=== PATIENT | female | born 1945 | race Caucasian/White ===

== ENCOUNTER 2017-08-28 18:27 | Emergency (ER) | payer MEDICAID, SELFPAY ==
[2017-08-28 18:28] VITALS: BP 153/77; PULSE 74; RESP 16; TEMP 36.9; O2SAT 96; BMI 23.0
--- NOTE | 2017-08-28 18:56 | RAD_ITS ---
STUDY: X-RAY - RIGHT HAND REASON FOR EXAM: Female, 72 years old. MCP pain and swelling TECHNIQUE: 3 view(s) of the hand. COMPARISON: None. FINDINGS: Normal radiocarpal articulation. Normal distal radioulnar joint. Normal visualized carpal bones. Normal carpal articulations Normal carpometacarpal articulation of the thumb. Normal second through fifth carpometacarpal joints. Normal metacarpi. Normal metacarpophalangeal joint of the thumb. Normal interphalangeal joint of the thumb. Normal proximal and distal phalanges of the thumb. Normal metacarpophalangeal joints of the second through fifth fingers. Normal proximal interphalangeal joints of the second through fifth fingers. There are mild degenerative changes of the DIP joints Normal phalanges of the second through fifth fingers. The soft tissue structures are unremarkable. RAD/Hand Min 3 Views IMPRESSION: Mild arthritic changes. No evidence for acute fracture. Electronically Signed: Otto Carrillo MD at 20:16 EDT , Service support ,
--- NOTE | 2017-08-28 20:06 | ED.DCSUM_ITS ---
- ER Visit Summary Date of Service: 08/28/17 Chief Complaint: [] Right knuckle swelling History of Present Illness: The patient is a 72 F [] complaining of right knuckle swelling beginning today after she awoke. Denies any increased use of the extremity or injury to the affected knuckle. She reports her right long finger MCP joint has slight discomfort. No other complaints at this time. Physical Examination: [] Afebrile, vital signs stable. There is slight swelling to the dorsal aspect of the right MCP joint. There is no warmth or erythema. There is good range of motion. Patient is neurovascularly intact distally to the affected digit. Test Results: [] X-rays appear unremarkable per my interpretation of the right hand. Emergency Department Course and Treatment: [] Patient was evaluated with x-rays and no obvious findings evident. Patient was encouraged to ice and take Tylenol for the discomfort. She was instructed to follow-up with her primary care physician. Treatment Plan: [] Follow-up with PCP. Disposition: [] Discharge, stable. Impression: [] Right MCP joint swelling This note was generated with [employer] dictation software. It may contain incorrect words, spelling, and punctuation that were not noted in review of the chart prior to signing ED Disposition - Plan for ED Patient: Chief Complaint: Upper Extremity Injury Referrals: Shawn Almeida MD [Primary Care Provider] -
--- NOTE | 2017-08-28 20:06 | ED.DEP ---
ED Disposition - Plan for ED Patient: Disposition: Home or Assisted Living Chief Complaint: Upper Extremity Injury Instructions: Living with Osteoarthritis, What Is Osteoarthritis? Referrals: Shawn Almeida MD [Primary Care Provider] -
[2017-08-28 20:11] VITALS: BP 148/78; PULSE 75; RESP 14; O2SAT 98
== END 2017-08-28 20:12 | disposition home or self-care (01) ==
PROVIDERS: Emergency Provider Emergency Medicine; Family Provider Family Medicine; PCP Family Medicine
DX: M19.041 Primary osteoarthritis, right hand (principal); E11.9 Type 2 diabetes mellitus without complications; Z79.4 Long term (current) use of insulin; Z79.899 Other long term (current) drug therapy
CPT/HCPCS: 73130; 99282

== ENCOUNTER 2017-10-07 23:13 | Emergency (ER) | payer MEDICAID, SELFPAY ==
[2017-10-07 23:14] VITALS: BP 156/63; PULSE 75; RESP 18; TEMP 36.4; O2SAT 98; BMI 40.9
[2017-10-07] MEDS: HYDROcodone Bitartrate/Apap 5/325 Tablet PO (23:56)
--- NOTE | 2017-10-07 23:59 | RAD_ITS ---
STUDY: X-RAY - RIGHT KNEE REASON FOR EXAM: Female, 72 years old. TECHNIQUE: view(s) of the knee. COMPARISON: None. FINDINGS: There is a moderate degree of osteoarthritis of the knee demonstrated by small spurs from the tibial and femoral condyles and from the margins of the patella. There are no fractures or dislocations and no knee joint effusion. The quadriceps and patellar tendons are normal. The lateral patellofemoral articulation is markedly narrowed and very irregular looking. RAD/Knee 4 or More Views IMPRESSION: No fracture. Moderate osteoarthritis of the right knee Electronically Signed: Richardson Camacho, at 0:24 EDT Tel , Service support ,
--- NOTE | 2017-10-08 00:38 | ED.VISSUMM ---
- ER Visit Summary Date of Service: 10/08/17 Chief Complaint: Right knee pain History of Present Illness: The patient is a [address] Almeida. She reports she has right knee pain that began yesterday. She denies any trauma. No fall, MVA, or change in activity. She describes an aching pain is 10-10 severity. Is worsened by walking. Son relieved with arthritis pain cream or Tylenol. She denies any paresthesias or weakness. Review of systems: General: No fever, chills, cold sweats. Cardiovascular: No chest pain, palpitations. Respiratory: No cough, shortness of breath, dyspnea on exertion. Gastrointestinal: No abdominal pain, nausea, vomiting, diarrhea, melena, or hematochezia. Genitourinary: No dysuria, frequency, hematuria. Skin: No rash. Neuro: No headache, numbness, weakness. Physical Examination: Vitals: Stable. Afebrile. General: Well-nourished and well-developed. Head: Normocephalic atraumatic. Neck: Supple, no lymphadenopathy. No JVD. Nontender. Cardiovascular: Regular rate and rhythm. No murmurs. Respiratory: No respiratory distress. Clear to auscultation bilaterally. Abdominal: Soft, nontender, nondistended, normal bowel sounds. No guarding, rebound, or peritoneal signs. Back: Nontender. Extremities: Mild diffuse tenderness palpation over entire knee. This is moderate over her patella. There is no joint effusion. She has no erythema or warmth to suggest a septic joint. She has good range of motion. She has pain, but no ligamentous instability with anterior posterior drawer or medial/lateral stress. She is neurovascular intact distal this. She is a 2+ dorsalis pedis pulse.. Skin: Normal color, no rash. Neurologic: Alert and oriented ?3. Cranial nerves II through XII are intact. Normal strength and sensation. Psych: Normal affect. Test Results: Right knee x-ray shows degenerative changes and no acute disease. Emergency Department Course and Treatment: Patient was treated with [place] and is resting comfortably. Treatment Plan: Patient will be discharged with [place] and Colace. Instructed to follow-up her primary care physician in 1 week if not improving. Return to the emergency department for any worsening symptoms. Disposition: To home in improved and stable condition. Impression: 1. Right knee pain, acute. This note was generated with [employer] dictation software. It may contain incorrect words, spelling, and punctuation that were not noted in review of the chart prior to signing ED Disposition - Plan for ED Patient: Disposition: Home or Assisted Living Chief Complaint: Lower Extremity Injury Instructions: ED Knee Pain [facility] Prescriptions: Hydrocodone Bitart/Apap 5-325 [[place] 5MG-325MG] 1 tablet PO Q4H PRN PRN 2 Days #10 tablet PRN Reason: Pain Docusate Sodium [Colace] 100 mg PO DAILY #20 cap Referrals: Shawn Almeida MD [Primary Care Provider] - 3-5 Days if not improving
[2017-10-08 01:05] VITALS: BP 137/89; PULSE 84; RESP 22; O2SAT 97
--- NOTE | 2017-10-08 01:05 | ED.RN ---
THIS NURSE REVIEWED D/C INSTRUCTIONS WITH PT. PT VERBALIZED UNDERSTANDING OF INSTRUCTIONS. PT DENIES FURTHER NEEDS OR QUESTIONS AT THIS TIME.
== END 2017-10-08 01:06 | disposition home or self-care (01) ==
LOC: ED 23:54
PROVIDERS: Emergency Provider Emergency Medicine; Family Provider Family Medicine; PCP Family Medicine
DX: M25.561 Pain in right knee (principal); I10 Essential (primary) hypertension; E78.00 Pure hypercholesterolemia, unspecified; E11.9 Type 2 diabetes mellitus without complications; Z79.4 Long term (current) use of insulin; Z79.899 Other long term (current) drug therapy
CPT/HCPCS: 73564; 99282

== ENCOUNTER 2018-04-10 16:20 | Emergency (ER) | payer MEDICAID, SELFPAY ==
[2018-04-10 16:21] VITALS: BP 151/64; PULSE 66; RESP 17; TEMP 36.3; O2SAT 96; BMI 28.0
--- NOTE | 2018-04-10 17:38 | DCINST.ED_ITS ---
ED Disposition - Plan for ED Patient: Chief Complaint: Dental Instructions: ED Tooth Pain Prescriptions: Hydrocodone Bitart/Apap 5-325 [[place] 5MG-325MG] 1 tablet PO Q4H PRN PRN 2 Days #10 tablet PRN Reason: Pain Penicillin V Potassium 500 mg PO 4X/DAY #40 tablet Referrals: Shawn Almeida MD [Primary Care Provider] -
--- NOTE | 2018-04-10 17:42 | ED.DCSUM_ITS ---
- ER Visit Summary Date of Service: 04/10/18 Chief Complaint: Dental pain History of Present Illness: The patient is a 72 F presenting with right lower tooth pain. This has been ongoing for the past week. She has tried aspirin and Tylenol at home. She denies fever or swelling. She does not currently have a dentist. Denies other complaints. Physical Examination: Vitals are stable. Patient is afebrile. Alert no acute distress. HEENT exam: Widespread dental decay, right lower molar tenderness and looseness. No surrounding fluctuance. No sublingual edema. Lungs are clear and equal bilaterally. Heart is regular rate and rhythm. Extremities are unremarkable. Skin is warm and dry. Remainder of exam is unremarkable. Emergency Department Course and Treatment: Patient is given a short course of [place] and penicillin. Advised follow-up with dentist. Advised return to ED if worsening complaints. Disposition: Discharge home Impression: Odontalgia This note was generated with [employer] dictation software. It may contain incorrect words, spelling, and punctuation that were not noted in review of the chart prior to signing ED Disposition - Plan for ED Patient: Chief Complaint: Dental Instructions: ED Tooth Pain Prescriptions: Hydrocodone Bitart/Apap 5-325 [[place] 5MG-325MG] 1 tablet PO Q4H PRN PRN 2 Days #10 tablet PRN Reason: Pain Penicillin V Potassium 500 mg PO 4X/DAY #40 tablet Referrals: Shawn Almeida MD [Primary Care Provider] -
[2018-04-10] MEDS: HYDROcodone Bitartrate/Apap 5/325 Tablet PO (17:52)
[2018-04-10 17:56] VITALS: BP 122/67; PULSE 71; RESP 15; O2SAT 98
== END 2018-04-10 17:59 | disposition home or self-care (01) ==
LOC: ED 17:45
PROVIDERS: Emergency Provider Emergency Medicine; Family Provider Family Medicine; PCP Family Medicine
DX: K02.9 Dental caries, unspecified (principal); I10 Essential (primary) hypertension; E11.9 Type 2 diabetes mellitus without complications; Z79.4 Long term (current) use of insulin; Z79.899 Other long term (current) drug therapy
CPT/HCPCS: 99282

== ENCOUNTER 2018-06-05 14:56 | Emergency (ER) | payer MEDICAID, SELFPAY ==
[2018-06-05 14:57] VITALS: BP 121/52; PULSE 75; RESP 17; TEMP 36.8; O2SAT 95; BMI 26.4
--- NOTE | 2018-06-05 16:31 | CT_ITS ---
STUDY: CT ABDOMEN AND PELVIS WITHOUT CONTRAST REASON FOR EXAM: Female, 73 years old. Left lower quadrant pain RADIATION DOSAGE (If Supplied By Facility): CTDIvol = ( 8.68 ) mGy, DLP = ( 409.64 ) mGycm TECHNIQUE: Transaxial images were obtained from the dome of the diaphragm to the symphysis pubis without oral contrast, and without intravenous contrast. Sagittal and coronal images were reconstructed. Individualized dose optimization techniques were used for this CT. COMPARISON: CT 03/05/2017. FINDINGS: The visualized lung bases are unremarkable. There is likely mild left ventricular enlargement. There is a small left hiatal hernia. There is wall thickening of the lower esophagus. There are mild groundglass opacities within the lung bases. There is wall thickening of the stomach and the stomach is decompressed. There is prior cholecystectomy with surgical clips in the gallbladder fossa. There are no focal liver lesions. Exam is limited due to lack of IV contrast.. Normal spleen. Normal pancreas. There is a small anterior periumbilical fatty hernia. There is mild adjacent skin thickening. There is additional anterior abdominal wall hernia within the upper pelvis. Normal bilateral adrenal glands. Normal right kidney. There are stable 7 mm calculus lower pole of kidney. Mild cortical irregularity left kidney unchanged. There is no hydronephrosis of either kidney. There are stable vascular calcifications in the pelvis. There are no ureteral calculi. Normal visualized stomach. Normal small intestine. There is a moderate colonic fecal load. The appendix is visualized and appears normal. Normal abdominal aorta. Normal inferior vena cava. Normal retroperitoneum. Normal urinary bladder. Evaluation of bony structures is limited due to significant respiratory motion. There are significant multilevel degenerative changes involving the lower lumbar spine with disc osteophyte complexes. There is new significant disc space narrowing at L5-S1 with new mild endplate irregularities with compared to prior MRI lumbar spine. There is worsening loss of height of the L4-L5 disc space as well. There is new vacuum disc phenomena within the L5-S1 disc space. There is likely prior hysterectomy. CT/Abdomen/Pelvis without Cont IMPRESSION: Stable 7 mm left renal calculus, stable mild cortical irregularity left kidney which is either congenital variant versus old renal scarring, no ureteral calculi and no hydronephrosis Moderate colonic fecal load likely partial fecal impaction Significant spondylosis lower lumbar spine with worsening of changes at L4-L5 and L5-S1; the changes at L5-S1 are likely due to degenerative changes secondary to disc space collapse and mild cortical deformities. The possibility of discitis osteomyelitis cannot be excluded. MRI lumbar spine follow-up is recommended Likely mild left ventricular enlargement which could be further evaluated with cardiac echo Small hiatal hernia with wall thickening of the lower esophagus which could be secondary to reflux esophagitis, pathologic wall thickening cannot be excluded; this should be further evaluated with endoscopy or barium swallow Small fatty anterior abdominal wall hernias Wall thickening of the stomach which most likely is due to decompression which could also be further evaluated with upper GI or endoscopy Prior cholecystectomy Likely prior hysterectomy Electronically Signed: Bronson Garza, at 17:45 EST Tel , Service support ,
[2018-06-05] MEDS: 0.9% Normal Saline 1,000 ML 250 ML IV (16:49)
[2018-06-05] MEDS: Ondansetron 4 MG/2 ML Vial IV (16:49)
[2018-06-05] MEDS: Morphine 4 MG/ML Syringe IV (16:49)
[2018-06-05 17:11] LABS: Anion Gap 6 (5-15); BUN 57 mg/dL (7-18); BUN/Creat Ratio 28.8 RATIO (10-20); Calcium,Total 8.5 mg/dL (8.5-10.1); Chloride 107 mmol/L (98-107); Creatinine, Serum 1.98 mg/dL (0.55-1.02); EST Glomerular Filtration Rate 26 mL/min (>60); Est Glom Filt Rate - Afr Amer 32 mL/min (>60); Estimated Creatinine Clearance 19.67 ml/min; Glucose 141 mg/dL (74-106); Potassium 4.2 mmol/L (3.5-5.1); Sodium Level 138 mmol/L (136-145)
[2018-06-05 17:17] LABS: Absolute Neutrophil Count 9.3 X10^3/uL (2.0-7.7); Basophil# 0.01 X10^3/uL; Basophil% 0.1 % (0-1); Eosinophil# 0.24 X10^3/uL; Eosinophils% 1.7 % (0-5); Hematocrit 37.9 % (37-47); Hemoglobin 11.9 g/dl (12.0-15.0); Lymphocyte % 24.6 % (19-41); Mean Corp Hgb Conc 31.4 g/gl (32-36); Mean Corpuscular Hgb 27.1 pg (27.0-32.0); Mean Corpuscular Volume 86.3 fL (81-99); Mean Platelet Vol. 9.2 fl (6.2-12.0); Monocyte% 5.8 % (0-10); Neutrophil # 9.33 X10^3/uL (2.7-7.7); Neutrophil % 67.4 % (47-70); Platelet Count 367 K/mm3 (150-450); RBC Distribution Width CV 15.1 % (11.6-14.6); RBC Distribution Width SD 48.3 fl (35.1-43.9); Red Blood Count 4.39 M/mm3 (4.2-5.4); White Blood Count 13.8 K/mm3 (4.4-11.0)
[2018-06-05 17:24] LABS: POSITIVE COUNT NO; POSITIVE DIFFERENTIAL NO; POSITIVE MORPHOLOGY NO
[2018-06-05 19:15] LABS: Mucous, Urine 0 SEEN /hpf (<or=2+); Red Blood Cells-Urine 0 SEEN /hpf (0-5)
[2018-06-05 19:21] LABS: Color, Urine Yellow (Yellow); Glucose, Dipstick Normal (Normal); Ketone-Dipstick Negative (Negative); Leukocyte Esterase-Dipstick 500 /ul (Negative); Nitrite-Dipstick Negative (Negative); Occult Blood-Urine 10 /ul (Negative); Protein-Dipstick 30 mg/dl (Negative); Urine Bilirubin Dipstick Negative (Negative); Urine Clarity Cloudy (Clear); Urine Urobilinogen Normal (Normal)
[2018-06-05 19:30] LABS: Bacteria 2+ /hpf (None Seen); Squamous Epithelial Cells - UA 10-25 SEEN /hpf (5-10); White Blood Cells 0-5 SEEN /hpf (0-5)
--- NOTE | 2018-06-05 19:42 | ED.DCSUM_ITS ---
- ER Visit Summary Date of Service: 06/05/18 Chief Complaint: Left flank pain History of Present Illness: The patient is a [address] Almeida. She reports she has left flank pain that began 2 days ago. It is an aching pain stems in severity. Is worsened by walking or sitting. She taken Tylenol and use a heating pad without relief. She had nausea without vomiting. No diarrhea. Last bowel was today. She had no melena or hematochezia. She reports to frequent urination, but no dysuria or hematuria. She was seen in urgent care on May 30 and was placed on Macrobid for a UTI. On review of systems patient reports that she has a little bit of cough. No fever or chills. No chest pain or shortness of breath. She denies any other complaints. Physical Examination: Vitals: Stable. Afebrile. General: Well-nourished and well-developed. Head: Normocephalic atraumatic. Neck: Supple, no lymphadenopathy. No JVD. Nontender. Cardiovascular: Regular rate and rhythm. No murmurs. Respiratory: No respiratory distress. Clear to auscultation bilaterally. Abdominal: Soft, moderate left lower quadrant tenderness to palpation, nondistended, normal bowel sounds. No guarding, rebound, or peritoneal signs. Back: Mild tenderness palpation in the paraspinous muscular just to the left of her lumbar spine. Negative straight leg raise bilaterally. 5 out of 5 dorsiflexion, plantarflexion, extensor hallucis longus bilaterally. Normal sensation light touch throughout.. Extremities: Nontender, no edema. Skin: Normal color, no rash. Neurologic: Alert and oriented ?3. Cranial nerves II through XII are intact. Normal strength and sensation. Psych: Normal affect. Test Results: CBC is more for white count 13.8 with hemoglobin 11.9. Chem-7 is more for glucose 131, BUN of 57, creatinine 1.98. UA has 10-25 epithelial cells and no evidence of infection. Clinical Impression(s) from Imaging Studies Abdomen/Pelvis CT 06/05/18 16:31 IMPRESSION: Stable 7 mm left renal calculus, stable mild cortical irregularity left kidney which is either congenital variant versus old renal scarring, no ureteral calculi and no hydronephrosis Moderate colonic fecal load likely partial fecal impaction Significant spondylosis lower lumbar spine with worsening of changes at L4-L5 and L5-S1; the changes at L5-S1 are likely due to degenerative changes secondary to disc space collapse and mild cortical deformities. The possibility of discitis osteomyelitis cannot be excluded. MRI lumbar spine follow-up is recommended Likely mild left ventricular enlargement which could be further evaluated with cardiac echo Small hiatal hernia with wall thickening of the lower esophagus which could be secondary to reflux esophagitis, pathologic wall thickening cannot be excluded; this should be further evaluated with endoscopy or barium swallow Small fatty anterior abdominal wall hernias Wall thickening of the stomach which most likely is due to decompression which could also be further evaluated with upper GI or endoscopy Prior cholecystectomy Likely prior hysterectomy Electronically Signed: Bronson Garza, at 17:45 EST Tel , Service support , Emergency Department Course and Treatment: Patient was treated the dose of morphine and Zofran IV. She is resting comfortably. Treatment Plan: I did review the findings on the CT with the patient. In my opinion none of these explain the pain that she is having. The read is essentially worthless. On this they have suggested that she needs an of her lumbar spine, a cardiac echo, endoscopy or barium swallow, upper GI. Patient has back pain that is reproducible in left lower quadrant pain. The CT does show constipation. Patient will be discharged with magnesium citrate. She is given a prescription for [place] and Colace for her back pain. Instructed to follow-up her primary care physician in 1-2 days if not improving. Return to the emergency department for any worsening symptoms. Disposition: To home in improved and stable condition. Impression: 1. Abdominal pain, uncertain cause. 2. Low back pain. This note was generated with [employer] software. It may contain incorrect words, spelling, and punctuation that were not noted in review of the chart prio r to signing ED Disposition - Plan for ED Patient: Disposition: Home or Assisted Living Instructions: ED Abdominal Pain Unkn Cause Prescriptions: Hydrocodone Bitart/Apap 5-325 [[place] 5MG-325MG] 1 tablet PO Q6H PRN PRN 3 Days #10 tablet PRN Reason: Pain Ondansetron [Zofran Odt] 4 mg PO Q8H PRN PRN #10 tablet PRN Reason: Nausea Docusate Sodium [Colace] 100 mg PO DAILY #20 capsule Referrals: Shawn Almeida MD [Primary Care Provider] - 3-5 Days
[2018-06-05 20:27] VITALS: BP 109/64; PULSE 72; RESP 16
[2018-06-05] MEDS: Magnesium Citrate 300 ML PO (20:27)
== END 2018-06-05 20:28 | disposition home or self-care (01) ==
LOC: ED 16:49
PROVIDERS: Emergency Provider Emergency Medicine; Family Provider Family Medicine; PCP Family Medicine
DX: R10.32 Left lower quadrant pain (principal); M54.5 Low back pain; I10 Essential (primary) hypertension; E11.9 Type 2 diabetes mellitus without complications; Z79.4 Long term (current) use of insulin; Z79.899 Other long term (current) drug therapy
CPT/HCPCS: 74176; 80048; 81001; 85025; 96374; 96375; 99284; J7030; J2405

== ENCOUNTER 2019-08-04 12:49 | Inpatient (IN) | payer MEDICAID, SELFPAY ==
[2019-08-04] VITALS (17 sets, daily range): BP systolic 116–167; BP diastolic 44–84; PULSE 61–82; RESP 14–19; TEMP 36–36.8; O2SAT 93–98; BMI 25.9; BMI 26.2
--- NOTE | 2019-08-04 13:22 | RAD_ITS ---
STUDY: X-RAY CHEST REASON FOR EXAM: Female, 74 years old. WEAKNESS -- NUMBNESS, TINGLING TO HANDS AND FEET TECHNIQUE: 2 frontal images of the chest were obtained. COMPARISON: March 27, 2017 FINDINGS: There is no new focal consolidation. Normal size heart. Normal mediastinum and roya. Normal visualized pulmonary arteries. Normal visualized aortic arch and descending thoracic aorta. There are diffuse degenerative changes of the visualized thoracic spine. There is superior migration of the humeral heads may be secondary to underlying rotator cuff injuries. There is no demonstrated abnormality of the visualized soft tissue structures of the upper abdomen. RAD/Chest 1 View (Portable) IMPRESSION: No acute cardiopulmonary process. Electronically Signed: Shaina Franco MD at 14:34 EDT Tel , Service support ,
--- NOTE | 2019-08-04 13:22 | CT_ITS ---
STUDY: CT BRAIN WITHOUT CONTRAST REASON FOR EXAM: Female, 74 years old. FALLING, UNABLE TO WALK TODAY. Hypertension. RADIATION DOSAGE (If Supplied By Facility): CTDIvol = ( 44.99 ) mGy, DLP = ( 694.87 ) mGycm TECHNIQUE: Transaxial CT imaging of the brain was performed without administration of intravenous contrast material. Individualized dose optimization techniques were used for this CT. COMPARISON: No relevant priors. FINDINGS: Normal soft tissue structures. Normal calvarium. There is mild cerebral atrophy with widening of the extra-axial spaces and ventricular dilatation. Normal white matter tracts of the cerebral hemispheres. Normal basal ganglia and thalami. Normal brainstem. Normal cerebellum. There is no intracranial hemorrhage. There are no findings of an acute ischemic infarction. Normal visualized paranasal sinuses. CT/Brain/Head without Contrast IMPRESSION: Chronic involutional changes of the brain. Electronically Signed: Shaina Franco MD at 14:21 EDT Tel , Service support ,
--- NOTE | 2019-08-04 13:23 | EKG12_ITS ---
Test Reason : NUMBNESS Blood Pressure : / mmHG Vent. Rate : 059 BPM Atrial Rate : 059 BPM P-R Int : 186 ms QRS Dur : 148 ms QT Int : 442 ms P-R-T Axes : 097 -63 037 degrees QTc Int : 437 ms Sinus bradycardia Right bundle branch block Left anterior fascicular block Bifascicular block Abnormal ECG Confirmed by GILBERT ROWELL, BOB ([id number]), online content editor SEPIDEH CESAR ([id number]) on 08/06/2019 10:01:50 AM Referred By: ZULEMA Confirmed By:BOB HUNT MD
--- NOTE | 2019-08-04 13:28 | ED.VISSUMM ---
- ER Visit Summary Date of Service: 08/04/19 Chief Complaint: Generalized weakness with reported bilateral numbness in her hands and feet. History of Present Illness: The patient is a 74 F no acute distress. Vital signs are stable and afebrile. A large patient has a past medical history of chronic back pain but no prior back surgeries. Prior TIA, insulin-dependent diabetes and kidney stones. She states for a week she has had numbness and tingling in both hands and both feet. Said when she walks she feels weak. Denies any bowel or bladder incontinence. No dysuria. No fever. She has had intermittent headaches. No falls or head trauma. She is on no blood thinners. She denies any nausea, vomiting or diarrhea. No melena. Physical Examination: Older female no acute distress. Vital signs stable afebrile. Pulse ox 93% on room air no hypoxia. H EENT exam unremarkable. Pupils are unreactive light extra motions are intact. No facial droop. Tongue midline. Normal speech. Neck nontender. Lungs clear to auscultation bilaterally. Heart regular rhythm no murmur. Abdomen soft nontender. Normal bowel sounds no peritoneal signs. Patient is moving all 4 extremities. Neurovascular intact. She has 5-5 architectural administrative assistant strength bilaterally. She has normal dorsi plantarflexion. No cauda equina. No saddle anesthesia. Normal medial thigh sensation. Back exam she has mild lumbar tenderness. No signs of trauma or fall. No redness or warmth. Neurologically she is awake and alert with no focal motor or sensory deficits. She complains of subjective decreased sensation in her hands and feet but objectively she does have sensation. She has normal movement. Her NIH score is 0. Test Results: Chest x-ray portable 1 view shows no acute abnormality read by myself and the radiologist. CAT scan of the brain read by the radiologist shows chronic changes no acute process reviewed by me. EKG shows a sinus bradycardia rate of 59 with a right bundle branch and left anterior fascicular block. A second EKG was done due to protocols for the treatment of hyperkalemia and it was a sinus rhythm rate of 61 and was unchanged. CBC showed a white count 8. Hemoglobin 10.5. Chemistry showed a potassium of 7.1. Gap of 5. Glucose of 410. BUN of 44 creatinine of 2.6 of this was acute on chronic renal insufficiency. UA negative. Troponin normal. Emergency Department Course and Treatment: Diabetic female with generalized weakness and numbness to all 4 extremities. The patient severe hyperkalemia. She was treated with IV calcium chloride. Albuterol aerosol x1. Kayexalate p.o. Insulin IV. On repeat exam she well at 1513 p.m. Treatment Plan: I have the hospitalist on page admit the patient for severe hyperkalemia. Disposition: Admission Impression: Generalized weakness due to severe hyperkalemia. Subjective numbness to both upper and lower extremities due to severe hyperkalemia Acute on chronic renal insufficiency EKG showing a right bundle branch block and a left anterior fascicular block History of insulin-dependent diabetes This note was generated with [employer] dictation software. It may contain incorrect words, spelling, and punctuation that were not noted in review of the chart prior to signing ED Disposition - Plan for ED Patient: Referrals: Shawn Almeida MD [Primary Care Provider] -
[2019-08-04 13:44] LABS: Absolute Lymphocyte Count 2.52 X10^3/uL (0.83-4.51); Absolute Neutrophil Count 4.7 X10^3/uL (2.0-7.7); Basophil# 0.04 X10^3/uL; Basophil% 0.5 % (0-1); Eosinophil# 0.33 X10^3/uL; Eosinophils% 4.1 % (0-5); Hematocrit 33.7 % (37-47); Hemoglobin 10.5 g/dL (12.0-15.0); Lymphocyte # 2.52 X10^3/ul (4.0); Lymphocyte % 31.1 % (19-41); Mean Corp Hgb Conc 31.2 g/dL (32-36); Mean Corpuscular Hgb 28.2 pg (27.0-32.0); Mean Corpuscular Volume 90.3 fL (81-99); Mean Platelet Vol. 10.3 fl (6.2-12.0); Monocyte# 0.48 X10^3/uL; Monocyte% 5.9 % (0-10); NRBC Flagged by Analyzer 0 % (0-5); Neutrophil # 4.67 X10^3/uL (2.7-7.7); Neutrophil % 57.8 % (47-70); Platelet Count 295 K/mm3 (150-450); RBC Distribution Width CV 13.5 % (11.6-14.6); RBC Distribution Width SD 44.6 fl (35.1-43.9); Red Blood Count 3.73 M/mm3 (4.2-5.4); White Blood Count 8.1 K/mm3 (4.4-11.0)
[2019-08-04 14:05] LABS: Mucous, Urine 0 SEEN /hpf (<or=2+); Red Blood Cells-Urine 0 SEEN /hpf (0-5); White Blood Cells 0 SEEN /hpf (0-5)
[2019-08-04 14:07] LABS: Anion Gap 5 (5-15); BUN 44 mg/dL (7-18); BUN/Creat Ratio 17.9 RATIO (10-20); Calcium,Total 9.1 mg/dL (8.5-10.1); Chloride 107 mmol/L (98-107); Creatinine, Serum 2.46 mg/dL (0.55-1.02); EST Glomerular Filtration Rate 21 mL/min (>60); Est Glom Filt Rate - Afr Amer 25 mL/min (>60); Estimated Creatinine Clearance 16.35 ml/min; Glucose 410 mg/dL (74-106); Potassium 7.1 mmol/L (3.5-5.1); Sodium Level 136 mmol/L (136-145)
--- NOTE | 2019-08-04 14:11 | EKG12_ITS ---
Test Reason : Blood Pressure : / mmHG Vent. Rate : 061 BPM Atrial Rate : 061 BPM P-R Int : 204 ms QRS Dur : 138 ms QT Int : 438 ms P-R-T Axes : 097 -60 031 degrees QTc Int : 440 ms Normal sinus rhythm Right bundle branch block Left anterior fascicular block Bifascicular block Abnormal ECG Confirmed by GILBERT ROWELL, BOB ([id number]), acquisitions editor SEPIDEH CESAR ([id number] on 08/06/2019 10:00:59 AM Referred By: ZULEMA Confirmed By:BOB HUNT MD
[2019-08-04 14:12] LABS: Color, Urine Yellow (Yellow); Glucose, Dipstick 1000 mg/dl (Normal); Ketone-Dipstick Negative (Negative); Leukocyte Esterase-Dipstick Negative /ul (Negative); Nitrite-Dipstick Negative (Negative); Occult Blood-Urine Negative /ul (Negative); Protein-Dipstick 30 mg/dl (Negative); Specific Gravity, Urine 1.015 (1.002-1.030); Urine Bilirubin Dipstick Negative (Negative); Urine Urobilinogen Normal (Normal)
[2019-08-04 14:14] LABS: Urine Clarity Clear (Clear)
[2019-08-04 14:24] LABS: Bacteria RARE /hpf (None Seen); Squamous Epithelial Cells - UA 0-5 SEEN /hpf (5-10)
[2019-08-04] MEDS: Insulin Lispro 5 UNIT in Syringe 0 ML 3 UNIT IV (14:36)
[2019-08-04] MEDS: Dextrose 50%-Water 25 GM/50 ML DISP.SYRIN IV (14:39)
[2019-08-04] MEDS: Sodium Bicarbonate 8.4% 50 ML Syringe 50 MEQ IV (14:40)
[2019-08-04] MEDS: Sodium Polystyrene Sulfonate 15 GM/60 ML UDC 30 GM PO (14:42)
[2019-08-04] MEDS: Albuterol 2.5 MG/3 ML VIAL.NEB. INHALATION (14:52)
[2019-08-04] MEDS: Calcium Gluconate 1 GM/10 ML Vial IV (14:55)
--- NOTE | 2019-08-04 15:43 | PCM.HP.STD ---
History of Present Illness Date of Admission: 08/04/19 Chief Complaint: Numbness and weakness The patient is a 74 year old F with a PMH as below who presents with weakness for the last several months that is been getting slowly worse, as well as worsening numbness in her bilateral hands and feet. She says that the numbness started about a week ago and has slowly been getting worse. She denies ascending numbness and weakness. She also admits to not eating and drinking very well for the last several weeks. Otherwise she denies any fevers or chills. In the ER she was found to have a potassium of 7.1 and blood sugar of 410. She was given insulin in the ER as well as albuterol aerosols, Kayexalate, and calcium gluconate for her potassium. Also her creatinine has increased and she is on lisinopril which may explain her elevation in potassium. Also the elevation potassium could explain her weakness and uncontrolled diabetes could explain her numbness. CT of her brain was unremarkable and her chest x-ray was clear. Past Medical History Past Medical History (Chronic Problems): Chronic Problems HTN (hypertension) (Chronic) HLD (hyperlipidemia) (Chronic) GERD (gastroesophageal reflux disease) (Chronic) Depression (Chronic) History of tobacco use (Chronic) Allergies blue dye Allergy (Verified 08/04/19 12:52) PASS OUT Home Medications: Ambulatory Orders Medication Instructions Recorded Citalopram [Celexa] 20 mg PO DAILY 07/10/14 Lisinopril 30 mg PO DAILY 07/10/14 Omeprazole 20 mg PO BID 07/10/14 Insulin Aspart [Novolog Flexpen] 15 units SC TIDAC #1 pen 03/08/17 Insulin Degludec [Tresiba 25 unit SQ BID #1 insuln.pen 03/08/17 Flextouch U-100] Amlodipine [Norvasc] 5 mg PO DAILY 06/05/18 Atorvastatin Calcium [Lipitor] 40 mg PO QHS 06/05/18 Docusate Sodium [Colace] 100 mg PO DAILY #20 capsule 06/05/18 Meloxicam 15 mg PO DAILY 06/05/18 Ondansetron [Zofran Odt] 4 mg PO Q8H PRN PRN #10 tablet 06/05/18 Oxybutynin [Ditropan] 5 mg PO DAILY 06/05/18 Pregabalin 50 mg PO TID 08/04/19 Surgical History: cholecystectomy, hysterectomy Psychiatric History: Depression 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 Denies: Chills, Fever, Weight Change HEENT: Denies: Head Aches, Sinus Congestion, Sinus Drainage Cardiovascular: Denies: Chest Pain, Palpitations Respiratory: Denies: Cough, Shortness of breath at rest, Sputum production Gastrointestinal: Denies: Abdominal Pain, Nausea, Vomiting Genitourinary: Denies: Dysuria Musculoskeletal: Denies: Joint Pain, Joint Tenderness Skin: Denies: Rash, Wounds Neurological: Reports: Numbness - Stocking?glove. Denies: Focal weakness, Tingling Psychiatric: Denies: Anxiety, Depression Hematologic/ Lymphatic: Denies: Easy Bruising, Easy Bleeding VTE Information - Inpt Only VTE Present on Admission: No - Physical Exam Vitals/I&O's: Vital Signs Temp Pulse Resp BP Pulse Ox 97 F L 73 18 131/44 H 96 08/04/19 12:52 08/04/19 15:02 08/04/19 15:02 08/04/19 15:02 08/04/19 15:02 Oxygen Delivery Method Room Air Weight: 142 lb Body Mass Index (BMI) 25.9 Finger Stick Blood Glucose 488 Intake and Output for Last 24 Hours 08/02/19 08/03/19 08/04/19 23:59 23:59 23:59 Intake Total 0.05 / 0.05 Balance 0.05 / 0.05 General: Alert, Oriented x3, Cooperative, No apparent distress HEENT: Atraumatic, PERRLA, EOMI, Normocephalic Oral: Dry Mucosa Neck: Supple, No JVD Lungs: Clear to auscultation, Normal air movement, No rhonchi, No wheeze, No rales Cardiovascular: Regular rate, Regular Rhythm, Normal S1, Normal S2, No murmurs Abdomen: Soft, Non Tender, Non-Distended, No Hepato-splenomegaly Extremities: No edema, Capillary Refill Less than 3 Seconds Skin: No rashes, No breakdown Musculoskeletal: No Muscle Wasting Neurological: - - Strength is 4-5 in bilateral upper and bilateral lower extremities, sensation is diminished in bilateral hands and bilateral feet in a stocking glove pattern Psych/Mental Status: Normal Affect, Appropriate Laboratory Results 08/04/19 13:35: WBC 8.1, RBC 3.73 L, Hgb 10.5 L, Hct 33.7 L, MCV 90.3, MCH 28.2, MCHC 31.2 L, RDW Std Deviation 44.6 H, RDW Coeff of Wade 13.5, Plt Count 295, MPV 10.3, Immature Gran % (Auto) 0.600, Neut % (Auto) 57.8, Lymph % (Auto) 31.1, [place] % (Auto) 5.9, Eos % (Auto) 4.1, Baso % (Auto) 0.5, Absolute Neuts (auto) 4.7, Absolute Lymphs (auto) 2.52, Nucleated RBC % 0 08/04/19 13:35: Sodium 136, Potassium 7.1 H*, Chloride 107, Carbon Dioxide 24.0, Anion Gap 5, BUN 44 H, Creatinine 2.46 H, Estim Creat Clear Calc 16.35, Est GFR (MDRD) Af Amer 25 L, Est GFR (MDRD) Non-Af 21 L, BUN/Creatinine Ratio 17.9, Glucose 410 H, Calcium 9.1, Troponin I < 0.015 08/04/19 14:00: Urine Color Yellow, Urine Clarity Clear, Urine pH 5.0, Ur Specific [place] 1.015, Urine Protein 30 H, Urine Glucose (UA) 1000 H, Urine Ketones Negative, Urine Occult Blood Negative, Urine Nitrite Negative, Urine Bilirubin Negative, Urine Urobilinogen Normal, Ur Leukocyte Esterase Negative, Urine RBC 0 SEEN, Urine WBC 0 SEEN, Ur Squamous Epith Cells 0-5 SEEN, Urine Bacteria RARE, Urine Mucus 0 SEEN Assessment/Plan All Active Problems Pyelonephritis (Acute) Uncontrolled type 2 diabetes mellitus (Acute) EMANUEL (acute kidney injury) (Acute) 1. Stocking?glove peripheral neuropathy/weakness likely secondary to neuropathy and hyperkalemia/hyperkalemia secondary to EMANUEL on CKD 3 and lisinopril use -We will start her on some IV fluids and hold her lisinopril -We will also hold her meloxicam -Creatinine is elevated to 2.4, baseline appears to be 1.7 -Peripheral neuropathy is in just her hands and feet, she is a diabetic therefore it is most likely due to her diabetes however we will check a vitamin B12 as well -If there is no resolution of her peripheral neuropathy she will likely need an EMG as an outpatient, will also consider potentially a cervical MRI -PT/OT -Potassium was 7.1, EKG was not significant for any peaked T waves though she does have a new right bundle branch block and left fascicular block which was not there in 2017, she received insulin, calcium gluconate, albuterol, Kayexalate, will recheck potassium this evening 2. HTN/HLD -Blood pressure is stable, will hold her lisinopril but continue with her Norvasc -Continue with her Lipitor 3. DM 2 with peripheral neuropathy -She is on Lyrica as an outpatient, we will hold this given her renal function -We will place her on twice daily long-acting insulin as well as NovoLog 10 units 3 times a day as well as a sliding scale insulin -Accu-Cheks AC at bedtime 4. GERD -Stable -Continue with PPI 5. Anxiety/depression -Stable -Continue with Celexa DVT: Heparin Inpatient E&M: 85939 Init Hosp L3
[2019-08-04] MEDS: 0.9% Normal Saline 1,000 ML 100 ML IV (17:32)
[2019-08-04] MEDS: 0.9% Saline Lock 10 ML Syringe IV (17:32)
[2019-08-04] MEDS: Insulin Lispro 100 UNIT/ML INSULN.PEN SC ×2 (18:11→21:30)
[2019-08-04] MEDS: Insulin Lispro 100 UNIT/ML INSULN.PEN 10 UNIT SC (18:12)
[2019-08-04 18:20] LABS: Bedside Glucose 272 mg/dL (70-110)
[2019-08-04 19:31] LABS: Anion Gap 8 (5-15); BUN 43 mg/dL (7-18); BUN/Creat Ratio 18.5 RATIO (10-20); Calcium,Total 9.4 mg/dL (8.5-10.1); Chloride 109 mmol/L (98-107); Creatinine, Serum 2.33 mg/dL (0.55-1.02); EST Glomerular Filtration Rate 22 mL/min (>60); Est Glom Filt Rate - Afr Amer 26 mL/min (>60); Estimated Creatinine Clearance 16.47 ml/min; Glucose 283 mg/dL (74-106); Sodium Level 143 mmol/L (136-145)
--- NOTE | 2019-08-04 21:15 | NURSING ---
Dr. Ramos called for updates. Reports pt has recently been diagnosed with normal pressure hydrocephalus and has an appointment to see Dr. Bae in the next couple of weeks to have fluid removed.
[2019-08-04] MEDS: Heparin Injection (Vial) 5,000 UNIT/ML VIAL 5000 UNIT SC (21:30)
[2019-08-04] MEDS: Pantoprazole Sodium 20 MG Tablet PO (21:31)
[2019-08-04] MEDS: Atorvastatin Calcium 40 MG Tablet PO (21:31)
[2019-08-04 21:46] LABS: Bedside Glucose 191 mg/dL (70-110)
[2019-08-05] VITALS (15 sets, daily range): BP systolic 101–184; BP diastolic 43–91; PULSE 65–95; RESP 14–19; TEMP 36.3–37.1; O2SAT 93–97
[2019-08-05] MEDS: 0.9% Normal Saline 1,000 ML 100 ML IV (02:16)
[2019-08-05 03:50] LABS: Absolute Lymphocyte Count 2.79 X10^3/uL (0.83-4.51); Absolute Neutrophil Count 4.6 X10^3/uL (2.0-7.7); Basophil# 0.02 X10^3/uL; Basophil% 0.2 % (0-1); Eosinophil# 0.49 X10^3/uL; Eosinophils% 5.8 % (0-5); Hematocrit 32.4 % (37-47); Hemoglobin 10.1 g/dL (12.0-15.0); Lymphocyte # 2.79 X10^3/ul (4.0); Lymphocyte % 33.3 % (19-41); Mean Corp Hgb Conc 31.2 g/dL (32-36); Mean Corpuscular Hgb 28.3 pg (27.0-32.0); Mean Corpuscular Volume 90.8 fL (81-99); Mean Platelet Vol. 10.4 fl (6.2-12.0); Monocyte# 0.44 X10^3/uL; Monocyte% 5.2 % (0-10); NRBC Flagged by Analyzer 0 % (0-5); Neutrophil # 4.63 X10^3/uL (2.7-7.7); Neutrophil % 55.3 % (47-70); Platelet Count 260 K/mm3 (150-450); RBC Distribution Width CV 13.5 % (11.6-14.6); RBC Distribution Width SD 45.1 fl (35.1-43.9); Red Blood Count 3.57 M/mm3 (4.2-5.4); White Blood Count 8.4 K/mm3 (4.4-11.0)
[2019-08-05 04:28] LABS: Anion Gap 5 (5-15); BUN 40 mg/dL (7-18); BUN/Creat Ratio 18.7 RATIO (10-20); Calcium,Total 8.6 mg/dL (8.5-10.1); Chloride 110 mmol/L (98-107); Creatinine, Serum 2.14 mg/dL (0.55-1.02); EST Glomerular Filtration Rate 24 mL/min (>60); Est Glom Filt Rate - Afr Amer 29 mL/min (>60); Estimated Creatinine Clearance 17.93 ml/min; Glucose 139 mg/dL (74-106); Potassium 4.9 mmol/L (3.5-5.1); Sodium Level 142 mmol/L (136-145)
[2019-08-05] MEDS: Heparin Injection (Vial) 5,000 UNIT/ML VIAL 5000 UNIT SC (05:53)
[2019-08-05 08:11] LABS: Bedside Glucose 178 mg/dL (70-110)
[2019-08-05] MEDS: Insulin Lispro 100 UNIT/ML INSULN.PEN SC ×2 (08:49→12:23)
[2019-08-05] MEDS: Insulin Lispro 100 UNIT/ML INSULN.PEN 10 UNIT SC ×2 (08:49→12:22)
[2019-08-05] MEDS: amLODIPine 5 MG Tablet PO (08:50)
[2019-08-05] MEDS: Pantoprazole Sodium 20 MG Tablet PO (08:50)
[2019-08-05] MEDS: Docusate Sodium 100 MG Capsule PO (08:50)
[2019-08-05] MEDS: Citalopram 20 MG Tablet PO (08:50)
[2019-08-05] MEDS: Tolterodine Tartrate 2 MG CAP.SA PO (08:55)
--- NOTE | 2019-08-05 13:05 | DCINST_ITS ---
You will use the following diet at home:: Cardiac Your food should be the consistency of: Regular Your liquids should be the consistency of: Regular/Thin Discharge Activity: Return to Normal Activity Call your doctor if you observe: Fever of 101 or Higher, Shortness of breath, Dizziness, Fainting spells, Swelling in the ankles, Chest pain, Increased palpitations (irregular heartbeat) Additional Instructions: Have a BMP repeated as an outpatient to evaluate kidney function and potassium level. Allergies/Adverse Reactions: Allergies blue dye Allergy (Verified 08/04/19 12:52) PASS OUT Medications to take at Discharge Citalopram [Celexa] 20 mg PO DAILY 07/10/14 Omeprazole 20 mg PO BID 07/10/14 Amlodipine [Norvasc] 10 mg PO DAILY 06/05/18 Atorvastatin Calcium [Lipitor] 40 mg PO DAILY 06/05/18 Docusate Sodium [Colace] 100 mg PO DAILY #20 capsule 06/05/18 Insulin Aspart [Novolog Flexpen] 20 units SUBCUT TIDAC 08/04/19 Insulin Degludec [Tresiba Flextouch U-100] 72 unit SQ DAILY 08/04/19 Multivitamin [Once Daily] 1 ea PO DAILY 08/04/19 Oxybutynin Chloride [Oxybutynin Chloride ER] 5 mg PO DAILY 08/04/19 Pregabalin 50 mg PO TID 08/04/19 Primary Care Physician: Shawn Almeida MD [Primary Care Provider] - Please follow up with your Primary Care Physician in: 1-2 weeks Test Results: Test results from this visit will be discussed in further detail at your follow- up appointment, if applicable.
--- NOTE | 2019-08-05 13:08 | DS.PCM_ITS ---
Discharge Date and Diagnosis Date of Admission: 08/04/19 Date of Discharge: 08/05/19 - Secondary Discharge Diagnosis Chronic Problems HTN (hypertension) (Chronic) HLD (hyperlipidemia) (Chronic) GERD (gastroesophageal reflux disease) (Chronic) Depression (Chronic) History of tobacco use (Chronic) Hospital Course and Treatment Imaging Results: CT Brain: IMPRESSION: Chronic involutional changes of the brain. CXR: IMPRESSION: No acute cardiopulmonary process. Consults: None Operations: None Procedures: None Summary of Care Provided: Per HPI: The patient is a 74 year old F with a PMH as below who presents with weakness for the last several months that is been getting slowly worse, as well as worsening numbness in her bilateral hands and feet. She says that the numbness started about a week ago and has slowly been getting worse. She denies ascending numbness and weakness. She also admits to not eating and drinking very well for the last several weeks. Otherwise she denies any fevers or chills. In the ER she was found to have a potassium of 7.1 and blood sugar of 410. She was given insulin in the ER as well as albuterol aerosols, Kayexalate, and calcium gluconate for her potassium. Also her creatinine has increased and she is on lisinopril which may explain her elevation in potassium. Also the elevation potassium could explain her weakness and uncontrolled diabetes could explain her numbness. CT of her brain was unremarkable and her chest x-ray was clear. Hospital Course: 1. Stocking?glove peripheral neuropathy/weakness likely secondary to neuropathy and hyperkalemia/hyperkalemia secondary to EMANUEL on CKD 4 and lisinopril use- 74-year-old female who presented from home with weakness for last several months and worsening peripheral numbness in both her hands and feet for about the last week, she was found to have an elevated potassium of 7.1 without any EKG changes on admission in the ER. Also her blood sugar was severely elevated to 410. Because of her potassium level she was admitted to the ICU and started on IV fluids. She was given Kayexalate as well as calcium gluconate, albuterol, and insulin. On the day of discharge her potassium was 4.9, and her creatinine was 2.14 down from 2.46. She is asking to go home. She says that her numbness has completely resolved and her peripheral extremities. Of vitamin B12 was added onto the labs for completeness and this is still pending. She does have chronic kidney disease which does appear to be around stage IV at this time therefore her lisinopril was discontinued on discharge and I recommend follow-up with her primary care doctor in a week or 2 for another repeat BMP as well blood pressure monitoring. She would be a better candidate for Coreg as an outpatient given her heart rates in the 80s and 90s while she has been here. Also recommend discontinuing her meloxicam given her kidney disease. I did continue with her Ivett on discharge to provide her some relief for her peripheral neuropathy from diabetes. I also had her evaluated by physical therapy who did recommend skilled therapy, I discussed this option with Mrs. Ramirez, however she did not want to go to a residential facility and she is asking to go home. I did discuss with her the risks and benefits of discharge and she expressed understanding. 2. Her other medical diagnoses were evaluated and her home medications were continued where appropriate - Physical Exam Vitals/I&O's: Vital Signs Temp Pulse Resp BP Pulse Ox 98.0 F 93 19 H 158/57 H 96 08/05/19 12:00 08/05/19 12:00 08/05/19 12:00 08/05/19 12:00 08/05/19 12:00 Oxygen Delivery Method Room Air Weight: 139 lb 12.369 oz Body Mass Index (BMI) 26.2 Finger Stick Blood Glucose 488 Intake and Output for Last 24 Hours 08/03/19 08/04/19 08/05/19 23:59 23:59 23:59 Intake Total 586.72 / 586.72 1300.00 / 1300.00 Output Total 500 / 500 1400 / 1400 Balance 86.72 / 86.72 -100.00 / -100.00 General: Alert, Oriented x3, Cooperative, No apparent distress HEENT: Atraumatic, PERRLA, EOMI, Normocephalic Oral: Dry Mucosa Neck: Supple, No JVD Lungs: Clear to auscultation, Normal air movement, No rhonchi, No wheeze, No rales Cardiovascular: Regular rate, Regular Rhythm, Normal S1, Normal S2, No murmurs Abdomen: Soft, Non Tender, Non-Distended, No Hepato-splenomegaly Extremities: No edema, Capillary Refill Less than 3 Seconds Skin: No rashes, No breakdown Musculoskeletal: No Muscle Wasting Neurological: - - Strength is 4-5 in bilateral upper and bilateral lower extremities, sensation is intact bilaterally Psych/Mental Status: Normal Affect, Appropriate Laboratory Results 08/04/19 13:35: WBC 8.1, RBC 3.73 L, Hgb 10.5 L, Hct 33.7 L, MCV 90.3, MCH 28.2, MCHC 31.2 L, RDW Std Deviation 44.6 H, RDW Coeff of Wade 13.5, Plt Count 295, MPV 10.3, Immature Gran % (Auto) 0.600, Neut % (Auto) 57.8, Lymph % (Auto) 31.1, [place] % (Auto) 5.9, Eos % (Auto) 4.1, Baso % (Auto) 0.5, Absolute Neuts (auto) 4.7, Absolute Lymphs (auto) 2.52, Nucleated RBC % 0 08/04/19 13:35: Sodium 136, Potassium 7.1 H*, Chloride 107, Carbon Dioxide 24.0, Anion Gap 5, BUN 44 H, Creatinine 2.46 H, Estim Creat Clear Calc 16.35, Est GFR (MDRD) Af Amer 25 L, Est GFR (MDRD) Non-Af 21 L, BUN/Creatinine Ratio 17.9, Glucose 410 H, Calcium 9.1, Troponin I < 0.015 08/04/19 14:00: Urine Color Yellow, Urine Clarity Clear, Urine pH 5.0, Ur Specific [place] 1.015, Urine Protein 30 H, Urine Glucose (UA) 1000 H, Urine Ketones Negative, Urine Occult Blood Negative, Urine Nitrite Negative, Urine Bilirubin Negative, Urine Urobilinogen Normal, Ur Leukocyte Esterase Negative, Urine RBC 0 SEEN, Urine WBC 0 SEEN, Ur Squamous Epith Cells 0-5 SEEN, Urine Bacteria RARE, Urine Mucus 0 SEEN 08/04/19 18:11: POC Glucose 272 H 08/04/19 18:55: Vitamin B12 Pending 08/04/19 18:55: Sodium 143, Potassium 5.0, Chloride 109 H, Carbon Dioxide 26.0, Anion Gap 8, BUN 43 H, Creatinine 2.33 H, Estim Creat Clear Calc 16.47, Est GFR (MDRD) Af Amer 26 L, Est GFR (MDRD) Non-Af 22 L, BUN/Creatinine Ratio 18.5, Glucose 283 H, Calcium 9.4 08/04/19 21:27: POC Glucose 191 H 08/05/19 03:30: WBC 8.4, RBC 3.57 L, Hgb 10.1 L, Hct 32.4 L, MCV 90.8, MCH 28.3, MCHC 31.2 L, RDW Std Deviation 45.1 H, RDW Coeff of Wade 13.5, Plt Count 260, MPV 10.4, Immature Gran % (Auto) 0.200, Neut % (Auto) 55.3, Lymph % (Auto) 33.3, [place] % (Auto) 5.2, Eos % (Auto) 5.8 H, Baso % (Auto) 0.2, Absolute Neuts (auto) 4.6, Absolute Lymphs (auto) 2.79, Nucleated RBC % 0 08/05/19 03:30: Sodium 142, Potassium 4.9, Chloride 110 H, Carbon Dioxide 27.0, Anion Gap 5, BUN 40 H, Creatinine 2.14 H, Estim Creat Clear Calc 17.93, Est GFR (MDRD) Af Amer 29 L, Est GFR (MDRD) Non-Af 24 L, BUN/Creatinine Ratio 18.7, Glucose 139 H, Calcium 8.6 08/05/19 08:05: POC Glucose 178 H Current Medications Acetaminophen (Tylenol) 650 mg PO Q6H PRN PRN PRN Reason: Pain Score 1-10/Temp > 100.7 F Amlodipine Besylate (Norvasc) 5 mg PO DAILY [facility] Last Admin: 08/05/19 08:50 Dose: 5 mg Documented by: Atorvastatin Calcium (Lipitor) 40 mg PO QHS [facility] Last Admin: 08/04/19 21:31 Dose: 40 mg Documented by: Citalopram Hydrobromide (Celexa) 20 mg PO DAILY [facility] Last Admin: 08/05/19 08:50 Dose: 20 mg Documented by: Dextrose (D50w Syringe) 0 gm IV X1 PRN; Protocol PRN Reason: Hypoglycemia Docusate Sodium (Colace) 100 mg PO DAILY [facility] Last Admin: 08/05/19 08:50 Dose: 100 mg Documented by: Glucagon () 1 mg IM .X1 PRN PRN Reason: Hypoglycemia Heparin Sodium (Porcine) (Heparin Na) 5,000 unit SC Q8 [facility] Last Admin: 08/05/19 05:53 Dose: 5,000 unit Documented by: Sodium Chloride () 250 mls @ 15 mls/hr IV .[id number] PRN PRN Reason: Saline Flush Sodium Chloride () 250 mls @ 15 mls/hr IV .[id number] PRN PRN Reason: Additional IVPB Infusion Insulin Glargine (Lantus (Bkc)) 25 units SC BID [facility] Last Admin: 08/05/19 08:50 Dose: 25 units Documented by: Insulin Human Lispro (Humalog Kwikpen ([facility])) 10 unit SC TIDAC [facility] Last Admin: 08/05/19 12:22 Dose: 10 u Documented by: Insulin Human Lispro (Humalog Kwikpen (Bk)) 0 unit SC ACHS [facility]; Protocol Last Admin: 08/05/19 12:23 Dose: 6 u Documented by: Pantoprazole Sodium (Protonix) 20 mg PO BID [facility] Last Admin: 08/05/19 08:50 Dose: 20 mg Documented by: Sodium Chloride () 10 - 40 ml IV UD PRN PRN Reason: SALINE FLUSH Last Admin: 08/04/19 17:32 Dose: 10 ml Documented by: Tolterodine Tartrate (Detrol La) 2 mg PO DAILY [facility] Last Admin: 08/05/19 08:55 Dose: 2 mg Documented by: Discharge Activity: Return to Normal Activity Call your doctor if you observe: Fever of 101 or Higher, Shortness of breath, Dizziness, Fainting spells, Swelling in the ankles, Chest pain, Increased palpitations (irregular heartbeat) Home Medications: Medications to take at Discharge Citalopram [Celexa] 20 mg PO DAILY 07/10/14 Omeprazole 20 mg PO BID 07/10/14 Amlodipine [Norvasc] 10 mg PO DAILY 06/05/18 Atorvastatin Calcium [Lipitor] 40 mg PO DAILY 06/05/18 Docusate Sodium [Colace] 100 mg PO DAILY #20 capsule 06/05/18 Insulin Aspart [Novolog Flexpen] 20 units SUBCUT TIDAC 08/04/19 Insulin Degludec [Tresiba Flextouch U-100] 72 unit SQ DAILY 08/04/19 Multivitamin [Once Daily] 1 ea PO DAILY 08/04/19 Oxybutynin Chloride [Oxybutynin Chloride ER] 5 mg PO DAILY 08/04/19 Pregabalin 50 mg PO TID 08/04/19 Primary Care Physician: Shawn Almeida MD [Primary Care Provider] - Please follow up with your Primary Care Physician in: 1-2 weeks Disposition: Home Minutes spent on discharge:: 35 Patient Condition:: Stable Medical Necessity - Tobacco Use Smoking Status: Never smoker Meaningful Use Info Meaningful Use Diagnoses (Choose all that apply): None applicable Inpatient E&M: 55244 Disch Hosp
[2019-08-05 15:35] LABS: Bedside Glucose 295 mg/dL (70-110)
[2019-08-06 08:49] LABS: Vitamin B12 550 pg/mL (211-911)
== END 2019-08-05 14:16 | disposition home or self-care (01) | DRG 425 ==
LOC: ED 14:04 → ICU 16:10
PROVIDERS: Admitting Provider Family Medicine; Emergency Provider Emergency Medicine; PCP Family Medicine; Visit Provider Family Medicine
DX: E87.5 Hyperkalemia (principal); E11.42 Type 2 diabetes mellitus with diabetic polyneuropathy; N18.4 Chronic kidney disease, stage 4 (severe); E11.22 Type 2 diabetes mellitus with diabetic chronic kidney disease; I12.9 Hypertensive chronic kidney disease with stage 1 through stage 4 chronic kidney disease, or unspecified chronic kidney disease; I45.2 Bifascicular block; K21.9 Gastro-esophageal reflux disease without esophagitis; E78.5 Hyperlipidemia, unspecified; F32.9 Major depressive disorder, single episode, unspecified; Z87.891 Personal history of nicotine dependence; N17.9 Acute kidney failure, unspecified; F41.9 Anxiety disorder, unspecified
CPT/HCPCS: 70450; 71045; 80048; 81001; 82607; 82962; 84484; 85025; 93005; 94640; 97162; 97165; 99285; J7030; A4216; J0610

== ENCOUNTER 2019-09-12 15:06 | Emergency (ER) | payer MEDICAID, SELFPAY ==
[2019-08-04 17:11] VITALS: BMI 26.2
[2019-09-12 15:07] VITALS: BP 168/65; PULSE 91; RESP 16; TEMP 37.5; O2SAT 99; BMI 27.2
--- NOTE | 2019-09-12 16:32 | ED.DCSUM_ITS ---
History of Present Illness Chief Complaint: Lower Extremity Injury Informant: Patient Onset: Yesterday Context: Gradual Onset Timing: Continuous Quality of Pain: Aching Location: left knee Current Severity: Moderate Maximum Severity: Severe Worsened by: any movement Relieved by: remaining still Associated Symptoms: Loss of Funtion. Negative for: Parasthesia, Weakness Narrative: Patient denies injury, has maintained his onset of swelling and associated pain in her left knee that started yesterday and worsened today. She lives alone. She cannot stand, bear weight, or bend her left knee since the onset. She denies any known chronic arthritis in her knees. She denies a history of gout that she knows of. She denies any fevers or trouble breathing recently. Past Medical History - Allergies and Home Meds Allergies/Adverse Reactions: Allergies blue dye Allergy (Verified 09/12/19 15:09) PASS OUT Primary Care Physician: Shawn Almeida MD [Primary Care Provider] - Surgical History: cholecystectomy, hysterectomy Smoking Status: Never smoker - Family History Maternal Family History: Reports: Unknown Paternal Family History: Reports: Diabetes Physical Exam Vital Signs/Narrative: Vital Signs Temp Pulse Resp BP Pulse Ox 09/12/19 15:07 99.5 F H 91 16 168/65 H 99 Diagnostic/Tx/Re-eval Impressions Knee X-Ray 09/12/19 17:10 IMPRESSION: Severe degenerative disease. Soft tissue swelling and suprapatellar effusion. Correlate clinically to exclude a septic joint. Electronically Signed: Patricio Shin, at 18:27 EDT Tel , Service support , 09/12/19 17:10 Knee 4 or More Views [RAD] Stat 09/12/19 17:45 Fluid - Synovial (joint) Gram Stain - Preliminary Laboratory Results 09/12/19 09/12/19 09/12/19 17:00 17:00 17:45 WBC 13.3 H RBC 3.71 L Hgb 10.5 L Hct 33.2 L MCV 89.5 MCH 28.3 MCHC 31.6 L RDW Std Deviation 42.0 RDW Coeff of Wade 12.8 Plt Count 329 MPV 9.9 Immature Gran % (Auto) 0.500 Neut % (Auto) 76.7 H Lymph % (Auto) 14.8 L [place] % (Auto) 6.7 Eos % (Auto) 1.1 Baso % (Auto) 0.2 Absolute Neuts (auto) 10.2 H Absolute Lymphs (auto) 1.96 Nucleated RBC % 0 Sodium 142 Potassium 4.7 Chloride 111 H Carbon Dioxide 24.0 Anion Gap 7 BUN 39 H Creatinine 1.92 H Estim Creat Clear Calc 19.99 Est GFR (MDRD) Af Amer 33 L Est GFR (MDRD) Non-Af 27 L BUN/Creatinine Ratio 20.3 H Glucose 110 H Uric Acid 5.7 Calcium 9.3 Fluid Source OTHER Fluid Color YELLOW Fluid Appearance CLOUDY Fluid WBC 19.140 Fluid RBC 0.005 Fluid Tot Cell Count 19.172 H Fld Polynuclear WBCs # 17.947 Fld Polynuclear WBCs % 95.0 Fluid Mononuclear WBCs 0.944 Fld Mononuclear WBCs % 5.0 Fluid Neutrophils 93 Fluid Lymphocytes 6 Fluid Monocytes 1 Fluid Crystals SEE PATH REV Fluid Crystal Source SYNOVIAL Fl Crystal Path Review Will follow Fl Pathologist Comment May follow Fluid Comment 2 Not Reportable - Medical Decision Making Clinically, patient has significantly large effusion but there is no excessive warmth or erythema to suggest this is clearly a septic knee. My concern is that she really does not want to move it at all. Differential includes crystal induced arthritis, osteoarthritis and inflammatory effusion, as well as infectious etiologies. Less likely to be gonorrhea with this patient. X-ray shows severe arthritis. Blood work shows a mild leukocytosis, her uric acid is within normal limits which does not rule out the possibility of a gouty arthritic flare, and the patient provided written informed consent to arthrocentesis which was performed without difficulty, the patient felt much better just getting 30 cc of fluid out. It was cloudy, but otherwise looked fairly unremarkable, viscous, straw-colored, nonbloody. Results above. Significant amount of neutrophils, the read was very ambiguous with regards to crystals. I had nursing call the lab. They said they did not see any, however it was pending final pathology interpretation which will not happen today or tonight. This makes it more likely to be either inflammatory or septic, after discussing with Dr. Gallardo with orthopedics, everything here is consistent with this being an inflammatory effusion due to arthritis as the x-ray indicates. He states it would be reasonable for the patient to follow-up as an outpatient without antibiotics. I did send a culture. I will place the patient on daily Mobic and she is comfortable going home, she has a walker to use at home and she is bending her knee much better with an Simba wrap after the arthrocentesis was performed. Discussed reasons to return and she is comfortable with that plan calling for a ride. Procedures Procedure(s): Left knee arthrocentesis --after 1 cc of plain 1% lidocaine being placed after isopropanol prep, isopropanol was used again, at the medial aspect of the joint line, an 18-gauge needle was placed after obtaining written and verbal consent. Immediately able to aspirate transparent viscous straw-colored fluid without blood, a total of 30 cc was able to be aspirated. Patient tolerated well without complications. ED Disposition - Plan for ED Patient: Disposition: Home or Assisted Living Diagnosis: Osteoarthritis of left knee, Effusion, left knee Instructions: ED Osteoarthritis, ED Effusion Knee Prescriptions: Meloxicam [Mobic] 7.5 mg PO DAILY #30 tab Prescription Printed Referrals: Shawn Almeida MD [Primary Care Provider] - Ramírez Kolb DO [STAFF PHYSICIAN] - 3-5 Days if not improving
[2019-09-12 17:09] LABS: Absolute Lymphocyte Count 1.96 X10^3/uL (0.83-4.51); Absolute Neutrophil Count 10.2 X10^3/uL (2.0-7.7); Basophil# 0.03 X10^3/uL; Basophil% 0.2 % (0-1); Eosinophil# 0.14 X10^3/uL; Eosinophils% 1.1 % (0-5); Hematocrit 33.2 % (37-47); Hemoglobin 10.5 g/dL (12.0-15.0); Lymphocyte # 1.96 X10^3/ul (4.0); Lymphocyte % 14.8 % (19-41); Mean Corp Hgb Conc 31.6 g/dL (32-36); Mean Corpuscular Hgb 28.3 pg (27.0-32.0); Mean Corpuscular Volume 89.5 fL (81-99); Mean Platelet Vol. 9.9 fl (6.2-12.0); Monocyte# 0.89 X10^3/uL; Monocyte% 6.7 % (0-10); NRBC Flagged by Analyzer 0 % (0-5); Neutrophil # 10.19 X10^3/uL (2.7-7.7); Neutrophil % 76.7 % (47-70); Platelet Count 329 K/mm3 (150-450); RBC Distribution Width CV 12.8 % (11.6-14.6); Red Blood Count 3.71 M/mm3 (4.2-5.4); White Blood Count 13.3 K/mm3 (4.4-11.0)
--- NOTE | 2019-09-12 17:10 | RAD_ITS ---
STUDY: X-RAY - LEFT KNEE REASON FOR EXAM: Female, 74 years old. Left knee pain and swelling, no injury TECHNIQUE: 3 view(s) of the knee. 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 Note definite acute displaced fracture is identified. Extensive vascular calcifications are noted. RAD/Knee 4 or More Views IMPRESSION: Severe degenerative disease. Soft tissue swelling and suprapatellar effusion. Correlate clinically to exclude a septic joint. Electronically Signed: Patricio Shin, at 18:27 EDT Tel , Service support ,
[2019-09-12 17:27] LABS: Anion Gap 7 (5-15); BUN 39 mg/dL (7-18); BUN/Creat Ratio 20.3 RATIO (10-20); Calcium,Total 9.3 mg/dL (8.5-10.1); Chloride 111 mmol/L (98-107); Creatinine, Serum 1.92 mg/dL (0.55-1.02); EST Glomerular Filtration Rate 27 mL/min (>60); Est Glom Filt Rate - Afr Amer 33 mL/min (>60); Estimated Creatinine Clearance 19.99 ml/min; Glucose 110 mg/dL (74-106); Potassium 4.7 mmol/L (3.5-5.1); Sodium Level 142 mmol/L (136-145); Uric Acid 5.7 mg/dL (2.6-6.0)
[2019-09-12 18:01] LABS: Pathologist Comment/Body Fluid May follow
[2019-09-12 19:20] LABS: Body Fluid Mononuclear WBC # 0.944 10^3/uL; Red Cell Count/Body Fluid 0.005 10^6/ul
[2019-09-12 19:56] VITALS: BP 155/82; PULSE 93; RESP 17; O2SAT 98
[2019-09-12 21:02] LABS: Appearance/Body Fluid CLOUDY; Auto B Fluid Analyzer BKGD Ct COUNTS W/IN LIMITS (W/IN LIMITS); Color/Body Fluid YELLOW; Source- Body Fluid OTHER
[2019-09-12 21:03] LABS: Lymphocytes 6 %; Monocytes 1 %; Neutrophil (Segs) 93 %; Source- Body Fluid SYNOVIAL
[2019-09-12 21:04] LABS: Body Fluid QC Type(s) BF2Q
[2019-09-12 21:31] VITALS: BP 144/71; PULSE 71; RESP 18; O2SAT 98
[2019-09-13 12:18] LABS: Pathologist Review Reviewed
== END 2019-09-12 21:38 | disposition home or self-care (01) ==
PROVIDERS: Emergency Provider Emergency Medicine; PCP Family Medicine
DX: M17.12 Unilateral primary osteoarthritis, left knee (principal)
CPT/HCPCS: 73564; 80048; 84550; 85025; 87070; 87075; 87205; 89050; 89060; 99285; A4216

== ENCOUNTER 2019-11-30 13:20 | Emergency (ER) | payer MEDICAID, SELFPAY ==
[2019-11-30 13:21] VITALS: BP 146/79; PULSE 79; RESP 15; TEMP 36.6; O2SAT 94; BMI 24.3
--- NOTE | 2019-11-30 13:43 | ED.VIS.GEN ---
History of Present Illness Chief Complaint: Nausea/Vomiting Informant: Patient Narrative: Patient presents the emergency department for the evaluation of nausea vomiting. Patient states that she has had vomiting 5 times a day for 5 days. Around 1 AM today she had a bologna sandwich and some coffee. This stayed down. She states that she last vomited however around 11 AM today. No diarrhea. No history of small bowel obstructions. She denies prior abdominal surgeries. Past Medical History - Allergies and Home Meds Allergies/Adverse Reactions: Allergies blue dye Allergy (Verified 11/30/19 13:21) PASS OUT Primary Care Physician: Shawn Almeida MD [Primary Care Provider] - Surgical History: cholecystectomy, hysterectomy Smoking Status: Never smoker - Family History Maternal Family History: Reports: Unknown Paternal Family History: Reports: Diabetes Review of Systems General: Denies: Chills, Fever, Sweats Eyes: Denies: Visual changes - bilaterally, Diplopia ENT: Denies: Rhinorrhea, Sore throat Cardiovascular: Denies: Chest pain, Palpitations Respiratory: Denies: Dyspnea, Cough, Dyspnea on exertion Gastrointestinal: Reports: Nausea, Vomiting. Denies: Abdominal pain, Diarrhea, Melena, Hematochezia Genitourinary: Denies: Dysuria, Hematuria, Frequency Musculoskeletal: Denies: Back pain, Extremity Pain Skin: Denies: Rash, Wounds Neurological: Denies: Headache, Weakness, Numbness Physical Exam Vital Signs/Narrative: Vital Signs Temp Pulse Resp BP Pulse Ox 11/30/19 13:21 97.8 F 79 15 146/79 H 94 Inital Vital Signs reviewed: Yes General: Well nourished, Well developed, No Acute Distress Head: Normocephalic, Atraumatic Eyes: Perrl, EOMI ENT: Moist mucous membranes, No rhinorrhea Neck: Supple, Nontender Cardiovascular: Regular rate, Regular rhythm, No murmurs Respiratory: No distress, CTA bilaterally, Chest nontender Abdomen: Soft, Nontender, Nondistended, Normal bowel sounds Back: Nontender, Normal Inspection Extremities: Nontender, No edema Skin: Normal color, No rash Neurological: Alert, Oriented x3, Cranial nerves II-XII grossly intact, Normal Strength, Normal Sensation Psychological: Normal affect, Normal Mood Diagnostic/Tx/Re-eval Laboratory Last Values WBC 10.7 K/mm3 (4.4-11.0) 11/30/19 14:00 RBC 4.00 M/mm3 (4.2-5.4) L 11/30/19 14:00 Hgb 11.0 g/dL (12.0-15.0) L 11/30/19 14:00 Hct 34.5 % (37-47) L 11/30/19 14:00 MCV 86.3 fL (81-99) 11/30/19 14:00 MCH 27.5 pg (27.0-32.0) 11/30/19 14:00 MCHC 31.9 g/dL (32-36) L 11/30/19 14:00 RDW Std Deviation 41.4 fl (35.1-43.9) 11/30/19 14:00 RDW Coeff of Wade 13.3 % (11.6-14.6) 11/30/19 14:00 Plt Count 321 K/mm3 (150-450) 11/30/19 14:00 MPV 10.2 fl (6.2-12.0) 11/30/19 14:00 Immature Gran % (Auto) 0.300 % (0.0-0.9) 11/30/19 14:00 Neut % (Auto) 65.6 % (47-70) 11/30/19 14:00 Lymph % (Auto) 25.8 % (19-41) 11/30/19 14:00 [place] % (Auto) 6.4 % (0-10) 11/30/19 14:00 Eos % (Auto) 1.5 % (0-5) 11/30/19 14:00 Baso % (Auto) 0.4 % (0-1) 11/30/19 14:00 Absolute Neuts (auto) 7.0 X10^3/uL (2.0-7.7) 11/30/19 14:00 Absolute Lymphs (auto) 2.77 X10^3/uL (0.83-4.51) 11/30/19 14:00 Nucleated RBC % 0 % (0-5) 11/30/19 14:00 Sodium 135 mmol/L (136-145) L 11/30/19 14:00 Potassium 4.3 mmol/L (3.5-5.1) 11/30/19 14:00 Chloride 100 mmol/L (98-107) 11/30/19 14:00 Carbon Dioxide 31.0 mmol/L (21.0-32.0) 11/30/19 14:00 Anion Gap 4 (5-15) L 11/30/19 14:00 BUN 37 mg/dL (7-18) H 11/30/19 14:00 Creatinine 2.32 mg/dL (0.55-1.02) H 11/30/19 14:00 Estim Creat Clear Calc 16.54 ml/min 11/30/19 14:00 Est GFR (MDRD) Af Amer 27 mL/min (>60) L 11/30/19 14:00 Est GFR (MDRD) Non-Af 22 mL/min (>60) L 11/30/19 14:00 BUN/Creatinine Ratio 15.9 RATIO (10-20) 11/30/19 14:00 Glucose 312 mg/dL (74-106) H 11/30/19 14:00 Calcium 9.3 mg/dL (8.5-10.1) 11/30/19 14:00 Total Bilirubin 0.40 mg/dL (0.20-1.00) 11/30/19 14:00 AST 31 U/L (15-37) 11/30/19 14:00 ALT 26 U/L (13-56) 11/30/19 14:00 Alkaline Phosphatase 137 U/L (45-117) H 11/30/19 14:00 Total Protein 8.1 g/dL (6.4-8.2) 11/30/19 14:00 Albumin 3.5 g/dL (3.2-5.0) 11/30/19 14:00 Globulin 4.6 g/dL (2.2-4.2) H 11/30/19 14:00 Albumin/Globulin Ratio 0.8 RATIO (0.9-2.4) L 11/30/19 14:00 Lipase 37 U/L (73-393) L 11/30/19 14:00 Clinical Impression(s) from Imaging Studies Abdomen/Pelvis CT 11/30/19 14:53 IMPRESSION: 4 mm nonobstructing left renal stone. Electronically Signed: Reji Nowak MD at 15:38 EDT Tel , Service support , - Medical Decision Making IV established and the patient received Zofran IV fluids. Basic labs are obtained are essentially negative. She has a history of chronic kidney disease creatinine appears in her baseline range. CT of the pelvis was obtained which was negative for acute. At this point patient will be discharged home I can write for some Zofran. She is not had any vomiting since she has been here. I suspect more of a viral illness. Follow-up primary care return if worsening ED Disposition - Plan for ED Patient: Disposition: Home or Assisted Living Diagnosis: Vomiting Instructions: ED Nausea Vomiting Adult Prescriptions: Ondansetron [Zofran Odt] 4 mg PO Q8H PRN PRN #10 tab PRN Reason: Nausea Transmission Status: Pending to [facility] Referrals: Shawn Almeida MD [Primary Care Provider] - 3-5 Days
[2019-11-30] MEDS: Ondansetron 4 MG/2 ML Vial IV (14:04)
[2019-11-30 14:20] LABS: Absolute Lymphocyte Count 2.77 X10^3/uL (0.83-4.51); Basophil# 0.04 X10^3/uL; Basophil% 0.4 % (0-1); Eosinophil# 0.16 X10^3/uL; Eosinophils% 1.5 % (0-5); Hematocrit 34.5 % (37-47); Lymphocyte # 2.77 X10^3/ul (4.0); Lymphocyte % 25.8 % (19-41); Mean Corp Hgb Conc 31.9 g/dL (32-36); Mean Corpuscular Hgb 27.5 pg (27.0-32.0); Mean Corpuscular Volume 86.3 fL (81-99); Mean Platelet Vol. 10.2 fl (6.2-12.0); Monocyte# 0.69 X10^3/uL; Monocyte% 6.4 % (0-10); NRBC Flagged by Analyzer 0 % (0-5); Neutrophil # 7.03 X10^3/uL (2.7-7.7); Neutrophil % 65.6 % (47-70); Platelet Count 321 K/mm3 (150-450); RBC Distribution Width CV 13.3 % (11.6-14.6); RBC Distribution Width SD 41.4 fl (35.1-43.9); White Blood Count 10.7 K/mm3 (4.4-11.0)
[2019-11-30 14:44] LABS: ALB/GLOB Ratio 0.8 RATIO (0.9-2.4); AST(SGOT) 31 U/L (15-37); Alanine Aminotransfer ALT/SGPT 26 U/L (13-56); Albumin, Serum 3.5 g/dL (3.2-5.0); Alkaline Phosphatase 137 U/L (45-117); Anion Gap 4 (5-15); BUN 37 mg/dL (7-18); BUN/Creat Ratio 15.9 RATIO (10-20); Calcium,Total 9.3 mg/dL (8.5-10.1); Chloride 100 mmol/L (98-107); Creatinine, Serum 2.32 mg/dL (0.55-1.02); EST Glomerular Filtration Rate 22 mL/min (>60); Est Glom Filt Rate - Afr Amer 27 mL/min (>60); Estimated Creatinine Clearance 16.54 ml/min; Globulin 4.6 g/dL (2.2-4.2); Glucose 312 mg/dL (74-106); Lipase 37 U/L (73-393); Potassium 4.3 mmol/L (3.5-5.1); Protein, Total 8.1 g/dL (6.4-8.2); Sodium Level 135 mmol/L (136-145)
--- NOTE | 2019-11-30 14:53 | CT_ITS ---
STUDY: CT ABDOMEN AND PELVIS WITHOUT CONTRAST REASON FOR EXAM: Female, 74 years old. N/V X 6 DAYS. Hx of HTN, HLD, diabetes, GERD and pyelonephritis. Prior jamison and hysterectomy RADIATION DOSAGE (If Supplied By Facility): CTDIvol = ( 7.28 ) mGy, DLP = ( 361.81 ) mGycm TECHNIQUE: Transaxial images were obtained from the dome of the diaphragm to the symphysis pubis without oral contrast, and without intravenous contrast. Sagittal and coronal images were reconstructed. Individualized dose optimization techniques were used for this CT. COMPARISON: 06/05/2018 FINDINGS: The visualized lung bases are unremarkable. The visualized portions of the heart are within normal limits. Normal liver. There are surgical clips in the gallbladder fossa consistent with a prior cholecystectomy. Normal spleen. Normal pancreas. Normal bilateral adrenal glands. Normal right kidney. 4 mm nonobstructing stone lower pole the left kidney. No hydronephrosis, ureteral stone, or ureteral dilatation. There is a small hiatal hernia. Normal small intestine. Normal colon. The appendix is visualized and appears normal. Normal abdominal aorta. Normal inferior vena cava. Normal retroperitoneum. Normal urinary bladder. There is a small umbilical hernia containing fat. There are diffuse degenerative changes of the visualized lumbar spine. CT/Abdomen/Pelvis without Cont IMPRESSION: 4 mm nonobstructing left renal stone. Electronically Signed: Reji Nowak MD at 15:38 EDT Tel , Service support ,
[2019-11-30 16:00] VITALS: PULSE 79; O2SAT 96
--- NOTE | 2019-11-30 16:00 | ED.RN ---
pt was unable to void when she attempted. aware of not getting sample. ok to dc.
== END 2019-11-30 16:01 | disposition home or self-care (01) ==
PROVIDERS: Emergency Provider Emergency Medicine; PCP Family Medicine
DX: R11.2 Nausea with vomiting, unspecified (principal)
CPT/HCPCS: 74176; 80053; 83690; 85025; 96374; 99283; A4216; J2405

== ENCOUNTER 2020-10-23 13:33 | Emergency (ER) | payer MEDICAID, SELFPAY ==
[2020-10-23 13:33] VITALS: BP 131/99; PULSE 62; RESP 18; TEMP 35.8; O2SAT 96; BMI 24.0
--- NOTE | 2020-10-23 13:35 | RAD_ITS ---
STUDY: X-RAY - RIGHT FOOT CLINICAL: Unable to move right foot, unable to stand, no specific injury. TECHNIQUE: 3 view(s) of the foot. COMPARISON: None. FINDINGS: There are posterior and plantar calcaneal enthesophytes. Normal talus, calcaneus, and tarsal bones. Normal visualized subtalar, talonavicular, calcaneocuboid, tarsal and tarsometatarsal articulations. Normal metatarsi. There is mild joint space narrowing of the metatarsophalangeal joint of the great toe. Normal tibial and fibular sesamoid bones. Normal interphalangeal joint of the great toe. Normal phalanges of the great toe. Normal second through fifth metatarsophalangeal joints. Normal interphalangeal joints and phalanges of the lesser toes. The soft tissue structures are unremarkable. RAD/Foot min 3 Views IMPRESSION: Mild arthrosis of the first metatarsophalangeal joint. Calcaneal enthesopathy. Electronically Signed: Kervin Arias MD at 14:37 EDT Tel , Service support ,
--- NOTE | 2020-10-23 16:41 | ED.VIS.LOWEX ---
HPI History of Present Illness HPI Narrative: Patient presents with some right foot pain that began today. Patient states she woke up today and was unable to move my right foot. Patient states it is localized to the right foot and ankle area. Patient denies any paresthesias. Patient denies any trauma or injury. Patient states her pain is dull. Patient states nothing makes it better nothing makes it worse. Chief Complaint: Lower Extremity Injury Informant: patient Onset/Context/Timing Onset: Today Context: Sudden Onset Timing: Continuous Location: Right foot Worsened by: Nothing Relieved by: Nothing Associated Symptoms Associated Symptoms: Positive for Weakness PFSH PFS Medical History Diabetes Hypertension Home Medications citalopram 20 mg PO DAILY 07/10/14 [History Last Taken 08/04/19] amlodipine 10 mg PO DAILY 06/05/18 [History Last Taken 08/04/19] atorvastatin 40 mg PO DAILY 06/05/18 [History Last Taken 08/04/19] docusate sodium [DOK] 100 mg PO DAILY #20 capsule 06/05/18 [Rx Last Taken 08/04/19] insulin aspart U-100 20 units SUBCUT TIDAC 08/04/19 [History Last Taken 08/04/19] insulin degludec 72 unit SQ DAILY 08/04/19 [History Last Taken 08/04/19] multivitamin 1 ea PO DAILY 08/04/19 [History Last Taken 08/04/19] oxybutynin chloride 5 mg PO DAILY 08/04/19 [History Last Taken 08/04/19] pregabalin 50 mg PO TID 08/04/19 [History Last Taken 08/04/19] omeprazole magnesium 20 mg PO BID 11/30/19 [History Last Taken Unknown] ondansetron 4 mg PO Q8H PRN PRN 11/30/19 [History Last Taken Unknown] ondansetron 4 mg PO Q8H PRN PRN #10 tab 11/30/19 [Rx Last Taken Unknown] Allergy/AdvReac Type Severity Reaction Status Date / Time blue dye Allergy PASS OUT Verified 10/23/20 13:33 no surgical history Social History Smoking Status: Never smoker ROS ROS ED Constitutional Constitutional ED: Denies chills or fever(s) Eyes Eyes: Denies blurry vision or change in vision ENT ENT ED: Denies rhinorrhea or sore throat Cardiovascular Cardiovascular: Denies chest pain or palpitations Respiratory/Chest Respiratory/Chest: Denies cough or dyspnea Gastrointestinal Gastrointestinal: Denies nausea or vomiting Genitourinary Genitourinary ED: Denies dysuria or hematuria Musculoskeletal Musculoskeletal: Denies back pain or neck pain Integumentary Denies abscess or rash Neurologic Neurologic: Denies headache(s) or weakness Allergic/Immunologic Allergic/Immunologic ED: Denies mouth swelling or urticaria EXAM Physical Exam Const Vital Signs: 10/23/20 13:33 Temperature 96.4 F L Temperature Source Temporal Pulse Rate 62 Respiratory Rate 18 Blood Pressure 131/99 H Blood Pressure Mean 109 Pulse Ox 96 Oxygen Delivery Method Room Air Positive well nourished and well developed General Appearance ED: well developed HEENT Reports moist mucous membranes Extremity Extremity Narrative: There is some mild tenderness over the right foot. There is some mild edema. There is no deformity. Range of motion was limited in all motions of the right foot and ankle secondary to pain. Patient was able to dorsiflex and plantarflex her toes and ankle even though her range of motion was limited. There is no tenderness over the proximal fibula. Neuro oriented x3, CN's II-XII intact bilaterally, moves all extremities and no sensory deficits noted Sensorium / Orientation: alert Psych mental status grossly normal MDM MDM MDM Narrative Medical decision making narrative: X-rays of the right foot were obtained. There are [3] views. On my interpretation, there is no acute fracture. There is no dislocation. There is no soft tissue swelling. Radiologist also interpreted the x-rays and agrees. Patient was instructed to ice and elevate the right foot. Patient was given a walking boot. Patient was ambulated prior to discharge. Patient was able to ambulate with a walker. Patient was feeling like she needed help at home. workers compensation paralegal was contacted. She was able to set the patient up with home health. Patient was instructed to take Tylenol or ibuprofen as needed for pain. Patient was instructed to follow-up with her primary care physician in 3 to 5 days. Patient understood and was agreeable with the plan. All questions were answered. Radiography Diagnostic Testing: Radiology Impression Foot X-Ray 10/23/20 13:35 IMPRESSION: Mild arthrosis of the first metatarsophalangeal joint. Calcaneal enthesopathy. Electronically Signed: Kervin Arias MD at 14:37 EDT Tel , Service support , Discharge Plan Triage Chief Complaint: Lower Extremity Injury ED Provider: Clay Em Dx/Rx/DC Orders Clinical Impression: Right foot sprain Instructions: ED Foot Sprain Prescriptions: No Action citalopram 20 MG tablet 20 mg PO DAILY RF: 0 atorvastatin 40 MG tablet 40 mg PO DAILY RF: 0 amlodipine 10 MG tablet 10 mg PO DAILY RF: 0 docusate sodium [DOK] 100 MG capsule 100 mg PO DAILY Qty: 20 RF: 0 pregabalin 50 MG capsule 50 mg PO TID RF: 0 oxybutynin chloride 5 MG tablet extended release 24hr 5 mg PO DAILY RF: 0 multivitamin 1 EACH tablet 1 ea PO DAILY RF: 0 insulin aspart U-100 100 UNITS/ML insulin pen 20 units subcut TIDAC RF: 0 insulin degludec 100 UNIT/ML insulin pen 72 unit SQ DAILY RF: 0 ondansetron 4 MG tablet 4 mg PO Q8H PRN PRN (Reason: Nausea) RF: 0 omeprazole magnesium 20 MG tablet,delayed release (DR/EC) 20 mg PO BID RF: 0 ondansetron 4 MG tablet 4 mg PO Q8H PRN PRN (Reason: Nausea) Qty: 10 RF: 0 Primary Care Provider: Shawn Almeida Referrals: Shawn Almeida MD [Primary Care Provider] - 3-5 Days Disposition Disposition: Home, Self Care
--- NOTE | 2020-10-23 17:02 | ED.RN ---
notified of pt's difficulty ambulation with and without boot. Recommends SW referral, will discuss with ED SW.
--- NOTE | 2020-10-23 17:50 | CM.ED ---
SOCIAL WORK Referral Source: Dr. Em Reason for Consult: Resources-Home Health Met with patient to discuss discharge planning. Patient states lives home in a 1 story apartment. Patient states uses a walker for assistance with ambulation. Patient states also has a wheelchair and hospital bed in the home. Patient feels safe returning home and is open to referral for home health. Patient has Medicaid and would not select a provider. Patient requesting one that my insurance will cover. This worker to follow up with home health care referral in the morning. Patient reports PCP is Dr. Almeida. Dr. Em recommending home health retirement and physical therapy. Plan: Home with referral to home health Vikas Levine MSW, MOHS SURGEON
[2020-10-23 18:30] VITALS: BP 128/82; PULSE 76; RESP 16
--- NOTE | 2020-10-24 14:54 | CM.ED ---
Addendum entered by Amanda Levine 10/24/20 15:25: Received call back from Brandi with [facility] that states able to take referral and is in network with patient's insurance. Referral faxed at this time. Original Note: SOCIAL WORK Attempting to find home health for patient. Multiple agencies do not take patient's insurance. Messages left with [facility] and [facility]. Vikas Levine, CONSUMER INSIGHT MANAGER, STRIPE MARKER
== END 2020-10-23 18:31 | disposition home or self-care (01) ==
PROVIDERS: Emergency Provider Emergency Medicine; PCP Family Medicine
DX: S93.601A Unspecified sprain of right foot, initial encounter (principal); X58.XXXA Exposure to other specified factors, initial encounter
CPT/HCPCS: 73630; 99282

== ENCOUNTER 2020-10-31 11:02 | Emergency (ER) | payer MEDICAID, SELFPAY ==
[2020-10-31] VITALS (12 sets, daily range): BP systolic 125–176; BP diastolic 38–82; PULSE 70–87; RESP 18; TEMP 36.7–38.1; O2SAT 90–98; BMI 27.5
--- NOTE | 2020-10-31 11:19 | CT_ITS ---
STUDY: CT ABDOMEN AND PELVIS WITHOUT CONTRAST REASON FOR EXAM: Female, 75 years old. Kidney Stone R flank pain RADIATION DOSAGE (If Supplied By Facility): CTDIvol = ( 12.53 ) mGy, DLP = ( 604.57 ) mGycm TECHNIQUE: Transaxial images were obtained from the dome of the diaphragm to the symphysis pubis without oral contrast, and without intravenous contrast. Sagittal and coronal images were reconstructed. Individualized dose optimization techniques were used for this CT. COMPARISON: Comparison is made with prior study dated 11/30/2019. FINDINGS: Focal infiltrate in the posterior medial segment of the right lower lobe. Coronary artery calcification. Normal liver. There are surgical clips in the gallbladder fossa consistent with a prior cholecystectomy. Normal spleen. Normal pancreas. Normal bilateral adrenal glands. Mild right hydronephrosis. Mildly dilated right ureter due to a 2 mm calculus at the right ureterovesical junction. There is engorgement of the right kidney with perinephric stranding. 4 mm nonobstructive calculus in the lower pole calyx of the left kidney. There is a small hiatal hernia. Normal small intestine. Normal colon. The appendix is visualized and appears normal. There is diffuse atherosclerotic calcification of the abdominal aorta and its major visceral branches, without a demonstrated aneurysm. Normal inferior vena cava. Normal retroperitoneum. Normal urinary bladder. There is absence of the uterus consistent with a prior hysterectomy. There is a small umbilical hernia containing fat. There are diffuse degenerative changes of the visualized lumbar spine. CT/Abdomen/Pelvis without Cont IMPRESSION: There is a 2 mm pancreas at the right ureterovesical junction causing a mild degree of right hydronephrosis and hydroureter. Right perinephric stranding. Small calculus in the lower pole calyx of the left kidney. Focal infiltrate in the posterior medial segment of the right lower lobe. Electronically Signed: Jose David Dao MD at 12:06 EDT , Service support ,
--- NOTE | 2020-10-31 11:22 | ED.VIS.GI ---
HPI HPI - GI History of Present Illness Chief Complaint: Abd Pain Informant: patient and EMS Abdominal Pain/Flank Pain Onset: Today (Around 3-4 hours prior to arrival) Context: Sudden Onset Timing: Continuous and Waxes and wanes Quality: Aching Location: Right Flank Current Severity: Moderate Maximum Severity: Severe Worsened by: Nothing Relieved by: Nothing Nausea/Vomiting/Emesis GI Symptom: Positive for Nausea and Vomiting Onset: Hours (3) Quality: Positive for Nonbilious; Negative for Blood streaks Episodes: 20 Diarrhea/Melena/Hematochezia GI Symptom: Negative for Diarrhea, Melena and Hematochezia Associated Symptoms Associated Symptoms: Negative for Dysuria, Frequency and Hematuria Narrative Narrative: Patient states she had sudden severe right mid lateral abdominal pain started this morning along with lots of nonbilious vomiting. No problems urinating. She felt fine prior to this with no recent illnesses. She arrives here with a low-grade fever. She does not remember ever having kidney stones in the past. She states she had gallstones but had my gallbladder taken out along with my uterus. That apparently was remote. She is a relatively poor historian. [facility] Medical History (Updated 10/31/20 @ 14:[address] Darryl Swanson MD) Depression Diabetes High cholesterol Hypertension Uncontrolled type 2 diabetes mellitus Home Medications citalopram 20 mg PO DAILY 07/10/14 [History Last Taken 08/04/19] amlodipine 10 mg PO DAILY 06/05/18 [History Last Taken 08/04/19] atorvastatin 40 mg PO DAILY 06/05/18 [History Last Taken 08/04/19] docusate sodium [DOK] 100 mg PO DAILY #20 capsule 06/05/18 [Rx Last Taken 08/04/19] insulin aspart U-100 20 units SUBCUT TIDAC 08/04/19 [History Last Taken 08/04/19] insulin degludec 72 unit SQ DAILY 08/04/19 [History Last Taken 08/04/19] multivitamin 1 ea PO DAILY 08/04/19 [History Last Taken 08/04/19] oxybutynin chloride 5 mg PO DAILY 08/04/19 [History Last Taken 08/04/19] pregabalin 50 mg PO TID 08/04/19 [History Last Taken 08/04/19] omeprazole magnesium 20 mg PO BID 11/30/19 [History Last Taken Unknown] ondansetron 4 mg PO Q8H PRN PRN 11/30/19 [History Last Taken Unknown] ondansetron 4 mg PO Q8H PRN PRN #10 tab 11/30/19 [Rx Last Taken Unknown] cephalexin 500 mg PO Q6 #40 capsule 10/31/20 [Rx Last Taken Unknown] oxycodone-acetaminophen 1 tab PO Q6H PRN PRN 3 Days #12 tablet 10/31/20 [Rx Last Taken Unknown] promethazine 25 mg PO Q6H PRN PRN #10 tablet 10/31/20 [Rx Last Taken Unknown] Allergy/AdvReac Type Severity Reaction Status Date / Time blue dye Allergy PASS OUT Verified 10/31/20 11:03 Surgical History (Updated 10/31/20 @ 11:[address] Darryl Swanson MD) H/O: hysterectomy History of cholecystectomy Social History Smoking Status: Never smoker ROS ROS ED Constitutional Constitutional ED: Reports malaise; Denies chills or fever(s) Eyes Eyes: Denies change in vision or diplopia ENT ENT ED: Denies rhinorrhea or sore throat Cardiovascular Cardiovascular: Denies chest pain or palpitations Respiratory/Chest Respiratory/Chest: Denies cough or dyspnea Gastrointestinal Gastrointestinal: Reports abdominal pain, nausea and vomiting; Denies diarrhea or melena Genitourinary Genitourinary ED: Denies dysuria or hematuria Musculoskeletal Musculoskeletal: Denies back pain or neck pain Integumentary Denies abscess or rash Neurologic Neurologic: Denies headache(s), paresthesias or weakness Psychiatric Psychiatric: Denies anxiety or suicidal thoughts EXAM Physical Exam Const Vital Signs: 10/31/20 11:03 10/31/20 11:06 10/31/20 11:40 Temperature 100.6 F H 100.6 F H 100.6 F H Temperature Source Oral Oral Oral Pulse Rate 87 87 Respiratory Rate 18 18 Blood Pressure 176/50 H 176/50 H Blood Pressure Mean 92 92 Pulse Ox 95 95 Oxygen Delivery Method Room Air Room Air Oxygen Flow Rate (L/min) 10/31/20 12:13 10/31/20 12:14 10/31/20 12:20 Temperature 100.2 F H 99.2 F H Temperature Source Oral Oral Pulse Rate 76 Respiratory Rate 18 Blood Pressure 164/38 H Blood Pressure Mean 80 Pulse Ox 90 96 Oxygen Delivery Method Room Air Nasal Cannula Oxygen Flow Rate (L/min) 2 10/31/20 13:00 10/31/20 13:20 10/31/20 14:00 Temperature 98.6 F 98.6 F 98.7 F Temperature Source Oral Oral Oral Pulse Rate 72 70 Respiratory Rate 18 18 Blood Pressure 166/48 H 127/70 H Blood Pressure Mean 87 89 Pulse Ox 95 94 Oxygen Delivery Method Nasal Cannula Nasal Cannula Oxygen Flow Rate (L/min) 2 2 10/31/20 14:03 Temperature Temperature Source Pulse Rate 70 Respiratory Rate 18 Blood Pressure 127/70 H Blood Pressure Mean 89 Pulse Ox 94 Oxygen Delivery Method Nasal Cannula Oxygen Flow Rate (L/min) 2 Positive well nourished and well developed General Appearance ED: well developed and NAD HEENT Reports moist mucous membranes HEENT Narrative: Edentulous normocephalic and atraumatic Eyes PERRL and EOMs intact bilaterally Neck full ROM and supple Resp normal respiratory effort and clear to auscultation bilaterally Cardio regular rate, regular rhythm and no murmurs GI non-distended GI Narrative: Very tender throughout the right side of the abdomen. No rebound tenderness. Nontender throughout the left and epigastrium. No palpable masses. Auscultation: normoactive bowel sounds Palpation: soft; Negative for rebound tenderness present Back/Spine no CVA tenderness General Back: other FROM Extremity normal to inspection General Extremety ED: Negative for edema, pulses abnormal or tenderness General Extremity: Negative for edema or pulses abnormal Neuro oriented x3, CN's II-XII intact bilaterally and no sensory deficits noted Sensorium / Orientation: awake and alert Motor Exam: strength 5/5 throughout Skin no rashes or lesions noted and no wounds MDM MDM MDM Narrative Medical decision making narrative: CT confirms a 2 mm UVJ stone, there is also a nonobstructing 4 mm stone in the left kidney, but there is some hydronephrosis on the right with stranding. This likely is the source of her symptoms, she is feeling a little better after Zofran and morphine. Her labs look good, lactate is normal, awaiting urinalysis to rule in or out infection. UA returned suspicious for infection, urine culture was sent in addition to the blood cultures and she was given a gram of Rocephin. After another dose of morphine, she is improved more but still has some discomfort. I offered admission. Patient refuses states she has a dog at home and even if she is really bad she will not want to be admitted. We discussed risks and benefits, certainly understand this and I do not want her to get worse. Prescribed her some analgesics and antibiotics, as well as promethazine and discussed reasons to return, all of this conversation was done with her son at the bedside and he is in agreement with the plan as is she. Luckily the stone is only 2 mm, expectant management should result in resolution of her symptoms, hopefully sooner than later. Lab Data Attestation: I reviewed the patient's lab results. Labs: Laboratory Results - last 24 hr 10/31/20 10/31/20 10/31/20 11:20 11:20 11:20 WBC 7.3 RBC 3.64 L Hgb 9.7 L Hct 31.3 L MCV 86.0 MCH 26.6 L MCHC 31.0 L RDW Std Deviation 47.5 H RDW Coeff of Wade 15.1 H Plt Count 308 MPV 10.0 Immature Gran % (Auto) 0.700 Neut % (Auto) 93.8 H Lymph % (Auto) 3.7 L [place] % (Auto) 0.8 Eos % (Auto) 0.7 Baso % (Auto) 0.3 Absolute Neuts (auto) 6.9 Absolute Lymphs (auto) 0.27 L Nucleated RBC % 0 Differential Comment COMMENT Sodium 144 Potassium 3.9 Chloride 113 H Carbon Dioxide 18.0 L Anion Gap 13 BUN 56 H Creatinine 3.33 H Estim Creat Clear Calc 12.45 Est GFR (MDRD) Af Amer 17 L Est GFR (MDRD) Non-Af 14 L BUN/Creatinine Ratio 16.8 Glucose 96 Lactic Acid 1.6 Calcium 8.5 Total Bilirubin 0.30 AST 15 ALT 19 Alkaline Phosphatase 101 Total Protein 8.1 Albumin 3.4 Globulin 4.7 H Albumin/Globulin Ratio 0.7 L Urine Color Urine Clarity Urine pH Ur Specific [place] Urine Protein Urine Glucose (UA) Urine Ketones Urine Occult Blood Urine Nitrite Urine Bilirubin Urine Urobilinogen Ur Leukocyte Esterase Urine RBC Urine WBC Ur Squamous Epith Cells Urine Bacteria Urine Mucus 10/31/20 13:36 WBC RBC Hgb Hct MCV MCH MCHC RDW Std Deviation RDW Coeff of Wade Plt Count MPV Immature Gran % (Auto) Neut % (Auto) Lymph % (Auto) [place] % (Auto) Eos % (Auto) Baso % (Auto) Absolute Neuts (auto) Absolute Lymphs (auto) Nucleated RBC % Differential Comment Sodium Potassium Chloride Carbon Dioxide Anion Gap BUN Creatinine Estim Creat Clear Calc Est GFR (MDRD) Af Amer Est GFR (MDRD) Non-Af BUN/Creatinine Ratio Glucose Lactic Acid Calcium Total Bilirubin AST ALT Alkaline Phosphatase Total Protein Albumin Globulin Albumin/Globulin Ratio Urine Color Yellow Urine Clarity Clear Urine pH 6.0 Ur Specific [place] 1.010 Urine Protein 100 H Urine Glucose (UA) Normal Urine Ketones Negative Urine Occult Blood 10 H Urine Nitrite Negative Urine Bilirubin Negative Urine Urobilinogen Normal Ur Leukocyte Esterase 500 H Urine RBC 0-5 SEEN Urine WBC 25-50 SEEN Ur Squamous Epith Cells 0-5 SEEN Urine Bacteria 2+ Urine Mucus 0 SEEN Radiography Diagnostic Testing: Radiology Impression Abdomen/Pelvis CT 10/31/20 11:19 IMPRESSION: There is a 2 mm pancreas at the right ureterovesical junction causing a mild degree of right hydronephrosis and hydroureter. Right perinephric stranding. Small calculus in the lower pole calyx of the left kidney. Focal infiltrate in the posterior medial segment of the right lower lobe. Electronically Signed: Jose David aDo MD at 12:06 EDT , Service support , Discharge Plan Triage Chief Complaint: Abd Pain ED Provider: Darryl Swanson Dx/Rx/DC Orders Clinical Impression: Ureterolithiasis, Renal colic on right side, Urinary tract infection with fever Instructions: Understanding Urinary Tract ..., ED Kidney Stone w/ Colic Prescriptions: New oxycodone-acetaminophen [oxycodone-acetaminophen] 1 TABLET tablet 1 tab PO Q6H PRN PRN (Reason: Pain) 3 Days Qty: 12 RF: 0 cephalexin [cephalexin] 500 MG capsule 500 mg PO Q6 Qty: 40 RF: 0 promethazine [promethazine] 25 MG tablet 25 mg PO Q6H PRN PRN (Reason: Nausea) Qty: 10 RF: 0 No Action citalopram 20 MG tablet 20 mg PO DAILY RF: 0 atorvastatin 40 MG tablet 40 mg PO DAILY RF: 0 amlodipine 10 MG tablet 10 mg PO DAILY RF: 0 docusate sodium [DOK] 100 MG capsule 100 mg PO DAILY Qty: 20 RF: 0 pregabalin 50 MG capsule 50 mg PO TID RF: 0 oxybutynin chloride 5 MG tablet extended release 24hr 5 mg PO DAILY RF: 0 multivitamin 1 EACH tablet 1 ea PO DAILY RF: 0 insulin aspart U-100 100 UNITS/ML insulin pen 20 units subcut TIDAC RF: 0 insulin degludec 100 UNIT/ML insulin pen 72 unit SQ DAILY RF: 0 ondansetron 4 MG tablet 4 mg PO Q8H PRN PRN (Reason: Nausea) RF: 0 omeprazole magnesium 20 MG tablet,delayed release (DR/EC) 20 mg PO BID RF: 0 ondansetron 4 MG tablet 4 mg PO Q8H PRN PRN (Reason: Nausea) Qty: 10 RF: 0 Primary Care Provider: Shawn Almeida Referrals: Shawn Almeida MD [Primary Care Provider] - 3-5 Days if not improving Disposition Disposition: Home, Self Care
[2020-10-31] MEDS: Ondansetron 4 MG/2 ML Vial IV (11:30)
[2020-10-31] MEDS: 0.9% Normal Saline 1,000 ML 100 ML IV (11:30)
[2020-10-31] MEDS: Morphine 4 MG/ML Syringe IV ×2 (11:31→12:54)
[2020-10-31 11:40] LABS: Absolute Lymphocyte Count 0.27 X10^3/uL (0.83-4.51); Absolute Neutrophil Count 6.9 X10^3/uL (2.0-7.7); Basophil# 0.02 X10^3/uL; Basophil% 0.3 % (0-1); Eosinophil# 0.05 X10^3/uL; Eosinophils% 0.7 % (0-5); Hematocrit 31.3 % (37-47); Hemoglobin 9.7 g/dL (12.0-15.0); Lymphocyte # 0.27 X10^3/ul (0.83-4.51); Lymphocyte % 3.7 % (19-41); Mean Corpuscular Hgb 26.6 pg (27.0-32.0); Monocyte# 0.06 X10^3/uL; Monocyte% 0.8 % (0-10); NRBC Flagged by Analyzer 0 % (0-5); Neutrophil # 6.86 X10^3/uL (2.7-7.7); Neutrophil % 93.8 % (47-70); POSITIVE DIFFERENTIAL YES; Platelet Count 308 K/mm3 (150-450); RBC Distribution Width CV 15.1 % (11.6-14.6); RBC Distribution Width SD 47.5 fl (35.1-43.9); Red Blood Count 3.64 M/mm3 (4.2-5.4); White Blood Count 7.3 K/mm3 (4.4-11.0)
[2020-10-31 11:41] LABS: Differential Indicated SCAN CRITERIA MET
[2020-10-31 11:54] LABS: ALB/GLOB Ratio 0.7 RATIO (0.9-2.4); AST(SGOT) 15 U/L (15-37); Alanine Aminotransfer ALT/SGPT 19 U/L (13-56); Albumin, Serum 3.4 g/dL (3.2-5.0); Alkaline Phosphatase 101 U/L (45-117); Anion Gap 13 (5-15); BUN 56 mg/dL (7-18); BUN/Creat Ratio 16.8 RATIO (10-20); Calcium,Total 8.5 mg/dL (8.5-10.1); Chloride 113 mmol/L (98-107); Creatinine, Serum 3.33 mg/dL (0.55-1.02); EST Glomerular Filtration Rate 14 mL/min (>60); Est Glom Filt Rate - Afr Amer 17 mL/min (>60); Estimated Creatinine Clearance 12.45 ml/min; Globulin 4.7 g/dL (2.2-4.2); Glucose 96 mg/dL (74-106); Potassium 3.9 mmol/L (3.5-5.1); Protein, Total 8.1 g/dL (6.4-8.2); Sodium Level 144 mmol/L (136-145)
[2020-10-31 11:58] LABS: Lactic Acid 1.6 mmol/L (0.4-1.9)
[2020-10-31] MEDS: Acetaminophen 500 MG Tablet 1000 MG PO (11:58)
[2020-10-31 13:44] LABS: Mucous, Urine 0 SEEN /hpf (<or=2+)
[2020-10-31 13:47] LABS: Color, Urine Yellow (Yellow); Glucose, Dipstick Normal (Normal); Ketone-Dipstick Negative (Negative); Leukocyte Esterase-Dipstick 500 /ul (Negative); Nitrite-Dipstick Negative (Negative); Occult Blood-Urine 10 /ul (Negative); Protein-Dipstick 100 mg/dl (Negative); Urine Bilirubin Dipstick Negative (Negative); Urine Clarity Clear (Clear); Urine Urobilinogen Normal (Normal)
[2020-10-31 13:55] LABS: Bacteria 2+ /hpf (None Seen); Red Blood Cells-Urine 0-5 SEEN /hpf (0-5); Squamous Epithelial Cells - UA 0-5 SEEN /hpf (5-10); White Blood Cells 25-50 SEEN /hpf (0-5)
[2020-10-31] MEDS: Ceftriaxone 1 GM/50 ML BAG IV (15:20)
== END 2020-10-31 16:27 | disposition home or self-care (01) ==
PROVIDERS: Emergency Provider Emergency Medicine; PCP Family Medicine
DX: N20.1 Calculus of ureter (principal); N23 Unspecified renal colic; N39.0 Urinary tract infection, site not specified; R50.9 Fever, unspecified
CPT/HCPCS: 36415; 74176; 80053; 81001; 83605; 85025; 87040; 87086; 87088; 87186; 96365; 96375; 96376; 99284; J7030; J7050; A4216; J2405

== ENCOUNTER 2020-11-03 13:38 | Inpatient (IN) | payer MEDICAID, SELFPAY ==
[2020-10-31 11:03] VITALS: BMI 27.5
[2020-11-03] VITALS (11 sets, daily range): BP systolic 138–195; BP diastolic 43–74; PULSE 83–104; RESP 16–20; TEMP 36.3–36.8; O2SAT 90–98; BMI 37.1; BMI 28.2
--- NOTE | 2020-11-03 14:11 | ED.RN ---
EMS spoke to Dr Parikh regarding concerns about pt's ability to care for self and pt's care providers being able to care for her.
--- NOTE | 2020-11-03 14:12 | EKG12_ITS ---
Test Reason : FLANK PAIN Blood Pressure : / mmHG Vent. Rate : 084 BPM Atrial Rate : 084 BPM P-R Int : 170 ms QRS Dur : 132 ms QT Int : 412 ms P-R-T Axes : 083 -45 043 degrees QTc Int : 486 ms Normal sinus rhythm Right bundle branch block Left anterior fascicular block Bifascicular block Abnormal ECG Confirmed by GILBERT ROWELL, BOB ([id number]), news videotape editor GULSHAN TRAYLOR ([id number]) on 11/06/2020 10:06:27 AM Referred By: Confirmed By:BOB HUNT MD
--- NOTE | 2020-11-03 14:12 | CT_ITS ---
STUDY: CT BRAIN WITHOUT CONTRAST REASON FOR EXAM: Female, 75 years old. altered loc RADIATION DOSAGE (If Supplied By Facility): CTDIvol = ( 44.99 ) mGy, DLP = ( 711.75 ) mGycm TECHNIQUE: Transaxial CT imaging of the brain was performed without administration of intravenous contrast material. Individualized dose optimization techniques were used for this CT. COMPARISON: 08/04/2019 FINDINGS: Normal soft tissue structures. Normal calvarium. Normal size ventricles and extra-axial spaces for the patient''s age. Normal white matter tracts of the cerebral hemispheres. Normal basal ganglia and thalami. Normal brainstem. Normal cerebellum. There is no intracranial hemorrhage. There are no findings of an acute ischemic infarction. Normal visualized paranasal sinuses. CT/Brain/Head without Contrast IMPRESSION: Normal unenhanced CT scan of the brain. Electronically Signed: Reji Nowak MD at 15:29 EDT Tel , Service support ,
--- NOTE | 2020-11-03 14:13 | CT_ITS ---
STUDY: CT ABDOMEN AND PELVIS WITHOUT CONTRAST REASON FOR EXAM: Female, 75 years old. kidney stone RADIATION DOSAGE (If Supplied By Facility): CTDIvol = ( 8.75 ) mGy, DLP = ( 587.86 ) mGycm TECHNIQUE: Transaxial images were obtained from the dome of the diaphragm to the symphysis pubis without oral contrast, and without intravenous contrast. Sagittal and coronal images were reconstructed. Individualized dose optimization techniques were used for this CT. COMPARISON: 10/31/2020 FINDINGS: The visualized lung bases are unremarkable. The visualized portions of the heart are within normal limits. Normal liver. There are surgical clips in the gallbladder fossa consistent with a prior cholecystectomy. Normal spleen. Normal pancreas. Normal bilateral adrenal glands. Moderate right hydronephrosis and ureteral dilatation but no obstructing stone. Findings may be secondary to a ureteral stricture. 5 mm nonobstructing stone lower pole the left kidney. No left hydronephrosis, ureteral stone, ureteral dilatation. There is a small hiatal hernia. Normal small intestine. Normal colon. The appendix is visualized and appears normal. There is diffuse atherosclerotic calcification of the abdominal aorta, without a demonstrated aneurysm. Normal inferior vena cava. Normal retroperitoneum. Normal urinary bladder. There is a small umbilical hernia containing fat. There are diffuse degenerative changes of the visualized lumbar spine. CT/Abdomen/Pelvis without Cont IMPRESSION: 1. 5 mm nonobstructing stone lower pole the left kidney which is unchanged. 2. Moderate right hydronephrosis and ureteral dilatation but no obstructing stones suggestive of ureteral stricture. Retrograde Polygram may be useful. Electronically Signed: Reji Nowak MD at 16:14 EDT Tel , Service support ,
--- NOTE | 2020-11-03 14:14 | EX.ED.DYSGE1 ---
HPI History of Present Illness Chief Complaint: Flank Pain Informant: patient and EMS Narrative Narrative: EMS brings 75-year-old female in for altered mental status and hypoglycemia. Patient was seen several days ago was diagnosed with a distal ureteral stone. She reportedly has a friend that comes to her house a couple times a day and changes her adult diaper and gives her her medications. Today a bystander was going by her house and heard her calling for help. They called EMS. EMS noted that she had a blood sugar of 58 and she was confused. Patient can only tell me that she has a kidney infection. She was started on Keflex for UTI at the time of the kidney stone. She cannot tell me the last time she ate or showered. She does not know the day month or year. She states that she mostly uses a wheelchair or walker at home but does not recall the last time she was walking. Any other questions she simply tells me that the only thing she knows is that she has a kidney infection. Urine culture grew out E. coli and was sensitive to Keflex. Both blood cultures appear to be growing gram-negative's. [facility] Medical History Depression Diabetes High cholesterol Hypertension Uncontrolled type 2 diabetes mellitus Home Medications citalopram 20 mg PO DAILY 07/10/14 [History Last Taken 08/04/19] amlodipine 10 mg PO DAILY 06/05/18 [History Last Taken 08/04/19] atorvastatin 40 mg PO DAILY 06/05/18 [History Last Taken 08/04/19] docusate sodium [DOK] 100 mg PO DAILY #20 capsule 06/05/18 [Rx Last Taken 08/04/19] insulin aspart U-100 10 units SUBCUT TIDAC 08/04/19 [History Last Taken 08/04/19] insulin degludec 62 unit SQ DAILY 08/04/19 [History Last Taken 08/04/19] oxybutynin chloride 5 mg PO DAILY 08/04/19 [History Last Taken 08/04/19] pregabalin 50 mg PO TID 08/04/19 [History Last Taken 08/04/19] hydrochlorothiazide 25 mg PO DAILY 11/03/20 [History Last Taken Unknown] lansoprazole 30 mg PO DAILY 11/03/20 [History Last Taken Unknown] Allergy/AdvReac Type Severity Reaction Status Date / Time blue dye Allergy PASS OUT Verified 11/03/20 14:12 Surgical History H/O: hysterectomy History of cholecystectomy Social History (Updated 11/03/20 @ 14:[address] Filiberto Parikh DO) Smoking Status: Never smoker substance use type: does not use ROS ROS ED Review of Systems ROS Unobtainable: due to mental status EXAM Physical Exam Const Vital Signs: 11/03/20 13:39 11/03/20 14:13 11/03/20 16:02 Temperature 97.3 F L Temperature Source Temporal Pulse Rate 104 H 90 Respiratory Rate 16 18 Respiratory Effort Normal Non-Labored Respiratory Pattern Normal Blood Pressure 172/68 H 174/67 H Blood Pressure Mean 102 102 Pulse Ox 90 95 Oxygen Delivery Method Room Air Nasal Cannula Oxygen Flow Rate (L/min) 2 Positive well nourished and well developed General Appearance ED: well developed HEENT Reports normocephalic, head/scalp atraumatic and moist mucous membranes Eyes PERRL and EOMs intact bilaterally Neck no lymphadenopathy, supple and no JVD Resp normal respiratory effort and clear to auscultation bilaterally Cardio regular rate and no murmurs Rate: tachycardic GI normal to inspection, nondistended, normoactive bowel sounds and non-tender Palpation: soft Back/Spine no CVA tenderness and normal ROM Extremity normal to inspection General Extremety ED: Negative for edema General Extremity: Negative for edema Neuro CN's II-XII intact bilaterally Sensorium / Orientation: alert Motor Exam: strength 5/5 throughout Psych Mood & Affect: Negative for depressed or tearful Skin no rashes or lesions noted and no wounds MDM MDM MDM Narrative Medical decision making narrative: My interpretation of the chest x-ray is no acute process. CT brain negative. CT abdomen pelvis demonstrates right-sided hydronephroureter. No obvious stone seen at this time. White count is elevated at 14. Hemoglobin is 8.4. She has chronic anemia. Creatinine substantially off baseline now at 4.48. Her urinalysis demonstrates 10-25 white cells 1+ bacteria 5-10 red cells. Lactic acid is normal. Patient received IV fluids as well as Rocephin. I am concerned about urinary retention so Alexandre catheter was placed. Patient was straight cathed but seems to be having some overflow incontinence in the bed. Her encephalopathy appears to be multifactorial. She is on opiates as well as acute renal issues and bacteremia. Lab Data Attestation: I reviewed the patient's lab results. Labs: Laboratory Results - last 24 hr 11/03/20 11/03/20 11/03/20 14:30 14:30 14:30 WBC 14.0 H RBC 3.19 L Hgb 8.4 L Hct 28.7 L MCV 90.0 MCH 26.3 L MCHC 29.3 L D RDW Std Deviation 56.9 H RDW Coeff of Wade 17.1 H Plt Count 229 MPV 10.4 Immature Gran % (Auto) 1.000 H Neut % (Auto) 84.4 H Lymph % (Auto) 9.4 L [place] % (Auto) 3.1 Eos % (Auto) 1.8 Baso % (Auto) 0.3 Absolute Neuts (auto) 11.8 H Absolute Lymphs (auto) 1.31 Nucleated RBC % 0 PT 15.0 H INR 1.2 APTT 29.9 Sodium 145 Potassium 4.6 Chloride 116 H Carbon Dioxide 19.0 L Anion Gap 10 BUN 75 H Creatinine 4.48 H Estim Creat Clear Calc 10.47 Est GFR (MDRD) Af Amer 12 L Est GFR (MDRD) Non-Af 10 L BUN/Creatinine Ratio 16.7 Glucose 97 Lactic Acid Calcium 8.6 Total Bilirubin 0.30 AST 21 ALT 26 Alkaline Phosphatase 126 H Troponin I High Sens 24.8 Total Protein 8.0 Albumin 2.8 L Globulin 5.2 H Albumin/Globulin Ratio 0.5 L Urine Color Urine Clarity Urine pH Ur Specific [place] Urine Protein Urine Glucose (UA) Urine Ketones Urine Occult Blood Urine Nitrite Urine Bilirubin Urine Urobilinogen Ur Leukocyte Esterase Urine RBC Urine WBC Ur Squamous Epith Cells Urine Bacteria Hyaline Casts Urine Mucus Urine Opiates Screen Urine Methadone Screen Ur Barbiturates Screen Ur Phencyclidine Scrn Ur Amphetamines Screen U Methamphetamin-MDMA U Benzodiazepines Scrn Urine Cocaine Screen U Cannabinoids Screen Ur Drug Screen Comment Ethyl Alcohol 11/03/20 11/03/20 11/03/20 14:30 14:30 15:00 WBC RBC Hgb Hct MCV MCH MCHC RDW Std Deviation RDW Coeff of Wade Plt Count MPV Immature Gran % (Auto) Neut % (Auto) Lymph % (Auto) [place] % (Auto) Eos % (Auto) Baso % (Auto) Absolute Neuts (auto) Absolute Lymphs (auto) Nucleated RBC % PT INR APTT Sodium Potassium Chloride Carbon Dioxide Anion Gap BUN Creatinine Estim Creat Clear Calc Est GFR (MDRD) Af Amer Est GFR (MDRD) Non-Af BUN/Creatinine Ratio Glucose Lactic Acid 0.7 Calcium Total Bilirubin AST ALT Alkaline Phosphatase Troponin I High Sens Total Protein Albumin Globulin Albumin/Globulin Ratio Urine Color Yellow Urine Clarity Clear Urine pH 7.0 Ur Specific [place] 1.010 Urine Protein 100 H Urine Glucose (UA) Normal Urine Ketones Negative Urine Occult Blood 150 H Urine Nitrite Negative Urine Bilirubin Negative Urine Urobilinogen Normal Ur Leukocyte Esterase 500 H Urine RBC 5-10 SEEN Urine WBC 10-25 SEEN Ur Squamous Epith Cells 0-5 SEEN Urine Bacteria 1+ Hyaline Casts 0-5 SEEN Urine Mucus 0 SEEN Urine Opiates Screen Urine Methadone Screen Ur Barbiturates Screen Ur Phencyclidine Scrn Ur Amphetamines Screen U Methamphetamin-MDMA U Benzodiazepines Scrn Urine Cocaine Screen U Cannabinoids Screen Ur Drug Screen Comment Ethyl Alcohol < 3.0 11/03/20 15:00 WBC RBC Hgb Hct MCV MCH MCHC RDW Std Deviation RDW Coeff of Wade Plt Count MPV Immature Gran % (Auto) Neut % (Auto) Lymph % (Auto) [place] % (Auto) Eos % (Auto) Baso % (Auto) Absolute Neuts (auto) Absolute Lymphs (auto) Nucleated RBC % PT INR APTT Sodium Potassium Chloride Carbon Dioxide Anion Gap BUN Creatinine Estim Creat Clear Calc Est GFR (MDRD) Af Amer Est GFR (MDRD) Non-Af BUN/Creatinine Ratio Glucose Lactic Acid Calcium Total Bilirubin AST ALT Alkaline Phosphatase Troponin I High Sens Total Protein Albumin Globulin Albumin/Globulin Ratio Urine Color Urine Clarity Urine pH Ur Specific [place] Urine Protein Urine Glucose (UA) Urine Ketones Urine Occult Blood Urine Nitrite Urine Bilirubin Urine Urobilinogen Ur Leukocyte Esterase Urine RBC Urine WBC Ur Squamous Epith Cells Urine Bacteria Hyaline Casts Urine Mucus Urine Opiates Screen POSITIVE H Urine Methadone Screen NEGATIVE Ur Barbiturates Screen NEGATIVE Ur Phencyclidine Scrn NEGATIVE Ur Amphetamines Screen NEGATIVE U Methamphetamin-MDMA NEGATIVE U Benzodiazepines Scrn NEGATIVE Urine Cocaine Screen NEGATIVE U Cannabinoids Screen NEGATIVE Ur Drug Screen Comment Ethyl Alcohol Radiography Diagnostic Testing: Radiology Impression Brain CT 11/03/20 14:12 IMPRESSION: Normal unenhanced CT scan of the brain. Electronically Signed: Reji Nowak MD at 15:29 EDT Tel , Service support , Abdomen/Pelvis CT 11/03/20 14:13 IMPRESSION: 1. 5 mm nonobstructing stone lower pole the left kidney which is unchanged. 2. Moderate right hydronephrosis and ureteral dilatation but no obstructing stones suggestive of ureteral stricture. Retrograde Polygram may be useful. Electronically Signed: Reji Nowak MD at 16:14 EDT Tel , Service support , Chest X-Ray 11/03/20 15:20 IMPRESSION: Poor inspiration with some bibasilar atelectasis. Electronically Signed: Reji Nowak MD at 15:49 EDT Tel , Service support , EKG Initial EKG: Attestation: I personally reviewed and interpreted this EKG as follows: Comments: EKG demonstrates a normal sinus rhythm with bifascicular block. Ventricular rate of 84 bpm. Discharge Plan Dx/Rx/DC Orders Clinical Impression: Acute renal failure, Bacteremia, Encephalopathy acute, Hypoglycemia, Acute UTI Disposition Disposition: Acute Care [facility]
--- NOTE | 2020-11-03 14:25 | CM.ED ---
SOCIAL WORK Referral Source: EMS Reason for Consult: Discharge Planning Upon arrival, EMS requested to speak with this worker. Reported concerns due to patient's confusion and inability to care for self. EMS stating unsafe for patient to return home as she is unable to walk and care for self. Discussed with Dr. Parikh who anticipates admission. SW to follow up regarding safe discharge planning. Vikas Levine, DROP BOARD WORKER, [employer] TECHNICIAN
[2020-11-03 14:39] LABS: Absolute Lymphocyte Count 1.31 X10^3/uL (0.83-4.51); Absolute Neutrophil Count 11.8 X10^3/uL (2.0-7.7); Basophil# 0.04 X10^3/uL; Basophil% 0.3 % (0-1); Eosinophil# 0.25 X10^3/uL; Eosinophils% 1.8 % (0-5); Hematocrit 28.7 % (37-47); Hemoglobin 8.4 g/dL (12.0-15.0); Lymphocyte # 1.31 X10^3/ul (0.83-4.51); Lymphocyte % 9.4 % (19-41); Mean Corp Hgb Conc 29.3 g/dL (32-36); Mean Corpuscular Hgb 26.3 pg (27.0-32.0); Mean Platelet Vol. 10.4 fl (6.2-12.0); Monocyte# 0.43 X10^3/uL; Monocyte% 3.1 % (0-10); NRBC Flagged by Analyzer 0 % (0-5); Neutrophil # 11.84 X10^3/uL (2.7-7.7); Neutrophil % 84.4 % (47-70); Platelet Count 229 K/mm3 (150-450); RBC Distribution Width CV 17.1 % (11.6-14.6); RBC Distribution Width SD 56.9 fl (35.1-43.9); Red Blood Count 3.19 M/mm3 (4.2-5.4)
[2020-11-03] MEDS: Dextrose 50%-Water 25 GM/50 ML DISP.SYRIN IV (14:40)
[2020-11-03] MEDS: 0.9% Normal Saline 1,000 ML 1000 ML IV (14:40)
[2020-11-03 14:47] LABS: International Normalized Ratio 1.2
[2020-11-03 14:48] LABS: Partial Thromboplast Time 29.9 Seconds (24.1-36.2)
[2020-11-03 14:57] LABS: ALB/GLOB Ratio 0.5 RATIO (0.9-2.4); AST(SGOT) 21 U/L (15-37); Alanine Aminotransfer ALT/SGPT 26 U/L (13-56); Albumin, Serum 2.8 g/dL (3.2-5.0); Alcohol, Blood (Medical)-Serum < 3.0 mg/dL; Alkaline Phosphatase 126 U/L (45-117); Anion Gap 10 (5-15); BUN 75 mg/dL (7-18); BUN/Creat Ratio 16.7 RATIO (10-20); Calcium,Total 8.6 mg/dL (8.5-10.1); Chloride 116 mmol/L (98-107); Creatinine, Serum 4.48 mg/dL (0.55-1.02); EST Glomerular Filtration Rate 10 mL/min (>60); Est Glom Filt Rate - Afr Amer 12 mL/min (>60); Estimated Creatinine Clearance 10.47 ml/min; Globulin 5.2 g/dL (2.2-4.2); Glucose 97 mg/dL (74-106); Potassium 4.6 mmol/L (3.5-5.1); Sodium Level 145 mmol/L (136-145); Troponin-I HS 24.8 pg/mL (3.0-53.7)
[2020-11-03 15:02] LABS: Lactic Acid 0.7 mmol/L (0.4-1.9)
[2020-11-03 15:04] LABS: Mucous, Urine 0 SEEN /hpf (<or=2+)
[2020-11-03 15:07] LABS: Color, Urine Yellow (Yellow); Glucose, Dipstick Normal (Normal); Ketone-Dipstick Negative (Negative); Leukocyte Esterase-Dipstick 500 /ul (Negative); Nitrite-Dipstick Negative (Negative); Occult Blood-Urine 150 /ul (Negative); Protein-Dipstick 100 mg/dl (Negative); Urine Bilirubin Dipstick Negative (Negative); Urine Clarity Clear (Clear); Urine Urobilinogen Normal (Normal)
[2020-11-03 15:13] LABS: Bacteria 1+ /hpf (None Seen); Red Blood Cells-Urine 5-10 SEEN /hpf (0-5); Squamous Epithelial Cells - UA 0-5 SEEN /hpf (5-10); White Blood Cells 10-25 SEEN /hpf (0-5)
[2020-11-03 15:14] LABS: Hyaline Cast 0-5 SEEN /lpf (0-5)
--- NOTE | 2020-11-03 15:20 | RAD_ITS ---
STUDY: X-RAY CHEST REASON FOR EXAM: Female, 75 years old. altered loc TECHNIQUE: Single AP portable view of the chest. COMPARISON: 08/04/2019 FINDINGS: Poor inspiration with some bibasilar atelectasis. There is no demonstrated pleural abnormality. There is moderate cardiac enlargement. Normal mediastinum and roya. Normal visualized pulmonary arteries. Normal visualized aortic arch and descending thoracic aorta. Normal visualized thoracic spine. Normal visualized ribs, clavicles, and shoulders. There is no demonstrated abnormality of the visualized soft tissue structures of the upper abdomen. RAD/Chest 1 View (Portable) IMPRESSION: Poor inspiration with some bibasilar atelectasis. Electronically Signed: Reji Nowak MD at 15:49 EDT Tel , Service support ,
[2020-11-03 15:24] LABS: Amphetamine Urine VISTA NEGATIVE (<1000 ng/mL); Barbiturate Urine VISTA NEGATIVE (< 200 ng/mL); Benzodiazepine Urine VISTA NEGATIVE (< 200 ng/mL); Cocaine Urine VISTA NEGATIVE (< 300 ng/mL); Ecstacy Urine VISTA NEGATIVE (< 500 ng/mL); Methadone Urine VISTA NEGATIVE (< 300 ng/mL); PCP Urine VISTA NEGATIVE (< 25 ng/mL); THC Urine VISTA NEGATIVE (< 50 ng/mL); Vista UDS pH Range 7
--- NOTE | 2020-11-03 16:34 | NURSING ---
NO OLD EKGS
[2020-11-03] MEDS: Ceftriaxone 1 GM/50 ML BAG IV (16:40)
--- NOTE | 2020-11-03 16:50 | NURSING ---
PCU KOTSONIS ENCEPHALOPATHY, ACUTE RENAL FAILURE, UTI, BACTEREMIA
[2020-11-03] MEDS: 0.9% Normal Saline 1,000 ML 150 ML IV (16:53)
--- NOTE | 2020-11-03 16:57 | PCM.HP.STD ---
Documented by User: MARK Lange 11/03/20 17:26 HPI - General General Date of Admission: 11/03/20 Date of Service: 11/03/20 Chief Complaint: Altered mental status HPI Narrative DOMINICK NEELY, is a 75 F who presents with confusion. Patient was at home when a bystander heard her yelling for help and called EMS. Upon arrival EMS noted the patient had a blood sugar of 58 and was markedly confused. Patient continues to be confused upon evaluation. Able to tell me that she has diabetes and has a kidney infection but is unable to answer any other questions about her medical or surgical history. Patient continues to repeat that she is tired and she has a kidney infection. [facility] Medical History (Updated 11/03/20 @ 22:[address] Ashlyn Kaminski MD) Chronic kidney disease, stage 3b Depression Diabetes High cholesterol Hydronephrosis Hypertension Uncontrolled type 2 diabetes mellitus Home Medications citalopram 20 mg PO DAILY 07/10/14 [History Last Taken 08/04/19] amlodipine 10 mg PO DAILY 06/05/18 [History Last Taken 08/04/19] atorvastatin 40 mg PO DAILY 06/05/18 [History Last Taken 08/04/19] docusate sodium [DOK] 100 mg PO DAILY #20 capsule 06/05/18 [Rx Last Taken 08/04/19] insulin aspart U-100 10 units SUBCUT TIDAC 08/04/19 [History Last Taken 08/04/19] insulin degludec 62 unit SQ DAILY 08/04/19 [History Last Taken 08/04/19] oxybutynin chloride 5 mg PO DAILY 08/04/19 [History Last Taken 08/04/19] pregabalin 50 mg PO TID 08/04/19 [History Last Taken 08/04/19] hydrochlorothiazide 25 mg PO DAILY 11/03/20 [History Last Taken Unknown] lansoprazole 30 mg PO DAILY 11/03/20 [History Last Taken Unknown] Allergy/AdvReac Type Severity Reaction Status Date / Time blue dye Allergy PASS OUT Verified 11/03/20 14:12 unable to obtain (Due to encephalopathy patient is unable to answer questions at this time) Surgical History H/O: hysterectomy History of cholecystectomy Social History Smoking Status: Never smoker substance use type: does not use ROS Review of Systems ROS Unobtainable: due to encephalopathy Vital Signs Vital Signs Vital Signs: 11/03/20 13:39 11/03/20 14:13 11/03/20 16:02 Temperature 97.3 F L Temperature Source Temporal Pulse Rate 104 H 90 Respiratory Rate 16 18 Respiratory Effort Normal Non-Labored Respiratory Pattern Normal Blood Pressure 172/68 H 174/67 H Blood Pressure Mean 102 102 Pulse Ox 90 95 Oxygen Delivery Method Room Air Nasal Cannula Oxygen Flow Rate (L/min) 2 Weight Weight: 230 lb Body Mass Index (BMI) 37.1 Physical Exam Const General Appearance: cooperative and disheveled Orientation / Consciousness: oriented to person and oriented to place Exam Limitations: altered mental status HEENT normocephalic and head/scalp atraumatic Eyes conjunctivae normal and no scleral icterus Neck supple and no JVD General: trachea midline Resp normal respiratory effort, normal air movement and clear to auscultation bilaterally Cardio regular rate, regular rhythm, S1 normal heart sound and S2 normal heart sound GI normal to inspection, nondistended, normoactive bowel sounds, soft to palpation and non-tender Extremity normal capillary refill and no clubbing, cyanosis or edema General Extremity: no tenderness to palpation of joints or extremities Skin General Skin Exam: no breakdown and turgor normal Lesions: no lesions Rashes: no rashes Neuro no focal motor deficits and no sensory deficits noted Speech: speech normal Motor Exam: general weakness Psych Attitude: calm Speech: normal speech Thought Process: confused Results Lab / Micro Data Result Diagrams: 11/04/20 05:00 11/04/20 05:00 Labs: Laboratory Results - last 24 hr 11/03/20 14:30: WBC 14.0 H, RBC 3.19 L, Hgb 8.4 L, Hct 28.7 L, MCV 90.0, MCH 26.3 L, MCHC 29.3 L D, RDW Std Deviation 56.9 H, RDW Coeff of Wade 17.1 H, Plt Count 229, MPV 10.4, Immature Gran % (Auto) 1.000 H, Neut % (Auto) 84.4 H, Lymph % (Auto) 9.4 L, [place]ack[place] % (Auto) 3.1, Eos % (Auto) 1.8, Baso % (Auto) 0.3, Absolute Neuts (auto) 11.8 H, Absolute Lymphs (auto) 1.31, Nucleated RBC % 0 11/03/20 14:30: PT 15.0 H, INR 1.2, APTT 29.9 11/03/20 14:30: Sodium 145, Potassium 4.6, Chloride 116 H, Carbon Dioxide 19.0 L, Anion Gap 10, BUN 75 H, Creatinine 4.48 H, Estim Creat Clear Calc 10.47, Est GFR (MDRD) Af Amer 12 L, Est GFR (MDRD) Non-Af 10 L, BUN/Creatinine Ratio 16.7, Glucose 97, Calcium 8.6, Total Bilirubin 0.30, AST 21, ALT 26, Alkaline Phosphatase 126 H, Troponin I High Sens 24.8, Total Protein 8.0, Albumin 2.8 L, Globulin 5.2 H, Albumin/Globulin Ratio 0.5 L 11/03/20 14:30: Ethyl Alcohol < 3.0 11/03/20 14:30: Lactic Acid 0.7 11/03/20 15:00: Urine Color Yellow, Urine Clarity Clear, Urine pH 7.0, Ur Specific [place] 1.010, Urine Protein 100 H, Urine Glucose (UA) Normal, Urine Ketones Negative, Urine Occult Blood 150 H, Urine Nitrite Negative, Urine Bilirubin Negative, Urine Urobilinogen Normal, Ur Leukocyte Esterase 500 H, Urine RBC 5-10 SEEN, Urine WBC 10-25 SEEN, Ur Squamous Epith Cells 0-5 SEEN, Urine Bacteria 1+, Hyaline Casts 0-5 SEEN, Urine Mucus 0 SEEN 11/03/20 15:00: Urine Opiates Screen POSITIVE H, Urine Methadone Screen NEGATIVE, Ur Barbiturates Screen NEGATIVE, Ur Phencyclidine Scrn NEGATIVE, Ur Amphetamines Screen NEGATIVE, U Methamphetamin-MDMA NEGATIVE, U Benzodiazepines Scrn NEGATIVE, Urine Cocaine Screen NEGATIVE, U Cannabinoids Screen NEGATIVE, Ur Drug Screen Comment Radiology Impression Brain CT 11/03/20 14:12 IMPRESSION: Normal unenhanced CT scan of the brain. Electronically Signed: Reji Nowak MD at 15:29 EDT Tel , Service support , Abdomen/Pelvis CT 11/03/20 14:13 IMPRESSION: 1. 5 mm nonobstructing stone lower pole the left kidney which is unchanged. 2. Moderate right hydronephrosis and ureteral dilatation but no obstructing stones suggestive of ureteral stricture. Retrograde Polygram may be useful. Electronically Signed: Reji Nowak MD at 16:14 EDT Tel , Service support , Chest X-Ray 11/03/20 15:20 IMPRESSION: Poor inspiration with some bibasilar atelectasis. Electronically Signed: Reji Nowak MD at 15:49 EDT Tel , Service support , Assessment & Plan Assessment/Plan (1) Acute UTI: (2) Renal colic on right side: (3) Acute renal failure: QUALIFIERS: Acute renal failure type: unspecified Qualified Code(s): N17.9 - Acute kidney failure, unspecified (4) Encephalopathy acute: PLAN: 1. Acute UTI with elevated white blood cell count -Admit to PCU for cardiac monitoring -Patient received first dose Rocephin in ER, will continue. patient has been on Keflex p.o. for past 3 days with no improvement in symptoms -Strict intake and output -CBC and BMP daily -Continue urinary catheter, originally placed in the ER -Normal saline 150 ml/hr -Urine culture and blood culture from 10/31/2020 + for E. coli -PT and OT to eval and treat 2. Acute on chronic renal failure -Daily BMP, trend BUN, creatinine and GFR -We will hold hydrochlorothiazide, oxybutynin at this time 3. Acute encephalopathy -Possibly due to infectious process, could be metabolic as well due to patient on chronic Lyrica 4. Diabetes mellitus type 2 -Due to hypoglycemia on presentation we will hold home doses of insulin. -AC at bedtime blood sugars ordered 5. Hypertension -Patient currently hypertensive however patient is unaware of when she last took her medications. We will continue Norvasc, HCTZ will be held due to kidney function -Vital signs per protocol trend BP and heart rate 6. Chronic anemia -Patient has chronic anemia, however hemoglobin is lower than baseline at 8.4. -Trend daily with CBC DVT prophylaxis-subcu heparin This patient was seen by MARK Lange under the supervision of Dr. Navarrete. Documented by User: Dr. Gilberto Navarrete MD 11/04/20 12:30 HPI - General General Date of Admission: 11/03/20 [facility] Medical History (Updated 11/03/20 @ 22:[address] Ashlyn Kaminski MD) Chronic kidney disease, stage 3b Depression Diabetes High cholesterol Hydronephrosis Hypertension Uncontrolled type 2 diabetes mellitus Home Medications citalopram 20 mg PO DAILY 07/10/14 [History Last Taken 08/04/19] amlodipine 10 mg PO DAILY 06/05/18 [History Last Taken 08/04/19] atorvastatin 40 mg PO DAILY 06/05/18 [History Last Taken 08/04/19] docusate sodium [DOK] 100 mg PO DAILY #20 capsule 06/05/18 [Rx Last Taken 08/04/19] insulin aspart U-100 10 units SUBCUT TIDAC 08/04/19 [History Last Taken 08/04/19] insulin degludec 62 unit SQ DAILY 08/04/19 [History Last Taken 08/04/19] oxybutynin chloride 5 mg PO DAILY 08/04/19 [History Last Taken 08/04/19] pregabalin 50 mg PO TID 08/04/19 [History Last Taken 08/04/19] hydrochlorothiazide 25 mg PO DAILY 11/03/20 [History Last Taken Unknown] lansoprazole 30 mg PO DAILY 11/03/20 [History Last Taken Unknown] Allergy/AdvReac Type Severity Reaction Status Date / Time blue dye Allergy PASS OUT Verified 11/03/20 14:12 Surgical History H/O: hysterectomy History of cholecystectomy Social History Smoking Status: Never smoker substance use type: does not use Results Lab / Micro Data Result Diagrams: 11/04/20 05:00 11/04/20 05:00 Charges/Coding Addendum Addendum: Dr. Navarrete: I personally reviewed the chart and examined the patient, and agree with the above findings. 75-year-old female brought from home with confusion and bystander heard her screaming for help at her house and brought her in. In the ER she is confused but was found to have positive blood cultures for gram-negative jacqueline as well as right-sided hydronephrosis, likely from a passed stone and scarring. Will consult urology to assist with stent placement for the right hydronephrosis, continue with IV Rocephin for gram-negative jacqueline bacteremia, new cultures are pending. Hopefully with the continued treatment with antibiotics per metabolic encephalopathy should resolve. Visit Charges Inpatient E&M: 14148 Init Hosp L3
[2020-11-03] MEDS: 0.9% Normal Saline 1,000 ML 100 ML IV (18:18)
[2020-11-03] MEDS: Ondansetron 4 MG/2 ML Vial IV (19:47)
[2020-11-03] MEDS: Atorvastatin Calcium 40 MG Tablet PO ×2 (21:45)
[2020-11-03] MEDS: Heparin Injection (Vial) 5,000 UNIT/ML VIAL 5000 UNIT SC (21:45)
[2020-11-03] MEDS: hydrALAZINE 20 MG/ML Vial 10 MG IV (21:51)
--- NOTE | 2020-11-03 22:23 | CON.PCM_ITS ---
Assessment & Plan Assessment/Plan (1) Acute renal failure: QUALIFIERS: Acute renal failure type: unspecified Qualified Code(s): N17.9 - Acute kidney failure, unspecified PLAN: NPO after midneight continue antibiotics and supportive care continue odom catheter plan for cystoscopy and right ureteral stent insertion tomorrow. will find out who to get consent from. (2) Pyelonephritis: (3) Bacteremia: (4) Hydronephrosis: HPI Consult Data Date of Consult: 11/03/20 HPI Narrative HPI Narrative: DOMINICK NEELY, is a 75 F who presents for management of acute pyelonephritis, acute renal failure and hydronephrosis. Found by neighbor calling for help when she couldn't get out of bed. She apparently left the ER AMA 3 days ago to take care of her dog, and her pyelonephritis worsened. She now complains just of being cold and having a kidney infection. She denies pain and cannot recall any other history at the present time. [facility] Medical History (Updated 11/03/20 @ 22:[address] Ashlyn Kaminski MD) Chronic kidney disease, stage 3b Depression Diabetes High cholesterol Hydronephrosis Hypertension Uncontrolled type 2 diabetes mellitus Home Medications citalopram 20 mg PO DAILY 07/10/14 [History Last Taken 08/04/19] amlodipine 10 mg PO DAILY 06/05/18 [History Last Taken 08/04/19] atorvastatin 40 mg PO DAILY 06/05/18 [History Last Taken 08/04/19] docusate sodium [DOK] 100 mg PO DAILY #20 capsule 06/05/18 [Rx Last Taken 08/04/19] insulin aspart U-100 10 units SUBCUT TIDAC 08/04/19 [History Last Taken 08/04/19] insulin degludec 62 unit SQ DAILY 08/04/19 [History Last Taken 08/04/19] oxybutynin chloride 5 mg PO DAILY 08/04/19 [History Last Taken 08/04/19] pregabalin 50 mg PO TID 08/04/19 [History Last Taken 08/04/19] hydrochlorothiazide 25 mg PO DAILY 11/03/20 [History Last Taken Unknown] lansoprazole 30 mg PO DAILY 11/03/20 [History Last Taken Unknown] Allergy/AdvReac Type Severity Reaction Status Date / Time blue dye Allergy PASS OUT Verified 11/03/20 14:12 Surgical History H/O: hysterectomy History of cholecystectomy Social History Smoking Status: Never smoker substance use type: does not use ROS ROS Narrative see above. denies abdominal and flank pain, no nausea, vomiting, chest pain, difficulty breathing, and then became frustrated with the conversation. Physical Exam Const alert and no apparent distress HEENT normocephalic, head/scalp atraumatic, hearing grossly normal bilaterally, external ears normal and external nose normal Neck supple General: trachea midline Lymph Lymphatic: no lymphedema noted Chest inspection of chest normal Chest: symmetrical chest wall rise Resp normal respiratory effort, normal air movement, no retractions and no use of accessory muscles Cardio regular rate GI soft to palpation, non-tender and non-distended Back/Spine no CVA tenderness Skin no rashes or lesions noted and no wounds Neuro moves all extremities Lab / Micro Data Result Diagrams: 11/03/20 14:30 11/03/20 14:30 Labs: Laboratory Results - last 24 hr 11/03/20 14:30: WBC 14.0 H, RBC 3.19 L, Hgb 8.4 L, Hct 28.7 L, MCV 90.0, MCH 26.3 L, MCHC 29.3 L D, RDW Std Deviation 56.9 H, RDW Coeff of Wade 17.1 H, Plt Count 229, MPV 10.4, Immature Gran % (Auto) 1.000 H, Neut % (Auto) 84.4 H, Lymph % (Auto) 9.4 L, [place] % (Auto) 3.1, Eos % (Auto) 1.8, Baso % (Auto) 0.3, Absolute Neuts (auto) 11.8 H, Absolute Lymphs (auto) 1.31, Nucleated RBC % 0 11/03/20 14:30: PT 15.0 H, INR 1.2, APTT 29.9 11/03/20 14:30: Sodium 145, Potassium 4.6, Chloride 116 H, Carbon Dioxide 19.0 L , Anion Gap 10, BUN 75 H, Creatinine 4.48 H, Estim Creat Clear Calc 10.47, Est GFR (MDRD) Af Amer 12 L, Est GFR (MDRD) Non-Af 10 L, BUN/Creatinine Ratio 16.7, Glucose 97, Calcium 8.6, Total Bilirubin 0.30, AST 21, ALT 26, Alkaline Phosphatase 126 H, Troponin I High Sens 24.8, Total Protein 8.0, Albumin 2.8 L, Globulin 5.2 H, Albumin/Globulin Ratio 0.5 L 11/03/20 14:30: Ethyl Alcohol < 3.0 11/03/20 14:30: Lactic Acid 0.7 11/03/20 15:00: Urine Color Yellow, Urine Clarity Clear, Urine pH 7.0, Ur Specific [place] 1.010, Urine Protein 100 H, Urine Glucose (UA) Normal, Urine Ketones Negative, Urine Occult Blood 150 H, Urine Nitrite Negative, Urine Bilirubin Negative, Urine Urobilinogen Normal, Ur Leukocyte Esterase 500 H, Urine RBC 5-10 SEEN, Urine WBC 10-25 SEEN, Ur Squamous Epith Cells 0-5 SEEN, Urine Bacteria 1+, Hyaline Casts 0-5 SEEN, Urine Mucus 0 SEEN 11/03/20 15:00: Urine Opiates Screen POSITIVE H, Urine Methadone Screen NEGATIVE, Ur Barbiturates Screen NEGATIVE, Ur Phencyclidine Scrn NEGATIVE, Ur Amphetamines Screen NEGATIVE, U Methamphetamin-MDMA NEGATIVE, U Benzodiazepines Scrn NEGATIVE, Urine Cocaine Screen NEGATIVE, U Cannabinoids Screen NEGATIVE, Ur Drug Screen Comment Radiology Impression Brain CT 11/03/20 14:12 IMPRESSION: Normal unenhanced CT scan of the brain. Electronically Signed: Reji Nowak MD at 15:29 EDT Tel , Service support , Abdomen/Pelvis CT 11/03/20 14:13 IMPRESSION: 1. 5 mm nonobstructing stone lower pole the left kidney which is unchanged. 2. Moderate right hydronephrosis and ureteral dilatation but no obstructing stones suggestive of ureteral stricture. Retrograde Polygram may be useful. Electronically Signed: Reji Nowak MD at 16:14 EDT Tel , Service support , Chest X-Ray 11/03/20 15:20 IMPRESSION: Poor inspiration with some bibasilar atelectasis. Electronically Signed: Reji Nowak MD at 15:49 EDT Tel , Service support ,
[2020-11-03] MEDS: MELATONIN 3 MG TABLET PO (22:38)
[2020-11-03 23:45] LABS: Bedside Glucose 85 mg/dL (70-110)
[2020-11-04] VITALS (19 sets, daily range): BP systolic 123–168; BP diastolic 43–99; PULSE 69–85; RESP 16–18; TEMP 36.1–36.9; O2SAT 92–100; BMI 28.1
[2020-11-04] MEDS: LORazepam 2 MG/ML Syringe 0.5 MG IV (00:26)
[2020-11-04] MEDS: 0.9% Normal Saline 1,000 ML 100 ML IV ×3 (00:26→16:31)
[2020-11-04 05:17] LABS: Absolute Lymphocyte Count 1.71 X10^3/uL (0.83-4.51); Absolute Neutrophil Count 7.5 X10^3/uL (2.0-7.7); Basophil# 0.03 X10^3/uL; Basophil% 0.3 % (0-1); Eosinophil# 0.26 X10^3/uL; Eosinophils% 2.6 % (0-5); Hematocrit 25.5 % (37-47); Hemoglobin 7.7 g/dL (12.0-15.0); Lymphocyte # 1.71 X10^3/ul (0.83-4.51); Lymphocyte % 16.9 % (19-41); Mean Corp Hgb Conc 30.2 g/dL (32-36); Mean Corpuscular Hgb 26.6 pg (27.0-32.0); Mean Corpuscular Volume 88.2 fL (81-99); Mean Platelet Vol. 10.3 fl (6.2-12.0); Monocyte# 0.52 X10^3/uL; Monocyte% 5.2 % (0-10); NRBC Flagged by Analyzer 0 % (0-5); Neutrophil # 7.51 X10^3/uL (2.7-7.7); Neutrophil % 74.4 % (47-70); Platelet Count 204 K/mm3 (150-450); RBC Distribution Width CV 16.8 % (11.6-14.6); RBC Distribution Width SD 54.7 fl (35.1-43.9); Red Blood Count 2.89 M/mm3 (4.2-5.4); White Blood Count 10.1 K/mm3 (4.4-11.0)
[2020-11-04 05:35] LABS: Anion Gap 7 (5-15); BUN 61 mg/dL (7-18); Calcium,Total 7.9 mg/dL (8.5-10.1); Chloride 120 mmol/L (98-107); Creatinine, Serum 3.58 mg/dL (0.55-1.02); EST Glomerular Filtration Rate 13 mL/min (>60); Est Glom Filt Rate - Afr Amer 16 mL/min (>60); Estimated Creatinine Clearance 10.56 ml/min; Glucose 116 mg/dL (74-106); Potassium 4.4 mmol/L (3.5-5.1); Sodium Level 146 mmol/L (136-145)
[2020-11-04 05:36] LABS: Partial Thromboplast Time 34.1 Seconds (24.1-36.2)
--- NOTE | 2020-11-04 05:55 | EKG12_ITS ---
Test Reason : PRE-OP Blood Pressure : / mmHG Vent. Rate : 080 BPM Atrial Rate : 080 BPM P-R Int : 182 ms QRS Dur : 138 ms QT Int : 430 ms P-R-T Axes : 081 -32 042 degrees QTc Int : 495 ms Normal sinus rhythm Left axis deviation Right bundle branch block Abnormal ECG Confirmed by GILBERT ROWELL, BOB ([id number]), graphics editor GULSHAN TRAYLOR ([id number]) on 11/05/2020 1:20:53 PM Referred By: QUE Confirmed By:BOB HUNT MD
[2020-11-04 08:30] LABS: Hemoglobin A1c 9.3 % (3.8-5.6)
[2020-11-04] MEDS: Ceftriaxone 1 GM/50 ML BAG IV (09:09)
--- NOTE | 2020-11-04 09:29 | CASEMGMT ---
SARAH called [employer] and spoke with Paco Dunne on their coverage line. Patient is active with [employer] and her case liner is Isela Desai. She has a medical alert button, she gets 5 frozen meals a week from [employer], and has [employer] for 3 hours M,W, and F. 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
--- NOTE | 2020-11-04 12:30 | PCM.PN.HOSP ---
Subjective Subjective Still confused, no new issues overnight. White blood cell count has improved Objective Data Objective Data Vital Signs: Vital Signs Temp Pulse Resp BP Pulse Ox 98.0 F 75 16 143/43 H 95 11/04/20 09:05 11/04/20 11:00 11/04/20 09:05 11/04/20 09:05 11/04/20 09:05 Oxygen Flow Rate (L/min) 2 Oxygen Delivery Method Nasal Cannula Weight: 149 lb 4.047 oz Body Mass Index (BMI) 28.2 Intake & Output: Intake and Output for Last 24 Hours 11/03/20 11/04/20 11/05/20 03:59 03:59 03:59 Intake Total 2273.33 / 2273.33 931.67 / 931.67 Output Total 1250 / 1250 1450 / 1450 Balance 1023.33 / 1023.33 -518.33 / -518.33 Medical Nutrition Assessment Dietitian: Nutrition Therapy Diagnosis Start: 11/04/20 11:54 Freq: Status: Active Protocol: Document 11/04/20 12:03 (Rec: 11/04/20 12:03 [id number]) Nutrition Malnutrition Evidence of Malnutrition Exists No Intake Problem Inadequate Oral Intake Etiology r/t mental status, planned procedure Signs/Symptoms as evidenced by no oral intake x 12 hours 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 Dietitian Recommendations/Changes cardiac, 1600 calorie controlled diet when medically indicated. Recommend speech therapy consult to assess appropriate textures/ consistencies given reported poor dentition. Lab / Micro Data Result Diagrams: 11/04/20 05:00 11/04/20 05:00 Labs: Laboratory Results - last 24 hr 11/03/20 14:02: POC Glucose 85 11/03/20 14:30: WBC 14.0 H, RBC 3.19 L, Hgb 8.4 L, Hct 28.7 L, MCV 90.0, MCH 26.3 L, MCHC 29.3 L D, RDW Std Deviation 56.9 H, RDW Coeff of Wade 17.1 H, Plt Count 229, MPV 10.4, Immature Gran % (Auto) 1.000 H, Neut % (Auto) 84.4 H, Lymph % (Auto) 9.4 L, [place] % (Auto) 3.1, Eos % (Auto) 1.8, Baso % (Auto) 0.3, Absolute Neuts (auto) 11.8 H, Absolute Lymphs (auto) 1.31, Nucleated RBC % 0 11/03/20 14:30: PT 15.0 H, INR 1.2, APTT 29.9 11/03/20 14:30: Sodium 145, Potassium 4.6, Chloride 116 H, Carbon Dioxide 19.0 L, Anion Gap 10, BUN 75 H, Creatinine 4.48 H, Estim Creat Clear Calc 10.47, Est GFR (MDRD) Af Amer 12 L, Est GFR (MDRD) Non-Af 10 L, BUN/Creatinine Ratio 16.7, Glucose 97, Calcium 8.6, Total Bilirubin 0.30, AST 21, ALT 26, Alkaline Phosphatase 126 H, Troponin I High Sens 24.8, Total Protein 8.0, Albumin 2.8 L, Globulin 5.2 H, Albumin/Globulin Ratio 0.5 L 11/03/20 14:30: Ethyl Alcohol < 3.0 11/03/20 14:30: Lactic Acid 0.7 11/03/20 15:00: Urine Color Yellow, Urine Clarity Clear, Urine pH 7.0, Ur Specific [place] 1.010, Urine Protein 100 H, Urine Glucose (UA) Normal, Urine Ketones Negative, Urine Occult Blood 150 H, Urine Nitrite Negative, Urine Bilirubin Negative, Urine Urobilinogen Normal, Ur Leukocyte Esterase 500 H, Urine RBC 5-10 SEEN, Urine WBC 10-25 SEEN, Ur Squamous Epith Cells 0-5 SEEN, Urine Bacteria 1+, Hyaline Casts 0-5 SEEN, Urine Mucus 0 SEEN 11/03/20 15:00: Urine Opiates Screen POSITIVE H, Urine Methadone Screen NEGATIVE, Ur Barbiturates Screen NEGATIVE, Ur Phencyclidine Scrn NEGATIVE, Ur Amphetamines Screen NEGATIVE, U Methamphetamin-MDMA NEGATIVE, U Benzodiazepines Scrn NEGATIVE, Urine Cocaine Screen NEGATIVE, U Cannabinoids Screen NEGATIVE, Ur Drug Screen Comment 11/04/20 05:00: WBC 10.1, RBC 2.89 L, Hgb 7.7 L, Hct 25.5 L, MCV 88.2, MCH 26.6 L, MCHC 30.2 L, RDW Std Deviation 54.7 H, RDW Coeff of Wade 16.8 H, Plt Count 204, MPV 10.3, Immature Gran % (Auto) 0.600, Neut % (Auto) 74.4 H, Lymph % (Auto) 16.9 L, [place] % (Auto) 5.2, Eos % (Auto) 2.6, Baso % (Auto) 0.3, Absolute Neuts (auto) 7.5, Absolute Lymphs (auto) 1.71, Nucleated RBC % 0 11/04/20 05:00: Sodium 146 H, Potassium 4.4, Chloride 120 H, Carbon Dioxide 19.0 L, Anion Gap 7, BUN 61 H, Creatinine 3.58 H, Estim Creat Clear Calc 10.56, Est GFR (MDRD) Af Amer 16 L, Est GFR (MDRD) Non-Af 13 L, BUN/Creatinine Ratio 17.0, Glucose 116 H, Calcium 7.9 L 11/04/20 05:00: APTT 34.1 11/04/20 05:00: Hemoglobin A1c 9.3 H Micro: Microbiology 11/04/20 08:51 Mucosa - Nose SARS-CoV-2 Antigen (Rapid) - Final Radiography Diagnostic Testing: Radiology Impression Brain CT 11/03/20 14:12 IMPRESSION: Normal unenhanced CT scan of the brain. Electronically Signed: Reji Nowak MD at 15:29 EDT Tel , Service support , Abdomen/Pelvis CT 11/03/20 14:13 IMPRESSION: 1. 5 mm nonobstructing stone lower pole the left kidney which is unchanged. 2. Moderate right hydronephrosis and ureteral dilatation but no obstructing stones suggestive of ureteral stricture. Retrograde Polygram may be useful. Electronically Signed: Reji Nowak MD at 16:14 EDT Tel , Service support , Chest X-Ray 11/03/20 15:20 IMPRESSION: Poor inspiration with some bibasilar atelectasis. Electronically Signed: Reji Nowak MD at 15:49 EDT Tel , Service support , Physical Exam Const no apparent distress Orientation / Consciousness: confused and disoriented HEENT moist oral mucous membranes Head and Scalp: normocephalic Eyes PERRL, EOMs intact bilaterally and conjunctivae normal Neck supple and no JVD Resp normal respiratory effort, no retractions, no use of accessory muscles and clear to auscultation bilaterally Auscultation: Negative for crackles, rales, rhonchi or wheezes Cardio regular rate, regular rhythm, S1 normal heart sound, S2 normal heart sound and no murmurs GI soft to palpation, non-tender and non-distended; Negative for hepatosplenomegaly Extremity no clubbing, cyanosis or edema Skin no rashes or lesions noted Neuro no focal motor deficits and no sensory deficits noted Psych affect normal Appearance: grossly normal Assessment & Plan Assessment/Plan (1) Acute UTI: (2) Renal colic on right side: (3) Acute renal failure: QUALIFIERS: Acute renal failure type: unspecified Qualified Code(s): N17.9 - Acute kidney failure, unspecified (4) Encephalopathy acute: PLAN: 1. Acute UTI due to E. coli with bacteremia due to E. coli/metabolic encephalopathy/EMANUEL on CKD 4/right-sided hydronephrosis -Admit to PCU for cardiac monitoring -Continue with Rocephin -Continue urinary catheter, originally placed in the ER, will consult urology for stent placement in the right ureter secondary to hydronephrosis -Continue with IV fluids -PT and OT to eval and treat 2. Diabetes mellitus type 2 -We'll hold her home insulin secondary to hypoglycemia but will place her on sliding scale insulin with Accu-Cheks AC at bedtime -We'll adjustments as necessary 3. HTN/HLD -Blood pressure stable, continue with her home blood pressure medications -Continue with statin 4. Chronic anemia -Patient has chronic anemia, however hemoglobin is lower than baseline at 8.4. -We'll monitor and transfuse for hemoglobins below seven DVT: Heparin Charges/Coding Visit Charges Inpatient E&M: 66582 Subs Hosp L2
--- NOTE | 2020-11-04 14:31 | CASEMGMT ---
RN NOEMY called daughter for initial transition planning/care coordination assessment as patient is confused. JOVANA SALGUERO introduced self and role at [facility]. Daughter willing to participate in assessment and is able to answer all questions appropriately. Care providers, pharmacy, and demographics verified. Daughter is unsure of disposition at discharge. Daughter states she has no further needs or concerns at this time. CM to follow for discharge planning needs that may arise. PCP: Juan Pablo Specialists: unsure Preferred Pharmacy: [facility] Insurance: HARVEY Prescription Benefit: yes Living Will/HPOA: none LNOK: daughter Living Arrangements: Kenia lives alone in a first floor apartment. Patient is independent for toileting. Patient requires assistance for bathing and dressing. Transportation: daughter DME/HHC: patient has hospital bed, grab bars, walker, wheelchair, and medical alert at home. Patient is active with [facility] [facility] and has aides through [facility] 3hrs per day. Patient was recently seen in ED and was setup with [facility]. Daughter states that she would like to discuss discharge planning with patient Disposition Plan: Patient to discharge home with family support and follow-up plans in place. Barbara BOX, RN, CM
--- NOTE | 2020-11-04 14:50 | OP.PCM_ITS ---
Problems Associated Problem List Diagnoses (1) Hydronephrosis: (2) Acute renal failure: (3) Urinary tract infection with fever: Report of Operation Date of Procedure: 11/04/20 Pre-Operative Diagnosis: Hydronephrosis, acute renal failure, urinary tract infection with fever Post-Operative Diagnosis: Same Surgery/Procedure Performed:: Cystoscopy insertion of right ureteral stent Surgeon: Ashlyn Kaminski Type of Anesthesia: MAC Description of Procedure: The patient is a 75-year-old female with right-sided hydronephrosis, acute renal failure, urinary tract infection with fever. Informed consent was obtained by her daughter Brandi for insertion of a right ureteral stent. The patient was taken to the operating room and placed on the operating room table. Anesthesia monitored the head, neck, airway, IV access and vital signs throughout the case. Once anesthesia was appropriate ministered the patient was placed into dorsal lithotomy position was prepped and draped in usual sterile fashion. Upon evaluation of the perineum, a grade 3 rectocele was obvious. At this time the cystoscope was inserted through the urethra under d irect visualization into the urinary bladder. No masses, areas of ulceration or foreign body were identified. A 0.035 Glidewire was then used to intubate the right ureteral orifice and was curled within the renal pelvis seen on fluoroscopic evaluation. A 6 [place] 22 cm double-J stent was inserted over the wire with curling in the renal pelvis as well as the urinary bladder. At this time a Alexandre catheter was inserted to straight drain 10 cc in the balloon. The patient was awakened and taken to the recovery room in stable condition. There were no complications during this procedure. Grafts/Implants Used: 6 x 22 JJ stent Complications None Admit VTE Documentation VTE Present on Admission: Yes VTE Mechan Device Prophylaxis: SCD's VTE Pharm Prophylaxis ordered?: Yes
[2020-11-04 15:46] LABS: Bedside Glucose 127 mg/dL (70-110)
[2020-11-04] MEDS: Docusate Sodium 100 MG Capsule PO (16:24)
[2020-11-04] MEDS: amLODIPine 10 MG Tablet PO (16:24)
[2020-11-04] MEDS: Pantoprazole Sodium 40 MG Tablet PO (16:24)
[2020-11-04] MEDS: Citalopram 20 MG Tablet PO (16:24)
[2020-11-04 16:40] LABS: Bedside Glucose 111 mg/dL (70-110)
[2020-11-04] MEDS: Acetaminophen 325 MG Tablet 650 MG PO (20:42)
[2020-11-04] MEDS: Insulin Lispro 100 UNIT/ML INSULN.PEN SC (22:22)
[2020-11-04] MEDS: Heparin Injection (Vial) 5,000 UNIT/ML VIAL 5000 UNIT SC (22:22)
[2020-11-04 22:30] LABS: Bedside Glucose 161 mg/dL (70-110)
[2020-11-05] VITALS (16 sets, daily range): BP systolic 158–176; BP diastolic 48–68; PULSE 80–105; RESP 16–18; TEMP 36.4–36.8; O2SAT 91–95
[2020-11-05] MEDS: 0.9% Normal Saline 1,000 ML 100 ML IV ×2 (02:29→12:43)
[2020-11-05] MEDS: hydrALAZINE 20 MG/ML Vial 10 MG IV ×2 (02:46→12:59)
[2020-11-05 06:47] LABS: Absolute Lymphocyte Count 1.57 X10^3/uL (0.83-4.51); Absolute Neutrophil Count 3.8 X10^3/uL (2.0-7.7); Basophil# 0.01 X10^3/uL; Basophil% 0.2 % (0-1); Eosinophil# 0.27 X10^3/uL; Eosinophils% 4.5 % (0-5); Hematocrit 26.4 % (37-47); Lymphocyte # 1.57 X10^3/ul (0.83-4.51); Mean Corp Hgb Conc 30.3 g/dL (32-36); Mean Corpuscular Hgb 26.4 pg (27.0-32.0); Mean Corpuscular Volume 87.1 fL (81-99); Mean Platelet Vol. 10.5 fl (6.2-12.0); Monocyte# 0.38 X10^3/uL; Monocyte% 6.3 % (0-10); NRBC Flagged by Analyzer 0 % (0-5); Neutrophil # 3.75 X10^3/uL (2.7-7.7); Neutrophil % 61.8 % (47-70); Platelet Count 216 K/mm3 (150-450); RBC Distribution Width CV 16.1 % (11.6-14.6); RBC Distribution Width SD 51.4 fl (35.1-43.9); Red Blood Count 3.03 M/mm3 (4.2-5.4); White Blood Count 6.1 K/mm3 (4.4-11.0)
[2020-11-05] MEDS: Heparin Injection (Vial) 5,000 UNIT/ML VIAL 5000 UNIT SC ×3 (06:47→21:42)
[2020-11-05 06:55] LABS: Bedside Glucose 121 mg/dL (70-110)
[2020-11-05 07:11] LABS: Anion Gap 8 (5-15); BUN 42 mg/dL (7-18); BUN/Creat Ratio 15.8 RATIO (10-20); Calcium,Total 7.8 mg/dL (8.5-10.1); Chloride 120 mmol/L (98-107); Creatinine, Serum 2.65 mg/dL (0.55-1.02); EST Glomerular Filtration Rate 19 mL/min (>60); Est Glom Filt Rate - Afr Amer 23 mL/min (>60); Estimated Creatinine Clearance 14.27 ml/min; Glucose 112 mg/dL (74-106); Potassium 3.6 mmol/L (3.5-5.1); Sodium Level 146 mmol/L (136-145)
[2020-11-05] MEDS: Pantoprazole Sodium 40 MG Tablet PO (08:49)
[2020-11-05] MEDS: amLODIPine 10 MG Tablet PO (08:50)
[2020-11-05] MEDS: Citalopram 20 MG Tablet PO (08:50)
[2020-11-05] MEDS: Docusate Sodium 100 MG Capsule PO (08:50)
[2020-11-05] MEDS: Ceftriaxone 1 GM/50 ML BAG IV (10:18)
[2020-11-05] MEDS: Insulin Lispro 100 UNIT/ML INSULN.PEN SC ×3 (11:21→21:42)
[2020-11-05 11:30] LABS: Bedside Glucose 232 mg/dL (70-110)
--- NOTE | 2020-11-05 14:51 | CASEMGMT ---
Therapy told SW that patient's daughter is here, but she has to leave to get to work. SW briefly met with her in the hallway and she said she talked with her mom about going to a alf. She said she is more with it now so SW should talk with her about what alf she would like to go to. She said SW can call her tomorrow during the day if needed. Therapy saw patient and stated she needs to go to a alf. SW met with patient, introduced self and role at [facility]. SW gave patient a list of SNF providers including quality and resource use data and consistent with the patient?s preferred geographic region, medical needs, and insurance network. SW told her SW just needs her to let SW know 2-3 choices and SW will check with the facilities to see if they can accept her. SW told her SW will check back with her. Yaneli BANEGAS
--- NOTE | 2020-11-05 16:29 | PN.HOSP_ITS ---
Subjective Subjective No fever or chills. Blood pressure elevated 172/65. Patient does not remember about the urology procedure she had yesterday did not remember why [place]. She is confused and disoriented. Physical exam General: Alert, Oriented x3, Cooperative HEENT: Atraumatic, PERRLA, EOMI, Normocephalic Oral: No Gingival or Mucosal Lesions/ Ulcerations Neck: Supple, No JVD, Negative Carotid Bruits Lungs: Air entry diminished in bilateral lung bases. No crepitation/rhonchi Cardiovascular: Regular rate, Regular Rhythm, Normal S1, Normal S2, No murmurs Abdomen: Bowel Sounds Present, Soft, Non Tender, Non-Distended : Alexandre catheter clear urine. Tenderness over both renal angle. No suprapubic tenderness. No palpable mass Extremities: No edema, Capillary Refill Less than 3 Seconds Skin: No rashes, No breakdown Musculoskeletal: No Tenderness to Palpation of Joints or Extremities Neurological: Cranial nerves II-XII grossly intact, Deep Tendon Reflexes 2+/4 and Symmetrical, Neuro grossly intact Psych/Mental Status: Normal Affect, Appropriate. Objective Data Objective Data Vital Signs: Vital Signs Temp Pulse Resp BP Pulse Ox 98.2 F 85 16 172/65 H 92 11/05/20 12:53 11/05/20 15:17 11/05/20 12:53 11/05/20 12:53 11/05/20 12:53 Oxygen Flow Rate (L/min) 2 Oxygen Delivery Method Room Air Weight: 149 lb 4.047 oz Body Mass Index (BMI) 28.1 Intake & Output: Intake and Output for Last 24 Hours 11/03/20 11/04/20 11/05/20 23:59 23:59 23:59 Intake Total 1460 / 1460 2543.33 / 2543.33 2443.34 / 2443.34 Output Total 700 / 700 3025 / 3025 2900 / 2900 Balance 760 / 760 -481.67 / -481.67 -456.66 / -456.66 Medical Nutrition Assessment Dietitian: Nutrition Therapy Diagnosis Start: 11/04/20 11:54 Freq: Status: Active Protocol: Document 11/04/20 12:03 (Rec: 11/04/20 12:03 [id number]) Nutrition Malnutrition Evidence of Malnutrition Exists No Intake Problem Inadequate Oral Intake Etiology r/t mental status, planned procedure Signs/Symptoms as evidenced by no oral intake x 12 hours 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 Dietitian Recommendations/Changes cardiac, 1600 calorie controlled diet when medically indicated. Recommend speech therapy consult to assess appropriate textures/ consistencies given reported poor dentition. Lab / Micro Data Result Diagrams: 11/05/20 05:40 11/05/20 05:40 Labs: Laboratory Results - last 24 hr 11/04/20 16:36: POC Glucose 111 H 11/04/20 22:18: POC Glucose 161 H 11/05/20 05:40: WBC 6.1, RBC 3.03 L, Hgb 8.0 L, Hct 26.4 L, MCV 87.1, MCH 26.4 L , MCHC 30.3 L, RDW Std Deviation 51.4 H, RDW Coeff of Wade 16.1 H, Plt Count 216, MPV 10.5, Immature Gran % (Auto) 1.200 H, Neut % (Auto) 61.8, Lymph % (Auto) 26.0, [place] % (Auto) 6.3, Eos % (Auto) 4.5, Baso % (Auto) 0.2, Absolute Neuts (auto) 3.8, Absolute Lymphs (auto) 1.57, Nucleated RBC % 0 11/05/20 05:40: Sodium 146 H, Potassium 3.6, Chloride 120 H, Carbon Dioxide 18.0 L, Anion Gap 8, BUN 42 H, Creatinine 2.65 H, Estim Creat Clear Calc 14.27, Est GFR (MDRD) Af Amer 23 L, Est GFR (MDRD) Non-Af 19 L, BUN/Creatinine Ratio 15.8, Glucose 112 H, Calcium 7.8 L 11/05/20 06:45: POC Glucose 121 H 11/05/20 11:20: POC Glucose 232 H Micro: Microbiology 11/03/20 16:00 Blood Culture (Wb) - Left Forearm Blood Culture - Preliminary No growth in 48 hours. 11/03/20 15:40 Blood Culture (Wb) - Right Forearm Blood Culture - Preliminary No growth in 48 hours. 11/04/20 08:51 Mucosa - Nose SARS-CoV-2 Antigen (Rapid) - Final Assessment & Plan Assessment/Plan (1) Acute UTI: (2) Renal colic on right side: (3) Acute renal failure: QUALIFIERS: Acute renal failure type: unspecified Qualified Code(s): N17.9 - Acute kidney failure, unspecified (4) Encephalopathy acute: PLAN: 1. Acute complicated upper E. coli UTI with bacteremia with right-sided hydronephrosis: Patient is being admitted in PCU. On IV Rocephin. Alexandre catheter is clear. DC Alexandre catheter. No fever. Patient had cystoscopy with right ureteral stent by Dr. Barton yesterday. CT abdomen pelvis shows moderate right hydronephrosis and ureteral dilatation but no obstructing stone cystoscopy ureteral stricture. 5 mm nonobstructing stone in lower pole of left kidney; unchanged. 2. EMANUEL on CKD stage IV: Patient baseline creatinine is around 1.9-2.3. Adm itted with 4.48, currently 2.65. 3. Metabolic encephalopathy from UTI: Confused and disoriented. Orientation cues. Avoid benzodiazepines. 4. Diabetes mellitus type 2: Patient hypoglycemic therefore home insulin was held. Accu-Cheks before meals and coverage Humalog sliding scale. 5.: Hypertension and dyslipidemia blood pressure is elevated. Home medications continued with hydralazine as needed for systolic blood pressure more than 180. On a statin 6 anemia of chronic kidney disease: Hemoglobin is on baseline: Hemoglobin 8.0 platelet count 216,000. DVT: Heparin Charges/Coding Visit Charges Inpatient E&M: 30948 Subs Hosp L2
[2020-11-05] MEDS: Ondansetron 4 MG/2 ML Vial IV (16:50)
[2020-11-05] MEDS: 0.9% Saline Lock 10 ML Syringe IV (16:50)
[2020-11-05 17:00] LABS: Bedside Glucose 195 mg/dL (70-110)
[2020-11-05] MEDS: hydrALAZINE 50 MG Tablet PO ×2 (17:01→21:42)
[2020-11-05] MEDS: LORazepam 2 MG/ML Syringe 0.5 MG IV (19:00)
[2020-11-05] MEDS: Atorvastatin Calcium 40 MG Tablet PO (21:42)
[2020-11-05 21:51] LABS: Bedside Glucose 156 mg/dL (70-110)
[2020-11-06] VITALS (14 sets, daily range): BP systolic 149–192; BP diastolic 44–70; PULSE 81–97; RESP 18–20; TEMP 36.4–36.9; O2SAT 92–95
[2020-11-06] MEDS: hydrALAZINE 20 MG/ML Vial 10 MG IV (03:42)
[2020-11-06] MEDS: 0.9% Saline Lock 10 ML Syringe IV ×2 (03:43→09:35)
[2020-11-06] MEDS: Heparin Injection (Vial) 5,000 UNIT/ML VIAL 5000 UNIT SC ×3 (05:36→21:45)
[2020-11-06 06:13] LABS: Absolute Neutrophil Count 3.7 X10^3/uL (2.0-7.7); Basophil# 0.03 X10^3/uL; Basophil% 0.5 % (0-1); Eosinophil# 0.19 X10^3/uL; Eosinophils% 3.1 % (0-5); Hematocrit 28.8 % (37-47); Hemoglobin 8.6 g/dL (12.0-15.0); Lymphocyte % 24.7 % (19-41); Mean Corp Hgb Conc 29.9 g/dL (32-36); Mean Platelet Vol. 10.2 fl (6.2-12.0); Monocyte# 0.54 X10^3/uL; Monocyte% 8.9 % (0-10); NRBC Flagged by Analyzer 0 % (0-5); Neutrophil # 3.66 X10^3/uL (2.7-7.7); Neutrophil % 60.2 % (47-70); Platelet Count 225 K/mm3 (150-450); RBC Distribution Width CV 16.1 % (11.6-14.6); RBC Distribution Width SD 51.6 fl (35.1-43.9); Red Blood Count 3.31 M/mm3 (4.2-5.4); White Blood Count 6.1 K/mm3 (4.4-11.0)
[2020-11-06 06:44] LABS: Anion Gap 10 (5-15); BUN 32 mg/dL (7-18); Calcium,Total 7.8 mg/dL (8.5-10.1); Chloride 118 mmol/L (98-107); Creatinine, Serum 2.46 mg/dL (0.55-1.02); EST Glomerular Filtration Rate 20 mL/min (>60); Est Glom Filt Rate - Afr Amer 25 mL/min (>60); Estimated Creatinine Clearance 15.37 ml/min; Glucose 164 mg/dL (74-106); Potassium 3.6 mmol/L (3.5-5.1); Sodium Level 146 mmol/L (136-145)
[2020-11-06] MEDS: Insulin Lispro 100 UNIT/ML INSULN.PEN SC ×4 (06:44→21:45)
[2020-11-06 06:50] LABS: Bedside Glucose 166 mg/dL (70-110)
--- NOTE | 2020-11-06 08:50 | CASEMGMT ---
SW spoke with patient this am. SW asked if she has picked any facilities. She said she has not. SW asked if she wants to stay in [place] or if she is open to going to [place] etc. She said her son mentioned going to [place], but she doesn't know what her daughter thinks. SW will call patient's daughter to hopefully get a place to send a referral to. Yaneli BANEGAS
[2020-11-06] MEDS: hydrALAZINE 50 MG Tablet PO (09:34)
[2020-11-06] MEDS: Ceftriaxone 1 GM/50 ML BAG IV (09:34)
[2020-11-06] MEDS: Docusate Sodium 100 MG Capsule PO (09:34)
[2020-11-06] MEDS: Pantoprazole Sodium 40 MG Tablet PO (09:34)
[2020-11-06] MEDS: amLODIPine 10 MG Tablet PO (09:34)
[2020-11-06] MEDS: Citalopram 20 MG Tablet PO (09:34)
[2020-11-06 11:05] LABS: Bedside Glucose 189 mg/dL (70-110)
--- NOTE | 2020-11-06 12:06 | CASEMGMT ---
SW called patient's daughter. SW let her know patient is not sure which facility she wants to go to. She suggested [facility] because she lives right [place] [facility]. She said it is up to her mom though. SW told her SW will check with her to see how she feels about [facility]. 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
--- NOTE | 2020-11-06 12:38 | PN.HOSP_ITS ---
Subjective Subjective Seen and examined. Patient is sleepy. Intermittent confusion and disorientation. 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 Evaluated by PT. Patient just shoulder pain walked few steps and then could not walk further Objective Data Objective Data Vital Signs: Vital Signs Temp Pulse Resp BP Pulse Ox 97.6 F L 88 18 192/70 H 93 11/06/20 09:25 11/06/20 09:34 11/06/20 09:25 11/06/20 09:25 11/06/20 09:25 Oxygen Flow Rate (L/min) 2 Oxygen Delivery Method Room Air Weight: 149 lb 4.047 oz Body Mass Index (BMI) 28.1 Intake & Output: Intake and Output for Last 24 Hours 11/04/20 11/05/20 11/06/20 23:59 23:59 23:59 Intake Total 2543.33 / 2543.33 3203.09 / 3323.09 370 / 370 Output Total 3025 / 3025 2900 / 3050 150 / 150 Balance -481.67 / -481.67 303.09 / 273.09 220 / 220 Medical Nutrition Assessment Dietitian: Nutrition Therapy Diagnosis Start: 11/04/20 11:54 Freq: Status: Active Protocol: Document 11/04/20 12:03 (Rec: 11/04/20 12:03 [id number]) Nutrition Malnutrition Evidence of Malnutrition Exists No Intake Problem Inadequate Oral Intake Etiology r/t mental status, planned procedure Signs/Symptoms as evidenced by no oral intake x 12 hours 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 Dietitian Recommendations/Changes cardiac, 1600 calorie controlled diet when medically indicated. Recommend speech therapy consult to assess appropriate textures/ consistencies given reported poor dentition. Lab / Micro Data Result Diagrams: 11/06/20 05:34 11/06/20 05:34 Labs: Laboratory Results - last 24 hr 11/05/20 16:48: POC Glucose 195 H 11/05/20 21:37: POC Glucose 156 H 11/06/20 05:34: WBC 6.1, RBC 3.31 L, Hgb 8.6 L, Hct 28.8 L, MCV 87.0, MCH 26.0 L , MCHC 29.9 L, RDW Std Deviation 51.6 H, RDW Coeff of Wade 16.1 H, Plt Count 225, MPV 10.2, Immature Gran % (Auto) 2.600 H, Neut % (Auto) 60.2, Lymph % (Auto) 24.7, [place] % (Auto) 8.9, Eos % (Auto) 3.1, Baso % (Auto) 0.5, Absolute Neuts (auto) 3.7, Absolute Lymphs (auto) 1.50, Nucleated RBC % 0 11/06/20 05:34: Sodium 146 H, Potassium 3.6, Chloride 118 H, Carbon Dioxide 18.0 L, Anion Gap 10, BUN 32 H, Creatinine 2.46 H, Estim Creat Clear Calc 15.37, Est GFR (MDRD) Af Amer 25 L, Est GFR (MDRD) Non-Af 20 L, BUN/Creatinine Ratio 13.0, Glucose 164 H, Calcium 7.8 L 11/06/20 06:43: POC Glucose 166 H 11/06/20 10:57: POC Glucose 189 H Micro: Microbiology 11/03/20 16:00 Blood Culture (Wb) - Left Forearm Blood Culture - Preliminary No growth in 48 hours. 11/03/20 15:40 Blood Culture (Wb) - Right Forearm Blood Culture - Preliminary No growth in 48 hours. 11/04/20 08:51 Mucosa - Nose SARS-CoV-2 Antigen (Rapid) - Final Physical Exam Narrative Physical exam General: Sleepy. But she readily wakes up. Oriented x3. HEENT: Atraumatic, PERRLA, EOMI, Normocephalic Oral: No Gingival or Mucosal Lesions/ Ulcerations Neck: Supple, No JVD, Negative Carotid Bruits Lungs: Air entry diminished in bilateral lung bases. No crepitation/rhonchi Cardiovascular: Regular rate, Regular Rhythm, Normal S1, Normal S2, No murmurs Abdomen: Bowel Sounds Present, Soft, Non Tender, Non-Distended : Alexandre removed. Spontaneously voided urine. Mild tenderness over both renal angle. No suprapubic tenderness. Extremities: No edema, Capillary Refill Less than 3 Seconds Skin: No rashes, No breakdown Musculoskeletal: No Tenderness to Palpation of Joints or Extremities Neurological: Cranial nerves II-XII grossly intact, Deep Tendon Reflexes 2+/4 and Symmetrical, Neuro grossly intact Psych/Mental Status: Mild cognitive deficit. Assessment & Plan Assessment/Plan (1) Acute UTI: (2) Renal colic on right side: (3) Acute renal failure: QUALIFIERS: Acute renal failure type: unspecified Qualified Code(s): N17.9 - Acute kidney failure, unspecified (4) Encephalopathy acute: PLAN: 1. Acute complicated upper E. coli UTI with bacteremia with right-sided hydronephrosis: Patient is being admitted in PCU. On IV Rocephin. Alexandre catheter is clear. DC Alexandre catheter. No fever. Patient had cystoscopy with right ureteral stent by Dr. Barton yesterday. CT abdomen pelvis shows modera te right hydronephrosis and ureteral dilatation but no obstructing stone cystoscopy ureteral stricture. 5 mm nonobstructing stone in lower pole of left kidney; unchanged. 11/06: Urine culture was sent yesterday and is pending. Blood culture was positive for E. coli on 10/31. Repeat blood cultures on 11/03 are negative 2. EMANUEL on CKD stage IV: Patient baseline creatinine is around 1.9-2.3. Admitt ed with 4.48, currently 2.65. 11/06: Gradual improvement in creatinine. 3. Metabolic encephalopathy from UTI: Intermittent confused and disoriented. Orientation cues. Avoid benzodiazepines. 4. Diabetes mellitus type 2: Patient hypoglycemic therefore home insulin was held. Accu-Cheks before meals and coverage Humalog sliding scale. 11/06: Blood sugars are elevated between 150?200. 5.: Hypertension and dyslipidemia blood pressure is elevated. Home medications continued with hydralazine as needed for systolic blood pressure more than 180. On a statin 11/06: Blood pressure is still elevated. Hydralazine increased to 100 mg twice daily 6 anemia of chronic kidney disease: Hemoglobin is on baseline: Hemoglobin 8.0 platelet count 216,000. DVT: Heparin Charges/Coding Visit Charges Inpatient E&M: 61076 Subs Hosp L2
--- NOTE | 2020-11-06 13:51 | CASEMGMT ---
Pt qualifies for palliative c/s per [facility] palliative screening tool and Dr. Vargas is agreeable to referral. Order placed and referral faxed to palliative. Giovanni WHALEY CM
--- NOTE | 2020-11-06 15:36 | CASEMGMT ---
SW called [facility] and left a voice mail inquiring if they have made a decision on patient. 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
[2020-11-06 16:46] LABS: Bedside Glucose 175 mg/dL (70-110)
[2020-11-06] MEDS: Insulin Lispro 100 UNIT/ML INSULN.PEN 8 UNIT SC (17:29)
[2020-11-06] MEDS: Atorvastatin Calcium 40 MG Tablet PO (21:45)
[2020-11-06] MEDS: hydrALAZINE 50 MG Tablet 100 MG PO (21:45)
[2020-11-06 22:10] LABS: Bedside Glucose 177 mg/dL (70-110)
[2020-11-07] VITALS (8 sets, daily range): BP systolic 136–158; BP diastolic 43–54; PULSE 85–97; RESP 18; TEMP 36.2–36.9; O2SAT 92–94
[2020-11-07] MEDS: Ondansetron 4 MG/2 ML Vial IV (02:27)
[2020-11-07] MEDS: 0.9% Saline Lock 10 ML Syringe IV ×2 (02:27→04:40)
[2020-11-07] MEDS: LORazepam 2 MG/ML Syringe 0.5 MG IV (04:41)
[2020-11-07] MEDS: Heparin Injection (Vial) 5,000 UNIT/ML VIAL 5000 UNIT SC ×2 (05:07→14:04)
[2020-11-07 05:30] LABS: Absolute Lymphocyte Count 1.43 X10^3/uL (0.83-4.51); Absolute Neutrophil Count 6.3 X10^3/uL (2.0-7.7); Basophil# 0.02 X10^3/uL; Basophil% 0.2 % (0-1); Eosinophil# 0.13 X10^3/uL; Eosinophils% 1.5 % (0-5); Hematocrit 27.3 % (37-47); Hemoglobin 8.3 g/dL (12.0-15.0); Lymphocyte # 1.43 X10^3/ul (0.83-4.51); Lymphocyte % 16.4 % (19-41); Mean Corp Hgb Conc 30.4 g/dL (32-36); Mean Corpuscular Hgb 26.3 pg (27.0-32.0); Mean Corpuscular Volume 86.7 fL (81-99); Mean Platelet Vol. 10.6 fl (6.2-12.0); Monocyte# 0.68 X10^3/uL; Monocyte% 7.8 % (0-10); NRBC Flagged by Analyzer 0 % (0-5); Neutrophil # 6.26 X10^3/uL (2.7-7.7); Neutrophil % 71.6 % (47-70); Platelet Count 235 K/mm3 (150-450); RBC Distribution Width CV 16.3 % (11.6-14.6); RBC Distribution Width SD 51.4 fl (35.1-43.9); Red Blood Count 3.15 M/mm3 (4.2-5.4); White Blood Count 8.7 K/mm3 (4.4-11.0)
[2020-11-07 05:48] LABS: Anion Gap 9 (5-15); BUN 28 mg/dL (7-18); BUN/Creat Ratio 11.9 RATIO (10-20); Calcium,Total 7.8 mg/dL (8.5-10.1); Chloride 115 mmol/L (98-107); Creatinine, Serum 2.35 mg/dL (0.55-1.02); EST Glomerular Filtration Rate 22 mL/min (>60); Est Glom Filt Rate - Afr Amer 26 mL/min (>60); Estimated Creatinine Clearance 16.09 ml/min; Glucose 175 mg/dL (74-106); Potassium 3.4 mmol/L (3.5-5.1); Sodium Level 144 mmol/L (136-145)
--- NOTE | 2020-11-07 07:38 | PCM.PN.GU ---
Subjective Subjective Patient awake and comfortable lying in bed. Alexandre catheter has been removed and she voided this morning. Wearing diaper for incontinence. Reports that her back somewhat hurts, but not bad. No nausea or vomiting. Objective Data Objective Data Vital Signs: Vital Signs Temp Pulse Resp BP Pulse Ox 98.4 F 97 18 153/53 H 92 11/07/20 03:14 11/07/20 03:14 11/07/20 03:14 11/07/20 03:14 11/07/20 03:14 Oxygen Flow Rate (L/min) 2 Oxygen Delivery Method Room Air Weight: 67.7 kg Body Mass Index (BMI) 28.1 Intake & Output: Intake and Output for Last 24 Hours 11/05/20 11/06/20 11/07/20 23:59 23:59 23:59 Intake Total 3203.09 / 3323.09 1170 / 1570 400 / 400 Output Total 2900 / 3050 150 / 150 Balance 303.09 / 273.09 1020 / 1420 400 / 400 Medical Nutrition Assessment Dietitian: Nutrition Therapy Diagnosis Start: 11/04/20 11:54 Freq: Status: Active Protocol: Document 11/06/20 15:20 AG (Rec: 11/06/20 15:20 AG [id number]) Nutrition Malnutrition Evidence of Malnutrition Exists No Intake Problem Inadequate Oral Intake Etiology r/t mental status, refusal of meals Signs/Symptoms as evidenced by refusal of lunch, estimated PO intake meeting <75% of pts nutritional needs 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 Dietitian Recommendations/Changes cardiac, 1600 calorie controlled. Consider Glucerna oral nutrition supplement if pt agreeable - currently refusing. Lab / Micro Data Result Diagrams: 11/07/20 04:44 11/07/20 04:44 Labs: Laboratory Results - last 24 hr 11/06/20 10:57: POC Glucose 189 H 11/06/20 16:39: POC Glucose 175 H 11/06/20 21:43: POC Glucose 177 H 11/07/20 04:44: WBC 8.7, RBC 3.15 L, Hgb 8.3 L, Hct 27.3 L, MCV 86.7, MCH 26.3 L, MCHC 30.4 L, RDW Std Deviation 51.4 H, RDW Coeff of Wade 16.3 H, Plt Count 235, MPV 10.6, Immature Gran % (Auto) 2.500 H, Neut % (Auto) 71.6 H, Lymph % (Auto) 16.4 L, Armstrong % (Auto) 7.8, Eos % (Auto) 1.5, Baso % (Auto) 0.2, Absolute Neuts (auto) 6.3, Absolute Lymphs (auto) 1.43, Nucleated RBC % 0 11/07/20 04:44: Sodium 144, Potassium 3.4 L, Chloride 115 H, Carbon Dioxide 20.0 L, Anion Gap 9, BUN 28 H, Creatinine 2.35 H, Estim Creat Clear Calc 16.09, Est GFR (MDRD) Af Amer 26 L, Est GFR (MDRD) Non-Af 22 L, BUN/Creatinine Ratio 11.9, Glucose 175 H, Calcium 7.8 L Micro: Microbiology 11/05/20 12:50 Urine Catheter - Alexandre Urine Culture - Preliminary Culture exhibits no growth. 11/03/20 16:00 Blood Culture (Wb) - Left Forearm Blood Culture - Preliminary No growth in 48 hours. 11/03/20 15:40 Blood Culture (Wb) - Right Forearm Blood Culture - Preliminary No growth in 48 hours. 11/04/20 08:51 Mucosa - Nose SARS-CoV-2 Antigen (Rapid) - Final Physical Exam Const alert and no apparent distress HEENT normocephalic and head/scalp atraumatic Eyes General Eye: normal appearance of both eyes Neck supple General: trachea midline Lymph Lymphatic: no lymphedema noted Chest inspection of chest normal Chest: symmetrical chest wall rise Resp normal respiratory effort, normal air movement and no retractions Cardio regular rate GI soft to palpation, non-tender and non-distended Narrative: Alexandre catheter removed. No CVA tenderness. Back/Spine no CVA tenderness Extremity normal to inspection Skin no rashes or lesions noted, no wounds and no mottling Neuro CN's II-XII intact bilaterally Psych cooperative Assessment & Plan Assessment/Plan (1) Hydronephrosis: (2) Urinary tract infection with fever: (3) Acute renal failure: QUALIFIERS: Acute renal failure type: unspecified Qualified Code(s): N17.9 - Acute kidney failure, unspecified PLAN: We will check postvoid residual today to make sure that she is not retaining at the bladder outlet. Will eventually need to have cystoscopy with ureteroscopy and further evaluation of her right ureter once creatinine has nadired No further intervention planned during this admission Follow creatinine to araceli Complete antibiotic course for positive cultures
[2020-11-07] MEDS: Ceftriaxone 1 GM/50 ML BAG IV (08:06)
[2020-11-07] MEDS: Insulin Lispro 100 UNIT/ML INSULN.PEN 8 UNIT SC (08:07)
[2020-11-07] MEDS: Insulin Lispro 100 UNIT/ML INSULN.PEN SC (08:07)
[2020-11-07] MEDS: Pantoprazole Sodium 40 MG Tablet PO (08:09)
[2020-11-07] MEDS: amLODIPine 10 MG Tablet PO (08:09)
[2020-11-07] MEDS: hydrALAZINE 50 MG Tablet 100 MG PO (08:09)
[2020-11-07] MEDS: Docusate Sodium 100 MG Capsule PO (08:09)
[2020-11-07] MEDS: Citalopram 20 MG Tablet PO (08:09)
--- NOTE | 2020-11-07 09:20 | PCM.TXEXTCAR ---
Diet 11/04/20 16:16 Diet: Cardiac: Calorie-Controlled Is pt able to select menu?: No Diet Comments: edentolous diet no teeth How many daily calories?: 1600 calorie Routine Orders/Code Status Suppository Type: Dulcolax 10mg Suppository Frequency: Daily PRN Routine Lab Work: CBC, BMP and - (weekly) Wound(s) Rt elbow: Wound Type: Abrasion Therapies Weight Bearing: Weight bearing as tolerated Extremity Affected:: Bilateral Lower Physical Therapy: Eval and Treat Occupational Therapy: Eval and Treat Speech Therapy: Eval and Treat Problem/Diagnosis (1) Hydronephrosis: Status: Acute (2) Urinary tract infection with fever: Status: Acute (3) Acute renal failure: Status: Acute Allergies/Procedures Done in Hospital Allergies blue dye Allergy (Verified 11/03/20 14:12) PASS OUT Type of Care/Length of Stay Estimated LOS: Convalescent Care Less Than 30 days Type of Care Needed: Skilled Rehab Potential: Good Prognosis: Good Additional Orders/Day of Discharge Day of Discharge: 11/07/20 Dietary and Speech Recommendations Dietitian Recommendations/Changes: cardiac, 1600 calorie controlled. Consider Glucerna oral nutrition supplement if pt agreeable - currently refusing. Follow Up Care Please follow up with your Primary Care Physician in: In 1 week Please Follow Up With: Ashlyn Kaminski MD When: In 2 weeks Discharge Plan Admission Admit Date/Time: 11/03/20 16:49 Primary Reason for Your Visit: E. coli bacteremia secondary to complicated E. coli pyelonephritis Attending Provider: Sean Vargas Primary Care Provider: Shawn Almeida Consulting Providers: Ashlyn Kaminski Discharge Orders/Prescriptions Prescriptions: New hydralazine 50 mg Tablet 100 mg PO TID Qty: 90 RF: 0 ciprofloxacin HCl [Cipro] 250 mg tablet 250 mg PO BID Qty: 10 RF: 0 Continued citalopram 20 MG tablet 20 mg PO DAILY RF: 0 atorvastatin 40 MG tablet 40 mg PO DAILY RF: 0 amlodipine 10 MG tablet 10 mg PO DAILY RF: 0 insulin aspart U-100 100 UNITS/ML insulin pen 10 units subcut TIDAC RF: 0 lansoprazole 30 mg Capsule,Delayed Release(Dr/Ec) 30 mg PO DAILY RF: 0 docusate sodium [DOK] 100 MG capsule 100 mg PO DAILY Qty: 20 RF: 0 pregabalin 50 MG capsule 50 mg PO TID Qty: 0 RF: 0 Changed insulin degludec 100 UNIT/ML insulin pen 15 unit SQ DAILY Qty: 0 RF: 0 Discontinued oxybutynin chloride 5 MG tablet extended release 24hr 5 mg PO DAILY RF: 0 hydrochlorothiazide 25 mg Tablet 25 mg PO DAILY RF: 0 Referrals / Follow Up: Shawn Almeida MD [Primary Care Provider] - Disposition Disposition (needs filled in before D/C Order can be placed): [facility]
--- NOTE | 2020-11-07 09:22 | PCM.DC.SUM ---
Providers Date of Admission: 11/03/20 Primary Care Physician: Dr. Shawn Almeida MD Consultations 11/03/20 17:57 Consult: Urology Routine Consulting Provider: Ashlyn Kaminski Reason for Consult: UTI, Hydronephrosis EMERGENT Consult: No MD Notified: Yes Date Notified: 11/03/20 Time Notified: 17:47 Method of Notification: Provider Initiated Comments:: Case discussed with Dr. Kaminski per ER physician Reason For Visit: BACTEREMIA WITH RENAL FAILURE Diagnosis Discharge Diagnosis (1) Hydronephrosis: Status: Acute Code(s): N13.30 - Unspecified hydronephrosis (2) Urinary tract infection with fever: Status: Acute Code(s): N39.0 - Urinary tract infection, site not specified (3) Acute renal failure: Status: Acute Code(s): N17.9 - Acute kidney failure, unspecified Qualifiers: Acute renal failure type: unspecified Qualified Code(s): N17.9 - Acute kidney failure, unspecified Medications at Discharge Home Medications citalopram 20 mg PO DAILY 07/10/14 amlodipine 10 mg PO DAILY 06/05/18 atorvastatin 40 mg PO DAILY 06/05/18 insulin aspart U-100 10 units SUBCUT TIDAC 08/04/19 lansoprazole 30 mg PO DAILY 11/03/20 ciprofloxacin HCl [Cipro] 250 mg PO BID #10 tab 11/07/20 docusate sodium [DOK] 100 mg PO DAILY #20 capsule 11/07/20 hydralazine 100 mg PO TID #90 tab 11/07/20 insulin degludec 15 unit SQ DAILY #0 ml 11/07/20 pregabalin 50 mg PO TID #0 cap 11/07/20 Hospital Course Summary of Care Provided Hospital Course: This is 75-year-old female was admitted through ER for altered mental status and hypoglycemia. Patient also has distal right, glucose 58 ureteral stone and found to have right hydronephrosis, ureteral dilatation secondary to obstructing stone with ureteric stricture on CT abdomen consistent with complicated upper UTI 1. Acute complicated upper E. coli UTI with bacteremia with right-sided hydronephrosis and right ureteric stricture with proximal dilatation: Patient is being admitted in PCU. On IV Rocephin. Alexandre catheter is clear. DC Alexandre catheter. No fever. Patient had cystoscopy with right ureteral stent by Dr. Kaminski . Blood culture and urine culture on 10/31 was positive for E. coli. Repeat blood culture on 11/03 and urine culture shows no growth. During hospital course patient on ceftriaxone and discharged on Cipro to complete a total of 10 days 2. EMANUEL on CKD stage IV: Patient baseline creatinine is around 1.9-2.3. Admitted with 4.48, currently 2.35. 3. Metabolic encephalopathy from UTI: The patient had intermittent confused and disoriented. Orientation cues. Avoid benzodiazepines. Acute encephalopathy resolved. 4. Diabetes mellitus type 2: Patient hypoglycemic therefore home insulin was held. Accu-Cheks before meals and coverage Humalog sliding scale. Patient blood sugar is controlled. Hypoglycemia resolved. 5.: Hypertension and dyslipidemia blood pressure is elevated. Home medications continued with hydralazine as needed for systolic blood pressure more than 180. On a statin 11/06: Blood pressure is still elevated. Hydralazine was increased to 100 mg twice daily and is controlled 6 anemia of chronic kidney disease: Hemoglobin is on baseline: Hemoglobin 8.0 platelet count 216,000. DVT: Heparin Discharge medication reconciliation done. Discharge follow-up instructions completed. Discharge process discussed with the patient and all questions were answered to patient's satisfaction. Discharged to SNF Total time spent, exact 35 minutes on discharge meds reconciliation, examination, coordination of care with nurses and ancillary staff, review of imaging and blood test and discussion with the patient on follow-up instructions Physical Exam Narrative Physical exam General: Awake and alert. Oriented x3. HEENT: Atraumatic, PERRLA, EOMI, Normocephalic Oral: No Gingival or Mucosal Lesions/ Ulcerations Neck: Supple, No JVD, Negative Carotid Bruits Lungs: Air entry diminished in bilateral lung bases. No crepitation/rhonchi Cardiovascular: Regular rate, Regular Rhythm, Normal S1, Normal S2, No murmurs Abdomen: Bowel Sounds Present, Soft, Non Tender, Non-Distended : Alexandre removed. Spontaneously voided urine. No tenderness or bilateral renal angle. No suprapubic tenderness. Extremities: No edema, Capillary Refill Less than 3 Seconds Skin: No rashes, No breakdown Musculoskeletal: No Tenderness to Palpation of Joints or Extremities Neurological: Cranial nerves II-XII grossly intact, Deep Tendon Reflexes 2+/4 and Symmetrical, Neuro grossly intact Psych/Mental Status: Mild cognitive deficit. Medical Records Data Medical Nutrition Assessment Dietitian: Nutrition Therapy Diagnosis Start: 11/04/20 11:54 Freq: Status: Active Protocol: Document 11/06/20 15:20 AG (Rec: 11/06/20 15:20 AG [id number]) Nutrition Malnutrition Evidence of Malnutrition Exists No Intake Problem Inadequate Oral Intake Etiology r/t mental status, refusal of meals Signs/Symptoms as evidenced by refusal of lunch, estimated PO intake meeting <75% of pts nutritional needs 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 Dietitian Recommendations/Changes cardiac, 1600 calorie controlled. Consider Glucerna oral nutrition supplement if pt agreeable - currently refusing. Weight / BMI Weight Weight: 149 lb 4.047 oz Body Mass Index (BMI) 28.1 ABG / Lab / Microbiology Data Result Diagrams: 11/07/20 04:44 11/07/20 04:44 Laboratory: Laboratory Results - last 24 hr 11/06/20 10:57: POC Glucose 189 H 11/06/20 16:39: POC Glucose 175 H 11/06/20 21:43: POC Glucose 177 H 11/07/20 04:44: WBC 8.7, RBC 3.15 L, Hgb 8.3 L, Hct 27.3 L, MCV 86.7, MCH 26.3 L, MCHC 30.4 L, RDW Std Deviation 51.4 H, RDW Coeff of Wade 16.3 H, Plt Count 235, MPV 10.6, Immature Gran % (Auto) 2.500 H, Neut % (Auto) 71.6 H, Lymph % (Auto) 16.4 L, Jennings % (Auto) 7.8, Eos % (Auto) 1.5, Baso % (Auto) 0.2, Absolute Neuts (auto) 6.3, Absolute Lymphs (auto) 1.43, Nucleated RBC % 0 11/07/20 04:44: Sodium 144, Potassium 3.4 L, Chloride 115 H, Carbon Dioxide 20.0 L, Anion Gap 9, BUN 28 H, Creatinine 2.35 H, Estim Creat Clear Calc 16.09, Est GFR (MDRD) Af Amer 26 L, Est GFR (MDRD) Non-Af 22 L, BUN/Creatinine Ratio 11.9, Glucose 175 H, Calcium 7.8 L Microbiology: Microbiology 11/05/20 12:50 Urine Catheter - Alexandre Urine Culture - Preliminary Culture exhibits no growth. 11/03/20 16:00 Blood Culture (Wb) - Left Forearm Blood Culture - Preliminary No growth in 48 hours. 11/03/20 15:40 Blood Culture (Wb) - Right Forearm Blood Culture - Preliminary No growth in 48 hours. 11/04/20 08:51 Mucosa - Nose SARS-CoV-2 Antigen (Rapid) - Final Meaningful Use Info Meaningful Use Diagnoses (Choose all that apply): None applicable Discharge Plan Admission Admit Date/Time: 11/03/20 16:49 Primary Reason for Your Visit: E. coli bacteremia secondary to complicated E. coli pyelonephritis Attending Provider: Sean Vargas Primary Care Provider: Shawn Almeida Consulting Providers: Ashlyn Kaminski Discharge Orders/Prescriptions Prescriptions: New hydralazine 50 mg Tablet 100 mg PO TID Qty: 90 RF: 0 ciprofloxacin HCl [Cipro] 250 mg tablet 250 mg PO BID Qty: 10 RF: 0 Continued citalopram 20 MG tablet 20 mg PO DAILY RF: 0 atorvastatin 40 MG tablet 40 mg PO DAILY RF: 0 amlodipine 10 MG tablet 10 mg PO DAILY RF: 0 insulin aspart U-100 100 UNITS/ML insulin pen 10 units subcut TIDAC RF: 0 lansoprazole 30 mg Capsule,Delayed Release(Dr/Ec) 30 mg PO DAILY RF: 0 docusate sodium [DOK] 100 MG capsule 100 mg PO DAILY Qty: 20 RF: 0 pregabalin 50 MG capsule 50 mg PO TID Qty: 0 RF: 0 Changed insulin degludec 100 UNIT/ML insulin pen 15 unit SQ DAILY Qty: 0 RF: 0 Discontinued oxybutynin chloride 5 MG tablet extended release 24hr 5 mg PO DAILY RF: 0 hydrochlorothiazide 25 mg Tablet 25 mg PO DAILY RF: 0 Referrals / Follow Up: Shawn Almeida MD [Primary Care Provider] - Disposition Disposition (needs filled in before D/C Order can be placed): [facility] Charges/Coding Visit Charges Inpatient E&M: 90079 Disch Hosp
--- NOTE | 2020-11-07 10:51 | CASEMGMT ---
SARAH spoke with Stephanie at [facility] and they can take patient. SARAH faxed all necessary information to [facility] to obtain a level of care since patient has straight Medicaid. Await level of care. SARAH will let patient and her daughter know that [facility] can take her and she will likely go today. Plan: d/c to [facility] under intermediate level of care pending level of care from [facility]. Yaneli Ward RN MDS BASSAM
--- NOTE | 2020-11-07 11:03 | CASEMGMT ---
SARAH let patient know that [facility] can take her and she will go today. SARAH attempted to call her daughter, but she did not answer and her voice mail is full. Yaneli Ward UTILITY SPRAY OPERATOR BASSAM
[2020-11-07 11:20] LABS: Bedside Glucose 158 mg/dL (70-110)
--- NOTE | 2020-11-07 11:21 | CASEMGMT ---
Addendum entered by Yaneli Ward 11/07/20 11:56: SARAH called Isela Desai with [facility] and left her a message letting her know patient will be going to [facility] today. SW will fax d/c instructions. Yaneli BANEGAS Original Note: SW received a call from patient's daughter. SW let her know that [facility] can take patient and she will go today. SW let her know SW is waiting on paperwork from [facility]. SW did let her know over last conversation that wherever patient goes she will have to quarantine for 10-14 days since she is not vaccinated. SW let her know she will have to schedule visits. Yaneli BANEGAS
[2020-11-07 11:41] LABS: Bedside Glucose 100 mg/dL (70-110)
--- NOTE | 2020-11-07 14:10 | CASEMGMT ---
SARAH faxed orders and negative COVID to [facility]. SARAH arranged for patient to get picked up at [facility] via [facility] van. SARAH notified RN, school secretary, patient and left a message for Stephanie at [facility]. Plan: d/c to [facility] under intermediate level of care. [facility] will transport via [facility] van. Yaneli Ward DIETARY ASSISTANT BASSAM
== END 2020-11-07 15:51 | disposition skilled nursing facility (03) | DRG 463 ==
LOC: ED 15:18 → PCU 18:04
PROVIDERS: Anesthesiology; Urology; Admitting Provider Family Medicine; Emergency Provider Emergency Medicine; PCP Family Medicine; Visit Provider Internal Medicine
PROC: 0T768DZ Dilation of Right Ureter with Intraluminal Device, Via Natural or Artificial Opening Endoscopic (ICD-10-PCS; CPT 52332; principal; 2020-11-04 14:10)
DX: N13.6 Pyonephrosis (principal); N17.9 Acute kidney failure, unspecified; G93.41 Metabolic encephalopathy; I12.9 Hypertensive chronic kidney disease with stage 1 through stage 4 chronic kidney disease, or unspecified chronic kidney disease; E11.22 Type 2 diabetes mellitus with diabetic chronic kidney disease; N18.4 Chronic kidney disease, stage 4 (severe); E11.649 Type 2 diabetes mellitus with hypoglycemia without coma; B96.20 Unspecified Escherichia coli [E. coli] as the cause of diseases classified elsewhere; F32.9 Major depressive disorder, single episode, unspecified; Z79.899 Other long term (current) drug therapy; Z79.4 Long term (current) use of insulin; N81.6 Rectocele; E78.5 Hyperlipidemia, unspecified; D63.1 Anemia in chronic kidney disease
CPT/HCPCS: 36415; 51702; 70450; 71045; 74176; 76000; 80048; 80053; 80307; 81001; 82077; 82962; 83036; 83605; 84484; 85025; 85610; 85730; 87040; 87086; 87088; 87186; 87426; 93005; 96365; 96375; 96376; 97110; 97116; 97162; 97166; 97530; 97535; 97802; 97803; 99284; 99285; J7030; J7050; P9612; A4216; C2625; J2405

== ENCOUNTER 2020-12-02 01:51 | Emergency (ER) | payer MEDICAID, SELFPAY ==
[2020-12-02 01:53] VITALS: BP 153/64; PULSE 58; RESP 16; TEMP 36.6; O2SAT 98; BMI 26.0
[2020-12-02 02:06] VITALS: TEMP 36.6; BMI 26.0
--- NOTE | 2020-12-02 02:24 | EX.ED.DYSGE1 ---
HPI History of Present Illness Chief Complaint: Hypoglycemia [facility] Medical History Chronic kidney disease, stage 3b Depression Diabetes High cholesterol Hydronephrosis Hypertension Pyelonephritis Uncontrolled type 2 diabetes mellitus Home Medications citalopram 20 mg PO DAILY 07/10/14 [History Last Taken 08/04/19] amlodipine 10 mg PO DAILY 06/05/18 [History Last Taken 08/04/19] atorvastatin 40 mg PO DAILY 06/05/18 [History Last Taken 08/04/19] insulin aspart U-100 10 units SUBCUT TIDAC 08/04/19 [History Last Taken 08/04/19] lansoprazole 30 mg PO DAILY 11/03/20 [History Last Taken Unknown] ciprofloxacin HCl [Cipro] 250 mg PO BID #10 tab 11/07/20 [Rx Last Taken Unknown] docusate sodium [DOK] 100 mg PO DAILY #20 capsule 11/07/20 [Rx Last Taken 08/04/19] hydralazine 100 mg PO TID #90 tab 11/07/20 [Rx Last Taken Unknown] insulin degludec 15 unit SQ DAILY #0 ml 11/07/20 [Rx Last Taken 08/04/19] pregabalin 50 mg PO TID #0 cap 11/07/20 [Rx Last Taken 08/04/19] Allergy/AdvReac Type Severity Reaction Status Date / Time blue dye Allergy PASS OUT Verified 12/02/20 01:56 Surgical History H/O: hysterectomy History of cholecystectomy Social History Smoking Status: Never smoker substance use type: does not use EXAM Physical Exam Const Vital Signs: 12/02/20 01:53 12/02/20 02:06 Temperature 98 F 98 F Temperature Source Temporal Pulse Rate 58 L Respiratory Rate 16 Blood Pressure 153/64 H Blood Pressure Mean 93 Pulse Ox 98 Oxygen Delivery Method Room Air Discharge Plan Triage Chief Complaint: Hypoglycemia Other Complaint: Alt LOC ED Provider: Israel Shin Dx/Rx/DC Orders Prescriptions: No Action citalopram 20 MG tablet 20 mg PO DAILY RF: 0 atorvastatin 40 MG tablet 40 mg PO DAILY RF: 0 amlodipine 10 MG tablet 10 mg PO DAILY RF: 0 insulin aspart U-100 100 UNITS/ML insulin pen 10 units subcut TIDAC RF: 0 lansoprazole 30 mg Capsule,Delayed Release(Dr/Ec) 30 mg PO DAILY RF: 0 hydralazine 50 mg Tablet 100 mg PO TID Qty: 90 RF: 0 ciprofloxacin HCl [Cipro] 250 mg tablet 250 mg PO BID Qty: 10 RF: 0 docusate sodium [DOK] 100 MG capsule 100 mg PO DAILY Qty: 20 RF: 0 pregabalin 50 MG capsule 50 mg PO TID Qty: 0 RF: 0 insulin degludec 100 UNIT/ML insulin pen 15 unit SQ DAILY Qty: 0 RF: 0 Primary Care Provider: Shawn Almeida
[2020-12-02 02:25] LABS: Bedside Glucose 160 mg/dL (70-110)
--- NOTE | 2020-12-02 02:26 | EDS_ITS ---
HPI History of Present Illness Chief Complaint: Hypoglycemia Informant: patient Narrative Narrative: Patient presents after hypoglycemic episode. She states her sugar dropped. She has not been eating and drinking as much because she gets nausea and occasional vomiting ever since she had kidney stone removal 2 weeks ago. She states the pain is completely gone. She denies dysuria or frequency. She states she just gets nauseated some days and so she some days she does not eat as much. She only had a cup of broth or chicken soup today. She denies pain in her abdomen. She denies fevers or chills. Patient does not want an evaluation here. She is awake she is alert she is appropriate. She states she has been in the hospital a lot recently. She wants to go home. She has a friend that is watching her. I did offer some food and Zofran here. She did reluctantly agree to this. My concern is that she has had nausea and vomiting with decreased p.o. intake after having surgery. I would like to make sure that the electrolytes and urine are good and she can tolerate p.o. However, she does not want an evaluation. She has the capacity to make her own decisions. [facility] Medical History Chronic kidney disease, stage 3b Depression Diabetes High cholesterol Hydronephrosis Hypertension Pyelonephritis Uncontrolled type 2 diabetes mellitus Home Medications citalopram 20 mg PO DAILY 07/10/14 [History Last Taken 08/04/19] amlodipine 10 mg PO DAILY 06/05/18 [History Last Taken 08/04/19] atorvastatin 40 mg PO DAILY 06/05/18 [History Last Taken 08/04/19] insulin aspart U-100 10 units SUBCUT TIDAC 08/04/19 [History Last Taken 08/04/19] lansoprazole 30 mg PO DAILY 11/03/20 [History Last Taken Unknown] ciprofloxacin HCl [Cipro] 250 mg PO BID #10 tab 11/07/20 [Rx Last Taken Unknown] docusate sodium [DOK] 100 mg PO DAILY #20 capsule 11/07/20 [Rx Last Taken ] hydralazine 100 mg PO TID #90 tab 11/07/20 [Rx Last Taken Unknown] insulin degludec 15 unit SQ DAILY #0 ml 11/07/20 [Rx Last Taken 08/04/19] pregabalin 50 mg PO TID #0 cap 11/07/20 [Rx Last Taken 08/04/19] ondansetron 4 mg PO TID PRN 3 Days #10 tab 12/02/20 [Rx Last Taken Unknown] Allergy/AdvReac Type Severity Reaction Status Date / Time blue dye Allergy PASS OUT Verified 12/02/20 01:56 Surgical History H/O: hysterectomy History of cholecystectomy Social History Smoking Status: Never smoker substance use type: does not use ROS ROS ED Constitutional Constitutional ED: Denies chills or fever(s) Eyes Eyes: Denies blurry vision ENT ENT ED: Denies sore throat Cardiovascular Cardiovascular: Denies chest pain or palpitations Respiratory/Chest Respiratory/Chest: Denies cough or dyspnea Gastrointestinal Gastrointestinal: Reports nausea, vomiting and other Details: Intermittent nausea and vomiting. ; Denies abdominal pain, constipation, diarrhea or melena Genitourinary Genitourinary ED: Denies dysuria or hematuria Musculoskeletal Musculoskeletal: Denies back pain Integumentary Denies rash Neurologic Neurologic: Denies headache(s) Endocrine Endocrinology: Denies polydipsia or polyuria EXAM Physical Exam Const Vital Signs: 12/02/20 06:33 12/02/20 11:12 Pulse Rate 81 81 Respiratory Rate 16 16 Blood Pressure 134/79 H 138/79 H Blood Pressure Mean 97 Pulse Ox 99 97 Positive well nourished and well developed General Appearance ED: well developed and NAD; Negative for cyanotic or diaphoretic HEENT Reports moist mucous membranes; Denies dry mucous membranes Negative for trauma or tenderness Mouth ED: No dry mucous membranes Mouth: No dry mucous membranes Eyes PERRL Chest Wall inspection of chest normal Resp normal respiratory effort and clear to auscultation bilaterally Cardio regular rate and regular rhythm GI normal to inspection, nondistended, normoactive bowel sounds, non-tender and non-distended Palpation: soft Back/Spine no CVA tenderness Extremity normal to inspection General Extremety ED: Negative for tenderness Neuro oriented x3 Sensorium / Orientation: alert Psych mental status grossly normal Skin no rashes or lesions noted MDM MDM MDM Narrative Medical decision making narrative: Patient's recheck. She states her nausea is gone. She has eaten some food. She is wide awake and alert. She still states she does not want to be worked up. She feels fine. She is comfortable going home. I did offer to give her some meds for nausea in case she has issues with that. I explained to her that I was concerned because she was recently in the hospital with an infection and had the stent placed. If she was rather ill. I do not want her to get that way again. However, patient does not want work-up because she feels fine. She has capacity to make her own decisions. Lab Data Labs: Laboratory Results - last 24 hr 12/02/20 12/02/20 01:55 04:10 POC Glucose 160 H 145 H Discharge Plan Triage Chief Complaint: Hypoglycemia Other Complaint: Alt LOC ED Provider: Israel Shin Dx/Rx/DC Orders Clinical Impression: Hypoglycemia, Nausea Instructions: Hypoglycemia (Low Blood Sugar), Nausea Vomit Control Prescriptions: New ondansetron 4 mg tablet,disintegrating 4 mg PO TID PRN (Reason: nausea and vomiting) 3 Days Qty: 10 RF: 0 No Action citalopram 20 MG tablet 20 mg PO DAILY RF: 0 atorvastatin 40 MG tablet 40 mg PO DAILY RF: 0 amlodipine 10 MG tablet 10 mg PO DAILY RF: 0 insulin aspart U-100 100 UNITS/ML insulin pen 10 units subcut TIDAC RF: 0 lansoprazole 30 mg Capsule,Delayed Release(Dr/Ec) 30 mg PO DAILY RF: 0 hydralazine 50 mg Tablet 100 mg PO TID Qty: 90 RF: 0 ciprofloxacin HCl [Cipro] 250 mg tablet 250 mg PO BID Qty: 10 RF: 0 docusate sodium [DOK] 100 MG capsule 100 mg PO DAILY Qty: 20 RF: 0 pregabalin 50 MG capsule 50 mg PO TID Qty: 0 RF: 0 insulin degludec 100 UNIT/ML insulin pen 15 unit SQ DAILY Qty: 0 RF: 0 Primary Care Provider: Shawn Almeida Referrals: Shawn Almeida MD [Primary Care Provider] - Disposition Disposition: Home, Self Care Discharge Date/Time: 12/02/20 11:14
[2020-12-02] MEDS: Ondansetron 4 MG/2 ML Vial IV (02:37)
--- NOTE | 2020-12-02 03:32 | ED.RN ---
PT GIVEN ORANGE JUICE AND ROSSANA CRACKERS
[2020-12-02 04:17] LABS: Bedside Glucose 145 mg/dL (70-110)
--- NOTE | 2020-12-02 05:47 | ED.RN ---
ATTEMPTED TO CONTACT DAUGHTER AND SON
--- NOTE | 2020-12-02 06:32 | ED.RN ---
ATTEMPTED TO CONTACT PT DAUGHTER
[2020-12-02 06:33] VITALS: BP 134/79; PULSE 81; RESP 16; O2SAT 99
--- NOTE | 2020-12-02 06:40 | ED.RN ---
ATTEMPTED TO CONTACT PT SON.
--- NOTE | 2020-12-02 08:18 | ED.RN ---
Left message for son Tres.
--- NOTE | 2020-12-02 09:12 | ED.RN ---
Son to come pick pt up. Approx 10:30
[2020-12-02 11:12] VITALS: BP 138/79; PULSE 81; RESP 16; O2SAT 97
== END 2020-12-02 11:14 | disposition home or self-care (01) ==
LOC: ED 02:57
PROVIDERS: Emergency Provider Emergency Medicine; PCP Family Medicine
DX: E11.649 Type 2 diabetes mellitus with hypoglycemia without coma (principal); E11.22 Type 2 diabetes mellitus with diabetic chronic kidney disease; N18.32 Chronic kidney disease, stage 3b; I12.9 Hypertensive chronic kidney disease with stage 1 through stage 4 chronic kidney disease, or unspecified chronic kidney disease; F32.9 Major depressive disorder, single episode, unspecified; E78.00 Pure hypercholesterolemia, unspecified; Z79.4 Long term (current) use of insulin; Z79.899 Other long term (current) drug therapy
CPT/HCPCS: 82962; 96374; 99285; A4216; J2405

== ENCOUNTER 2020-12-22 08:32 | Day surgery (SDC) | payer MEDICAID, SELFPAY ==
--- NOTE | 2020-12-17 12:50 | NURSING ---
During phone call to pt for PAT interview, pt did not know medications and seemed unable to follow through with answering questions; disconnected thoughts. Pt was able to give her dgtr's telephone number to this RN. PAT interview with pt's dgtr Brandi Cook. Brandi brown of all of pt's meds. PAT interview completed.
[2020-12-22] VITALS (9 sets, daily range): BP systolic 101–147; BP diastolic 48–87; PULSE 62–78; RESP 16–18; TEMP 36.4–36.7; O2SAT 92–99; BMI 24.4
[2020-12-22] MEDS: Lactated Ringers 1,000 ML 100 ML IV (09:06)
--- NOTE | 2020-12-22 09:12 | PCM.DC ---
Discharge Instructions Diet Discharge Diet: No restrictions Activity Discharge Activity: Return to Normal Activity Dressing / Incision Call your doctor if you observe: Fever of 101 or Higher, Inability to urinate, Inability to have a bowel movement and Uncontrolled pain Follow Up Care Please Follow Up With: Ashlyn Kaminski MD When: call office for appt Test Results: Test results from this visit will be discussed in further detail at your follow-up appointment, if applicable. Discharge Plan Admission Attending Provider: Ashlyn Kaminski Primary Care Provider: Shawn Almeida Discharge Orders/Prescriptions Prescriptions: Continued atorvastatin 40 MG tablet 40 mg PO DAILY RF: 0 amlodipine 10 MG tablet 10 mg PO DAILY RF: 0 insulin aspart U-100 100 UNITS/ML insulin pen 10 units subcut TIDAC RF: 0 lansoprazole 30 mg Capsule,Delayed Release(Dr/Ec) 30 mg PO DAILY RF: 0 pregabalin 50 MG capsule 50 mg PO TID Qty: 0 RF: 0 insulin degludec 100 UNIT/ML insulin pen 15 unit SQ DAILY Qty: 0 RF: 0 hydralazine 50 mg tablet 100 mg PO TID RF: 0 docusate sodium [DOK] 100 MG capsule 100 mg PO DAILY RF: 0 ondansetron 4 mg tablet,disintegrating 4 mg PO TID PRN (Reason: nausea and vomiting) 3 Days Qty: 10 RF: 0 Referrals / Follow Up: Shawn Almeida MD [Primary Care Provider] - Disposition Disposition (needs filled in before D/C Order can be placed): Home, Self Care
--- NOTE | 2020-12-22 09:14 | PCM.OPRPT ---
Problems Associated Problem List Diagnoses (1) Hydronephrosis: Report of Operation Date of Procedure: 12/22/20 Pre-Operative Diagnosis: Right hydronephrosis Post-Operative Diagnosis: Same Surgery/Procedure Performed:: Cystoscopy, right ureteroscopy, Basket extraction of debris, right ureteral stent Change Surgeon: Ashlyn Kaminski Type of Anesthesia: General Description of Procedure: The patient is a 75-year-old female who previously developed a complex urinary tract infection and right sided hydronephrosis for which she underwent a right ureteral stent insertion. She now presents for further evaluation of her hydronephrosis. Informed consent was obtained. The patient was taken to the operating room and placed on the operating room table. Anesthesia monitored the head, neck, airway, IV access and vital signs throughout the case. Once anesthesia was appropriately administered, the patient was placed into dorsal lithotomy position was prepped and draped in usual sterile fashion. The cystoscope was inserted through the urethra under direct visualization into the urinary bladder. There were no masses lesions or abnormalities identified. The ureteral stent was observed. A 0.038 Glidewire was passed alongside the stent and curled into the renal pelvis is seen on fluoroscopy. The stent was grasped with graspers and brought to the urethral meatus where a 0.035 Glidewire was inserted through the stent with positioning into the renal pelvis as well. The flexible ureteroscope was then passed over the 0.038 Glidewire and easily achieved access into the renal pelvis. There was a significant piece of mucus debris noted in the renal pelvis which was basket retrieved. The remainder of the ureteroscopy revealed no evidence of stone, tumor, erythema or abnormality. At this time the safety wire was used to replace the 6 [place] 22 cm JJ stent. The patient's bladder was then emptied and the case was terminated. The patient was taken to the recovery room in good condition. There were no complications during this procedure. Grafts/Implants Used: 6 x 22 JJ stent Complications None Admit VTE Documentation VTE Present on Admission: Yes VTE Mechan Device Prophylaxis: SCD's VTE Pharm Prophylaxis ordered?: No Reason prophylaxis not ordered:: Treatment Not Indicated
[2020-12-22] MEDS: Cefazolin 2 GM in 0.9% Normal Saline 100 ML IV (09:41)
[2020-12-22 10:40] LABS: Bedside Glucose 332 mg/dL (70-110)
[2020-12-22 11:35] LABS: Bedside Glucose 317 mg/dL (70-110)
--- NOTE | 2020-12-22 13:28 | SUR.PHASEII ---
pt. unable to void, pt. bladder scanned for [address] barron notified and said can discharge.
[2020-12-22 16:05] LABS: Bedside Glucose 387 mg/dL (70-110)
== END 2020-12-22 13:52 | disposition home or self-care (01) ==
LOC: SDC 08:33 → AC 08:33
PROVIDERS: PCP Family Medicine; Referring Provider Urology; Visit Provider Urology
PROC: 0TJ98ZZ Inspection of Ureter, Via Natural or Artificial Opening Endoscopic (ICD-10-PCS; CPT 52352; principal; 2020-12-22 09:55)
DX: N13.39 Other hydronephrosis (principal); Z87.440 Personal history of urinary (tract) infections; E78.00 Pure hypercholesterolemia, unspecified; F32.9 Major depressive disorder, single episode, unspecified; N18.30 Chronic kidney disease, stage 3 unspecified; I12.9 Hypertensive chronic kidney disease with stage 1 through stage 4 chronic kidney disease, or unspecified chronic kidney disease; E11.22 Type 2 diabetes mellitus with diabetic chronic kidney disease; Z79.899 Other long term (current) drug therapy; Z79.4 Long term (current) use of insulin; K21.9 Gastro-esophageal reflux disease without esophagitis
CPT/HCPCS: 00910; 52332; 52351; 76000; 82962; 87426; C9803; J7120; C1769; C2625; J2405

== ENCOUNTER 2021-01-13 17:09 | Inpatient (IN) | payer MEDICAID, SELFPAY ==
[2021-01-13 17:10] VITALS: BP 170/62; PULSE 99; RESP 16; TEMP 36.3; O2SAT 95; BMI 28.9
--- NOTE | 2021-01-13 17:31 | CT_ITS ---
INDICATION: Pain-left flank EXAMINATION: CT Abdomen And Pelvis W/O Contrast Injection TECHNIQUE: Helically acquired images were obtained of the abdomen and pelvis without the use of IV contrast. A radiation dose optimization technique was used for this scan. Oral contrast: None. COMPARISON: 05/06/2020 FINDINGS: Evaluation of the solid organs and vascular structures is limited without intravenous contrast. Visualized lung bases: Unremarkable Liver: Unremarkable Gallbladder: Surgically absent. Spleen: Unremarkable Pancreas: Unremarkable Adrenal Glands: Unremarkable Kidneys: Obstructing 2 mm stone in the left distal ureter with associated minimal left hydroureteronephrosis. Additional 7 mm nonobstructing stone in the superior pole left kidney. There is a nephroureteral stent on the right. Vasculature: Moderate aortoiliac atherosclerotic disease. GI Tract: Unremarkable Lymphadenopathy: None Peritoneum: No ascites. Bladder: Unremarkable Reproductive organs: Status post hysterectomy. Bones/Soft tissues: There are diffuse degenerative changes of the spine. Grade 1 [address]hesis L4 on L5. CT/Abdomen/Pelvis without Cont IMPRESSION: Obstructing 2 mm stone in the left distal ureter with associated minimal left hydroureteronephrosis. Additional 7 mm nonobstructing stone in the superior pole left kidney. Grade 1 anterolisthesis L4 on L5. Electronically Signed: Bobo Suarez MD at 18:36 EDT Tel , Service support ,
--- NOTE | 2021-01-13 17:32 | EDS_ITS ---
HPI HPI - GI History of Present Illness Chief Complaint: Flank Pain Abdominal Pain/Flank Pain Onset: Today Context: Sudden Onset Timing: Continuous Quality: Stabbing Location: LLQ and Left Flank Worsened by: Nothing Relieved by: Nothing Nausea/Vomiting/Emesis GI Symptom: Positive for Nausea and Vomiting Quality: Negative for Coffee ground and Hematemesis Diarrhea/Melena/Hematochezia GI Symptom: Negative for Diarrhea, Melena and Hematochezia Narrative Narrative: Patient presents with left flank pain and left lower quadrant abdominal pain that began today. Patient states it is gradually getting worse. Patient describes her pain as stabbing. Patient states the pain is constant. Patient states nothing makes it better and nothing makes it worse. Patient admits to some nausea and vomiting. Patient denies any hematemesis or coffee- ground emesis. Patient denies any diarrhea, melena, or hematochezia. Patient admits to some mild dysuria but denies any frequency or hematuria. Patient admits to subjective fevers and chills. Patient states her pain feels similar t o the pain she had with prior kidney stones. PFSH [facility] Medical History Chronic kidney disease, stage 3b Cognitive decline Depression Diabetes Gastric reflux High cholesterol Hydronephrosis Hypertension Injury of back Non-smoker Pyelonephritis Shortness of breath on exertion Uncontrolled type 2 diabetes mellitus Uses wheelchair Home Medications amlodipine 10 mg PO DAILY 06/05/18 [History Last Taken 08/04/19] atorvastatin 40 mg PO DAILY 06/05/18 [History Last Taken 08/04/19] insulin aspart U-100 10 units SUBCUT TIDAC 08/04/19 [History Last Taken 08/04/19] lansoprazole 30 mg PO DAILY 11/03/20 [History Last Taken Unknown] insulin degludec 15 unit SQ DAILY #0 ml 11/07/20 [Rx Last Taken 08/04/19] pregabalin 50 mg PO TID #0 cap 11/07/20 [Rx Last Taken 08/04/19] ondansetron 4 mg PO TID PRN 3 Days #10 tab 12/02/20 [Rx Last Taken Unknown] docusate sodium [DOK] 100 mg PO DAILY 12/17/20 [History Last Taken Unknown] hydralazine 100 mg PO TID 12/17/20 [History Last Taken Unknown] amoxicillin-pot clavulanate 875 mg PO Q12H #20 tablet 01/13/21 [Rx Last Taken Unknown] Allergy/AdvReac Type Severity Reaction Status Date / Time blue dye Allergy PASS OUT Verified 01/13/21 17:30 Surgical History H/O: hysterectomy History of cholecystectomy History of cystoscopy Social History Smoking Status: Never smoker substance use type: does not use ROS ROS ED Constitutional Constitutional ED: Reports chills, fever(s) and subjective Eyes Eyes: Denies blurry vision or change in vision ENT ENT ED: Denies rhinorrhea or sore throat Cardiovascular Cardiovascular: Denies chest pain or palpitations Respiratory/Chest Respiratory/Chest: Denies cough or dyspnea Gastrointestinal Gastrointestinal: Reports abdominal pain, nausea and vomiting; Denies diarrhea Genitourinary Genitourinary ED: Reports dysuria; Denies hematuria Musculoskeletal Musculoskeletal: Denies back pain or neck pain Integumentary Denies abscess or rash Neurologic Neurologic: Denies headache(s) or weakness Allergic/Immunologic Allergic/Immunologic ED: Denies mouth swelling or urticaria EXAM Physical Exam Const Vital Signs: 01/13/21 17:10 01/13/21 19:45 01/13/21 21:15 Temperature 97.4 F L Temperature Source Temporal Pulse Rate 99 Respiratory Rate 16 Blood Pressure 170/62 H 145/60 H 160/67 H Blood Pressure Mean 98 88 98 Pulse Ox 95 93 93 Oxygen Delivery Method Room Air Room Air Oxygen Flow Rate (L/min) 01/13/21 22:05 01/13/21 23:06 Temperature 101.4 F H Temperature Source Oral Pulse Rate 104 H Respiratory Rate 20 H Blood Pressure 180/58 H 162/62 H Blood Pressure Mean 98 95 Pulse Ox 96 Oxygen Delivery Method Nasal Cannula Oxygen Flow Rate (L/min) 3 Positive well nourished and well developed General Appearance ED: well developed HEENT Reports moist mucous membranes Neck supple and no JVD Resp normal respiratory effort and clear to auscultation bilaterally Cardio regular rate, regular rhythm and no murmurs GI normal to inspection, nondistended, normoactive bowel sounds Palpation: soft and tender LLQ; Negative for guarding or rebound tenderness present Back/Spine General Back: CVA tenderness left Extremity normal to inspection General Extremety ED: Negative for edema or tenderness General Extremity: Negative for edema Neuro oriented x3, CN's II-XII intact bilaterally and no sensory deficits noted Sensorium / Orientation: alert Motor Exam: strength 5/5 throughout Psych mental status grossly normal Skin no rashes or lesions noted MDM MDM MDM Narrative Medical decision making narrative: Patient was given IV fluids and morphine. Patient was given a dose of Zofran. CBC shows a leukocytosis of 15.7. C omprehensive metabolic profile shows a BUN of 56 and a creatinine of 3.32. These were increased from previous results. Urinalysis was obtained and shows leukocyte esterase of 500 with greater than 100 white blood cells and 3+ bacteria. CT scan of the abdomen and pelvis was obtained. There is a 2 mm left distal ureteral calculus with some hydronephrosis and hydroureter. There is also a 7 mm calculus in the superior pole of the left kidney. This was interpreted by the radiologist and reviewed by myself. Patient was given a dose of Rocephin here. I discussed the findings with the patient and recommended admission to the hospital. Patient adamantly refuses to stay in the hospital. Patient states she has to take care of her dog at home. Patient was advised that she has an infected kidney stone that may develop into sepsis. Patient understands and still does not want to be admitted to the hospital. Patient was given a dose of Rocephin here. Patient was given a prescription for Augmentin. Patient was instructed to follow-up with her urologist and primary care physician in 2 to 3 days. Patient was instructed return if worse in any way. Patient understands and is agreeable with the plan. Patient will sign out AGAINST MEDICAL ADVICE. Patient's daughter contacted to come pear picker the patient. She does not want to pear picker the patient because she agrees with us that the patient needs to be admitted to the hospital. She told the patient that she will take care of her dog. Patient is now willing to stay. Case was discussed with the hospitalist. She will admit the patient to her service. Patient is agreeable with the plan. All questions were answered. Lab Data Attestation: I reviewed the patient's lab results. Labs: Laboratory Results - last 24 hr 01/13/21 01/13/2121 17:27 17:27 19:30 WBC 15.7 H RBC 3.67 L Hgb 10.0 L Hct 31.4 L MCV 85.6 MCH 27.2 MCHC 31.8 L RDW Std Deviation 46.4 H RDW Coeff of Wade 14.7 H Plt Count 347 MPV 10.0 Immature Gran % (Auto) 1.000 H Neut % (Auto) 89.6 H Lymph % (Auto) 3.4 L [place] % (Auto) 5.8 Eos % (Auto) 0.0 Baso % (Auto) 0.2 Absolute Neuts (auto) 14.1 H Absolute Lymphs (auto) 0.53 L Nucleated RBC % 0 Differential Comment SCANNED Platelet Estimate ADEQUATE Sodium 143 Potassium 3.8 Chloride 109 H Carbon Dioxide 20.0 L Anion Gap 14 BUN 56 H Creatinine 3.32 H Estim Creat Clear Calc 11.39 Est GFR (MDRD) Af Amer 18 L Est GFR (MDRD) Non-Af 14 L BUN/Creatinine Ratio 16.9 Glucose 193 H Calcium 9.0 Total Bilirubin 0.40 AST 13 L ALT 15 Alkaline Phosphatase 97 Total Protein 8.1 Albumin 3.2 Globulin 4.9 H Albumin/Globulin Ratio 0.7 L Urine Color Yellow Urine Clarity Clear Urine pH 7.0 Ur Specific [place] 1.010 Urine Protein 100 H Urine Glucose (UA) Normal Urine Ketones Negative Urine Occult Blood 25 H Urine Nitrite Negative Urine Bilirubin Negative Urine Urobilinogen Normal Ur Leukocyte Esterase 500 H Urine RBC 0 SEEN Urine WBC >100 SEEN Ur Squamous Epith Cells 0-5 SEEN Urine Bacteria 3+ Urine Mucus 0 SEEN Radiography Diagnostic Testing: Radiology Impression Abdomen/Pelvis CT 01/13/21 17:31 IMPRESSION: Obstructing 2 mm stone in the left distal ureter with associated minimal left hydroureteronephrosis. Additional 7 mm nonobstructing stone in the superior pole left kidney. Grade 1 anterolisthesis L4 on L5. Electronically Signed: Bobo Suarez MD at 18:36 EDT Tel , Service support , Discharge Plan Triage Chief Complaint: Flank Pain ED Provider: Clay Em Dx/Rx/DC Orders Clinical Impression: Ureterolithiasis, Urinary tract infection, Leukocytosis, Acute kidney injury superimposed on chronic kidney disease Instructions: ED CYSTITIS Female Adult, ED Kidney Stone w/ Colic Prescriptions: New amoxicillin-pot clavulanate [amoxicillin-pot clavulanate] 875 MG tablet 875 mg PO Q12H Qty: 20 RF: 0 No Action atorvastatin 40 MG tablet 40 mg PO DAILY RF: 0 amlodipine 10 MG tablet 10 mg PO DAILY RF: 0 insulin aspart U-100 100 UNITS/ML insulin pen 10 units subcut TIDAC RF: 0 lansoprazole 30 mg Capsule,Delayed Release(Dr/Ec) 30 mg PO DAILY RF: 0 pregabalin 50 MG capsule 50 mg PO TID Qty: 0 RF: 0 insulin degludec 100 UNIT/ML insulin pen 15 unit SQ DAILY Qty: 0 RF: 0 hydralazine 50 mg tablet 100 mg PO TID RF: 0 docusate sodium [DOK] 100 MG capsule 100 mg PO DAILY RF: 0 ondansetron 4 mg tablet,disintegrating 4 mg PO TID PRN (Reason: nausea and vomiting) 3 Days Qty: 10 RF: 0 Primary Care Provider: Shawn Almeida Referrals: Ashlyn Kaminski MD [STAFF PHYSICIAN] - 3-5 Days Shawn Almeida MD [Primary Care Provider] - 3-5 Days Disposition Disposition: Against Medical Advice
[2021-01-13] MEDS: 0.9% Normal Saline 1,000 ML 1000 ML IV (17:38)
[2021-01-13] MEDS: Ondansetron 4 MG/2 ML Vial IV (17:38)
[2021-01-13] MEDS: Morphine 4 MG/ML Syringe IV (17:38)
[2021-01-13 17:46] LABS: Absolute Lymphocyte Count 0.53 X10^3/uL (0.83-4.51); Absolute Neutrophil Count 14.1 X10^3/uL (2.0-7.7); Basophil# 0.03 X10^3/uL; Basophil% 0.2 % (0-1); Hematocrit 31.4 % (37-47); Lymphocyte # 0.53 X10^3/ul (0.83-4.51); Lymphocyte % 3.4 % (19-41); Mean Corp Hgb Conc 31.8 g/dL (32-36); Mean Corpuscular Hgb 27.2 pg (27.0-32.0); Mean Corpuscular Volume 85.6 fL (81-99); Monocyte# 0.91 X10^3/uL; Monocyte% 5.8 % (0-10); NRBC Flagged by Analyzer 0 % (0-5); Neutrophil # 14.07 X10^3/uL (2.7-7.7); Neutrophil % 89.6 % (47-70); POSITIVE DIFFERENTIAL YES; Platelet Count 347 K/mm3 (150-450); RBC Distribution Width CV 14.7 % (11.6-14.6); RBC Distribution Width SD 46.4 fl (35.1-43.9); Red Blood Count 3.67 M/mm3 (4.2-5.4); White Blood Count 15.7 K/mm3 (4.4-11.0)
[2021-01-13 17:47] LABS: Differential Indicated SCAN CRITERIA MET
[2021-01-13 18:03] LABS: ALB/GLOB Ratio 0.7 RATIO (0.9-2.4); AST(SGOT) 13 U/L (15-37); Alanine Aminotransfer ALT/SGPT 15 U/L (13-56); Albumin, Serum 3.2 g/dL (3.2-5.0); Alkaline Phosphatase 97 U/L (45-117); Anion Gap 14 (5-15); BUN 56 mg/dL (7-18); BUN/Creat Ratio 16.9 RATIO (10-20); Chloride 109 mmol/L (98-107); Creatinine, Serum 3.32 mg/dL (0.55-1.02); EST Glomerular Filtration Rate 14 mL/min (>60); Est Glom Filt Rate - Afr Amer 18 mL/min (>60); Estimated Creatinine Clearance 11.39 ml/min; Globulin 4.9 g/dL (2.2-4.2); Glucose 193 mg/dL (74-106); Potassium 3.8 mmol/L (3.5-5.1); Protein, Total 8.1 g/dL (6.4-8.2); Sodium Level 143 mmol/L (136-145)
[2021-01-13 18:07] LABS: Differential Comment SCANNED; Platelet Estimate ADEQUATE (ADEQ)
[2021-01-13 19:44] LABS: Mucous, Urine 0 SEEN /hpf (<or=2+); Red Blood Cells-Urine 0 SEEN /hpf (0-5)
[2021-01-13 19:45] VITALS: BP 145/60; O2SAT 93
[2021-01-13 19:52] LABS: Color, Urine Yellow (Yellow); Glucose, Dipstick Normal (Normal); Ketone-Dipstick Negative (Negative); Leukocyte Esterase-Dipstick 500 /ul (Negative); Nitrite-Dipstick Negative (Negative); Occult Blood-Urine 25 /ul (Negative); Protein-Dipstick 100 mg/dl (Negative); Urine Bilirubin Dipstick Negative (Negative); Urine Clarity Clear (Clear); Urine Urobilinogen Normal (Normal)
[2021-01-13 20:04] LABS: White Blood Cells >100 SEEN /hpf (0-5)
[2021-01-13 20:05] LABS: Bacteria 3+ /hpf (None Seen); Squamous Epithelial Cells - UA 0-5 SEEN /hpf (5-10)
[2021-01-13 21:15] VITALS: BP 160/67; O2SAT 93
[2021-01-13 22:05] VITALS: BP 180/58; PULSE 104; RESP 20; TEMP 38.6; O2SAT 96
[2021-01-13] MEDS: Ceftriaxone 1 GM/50 ML BAG IV (22:07)
[2021-01-13] MEDS: Acetaminophen 500 MG Tablet 1000 MG PO (22:20)
[2021-01-13 23:00] VITALS: BP 159/59; PULSE 89; RESP 18; TEMP 38.4; O2SAT 95
[2021-01-13 23:06] VITALS: BP 162/62
--- NOTE | 2021-01-13 23:46 | ED.RN ---
PT RELUCTANT TO BE ADMITTED TO [facility], STATES SHE WANTS TO SIGN OUT AMA AND HAVE DAUGHTER TO COME TAKE HER HOME. PER PHONE CALL TO DAUGHTER ARCHANA, SHE STATES MOTHER NEEDS TO BE COMPLIANT WITH CARE, AND WILL NOT TRANSPORT MOTHER HOME. THIS RN RELAYED MESSAGE TO PT, ADVISED FRIEND IS TAKING CARE OF HER DOG. PT AGREES TO BE ADMITTED, MD AWARE.
[2021-01-14] VITALS (16 sets, daily range): BP systolic 104–156; BP diastolic 41–68; PULSE 72–92; RESP 16–18; TEMP 36.8–38.3; O2SAT 93–98; BMI 26.4; BMI 26.5
--- NOTE | 2021-01-14 00:12 | HP.PCM.HOS_ITS ---
HPI - General HPI Narrative DOMINICK NEELY, is a 75 F who presented to the emergency department [facility] on 01/13/2021 with a chief complaint of back pain. The patient states that yesterday she began having dysuria, nausea, vomiting and general malaise. She denies any known documented fever at home but has had some intermittent chills. Her p.o. intake has been very poor she reports since yesterday. She has had recent issues with kidney stones that was diagnosed in October of this past year that required stent placement on the right and it appears that the stent was recently exchanged on 12/22/2020. With her presentation of flank pain, a UA was performed and is consistent with infection. A CT of her abdomen pelvis was also performed given her history of nephrolithiasis and her flank pain and this showed an obstructing 2 mm stone in the distal left ureter with associated minimal left hydro and a 7 mm nonobstructing stone in the superior pole of the left kidney. She has been febrile with some mild tachy cardia in the emergency department. Her T-max is 100.4. Her blood pressures have been stable her respiratory rate has been normal and her oxygen saturations were 93 to 95% on room air. At this time she is on 3 L nasal cannula but no documented hypoxia was noted. Her CBC shows an elevated white count at 15.7 with a marked left shift. She is a chronic stable anemia. Her BMP shows worsening renal function with a creatinine of 3.32 and a BUN of 56. Her LFTs are within normal limits. She was treated with IV fluids and IV Rocephin in the emergency department. [facility] Medical History (Updated 01/14/21 @ 00:[address] Shawnee Menon, ) Chronic kidney disease, stage 3b Cognitive decline Depression Diabetes Gastric reflux High cholesterol Hydronephrosis Hypertension Injury of back Nephrolithiasis Non-smoker Pyelonephritis Shortness of breath on exertion Uncontrolled type 2 diabetes mellitus Uses wheelchair Home Medications amlodipine 10 mg PO DAILY 06/05/18 [History Last Taken 08/04/19] atorvastatin 40 mg PO DAILY 06/05/18 [History Last Taken 08/04/19] insulin aspart U-100 10 units SUBCUT TIDAC 08/04/19 [History Last Taken 08/04/19] lansoprazole 30 mg PO DAILY 11/03/20 [History Last Taken Unknown] insulin degludec 15 unit SQ DAILY #0 ml 11/07/20 [Rx Last Taken 08/04/19] pregabalin 50 mg PO TID #0 cap 11/07/20 [Rx Last Taken 08/04/19] ondansetron 4 mg PO TID PRN 3 Days #10 tab 12/02/20 [Rx Last Taken Unknown] docusate sodium [DOK] 100 mg PO DAILY 12/17/20 [History Last Taken Unknown] hydralazine 100 mg PO TID 12/17/20 [History Last Taken Unknown] amoxicillin-pot clavulanate 875 mg PO Q12H #20 tablet 01/13/21 [Rx Last Taken Unknown] Allergy/AdvReac Type Severity Reaction Status Date / Time blue dye Allergy PASS OUT Verified 01/13/21 17:30 Surgical History H/O: hysterectomy History of cholecystectomy History of cystoscopy Social History (Updated 01/14/21 @ 00:[address] Shawnee Menon DO) Smoking Status: Former smoker alcohol intake: never substance use type: does not use ROS Constitutional Constitutional: Reports chills, fatigue, malaise and weakness Eyes Eyes: Denies blurry vision, change in eye color, change in vision, discharge from eye(s), double vision, erythema, eye pain, loss of vision or other ENT HEENT: Denies abnormal hearing, dysphagia, ear pain, epistaxis, headache(s), hearing loss, nasal congestion, nasal discharge, post nasal drip, sinus pressure, sore throat or other Cardiovascular Cardiovascular: Denies chest pain, claudication, dyspnea on exertion, edema, lightheadedness, orthopnea, palpitations, paroxysmal nocturnal dyspnea, rapid heart rate, syncope or other Respiratory/Chest Respiratory/Chest: Denies cough, dyspnea, excessive phlegm production, hemoptysis, productive cough, shortness of breath at rest, shortness of breath with exertion, wheezing or other Gastrointestinal Gastrointestinal: Reports abdominal pain, constipation, nausea and vomiting Genitourinary Genitourinary: Reports burning urination, dysuria, urinary frequency, urinary incontinence and urinary urgency; Denies difficulty urinating, hematuria, nocturia, urinary hesitancy or other Musculoskeletal Musculoskeletal: Denies arthralgias, back pain, joint pain, joint stiffness, joint swelling, myalgias, neck pain or other Neurologic Neurologic: Denies abnormal gait, abnormal speech, confusion, disequilibrium, dizziness, focal weakness, headache(s), numbness, paresthesias, seizure-like activity, seizures, syncope, tingling, tremor(s) or other Psychiatric Psychiatric: Denies anxiety, depression, homicidal ideation, suicidal ideation or other Endocrine Endocrinology: Denies change in body appearance, cold intolerance, excessive sweating, heat intolerance, polydipsia, polyuria or other Hematologic/Lymphatic Hematologic/Lymphatic: Denies anemia, easy bleeding, easy bruising, lymphadenopathy or other Allergic/Immunologic Allergic/Immunologic: Denies rhinitis, hives, eczemia, asthma or other Vital Signs Vital Signs Vital Signs: 01/13/21 17:10 01/13/21 19:45 01/13/21 21:15 Temperature 97.4 F L Temperature Source Temporal Pulse Rate 99 Respiratory Rate 16 Blood Pressure 170/62 H 145/60 H 160/67 H Blood Pressure Mean 98 88 98 Pulse Ox 95 93 93 Oxygen Delivery Method Room Air Room Air Oxygen Flow Rate (L/min) 01/13/21 22:05 01/13/21 23:00 01/13/21 23:06 Temperature 101.4 F H 101.1 F H Temperature Source Oral Oral Pulse Rate 104 H 89 Respiratory Rate 20 H 18 Blood Pressure 180/58 H 159/59 H 162/62 H Blood Pressure Mean 98 92 95 Pulse Ox 96 95 Oxygen Delivery Method Nasal Cannula Nasal Cannula Oxygen Flow Rate (L/min) 3 3 Weight Weight: 69.4 kg Body Mass Index (BMI) 28.9 Physical Exam Const alert, oriented x3 and no apparent distress Constitutional Narrative: Overweight white female lying in bed, appears tired but nontoxic General Appearance: cooperative HEENT normocephalic, head/scalp atraumatic and hearing grossly normal bilaterally HEENT Narrative: Markedly dry mucous membranes, Mallampati 2, edentulous, no thrush Neck no lymphadenopathy, supple and no JVD Resp normal respiratory effort, no retractions, no use of accessory muscles and clear to auscultation bilaterally Auscultation: Negative for crackles, rales, rhonchi or wheezes Cardio regular rate, regular rhythm, S1 normal heart sound, S2 normal heart sound, no murmurs, no rub, no gallops, no clicks and no JVD GI normal to inspection, nondistended, normoactive bowel sounds, soft to palpation, non-tender and non-distended GI Narrative: Mild left-sided flank pain Extremity no clubbing, cyanosis or edema Peripheral Pulses: Yes pulses 2+ throughout Skin no rashes or lesions noted, no wounds, skin turgor normal, no jaundice, no petechiae and no mottling Neuro oriented x3, CN's II-XII intact bilaterally, moves all extremities and no focal motor deficits Sensorium / Orientation: awake, alert, oriented to person, oriented to place and oriented to time Speech: speech normal Psych affect normal Results Lab / Micro Data Attestation: I reviewed the patient's lab results. Result Diagrams: 01/13/21 17:27 01/13/21 17:27 Labs: Laboratory Results - last 24 hr 01/13/21 17:27: WBC 15.7 H, RBC 3.67 L, Hgb 10.0 L, Hct 31.4 L, MCV 85.6, MCH 27 .2, MCHC 31.8 L, RDW Std Deviation 46.4 H, RDW Coeff of Wade 14.7 H, Plt Count 347, MPV 10.0, Immature Gran % (Auto) 1.000 H, Neut % (Auto) 89.6 H, Lymph % (Auto) 3.4 L, [place] % (Auto) 5.8, Eos % (Auto) 0.0, Baso % (Auto) 0.2, Absolute Neuts (auto) 14.1 H, Absolute Lymphs (auto) 0.53 L, Nucleated RBC % 0, Differential Comment SCANNED, Platelet Estimate ADEQUATE 01/13/21 17:27: Sodium 143, Potassium 3.8, Chloride 109 H, Carbon Dioxide 20.0 L , Anion Gap 14, BUN 56 H, Creatinine 3.32 H, Estim Creat Clear Calc 11.39, Est GFR (MDRD) Af Amer 18 L, Est GFR (MDRD) Non-Af 14 L, BUN/Creatinine Ratio 16.9, Glucose 193 H, Calcium 9.0, Total Bilirubin 0.40, AST 13 L, ALT 15, Alkaline Phosphatase 97, Total Protein 8.1, Albumin 3.2, Globulin 4.9 H, Albumin/Globulin Ratio 0.7 L 01/13/21 19:30: Urine Color Yellow, Urine Clarity Clear, Urine pH 7.0, Ur Specific [place] 1.010, Urine Protein 100 H, Urine Glucose (UA) Normal, Urine Ketones Negative, Urine Occult Blood 25 H, Urine Nitrite Negative, Urine Bilirubin Negative, Urine Urobilinogen Normal, Ur Leukocyte Esterase 500 H, Urine RBC 0 SEEN, Urine WBC >100 SEEN, Ur Squamous Epith Cells 0-5 SEEN, Urine Bacteria 3+, Urine Mucus 0 SEEN Radiology Impression Abdomen/Pelvis CT 01/13/21 17:31 IMPRESSION: Obstructing 2 mm stone in the left distal ureter with associated minimal left hydroureteronephrosis. Additional 7 mm nonobstructing stone in the superior pole left kidney. Grade 1 anterolisthesis L4 on L5. Electronically Signed: Bobo Suarez MD at 18:36 EDT Tel , Service support , Assessment & Plan Assessment/Plan (1) Urinary tract infection: (2) Leukocytosis: (3) Acute kidney injury superimposed on chronic kidney disease: (4) Hydronephrosis: PLAN: Acute cystitis with left-sided hydronephrosis -Patient with a small obstructing stone--> may not need any surgical intervention -Consult Dr. Kaminski to evaluate that she has been established with her -Urine and blood cultures are pending -UA is positive -Start Rocephin -N.p.o. after midnight -Based on previous cultures which were E. coli--> were sensitive to Rocephin Leukocytosis -Secondary to above -Watch trend with treatment EMANUEL on CKD stage IIIb -Patient appears acutely dehydrated -IV fluids -Avoid nephrotoxins -Repeat BMP in a.m. DM-2 -Continue home insulin doses -Start SSI -Accu-Cheks -N.p.o. after midnight in case patient is to go for procedure Diabetic neuropathy -Continue Lyrica GERD -Continue PPI Hypertension -Continue hydralazine and amlodipine Hypothyroidism -Continue atorvastatin DVT prophylaxis -Heparin subcu 3 times daily CODE STATUS -Full code Charges/Coding Visit Charges Inpatient E&M: 18916 Init Hosp L3
[2021-01-14 01:00] LABS: Lactic Acid 2.2 mmol/L (0.4-1.9)
[2021-01-14] MEDS: 0.9% Normal Saline 1,000 ML 125 ML IV ×4 (02:26→23:26)
--- NOTE | 2021-01-14 03:16 | PCS.PANDOC ---
PANDEMIC DOCUMENTATION INITIATED: Date: 11/24/2020 Time: 1900 Emergency documentation [email or web address]/6/21 @0130
[2021-01-14 04:24] LABS: Reflex Lactate? Y
[2021-01-14 04:52] LABS: Absolute Lymphocyte Count 0.68 X10^3/uL (0.83-4.51); Absolute Neutrophil Count 11.2 X10^3/uL (2.0-7.7); Basophil# 0.02 X10^3/uL; Basophil% 0.2 % (0-1); Hematocrit 28.3 % (37-47); Hemoglobin 8.6 g/dL (12.0-15.0); Lymphocyte # 0.68 X10^3/ul (0.83-4.51); Lymphocyte % 5.4 % (19-41); Mean Corp Hgb Conc 30.4 g/dL (32-36); Mean Corpuscular Hgb 27.2 pg (27.0-32.0); Mean Corpuscular Volume 89.6 fL (81-99); Mean Platelet Vol. 9.7 fl (6.2-12.0); Monocyte# 0.69 X10^3/uL; Monocyte% 5.4 % (0-10); NRBC Flagged by Analyzer 0 % (0-5); Neutrophil # 11.17 X10^3/uL (2.7-7.7); Neutrophil % 87.8 % (47-70); POSITIVE MORPHOLOGY YES; Platelet Count 225 K/mm3 (150-450); RBC Distribution Width CV 15.1 % (11.6-14.6); RBC Distribution Width SD 50.2 fl (35.1-43.9); Red Blood Count 3.16 M/mm3 (4.2-5.4); White Blood Count 12.7 K/mm3 (4.4-11.0)
[2021-01-14 05:00] LABS: Differential Indicated SCAN CRITERIA MET
[2021-01-14 05:12] LABS: ALB/GLOB Ratio 0.6 RATIO (0.9-2.4); AST(SGOT) 44 U/L (15-37); Alanine Aminotransfer ALT/SGPT 25 U/L (13-56); Albumin, Serum 2.4 g/dL (3.2-5.0); Alkaline Phosphatase 116 U/L (45-117); Anion Gap 9 (5-15); BUN 60 mg/dL (7-18); BUN/Creat Ratio 18.1 RATIO (10-20); Calcium,Total 8.1 mg/dL (8.5-10.1); Chloride 113 mmol/L (98-107); Creatinine, Serum 3.32 mg/dL (0.55-1.02); EST Glomerular Filtration Rate 14 mL/min (>60); Est Glom Filt Rate - Afr Amer 18 mL/min (>60); Estimated Creatinine Clearance 11.39 ml/min; Globulin 4.3 g/dL (2.2-4.2); Glucose 109 mg/dL (74-106); Phosphorus 1.9 mg/dL (2.5-4.9); Potassium 3.3 mmol/L (3.5-5.1); Protein, Total 6.7 g/dL (6.4-8.2); Sodium Level 144 mmol/L (136-145)
[2021-01-14] MEDS: Potassium Chloride Oral Tablet 20 MEQ 40 MEQ PO (06:34)
[2021-01-14] MEDS: Magnesium Sulfate 4gm/100mL 4 GM/100 ML IV.SOLN. IV (06:50)
--- NOTE | 2021-01-14 08:12 | CON.PCM_ITS ---
Assessment & Plan Assessment/Plan (1) Urinary tract infection: (2) Ureterolithiasis: (3) Hydronephrosis: PLAN: continue NPO diet will make arrangements for cystoscopy with left ureteral stent insertion continue antibiotics and supportive care await culture results HPI Consult Data Date of Consult: 01/14/21 HPI Narrative HPI Narrative: DOMINICK NEELY, is a 75 F with diabetes and a right ureteral stent that presented to the ER with left flank pain, fever, nausea and vomiting. Found to have left distal ureteral stone with hydronephrosis. Main complaint is left lower abdominal pain. COUNT INCLUDES [facility] Medical History Chronic kidney disease, stage 3b Cognitive decline Depression Diabetes Gastric reflux High cholesterol Hydronephrosis Hypertension Injury of back Nephrolithiasis Non-smoker Pyelonephritis Shortness of breath on exertion Uncontrolled type 2 diabetes mellitus Uses wheelchair Home Medications amlodipine 10 mg PO DAILY 06/05/18 [History Last Taken 08/04/19] atorvastatin 40 mg PO DAILY 06/05/18 [History Last Taken 08/04/19] insulin aspart U-100 10 units SUBCUT TIDAC 08/04/19 [History Last Taken 07/11 08/28] lansoprazole 30 mg PO DAILY 11/03/20 [History Last Taken Unknown] insulin degludec 15 unit SQ DAILY #0 ml 11/07/20 [Rx Last Taken 08/04/19] pregabalin 50 mg PO TID #0 cap 11/07/20 [Rx Last Taken 08/04/19] ondansetron 4 mg PO TID PRN 3 Days #10 tab 12/02/20 [Rx Last Taken Unknown] docusate sodium [DOK] 100 mg PO DAILY 12/17/20 [History Last Taken Unknown] hydralazine 100 mg PO TID 12/17/20 [History Last Taken Unknown] amoxicillin-pot clavulanate 875 mg PO Q12H #20 tablet 01/13/21 [Rx Last Taken Unknown] Allergy/AdvReac Type Severity Reaction Status Date / Time blue dye Allergy PASS OUT Verified 01/13/21 17:30 Surgical History H/O: hysterectomy History of cholecystectomy History of cystoscopy Social History Smoking Status: Former smoker alcohol intake: never substance use type: does not use ROS ROS Narrative Complaining of nausea and left lower quadrant abdominal pain. Some pain in her left flank as well. Was vomiting prior to admission. No significant dysuria or hematuria. Has been having fevers. Physical Exam Const General Appearance: cooperative and in distress Positive for mild (Due to abdominal pain) HEENT normocephalic and head/scalp atraumatic Eyes General Eye: normal appearance of both eyes Neck supple General: trachea midline Chest inspection of chest normal Chest: symmetrical chest wall rise Resp no retractions and no use of accessory muscles Effort and Inspection: able to speak in complete sentences and symmetric chest movement Cardio regular rate and regular rhythm GI soft to palpation and non-distended external exam normal Back/Spine General Back: CVA tenderness left Extremity normal to inspection Skin no rashes or lesions noted Lab / Micro Data Result Diagrams: 01/14/21 04:44 01/14/21 04:44 Labs: Laboratory Results - last 24 hr 01/13/21 17:27: WBC 15.7 H, RBC 3.67 L, Hgb 10.0 L, Hct 31.4 L, MCV 85.6, MCH 27.2, MCHC 31.8 L, RDW Std Deviation 46.4 H, RDW Coeff of Wade 14.7 H, Plt Count 347, MPV 10.0, Immature Gran % (Auto) 1.000 H, Neut % (Auto) 89.6 H, Lymph % (A uto) 3.4 L, [place] % (Auto) 5.8, Eos % (Auto) 0.0, Baso % (Auto) 0.2, Absolute Neuts (auto) 14.1 H, Absolute Lymphs (auto) 0.53 L, Nucleated RBC % 0, Differential Comment SCANNED, Platelet Estimate ADEQUATE 01/13/21 17:27: Sodium 143, Potassium 3.8, Chloride 109 H, Carbon Dioxide 20.0 L , Anion Gap 14, BUN 56 H, Creatinine 3.32 H, Estim Creat Clear Calc 11.39, Est GFR (MDRD) Af Amer 18 L, Est GFR (MDRD) Non-Af 14 L, BUN/Creatinine Ratio 16.9, Glucose 193 H, Calcium 9.0, Total Bilirubin 0.40, AST 13 L, ALT 15, Alkaline Phosphatase 97, Total Protein 8.1, Albumin 3.2, Globulin 4.9 H, Albumin/Globulin Ratio 0.7 L 01/13/21 19:30: Urine Color Yellow, Urine Clarity Clear, Urine pH 7.0, Ur Specific [place] 1.010, Urine Protein 100 H, Urine Glucose (UA) Normal, Urine Ketones Negative, Urine Occult Blood 25 H, Urine Nitrite Negative, Urine Bilirubin Negative, Urine Urobilinogen Normal, Ur Leukocyte Esterase 500 H, Urine RBC 0 SEEN, Urine WBC >100 SEEN, Ur Squamous Epith Cells 0-5 SEEN, Urine Bacteria 3+, Urine Mucus 0 SEEN 01/14/21 00:20: Lactic Acid 2.2 H* 01/14/21 04:44: WBC 12.7 H, RBC 3.16 L, Hgb 8.6 L, Hct 28.3 L, MCV 89.6, MCH 27.2, MCHC 30.4 L, RDW Std Deviation 50.2 H, RDW Coeff of Wade 15.1 H, Plt Count 225, MPV 9.7, Immature Gran % (Auto) 1.200 H, Neut % (Auto) 87.8 H, Lymph % (Auto) 5.4 L, [place] % (Auto) 5.4, Eos % (Auto) 0.0, Baso % (Auto) 0.2, Absolute Neuts (auto) 11.2 H, Absolute Lymphs (auto) 0.68 L, Nucleated RBC % 0 01/14/21 04:44: Sodium 144, Potassium 3.3 L, Chloride 113 H, Carbon Dioxide 22.0, Anion Gap 9, BUN 60 H, Creatinine 3.32 H, Estim Creat Clear Calc 11.39, Est GFR (MDRD) Af Amer 18 L, Est GFR (MDRD) Non-Af 14 L, BUN/Creatinine Ratio 18.1, Glucose 109 H, Calcium 8.1 L, Phosphorus 1.9 L, Magnesium 1.0 L, Total Bilirubin 0.40, AST 44 H, ALT 25, Alkaline Phosphatase 116, Total Protein 6.7, Albumin 2.4 L, Globulin 4.3 H, Albumin/Globulin Ratio 0.6 L 01/14/21 04:44: Lactic Acid 2.0 Radiology Impression Abdomen/Pelvis CT 01/13/21 17:31 IMPRESSION: Obstructing 2 mm stone in the left distal ureter with associated minimal left hydroureteronephrosis. Additional 7 mm nonobstructing stone in the superior pole left kidney. Grade 1 anterolisthesis L4 on L5. Electronically Signed: Bobo Suarez MD at 18:36 EDT Tel , Service support ,
[2021-01-14] MEDS: Morphine 4 MG/ML Syringe IV (08:58)
[2021-01-14 09:05] LABS: Bedside Glucose 106 mg/dL (70-110)
--- NOTE | 2021-01-14 09:24 | PN.HOSP_ITS ---
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 Patient has plan for cystoscopy with left retrograde stent. Seen by urologist. On IV antibiotic ceftriaxone.
--- NOTE | 2021-01-14 10:15 | CASEMGMT ---
Social Work Pt has services through [employer] and [employer] Set Up Operator is Isela Desai. SARAH updated Isela of pt admission. Pt once had home health aides but currently does not. She does have a medical alert but has cancelled home delivered meals. Per Isela, pt does have someone living with her that assist with cooking and cleaning. SARAH will update [facility] at time of discharge. JAY Bernardo
--- NOTE | 2021-01-14 11:36 | CASEMGMT ---
RN CM Assessment Introduced role of RN CM to patient. Patient is alert, oriented and able to participate in RN CM Assessment. Care providers, pharmacy, and demographics verified. Admit Dx: Hydronephrosis, UTI Re-Admit: No Barriers/Issues: Patient Friend Ed Andrew (whom has h/o brain injury since 19yo- but able to assist patient with care needs) stays with patient on weekends and throughout the week (is there most of the time). Dtr Brandi lives [address] from patient. Dtr, jatinder shah and friend Ed all help shop for patient. Ed takes patient to [facility]. Dtr Transports patient. Patient has Passport with field nurse case manager Isela Treviño PCP: Shawn Almeida Specialists: None Preferred Pharmacy: [facility] Insurance: [facility] Rx Benefit: Yes LNOK: [facility] and [facility] LW/HPOA: None. Patient provided information for AD with social work nurse rack card. Aware can return as an outpatient to complete with social work dept. Living Arrangements: Lives alone but friend ED id there most of the time to assist patient. Lives on ground fl apartment, no steps to enter. ADL?s: Ambulates with 3 prong cane, Rollator, or WC. Friend Ed assists with bathing, dressing, cooking and cleaning. Patient is independent with dressing. Transportation: [facility] DME: Rollator, 3 prong cane, Hospital Bed, Grab Bars, WC, MAD, Incontinence supplies HHC: Past with [place]. States her passport worker Isela is working on trying to get her a 24/7 nurse. SNF: Past Goal: Home with previous set up/care as above. Does not think will have any additional needs when it is time to DC. Aware RNCM will continue to follow should any needs arise. DC PLAN: Home with no anticipated needs identified at this time. SHEKHAR Leon
[2021-01-14 12:26] LABS: Bedside Glucose 113 mg/dL (70-110)
--- NOTE | 2021-01-14 12:57 | EKG12_ITS ---
Test Reason : PRE OP Blood Pressure : / mmHG Vent. Rate : 072 BPM Atrial Rate : 072 BPM P-R Int : 196 ms QRS Dur : 130 ms QT Int : 464 ms P-R-T Axes : 083 -15 017 degrees QTc Int : 508 ms Normal sinus rhythm Right bundle branch block Abnormal ECG When compared with ECG of 04-NOV-2020 05:09, No significant change was found Confirmed by FLEX ROWELL, FREEMAN ([id number]), supervising editor trailer GULSHAN TRAYLOR ([id number]) on 01/21/2021 9:25:21 AM Referred By: VEENA Confirmed By:FREEMAN MCCORD MD
--- NOTE | 2021-01-14 14:30 | NURSING ---
messaged left with patients contacts, Brandi and Meri (son and daughter) regarding POC. no return call received at this time.
--- NOTE | 2021-01-14 16:35 | PCM.OPRPT ---
Problems Associated Problem List Diagnoses (1) Urinary tract infection: (2) Ureterolithiasis: (3) Hydronephrosis: Report of Operation Date of Procedure: 01/14/21 Pre-Operative Diagnosis: Urinary tract infection with left ureteral calculus and obstruction, hydronephrosis Post-Operative Diagnosis: Same Surgery/Procedure Performed:: Cystoscopy insertion of left ureteral stent Type of Anesthesia: MAC Specimen's removed: None Description of Procedure: The patient is a 75-year-old female admitted from the emergency room yesterday after finding left ureteral obstruction with infection. She now presents for left ureteral stent insertion. Secondary to her oxygen status, a very minimal amount of anesthesia was decided upon. The patient was taken the operating room placed on the operating room table. Anesthesia monitored the head, neck, airway, IV access and vital signs throughout the case. Once anesthesia was appropriately ministered, the patient was placed into dorsal lithotomy position was prepped and draped in usual sterile fashion. The cystoscope was inserted through the urethra under direct visualization into the urinary bladder. The urine had a very foul odor. 3.035 Glidewire was used to intubate the left ureteral orifice and was then passed into the renal pelvis as seen under fluoroscopic visualization. A 6 Portuguese 22 cm stent was then inserted over the wire with positioning in the renal pelvis as well as the urinary bladder. At this time a an 18 Portuguese Alexandre catheter was inserted with 10 cc in the balloon. A urine culture was sent from the Alexandre catheter. The patient was awakened and taken to the recovery room in okay condition. Grafts/Implants Used: 6 x 22 JJ stent Complications None Admit VTE Documentation VTE Present on Admission: Yes VTE Mechan Device Prophylaxis: SCD's VTE Pharm Prophylaxis ordered?: Yes
[2021-01-14] MEDS: Pantoprazole Sodium 40 MG Tablet PO (18:23)
[2021-01-14] MEDS: Pregabalin 50 MG Capsule PO (18:23)
[2021-01-14] MEDS: amLODIPine 10 MG Tablet PO (18:24)
[2021-01-14] MEDS: Tamsulosin HCl 0.4 MG Capsule PO (18:25)
[2021-01-14 18:40] LABS: D-Dimer Quantitative (DVT/PE) 4.07 FEU/ug/m (0.27-0.49)
[2021-01-14 18:41] LABS: Bedside Glucose 76 mg/dL (70-110)
--- NOTE | 2021-01-14 18:57 | VDLE_ITS ---
Reason For Study: Elevated D-dimer RIGHT LEFT GSV is normal. GSV is normal. CFV is compressible, spontaneous, phasic, CFV is compressible, spontaneous, phasic, competent and demonstrates normal competent, and demonstrates normal augmentation. augmentation. FV is compressible, spontaneous, phasic, FV is compressible, spontaneous, phasic, competent and demonstrates normal competent and demonstrates normal augmentation. augmentation. POP V is compressible, spontaneous, phasic, POP V is compressible, spontaneous, phasic, competent and demonstrates normal competent and demonstrates normal augmentation. augmentation. T/P Trunk is compressible. T/P Trunk is compressible. PTV is compressible. PTV is compressible. RT PerV is compressible. LT PerV is compressible. Procedure Acute deep vein thrombosis is noted in the This is a venous duplex using B-mode, color left soleus vein. flow and spectral Doppler. Exam performed portable in patient room. A preliminary report was called and/or faxed to cutting department supervisor. VL/Venous Duplex US - Pj Extrem Interpretation Summary Acute deep venous thrombosis left soleus vein. Otherwise patent and compressible bilateral lower extremity deep veins Patent and compressible bilateral great saphenous veins Ordering Physician: Sean Vargas Referring Physician: MD Juan Pablo Shawn Performed By: Barbara Yang RVT
[2021-01-14] MEDS: Enoxaparin 60 MG/0.6 ML Syringe SC (20:39)
[2021-01-14] MEDS: Ceftriaxone 1 GM/50 ML BAG IV (20:42)
[2021-01-14] MEDS: Atorvastatin Calcium 40 MG Tablet PO (20:42)
[2021-01-14 22:25] LABS: Bedside Glucose 224 mg/dL (70-110)
[2021-01-15] VITALS (12 sets, daily range): BP systolic 128–150; BP diastolic 40–65; PULSE 86–98; RESP 15–20; TEMP 36.4–37.5; O2SAT 2–94
[2021-01-15 00:43] LABS: Hematocrit 26.8 % (37-47); Hemoglobin 8.2 g/dL (12.0-15.0)
[2021-01-15 05:37] LABS: Absolute Lymphocyte Count 1.83 X10^3/uL (0.83-4.51); Absolute Neutrophil Count 14.8 X10^3/uL (2.0-7.7); Basophil# 0.02 X10^3/uL; Basophil% 0.1 % (0-1); Eosinophil# 0.03 X10^3/uL; Eosinophils% 0.2 % (0-5); Hematocrit 23.1 % (37-47); Hemoglobin 7.1 g/dL (12.0-15.0); Lymphocyte # 1.83 X10^3/ul (0.83-4.51); Lymphocyte % 10.3 % (19-41); Mean Corp Hgb Conc 30.7 g/dL (32-36); Mean Corpuscular Hgb 27.6 pg (27.0-32.0); Mean Corpuscular Volume 89.9 fL (81-99); Mean Platelet Vol. 10.2 fl (6.2-12.0); Monocyte# 0.67 X10^3/uL; Monocyte% 3.8 % (0-10); NRBC Flagged by Analyzer 0 % (0-5); Neutrophil # 14.75 X10^3/uL (2.7-7.7); Neutrophil % 83.4 % (47-70); POSITIVE MORPHOLOGY YES; Platelet Count 164 K/mm3 (150-450); RBC Distribution Width CV 15.8 % (11.6-14.6); RBC Distribution Width SD 52.2 fl (35.1-43.9); Red Blood Count 2.57 M/mm3 (4.2-5.4); White Blood Count 17.7 K/mm3 (4.4-11.0)
[2021-01-15 05:48] LABS: Differential Indicated SCAN CRITERIA MET
[2021-01-15] MEDS: Pregabalin 50 MG Capsule PO ×3 (06:07→20:30)
[2021-01-15 06:23] LABS: Anion Gap 9 (5-15); BUN 61 mg/dL (7-18); BUN/Creat Ratio 17.2 RATIO (10-20); Chloride 117 mmol/L (98-107); Creatinine, Serum 3.54 mg/dL (0.55-1.02); EST Glomerular Filtration Rate 13 mL/min (>60); Est Glom Filt Rate - Afr Amer 16 mL/min (>60); Estimated Creatinine Clearance 10.68 ml/min; Glucose 212 mg/dL (74-106); Potassium 4.1 mmol/L (3.5-5.1); Sodium Level 144 mmol/L (136-145)
[2021-01-15 07:16] LABS: Anisocytosis 1+; Burr Cells 2+; Tear Drop Cell RARE
[2021-01-15] MEDS: 0.9% Normal Saline 1,000 ML 125 ML IV (07:20)
[2021-01-15 08:06] LABS: Ferritin 57 ng/mL (8-252); Iron 11 ug/dL (50-170); Iron Binding Capacity,Total 197 ug/dL (250-450); LDH 179 U/L (84-246); PERCENT IRON SATURATION 5.6 % (15.0-55.0)
[2021-01-15 08:20] LABS: Bedside Glucose 189 mg/dL (70-110)
[2021-01-15 08:23] LABS: Vitamin B12 415 pg/mL (211-911)
[2021-01-15 08:27] LABS: Platelet Count 180 K/mm3 (150-450); Reticulocyte Count 1.24 % (0.5-1.5)
--- NOTE | 2021-01-15 09:00 | NM_ITS ---
CLINICAL: 75-year-old female with reported history of elevation of the d-dimer. VENTILATION-PERFUSION LUNG SCINTIGRAPHY COMPARISON: None available FINDINGS: The patient was administered 86.0 mCi 99m Tc DTPA aerosol. The aerosol ventilation study demonstrates heterogeneous ventilation identified throughout the bilateral lung gutiérrez. Central clumping of the aerosol is noted in the bilateral hemithorax. Following the intravenous administration of 5.4 mCi of 99m Tc MAA the pulmonary perfusion study reveals uniform perfusion throughout both lung gutiérrez. There are no segmental or subsegmental perfusion defects identified. There are no ventilation-perfusion mismatches observed. NM/Lung Scan Vent/Perf IMPRESSION: 1. NORMAL 99m Tc MAA pulmonary perfusion imaging examination, according to PIOPED II interpretive criteria. (Sotsman et al, Radiology 246: 941, 2008 Sotsman et al, J Nucl Med 49: 1741, 2008). 2. Central clumping of the aerosol may be secondary to obstructive airway mechanics and or clinical tachypnea. Electronically Signed: Reji Ramires DO at 10:09 EDT Tel , Service support ,
--- NOTE | 2021-01-15 09:50 | PN.HOSP_ITS ---
Subjective Subjective D-dimer was elevated therefore Was given 1 dose of Lovenox therapeutic dose with creatinine clearance around 15 mL/min.Duplex scan shows small soleal vein DVT.Hemoglobin dropped to 7.1.Iron studies suggestive of inflammatory anemia/anemia of chronic disease.Serum iron low therefore 1 dose of 200 mg of IV iron sucrose Ordered. Patient had VQ scan which came negative. Objective Data Objective Data Vital Signs: Vital Signs Temp Pulse Resp BP Pulse Ox 99.5 F H 86 16 128/44 H 94 01/15/21 03:12 01/15/21 06:10 01/15/21 03:12 01/15/21 06:10 01/15/21 03:12 Oxygen Flow Rate (L/min) 2 Oxygen Delivery Method Nasal Cannula Weight: 139 lb 15.896 oz Body Mass Index (BMI) 26.4 Intake & Output: Intake and Output for Last 24 Hours 01/13/21 01/14/21 01/15/21 23:59 23:59 23:59 Intake Total 1000 / 1000 3301.67 / 3601.67 1527.5 / 1527.5 Output Total 450 / 700 550 / 550 Balance 1000 / 1000 2851.67 / 2901.67 977.5 / 977.5 Lab / Micro Data Result Diagrams: 01/15/21 05:29 01/15/21 05:29 Labs: Laboratory Results - last 24 hr 01/13/21 17:27: Vitamin B12 415 01/14/21 12:14: POC Glucose 113 H 01/14/21 17:56: POC Glucose 76 01/14/21 17:57: D-Dimer Quant (PE/DVT) 4.07 H* 01/14/21 22:21: POC Glucose 224 H 01/15/21 00:30: Hgb 8.2 L, Hct 26.8 L 01/15/21 05:29: Sodium 144, Potassium 4.1, Chloride 117 H, Carbon Dioxide 18.0 L , Anion Gap 9, BUN 61 H, Creatinine 3.54 H, Estim Creat Clear Calc 10.68, Est GFR (MDRD) Af Amer 16 L, Est GFR (MDRD) Non-Af 13 L, BUN/Creatinine Ratio 17.2, Glucose 212 H, Calcium 7.0 L 01/15/21 05:29: WBC 17.7 H, RBC 2.57 L, Hgb 7.1 L, Hct 23.1 L, MCV 89.9, MCH 27.6, MCHC 30.7 L, RDW Std Deviation 52.2 H, RDW Coeff of Wade 15.8 H, Plt Count 164, MPV 10.2, Immature Gran % (Auto) 2.200 H, Neut % (Auto) 83.4 H, Lymph % (Auto) 10.3 L, [place] % (Auto) 3.8, Eos % (Auto) 0.2, Baso % (Auto) 0.1, Absolute Neuts (auto) 14.8 H, Absolute Lymphs (auto) 1.83, Nucleated RBC % 0, Aniso cytosis 1+, Tear Drop Cells RARE, [place] Cells 2+ 01/15/21 05:29: Retic Count 1.24, Immature Retic Fraction 6.50, Retic Hgb Equivalent 26.0 L 01/15/21 05:29: Iron 11 L, TIBC 197 L, Iron Saturation 5.6 L, Ferritin 57, Lactate Dehydrogenase 179, Folate 6.20 01/15/21 08:13: POC Glucose 189 H Micro: Microbiology 01/14/21 09:05 Nasal Secretion SARS-CoV-2 Antigen (Rapid) - Final Physical Exam Narrative Patient denies any chronic lung disease including COPD, asthma, smoking or exposure. She is not on home oxygen. On 2 L of oxygen General: Alert, Oriented x3, Cooperative HEENT: Atraumatic, PERRLA, EOMI, Normocephalic Oral: No Gingival or Mucosal Lesions/ Ulcerations Neck: Supple, No JVD, Negative Carotid Bruits Lungs: Air entry diminished in bilateral lung bases. No crepitation/rhonchi Cardiovascular: Regular rate, Regular Rhythm, Normal S1, Normal S2, No murmurs Abdomen: Bowel Sounds Present, Soft, Non Tender, Non-Distended : No renal angle tenderness. No suprapubic tenderness. Extremities: No edema, Capillary Refill Less than 3 Seconds Skin: No rashes, No breakdown Musculoskeletal: No Tenderness to Palpation of Joints or Extremities Neurological: Cranial nerves II-XII grossly intact, DTR 2+/4 and Symmetrical, Neuro grossly intact Psych/Mental Status: Normal Affect, Appropriate. Assessment & Plan Assessment/Plan (1) Urinary tract infection: (2) Leukocytosis: (3) Acute kidney injury superimposed on chronic kidney disease: (4) Hydronephrosis: PLAN: 1. Acute cystitis with left-sided hydronephrosis: Patient was admitted on [facility] floor. Had cystoscopy with left ureteric stent for a small obstructive stone in ureter. Patient abdominal pain is relieved. Seen by urologist. Urine culture shows gram-negative rods less than 1000 but will continue antibiotic while inpatient as she just had procedure. Urologist Dr. Kaminski consult reviewed and appreciated. Leukocytosis 17, 700 with left shift EMANUEL on CKD stage IIIb: Mild decrease in creatinine. On IV fluid. Acute on chronic severe anemia probably inflammatory anemia/anemia of chronic di sease probably due to Heparin and Lovenox subcu for DVT prophylaxis: Hemoglobin dropped to 7.1 from 8.2. Was admitted with hemoglobin 10.0. Stool for occult blood ordered. Iron work-up shows anemia of chronic disease. Serum iron was low 11. Iron sucrose ordered. Unit of PRBC ordered. DM-2 with diabetic neuropathy: Glucose is elevated at 215. Insulin dose adjusted. On Lyrica Elevated D-dimer probably due to previous heparin subcu or inflammation: VQ scan is negative and venous Doppler shows acute DVT of left soleus vein. 1 dose of therapeutic dose of Lovenox was given last evening for suspicion of PE but ruled out. Patient is high risk for any antithrombotic with hemoglobin 7.1 and EMANUEL on CKD stage IIIb. Other chronic conditions include hypertension, GERD, hypothyroidism: CODE STATUS -Full code Charges/Coding Visit Charges Inpatient E&M: 52317 Subs Hosp L2
[2021-01-15] MEDS: Docusate Sodium 100 MG Capsule PO (10:23)
[2021-01-15] MEDS: Sodium Ferric Gluconat 250 MG in 0.9% Normal Saline 250 ML 135 MG IV (10:23)
[2021-01-15] MEDS: Pantoprazole Sodium 40 MG Tablet PO (10:23)
[2021-01-15 12:41] LABS: Bedside Glucose 215 mg/dL (70-110)
[2021-01-15] MEDS: Insulin Lispro 100 UNIT/ML INSULN.PEN 10 UNIT SC ×3 (12:44→21:20)
[2021-01-15] MEDS: Insulin Lispro 100 UNIT/ML INSULN.PEN SC ×2 (12:44→17:21)
[2021-01-15] MEDS: 0.9% Saline Lock 10 ML Syringe IV ×3 (12:45→20:29)
[2021-01-15] MEDS: MethylPREDNISolone 125 MG/2 ML Vial 60 MG IV (12:45)
[2021-01-15] MEDS: hydrALAZINE 50 MG Tablet 100 MG PO ×2 (14:13→20:30)
--- NOTE | 2021-01-15 14:57 | CHAPLAIN ---
Type of Pastoral Visit _x__ Initial Visit ___ Follow-up Visit ___ On-call Visit ___ General Patient Visit ___ Spiritual Assessment ___ Family Conference ___ Bereavement ___ Rapid Response ___ Code Blue ___ Other (describe below) Pastoral Care Referral From _x__ Patient ___ Family ___ Nurse ___ Physician ___ Real Estate Broker ___ Aviation Boatswain'S Mate ___ Other (describe below) Sacrament/Intervention _x__ Active listening ___ Anointing ___ Advent ___ Bereavement ___ Communion ___ Capri exploration ___ _x__ Life review x Prayer ___ Reconciliation ___ Sacrament of Sick _x__ Supportive presence ___ Wedding ___ Other (describe below) Pastoral Comments
[2021-01-15 16:26] LABS: Bedside Glucose 189 mg/dL (70-110)
[2021-01-15] MEDS: Tamsulosin HCl 0.4 MG Capsule PO (17:22)
--- NOTE | 2021-01-15 18:39 | CON.PCM.RE_ITS ---
Assessment & Plan Assessment/Plan (1) EMANUEL (acute kidney injury): PLAN: baseline creatinine is around 1.[address] abd showed left sided hydronephrosis. s/p stone removal. UA has cells, expected from obstru ction. urine output is ok. cr is slightly higher. should improve in 1-2 days. continue fluids. needs follow up after dc for CKD Anemia. with low TSATs. getting IV iron today will follow (2) Hydronephrosis: HPI Consult Data Date of Consult: 01/15/21 HPI Narrative HPI Narrative: DOMINICK NEELY, is a 75 F who presents to the hospital with left sided abdomen pain. renal consulted for EMANUEL. was found to have left sided hydronephrosis. s/p intervention by urology. nephrology consulted for EMANUEL. denies any complaints. reviewed prior charts. seems like she has CKD stage 3B at baseline. creatinine has ranged between 1.8 to 2.0 in the past. PCP is Dr Almeida. Currently denies any complaints. ROS is negative except above PFSH Medical History Chronic kidney disease, stage 3b Cognitive decline Depression Diabetes Gastric reflux High cholesterol Hydronephrosis Hypertension Injury of back Nephrolithiasis Non-smoker Pyelonephritis Shortness of breath on exertion Uncontrolled type 2 diabetes mellitus Uses wheelchair Home Medications amlodipine 10 mg PO DAILY 06/05/18 [History Last Taken 08/04/19] atorvastatin 40 mg PO DAILY 06/05/18 [History Last Taken 08/04/19] insulin aspart U-100 10 units SUBCUT TIDAC 08/04/19 [History Last Taken 08/04/19] lansoprazole 30 mg PO DAILY 11/03/20 [History Last Taken Unknown] insulin degludec 15 unit SQ DAILY #0 ml 11/07/20 [Rx Last Taken 08/04/19] pregabalin 50 mg PO TID #0 cap 11/07/20 [Rx Last Taken 08/04/19] ondansetron 4 mg PO TID PRN 3 Days #10 tab 12/02/20 [Rx Last Taken Unknown] docusate sodium [DOK] 100 mg PO DAILY 12/17/20 [History Last Taken Unknown] hydralazine 100 mg PO TID 12/17/20 [History Last Taken Unknown] amoxicillin-pot clavulanate 875 mg PO Q12H #20 tablet 01/13/21 [Rx Last Taken Unknown] Allergy/AdvReac Type Severity Reaction Status Date / Time blue dye Allergy PASS OUT Verified 01/13/21 17:30 Surgical History H/O: hysterectomy History of cholecystectomy History of cystoscopy Social History Smoking Status: Former smoker alcohol intake: never substance use type: does not use Physical Exam Narrative Alert awake oriented x 3 no obvious distress no pallor no icterus no JVD s1s2 no murmurs lungs clear abdomen soft no organomegaly no edema no cyanosis odom + Lab / Micro Data Result Diagrams: 01/15/21 05:29 01/15/21 05:29 Labs: Laboratory Results - last 24 hr 01/13/21 17:27: Vitamin B12 415 01/14/21 17:56: POC Glucose 76 01/14/21 17:57: D-Dimer Quant (PE/DVT) 4.07 H* 01/14/21 22:21: POC Glucose 224 H 01/15/21 00:30: Hgb 8.2 L, Hct 26.8 L 01/15/21 05:29: Sodium 144, Potassium 4.1, Chloride 117 H, Carbon Dioxide 18.0 L , Anion Gap 9, BUN 61 H, Creatinine 3.54 H, Estim Creat Clear Calc 10.68, Est GFR (MDRD) Af Amer 16 L, Est GFR (MDRD) Non-Af 13 L, BUN/Creatinine Ratio 17.2, Glucose 212 H, Calcium 7.0 L 01/15/21 05:29: WBC 17.7 H, RBC 2.57 L, Hgb 7.1 L, Hct 23.1 L, MCV 89.9, MCH 27.6, MCHC 30.7 L, RDW Std Deviation 52.2 H, RDW Coeff of Wade 15.8 H, Plt Count 164, MPV 10.2, Immature Gran % (Auto) 2.200 H, Neut % (Auto) 83.4 H, Lymph % (Auto) 10.3 L, [place] % (Auto) 3.8, Eos % (Auto) 0.2, Baso % (Auto) 0.1, Absolute Neuts (auto) 14.8 H, Absolute Lymphs (auto) 1.83, Nucleated RBC % 0, Anisocytosis 1+, Tear Drop Cells RARE, [place] Cells 2+ 01/15/21 05:29: Retic Count 1.24, Immature Retic Fraction 6.50, Retic Hgb Equivalent 26.0 L 01/15/21 05:29: Iron 11 L, TIBC 197 L, Iron Saturation 5.6 L, Ferritin 57, Lactate Dehydrogenase 179, Folate 6.20 01/15/21 08:13: POC Glucose 189 H 01/15/21 12:21: POC Glucose 215 H 01/15/21 15:00: Blood Type A POSITIVE, Antibody Screen NEGATIVE, Crossmatch See Detail 01/15/21 16:16: POC Glucose 189 H Micro: Microbiology 01/14/21 16:22 Urine Catheter - Odom Urine Culture - Preliminary Gram negative jacqueline Radiology Impression Venous Doppler Study 01/14/21 18:57 Interpretation Summary Acute deep venous thrombosis left soleus vein. Otherwise patent and compressible bilateral lower extremity deep veins Patent and compressible bilateral great saphenous veins Ordering Physician: Sean Vargas Referring Physician: MD Juan Pablo Shawn Performed By: Barbara Yang RVT Lung Scan-VQ NM 01/15/21 09:00 IMPRESSION: 1. NORMAL 99m Tc MAA pulmonary perfusion imaging examination, according to PIOPED II interpretive criteria. (Socharli et al, Radiology 246: 941, 2008 Socharli et al, J Nucl Med 49: 1741, 2008). 2. Central clumping of the aerosol may be secondary to obstructive airway mechanics and or clinical tachypnea. Electronically Signed: Reji Ramires DO at 10:09 EDT Tel , Service support ,
[2021-01-15] MEDS: Ipratropium/Albuterol Sulfate 3 ML AMPUL.NEB INHALATION (18:52)
[2021-01-15] MEDS: Furosemide 40 MG/4 ML Vial IV (19:22)
--- NOTE | 2021-01-15 20:14 | NURSING ---
Vitals documented under 1830 are for 2013. Unable to remove from TAR, documented at 2013 as well.
[2021-01-15] MEDS: Atorvastatin Calcium 40 MG Tablet PO (20:30)
[2021-01-15] MEDS: Ceftriaxone 1 GM/50 ML BAG IV (20:45)
[2021-01-15 20:51] LABS: Bedside Glucose 398 mg/dL (70-110)
--- NOTE | 2021-01-15 21:03 | PCM.HOSP.N ---
Hospitalist Note Called because nighttime blood sugar was greater than 300. I reviewed her medications and she was given 60 mg of IV Solu-Medrol today. I suspect this was in conjunction with her IV iron. We will give an extra 10 units Humalog x1 and repeat blood sugars as ordered.
[2021-01-15 21:19] LABS: Hematocrit 30.1 % (37-47); Hemoglobin 9.2 g/dL (12.0-15.0)
[2021-01-16] VITALS (7 sets, daily range): BP systolic 138–148; BP diastolic 52–66; PULSE 89–96; RESP 15–24; TEMP 36.5–36.9; O2SAT 90–96
[2021-01-16 06:51] LABS: Absolute Lymphocyte Count 0.81 X10^3/uL (0.83-4.51); Absolute Neutrophil Count 13.5 X10^3/uL (2.0-7.7); Basophil# 0.02 X10^3/uL; Basophil% 0.1 % (0-1); Hematocrit 29.8 % (37-47); Hemoglobin 9.3 g/dL (12.0-15.0); Lymphocyte # 0.81 X10^3/ul (0.83-4.51); Lymphocyte % 5.5 % (19-41); Mean Corp Hgb Conc 31.2 g/dL (32-36); Mean Corpuscular Hgb 27.3 pg (27.0-32.0); Mean Corpuscular Volume 87.4 fL (81-99); Mean Platelet Vol. 11.7 fl (6.2-12.0); Monocyte# 0.37 X10^3/uL; Monocyte% 2.5 % (0-10); NRBC Flagged by Analyzer 0.2 % (0-5); Neutrophil # 13.52 X10^3/uL (2.7-7.7); Neutrophil % 91.1 % (47-70); Platelet Count 184 K/mm3 (150-450); RBC Distribution Width CV 16.1 % (11.6-14.6); RBC Distribution Width SD 51.7 fl (35.1-43.9); Red Blood Count 3.41 M/mm3 (4.2-5.4); White Blood Count 14.8 K/mm3 (4.4-11.0)
[2021-01-16] MEDS: Ipratropium/Albuterol Sulfate 3 ML AMPUL.NEB INHALATION ×2 (06:55→12:22)
[2021-01-16] MEDS: Insulin Lispro 100 UNIT/ML INSULN.PEN 10 UNIT SC ×2 (07:06→11:30)
[2021-01-16] MEDS: Insulin Lispro 100 UNIT/ML INSULN.PEN SC ×2 (07:07→11:30)
[2021-01-16] MEDS: Pregabalin 50 MG Capsule PO ×2 (07:14→14:40)
[2021-01-16] MEDS: hydrALAZINE 50 MG Tablet 100 MG PO ×2 (07:14→14:33)
[2021-01-16 07:20] LABS: Anion Gap 12 (5-15); BUN 64 mg/dL (7-18); BUN/Creat Ratio 17.2 RATIO (10-20); Calcium,Total 7.4 mg/dL (8.5-10.1); Chloride 110 mmol/L (98-107); Creatinine, Serum 3.73 mg/dL (0.55-1.02); EST Glomerular Filtration Rate 13 mL/min (>60); Est Glom Filt Rate - Afr Amer 15 mL/min (>60); Estimated Creatinine Clearance 10.14 ml/min; Glucose 378 mg/dL (74-106); Potassium 4.6 mmol/L (3.5-5.1); Sodium Level 138 mmol/L (136-145)
[2021-01-16 07:25] LABS: Bedside Glucose 366 mg/dL (70-110)
[2021-01-16] MEDS: Docusate Sodium 100 MG Capsule PO (09:31)
[2021-01-16] MEDS: Pantoprazole Sodium 40 MG Tablet PO (09:32)
[2021-01-16] MEDS: amLODIPine 10 MG Tablet PO (09:32)
[2021-01-16 11:25] LABS: Bedside Glucose 381 mg/dL (70-110)
--- NOTE | 2021-01-16 11:51 | CASEMGMT ---
Addendum entered by Do Perez 01/16/21 14:51: Per Yanet @ [facility], pt was set up w/[facility] w/them in the past but then declined their services. She states if pt declines them a 2nd time, they will not be able to accept her again. Pt made aware and states she will allow them to work w/her this time. Addendum entered by Do Perez 01/16/21 14:46: D/C instructions and summary faxed to [facility] at this time. TC to Yanet @ [facility] and she was made aware pt being discharged home today. Pt's daughter unable to take pt home. [facility] Van transportation available to take pt @ 3:20 PM. Call placed to pt's friend, Ed, w/pt's permission. He states he will arrive @ pt's home around 3:15 and will assist pt into her home from the van when she arrives and will assist w/her care @ home. Addendum entered by Do Perez 01/16/21 12:22: Per Dr Ceballos, pt medically ready to be discharged today. Pt did allow SLAVA Hernandez, to work w/her and get her up to chair. Per Mary, pt weak and only able to go from bed to chair in room and SNF recommended. JOVANA SALGUERO in to room to speak w/pt again and she was made aware. JOVANA SALGUERO voiced concern w/pt for her safety and discussed SNF w/her again. She states adamantly, No, I will not go anywhere but home. Pt did give JOVANA SALGUERO permission to discuss concerns w/her daughter, but states, even if her daughter feels she should go to a SNF, that she still will not go to one, stating again, The only place I'm going is home. She states again that Ed will take care of her and states he will even stay overnight with her if needed. She states she has a W/C and he will take her from room to room, and help transfer her from chair to chair. Call placed to pt's daughterBrandi to discuss concerns w/pt discharging home. She was made aware of above--that pt is weak and only able to ambulate about 5 ft from bed to chair and SNF recommended by therapy, but that pt is adamant she does not want to go to a SNF and only wants to go home. Brandi voices understanding and states, If she wants to go home then that's her choice. She's stubborn. Brandi states she can take pt home today, but she needs to be at work by 2:45, but her brother may be able to take her home, if pt is not discharged by then. JOVANA SALGUERO informed her she would be contacted when pt is ready to be picked up. Brandi was also notified [facility] set up and SOC will be Mon or . Original Note: JOVANA SALGUERO NOTE: PT/OT notes reviewed. Pt only ambulated 12ft yesterday. JOVANA SALGUERO spoke w/Isi OT, who worked w/pt today. Per Isi, pt only walked from bed to bathroom and was weak/shaky and she voiced concerns w/pt going home. Additional therapy recommended. Per Mary PEDERSEN, who was working w/pt this AM, pt told her she did not want to get OOB to work w/her today. JOVANA SALGUERO encouraged pt, for her safety, to get up w/PT today so they could work w/her more and assess her strength today and she was agreeable to getting working w/PT. PT made aware and will be back to work w/pt. JOVANA SALGUERO to room to discuss discharge planning w/pt. Asked pt if she would be willing to go to a SNF, as she is weak. Pt states, No. I'm going home. I miss my dog. I'm going home. Pt confirms that Ed, her friend, is with her most of the time and helps assist as needed and her daughter will come pick her up to take her home. Pt states, I live in an apartment all on one floor and I'll do fine w/being home. I'm going home. Discussed option of [facility] and she is agreeable. She states she would also like an aide, if available, but if not, her friend, Ed, can assist w/bathing/dressing. Pt was provided with list of [facility] providers including quality and resource use data and consistent with the patient's preferred geographic region, medical needs, and insurance network. The pt's states she has no preference. Call placed to [facility] and spoke w/Yanet. Referral made for SN, PT/OT. She states they do not have aides available. She was made aware anticipate d/c today or tomorrow. She states they are able to accept pt and SOC would be Mon or Tues. Pt ,made aware. She denies having any other discharge planning needs/concerns at this time. Tona SMITH, aware pt would like her Passport Isela SALGUERO notified that she would like an aide. Nolan BOX RN, CM .
--- NOTE | 2021-01-16 12:11 | CASEMGMT ---
SW called Isela Desai, message left letting her know pt may be going home today, and that pt would like to have aide services again through [employer]. TIMUR Alan
--- NOTE | 2021-01-16 13:11 | PN.RENAL_ITS ---
Subjective Subjective Following for acute kidney injury on chronic kidney disease. The patient denies current chest pain, shortness of breath, nausea, or vomiting. Appetite has been fair. Objective Data Objective Data Vital Signs: Vital Signs Temp Pulse Resp BP Pulse Ox 98.5 F 89 15 138/62 H 96 01/16/21 08:10 01/16/21 12:24 01/16/21 12:24 01/16/21 08:10 01/16/21 08:10 Oxygen Flow Rate (L/min) 2 Oxygen Delivery Method Room Air Weight: 63.5 kg Body Mass Index (BMI) 26.4 Intake & Output: Intake and Output for Last 24 Hours 01/14/21 01/15/21 01/16/21 23:59 23:59 23:59 Intake Total 3301.67 / 3601.67 3567.50 / 3817.50 250 / 250 Output Total 450 / 700 800 / 1300 1450 / 1450 Balance 2851.67 / 2901.67 2767.50 / 2517.50 -1200 / -1200 Lab / Micro Data Result Diagrams: 01/16/21 05:34 01/16/21 05:34 Labs: Laboratory Results - last 24 hr 01/15/21 15:00: Blood Type A POSITIVE, Antibody Screen NEGATIVE, Crossmatch See Detail 01/15/21 16:16: POC Glucose 189 H 01/15/21 20:28: POC Glucose 398 H 01/15/21 20:55: Hgb 9.2 L, Hct 30.1 L 01/16/21 05:34: Sodium 138, Potassium 4.6, Chloride 110 H, Carbon Dioxide 16.0 L , Anion Gap 12, BUN 64 H, Creatinine 3.73 H, Estim Creat Clear Calc 10.14, Est GFR (MDRD) Af Amer 15 L, Est GFR (MDRD) Non-Af 13 L, BUN/Creatinine Ratio 17.2, Glucose 378 H, Calcium 7.4 L 01/16/21 05:34: WBC 14.8 H, RBC 3.41 L, Hgb 9.3 L, Hct 29.8 L, MCV 87.4, MCH 27.3, MCHC 31.2 L, RDW Std Deviation 51.7 H, RDW Coeff of Wade 16.1 H, Plt Count 184, MPV 11.7, Immature Gran % (Auto) 0.800, Neut % (Auto) 91.1 H, Lymph % (Auto) 5.5 L, [place] % (Auto) 2.5, Eos % (Auto) 0.0, Baso % (Auto) 0.1, Absolute Neuts (auto) 13.5 H, Absolute Lymphs (auto) 0.81 L, Nucleated RBC % 0.2 01/16/21 07:06: POC Glucose 366 H 01/16/21 11:23: POC Glucose 381 H Micro: Microbiology 01/14/21 00:15 Blood Culture (Wb) - Anticubital Right Blood Culture - Preliminary No growth in 48 hours. 01/14/21 00:20 Blood Culture (Wb) - Anticubital Left Blood Culture - Preliminary No growth in 48 hours. 01/14/21 16:22 Urine Catheter - Alexandre Urine Culture - Preliminary Gram negative jacqueline Gram negative jacqueline#2 01/14/21 09:05 Nasal Secretion SARS-CoV-2 Antigen (Rapid) - Final Radiography Diagnostic Testing: Radiology Impression Venous Doppler Study 01/14/21 18:57 Interpretation Summary Acute deep venous thrombosis left soleus vein. Otherwise patent and compressible bilateral lower extremity deep veins Patent and compressible bilateral great saphenous veins Ordering Physician: Sean Vargas Referring Physician: MD Juan Pablo Shawn Performed By: Barbara Yang RVT Physical Exam Narrative Alert awake oriented x 3 no obvious distress no pallor no icterus no JVD s1s2 no murmurs lungs clear abdomen soft no organomegaly no edema no cyanosis Assessment & Plan Assessment/Plan (1) EMANUEL (acute kidney injury): (2) Hydronephrosis: (3) Metabolic acidosis: (4) Chronic kidney disease, stage 3b: PLAN: -The patient has EMANUEL on CKD. Baseline creatinine is around 1.8 to 2.0 in the past. -EMANUEL is likely due to ATN related to UTI/sepsis. -I doubt that EMANUEL is from obstruction since hydronephrosis was unilateral. Moreover, left ureter was stented by urology on 01/14/2021. The patient is nonoliguric. -Although serum creatinine has increased in the last 24 hours, the drop in GFR is not that large. -There is no overt uremic signs or symptoms. She is not hyperkalemic. There is no volume overload on exam. Although there is metabolic acidosis, serum bicarbonate level is not severely low. Therefore, there is no urgent need for kidney replacement therapy. -Encourage oral fluid and solute intake to avoid volume depletion -If patient is not discharged, we will arrange for outpatient office follow-up. However, if she is not discharged, we will recheck serum creatinine again yaniv rrow.
--- NOTE | 2021-01-16 13:29 | PCM.DC ---
Discharge Instructions Diet Discharge Diet: 2000 Calorie Control Diet Activity Discharge Activity: Return to Normal Activity Dressing / Incision Call your doctor if you observe: Fever of 101 or Higher and Inability to urinate Follow Up Care Test Results: Test results from this visit will be discussed in further detail at your follow-up appointment, if applicable. Discharge Plan Admission Admit Date/Time: 01/13/21 23:55 Primary Reason for Your Visit: ureteral stone Attending Provider: Clay Ceballos Primary Care Provider: Shawn Almeida Consulting Providers: Ashlyn Kaminski ; Delmi Siegel Instructions Patient Instructions: ED CYSTITIS Female Adult, ED Kidney Stone w/ Colic Additional Instructions / Restrictions: You will need a repeat ultrasound (duplex) of your left leg next week and the following week to monitor the blood clot in your leg. You will need to follow up with your primary care physician to coordinate this. Discharge Orders/Prescriptions Prescriptions: New tamsulosin 0.4 mg Capsule 0.4 mg PO DAILY@1730 Qty: 14 RF: 0 ciprofloxacin HCl [Cipro] 250 mg tablet 250 mg PO QODAY Qty: 3 RF: 0 Continued atorvastatin 40 MG tablet 40 mg PO DAILY RF: 0 amlodipine 10 MG tablet 10 mg PO DAILY RF: 0 insulin aspart U-100 100 UNITS/ML insulin pen 10 units subcut TIDAC RF: 0 lansoprazole 30 mg Capsule,Delayed Release(Dr/Ec) 30 mg PO DAILY RF: 0 pregabalin 50 MG capsule 50 mg PO TID Qty: 0 RF: 0 insulin degludec 100 UNIT/ML insulin pen 15 unit SQ DAILY Qty: 0 RF: 0 hydralazine 50 mg tablet 100 mg PO TID RF: 0 docusate sodium [DOK] 100 MG capsule 100 mg PO DAILY RF: 0 ondansetron 4 mg tablet,disintegrating 4 mg PO TID PRN (Reason: nausea and vomiting) 3 Days Qty: 10 RF: 0 Referrals / Follow Up: Ashlyn Kaminski MD [STAFF PHYSICIAN] - 3-5 Days Shawn Almeida MD [Primary Care Provider] - 3-5 Days Disposition Disposition (needs filled in before D/C Order can be placed): Home Health Service
--- NOTE | 2021-01-16 13:51 | PCM.DC.SUM ---
Providers Date of Admission: 01/13/21 Primary Care Physician: Dr. Shawn Almeida MD Consultations 01/14/21 01:30 Consult: Urology Routine Consulting Provider: Ashlyn Kaminski Reason for Consult: L hydro and UTI--> PKTY EMERGENT Consult: No Notified: Yes Date Notified: 01/14/21 Time Notified: 07:05 Method of Notification: Verbal 01/15/21 14:29 Consult: Nephrology Routine Consulting Provider: Delmi Siegel Reason for Consult: EMANUEL ON CKD stage 3b, Cr 3.54. left ureteric stent EMERGENT Consult: No Notified: Yes Date Notified: 01/15/21 Time Notified: 14:29 Method of Notification: Answering Service Reason For Visit: HYDRONEPHROSIS/UTI Diagnosis Discharge Diagnosis (1) EMANUEL (acute kidney injury): Status: Acute Code(s): N17.9 - Acute kidney failure, unspecified (2) Hydronephrosis: Status: Acute Code(s): N13.30 - Unspecified hydronephrosis (3) Metabolic acidosis: Status: Acute Code(s): E87.2 - Acidosis (4) Chronic kidney disease, stage 3b: Status: Acute Code(s): N18.32 - Chronic kidney disease, stage 3b Medications at Discharge Home Medications amlodipine 10 mg PO DAILY 06/05/18 atorvastatin 40 mg PO DAILY 06/05/18 insulin aspart U-100 10 units SUBCUT TIDAC 08/04/19 lansoprazole 30 mg PO DAILY 11/03/20 insulin degludec 15 unit SQ DAILY #0 ml 11/07/20 pregabalin 50 mg PO TID #0 cap 11/07/20 ondansetron 4 mg PO TID PRN 3 Days #10 tab 12/02/20 docusate sodium [DOK] 100 mg PO DAILY 12/17/20 hydralazine 100 mg PO TID 12/17/20 ciprofloxacin HCl [Cipro] 250 mg PO QODAY #3 tab 01/16/21 tamsulosin 0.4 mg PO DAILY@1730 #14 cap 01/16/21 Hospital Course Operations None Procedures - (cystoscopy with left ureteral stent.) Summary of Care Provided Minutes Spent on Discharge: 32 Hospital Course: 75-year-old female presents with back pain. Patient was found to have left hydronephrosis and submillimeter nonobstructing stone. Patient was seen by urology and underwent a cystoscopy with a left ureteral stent. Patient tolerated procedure well. She was seen by nephrology as well. Patient had a positive urinalysis but urine culture showed gram-negative rods less than 1000. Patient will continue with ciprofloxacin and renally dosed for the next 3 doses. Patient will follow up with urology as outpatient. Patient has anemia with of chronic disease. Patient was found to have a soleal DVT on the left. Patient will need to have serial ultrasounds the patient does endorse that she does have falls. Despite disc and poor performance status overall, patient wants to go home. I feel the patient is too much of a fall risk to warrant being put on anticoagulation as well patient will need to have serial ultrasounds performed of her left lower extremity to see if there is any propagation. If no evidence of propagation no additional work-up would be necessary but if does have evidence then she would require an IVC filter. Physical Exam Const alert Resp normal respiratory effort, no retractions, no use of accessory muscles and clear to auscultation bilaterally Cardio regular rate, regular rhythm, S1 normal heart sound and S2 normal heart sound GI normal to inspection, nondistended, normoactive bowel sounds, soft to palpation, non-tender and non-distended Extremity normal to inspection Weight / BMI Weight Weight: 63.5 kg Body Mass Index (BMI) 26.4 ABG / Lab / Microbiology Data Result Diagrams: 01/16/21 05:34 01/16/21 05:34 Laboratory: Laboratory Results - last 24 hr 01/15/21 15:00: Blood Type A POSITIVE, Antibody Screen NEGATIVE, Crossmatch See Detail 01/15/21 16:16: POC Glucose 189 H 01/15/21 20:28: POC Glucose 398 H 01/15/21 20:55: Hgb 9.2 L, Hct 30.1 L 01/16/21 05:34: Sodium 138, Potassium 4.6, Chloride 110 H, Carbon Dioxide 16.0 L, Anion Gap 12, BUN 64 H, Creatinine 3.73 H, Estim Creat Clear Calc 10.14, Est GFR (MDRD) Af Amer 15 L, Est GFR (MDRD) Non-Af 13 L, BUN/Creatinine Ratio 17.2, Glucose 378 H, Calcium 7.4 L 01/16/21 05:34: WBC 14.8 H, RBC 3.41 L, Hgb 9.3 L, Hct 29.8 L, MCV 87.4, MCH 27.3, MCHC 31.2 L, RDW Std Deviation 51.7 H, RDW Coeff of Wade 16.1 H, Plt Count 184, MPV 11.7, Immature Gran % (Auto) 0.800, Neut % (Auto) 91.1 H, Lymph % (Auto) 5.5 L, [place] % (Auto) 2.5, Eos % (Auto) 0.0, Baso % (Auto) 0.1, Absolute Neuts (auto) 13.5 H, Absolute Lymphs (auto) 0.81 L, Nucleated RBC % 0.2 01/16/21 07:06: POC Glucose 366 H 01/16/21 11:23: POC Glucose 381 H Microbiology: Microbiology 01/14/21 00:15 Blood Culture (Wb) - Anticubital Right Blood Culture - Preliminary No growth in 48 hours. 01/14/21 00:20 Blood Culture (Wb) - Anticubital Left Blood Culture - Preliminary No growth in 48 hours. 01/14/21 16:22 Urine Catheter - Alexandre Urine Culture - Preliminary Gram negative jacqueline Gram negative jacqueline#2 01/14/21 09:05 Nasal Secretion SARS-CoV-2 Antigen (Rapid) - Final Radiography Diagnostic Testing: Radiology Impression Venous Doppler Study 01/14/21 18:57 Interpretation Summary Acute deep venous thrombosis left soleus vein. Otherwise patent and compressible bilateral lower extremity deep veins Patent and compressible bilateral great saphenous veins Ordering Physician: Sean Vargas Referring Physician: MD Juan Pablo Shawn Performed By: Barbara Yang RVT D/C Instructions Discharge Diet: 2000 Calorie Control Diet Call your doctor if you observe: Fever of 101 or Higher and Inability to urinate Meaningful Use Info Meaningful Use Diagnoses (Choose all that apply): None applicable Discharge Plan Admission Admit Date/Time: 01/13/21 23:55 Primary Reason for Your Visit: ureteral stone Attending Provider: Clay Ceballos Primary Care Provider: Shawn Almeida Consulting Providers: Ashlyn Kaminski ; Delmi Siegel Instructions Patient Instructions: ED CYSTITIS Female Adult, ED Kidney Stone w/ Colic Additional Instructions / Restrictions: You will need a repeat ultrasound (duplex) of your left leg next week and the following week to monitor the blood clot in your leg. You will need to follow up with your primary care physician to coordinate this. Discharge Orders/Prescriptions Prescriptions: New tamsulosin 0.4 mg Capsule 0.4 mg PO DAILY@1730 Qty: 14 RF: 0 ciprofloxacin HCl [Cipro] 250 mg tablet 250 mg PO QODAY Qty: 3 RF: 0 Continued atorvastatin 40 MG tablet 40 mg PO DAILY RF: 0 amlodipine 10 MG tablet 10 mg PO DAILY RF: 0 insulin aspart U-100 100 UNITS/ML insulin pen 10 units subcut TIDAC RF: 0 lansoprazole 30 mg Capsule,Delayed Release(Dr/Ec) 30 mg PO DAILY RF: 0 pregabalin 50 MG capsule 50 mg PO TID Qty: 0 RF: 0 insulin degludec 100 UNIT/ML insulin pen 15 unit SQ DAILY Qty: 0 RF: 0 hydralazine 50 mg tablet 100 mg PO TID RF: 0 docusate sodium [DOK] 100 MG capsule 100 mg PO DAILY RF: 0 ondansetron 4 mg tablet,disintegrating 4 mg PO TID PRN (Reason: nausea and vomiting) 3 Days Qty: 10 RF: 0 Referrals / Follow Up: Ashlyn Kaminski MD [STAFF PHYSICIAN] - 3-5 Days Shawn Almeida MD [Primary Care Provider] - 3-5 Days Disposition Disposition (needs filled in before D/C Order can be placed): Home Health Service Charges/Coding Visit Charges Inpatient E&M: 87407 Disch Hosp
== END 2021-01-16 15:20 | disposition home health service (06) | DRG 463 ==
LOC: ED 21:27 → MS2 01-14 00:15
PROVIDERS: Internal Medicine; Urology; Admitting Provider Internal Medicine; Emergency Provider Emergency Medicine; PCP Family Medicine
PROC: 0T778DZ Dilation of Left Ureter with Intraluminal Device, Via Natural or Artificial Opening Endoscopic (ICD-10-PCS; principal; 2021-01-14 15:50)
DX: N13.6 Pyonephrosis (principal); N17.9 Acute kidney failure, unspecified; N18.32 Chronic kidney disease, stage 3b; E11.22 Type 2 diabetes mellitus with diabetic chronic kidney disease; I12.9 Hypertensive chronic kidney disease with stage 1 through stage 4 chronic kidney disease, or unspecified chronic kidney disease; I82.462 Acute embolism and thrombosis of left calf muscular vein; K21.9 Gastro-esophageal reflux disease without esophagitis; D63.8 Anemia in other chronic diseases classified elsewhere; E86.0 Dehydration; E03.9 Hypothyroidism, unspecified; E78.00 Pure hypercholesterolemia, unspecified; Z79.899 Other long term (current) drug therapy; Z79.4 Long term (current) use of insulin; Z87.891 Personal history of nicotine dependence
CPT/HCPCS: 36415; 74176; 76000; 78582; 80048; 80053; 81001; 82607; 82728; 82746; 82962; 83540; 83550; 83605; 83615; 83735; 84100; 85014; 85018; 85025; 85045; 85379; 86850; 86900; 86901; 86920; 86922; 87040; 87077; 87086; 87088; 87186; 87426; 93005; 93970; 94640; 97110; 97162; 97166; 97530; 99251; 99285; A9540; A9567; J7030; J7050; P9016; A4216; C1769; C2625; G0463; J1940; J2405; J2916

== ENCOUNTER 2021-01-18 12:07 | Inpatient (IN) | payer MEDICAID, SELFPAY ==
[2021-01-18] VITALS (13 sets, daily range): BP systolic 135–187; BP diastolic 57–78; PULSE 80–100; RESP 13–28; TEMP 36.3–37.1; O2SAT 87–96; BMI 28.8; BMI 27.4
--- NOTE | 2021-01-18 12:38 | EKG12_ITS ---
Test Reason : Blood Pressure : / mmHG Vent. Rate : 095 BPM Atrial Rate : 095 BPM P-R Int : 164 ms QRS Dur : 128 ms QT Int : 422 ms P-R-T Axes : 062 -18 072 degrees QTc Int : 530 ms Normal sinus rhythm Right bundle branch block Abnormal ECG Confirmed by FLEX ROWELL, FREEMAN ([id number]), publication editor GULSHAN TRAYLOR ([id number]) on 01/19/2021 12:58:00 PM Referred By: HUMAIRA Confirmed By:FREEMAN MCCORD MD
--- NOTE | 2021-01-18 12:51 | EDS_ITS ---
HPI History of Present Illness Chief Complaint: Shortness of Breath Narrative Narrative: 75-year-old female presenting with shortness of breath which she states has been going on for about a week. She states she has not had a known fever. She does not have chills or body aches. Patient states that she recently had a visitor who was smoking in the house this made her breathing worse. She denies history of COPD or asthma. She is a non-smoker. Patient denies chest pain. She denies leg swelling. Patient states that she has had some intermittent nausea and vomiting as well as abdominal cramping. She does state that she was recently in the hospital for breathing problems. [facility] Medical History Chronic kidney disease, stage 3b Cognitive decline Depression Diabetes Gastric reflux High cholesterol Hydronephrosis Hypertension Injury of back Nephrolithiasis Non-smoker Pyelonephritis Shortness of breath on exertion Uncontrolled type 2 diabetes mellitus Uses wheelchair Home Medications amlodipine 10 mg PO DAILY 06/05/18 [History Last Taken 08/04/19] atorvastatin 40 mg PO DAILY 06/05/18 [History Last Taken 08/04/19] insulin aspart U-100 10 units SUBCUT TIDAC 08/04/19 [History Last Taken 08/04/19] lansoprazole 30 mg PO DAILY 11/03/20 [History Last Taken Unknown] insulin degludec 15 unit SQ DAILY #0 ml 11/07/20 [Rx Last Taken 08/04/19] pregabalin 50 mg PO TID #0 cap 11/07/20 [Rx Last Taken 08/04/19] ondansetron 4 mg PO TID PRN 3 Days #10 tab 12/02/20 [Rx Last Taken Unknown] docusate sodium [DOK] 100 mg PO DAILY 12/17/20 [History Last Taken Unknown] hydralazine 100 mg PO TID 12/17/20 [History Last Taken Unknown] ciprofloxacin HCl [Cipro] 250 mg PO QODAY #3 tab 01/16/21 [Rx Last Taken Unknown] tamsulosin 0.4 mg PO DAILY@1730 #14 cap 01/16/21 [Rx Last Taken Unknown] Allergy/AdvReac Type Severity Reaction Status Date / Time blue dye Allergy PASS OUT Verified 01/18/21 12:11 Surgical History H/O: hysterectomy History of cholecystectomy History of cystoscopy Social History Smoking Status: Former smoker alcohol intake: never substance use type: does not use ROS ROS ED Constitutional Constitutional ED: Denies chills or fever(s) Eyes Eyes: Denies blurry vision or diplopia ENT ENT ED: Denies rhinorrhea or sore throat Cardiovascular Cardiovascular: Denies chest pain or palpitations Respiratory/Chest Respiratory/Chest: Reports cough, dyspnea and dyspnea on exertion Gastrointestinal Gastrointestinal: Denies abdominal pain, nausea or vomiting Genitourinary Genitourinary ED: Denies dysuria or hematuria Musculoskeletal Musculoskeletal: Denies arthralgias, back pain, myalgias or neck pain Integumentary Denies rash Neurologic Neurologic: Denies headache(s) or paresthesias EXAM Physical Exam Const Vital Signs: 01/18/21 12:11 01/18/21 12:53 01/18/21 13:42 Temperature 97.3 F L 98 F Temperature Source Temporal Temporal Pulse Rate 100 94 Respiratory Rate 28 H 22 H 22 H Respiratory Effort Short of Breath Labored Accessory Muscle Use Respiratory Depth Normal Respiratory Pattern Normal Blood Pressure 187/78 H 155/73 H Blood Pressure Mean 114 100 Pulse Ox 94 96 95 Oxygen Delivery Method Room Air Nasal Cannula Nasal Cannula Oxygen Flow Rate (L/min) 2 2 01/18/21 13:44 01/18/21 14:28 01/18/21 15:35 Temperature Temperature Source Pulse Rate 95 Respiratory Rate 24 H 27 H Respiratory Effort Respiratory Depth Respiratory Pattern Tachypnea Tachypnea Blood Pressure Blood Pressure Mean Pulse Ox 87 Oxygen Delivery Method Room Air Oxygen Flow Rate (L/min) 01/18/21 15:55 01/18/21 16:51 Temperature 98.8 F Temperature Source Temporal Pulse Rate 96 Respiratory Rate 26 H 24 H Respiratory Effort Respiratory Depth Respiratory Pattern Blood Pressure 135/67 H Blood Pressure Mean 89 Pulse Ox 92 92 Oxygen Delivery Method Nasal Cannula Nasal Cannula Oxygen Flow Rate (L/min) 3 3 Positive obese General Appearance ED: NAD; Negative for pallor Nutritional Appearance: obese HEENT Reports dry mucous membranes Negative for atraumatic Mouth ED: Yes dry mucous membranes Mouth: dry mucous membranes Eyes PERRL and EOMs intact bilaterally Neck no lymphadenopathy and supple Resp Resp Narrative: Tachypneic without accessory muscle use. Auscultation: Negative for wheezes Cardio regular rhythm Rate: tachycardic Neuro CN's II-XII intact bilaterally Sensorium / Orientation: alert Skin General Skin Exam: Negative for jaundice or pallor MDM MDM MDM Narrative Medical decision making narrative: Patient presenting with shortness of breath. He states he is not having chest pain. EKG performed on arrival shows a sinus rhythm of 95 bpm without signs of ischemic change on my interpretation. Chest x-ray on my interpretation shows what looks to be pneumonia in the lingula. Radiologist agree. CBC shows white blood cell count 11.0, hemoglobin 10.1, macular 2.1, platelets 251. Creatinine is 3.24 and has not significantly improved since her previous admission. Lactic acid negative at 0.7. Troponin is 80 and therefore within normal limits currently. During her stay she did get some breathing treatments for some wheezing that she had. Her COVID-19 PCR is pending and given that her symptoms have been ongoing for about a week I do not believe the rapid antigen would be the test of choice. Patient has not made a urine sample yet. Patient was ambulated without oxygen and dropped to 86%. Given this I will admit her to the hospitalist. Patient is stable on 3 L of oxygen via nasal cannula currently. Hospitalist requested a procalcitonin. We will hold antibiotics unless this is elevated. Impression: 1. Dyspnea 2. Lingular pneumonia 3. Hypoxia Lab Data Attestation: I reviewed the patient's lab results. Labs: Laboratory Results - last 24 hr 01/18/21 01/18/21 01/18/21 12:47 12:47 12:47 WBC 11.0 RBC 3.68 L Hgb 10.1 L Hct 32.1 L MCV 87.2 MCH 27.4 MCHC 31.5 L RDW Std Deviation 51.9 H RDW Coeff of Wade 16.1 H Plt Count 251 MPV 10.8 Immature Gran % (Auto) 3.300 H Neut % (Auto) 77.4 H Lymph % (Auto) 11.4 L [place] % (Auto) 7.2 Eos % (Auto) 0.4 Baso % (Auto) 0.3 Absolute Neuts (auto) 8.6 H Absolute Lymphs (auto) 1.26 Nucleated RBC % 0.2 PT INR APTT Sodium 147 H Potassium 3.5 Chloride 116 H Carbon Dioxide 20.0 L Anion Gap 11 BUN 65 H Creatinine 3.24 H Estim Creat Clear Calc 11.67 Est GFR (MDRD) Af Amer 18 L Est GFR (MDRD) Non-Af 15 L BUN/Creatinine Ratio 20.1 H Glucose 111 H Lactic Acid 0.7 Calcium 8.3 L Total Bilirubin 0.40 AST 14 L ALT 18 Alkaline Phosphatase 143 H Troponin I High Sens 80 H Total Protein 7.2 Albumin 2.6 L Globulin 4.6 H Albumin/Globulin Ratio 0.6 L 01/18/21 01/18/21 13:00 13:30 WBC RBC Hgb Hct MCV MCH MCHC RDW Std Deviation RDW Coeff of Wade Plt Count MPV Immature Gran % (Auto) Neut % (Auto) Lymph % (Auto) [place] % (Auto) Eos % (Auto) Baso % (Auto) Absolute Neuts (auto) Absolute Lymphs (auto) Nucleated RBC % PT Cancelled 15.2 H INR Cancelled 1.3 APTT Cancelled 32.4 Sodium Potassium Chloride Carbon Dioxide Anion Gap BUN Creatinine Estim Creat Clear Calc Est GFR (MDRD) Af Amer Est GFR (MDRD) Non-Af BUN/Creatinine Ratio Glucose Lactic Acid Calcium Total Bilirubin AST ALT Alkaline Phosphatase Troponin I High Sens Total Protein Albumin Globulin Albumin/Globulin Ratio Radiography Diagnostic Testing: Clinical Impression(s) from Imaging Studies Chest X-Ray 01/18/21 13:15 IMPRESSION: Lingular pneumonia. Electronically Signed: Reji Nowak MD at 14:17 EDT Tel , Service support , Discharge Plan Triage Chief Complaint: Shortness of Breath ED Provider: Tremayne Hobbs Dx/Rx/DC Orders Prescriptions: No Action atorvastatin 40 MG tablet 40 mg PO DAILY RF: 0 amlodipine 10 MG tablet 10 mg PO DAILY RF: 0 insulin aspart U-100 100 UNITS/ML insulin pen 10 units subcut TIDAC RF: 0 lansoprazole 30 mg Capsule,Delayed Release(Dr/Ec) 30 mg PO DAILY RF: 0 pregabalin 50 MG capsule 50 mg PO TID Qty: 0 RF: 0 insulin degludec 100 UNIT/ML insulin pen 15 unit SQ DAILY Qty: 0 RF: 0 hydralazine 50 mg tablet 100 mg PO TID RF: 0 docusate sodium [DOK] 100 MG capsule 100 mg PO DAILY RF: 0 ondansetron 4 mg tablet,disintegrating 4 mg PO TID PRN (Reason: nausea and vomiting) 3 Days Qty: 10 RF: 0 tamsulosin 0.4 mg Capsule 0.4 mg PO DAILY@1730 Qty: 14 RF: 0 ciprofloxacin HCl [Cipro] 250 mg tablet 250 mg PO QODAY Qty: 3 RF: 0 Primary Care Provider: Shawn Almeida
[2021-01-18 13:01] LABS: Absolute Lymphocyte Count 1.26 X10^3/uL (0.83-4.51); Absolute Neutrophil Count 8.6 X10^3/uL (2.0-7.7); Basophil# 0.03 X10^3/uL; Basophil% 0.3 % (0-1); Eosinophil# 0.04 X10^3/uL; Eosinophils% 0.4 % (0-5); Hematocrit 32.1 % (37-47); Hemoglobin 10.1 g/dL (12.0-15.0); Lymphocyte # 1.26 X10^3/ul (0.83-4.51); Lymphocyte % 11.4 % (19-41); Mean Corp Hgb Conc 31.5 g/dL (32-36); Mean Corpuscular Hgb 27.4 pg (27.0-32.0); Mean Corpuscular Volume 87.2 fL (81-99); Mean Platelet Vol. 10.8 fl (6.2-12.0); Monocyte% 7.2 % (0-10); NRBC Flagged by Analyzer 0.2 % (0-5); Neutrophil # 8.55 X10^3/uL (2.7-7.7); Neutrophil % 77.4 % (47-70); Platelet Count 251 K/mm3 (150-450); RBC Distribution Width CV 16.1 % (11.6-14.6); RBC Distribution Width SD 51.9 fl (35.1-43.9); Red Blood Count 3.68 M/mm3 (4.2-5.4)
--- NOTE | 2021-01-18 13:10 | NURSING ---
BLUE TOP HEMOLIZED. THEY WILL REPRINT LABELS
--- NOTE | 2021-01-18 13:15 | RAD_ITS ---
STUDY: X-RAY CHEST REASON FOR EXAM: Female, 75 years old. dyspnea TECHNIQUE: Single AP portable view of the chest. COMPARISON: 11/03/2020 FINDINGS: Alveolar opacity in the lower left lung which silhouettes left heart border consistent with lingular pneumonia. There is no demonstrated pleural abnormality. Normal size heart. Normal mediastinum and roya. Normal visualized pulmonary arteries. Normal visualized aortic arch and descending thoracic aorta. Normal visualized thoracic spine. Normal visualized ribs, clavicles, and shoulders. There is no demonstrated abnormality of the visualized soft tissue structures of the upper abdomen. RAD/Chest 1 View (Portable) IMPRESSION: Lingular pneumonia. Electronically Signed: Reji Nowak MD at 14:17 EDT Tel , Service support ,
[2021-01-18 13:19] LABS: ALB/GLOB Ratio 0.6 RATIO (0.9-2.4); AST(SGOT) 14 U/L (15-37); Alanine Aminotransfer ALT/SGPT 18 U/L (13-56); Albumin, Serum 2.6 g/dL (3.2-5.0); Alkaline Phosphatase 143 U/L (45-117); Anion Gap 11 (5-15); BUN 65 mg/dL (7-18); BUN/Creat Ratio 20.1 RATIO (10-20); Calcium,Total 8.3 mg/dL (8.5-10.1); Chloride 116 mmol/L (98-107); Creatinine, Serum 3.24 mg/dL (0.55-1.02); EST Glomerular Filtration Rate 15 mL/min (>60); Est Glom Filt Rate - Afr Amer 18 mL/min (>60); Estimated Creatinine Clearance 11.67 ml/min; Globulin 4.6 g/dL (2.2-4.2); Glucose 111 mg/dL (74-106); Potassium 3.5 mmol/L (3.5-5.1); Protein, Total 7.2 g/dL (6.4-8.2); Sodium Level 147 mmol/L (136-145); Troponin-I HS 80 pg/mL (3.0-54.0)
[2021-01-18 13:36] LABS: Lactic Acid 0.7 mmol/L (0.4-1.9)
[2021-01-18 13:50] LABS: International Normalized Ratio 1.3; Partial Thromboplast Time 32.4 Seconds (24.1-36.2); Prothrombin Time (Protime)PT. 15.2 SECONDS (11.7-14.9)
[2021-01-18] MEDS: Albuterol 2.5 MG/3 ML VIAL.NEB. INHALATION (14:28)
[2021-01-18] MEDS: Ipratropium/Albuterol Sulfate 3 ML AMPUL.NEB INHALATION (14:28)
[2021-01-18] MEDS: Ondansetron 4 MG/2 ML Vial IV (14:43)
--- NOTE | 2021-01-18 16:53 | NURSING ---
MED SURG PNEUMONIA, HYPOXIA WHITE
--- NOTE | 2021-01-18 17:07 | PCM.HP.STD ---
HPI - General General Date of Admission: 01/18/21 Date of Service: 01/18/21 Chief Complaint: New onset cough, dyspnea, N/V, poor intake, abdominal discomfort, fatigue and malaise since discharge. HPI Narrative The patient is a 75 y/o F w/ PMHx: Former Tobacco use, Chronic anemia, Anxiety and Depression, Mild cognitive decline, HTN, HLD, Hypothyroidism, Diabetes mellitus type II with neuropathy, CKD stage IIIb, recently admitted 01/14/21-01/16/21 with initial concern for acute cystitis however UCx w/ only 1,000 CFU GNR with left-sided hydronephrosis and acute kidney injury on CKD stage IIIb with urology and nephrology consultations with placement of L ureteral stent placement discharged on cipro renally dosed x 3 doses as well as flomax with also noted acute L soleal DVT with recommended continued serial US to assure not progressing with significant high fall risk therefore anticoagulation was deferred but noted if progressed would require IVCF placement who now re-presents to the [facility] ED on 01/18/21 with history of new onset over the last couple days fatigue, malaise, cough which is nonproductive with dyspnea, worse with any exertional attempts with nausea and emesis, poor oral intake and no appetite prompting evaluation. Work-up in the ED included T 97.3, heart rate 100, BP 187/78, respiratory rate 28, 94% on room air; however, re-evaluation per RN with noted 87% on RA-->with improvement to 96% on 2 L nasal cannula, CBC with WC 11, hemoglobin 10.1, platelet 251 with left shift, coags with PT 15.2, INR 1.3, PTT 32.4, CMP with sodium 147, chloride 116,, DEXA 20, BUN/creatinine 65/3.24, glucose 111, lactic acid 0.7, AST/ALT 14/18, alk phos 143, high-sensitivity troponin 80, chest x-ray with lingular pneumonia, EKG sinus rhythm with no acute evidence of ischemia, UA pending upon requested evaluation of patient, blood culture x 2 pending per ED, urine culture pending per ED, unilateral duplex ultrasound requested per ED physician and pending upon evaluation although patient had 01/15/2021 duplex ultrasound with left soleus DVT. In the ED patient administered Zofran, albuterol and DuoNeb therapies. COVID PCR pending upon evaluation. FORMERLY [facility] Medical History Chronic kidney disease, stage 3b Cognitive decline Depression Diabetes Gastric reflux High cholesterol Hydronephrosis Hypertension Injury of back Nephrolithiasis Non-smoker Pyelonephritis Shortness of breath on exertion Uncontrolled type 2 diabetes mellitus Uses wheelchair Home Medications amlodipine 10 mg PO DAILY 06/05/18 [History Last Taken 08/04/19] atorvastatin 40 mg PO DAILY 06/05/18 [History Last Taken 08/04/19] insulin aspart U-100 10 units SUBCUT TIDAC 08/04/19 [History Last Taken 08/04/19] lansoprazole 30 mg PO DAILY 11/03/20 [History Last Taken Unknown] insulin degludec 15 unit SQ DAILY #0 ml 11/07/20 [Rx Last Taken 08/04/19] pregabalin 50 mg PO TID #0 cap 11/07/20 [Rx Last Taken 08/04/19] ondansetron 4 mg PO TID PRN 3 Days #10 tab 12/02/20 [Rx Last Taken Unknown] docusate sodium [DOK] 100 mg PO DAILY 12/17/20 [History Last Taken Unknown] hydralazine 100 mg PO TID 12/17/20 [History Last Taken Unknown] ciprofloxacin HCl [Cipro] 250 mg PO QODAY #3 tab 01/16/21 [Rx Last Taken Unknown] tamsulosin 0.4 mg PO DAILY@1730 #14 cap 01/16/21 [Rx Last Taken Unknown] Allergy/AdvReac Type Severity Reaction Status Date / Time blue dye Allergy PASS OUT Verified 01/18/21 12:11 Family History (Updated 01/18/21 @ 17:[address] Candi Cook MD) Father Diabetes Mother Hypertension Surgical History H/O: hysterectomy History of cholecystectomy History of cystoscopy Social History (Updated 01/18/21 @ 17:[address] Candi Cook MD) household members: none Smoking Status: Former smoker alcohol intake: never substance use type: does not use ROS ROS Narrative Admission Review of Systems: CONSTITUTIONAL: No weight loss, fever, + chills, weakness or fatigue. HEENT: Eyes: No visual loss, blurred vision, double vision or yellow sclerae. Ears, Nose, Throat: No hearing loss, sneezing, congestion, runny nose or sore throat. SKIN: No rash or itching, lesions, wounds. CARDIOVASCULAR: No chest pain, chest pressure or chest discomfort, palpitations, edema, orthopnea, syncopal events. RESPIRATORY: + shortness of breath, cough without sputum, No wheezing, hemoptysis. GASTROINTESTINAL: + anorexia, nausea, vomiting, abdominal discomfort, No diarrhea, melena, BRBPR. GENITOURINARY: No dysuria, frequency, urgency or retention. NEUROLOGICAL: + headache, No dizziness, syncope, paralysis, ataxia, numbness or tingling in the extremities, focal weakness, change in bowel or bladder control, seizure. MUSCULOSKELETAL: + muscle, back pain, joint pain or stiffness. HEMATOLOGIC: + anemia, bleeding or bruising. LYMPHATICS: No enlarged nodes. No history of splenectomy. PSYCHIATRIC: No history of depression or anxiety. ENDOCRINOLOGIC: No reports of sweating, cold or heat intolerance. No polyuria or polydipsia. ALLERGIES: No history of asthma, hives, eczema or rhinitis. Vital Signs Vital Signs Vital Signs: 01/18/21 12:11 01/18/21 12:53 01/18/21 13:42 Temperature 97.3 F L 98 F Temperature Source Temporal Temporal Pulse Rate 100 94 Respiratory Rate 28 H 22 H 22 H Respiratory Effort Short of Breath Labored Accessory Muscle Use Respiratory Depth Normal Respiratory Pattern Normal Blood Pressure 187/78 H 155/73 H Blood Pressure Mean 114 100 Pulse Ox 94 96 95 Oxygen Delivery Method Room Air Nasal Cannula Nasal Cannula Oxygen Flow Rate (L/min) 2 2 01/18/21 13:44 01/18/21 14:28 01/18/21 15:35 Temperature Temperature Source Pulse Rate 95 Respiratory Rate 24 H 27 H Respiratory Effort Respiratory Depth Respiratory Pattern Tachypnea Tachypnea Blood Pressure Blood Pressure Mean Pulse Ox 87 Oxygen Delivery Method Room Air Oxygen Flow Rate (L/min) 01/18/21 15:55 01/18/21 16:51 Temperature 98.8 F Temperature Source Temporal Pulse Rate 96 Respiratory Rate 26 H 24 H Respiratory Effort Respiratory Depth Respiratory Pattern Blood Pressure 135/67 H Blood Pressure Mean 89 Pulse Ox 92 92 Oxygen Delivery Method Nasal Cannula Nasal Cannula Oxygen Flow Rate (L/min) 3 3 Weight Weight: 152 lb 5.431 oz Body Mass Index (BMI) 28.8 Physical Exam Narrative Physical Examination: General: Awake, alert, oriented x 3 including to self, place, president, remains cooperative, seated upright in the ED bed, fatigued and ill appearing. Skin: Normal color, normal turgor, no icterus, no cyanosis. HEENT: AT/NC, EOMI, PERRLA, dry MM, no carotid bruits or JVD noted. Lungs: Diminished, > bases, mildly increased RR, no rales, ronchi or wheezing. Heart: Mildly tachycardic with regular rhythm; no gallop, rub audible. Abdomen: Soft, mild generalized discomfort with palpation, mildly distended, hyperactive BS, no HSM. Extremities: No cyanosis, clubbing, or edema. Neurological: Patient awake, alert, oriented as noted, cognitive function appears intact; pupils equally reactive to light and accommodation, cranial nerves II-XII grossly normal, moving all 4 extremities, no focal deficits, strength severely globally decreased secondary to acute presentation. Psychiatric: Affect appears fatigued, ill appearing, no acute evidence of depressive or anxiety feelings. Results Lab / Micro Data Result Diagrams: 01/18/21 12:47 01/18/21 12:47 Labs: Laboratory Results - last 24 hr 01/18/21 12:47: WBC 11.0, RBC 3.68 L, Hgb 10.1 L, Hct 32.1 L, MCV 87.2, MCH 27.4, MCHC 31.5 L, RDW Std Deviation 51.9 H, RDW Coeff of Wade 16.1 H, Plt Count 251, MPV 10.8, Immature Gran % (Auto) 3.300 H, Neut % (Auto) 77.4 H, Lymph % (Auto) 11.4 L, [place] % (Auto) 7.2, Eos % (Auto) 0.4, Baso % (Auto) 0.3, Absolute Neuts (auto) 8.6 H, Absolute Lymphs (auto) 1.26, Nucleated RBC % 0.2 01/18/21 12:47: Sodium 147 H, Potassium 3.5, Chloride 116 H, Carbon Dioxide 20.0 L, Anion Gap 11, BUN 65 H, Creatinine 3.24 H, Estim Creat Clear Calc 11.67, Est GFR (MDRD) Af Amer 18 L, Est GFR (MDRD) Non-Af 15 L, BUN/Creatinine Ratio 20.1 H, Glucose 111 H, Calcium 8.3 L, Total Bilirubin 0.40, AST 14 L, ALT 18, Alkaline Phosphatase 143 H, Troponin I High Sens 80 H, Total Protein 7.2, Albumin 2.6 L, Globulin 4.6 H, Albumin/Globulin Ratio 0.6 L 01/18/21 12:47: Lactic Acid 0.7 01/18/21 13:00: PT Cancelled, INR Cancelled, APTT Cancelled 01/18/21 13:30: PT 15.2 H, INR 1.3, APTT 32.4 Radiology Impression Chest X-Ray 01/18/21 13:15 IMPRESSION: Lingular pneumonia. Electronically Signed: Reji Nowak MD at 14:17 EDT Tel , Service support , Assessment & Plan Assessment/Plan (1) Pneumonia: QUALIFIERS: Laterality: unspecified laterality Lung location: unspecified part of lung Pneumonia type: due to unspecified organism Qualified Code(s): J18.9 - Pneumonia, unspecified organism (2) Hypoxia: (3) Suspected COVID-19 virus infection: PLAN: The patient is a 75 y/o F w/ PMHx: Former Tobacco use, Chronic anemia, Anxiety and Depression, Mild cognitive decline, HTN, HLD, Hypothyroidism, Diabetes mellitus type II with neuropathy, CKD stage IIIb, recently admitted 01/14/21-01/16/21 who now re-presents to the [facility] ED on 01/18/21 with history of new onset over the last couple days fatigue, malaise, cough which is nonproductive with dyspnea, worse with any exertional attempts with nausea and emesis, poor oral intake and no appetite prompting evaluation. 1. Acute Hypoxia with Lingular PNA secondary to Suspected Acute Viral Syndrome, COVID-19: Will admit to [place] telemetry, awaiting COVID PCR thus will continue precautions pending results, high suspicion given symptoms, will maintain on oxygen with wean as tolerated to room air, PRN albuterol, HOB, IS parameters w/ pending sputum cultures, respiratory viral panel and urine antigens, will obtain D-dimer, procalcitonin, CRP, CPK, Ferritin, LDH, trop and BNP, continue supportive care including q 2 hour turning including prone given no prone bed availability and judicious hydration, closely monitor for worsening status for ARDS and multiorgan failure, if COVID PCR positive will initiate and continue IV decadron x 10 doses, given renal function, patient is not candidate for IV remdesivir. If Covid PCR is negative will temporarily placed on Zosyn and vancomycin with MRSA screen given recent hospitalization. 2. Elevated cardiac troponin, suspected likely secondary to demand given hypoxia: EKG with sinus rhythm with no acute evidence of ischemia, troponin 80, will maintain on telemetry on MedSurg as noted above, cycle cardiac enzymes, maintain on aspirin therapy, magnesium level requested, repeat EKG in AM, if rises further and concern may transition to heparin drip and request ECHO if negative COVID otherwise may need to defer. 3. Recent left-sided hydronephrosis with left ureteral stent placement complicated by EMANUEL on chronic kidney disease stage IIIb: Patient discharged on 01/16/2021 with 3 additional doses of renally dosed ciprofloxacin, will continue to completion, will also continue patient recently initiated Flomax, continue plan for outpatient follow-up with urology per prior admission. UA, UCX pending upon requested evaluation of patient. 4. Recent EMANUEL on CKD stage IIIb: Recent admission 01/13/2021 with creatinine at that time 3.32 with rise up to 3.73 on day of discharge with nephrology and urology consultation with eventual placement as noted of left ureteral stent, admission BUN/creatinine 65/3.24, decreasing, will continue to hold any nephrotoxic regimen and trend CMP. 5. Recent left lower extremity superficial DVT of the left soleus: Pending repeat unilateral left lower extremity duplex ultrasound per ED physician, will await results, patient is poor candidate for chronic anticoagulant but if clot is present and positive Covid status then will be high risk and likely would not be able to have IVC filter placement for some time therefore would opt to initiate anticoagulant therapy. 6. Chronic anemia, normocytic: Admission hemoglobin 10.1, prior baseline appears primarily 8-10, stable, trend 7. Diabetes mellitus type II with neuropathy: Will continue home insulin regimen, ADA diet, accu checks w/ ISS, continue patient home pregabalin regimen. 8. Hypertension: Continue home regimen including amlodipine, hydralazine with hold parameters as needed, PRN hydralazine. 9. Hyperlipidemia: Continue home statin regimen. 10. Anxiety and Depression: Not on regimen, encourage continued outpatient follow-up. 11. GERD: We will continue patient home PPI. 12. Former Tobacco use: Encourage continued tobacco cessation. 13. DVT prophylaxis: SCDs, heparin. 14. CODE status: Patient LATA is her daughter she notes and living will is not currently in place. Discussed CODE status at length including difference between FULL code, DNR-CCA and DNR-CC status. Following discussions about the differences in these status, requested DNR-CCA, no intubation status. Advanced Care Planning Face to Face Time: 16 minutes. Charges/Coding Visit Charges Inpatient E&M: 95250 Init Hosp L3 Procedures Hospitalists Procedures: 34065 Advncd Care Plan 30 Min
[2021-01-18 17:25] LABS: Procalcitonin 2.53 ng/mL (0.00-0.09)
[2021-01-18 17:28] LABS: Probe Check PASS; Specimen Processing Control PASS
[2021-01-18 18:04] LABS: BNP,B-Type NATRIURETIC PEPTIDE 930.4 pg/mL (0-100)
[2021-01-18 18:10] LABS: Ferritin 527 ng/mL (8-252); LDH 232 U/L (84-246)
[2021-01-18 18:25] LABS: D-Dimer Quantitative (DVT/PE) 8.94 FEU/ug/m (0.27-0.49)
[2021-01-18 18:42] LABS: Mucous, Urine 0 SEEN /hpf (<or=2+)
[2021-01-18] MEDS: 0.9% Normal Saline 1,000 ML 100 ML IV (18:45)
[2021-01-18 18:50] LABS: Color, Urine Yellow (Yellow); Glucose, Dipstick Normal (Normal); Ketone-Dipstick Negative (Negative); Leukocyte Esterase-Dipstick 500 /ul (Negative); Nitrite-Dipstick Negative (Negative); Occult Blood-Urine 250 /ul (Negative); Protein-Dipstick 100 mg/dl (Negative); Specific Gravity, Urine 1.015 (1.002-1.030); Urine Bilirubin Dipstick Negative (Negative); Urine Clarity Clear (Clear); Urine Urobilinogen Normal (Normal)
[2021-01-18 19:02] LABS: Bacteria 2+ /hpf (None Seen); Red Blood Cells-Urine > 100 SEEN /hpf (0-5); Squamous Epithelial Cells - UA 0-5 SEEN /hpf (5-10); White Blood Cells 50-100 SEEN /hpf (0-5)
--- NOTE | 2021-01-18 19:05 | PCM.RX.CS ---
Consult Type of Consult: New start Suspected Infection: Pneumonia Labs: Sodium 147 mmol/L (136-145) H 01/18/21 12:47 Potassium 3.5 mmol/L (3.5-5.1) 01/18/21 12:47 Chloride 116 mmol/L (98-107) H 01/18/21 12:47 Carbon Dioxide 20.0 mmol/L (21.0-32.0) L 01/18/21 12:47 Anion Gap 11 (5-15) 01/18/21 12:47 BUN 65 mg/dL (7-18) H 01/18/21 12:47 Creatinine 3.24 mg/dL (0.55-1.02) H 01/18/21 12:47 Est GFR (MDRD) Af Amer 18 mL/min (>60) L 01/18/21 12:47 Est GFR (MDRD) Non-Af 15 mL/min (>60) L 01/18/21 12:47 BUN/Creatinine Ratio 20.1 RATIO (10-20) H 01/18/21 12:47 Glucose 111 mg/dL (74-106) H 01/18/21 12:47 Estimated Creatinine Clearance: 12mls/min Goal Trough: 15-20 mcg/mL Pharmacy Plan for Drug Dosing: NEW START IV VANCOMYCIN Consulting Physician: Joyce Indication: Pneumonia Goal Trough: 15-20 SrCr: 3.24 CrCl: 12 mls/min Comments: ordered goal trough is 15-20 Vancomcyin Dose: based on pts weight and renal function, recommend a x1 dose 1750mg and will draw an random level 01/20/21 at 0600. do not expect pt to clear dose before 01/21/12 Pending Level: 01/20/21 at 0600 Pharmacy Service will continue to monitor and adjust dosing as required. Follow-Up Labs: Trough Vancomycin - 01/20/21 at 0600 (random level)
[2021-01-18] MEDS: Tamsulosin HCl 0.4 MG Capsule PO (19:36)
[2021-01-18] MEDS: Aspirin 81 MG TAB.CHEW PO (19:36)
[2021-01-18] MEDS: Heparin Injection (Vial) 5,000 UNIT/ML VIAL 4500 UNIT IV (19:37)
[2021-01-18 19:51] LABS: Troponin-I HS 67 pg/mL (3.0-54.0)
[2021-01-18 20:51] LABS: M R Staph aureus DNA By PCR Negative (Negative); Probe Check PASS; Specimen Processing Control PASS
[2021-01-18] MEDS: HEPARIN/D5w 25,000 UNITS 25,000 UNITS/250 ML IV.SOLN. 10 UNITS IV (20:58)
[2021-01-18] MEDS: hydrALAZINE 50 MG Tablet 100 MG PO (21:07)
[2021-01-18] MEDS: Pregabalin 50 MG Capsule PO (21:11)
[2021-01-18 21:25] LABS: Bedside Glucose 141 mg/dL (70-110)
[2021-01-18 21:33] LABS: Troponin-I HS 69 pg/mL (3.0-54.0)
[2021-01-19] VITALS (18 sets, daily range): BP systolic 148–170; BP diastolic 56–73; PULSE 84–103; RESP 16–30; TEMP 36.8–37.2; O2SAT 91–97
[2021-01-19 01:02] LABS: Troponin-I HS 71 pg/mL (3.0-54.0)
[2021-01-19] MEDS: proCHLORPERazine 10 MG/2 ML Vial 5 MG IV (02:14)
[2021-01-19] MEDS: BENZOCAINE/MENTHOL 1 LOZENGE MUCOUS MEM (02:15)
[2021-01-19 03:05] LABS: Absolute Lymphocyte Count 1.68 X10^3/uL (0.83-4.51); Absolute Neutrophil Count 6.1 X10^3/uL (2.0-7.7); Basophil# 0.02 X10^3/uL; Basophil% 0.2 % (0-1); Eosinophil# 0.07 X10^3/uL; Eosinophils% 0.8 % (0-5); Hematocrit 30.8 % (37-47); Hemoglobin 9.6 g/dL (12.0-15.0); Lymphocyte # 1.68 X10^3/ul (0.83-4.51); Lymphocyte % 18.3 % (19-41); Mean Corp Hgb Conc 31.2 g/dL (32-36); Mean Corpuscular Hgb 27.4 pg (27.0-32.0); Mean Corpuscular Volume 87.7 fL (81-99); Mean Platelet Vol. 10.6 fl (6.2-12.0); Monocyte# 0.98 X10^3/uL; Monocyte% 10.7 % (0-10); NRBC Flagged by Analyzer 0 % (0-5); Neutrophil # 6.12 X10^3/uL (2.7-7.7); Neutrophil % 66.8 % (47-70); Platelet Count 242 K/mm3 (150-450); RBC Distribution Width CV 16.2 % (11.6-14.6); RBC Distribution Width SD 51.9 fl (35.1-43.9); Red Blood Count 3.51 M/mm3 (4.2-5.4); White Blood Count 9.2 K/mm3 (4.4-11.0)
[2021-01-19 03:16] LABS: Partial Thromboplast Time 73.5 Seconds (24.1-36.2)
[2021-01-19 04:22] LABS: ALB/GLOB Ratio 0.6 RATIO (0.9-2.4); AST(SGOT) 11 U/L (15-37); Alanine Aminotransfer ALT/SGPT 15 U/L (13-56); Albumin, Serum 2.4 g/dL (3.2-5.0); Alkaline Phosphatase 124 U/L (45-117); Anion Gap 10 (5-15); BUN 59 mg/dL (7-18); BUN/Creat Ratio 20.2 RATIO (10-20); Chloride 116 mmol/L (98-107); Creatinine, Serum 2.92 mg/dL (0.55-1.02); EST Glomerular Filtration Rate 17 mL/min (>60); Est Glom Filt Rate - Afr Amer 20 mL/min (>60); Estimated Creatinine Clearance 12.95 ml/min; Globulin 4.2 g/dL (2.2-4.2); Glucose 128 mg/dL (74-106); Potassium 3.5 mmol/L (3.5-5.1); Protein, Total 6.6 g/dL (6.4-8.2); Sodium Level 145 mmol/L (136-145)
--- NOTE | 2021-01-19 05:55 | EKG12_ITS ---
Test Reason : PRE-OP Blood Pressure : / mmHG Vent. Rate : 095 BPM Atrial Rate : 095 BPM P-R Int : 172 ms QRS Dur : 126 ms QT Int : 424 ms P-R-T Axes : 060 -16 084 degrees QTc Int : 532 ms Normal sinus rhythm Right bundle branch block Abnormal ECG When compared with ECG of 18-JAN-2021 12:56, MANUAL COMPARISON REQUIRED, DATA IS UNCONFIRMED Confirmed by FLEX ROWELL, FREEMAN ([id number]), health editor GULSHAN TRAYLOR ([id number]) on 01/20/2021 10:04:25 AM Referred By: IWONA Confirmed By:FREEMAN MCCORD MD
[2021-01-19] MEDS: Pregabalin 50 MG Capsule PO ×3 (05:56→21:09)
[2021-01-19] MEDS: hydrALAZINE 50 MG Tablet 100 MG PO ×3 (05:56→21:10)
[2021-01-19 08:21] LABS: Bedside Glucose 111 mg/dL (70-110)
[2021-01-19] MEDS: Albuterol 2.5 MG/3 ML VIAL.NEB. INHALATION ×3 (08:38→22:16)
[2021-01-19 09:09] LABS: Partial Thromboplast Time 81.1 Seconds (24.1-36.2)
[2021-01-19] MEDS: Insulin Lispro 100 UNIT/ML INSULN.PEN 10 UNIT SC ×3 (09:19→17:27)
--- NOTE | 2021-01-19 09:46 | VDLE_ITS ---
Reason For Study: elevated D-dimer RIGHT LEFT GSV is normal. GSV is normal. CFV is compressible, spontaneous, phasic, CFV is compressible, spontaneous, phasic, competent and demonstrates normal competent, and demonstrates normal augmentation. augmentation. FV is compressible, spontaneous, phasic, FV is compressible, spontaneous, phasic, competent and demonstrates normal competent and demonstrates normal augmentation. augmentation. POP V is compressible, spontaneous, phasic, POP V is compressible, spontaneous, phasic, competent and demonstrates normal competent and demonstrates normal augmentation. augmentation. T/P Trunk is compressible. T/P Trunk is compressible. PTV is compressible. PTV is compressible. RT PerV is compressible. LT PerV is compressible. Procedure Soleus V is dilated and noncompressible. This is a venous duplex using B-mode, color flow and spectral Doppler. Exam performed portable in patient room. The exam was diagnostic. A preliminary report was called and/or faxed to the pt's RN. VL/Venous Duplex US - Pj Extrem Interpretation Summary Acute deep venous thrombosis left soleus vein No evidence for acute deep venous thrombosis right lower extremity Patent and compressible bilateral great saphenous veins Findings correlate similarly with the previous examination of January 15, 2021 Ordering Physician: Candi Cook Performed By: London Warner RVRadha
--- NOTE | 2021-01-19 10:46 | PN.HOSP_ITS ---
Subjective Subjective Follow-up on acute respiratory failure secondary to pneumonia/debility/elevated troponin: Patient was seen and examined. She complains of feeling very tired. She is slightly dyspneic. SPO2 is 93% on room air. Patient admits to living alone with her dog. She stated that she was unable to perform her activities of daily living over the last few days. Denied any fever or chills Objective Data Objective Data Vital Signs: Vital Signs Temp Pulse Resp BP Pulse Ox 98.9 F 97 30 H 148/63 H 91 01/19/21 08:05 01/19/21 08:40 01/19/21 08:40 01/19/21 08:05 01/19/21 08:40 Oxygen Flow Rate (L/min) 3 Oxygen Delivery Method Room Air Weight: 67.4 kg Body Mass Index (BMI) 27.4 Intake & Output: Intake and Output for Last 24 Hours 01/17/21 01/18/21 01/19/21 23:59 23:59 23:59 Intake Total 686.67 / 686.67 1031.83 / 1031.83 Output Total 650 / 650 Balance 686.67 / 686.67 381.83 / 381.83 Lab / Micro Data Result Diagrams: 01/19/21 02:50 01/19/21 02:50 Labs: Laboratory Results - last 24 hr 01/18/21 12:47: WBC 11.0, RBC 3.68 L, Hgb 10.1 L, Hct 32.1 L, MCV 87.2, MCH 27.4, MCHC 31.5 L, RDW Std Deviation 51.9 H, RDW Coeff of Wade 16.1 H, Plt Count 251, MPV 10.8, Immature Gran % (Auto) 3.300 H, Neut % (Auto) 77.4 H, Lymph % (Auto) 11.4 L, [place] % (Auto) 7.2, Eos % (Auto) 0.4, Baso % (Auto) 0.3, Absolute Neuts (auto) 8.6 H, Absolute Lymphs (auto) 1.26, Nucleated RBC % 0.2 01/18/21 12:47: Sodium 147 H, Potassium 3.5, Chloride 116 H, Carbon Dioxide 20.0 L, Anion Gap 11, BUN 65 H, Creatinine 3.24 H, Estim Creat Clear Calc 11.67, Est GFR (MDRD) Af Amer 18 L, Est GFR (MDRD) Non-Af 15 L, BUN/Creatinine Ratio 20.1 H , Glucose 111 H, Calcium 8.3 L, Total Bilirubin 0.40, AST 14 L, ALT 18, Alkaline Phosphatase 143 H, Troponin I High Sens 80 H, Total Protein 7.2, Albumin 2.6 L, Globulin 4.6 H, Albumin/Globulin Ratio 0.6 L 01/18/21 12:47: Lactic Acid 0.7 01/18/21 13:00: PT Cancelled, INR Cancelled, APTT Cancelled 01/18/21 13:00: Procalcitonin 2.53 H 01/18/21 13:30: PT 15.2 H, INR 1.3, APTT 32.4 01/18/21 13:30: D-Dimer Quant (PE/DVT) 8.94 H* 01/18/21 13:30: Ferritin 527 H, Lactate Dehydrogenase 232, C-React Prot Ext Range 85.90 H 01/18/21 13:30: B-Natriuretic Peptide 930.4 H 01/18/21 16:15: COVID-19 (GORDON) Negative 01/18/21 18:30: Urine Color Yellow, Urine Clarity Clear, Urine pH 6.0, Ur Specific Delta 1.015, Urine Protein 100 H, Urine Glucose (UA) Normal, Urine Ketones Negative, Urine Occult Blood 250 H, Urine Nitrite Negative, Urine Bilirubin Negative, Urine Urobilinogen Normal, Ur Leukocyte Esterase 500 H, Urine RBC > 100 SEEN, Urine WBC 50-100 SEEN, Ur Squamous Epith Cells 0-5 SEEN, Urine Bacteria 2+, Urine Mucus 0 SEEN 01/18/21 19:00: MRSA (PCR) Negative 01/18/21 19:22: Troponin I High Sens 67 H 01/18/21 21:00: Troponin I High Sens 69 H 01/18/21 21:12: POC Glucose 141 H 01/19/21 00:20: Troponin I High Sens 71 H 01/19/21 02:50: WBC 9.2, RBC 3.51 L, Hgb 9.6 L, Hct 30.8 L, MCV 87.7, MCH 27.4, MCHC 31.2 L, RDW Std Deviation 51.9 H, RDW Coeff of Wade 16.2 H, Plt Count 242, MPV 10.6, Immature Gran % (Auto) 3.200 H, Neut % (Auto) 66.8, Lymph % (Auto) 18.3 L, [place] % (Auto) 10.7 H, Eos % (Auto) 0.8, Baso % (Auto) 0.2, Absolute Neuts (auto) 6.1, Absolute Lymphs (auto) 1.68, Nucleated RBC % 0 01/19/21 02:50: Sodium 145, Potassium 3.5, Chloride 116 H, Carbon Dioxide 19.0 L , Anion Gap 10, BUN 59 H, Creatinine 2.92 H, Estim Creat Clear Calc 12.95, Est GFR (MDRD) Af Amer 20 L, Est GFR (MDRD) Non-Af 17 L, BUN/Creatinine Ratio 20.2 H , Glucose 128 H, Calcium 8.0 L, Total Bilirubin 0.40, AST 11 L, ALT 15, Alkaline Phosphatase 124 H, Total Protein 6.6, Albumin 2.4 L, Globulin 4.2, Albumin/Globu leyda Ratio 0.6 L 01/19/21 02:50: APTT 73.5 H 01/19/21 08:17: POC Glucose 111 H 01/19/21 08:50: APTT 81.1 H Micro: Microbiology 01/18/21 18:30 Urine, Clean Catch Urine Culture - Preliminary Culture exhibits no growth. 01/18/21 18:50 Mucosa - Nasopharyngeal Respiratory Panel (PCR) - Final 01/18/21 18:30 Urine Catheter - Catheter Legionella Antigen - Final 01/18/21 18:30 Urine Catheter - Catheter Streptococcus pneumoniae Antigen (M - Final Radiography Diagnostic Testing: Radiology Impression Chest X-Ray 01/18/21 13:15 IMPRESSION: Lingular pneumonia. Electronically Signed: Reji Nowak MD at 14:17 EDT Tel , Service support , Physical Exam Narrative Physical exam: General: Alert, Oriented x3, Cooperative, appears fatigued, not on oxygen HEENT: Atraumatic Oral: Moist Mucosa Neck: Supple Lungs: Diminished to auscultation Cardiovascular: HS I+II, regular, no murmurs Abdomen: Bowel Sounds Present, Soft, Non Tender Extremities: No edema Assessment & Plan Assessment/Plan (1) Pneumonia: QUALIFIERS: Pneumonia type: due to unspecified organism Laterality: unspecified laterality Lung location: unspecified part of lung Qualified Code(s): J18.9 - Pneumonia, unspecified organism (2) Hypoxia: PLAN: 1. Acute hypoxic respiratory insufficiency secondary to acute left lingular pneumonia Currently off oxygen Patient recently admitted and discharged after work-up for acute kidney injury, hydronephrosis, metabolic acidosis. Patient rapid Covid 19 antigen as well as PCR was negative. Respiratory panel is negative She is on IV vancomycin and Zosyn, blood cultures are pending 2. Indeterminant troponin likely secondary to #1 3. Elevated BNPep, no clear history of heart failure, likely related to recent acute kidney injury versus fluid overload state Admitting [facility] reports 930.4 We will give Lasix 40 mg IV x1 Reassess later; if shortness of breath persist, would check a 2D echo 4. Elevated D-dimer, acute DVT of the right leg suspected Currently on heparin drip, Doppler ultrasound of the legs are pending 5. Rest of her recent medical conditions in her last admission remained stable; recent left-sided hydronephrosis with left ureteral stent, recent EMANUEL on CKD stage IIIb, recent left lower extremity DVT of the left soleus Doppler ultrasound pending Renal function appears to be improving 6. 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 Debility secondary to all of the above, PT and OT to evaluate and treat Patient will likely need residential facility at discharge Charges/Coding Visit Charges Inpatient E&M: 37991 Subs Hosp L2
[2021-01-19 11:11] LABS: Bedside Glucose 175 mg/dL (70-110)
[2021-01-19] MEDS: Furosemide 40 MG/4 ML Vial IV (11:15)
[2021-01-19] MEDS: 0.9% Saline Lock 10 ML Syringe IV (11:15)
[2021-01-19] MEDS: amLODIPine 10 MG Tablet PO (11:17)
[2021-01-19] MEDS: Aspirin 81 MG TAB.CHEW PO (11:17)
[2021-01-19] MEDS: Pantoprazole Sodium 40 MG Tablet PO (11:17)
[2021-01-19] MEDS: Atorvastatin Calcium 40 MG Tablet PO (11:17)
[2021-01-19] MEDS: Docusate Sodium 100 MG Capsule PO (11:18)
[2021-01-19] MEDS: Insulin Lispro 100 UNIT/ML INSULN.PEN SC (11:24)
--- NOTE | 2021-01-19 11:35 | CASEMGMT ---
JOVANA SALGUERO Readmission Note Previous Admission: 01/13/21-01/16/21 Diagnosis: hydronephrosis, UTI DC Disposition: Home with HHC and aide services through passport Current Admission Diagnosis: PNA, suspected COVID, hypoxia Pt presented to ER from home with shortness of breath. Pt dc'd two days ago, therapy had recommended SNF placement but pt declined. JOVANA SALGUERO in to pt room, pt reports that her HHC has not started yet. She also reports she has not made any follow up appts. Pt friend Ed who she states is an alcoholic has been helping her at home. She states she has been taking her medications as ordered. Pt feels lousy and weak. Discussed with patient that a SNF was recommended at last hospital stay and given that she is very weak it may be recommended again. Pt states she is not going to a SNF. She states they do not want to let her go home when she goes. Provided pt with a list of SNF providers including quality and resource use data and consistent with the patient?s preferred geographic region, medical needs, and insurance network should pt change her mind on SNF. Pt states she will work with therapy and see how she does. She states her apt is paid for this month and she does not want to go anywhere else but home. She is aware that JOVANA SALGUERO will check in with her again to confirm her choice. DC Plan: Home with HHC services vs SNF. TC to [place], spoke with Yanet who is aware that pt is readmitted to the hospital.
--- NOTE | 2021-01-19 12:08 | CASEMGMT ---
Social Work Note SARAH reviewed chart. Pt with [facility] CM Isela Desai. SARAH placed a call to Isela Ivett Desai and updated her on pt's admission to [facility]. SARAH updated Isela that at this time, pt is wanting to discharge home. Isela asked for discharge paperwork to be faxed to her from pt's recent visit (pt just discharged home 01/16/2021). SARAH faxed discharge paperwork to Isela Desai at [facility]. Barbara Friedman PIGGERY WORKER, LIFE INSURANCE SPECIALIST
--- NOTE | 2021-01-19 12:10 | CASEMGMT ---
Pt screened with [facility] Palliative Care screening tool due to readmission, pt did not meet criteria.
--- NOTE | 2021-01-19 15:20 | CHAPLAIN ---
Type of Pastoral Visit _x__ Initial Visit ___ Follow-up Visit ___ On-call Visit ___ General Patient Visit ___ Spiritual Assessment ___ Family Conference ___ Bereavement ___ Rapid Response ___ Code Blue ___ Other (describe below) Pastoral Care Referral From _x__ Patient ___ Family ___ Nurse ___ Physician ___ Singing Teacher ___ [place] ___ Other (describe below) Sacrament/Intervention _x__ Active listening ___ Anointing ___ Mandaeism ___ Bereavement ___ Communion ___ Capri exploration ___ _x__ Life review _x__ Prayer ___ Reconciliation ___ Sacrament of Sick _x__ Supportive presence ___ Wedding ___ Other (describe below) Pastoral Comments patient is wanting to talk and to have prayer for her needs and for her family; pt also requested a Bible which was brought back to her room
[2021-01-19 17:05] LABS: Bedside Glucose 124 mg/dL (70-110)
[2021-01-19 17:05] LABS: Partial Thromboplast Time 67.6 Seconds (24.1-36.2)
--- NOTE | 2021-01-19 17:13 | NURSING ---
PTT at 1635 was within goal range (67.6). Heparin drip continues at 9ml/hr.
[2021-01-19] MEDS: Tamsulosin HCl 0.4 MG Capsule PO (17:26)
[2021-01-19] MEDS: Acetaminophen 325 MG Tablet 650 MG PO ×2 (17:37→21:44)
[2021-01-19] MEDS: hydrALAZINE 20 MG/ML Vial 10 MG IV (21:09)
[2021-01-19] MEDS: MELATONIN 3 MG TABLET PO (21:09)
[2021-01-19] MEDS: Ondansetron 4 MG/2 ML Vial IV (21:44)
[2021-01-19] MEDS: HEPARIN/D5w 25,000 UNITS 25,000 UNITS/250 ML IV.SOLN. 9 UNITS IV (22:41)
[2021-01-19 23:09] LABS: Partial Thromboplast Time 64.9 Seconds (24.1-36.2)
[2021-01-20] VITALS (19 sets, daily range): BP systolic 144–168; BP diastolic 58–84; PULSE 89–105; RESP 16–28; TEMP 36.9–37.2; O2SAT 92–95
[2021-01-20] MEDS: Acetaminophen 325 MG Tablet 650 MG PO ×5 (01:59→23:22)
[2021-01-20 03:16] LABS: Bedside Glucose 104 mg/dL (70-110)
[2021-01-20] MEDS: hydrALAZINE 50 MG Tablet 100 MG PO ×3 (05:34→22:11)
[2021-01-20] MEDS: Pregabalin 50 MG Capsule PO ×3 (05:39→22:13)
[2021-01-20 06:08] LABS: Absolute Lymphocyte Count 1.48 X10^3/uL (0.83-4.51); Absolute Neutrophil Count 7.6 X10^3/uL (2.0-7.7); Basophil# 0.02 X10^3/uL; Basophil% 0.2 % (0-1); Eosinophil# 0.07 X10^3/uL; Eosinophils% 0.6 % (0-5); Hematocrit 30.1 % (37-47); Lymphocyte # 1.48 X10^3/ul (0.83-4.51); Lymphocyte % 13.4 % (19-41); Mean Corp Hgb Conc 29.9 g/dL (32-36); Mean Corpuscular Hgb 27.6 pg (27.0-32.0); Mean Corpuscular Volume 92.3 fL (81-99); Mean Platelet Vol. 10.5 fl (6.2-12.0); Monocyte# 1.46 X10^3/uL; Monocyte% 13.2 % (0-10); NRBC Flagged by Analyzer 0 % (0-5); Neutrophil # 7.61 X10^3/uL (2.7-7.7); Neutrophil % 69.1 % (47-70); Platelet Count 240 K/mm3 (150-450); RBC Distribution Width CV 16.2 % (11.6-14.6); Red Blood Count 3.26 M/mm3 (4.2-5.4)
[2021-01-20 06:24] LABS: Partial Thromboplast Time 75.6 Seconds (24.1-36.2)
[2021-01-20 06:47] LABS: ALB/GLOB Ratio 0.5 RATIO (0.9-2.4); AST(SGOT) 6 U/L (15-37); Alanine Aminotransfer ALT/SGPT 12 U/L (13-56); Albumin, Serum 2.2 g/dL (3.2-5.0); Alkaline Phosphatase 99 U/L (45-117); Anion Gap 13 (5-15); BUN 57 mg/dL (7-18); BUN/Creat Ratio 18.6 RATIO (10-20); Calcium,Total 7.7 mg/dL (8.5-10.1); Chloride 113 mmol/L (98-107); Creatinine, Serum 3.06 mg/dL (0.55-1.02); EST Glomerular Filtration Rate 16 mL/min (>60); Est Glom Filt Rate - Afr Amer 19 mL/min (>60); Estimated Creatinine Clearance 12.36 ml/min; Globulin 4.1 g/dL (2.2-4.2); Glucose 184 mg/dL (74-106); Potassium 3.4 mmol/L (3.5-5.1); Protein, Total 6.3 g/dL (6.4-8.2); Sodium Level 144 mmol/L (136-145)
[2021-01-20 07:01] LABS: Vancomycin, Random Level 21.2 ug/mL (0.0-15.0)
--- NOTE | 2021-01-20 07:37 | PCM.RX.CS ---
Consult Pharmacy has been consulted to manage selected antiobiotic: Vancomycin Type of Consult: Follow-up Suspected Infection: Pneumonia Labs: Sodium 144 mmol/L (136-145) 01/20/21 05:56 Potassium 3.4 mmol/L (3.5-5.1) L 01/20/21 05:56 Chloride 113 mmol/L (98-107) H 01/20/21 05:56 Carbon Dioxide 18.0 mmol/L (21.0-32.0) L 01/20/21 05:56 Anion Gap 13 (5-15) 01/20/21 05:56 BUN 57 mg/dL (7-18) H 01/20/21 05:56 Creatinine 3.06 mg/dL (0.55-1.02) H 01/20/21 05:56 Est GFR (MDRD) Af Amer 19 mL/min (>60) L 01/20/21 05:56 Est GFR (MDRD) Non-Af 16 mL/min (>60) L 01/20/21 05:56 BUN/Creatinine Ratio 18.6 RATIO (10-20) 01/20/21 05:56 Glucose 184 mg/dL (74-106) H 01/20/21 05:56 Random Vancomycin 21.2 ug/mL (0.0-15.0) H 01/20/21 05:56 Microbiology: Microbiology 01/18/21 18:30 Urine, Clean Catch Urine Culture - Preliminary Culture exhibits no growth. 01/18/21 18:50 Mucosa - Nasopharyngeal Respiratory Panel (PCR) - Final 01/18/21 18:30 Urine Catheter - Catheter Legionella Antigen - Final 01/18/21 18:30 Urine Catheter - Catheter Streptococcus pneumoniae Antigen (M - Final Estimated Creatinine Clearance: 12 mls/min Goal Trough: 15-20 mcg/mL Pharmacy Plan for Drug Dosing: pts random level resulted at >20. no further doses indicated for 01/20/21. will check a random level on 01/21/21 at 0600 Pharmacy Service will continue to monitor and adjust dosing as required. Follow-Up Labs: Trough Vancomycin - 01/21/21 at 0600 (random level)
[2021-01-20] MEDS: Docusate Sodium 100 MG Capsule PO (09:05)
[2021-01-20] MEDS: amLODIPine 10 MG Tablet PO (09:05)
[2021-01-20] MEDS: Aspirin 81 MG TAB.CHEW PO (09:05)
[2021-01-20] MEDS: Pantoprazole Sodium 40 MG Tablet PO (09:05)
[2021-01-20] MEDS: Atorvastatin Calcium 40 MG Tablet PO (09:29)
[2021-01-20] MEDS: Insulin Lispro 100 UNIT/ML INSULN.PEN SC ×3 (09:33→22:23)
[2021-01-20 09:46] LABS: Bedside Glucose 169 mg/dL (70-110)
[2021-01-20] MEDS: Insulin Lispro 100 UNIT/ML INSULN.PEN 10 UNIT SC (11:33)
[2021-01-20 11:36] LABS: Bedside Glucose 187 mg/dL (70-110)
--- NOTE | 2021-01-20 12:17 | PCM.TXEXTCAR ---
Diet 01/18/21 18:15 Diet: Clear Liquid Food consistency:: N/A - Liquid only Liquid Consistency:: Regular/Thin Advance to: ADA 1800 Problem/Diagnosis (1) Pneumonia: Status: Acute (2) Hypoxia: Status: Acute Allergies/Procedures Done in Hospital Allergies blue dye Allergy (Verified 01/18/21 12:11) PASS OUT Dietary and Speech Recommendations Dietitian Recommendations/Changes: When ready for solids, recommend advanced diet as tolerated to 1800 calorie/consistent carbohydrate/cardiac. ONS as needed once intake established with solid foods. Discharge Plan Admission Admit Date/Time: 01/18/21 17:10 Attending Provider: Hodan Moody Primary Care Provider: Shawn Almeida Discharge Orders/Prescriptions Prescriptions: No Action atorvastatin 40 MG tablet 40 mg PO DAILY RF: 0 amlodipine 10 MG tablet 10 mg PO DAILY RF: 0 insulin aspart U-100 100 UNITS/ML insulin pen 10 units subcut TIDAC RF: 0 lansoprazole 30 mg Capsule,Delayed Release(Dr/Ec) 30 mg PO DAILY RF: 0 pregabalin 50 MG capsule 50 mg PO TID Qty: 0 RF: 0 insulin degludec 100 UNIT/ML insulin pen 15 unit SQ DAILY Qty: 0 RF: 0 hydralazine 50 mg tablet 100 mg PO TID RF: 0 docusate sodium [DOK] 100 MG capsule 100 mg PO DAILY RF: 0 ondansetron 4 mg tablet,disintegrating 4 mg PO TID PRN (Reason: nausea and vomiting) 3 Days Qty: 10 RF: 0 tamsulosin 0.4 mg Capsule 0.4 mg PO DAILY@1730 Qty: 14 RF: 0 ciprofloxacin HCl [Cipro] 250 mg tablet 250 mg PO QODAY Qty: 3 RF: 0
--- NOTE | 2021-01-20 15:27 | PCM.PN.HOSP ---
Subjective Subjective Follow-up on acute respiratory failure secondary to pneumonia/debility/elevated troponin: Patient seen and examined. She appeared tachypneic but pulse ox was stable at 93%. She stated that her breathing is better. Objective Data Objective Data Vital Signs: Vital Signs Temp Pulse Resp BP Pulse Ox 98.9 F 102 H 28 H 168/58 H 95 01/20/21 13:25 01/20/21 13:29 01/20/21 13:25 01/20/21 13:25 01/20/21 13:25 Oxygen Flow Rate (L/min) 3 Oxygen Delivery Method Room Air Weight: 68 kg Body Mass Index (BMI) 27.4 Intake & Output: Intake and Output for Last 24 Hours 01/18/21 01/19/21 01/20/21 23:59 23:59 23:59 Intake Total 686.67 / 686.67 1993.13 / 2193.13 450 / 450 Output Total 1050 / 1250 720 / 720 Balance 686.67 / 686.67 943.13 / 943.13 -270 / -270 Lab / Micro Data Result Diagrams: 01/20/21 05:56 01/20/21 05:56 Labs: Laboratory Results - last 24 hr 01/19/21 16:35: APTT 67.6 H 01/19/21 16:46: POC Glucose 124 H 01/19/21 21:21: POC Glucose 104 01/19/21 22:35: APTT 64.9 H 01/20/21 05:56: Random Vancomycin 21.2 H 01/20/21 05:56: WBC 11.0, RBC 3.26 L, Hgb 9.0 L, Hct 30.1 L, MCV 92.3 D, MCH 27.6, MCHC 29.9 L, RDW Std Deviation 55.0 H, RDW Coeff of Wade 16.2 H, Plt Count 240, MPV 10.5, Immature Gran % (Auto) 3.500 H, Neut % (Auto) 69.1, Lymph % (Auto) 13.4 L, Haywood % (Auto) 13.2 H, Eos % (Auto) 0.6, Baso % (Auto) 0.2, Absolute Neuts (auto) 7.6, Absolute Lymphs (auto) 1.48, Nucleated RBC % 0 01/20/21 05:56: Sodium 144, Potassium 3.4 L, Chloride 113 H, Carbon Dioxide 18.0 L, Anion Gap 13, BUN 57 H, Creatinine 3.06 H, Estim Creat Clear Calc 12.36, Est GFR (MDRD) Af Amer 19 L, Est GFR (MDRD) Non-Af 16 L, BUN/Creatinine Ratio 18.6, Glucose 184 H, Calcium 7.7 L, Total Bilirubin 0.30, AST 6 L, ALT 12 L, Alkaline Phosphatase 99, Total Protein 6.3 L, Albumin 2.2 L, Globulin 4.1, Albumin/Globulin Ratio 0.5 L 01/20/21 05:56: APTT 75.6 H 01/20/21 08:45: POC Glucose 169 H 01/20/21 11:25: POC Glucose 187 H Micro: Microbiology 01/18/21 18:30 Urine, Clean Catch Urine Culture - Final Culture exhibits no growth. 01/18/21 18:50 Mucosa - Nasopharyngeal Respiratory Panel (PCR) - Final 01/18/21 18:30 Urine Catheter - Catheter Legionella Antigen - Final 01/18/21 18:30 Urine Catheter - Catheter Streptococcus pneumoniae Antigen (M - Final Radiography Diagnostic Testing: Radiology Impression Venous Doppler Study 01/19/21 09:46 Interpretation Summary Acute deep venous thrombosis left soleus vein No evidence for acute deep venous thrombosis right lower extremity Patent and compressible bilateral great saphenous veins Findings correlate similarly with the previous examination of January 15, 2021 Ordering Physician: Candi Cook Performed By: London Warner, RVT Physical Exam Narrative Physical exam: General: Alert, Oriented x3, Cooperative, appears fatigued, not on oxygen HEENT: Atraumatic Oral: Moist Mucosa Neck: Supple Lungs: Diminished to auscultation Cardiovascular: HS I+II, regular, no murmurs Abdomen: Bowel Sounds Present, Soft, Non Tender Extremities: No edema Assessment & Plan Assessment/Plan (1) Pneumonia: QUALIFIERS: Pneumonia type: due to unspecified organism Laterality: unspecified laterality Lung location: unspecified part of lung Qualified Code(s): J18.9 - Pneumonia, unspecified organism (2) Hypoxia: PLAN: 1. Acute hypoxic respiratory insufficiency secondary to acute left lingular pneumonia, probable acute PE, present on admission Not on oxygen Patient recently admitted and discharged after work-up for acute kidney injury, hydronephrosis, metabolic acidosis. Patient rapid Covid 19 antigen as well as PCR was negative. Respiratory panel is negative We will continue on IV Zosyn; IV vancomycin was discontinued on account of worsening renal function Blood cultures are pending 2. Indeterminant troponin likely secondary to #1 3. Elevated BNPep, no clear history of heart failure, likely related to recent acute kidney injury versus fluid overload state Admitting [facility] reports 930.4 Will check 2D echo, repeat BNP in a.m. 4. 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 Rest of her recent medical conditions in her last admission remained stable; recent left-sided hydronephrosis with left ureteral stent, recent EMANUEL on CKD stage IIIb 6. 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 Debility secondary to all of the above, PT and OT to evaluate and treat Patient will likely need jail facility at discharge Charges/Coding Visit Charges Inpatient E&M: 07360 Subs Hosp L2
--- NOTE | 2021-01-20 15:39 | ECHOD_ITS ---
Reason For Study: Dyspnea/SOB Procedure This was a 2D Doppler, Color Flow transthoracic echocardiogram. Exam performed portable in patient room. Left Ventricle Normal LV size. Left ventricular systolic function is normal. The estimated ejection fraction is 60 %. No regional wall motion abnormalities noted. Right Ventricle Normal RV size. Normal systolic function. Atria Normal left atrium. Normal right atrium. Mitral Valve Normal mitral valve. Tricuspid Valve Normal tricuspid valve. Aortic Valve Normal aortic valve. Trisinus/trileaflet aortic valve. Pulmonic Valve Normal pulmonic valve. Great Vessels Normal aortic root. The pulmonary artery is normal size. Normal inferior vena cava. Pericardium/Pleural No pericardial effusion. MMode/2D Measurements & Calculations LVIDd: 3.2 cm IVSd: 1.6 cm Ao root diam: 2.6 cm LVIDs: 2.0 cm LVPWd: 1.6 cm RVDd: 2.8 cm FS: 37.9 % LAV(MOD-bp): 40.8 ml LVAd ap4: 19.2 cm2 SV(MOD-sp4): 27.5 ml LAV(MOD-bp) Indexed: 24.3 ml/m2 LVLd ap4: 6.7 cm LAV(MOD-sp2): 35.5 ml EDV(MOD-sp4): 45.5 ml LAV(MOD-sp4): 43.3 ml EDV(sp4-el): 46.8 ml LVAs ap4: 10.6 cm2 LVLs ap4: 5.4 cm ESV(MOD-sp4): 18.0 ml ESV(sp4-el): 17.7 ml EF(MOD-sp4): 60.4 % EF(sp4-el): 62.1 % SV(sp4-el): 29.1 ml LA A4 area: 16.5 cm2 LA dimension(2D): 4.2 cm RA A4 area: 9.5 cm2 Doppler Measurements & Calculations MV E max [place]: 140.0 cm/sec Lat Peak E' [place]: 5.5 cm/sec Med Peak E' [place]: 5.3 cm/sec MV A max [place]: 131.0 cm/sec E/E' lat: 25.5 E/E' med: 26.5 MV E/A: 1.1 Ao V2 max: 210.6 cm/sec LV V1 max: 133.2 cm/sec PA V2 max: 126.8 cm/sec Ao max P.7 mmHg LV V1 max P.1 mmHg Ao V2 mean: 145.4 cm/sec Ao mean P.4 mmHg Ao V2 VTI: 40.4 cm ECHO/Echo Complete Interpretation Summary Normal LV size. Left ventricular systolic function is normal. The estimated ejection fraction is 60 %. Structurally normal valves. Ordering Physician: Hodan Moody Referring Physician: Shawn Almeida Performed By: Neeta Toscano RDCS, RVT
[2021-01-20] MEDS: 0.9% Saline Lock 10 ML Syringe IV (15:57)
[2021-01-20 16:01] LABS: Bedside Glucose 79 mg/dL (70-110)
--- NOTE | 2021-01-20 16:19 | CASEMGMT ---
JOVANA CM in to pt room. Pt has declined PT this date d/t knee pain. Pt states that she is now aware that she cannot go home and is agreeable to SNF. Patient was provided a list of SNF providers including quality and resource use data and consistent with the patient?s preferred geographic region, medical needs, and insurance network. Pt does not have her glasses, she asked this RN CM to read her the options. Read all options, start ratings, location and she then stated she would be fine with any in [place]. Notified Daryl COLLINS
[2021-01-20] MEDS: Tamsulosin HCl 0.4 MG Capsule PO (16:20)
[2021-01-20 16:25] LABS: Bedside Glucose 128 mg/dL (70-110)
--- NOTE | 2021-01-20 17:05 | CASEMGMT ---
Social Work Note SW updated that pt is agreeable to SNF, states any SNF in [place], [place]. SARAH reviewed SNF list. SARAH went down the list alphabetically. SARAH placed a call to Dahiana at [facility]/ [facility] and left message regarding referral. SARAH received message from Dahiana stating to fax the referral over and Howard will review as [facility] has no beds available at this time. SARAH faxed referral to Dahiana at [facility]. Plan: SNF pending acceptance and LOC Barbara Friedman MANAGER CRITICAL CARE UNIT, SANDER SETTER
[2021-01-20] MEDS: APIXABAN 5 MG TABLET 10 MG PO (22:13)
[2021-01-20] MEDS: Carvedilol 3.125 MG TABLET PO (22:14)
[2021-01-20 22:31] LABS: Bedside Glucose 254 mg/dL (70-110)
[2021-01-21] VITALS (9 sets, daily range): BP systolic 135–152; BP diastolic 63–73; PULSE 80–90; RESP 16–20; TEMP 36.6–37.1; O2SAT 94–97
[2021-01-21] MEDS: Acetaminophen 325 MG Tablet 650 MG PO ×2 (04:31→11:20)
[2021-01-21] MEDS: Pregabalin 50 MG Capsule PO ×2 (04:31→13:23)
[2021-01-21] MEDS: hydrALAZINE 50 MG Tablet 100 MG PO ×2 (04:34→13:22)
[2021-01-21 06:04] LABS: Absolute Lymphocyte Count 1.44 X10^3/uL (0.83-4.51); Basophil# 0.02 X10^3/uL; Basophil% 0.2 % (0-1); Eosinophil# 0.33 X10^3/uL; Eosinophils% 2.5 % (0-5); Hematocrit 31.7 % (37-47); Hemoglobin 9.5 g/dL (12.0-15.0); Lymphocyte # 1.44 X10^3/ul (0.83-4.51); Lymphocyte % 10.8 % (19-41); Mean Corpuscular Volume 90.1 fL (81-99); Mean Platelet Vol. 10.4 fl (6.2-12.0); Monocyte# 1.11 X10^3/uL; Monocyte% 8.3 % (0-10); NRBC Flagged by Analyzer 0 % (0-5); Neutrophil # 9.95 X10^3/uL (2.7-7.7); Neutrophil % 74.8 % (47-70); Platelet Count 272 K/mm3 (150-450); RBC Distribution Width CV 16.3 % (11.6-14.6); RBC Distribution Width SD 53.2 fl (35.1-43.9); Red Blood Count 3.52 M/mm3 (4.2-5.4); White Blood Count 13.3 K/mm3 (4.4-11.0)
[2021-01-21 06:18] LABS: Partial Thromboplast Time 45.4 Seconds (24.1-36.2)
[2021-01-21 06:32] LABS: Vancomycin, Random Level 16.9 ug/mL (0.0-15.0)
[2021-01-21 06:37] LABS: ALB/GLOB Ratio 0.5 RATIO (0.9-2.4); AST(SGOT) 10 U/L (15-37); Alanine Aminotransfer ALT/SGPT 9 U/L (13-56); Alkaline Phosphatase 102 U/L (45-117); Anion Gap 10 (5-15); BUN 50 mg/dL (7-18); BUN/Creat Ratio 17.5 RATIO (10-20); Calcium,Total 7.8 mg/dL (8.5-10.1); Chloride 114 mmol/L (98-107); Creatinine, Serum 2.86 mg/dL (0.55-1.02); EST Glomerular Filtration Rate 17 mL/min (>60); Est Glom Filt Rate - Afr Amer 21 mL/min (>60); Estimated Creatinine Clearance 13.22 ml/min; Globulin 4.4 g/dL (2.2-4.2); Glucose 81 mg/dL (74-106); Potassium 3.4 mmol/L (3.5-5.1); Protein, Total 6.4 g/dL (6.4-8.2); Sodium Level 143 mmol/L (136-145)
[2021-01-21 06:56] LABS: Bedside Glucose 83 mg/dL (70-110)
[2021-01-21 08:16] LABS: BNP,B-Type NATRIURETIC PEPTIDE 435.9 pg/mL (0-100)
--- NOTE | 2021-01-21 10:06 | CASEMGMT ---
Addendum entered by Barbara Friedman 01/21/21 12:54: SW faxed Level of Care to [facility]. Original Note: Social Work Note SW received call from Dahiana at [facility] stating they are able to accept pt. SW in to speak with pt. SW introduced self and role at [facility]. SW informed pt that [facility], SNF in [place], is able to accept pt. Pt states they are going to take all of my money. SW informed pt that she will be going to SNF under Medicaid, should cover costs of SNF. SW informed pt that this worker will work on getting approval from Medicaid for [facility]. Pt states understanding, agreeable to [facility]. SW to submit LOC. Plan: [facility] pending LOC Barbara Friedman BRAZER FURNACE, PIPE BUFFER
[2021-01-21] MEDS: APIXABAN 5 MG TABLET 10 MG PO (11:19)
[2021-01-21] MEDS: Potassium Chloride Oral Tablet 20 MEQ 40 MEQ PO (11:19)
[2021-01-21] MEDS: amLODIPine 10 MG Tablet PO (11:19)
[2021-01-21] MEDS: Atorvastatin Calcium 40 MG Tablet PO (11:20)
[2021-01-21] MEDS: Docusate Sodium 100 MG Capsule PO (11:20)
[2021-01-21] MEDS: Carvedilol 3.125 MG TABLET PO (11:20)
[2021-01-21] MEDS: Pantoprazole Sodium 40 MG Tablet PO (11:21)
[2021-01-21] MEDS: Aspirin 81 MG TAB.CHEW PO (11:21)
[2021-01-21 11:36] LABS: Bedside Glucose 102 mg/dL (70-110)
--- NOTE | 2021-01-21 12:35 | TREXTCAR_ITS ---
Diet 01/21/21 11:18 Carb [Diet: Carbohydrate Controlled] Is pt able to select menu?: Yes Routine Orders/Code Status Keep PO Greater than or Equal to (%): 94 Routine Lab Work: CBC (within 3 days) and BMP (within 3 days) Code Status: DNRCC-A Therapies Weight Bearing: Weight bearing as tolerated Problem/Diagnosis (1) Pneumonia: Status: Acute (2) Hypoxia: Status: Acute Allergies/Procedures Done in Hospital Allergies blue dye Allergy (Verified 01/18/21 12:11) PASS OUT Type of Care/Length of Stay Estimated LOS: Convalescent Care Less Than 30 days Type of Care Needed: Intermediate Rehab Potential: Good Prognosis: Good Additional Orders/Day of Discharge Day of Discharge: 01/21/21 Dietary and Speech Recommendations Dietitian Recommendations/Changes: When ready for solids, recommend advanced diet as tolerated to 1800 calorie/consistent carbohydrate/cardiac. ONS as needed once intake established with solid foods. Discharge Plan Admission Admit Date/Time: 01/18/21 17:10 Primary Reason for Your Visit: Pneumonia, Recent acute DVT Attending Provider: Hodan Moody Primary Care Provider: Shawn Almeida Discharge Orders/Prescriptions Prescriptions: New acetaminophen [Tylenol] 325 mg Tablet 650 mg PO Q4H PRN PRN (Reason: Fever, pain -01/18) Qty: 0 RF: 0 Eliquis 5 mg Tablet 10 mg PO BID Qty: 0 RF: 0 guaifenesin 100 mg/5 mL Liquid 20 ml PO Q4H PRN PRN (Reason: COUGH) Qty: 0 RF: 0 carvedilol 3.125 mg Tablet 3.125 mg PO BID Qty: 0 RF: 0 aspirin 81 mg Tablet,Chewable 81 mg PO DAILY Qty: 0 RF: 0 insulin lispro [Humalog KwikPen Insulin] 100 unit/mL Insulin Pen See Protocol unit subcut ACHS Qty: 0 RF: 0 Continued atorvastatin 40 MG tablet 40 mg PO DAILY RF: 0 amlodipine 10 MG tablet 10 mg PO DAILY RF: 0 lansoprazole 30 mg Capsule,Delayed Release(Dr/Ec) 30 mg PO DAILY RF: 0 pregabalin 50 MG capsule 50 mg PO TID Qty: 0 RF: 0 hydralazine 50 mg tablet 100 mg PO TID RF: 0 docusate sodium [DOK] 100 MG capsule 100 mg PO DAILY RF: 0 ondansetron 4 mg tablet,disintegrating 4 mg PO TID PRN (Reason: nausea and vomiting) 3 Days Qty: 10 RF: 0 tamsulosin 0.4 mg Capsule 0.4 mg PO DAILY@1730 Qty: 14 RF: 0 Discontinued insulin aspart U-100 100 UNITS/ML insulin pen 10 units subcut TIDAC RF: 0 insulin degludec 100 UNIT/ML insulin pen 15 unit SQ DAILY Qty: 0 RF: 0 ciprofloxacin HCl [Cipro] 250 mg tablet 250 mg PO QODAY Qty: 3 RF: 0 Referrals / Follow Up: Shawn Almeida MD [Primary Care Provider] - Within 2 Weeks Delmi Siegel MD [STAFF PHYSICIAN] - Within 1 Week Disposition Disposition (needs filled in before D/C Order can be placed): Senior Living Facility
--- NOTE | 2021-01-21 12:45 | PCM.DC.SUM ---
Providers Date of Admission: 01/18/21 Date of Discharge: 01/21/21 Primary Care Physician: Dr. Shawn Almeida MD Reason For Visit: PNA, SUSPECTED COVID, HYPOXIA Diagnosis Discharge Diagnosis (1) Pneumonia: Status: Acute Code(s): J18.9 - Pneumonia, unspecified organism Qualifiers: Laterality: unspecified laterality Lung location: unspecified part of lung Pneumonia type: due to unspecified organism Qualified Code(s): J18.9 - Pneumonia, unspecified organism (2) Hypoxia: Status: Acute Code(s): R09.02 - Hypoxemia Medications at Discharge Home Medications amlodipine 10 mg PO DAILY 06/05/18 atorvastatin 40 mg PO DAILY 06/05/18 lansoprazole 30 mg PO DAILY 11/03/20 pregabalin 50 mg PO TID #0 cap 11/07/20 ondansetron 4 mg PO TID PRN 3 Days #10 tab 12/02/20 docusate sodium [DOK] 100 mg PO DAILY 12/17/20 hydralazine 100 mg PO TID 12/17/20 tamsulosin 0.4 mg PO DAILY@1730 #14 cap 01/16/21 acetaminophen [Tylenol] 650 mg PO Q4H PRN PRN #0 tab 01/21/21 apixaban [Eliquis] 10 mg PO BID #0 tab 01/21/21 aspirin 81 mg PO DAILY #0 tab 01/21/21 carvedilol 3.125 mg PO BID #0 tab 01/21/21 guaifenesin 20 ml PO Q4H PRN PRN #0 ml 01/21/21 insulin lispro [Humalog KwikPen Insulin] See Protocol SUBCUT ACHS #0 ml 01/21/21 cefdinir 300 mg PO BID 5 Days #10 cap 01/22/21 Hospital Course Operations None Procedures None and - (doppler USG of legs) Summary of Care Provided Minutes Spent on Discharge: 45 Hospital Course: 75-year-old female with multiple comorbidities who was recently admitted and discharged on 01/16/21 with acute UTI, EMANUEL. Patient had a left ureteral stent placed in that admission. She was also found with a left soleal DVT. She however was not started on anticoagulation because of history of falls. Patient presented back with progressive fatigue, cough. Chest x-ray that showed a left lingular pneumonia. Patient COVID-19 rapid antigen PCR was negative. Her D-dimer was elevated. Repeat Doppler showed presence of the left soleal DVT. She was started on heparin drip and transition to Eliquis. Patient was continued IV vancomycin and Zosyn. She had a slight elevation in her creatinine necessitating vancomycin to be discontinued. Urine Legionella and streptococcal antigen was negative. Blood cultures were pending at time of discharge. Patient will be discharged on cefdinir 300 mg p.o. twice daily for 5 more days. She should follow-up with her urologist in the outpatient within 2 weeks. She also follow-up with her primary care doctor. [facility]. Physical Exam Narrative Physical exam: General: Alert, Oriented x3, Cooperative, appears fatigued, not on oxygen HEENT: Atraumatic Oral: Moist Mucosa Neck: Supple Lungs: Diminished to auscultation Cardiovascular: HS I+II, regular, no murmurs Abdomen: Bowel Sounds Present, Soft, Non Tender Extremities: No edema Weight / BMI Weight Weight: 68.5 kg Body Mass Index (BMI) 27.4 ABG / Lab / Microbiology Data Result Diagrams: 01/21/21 05:56 01/21/21 05:56 Laboratory: Laboratory Results - last 24 hr 01/20/21 15:47: POC Glucose 79 01/20/21 16:17: POC Glucose 128 H 01/20/21 22:22: POC Glucose 254 H 01/21/21 05:56: WBC 13.3 H, RBC 3.52 L, Hgb 9.5 L, Hct 31.7 L, MCV 90.1, MCH 27.0, MCHC 30.0 L, RDW Std Deviation 53.2 H, RDW Coeff of Wade 16.3 H, Plt Count 272, MPV 10.4, Immature Gran % (Auto) 3.400 H, Neut % (Auto) 74.8 H, Lymph % (Auto) 10.8 L, [place] % (Auto) 8.3, Eos % (Auto) 2.5, Baso % (Auto) 0.2, Absolute Neuts (auto) 10.0 H, Absolute Lymphs (auto) 1.44, Nucleated RBC % 0 01/21/21 05:56: Sodium 143, Potassium 3.4 L, Chloride 114 H, Carbon Dioxide 19.0 L, Anion Gap 10, BUN 50 H, Creatinine 2.86 H, Estim Creat Clear Calc 13.22, Est GFR (MDRD) Af Amer 21 L, Est GFR (MDRD) Non-Af 17 L, BUN/Creatinine Ratio 17.5, Glucose 81, Calcium 7.8 L, Total Bilirubin 0.40, AST 10 L, ALT 9 L, Alkaline Phosphatase 102, Total Protein 6.4, Albumin 2.0 L, Globulin 4.4 H, Albumin/Globulin Ratio 0.5 L 01/21/21 05:56: Random Vancomycin 16.9 H 01/21/21 05:56: APTT 45.4 H 01/21/21 05:56: B-Natriuretic Peptide 435.9 H 01/21/21 06:40: POC Glucose 83 01/21/21 11:09: POC Glucose 102 Microbiology: Microbiology 01/18/21 18:30 Urine, Clean Catch Urine Culture - Final Culture exhibits no growth. 01/18/21 18:50 Mucosa - Nasopharyngeal Respiratory Panel (PCR) - Final 01/18/21 18:30 Urine Catheter - Catheter Legionella Antigen - Final 01/18/21 18:30 Urine Catheter - Catheter Streptococcus pneumoniae Antigen (M - Final Radiography Diagnostic Testing: Radiology Impression Echocardiogram 01/20/21 15:39 Interpretation Summary Normal LV size. Left ventricular systolic function is normal. The estimated ejection fraction is 60 %. Structurally normal valves. Ordering Physician: Hodan Moody Referring Physician: Shawn Almeida Performed By: Neeta Toscano, SOFYA, RVT D/C Instructions Discharge Diet: 2000 Calorie Control Diet and 2000 mg Sodium Diet Discharge Activity: Return to Normal Activity Weight Bearing Status: Weight bearing as tolerated Meaningful Use Info Meaningful Use Diagnoses (Choose all that apply): None applicable Discharge Plan Admission Admit Date/Time: 01/18/21 17:10 Primary Reason for Your Visit: Pneumonia, Recent acute DVT Attending Provider: Hodan Moody Primary Care Provider: Shawn Almeida Discharge Orders/Prescriptions Prescriptions: New acetaminophen [Tylenol] 325 mg Tablet 650 mg PO Q4H PRN PRN (Reason: Fever, pain 1-01/18) Qty: 0 RF: 0 Eliquis 5 mg Tablet 10 mg PO BID Qty: 0 RF: 0 guaifenesin 100 mg/5 mL Liquid 20 ml PO Q4H PRN PRN (Reason: COUGH) Qty: 0 RF: 0 carvedilol 3.125 mg Tablet 3.125 mg PO BID Qty: 0 RF: 0 aspirin 81 mg Tablet,Chewable 81 mg PO DAILY Qty: 0 RF: 0 insulin lispro [Humalog KwikPen Insulin] 100 unit/mL Insulin Pen See Protocol unit subcut ACHS Qty: 0 RF: 0 cefdinir 300 mg capsule 300 mg PO BID 5 Days Qty: 10 RF: 0 Continued atorvastatin 40 MG tablet 40 mg PO DAILY RF: 0 amlodipine 10 MG tablet 10 mg PO DAILY RF: 0 lansoprazole 30 mg Capsule,Delayed Release(Dr/Ec) 30 mg PO DAILY RF: 0 pregabalin 50 MG capsule 50 mg PO TID Qty: 0 RF: 0 hydralazine 50 mg tablet 100 mg PO TID RF: 0 docusate sodium [DOK] 100 MG capsule 100 mg PO DAILY RF: 0 ondansetron 4 mg tablet,disintegrating 4 mg PO TID PRN (Reason: nausea and vomiting) 3 Days Qty: 10 RF: 0 tamsulosin 0.4 mg Capsule 0.4 mg PO DAILY@1730 Qty: 14 RF: 0 Discontinued insulin aspart U-100 100 UNITS/ML insulin pen 10 units subcut TIDAC RF: 0 insulin degludec 100 UNIT/ML insulin pen 15 unit SQ DAILY Qty: 0 RF: 0 ciprofloxacin HCl [Cipro] 250 mg tablet 250 mg PO QODAY Qty: 3 RF: 0 Referrals / Follow Up: Delmi Siegel MD [STAFF PHYSICIAN] - Within 1 Week Shawn Almeida MD [Primary Care Provider] - Within 2 Weeks Disposition Disposition (needs filled in before D/C Order can be placed): Residential Facility Charges/Coding Visit Charges Inpatient E&M: 32031 Disch Hosp
--- NOTE | 2021-01-21 13:16 | CASEMGMT ---
Addendum entered by Barbara Friedman 01/21/21 15:42: SW offered to call pt's son or daughter and pt states she has already called them. Addendum entered by Barbara Friedman 01/21/21 15:33: LOC results obtained. SARAH faxed LOC results to Dah[facility] at [facility]. SW placed original in SNF folder and copy on pt's chart. SW spoke with RN, pt to transport via cot. SW accessed trip assist and arranged transportation via cot for 5:00pm. Transportation form completed and placed on SNF folder and copy on pt's chart. SW in to speak with pt. SW updated pt that she will be discharged to [facility] today at 5:00pm. Pt states she doesn't feel ready. SW asked pt why she doesn't feel ready. Pt states no one came and told her about her heart. SW informed pt that the physician put the discharge in for today, there is no medical reason to keep pt. Pt states understanding. SW updated RN on transportation time, informed RN that pt had questions regarding her heart. RN states pt had Echo done today, that is what pt is asking about. SW placed a call to Dahiana at [facility] and left message regarding transportation time. Plan: [facility] under intermediate level of care with physician's transporting pt via cot at 5:00pm Addendum entered by Barbara Friedman 01/21/21 14:49: SW placed a call to [facility] and spoke with Catherine. Catherine confirms she received LOC request, will review and send results to this worker later today. Original Note: Social Work Note SARAH faxed completed discharge paperwork to [facility] including transfer to extended care facility, signed medication list, any scripts, COVID test/tool and convalescent 7000. Original in SNF folder and copy on pt's chart. SARAH completed convalescent 7000 in HENS. Original in SNF folder and copy on pt's chart. SARAH awaiting Level Of Care, will fax Level of Care once results are obtained. Plan: [facility] pending LOC Barbara Friedman LOG BRANDER, MARRIAGE AND FAMILY THERAPIST
--- NOTE | 2021-01-21 14:52 | PHA.DC.MR ---
Pharmacy Service has performed discharge medication reconciliation for this patient. The patient's discharge medication list was reviewed for discrepancies and discrepancies were resolved. Home Medications amlodipine 10 mg PO DAILY 06/05/18 atorvastatin 40 mg PO DAILY 06/05/18 lansoprazole 30 mg PO DAILY 11/03/20 pregabalin 50 mg PO TID #0 cap 11/07/20 ondansetron 4 mg PO TID PRN 3 Days #10 tab 12/02/20 docusate sodium [DOK] 100 mg PO DAILY 12/17/20 hydralazine 100 mg PO TID 12/17/20 tamsulosin 0.4 mg PO DAILY@1730 #14 cap 01/16/21 acetaminophen [Tylenol] 650 mg PO Q4H PRN PRN #0 tab 01/21/21 apixaban [Eliquis] 10 mg PO BID #0 tab 01/21/21 aspirin 81 mg PO DAILY #0 tab 01/21/21 carvedilol 3.125 mg PO BID #0 tab 01/21/21 guaifenesin 20 ml PO Q4H PRN PRN #0 ml 01/21/21 insulin lispro [Humalog KwikPen Insulin] See Protocol SUBCUT ACHS #0 ml 01/21/21
[2021-01-21] MEDS: Insulin Lispro 100 UNIT/ML INSULN.PEN SC (16:22)
[2021-01-21] MEDS: Tamsulosin HCl 0.4 MG Capsule PO (16:24)
[2021-01-21 16:31] LABS: Bedside Glucose 309 mg/dL (70-110)
--- NOTE | 2021-01-22 16:48 | CASEMGMT ---
Social Work Note SARAH received updated script from physician. SARAH faxed script to [facility], where pt was discharged to yesterday. SARAH then received call from Dahiana at [facility] stating she received script but pt left AMA today from [facility], states pt's sister came and got her. SARAH asked pt to disregard script then. SARAH placed a call to pt's CM Isela Desai and updated her that pt did discharge to [facility] yesterday. Isela states she is aware and also aware that pt left AMA from [facility] today. Isela requests discharge summary be faxed to her. SARAH faxed discharge summary to Isela Dseai. Barbara Friedman MESH CUTTER, ROLL OPERATOR
== END 2021-01-21 17:10 | DRG 139 ==
LOC: ED 13:08 → MS3 17:45
PROVIDERS: Hospitalist; Admitting Provider Family Medicine; Emergency Provider Student in an Organized Health Care Education/Training Program; PCP Family Medicine; Visit Provider Internal Medicine
DX: J18.9 Pneumonia, unspecified organism (principal); N18.32 Chronic kidney disease, stage 3b; E11.22 Type 2 diabetes mellitus with diabetic chronic kidney disease; I12.9 Hypertensive chronic kidney disease with stage 1 through stage 4 chronic kidney disease, or unspecified chronic kidney disease; E78.5 Hyperlipidemia, unspecified; K21.9 Gastro-esophageal reflux disease without esophagitis; R09.02 Hypoxemia; E11.42 Type 2 diabetes mellitus with diabetic polyneuropathy; R77.8 Other specified abnormalities of plasma proteins; I82.462 Acute embolism and thrombosis of left calf muscular vein; Z79.899 Other long term (current) drug therapy; Z79.4 Long term (current) use of insulin; Z87.891 Personal history of nicotine dependence; Z91.81 History of falling
CPT/HCPCS: 36415; 71045; 80053; 80202; 81001; 82728; 82962; 83605; 83615; 83880; 84145; 84484; 85025; 85379; 85610; 85730; 86140; 87040; 87086; 87449; 87633; 87635; 87641; 93005; 93306; 93970; 94640; 97110; 97162; 97166; 97535; 97802; 99251; 99285; J7030; J7040; U0005; A4216; G0463; J1940; J2405; U0003

== ENCOUNTER 2021-01-23 21:47 | Inpatient (IN) | payer MEDICAID, SELFPAY ==
[2021-01-23] VITALS (7 sets, daily range): BP systolic 163–185; BP diastolic 66–75; PULSE 88–90; RESP 24–28; TEMP 35.8–35.9; O2SAT 85–95; BMI 27.1
--- NOTE | 2021-01-23 00:01 | RAD_ITS ---
STUDY: X-RAY CHEST REASON FOR EXAM: Female, 75 years old. chest pain TECHNIQUE: Single AP portable view of the chest. COMPARISON: 01/18/2021 FINDINGS: Slightly increased interstitial prominence throughout suggesting worsening pneumonia and/or pulmonary edema. Increase in small left effusion. There is mild cardiac enlargement. Normal mediastinum and roya. Normal visualized pulmonary arteries. Normal visualized aortic arch and descending thoracic aorta. Normal visualized thoracic spine. Normal visualized ribs, clavicles, and shoulders. There is no demonstrated abnormality of the visualized soft tissue structures of the upper abdomen. RAD/Chest 1 View (Portable) IMPRESSION: Increased interstitial prominence throughout suggesting worsening pneumonia and/or pulmonary edema Electronically Signed: Ja Simmons DO at 0:20 EDT Tel , Service support ,
--- NOTE | 2021-01-23 22:38 | EKG12_ITS ---
Test Reason : DYSRHYTHMIA Blood Pressure : / mmHG Vent. Rate : 089 BPM Atrial Rate : 089 BPM P-R Int : 168 ms QRS Dur : 124 ms QT Int : 432 ms P-R-T Axes : 050 003 106 degrees QTc Int : 525 ms Normal sinus rhythm Right bundle branch block Abnormal ECG Confirmed by FLEX ROWELL, FREEMAN ([id number]), editor greeting card GULSHAN TRAYLOR ([id number]) on 01/27/2021 8:42:18 AM Referred By: EDDIE Confirmed By:FREEMAN MCCORD MD
[2021-01-23] MEDS: Aspirin 81 MG TAB.CHEW 324 MG PO (22:46)
--- NOTE | 2021-01-23 22:56 | ED.VIS.DYS ---
HPI History of Present Illness Chief Complaint: Shortness of Breath Narrative Narrative: 75-year-old female recently discharged from the hospital presenting with shortness of breath. She states she did not qualify for oxygen prior to her discharge but she notes that she has been short of breath at home. She believes she was wheezing earlier. She denies history of COPD. Patient does not have any chest pain. It is reported that EMS stated that her pulse ox was 85% at home. She denies any fever or chills. She does report she has a history of pneumonia recently. Patient has tested negative for Covid in the hospital on her previous admit. She is on Eliquis. [facility] Medical History Chronic kidney disease, stage 3b Cognitive decline Depression Diabetes Gastric reflux High cholesterol Hydronephrosis Hypertension Injury of back Nephrolithiasis Non-smoker Pyelonephritis Shortness of breath on exertion Uncontrolled type 2 diabetes mellitus Uses wheelchair Home Medications amlodipine 10 mg PO DAILY 06/05/18 [History Last Taken 08/04/19] atorvastatin 40 mg PO DAILY 06/05/18 [History Last Taken 08/04/19] lansoprazole 30 mg PO DAILY 11/03/20 [History Last Taken Unknown] pregabalin 50 mg PO TID #0 cap 11/07/20 [Rx Last Taken 08/04/19] ondansetron 4 mg PO TID PRN 3 Days #10 tab 12/02/20 [Rx Last Taken Unknown] docusate sodium [DOK] 100 mg PO DAILY 12/17/20 [History Last Taken Unknown] hydralazine 100 mg PO TID 12/17/20 [History Last Taken Unknown] tamsulosin 0.4 mg PO DAILY@1730 #14 cap 01/16/21 [Rx Last Taken Unknown] acetaminophen [Tylenol] 650 mg PO Q4H PRN PRN #0 tab 01/21/21 [Rx Last Taken Unknown] apixaban [Eliquis] 10 mg PO BID #0 tab 01/21/21 [Rx Last Taken Unknown] aspirin 81 mg PO DAILY #0 tab 01/21/21 [Rx Last Taken Unknown] carvedilol 3.125 mg PO BID #0 tab 01/21/21 [Rx Last Taken Unknown] guaifenesin 20 ml PO Q4H PRN PRN #0 ml 01/21/21 [Rx Last Taken Unknown] insulin lispro [Humalog KwikPen Insulin] See Protocol SUBCUT ACHS #0 ml 01/21/21 [Rx Last Taken Unknown] cefdinir 300 mg PO BID 5 Days #10 cap 01/22/21 [Rx Last Taken Unknown] Allergy/AdvReac Type Severity Reaction Status Date / Time blue dye Allergy PASS OUT Verified 01/18/21 12:11 Family History Father Diabetes Mother Hypertension Surgical History H/O: hysterectomy History of cholecystectomy History of cystoscopy Social History household members: none Smoking Status: Former smoker alcohol intake: never substance use type: does not use ROS ROS ED Constitutional Constitutional ED: Denies chills or fever(s) Eyes Eyes: Denies blurry vision or change in vision ENT ENT ED: Denies rhinorrhea or sore throat Cardiovascular Cardiovascular: Denies chest pain or palpitations Respiratory/Chest Respiratory/Chest: Reports cough, dyspnea and dyspnea on exertion Gastrointestinal Gastrointestinal: Denies abdominal pain, nausea or vomiting Genitourinary Genitourinary ED: Denies dysuria or hematuria Musculoskeletal Musculoskeletal: Denies arthralgias or myalgias Integumentary Denies rash Neurologic Neurologic: Denies headache(s) or paresthesias EXAM Physical Exam Const Vital Signs: 01/23/21 21:48 01/23/21 21:58 01/23/21 22:37 Temperature 96.4 F L 96.6 F L Temperature Source Temporal Temporal Pulse Rate 88 88 Respiratory Rate 28 H 28 H 24 H Respiratory Effort Short of Breath Labored Accessory Muscle Use Respiratory Depth Deep Respiratory Pattern Blood Pressure 185/66 H 185/66 H Blood Pressure Mean 105 105 Pulse Ox 94 93 95 Oxygen Delivery Method Nasal Cannula Room Air Nasal Cannula Oxygen Flow Rate (L/min) 2 2 2 01/23/21 22:42 01/23/21 22:58 01/23/21 23:00 Temperature Temperature Source Pulse Rate 89 89 Respiratory Rate 28 H 28 H Respiratory Effort Respiratory Depth Respiratory Pattern Blood Pressure 163/75 H 163/75 H Blood Pressure Mean 104 104 Pulse Ox 88 94 94 Oxygen Delivery Method Room Air Nasal Cannula Nasal Cannula Oxygen Flow Rate (L/min) 2 2 01/23/21 23:03 01/24/21 00:15 Temperature Temperature Source Pulse Rate 90 89 Respiratory Rate 28 H 28 H Respiratory Effort Short of Breath Labored Respiratory Depth Shallow Respiratory Pattern Tachypnea Blood Pressure 169/74 H Blood Pressure Mean 105 Pulse Ox 95 91 Oxygen Delivery Method Nasal Cannula Nasal Cannula Oxygen Flow Rate (L/min) 2 2 Positive unkempt General Appearance ED: unkempt and NAD HEENT Reports dry mucous membranes atraumatic Mouth ED: Yes dry mucous membranes Mouth: dry mucous membranes Eyes PERRL and EOMs intact bilaterally Resp Resp Narrative: Tachypneic Auscultation: wheezes expiratory wheezes Cardio regular rate and regular rhythm GI non-tender and non-distended Palpation: soft Neuro oriented x3 Sensorium / Orientation: alert Psych Appearance: unkempt Skin Lesions: no lesions Rashes: no rashes MDM MDM MDM Narrative Medical decision making narrative: Patient presenting with shortness of breath and is found to be hypoxic at 88 in the ED. Is supported she was 85 prior to arrival. She was wheezing and was given breathing treatments and Solu-Medrol. She is previously admitted for lingular pneumonia and hypoxia. She previously was treated for the wheezing as well. She is only been home for a couple of days and now she is presenting again with hypoxia. She was tested for COVID-19 inpatient and tested negative. Patient's blood work today shows that her white blood cell count is improved to 11.4. Her hemoglobin is near baseline. Platelets are normal. Creatinine is 2.71 and near baseline. BNP is elevated 813. Troponin is 40. Chest x-ray on my interpretation shows worsening chest x-ray from previous and could possibly be pneumonia or pulmonary edema. Patient did test positive for COVID-19 today for the first time. And this is likely the source of her respiratory symptoms. Given her recent hospitalization and her hypoxia of as well as new testing of COVID-19 I feel she would benefit from inpatient treatment as likely she will not do well at home. She has been stable on 2 L here in the ED. Patient discussed with hospitalist for admission. Impression: 1. COVID-19 pneumonitis 2. Hypoxic respiratory failure Lab Data Attestation: I reviewed the patient's lab results. Labs: Laboratory Results - last 24 hr 10/15/21 10/15/21 10/15/21 22:55 22:55 22:55 WBC 11.4 H RBC 3.26 L Hgb 9.1 L Hct 29.1 L MCV 89.3 MCH 27.9 MCHC 31.3 L RDW Std Deviation 54.1 H RDW Coeff of Wade 16.5 H Plt Count 321 MPV 10.9 Immature Gran % (Auto) 3.300 H Neut % (Auto) 88.4 H Lymph % (Auto) 3.8 L [place] % (Auto) 4.3 Eos % (Auto) 0.0 Baso % (Auto) 0.2 Absolute Neuts (auto) 10.1 H Absolute Lymphs (auto) 0.43 L Nucleated RBC % 0 Differential Comment SCANNED Sodium 147 H Potassium 4.4 Chloride 118 H Carbon Dioxide 22.0 Anion Gap 7 BUN 42 H Creatinine 2.71 H Estim Creat Clear Calc 13.95 Est GFR (MDRD) Af Amer 22 L Est GFR (MDRD) Non-Af 18 L BUN/Creatinine Ratio 15.5 Glucose 354 H Calcium 8.8 Troponin I High Sens 40 B-Natriuretic Peptide 813.3 H Radiography Diagnostic Testing: Clinical Impression(s) from Imaging Studies Chest X-Ray 01/23/21 00:01 IMPRESSION: Increased interstitial prominence throughout suggesting worsening pneumonia and/or pulmonary edema Electronically Signed: Ja Simmons DO at 0:20 EDT Tel , Service support , Discharge Plan Triage Chief Complaint: Shortness of Breath ED Provider: Tremayne Hobbs Dx/Rx/DC Orders Prescriptions: No Action atorvastatin 40 MG tablet 40 mg PO DAILY RF: 0 amlodipine 10 MG tablet 10 mg PO DAILY RF: 0 lansoprazole 30 mg Capsule,Delayed Release(Dr/Ec) 30 mg PO DAILY RF: 0 pregabalin 50 MG capsule 50 mg PO TID Qty: 0 RF: 0 hydralazine 50 mg tablet 100 mg PO TID RF: 0 docusate sodium [DOK] 100 MG capsule 100 mg PO DAILY RF: 0 ondansetron 4 mg tablet,disintegrating 4 mg PO TID PRN (Reason: nausea and vomiting) 3 Days Qty: 10 RF: 0 tamsulosin 0.4 mg Capsule 0.4 mg PO DAILY@1730 Qty: 14 RF: 0 acetaminophen [Tylenol] 325 mg Tablet 650 mg PO Q4H PRN PRN (Reason: Fever, pain -01/18) Qty: 0 RF: 0 Eliquis 5 mg Tablet 10 mg PO BID Qty: 0 RF: 0 guaifenesin 100 mg/5 mL Liquid 20 ml PO Q4H PRN PRN (Reason: COUGH) Qty: 0 RF: 0 carvedilol 3.125 mg Tablet 3.125 mg PO BID Qty: 0 RF: 0 aspirin 81 mg Tablet,Chewable 81 mg PO DAILY Qty: 0 RF: 0 insulin lispro [Humalog KwikPen Insulin] 100 unit/mL Insulin Pen See Protocol unit subcut ACHS Qty: 0 RF: 0 cefdinir 300 mg capsule 300 mg PO BID 5 Days Qty: 10 RF: 0 Primary Care Provider: Shawn Almeida
[2021-01-23] MEDS: Ipratropium/Albuterol Sulfate 3 ML AMPUL.NEB INHALATION (23:03)
[2021-01-23] MEDS: Albuterol 2.5 MG/3 ML VIAL.NEB. INHALATION (23:03)
[2021-01-23] MEDS: MethylPREDNISolone 125 MG/2 ML Vial IV (23:23)
--- NOTE | 2021-01-23 23:28 | CPS ---
x1 Albuterol given to pt. in ER as well
[2021-01-23 23:41] LABS: Absolute Lymphocyte Count 0.43 X10^3/uL (0.83-4.51); Absolute Neutrophil Count 10.1 X10^3/uL (2.0-7.7); Basophil# 0.02 X10^3/uL; Basophil% 0.2 % (0-1); Hematocrit 29.1 % (37-47); Hemoglobin 9.1 g/dL (12.0-15.0); Lymphocyte # 0.43 X10^3/ul (0.83-4.51); Lymphocyte % 3.8 % (19-41); Mean Corp Hgb Conc 31.3 g/dL (32-36); Mean Corpuscular Hgb 27.9 pg (27.0-32.0); Mean Corpuscular Volume 89.3 fL (81-99); Mean Platelet Vol. 10.9 fl (6.2-12.0); Monocyte# 0.49 X10^3/uL; Monocyte% 4.3 % (0-10); NRBC Flagged by Analyzer 0 % (0-5); Neutrophil # 10.08 X10^3/uL (2.7-7.7); Neutrophil % 88.4 % (47-70); POSITIVE DIFFERENTIAL YES; Platelet Count 321 K/mm3 (150-450); RBC Distribution Width CV 16.5 % (11.6-14.6); RBC Distribution Width SD 54.1 fl (35.1-43.9); Red Blood Count 3.26 M/mm3 (4.2-5.4); White Blood Count 11.4 K/mm3 (4.4-11.0)
[2021-01-23 23:46] LABS: Differential Indicated SCAN CRITERIA MET
[2021-01-23 23:47] LABS: Anion Gap 7 (5-15); BUN 42 mg/dL (7-18); BUN/Creat Ratio 15.5 RATIO (10-20); Calcium,Total 8.8 mg/dL (8.5-10.1); Chloride 118 mmol/L (98-107); Creatinine, Serum 2.71 mg/dL (0.55-1.02); EST Glomerular Filtration Rate 18 mL/min (>60); Est Glom Filt Rate - Afr Amer 22 mL/min (>60); Estimated Creatinine Clearance 13.95 ml/min; Glucose 354 mg/dL (74-106); Potassium 4.4 mmol/L (3.5-5.1); Sodium Level 147 mmol/L (136-145); Troponin-I HS 40 pg/mL (3.0-54.0)
[2021-01-24] VITALS (16 sets, daily range): BP systolic 158–181; BP diastolic 46–74; PULSE 81–94; RESP 18–28; TEMP 35.7–36.8; O2SAT 91–96; BMI 26.9
[2021-01-24 00:07] LABS: Differential Comment SCANNED
[2021-01-24 00:55] LABS: BNP,B-Type NATRIURETIC PEPTIDE 813.3 pg/mL (0-100)
--- NOTE | 2021-01-24 01:15 | HP.PCM.HOS_ITS ---
HPI - General General Date of Admission: 01/24/21 HPI Narrative DOMINICK NEELY, is a 75 F with a significant history of CKD stage IIIb who presents to the emergency department with a 2-week history of a persistent shortness of breath. Associated with her symptoms is a productive cough; anorexia; muscle aches; fatigue and insomnia. She denies a fever. She reports chills. Reportedly Per paramedics patient oxygen saturation was 85% on room air. Emergent department doctor reported that when patient oxygen was taken away at the emergency department her oxygen saturation dropped to 88%. Patient is unvaccinated against COVID-19 virus. Patient was at a hospital and was discharged on 01/21/2021. Multiple Covid test at that time was negative. [facility] Medical History Chronic kidney disease, stage 3b Cognitive decline Depression Diabetes Gastric reflux GERD (gastroesophageal reflux disease) High cholesterol History of tobacco use HLD (hyperlipidemia) HTN (hypertension) Hydronephrosis Hypertension Injury of back Nephrolithiasis Non-smoker Pyelonephritis Shortness of breath on exertion Uncontrolled type 2 diabetes mellitus Uses wheelchair Home Medications amlodipine 10 mg PO DAILY 06/05/18 [History Last Taken 08/04/19] atorvastatin 40 mg PO DAILY 06/05/18 [History Last Taken 08/04/19] lansoprazole 30 mg PO DAILY 11/03/20 [History Last Taken Unknown] pregabalin 50 mg PO TID #0 cap 11/07/20 [Rx Last Taken 08/04/19] ondansetron 4 mg PO TID PRN 3 Days #10 tab 12/02/20 [Rx Last Taken Unknown] docusate sodium [DOK] 100 mg PO DAILY 12/17/20 [History Last Taken Unknown] hydralazine 100 mg PO TID 12/17/20 [History Last Taken Unknown] tamsulosin 0.4 mg PO DAILY@1730 #14 cap 01/16/21 [Rx Last Taken Unknown] acetaminophen [Tylenol] 650 mg PO Q4H PRN PRN #0 tab 01/21/21 [Rx Last Taken Unknown] apixaban [Eliquis] 10 mg PO BID #0 tab 01/21/21 [Rx Last Taken Unknown] aspirin 81 mg PO DAILY #0 tab 01/21/21 [Rx Last Taken Unknown] carvedilol 3.125 mg PO BID #0 tab 01/21/21 [Rx Last Taken Unknown] guaifenesin 20 ml PO Q4H PRN PRN #0 ml 01/21/21 [Rx Last Taken Unknown] insulin lispro [Humalog KwikPen Insulin] See Protocol SUBCUT ACHS #0 ml 01/21/21 [Rx Last Taken Unknown] cefdinir 300 mg PO BID 5 Days #10 cap 01/22/21 [Rx Last Taken Unknown] Allergy/AdvReac Type Severity Reaction Status Date / Time blue dye Allergy PASS OUT Verified 01/18/21 12:11 Family History Father Diabetes Mother Hypertension Surgical History H/O: hysterectomy History of cholecystectomy History of cystoscopy Social History household members: none Smoking Status: Former smoker alcohol intake: never substance use type: does not use ROS ROS Narrative Constitutional: Reports chills, fatigue and anorexia. Denies fever. Eyes: Denies blurry vision, change in eye color, change in vision, discharge from eye(s), double vision, erythema, eye pain, loss of vision or other HEENT: Denies abnormal hearing, dysphagia, ear pain, epistaxis, headache(s), hearing loss, nasal congestion, nasal discharge, post nasal drip, sinus pressure, sore throat or other Cardiovascular: Denies chest pain or palpitations. Respiratory/Chest: Reports productive cough. Reports shortness of breath. Gastrointestinal: Denies abdominal pain, coffee ground emesis, constipation, diarrhea, dyspepsia, hematemesis, hematochezia, loose stools, melena, nausea, vomiting or other Genitourinary: Denies burning urination, difficulty urinating, dysuria, hematuria, nocturia, urinary frequency, urinary hesitancy, urinary incontinence, urinary urgency or other Musculoskeletal: Denies arthralgias, back pain, joint pain, joint stiffness, joint swelling, myalgias, neck pain or other Neurologic: Denies abnormal gait, abnormal speech, confusion, disequilibrium, dizziness, focal weakness, headache(s), numbness, paresthesias, seizure-like activity, seizures, syncope, tingling, tremor(s) or other Psychiatric: Denies anxiety, depression, homicidal ideation, suicidal ideation or other Endocrinology: Denies change in body appearance, cold intolerance, excessive sweating, heat intolerance, polydipsia, polyuria or other Hematologic/Lymphatic: Denies anemia, easy bleeding, easy bruising, lymphadenopathy or other Integumentary: Denies rashes Allergic/Immunologic: Denies rhinitis, hives, eczema, asthma or other Vital Signs Vital Signs Vital Signs: 01/23/21 21:48 01/23/21 21:58 01/23/21 22:37 Temperature 96.4 F L 96.6 F L Temperature Source Temporal Temporal Pulse Rate 88 88 Respiratory Rate 28 H 28 H 24 H Respiratory Effort Short of Breath Labored Accessory Muscle Use Respiratory Depth Deep Respiratory Pattern Blood Pressure 185/66 H 185/66 H Blood Pressure Mean 105 105 Pulse Ox 94 93 95 Oxygen Delivery Method Nasal Cannula Room Air Nasal Cannula Oxygen Flow Rate (L/min) 2 2 2 01/23/21 22:42 01/23/21 22:58 01/23/21 23:00 Temperature Temperature Source Pulse Rate 89 89 Respiratory Rate 28 H 28 H Respiratory Effort Respiratory Depth Respiratory Pattern Blood Pressure 163/75 H 163/75 H Blood Pressure Mean 104 104 Pulse Ox 88 94 94 Oxygen Delivery Method Room Air Nasal Cannula Nasal Cannula Oxygen Flow Rate (L/min) 2 2 01/23/21 23:03 01/24/21 00:15 Temperature Temperature Source Pulse Rate 90 89 Respiratory Rate 28 H 28 H Respiratory Effort Short of Breath Labored Respiratory Depth Shallow Respiratory Pattern Tachypnea Blood Pressure 169/74 H Blood Pressure Mean 105 Pulse Ox 95 91 Oxygen Delivery Method Nasal Cannula Nasal Cannula Oxygen Flow Rate (L/min) 2 2 Weight Weight: 65 kg Body Mass Index (BMI) 27.1 Physical Exam Narrative Physical exam: General: Well-nourished, well-developed. Head: Normocephalic, atraumatic, no tenderness Eyes: PERRLA, EOMI ENT, no trauma, moist mucous membranes, no rhinorrhea Neck: Nontender, full range of motion, no spinal tenderness, deformities, step- off CVS: Regular rate and rhythm. S1-S2 present. No murmur, gallop or rub. Respiratory : Tachypnea; Rales and rhonchi. Chest wall nontender, no wheezing Abdomen: Soft, nontender, nondistended, normal bowel sounds, no masses : Deferred Back: Nontender, no CVA tenderness, no midline spinal tenderness, deformities, step-offs Extremities: Bilateral legs and feet edema. Skin: Normal color, no trauma, abrasions Neuro: Alert, oriented, cranial nerves II through XII grossly intact. Psychiatry: Normal mood. Normal affect. Not depressed. Not anxious. Results Lab / Micro Data Result Diagrams: 01/23/21 22:55 01/23/21 22:55 Labs: Laboratory Results - last 24 hr 01/23/21 22:55: WBC 11.4 H, RBC 3.26 L, Hgb 9.1 L, Hct 29.1 L, MCV 89.3, MCH 27.9, MCHC 31.3 L, RDW Std Deviation 54.1 H, RDW Coeff of Wade 16.5 H, Plt Count 321, MPV 10.9, Immature Gran % (Auto) 3.300 H, Neut % (Auto) 88.4 H, Lymph % (Auto) 3.8 L, [place] % (Auto) 4.3, Eos % (Auto) 0.0, Baso % (Auto) 0.2, Absolute Neuts (auto) 10.1 H, Absolute Lymphs (auto) 0.43 L, Nucleated RBC % 0, Differential Comment SCANNED 01/23/21 22:55: Sodium 147 H, Potassium 4.4, Chloride 118 H, Carbon Dioxide 22.0, Anion Gap 7, BUN 42 H, Creatinine 2.71 H, Estim Creat Clear Calc 13.95, Est GFR (MDRD) Af Amer 22 L, Est GFR (MDRD) Non-Af 18 L, BUN/Creatinine Ratio 15.5, Glucose 354 H, Calcium 8.8, Troponin I High Sens 40 01/23/21 22:55: B-Natriuretic Peptide 813.3 H Micro: Microbiology 01/24/21 00:10 Nasal Secretion SARS-CoV-2 Antigen (Rapid) - Final SARS-CoV-2 (COVID 19) Radiology Impression Chest X-Ray 01/23/21 00:01 IMPRESSION: Increased interstitial prominence throughout suggesting worsening pneumonia and/or pulmonary edema Electronically Signed: Ja Simmons DO at 0:20 EDT Tel , Service support , Assessment & Plan Assessment/Plan (1) Acute hypoxemic respiratory failure: (2) COVID-19: (3) Hypernatremia: PLAN: Acute hypoxemic respiratory failure secondary to SARS- COV 2 Oxygen saturation of 85% by paramedics and 88% on room air at the ED. Tachypnea, and Rales. Required supplemental oxygen at emergency department and continued. Positive rapid Covid antigen at the emergency department. Chest x-ray was independently interpreted and agree with acute interpretation above. Previous chest x-ray was also reviewed. Presentation chest x-ray appears worsened than before. Initially given Solu-Medrol at the emergency department. Decadron ordered. Patient is not a candidate of remdesivir due to chronic kidney disease with estimated GFR of less than 30. Discharge on cefdinir on a previous admission. Acute lingular pneumonia was being treated at that time. Continue cefdinir at this time. Will check a procalcitonin for further antibiotics determination. He did patient has a kidney disease which may affect procalcitonin. Tylenol for fever Guaifenesin continued Hypernatremia and hyperchloremia Sodium of 144 on presentation. Patient bilateral leg edema and high blood pressure. BNP of 813.3. Possibly fluid overload. Echocardiogram on 01/20/2021 showed normal ejection fraction. Will give a one- time dose of Lasix IV and trend BMP. Hypertension Blood pressure is not within goal Hydralazine; amlodipine and carvedilol continued. As needed hydralazine ordered. Trend blood pressure and adjust blood pressure medications. Diabetes mellitus with nephropathy and neuropathy Patient with hyperglycemia on presentation Blood glucose on presentation was 354. Review of old records shows erratic blood glucose. Accu-Chek with correction scale insulin continued. CKD stage IV CKD like secondary to hypertensive nephrosclerosis and diabetic nephropathy. Stable Trend BMP. Superficial DVT of left soleus Home Eliquis continued DVT prophylaxis Home Eliquis continued. Charges/Coding Visit Charges Inpatient E&M: 68438 In Hosp L3
[2021-01-24] MEDS: Furosemide 40 MG/4 ML Vial IV ×3 (03:23→17:15)
[2021-01-24] MEDS: 0.9% Saline Lock 10 ML Syringe IV ×4 (03:23→23:39)
[2021-01-24] MEDS: hydrALAZINE 50 MG Tablet 100 MG PO ×3 (06:19→23:02)
--- NOTE | 2021-01-24 06:37 | PCM.PN.BLA ---
Progress Note Nurse reported patient has pink tinge urine. Get urinalysis. On eliquis. History of clots. Follow H&H and urinalysis.
[2021-01-24 07:49] LABS: Absolute Lymphocyte Count 0.21 X10^3/uL (0.83-4.51); Basophil# 0.01 X10^3/uL; Basophil% 0.1 % (0-1); Hemoglobin 8.7 g/dL (12.0-15.0); Lymphocyte # 0.21 X10^3/ul (0.83-4.51); Lymphocyte % 2.5 % (19-41); Mean Corpuscular Hgb 27.1 pg (27.0-32.0); Mean Corpuscular Volume 90.3 fL (81-99); Monocyte# 0.05 X10^3/uL; Monocyte% 0.6 % (0-10); NRBC Flagged by Analyzer 0 % (0-5); Neutrophil # 8.01 X10^3/uL (2.7-7.7); Neutrophil % 95.1 % (47-70); POSITIVE DIFFERENTIAL YES; Platelet Count 305 K/mm3 (150-450); RBC Distribution Width CV 16.8 % (11.6-14.6); RBC Distribution Width SD 54.8 fl (35.1-43.9); Red Blood Count 3.21 M/mm3 (4.2-5.4); White Blood Count 8.4 K/mm3 (4.4-11.0)
[2021-01-24 07:56] LABS: Bedside Glucose 339 mg/dL (70-110)
[2021-01-24 07:56] LABS: Differential Indicated SCAN CRITERIA MET
[2021-01-24 08:20] LABS: Hypochromasia 2+
[2021-01-24 08:30] LABS: Anion Gap 10 (5-15); BUN 40 mg/dL (7-18); Calcium,Total 8.5 mg/dL (8.5-10.1); Chloride 115 mmol/L (98-107); Creatinine, Serum 2.67 mg/dL (0.55-1.02); EST Glomerular Filtration Rate 19 mL/min (>60); Est Glom Filt Rate - Afr Amer 23 mL/min (>60); Estimated Creatinine Clearance 14.16 ml/min; Glucose 369 mg/dL (74-106); Potassium 4.2 mmol/L (3.5-5.1); Sodium Level 146 mmol/L (136-145)
[2021-01-24 08:40] LABS: Procalcitonin 0.18 ng/mL (0.00-0.09)
[2021-01-24] MEDS: Insulin Lispro 100 UNIT/ML INSULN.PEN SC ×4 (09:24→23:03)
[2021-01-24] MEDS: Docusate Sodium 100 MG Capsule PO (09:25)
[2021-01-24] MEDS: Pantoprazole Sodium 40 MG Tablet PO (09:25)
[2021-01-24] MEDS: Cefdinir 300 MG Capsule PO ×2 (09:25→23:03)
[2021-01-24] MEDS: Aspirin 81 MG TAB.CHEW PO (09:25)
[2021-01-24] MEDS: Pregabalin 50 MG Capsule PO ×3 (09:25→17:15)
[2021-01-24] MEDS: dexAMETHasone 2 MG TABLET 6 MG PO (09:26)
[2021-01-24] MEDS: amLODIPine 10 MG Tablet PO (09:27)
[2021-01-24] MEDS: Carvedilol 3.125 MG TABLET PO ×2 (09:27→23:03)
--- NOTE | 2021-01-24 09:37 | US_ITS ---
STUDY: RENAL ULTRASOUND - COMPLETE REASON FOR EXAM: Female, 75 years old. Acute kidney injury, positive for Covid 19. TECHNIQUE: Ultrasound evaluation of the kidneys was performed with real-time and static magaña-scale imaging. COMPARISON: None. FINDINGS: RIGHT KIDNEY: Normal location of the right kidney, which is normal in size. The right kidney measures 10.9 x 4.2 x 3.3 cm. There is a normal cortex of the right kidney. The renal cortex measures 1.5 cm. There is no right renal mass or cyst. There are no right renal calculi. There is mild hydronephrosis of the right kidney. DISTAL RIGHT URETER: There is non-visualization of the distal right ureter. There is no demonstrated right ureterovesical junction calculus. There is no demonstrated right ureteral jet. LEFT KIDNEY: Normal location of the left kidney, which is normal in size. The left kidney measures 10.1 x 3.3 x 3.5 cm. There is a normal cortex of the left kidney. The renal cortex measures 1.2 cm. There is no left renal mass or cyst. There are no left renal calculi. There is no left hydronephrosis. DISTAL LEFT URETER: There is non-visualization of the distal left ureter. There is no demonstrated left ureterovesical junction calculus. There is no demonstrated left ureteral jet. BLADDER: The distended urinary bladder has a volume of 256 ml. There is a normal wall thickness of the distended urinary bladder. There is no demonstrated mass within the urinary bladder. There are no demonstrated bladder calculi. US/Kidney and Bladder IMPRESSION: Mild right hydronephrosis. Electronically Signed: Rickey Grace MD at 12:24 EDT Tel , Service support ,
[2021-01-24] MEDS: APIXABAN 5 MG TABLET 10 MG PO ×2 (11:17→23:02)
[2021-01-24 11:48] LABS: Bacteria 0 SEEN /hpf (None Seen); Mucous, Urine 0 SEEN /hpf (<or=2+)
[2021-01-24 11:50] LABS: Color, Urine SEE COMMENT BELOW (Yellow); Glucose, Dipstick 250 mg/dl (Normal); Ketone-Dipstick Negative (Negative); Leukocyte Esterase-Dipstick 100 /ul (Negative); Nitrite-Dipstick Negative (Negative); Occult Blood-Urine 250 /ul (Negative); Protein-Dipstick 100 mg/dl (Negative); Urine Bilirubin Dipstick Negative (Negative); Urine Clarity Cloudy (Clear); Urine Urobilinogen Normal (Normal)
[2021-01-24 11:55] LABS: Red Blood Cells-Urine > 100 SEEN /hpf (0-5); White Blood Cells 0-5 SEEN /hpf (0-5)
[2021-01-24 11:56] LABS: Squamous Epithelial Cells - UA 0-5 SEEN /hpf (5-10)
[2021-01-24 12:40] LABS: Bedside Glucose 320 mg/dL (70-110)
--- NOTE | 2021-01-24 15:08 | PN.HOSP_ITS ---
Subjective Subjective Follow-up on acute respiratory failure/COVID-19 pneumonia/community-acquired pneumonia/recent PE Patient was seen and examined. She was discharged 3 days ago. She signed out AGAINST MEDICAL ADVICE within a few hours of [facility]. Patient stated that she needed to go home to take care of her dogs. She complains of progressively worsening shortness of breath. Her BNP remains elevated. Objective Data Objective Data Vital Signs: Vital Signs Temp Pulse Resp BP Pulse Ox 98.0 F 84 18 180/67 H 93 01/24/21 13:06 01/24/21 13:07 01/24/21 13:06 01/24/21 13:06 01/24/21 13:06 Oxygen Flow Rate (L/min) 2 Oxygen Delivery Method Nasal Cannula Weight: 64.5 kg Body Mass Index (BMI) 26.9 Intake & Output: Intake and Output for Last 24 Hours 01/22/21 01/23/21 01/24/21 23:59 23:59 23:59 Intake Total 650 / 650 Output Total 1500 / 1500 Balance -850 / -850 Lab / Micro Data Result Diagrams: 01/24/21 06:36 01/24/21 06:36 Labs: Laboratory Results - last 24 hr 01/23/21 22:55: WBC 11.4 H, RBC 3.26 L, Hgb 9.1 L, Hct 29.1 L, MCV 89.3, MCH 27.9, MCHC 31.3 L, RDW Std Deviation 54.1 H, RDW Coeff of Wade 16.5 H, Plt Count 321, MPV 10.9, Immature Gran % (Auto) 3.300 H, Neut % (Auto) 88.4 H, Lymph % (Auto) 3.8 L, [place] % (Auto) 4.3, Eos % (Auto) 0.0, Baso % (Auto) 0.2, Absolute Neuts (auto) 10.1 H, Absolute Lymphs (auto) 0.43 L, Nucleated RBC % 0, Differential Comment SCANNED 01/23/21 22:55: Sodium 147 H, Potassium 4.4, Chloride 118 H, Carbon Dioxide 22.0, Anion Gap 7, BUN 42 H, Creatinine 2.71 H, Estim Creat Clear Calc 13.95, Est GFR (MDRD) Af Amer 22 L, Est GFR (MDRD) Non-Af 18 L, BUN/Creatinine Ratio 15.5, Glucose 354 H, Calcium 8.8, Troponin I High Sens 40 01/23/21 22:55: B-Natriuretic Peptide 813.3 H 01/24/21 06:36: Procalcitonin 0.18 H 01/24/21 06:36: WBC 8.4, RBC 3.21 L, Hgb 8.7 L, Hct 29.0 L, MCV 90.3, MCH 27.1, MCHC 30.0 L, RDW Std Deviation 54.8 H, RDW Coeff of Wade 16.8 H, Plt Count 305, MPV 11.0, Immature Gran % (Auto) 1.700 H, Neut % (Auto) 95.1 H, Lymph % (Auto) 2.5 L, [place] % (Auto) 0.6, Eos % (Auto) 0.0, Baso % (Auto) 0.1, Absolute Neuts (auto) 8.0 H, Absolute Lymphs (auto) 0.21 L, Nucleated RBC % 0, Hypochromasia 2+ 01/24/21 06:36: Sodium 146 H, Potassium 4.2, Chloride 115 H, Carbon Dioxide 21.0, Anion Gap 10, BUN 40 H, Creatinine 2.67 H, Estim Creat Clear Calc 14.16, Est GFR (MDRD) Af Amer 23 L, Est GFR (MDRD) Non-Af 19 L, BUN/Creatinine Ratio 15.0, Glucose 369 H, Calcium 8.5 01/24/21 07:41: POC Glucose 339 H 01/24/21 11:14: POC Glucose 320 H 01/24/21 11:40: Urine Color SEE COMMENT BELOW, Urine Clarity Cloudy, Urine pH 6.0, Ur Specific [place] 1.010, Urine Protein 100 H, Urine Glucose (UA) 250 H, Urine Ketones Negative, Urine Occult Blood 250 H, Urine Nitrite Negative, Urine Bilirubin Negative, Urine Urobilinogen Normal, Ur Leukocyte Esterase 100 H, Urine RBC > 100 SEEN, Urine WBC 0-5 SEEN, Ur Squamous Epith Cells 0-5 SEEN, Urine Bacteria 0 SEEN, Urine Mucus 0 SEEN Micro: Microbiology 01/24/21 00:10 Nasal Secretion SARS-CoV-2 Antigen (Rapid) - Final SARS-CoV-2 (COVID 19) Radiography Diagnostic Testing: Radiology Impression Chest X-Ray 01/23/21 00:01 IMPRESSION: Increased interstitial prominence throughout suggesting worsening pneumonia and/or pulmonary edema Electronically Signed: Ja Simmons DO at 0:20 EDT Tel , Service support , Renal Ultrasound 01/24/21 09:37 IMPRESSION: Mild right hydronephrosis. Electronically Signed: Rickey Grace MD at 12:24 EDT Tel , Service support , Physical Exam Narrative Physical exam: General: Alert, Oriented x3, Cooperative, on 2 L of oxygen HEENT: Atraumatic Oral: Moist Mucosa Neck: Supple Lungs: Clear to auscultation Cardiovascular: HS I+II, regular, no murmurs Abdomen: Bowel Sounds Present, Soft, Non Tender Extremities: No edema Assessment & Plan Assessment/Plan (1) Acute hypoxemic respiratory failure: (2) COVID-19: (3) Hypernatremia: PLAN: 1. Acute hypoxemic respiratory failure secondary to acute exacerbation of heart failure with preserved CHF/community-acquired pneumonia/probable Covid Patient is currently on 2 L of oxygen Her admitting BNP of is elevated; 2D echo shows EF of 60% Patient Covid antigen and PCR was negative less than a week ago We will repeat PCR Continue on Lasix 40 mg IV twice daily Repeat chest x-ray in a.m. Strict I & Os, daily weight, fluid restriction, ANTHONY-wraps to legs 2. Hypertension, uncontrolled, continue amlodipine, carvedilol We will continue to monitor 3. Recent acute DVT of the left soleus vein, continue on Eliquis 4. Type II DM, complicated by nephropathy and neuropathy Patient was discharged only on insulin sliding scale as her blood sugars where erratic Will continue only on insulin sliding scale 5. CKD stage IV, underlining hypertensive nephrosclerosis and diabetic nephropathy complicated by postobstructive uropathy History of right and left ureteral stent placed on 12/22/20 Creatinine appears to be improved. Patient needs to follow-up with urology to have stents re-looked at and possibly removed Charges/Coding Visit Charges Inpatient E&M: 51186 Subs Hosp L3
--- NOTE | 2021-01-24 16:42 | CASEMGMT ---
JOVANA SALGUERO Readmission Note Previous Admission: 01/18/21-01/21/21 Diagnosis: pna, suspected covid, hypoxia DC Disposition: SNF Current Admission Diagnosis: acute hypoxemic resp failure Pt presented to ER from home. Patient was just dc'd to SNF and signed out AMA due to needing to take care of her dogs. Pt admitted with Acute hypoxemic respiratory failure secondary to acute exacerbation of heart failure with preserved CHF/community-acquired pneumonia. Pt is covid positive. Pt is currently on 2L O2. Therapy is ordered. JOVANA SALGUERO to follow for therapy needs and O2 needs. DC PLAN:TBD pending therapy.
[2021-01-24] MEDS: guaiFENesin 10 ML UDC (200MG/10ML) 20 ML PO ×2 (17:15→23:03)
[2021-01-24 17:41] LABS: Bedside Glucose 197 mg/dL (70-110)
[2021-01-24] MEDS: Atorvastatin Calcium 40 MG Tablet PO (23:03)
[2021-01-24] MEDS: Tamsulosin HCl 0.4 MG Capsule PO (23:03)
[2021-01-24] MEDS: hydrALAZINE 20 MG/ML Vial 5 MG IV (23:39)
[2021-01-25] VITALS (12 sets, daily range): BP systolic 147–154; BP diastolic 51–78; PULSE 70–87; RESP 18–20; TEMP 36.6–36.9; O2SAT 95–97
[2021-01-25 00:41] LABS: Bedside Glucose 229 mg/dL (70-110)
[2021-01-25] MEDS: guaiFENesin 10 ML UDC (200MG/10ML) 20 ML PO (03:27)
[2021-01-25] MEDS: hydrALAZINE 50 MG Tablet 100 MG PO ×3 (05:30→16:55)
--- NOTE | 2021-01-25 05:50 | RAD_ITS ---
HISTORY: sob, progressive EXAMINATION/TECHNIQUE: XR Chest 1 View AP view COMPARISON: AP chest x-ray from 01/23/21 FINDINGS: LINES/DEVICES: None. LUNGS: Slightly hyperexpanded lungs. Hazy bilateral perihilar opacities. Patchy left basilar opacities. No sizable pleural effusion. No pneumothorax detected. MEDIASTINUM AND CARDIOVASCULAR STRUCTURES: Heart size within normal limits for imaging technique. Atherosclerotic calcifications along the aorta. BONES AND SOFT TISSUES: Skeletal degenerative changes. RAD/Chest 1 View (Portable) IMPRESSION: Persistent hazy bilateral perihilar edema versus infiltrate, with superimposed left basilar atelectasis versus infiltrate. at 2026 Reported and signed by: Shawn Krause MD Electronically Signed: Shawn Krause MD at 20:26 EDT Tel , Service support ,
[2021-01-25 07:07] LABS: Absolute Neutrophil Count 9.8 X10^3/uL (2.0-7.7); Basophil# 0.01 X10^3/uL; Basophil% 0.1 % (0-1); Hemoglobin 9.1 g/dL (12.0-15.0); Lymphocyte % 6.2 % (19-41); Mean Corp Hgb Conc 30.3 g/dL (32-36); Monocyte# 0.59 X10^3/uL; Monocyte% 5.2 % (0-10); NRBC Flagged by Analyzer 0 % (0-5); Neutrophil # 9.79 X10^3/uL (2.7-7.7); Neutrophil % 86.8 % (47-70); Platelet Count 306 K/mm3 (150-450); RBC Distribution Width CV 16.6 % (11.6-14.6); RBC Distribution Width SD 53.5 fl (35.1-43.9); Red Blood Count 3.37 M/mm3 (4.2-5.4); White Blood Count 11.3 K/mm3 (4.4-11.0)
[2021-01-25 07:55] LABS: Albumin, Serum 2.4 g/dL (3.2-5.0); BUN 49 mg/dL (7-18); BUN/Creat Ratio 19.6 RATIO (10-20); Calcium,Total 7.9 mg/dL (8.5-10.1); Chloride 110 mmol/L (98-107); EST Glomerular Filtration Rate 20 mL/min (>60); Est Glom Filt Rate - Afr Amer 24 mL/min (>60); Estimated Creatinine Clearance 15.12 ml/min; Glucose 244 mg/dL (74-106); Phosphorus 4.2 mg/dL (2.5-4.9); Potassium 3.4 mmol/L (3.5-5.1); Sodium Level 145 mmol/L (136-145)
[2021-01-25 07:58] LABS: BNP,B-Type NATRIURETIC PEPTIDE 677.3 pg/mL (0-100)
[2021-01-25] MEDS: Insulin Lispro 100 UNIT/ML INSULN.PEN SC ×4 (10:08→20:19)
[2021-01-25] MEDS: Pregabalin 50 MG Capsule PO ×3 (10:10→16:55)
[2021-01-25] MEDS: Carvedilol 3.125 MG TABLET PO (10:12)
[2021-01-25] MEDS: amLODIPine 10 MG Tablet PO (10:12)
[2021-01-25] MEDS: Cefdinir 300 MG Capsule PO ×2 (10:12→20:18)
[2021-01-25] MEDS: Pantoprazole Sodium 40 MG Tablet PO (10:12)
[2021-01-25] MEDS: Docusate Sodium 100 MG Capsule PO (10:13)
[2021-01-25] MEDS: dexAMETHasone 4 MG/ML Vial 6 MG IV (10:13)
[2021-01-25] MEDS: Aspirin 81 MG TAB.CHEW PO (10:13)
[2021-01-25] MEDS: APIXABAN 5 MG TABLET 10 MG PO ×2 (10:14→20:18)
[2021-01-25] MEDS: Furosemide 40 MG/4 ML Vial IV ×2 (10:14→20:10)
[2021-01-25] MEDS: 0.9% Saline Lock 10 ML Syringe IV ×2 (10:16→20:12)
[2021-01-25] MEDS: Potassium Chloride Oral Tablet 20 MEQ 60 MEQ PO (10:28)
[2021-01-25 12:20] LABS: Bedside Glucose 221 mg/dL (70-110)
--- NOTE | 2021-01-25 15:05 | PN.HOSP_ITS ---
Subjective Subjective Patient was seen and examined. Denied any new complaints. She is on 2 L of oxygen. Denies any new events. Objective Data Objective Data Vital Signs: Vital Signs Temp Pulse Resp BP Pulse Ox 98.1 F 80 20 H 150/63 H 95 01/25/21 10:05 01/25/21 13:28 01/25/21 11:00 01/25/21 10:05 01/25/21 14:31 Oxygen Flow Rate (L/min) 2 Oxygen Delivery Method Nasal Cannula Weight: 64.5 kg Body Mass Index (BMI) 26.9 Intake & Output: Intake and Output for Last 24 Hours 01/23/21 01/24/21 01/25/21 23:59 23:59 23:59 Intake Total 950 / 1250 540 / 540 Output Total 1900 / 3050 1750 / 1750 Balance -950 / -1800 -1210 / -1210 Lab / Micro Data Result Diagrams: 01/25/21 06:40 01/25/21 06:40 Labs: Laboratory Results - last 24 hr 01/24/21 11:44: COVID-19 (GORDON) Detected 01/24/21 16:45: POC Glucose 197 H 01/24/21 22:58: POC Glucose 229 H 01/25/21 06:40: WBC 11.3 H, RBC 3.37 L, Hgb 9.1 L, Hct 30.0 L, MCV 89.0, MCH 27.0, MCHC 30.3 L, RDW Std Deviation 53.5 H, RDW Coeff of Wade 16.6 H, Plt Count 306, MPV 11.0, Immature Gran % (Auto) 1.700 H, Neut % (Auto) 86.8 H, Lymph % (Auto) 6.2 L, [place] % (Auto) 5.2, Eos % (Auto) 0.0, Baso % (Auto) 0.1, Absolute Neuts (auto) 9.8 H, Absolute Lymphs (auto) 0.70 L, Nucleated RBC % 0 01/25/21 06:40: Sodium 145, Potassium 3.4 L, Chloride 110 H, Carbon Dioxide 24.0, BUN 49 H, Creatinine 2.50 H, Estim Creat Clear Calc 15.12, Est GFR (MDRD) Af Amer 24 L, Est GFR (MDRD) Non-Af 20 L, BUN/Creatinine Ratio 19.6, Glucose 244 H, Calcium 7.9 L, Phosphorus 4.2, Albumin 2.4 L 01/25/21 06:40: B-Natriuretic Peptide 677.3 H 01/25/21 12:17: POC Glucose 221 H Micro: Microbiology 01/24/21 00:10 Nasal Secretion SARS-CoV-2 Antigen (Rapid) - Final SARS-CoV-2 (COVID 19) Physical Exam Narrative Physical exam: General: Alert, Oriented x3, Cooperative, on 2 L of oxygen HEENT: Atraumatic Oral: Moist Mucosa Neck: Supple Lungs: Clear to auscultation Cardiovascular: HS I+II, regular, no murmurs Abdomen: Bowel Sounds Present, Soft, Non Tender Extremities: No edema Assessment & Plan Assessment/Plan (1) Acute hypoxemic respiratory failure: (2) COVID-19: (3) Hypernatremia: PLAN: 1. Acute hypoxemic respiratory failure secondary to acute exacerbation of heart failure with preserved CHF/community-acquired pne umonia/Acute Covid-19 pneumonia. On 2 L of oxygen Patient's rapid antigen test as well as COVID-19 PCR were negative less than a week ago, in her recent admission [facility]. Patient signed out AMA a few hours after she got to the long term Her admitting BNP is elevated; 2D echo shows EF of 60% Continue on Lasix 40 mg IV twice daily Strict I & Os, daily weight, fluid restriction, ANTHONY-wraps to legs 2. Acute COVID-19 pneumonia with hypoxia Continue on Decadron, not a candidate for remdesivir given how unclear she has had symptoms and also her renal function 3. Hypertension, uncontrolled, continue amlodipine Increase carvedilol to 6.25 mg twice daily 3. Recent acute DVT of the left soleus vein, continue on Eliquis 4. Type II DM, complicated by nephropathy and neuropathy Patient was discharged only on insulin sliding scale as her blood sugars where erratic Will continue only on insulin sliding scale Will consider resumption on her previous Lantus and premeal insulin if sugars continue to increase 5. CKD stage IV, underlining hypertensive nephrosclerosis and diabetic nephropathy complicated by postobstructive uropathy History of right and left ureteral stent placed on 12/22/20 Creatinine appears to be improved. Patient needs to follow-up with urology to have stents re-looked at and possibly removed Charges/Coding Visit Charges Inpatient E&M: 35998 Subs Hosp L2
[2021-01-25 17:35] LABS: Bedside Glucose 284 mg/dL (70-110)
[2021-01-25] MEDS: Tamsulosin HCl 0.4 MG Capsule PO (20:18)
[2021-01-25] MEDS: Carvedilol 6.25 MG Tablet PO (20:18)
[2021-01-25] MEDS: Atorvastatin Calcium 40 MG Tablet PO (20:18)
[2021-01-25 21:20] LABS: Bedside Glucose 354 mg/dL (70-110)
[2021-01-26] VITALS (11 sets, daily range): BP systolic 118–152; BP diastolic 39–51; PULSE 70–79; RESP 18–20; TEMP 36.6–37; O2SAT 93–97
[2021-01-26] MEDS: hydrALAZINE 50 MG Tablet 100 MG PO ×2 (05:39→22:07)
[2021-01-26] MEDS: guaiFENesin 10 ML UDC (200MG/10ML) 20 ML PO (05:39)
[2021-01-26 06:07] LABS: Absolute Lymphocyte Count 0.83 X10^3/uL (0.83-4.51); Absolute Neutrophil Count 8.8 X10^3/uL (2.0-7.7); Hematocrit 31.9 % (37-47); Hemoglobin 9.8 g/dL (12.0-15.0); Lymphocyte # 0.83 X10^3/ul (0.83-4.51); Lymphocyte % 8.1 % (19-41); Mean Corp Hgb Conc 30.7 g/dL (32-36); Mean Corpuscular Hgb 27.3 pg (27.0-32.0); Mean Corpuscular Volume 88.9 fL (81-99); Monocyte# 0.51 X10^3/uL; NRBC Flagged by Analyzer 0 % (0-5); Neutrophil # 8.76 X10^3/uL (2.7-7.7); Neutrophil % 85.8 % (47-70); Platelet Count 325 K/mm3 (150-450); RBC Distribution Width CV 15.7 % (11.6-14.6); RBC Distribution Width SD 51.3 fl (35.1-43.9); Red Blood Count 3.59 M/mm3 (4.2-5.4); White Blood Count 10.2 K/mm3 (4.4-11.0)
[2021-01-26 06:47] LABS: Albumin, Serum 2.2 g/dL (3.2-5.0); BUN 63 mg/dL (7-18); BUN/Creat Ratio 22.9 RATIO (10-20); Calcium,Total 7.9 mg/dL (8.5-10.1); Chloride 102 mmol/L (98-107); Creatinine, Serum 2.75 mg/dL (0.55-1.02); EST Glomerular Filtration Rate 18 mL/min (>60); Est Glom Filt Rate - Afr Amer 22 mL/min (>60); Estimated Creatinine Clearance 13.75 ml/min; Glucose 363 mg/dL (74-106); Phosphorus 4.9 mg/dL (2.5-4.9); Potassium 3.5 mmol/L (3.5-5.1); Sodium Level 140 mmol/L (136-145)
[2021-01-26] MEDS: 0.9% Saline Lock 10 ML Syringe IV ×3 (08:23→22:03)
[2021-01-26] MEDS: Aspirin 81 MG TAB.CHEW PO (08:24)
[2021-01-26] MEDS: Pregabalin 50 MG Capsule PO ×3 (08:24→17:15)
[2021-01-26] MEDS: Insulin Lispro 100 UNIT/ML INSULN.PEN SC ×4 (08:24→23:11)
[2021-01-26] MEDS: amLODIPine 10 MG Tablet PO (08:24)
[2021-01-26] MEDS: Furosemide 40 MG/4 ML Vial IV ×2 (08:24→17:15)
[2021-01-26] MEDS: Pantoprazole Sodium 40 MG Tablet PO (08:24)
[2021-01-26] MEDS: Cefdinir 300 MG Capsule PO ×2 (08:24→22:07)
[2021-01-26] MEDS: Carvedilol 6.25 MG Tablet PO ×2 (08:25→22:07)
[2021-01-26] MEDS: APIXABAN 5 MG TABLET 10 MG PO ×2 (08:25→22:07)
[2021-01-26] MEDS: dexAMETHasone 4 MG/ML Vial 6 MG IV (08:25)
[2021-01-26 09:25] LABS: Bedside Glucose 291 mg/dL (70-110)
[2021-01-26 10:55] LABS: BNP,B-Type NATRIURETIC PEPTIDE 321.5 pg/mL (0-100)
[2021-01-26 11:46] LABS: Bedside Glucose 336 mg/dL (70-110)
--- NOTE | 2021-01-26 12:45 | CASEMGMT ---
Addendum entered by Makayla Velazquez 01/26/21 13:14: TC to [facility], they are not accepting COVID patients currently. TC to Brian, faxed referral to be reviewed. Original Note: JOVANA CM in to pt room. Therapy just left room and verbally stated it is recommended for pt to go to SNF. Discussed with pt this and she states she is not going back to the snf, that is where she got COVID. She states she is going to go home, clean her apartment then her case therapist is going to find a new apartment and she will move in with her dog. Made patient aware that this is not the best option for success. Pt states she will not return to SNF. Patient was provided a list of [facility] providers including quality and resource use data and consistent with the patient?s preferred geographic region, medical needs, and insurance network. The patient?s preferred provider is [facility] or [facility].
--- NOTE | 2021-01-26 13:37 | NURSING ---
According to [facility] therapy is recommending additional therapy prior to DC. This RN entered room and began asking patient how she felt about therapy recommending additional therapy. She immediately states she is not going to a halfway. She states she can take care of herself. She states she has a friend named Ed that comes in to help and fix her food when she needs it. This RN asked for permission to call Ed to see what he thinks about all of this and patient agreed. Ed's phone number is [phone]. This RN called Ed and reported the obove info to him and he states he is not going to be able to help her since she has COVID and also prior to patient having COVID she was not moving well and was not able to take more than one step on her own and he just can't do that anymore. This RN encouraged Ed to speak with patient about not being able to help her if/when she gets discharged. Phone call was transferred into patient's room so they could talk. JOVANA Benavides CM and SARAH Jimenez made aware of same.
--- NOTE | 2021-01-26 15:43 | PN.HOSP_ITS ---
Subjective Subjective Patient seen and examined. She has no active complaints and feels well. Review of systems otherwise negative. Patient says she wants to go home instead of going to a SNF. Review of systems is otherwise negative. Objective Data Objective Data Vital Signs: Vital Signs Temp Pulse Resp BP Pulse Ox 98 F 74 20 H 118/46 L 93 01/26/21 12:48 01/26/21 12:48 01/26/21 12:48 01/26/21 12:48 01/26/21 14:00 Oxygen Flow Rate (L/min) 1 Oxygen Delivery Method Room Air Weight: 142 lb 3.17 oz Body Mass Index (BMI) 26.9 Intake & Output: Intake and Output for Last 24 Hours 01/24/21 01/25/21 01/26/21 23:59 23:59 23:59 Intake Total 950 / 1250 1140 / 1190 750 / 750 Output Total 1900 / 3050 2800 / 3300 1300 / 1300 Balance -950 / -1800 -1660 / -2110 -550 / -550 Lab / Micro Data Result Diagrams: 01/26/21 05:16 01/26/21 05:16 Labs: Laboratory Results - last 24 hr 01/25/21 16:52: POC Glucose 284 H 01/25/21 20:04: POC Glucose 354 H 01/26/21 05:16: WBC 10.2, RBC 3.59 L, Hgb 9.8 L, Hct 31.9 L, MCV 88.9, MCH 27.3, MCHC 30.7 L, RDW Std Deviation 51.3 H, RDW Coeff of Wade 15.7 H, Plt Count 325, MPV 11.0, Immature Gran % (Auto) 1.100 H, Neut % (Auto) 85.8 H, Lymph % (Auto) 8.1 L, [place] % (Auto) 5.0, Eos % (Auto) 0.0, Baso % (Auto) 0.0, Absolute Neuts (auto) 8.8 H, Absolute Lymphs (auto) 0.83, Nucleated RBC % 0 01/26/21 05:16: Sodium 140, Potassium 3.5, Chloride 102, Carbon Dioxide 27.0, BUN 63 H, Creatinine 2.75 H, Estim Creat Clear Calc 13.75, Est GFR (MDRD) Af Amer 22 L, Est GFR (MDRD) Non-Af 18 L, BUN/Creatinine Ratio 22.9 H, Glucose 363 H, Calcium 7.9 L, Phosphorus 4.9, Albumin 2.2 L 01/26/21 05:16: B-Natriuretic Peptide 321.5 H 01/26/21 08:22: POC Glucose 291 H 01/26/21 11:21: POC Glucose 336 H Micro: Microbiology 01/24/21 00:10 Nasal Secretion SARS-CoV-2 Antigen (Rapid) - Final SARS-CoV-2 (COVID 19) Radiography Diagnostic Testing: Radiology Impression Chest X-Ray 01/25/21 05:50 IMPRESSION: Persistent hazy bilateral perihilar edema versus infiltrate, with superimposed left basilar atelectasis versus infiltrate. at 2026 Reported and signed by: Shawn Krause MD Electronically Signed: Shawn Krause MD at 20:26 EDT Tel , Service support , Physical Exam Const alert and oriented x3 Constitutional Narrative: frail Exam Limitations: no limitations HEENT head/scalp atraumatic Head and Scalp: normocephalic Mouth: dry mucous membranes Eyes PERRL and EOMs intact bilaterally Neck no lymphadenopathy Resp Resp Narrative: diminished breath sounds bibasally, no wheezes or crackles. On room air. Cardio regular rate, regular rhythm, S1 normal heart sound, S2 normal heart sound and no murmurs GI normal to inspection, nondistended, normoactive bowel sounds, soft to palpation, non-tender and non-distended Extremity normal to inspection, full ROM and no clubbing, cyanosis or edema Peripheral Pulses: Yes pulses 2+ throughout Skin no rashes or lesions noted Neuro oriented x3, CN's II-XII intact bilaterally and moves all extremities Sensorium / Orientation: awake and alert Psych affect normal Assessment & Plan Assessment/Plan (1) Acute hypoxemic respiratory failure: (2) COVID-19: PLAN: #Acute hypoxic respiratory failure * due to acute exacerbation of HFpEF adn acute covid 19 pneumonia * on 2L of oxygen * Has known EF of 60%. On IV Lasix 40 mg twice daily * Monitor intake and output. Fluid restriction 1500 cc daily. * On Decadron for COVID-19 pneumonia. * #COVID-19 pneumonia: As above. Not a candidate for remdesivir as duration of symptoms is not clear #Hypertensive * carvedilol increased to 6.25 mg twice daily on account of poorly controlled hypertension. * IV hydralazine as needed. #Recent DVT of the left soleus vein: On Eliquis #Type 2 diabetes mellitus with neuropathy and nephropathy * On insulin sliding scale. Patient appears to be a brittle diabetic as her blood sugars are erratic so she is not on a long-acting insulin. * Monitor blood sugars for now and if a trend upwards, will put her on long- acting insulin. * #CKD IV * Due to hypertensive nephrosclerosis and diabetic nephropathy as well as postobstructive uropathy * She does have a history of bilateral ureteral stents placed in December 2020. * Creatinine today is 2.75 and she has been between 2.5-3.7 recently. * Follow-up with nephrology and urology on outpatient basis. * DVT prophylaxis: not indicated as she is on eliquis. Disposition: patient is very frail, and I dont think she will be able to care for herself at home. Patient however insistent on going home and states she does not want to go back to the [facility]. Of note she signed out from her [facility] AGAINST MEDICAL ADVICE recently. Case management on board. Charges/Coding Visit Charges Inpatient E&M: 81616 Subs Hosp L2
--- NOTE | 2021-01-26 16:11 | NURSING ---
Spoke with patient regarding her conversation with Ed and she states that Ed says he will come and help her in her home. SW and CM made aware of same.
[2021-01-26] MEDS: Tamsulosin HCl 0.4 MG Capsule PO (22:07)
[2021-01-26] MEDS: Atorvastatin Calcium 40 MG Tablet PO (22:07)
[2021-01-26 22:45] LABS: Bedside Glucose 426 mg/dL (70-110)
[2021-01-26 22:45] LABS: Bedside Glucose 452 mg/dL (70-110)
[2021-01-26 22:56] LABS: Glucose 488 mg/dL (74-106)
[2021-01-27] VITALS (9 sets, daily range): BP systolic 127–149; BP diastolic 36–57; PULSE 65–75; RESP 16–18; TEMP 36.6–37; O2SAT 91–94
--- NOTE | 2021-01-27 01:14 | PCS.PANDOC ---
PANDEMIC DOCUMENTATION INITIATED: Date: 01/24/2021 Time: 190
[2021-01-27] MEDS: hydrALAZINE 50 MG Tablet 100 MG PO (05:12)
[2021-01-27 06:27] LABS: Absolute Lymphocyte Count 0.81 X10^3/uL (0.83-4.51); Absolute Neutrophil Count 7.1 X10^3/uL (2.0-7.7); Hematocrit 30.8 % (37-47); Hemoglobin 9.7 g/dL (12.0-15.0); Lymphocyte # 0.81 X10^3/ul (0.83-4.51); Lymphocyte % 9.4 % (19-41); Mean Corp Hgb Conc 31.5 g/dL (32-36); Mean Corpuscular Hgb 27.1 pg (27.0-32.0); Monocyte# 0.63 X10^3/uL; Monocyte% 7.3 % (0-10); NRBC Flagged by Analyzer 0 % (0-5); Neutrophil # 7.11 X10^3/uL (2.7-7.7); Neutrophil % 82.6 % (47-70); Platelet Count 295 K/mm3 (150-450); RBC Distribution Width CV 15.2 % (11.6-14.6); RBC Distribution Width SD 48.4 fl (35.1-43.9); Red Blood Count 3.58 M/mm3 (4.2-5.4); White Blood Count 8.6 K/mm3 (4.4-11.0)
[2021-01-27 06:58] LABS: Anion Gap 11 (5-15); BUN 83 mg/dL (7-18); BUN/Creat Ratio 29.4 RATIO (10-20); Calcium,Total 7.7 mg/dL (8.5-10.1); Chloride 101 mmol/L (98-107); Creatinine, Serum 2.82 mg/dL (0.55-1.02); EST Glomerular Filtration Rate 17 mL/min (>60); Est Glom Filt Rate - Afr Amer 21 mL/min (>60); Estimated Creatinine Clearance 13.41 ml/min; Glucose 307 mg/dL (74-106); Potassium 3.2 mmol/L (3.5-5.1); Sodium Level 138 mmol/L (136-145)
[2021-01-27] MEDS: Pregabalin 50 MG Capsule PO ×2 (08:07→12:54)
[2021-01-27] MEDS: 0.9% Saline Lock 10 ML Syringe IV (08:08)
[2021-01-27] MEDS: Furosemide 40 MG/4 ML Vial IV (08:08)
[2021-01-27] MEDS: dexAMETHasone 4 MG/ML Vial 6 MG IV (08:08)
[2021-01-27] MEDS: APIXABAN 5 MG TABLET 10 MG PO (08:08)
[2021-01-27] MEDS: Carvedilol 6.25 MG Tablet PO (08:09)
[2021-01-27] MEDS: Aspirin 81 MG TAB.CHEW PO (08:09)
[2021-01-27] MEDS: Cefdinir 300 MG Capsule PO (08:09)
[2021-01-27] MEDS: Insulin Lispro 100 UNIT/ML INSULN.PEN SC ×2 (08:09→12:54)
[2021-01-27] MEDS: amLODIPine 10 MG Tablet PO (08:09)
[2021-01-27] MEDS: Pantoprazole Sodium 40 MG Tablet PO (08:09)
[2021-01-27] MEDS: Potassium Chloride Oral Tablet 20 MEQ 40 MEQ PO (08:22)
[2021-01-27 09:45] LABS: Bedside Glucose 325 mg/dL (70-110)
--- NOTE | 2021-01-27 10:08 | CASEMGMT ---
TC to [facility], left message to verify if referral is accepted. 1109 TC to [facility], left message to verify if referral is accepted. 1119 Received tc back from Brenda, she states [facility] has further questions. [phone]. 1137 TC to Dinah. She states they are able to accept pt. Faxed dc instructions and order at this time.
--- NOTE | 2021-01-27 10:46 | PCM.DC.SUM ---
Providers Date of Admission: 01/24/21 Primary Care Physician: Dr. Shawn Almeida MD Reason For Visit: ACUTE HYPOXEMIC RESP FAILURE Diagnosis Discharge Diagnosis (1) Acute hypoxemic respiratory failure: Status: Acute Code(s): J96.01 - Acute respiratory failure with hypoxia (2) COVID-19: Status: Acute Code(s): U07.1 - COVID-19 Medications at Discharge Home Medications amlodipine 10 mg PO DAILY 06/05/18 atorvastatin 40 mg PO DAILY 06/05/18 lansoprazole 30 mg PO DAILY 11/03/20 pregabalin 50 mg PO TID #0 cap 11/07/20 ondansetron 4 mg PO TID PRN 3 Days #10 tab 12/02/20 docusate sodium [DOK] 100 mg PO DAILY 12/17/20 hydralazine 100 mg PO TID 12/17/20 tamsulosin 0.4 mg PO DAILY@1730 #14 cap 01/16/21 Eliquis 10 mg PO BID #0 tab 01/21/21 acetaminophen [Tylenol] 650 mg PO Q4H PRN PRN #0 tab 01/21/21 aspirin 81 mg PO DAILY #0 tab 01/21/21 carvedilol 3.125 mg PO BID #0 tab 01/21/21 guaifenesin 20 ml PO Q4H PRN PRN #0 ml 01/21/21 insulin lispro [Humalog KwikPen Insulin] See Protocol SUBCUT ACHS #0 ml 01/21/21 dexamethasone [Decadron] 6 mg PO DAILY #6 tab 01/27/21 insulin glargine [Lantus Solostar U-100 Insulin] 10 unit SUBCUT QPM #15 ml 01/27/21 Hospital Course Operations None Procedures None Summary of Care Provided Minutes Spent on Discharge: 40 Hospital Course: Patient is a 75-year-old female with an extensive past medical history as outlined was admitted through the ED on 01/24/2021 with a complaint of persistent shortness of breath and a productive cough as well as fatigue and insomnia and muscle aches. She denied any fever but admits to chills. Per paramedics, she was saturating at 85% on room air. Patient was unvaccinated against COVID-19 and had recently been in the hospital and discharged on 01/21/2021 during which time a Covid test was negative. She was subsequently discharged to a SNF where she signed out AGAINST MEDICAL ADVICE. Covid test done during this admission was positive. She was admitted and managed for acute hypoxic respiratory failure due to COVID-19 pneumonia p on account of her oxygen levels been down to 85% on room air. She was started on Solu-Medrol. She was not given remdesivir due to her chronic kidney disease. Patient notes of breath gradually improved and she was weaned off of her oxygen onto room air. BNP was also elevated at 813.3 and she was diuresed with Lasix. Patient was reviewed by [facility] therapy and skilled as needing SNF but she absolutely refused to go to SNF despite counseling by physician and case management as well as nurses. She felt she could take care of herself better at home and felt that she had gotten the Covid in a [facility] facility also did not want to go back there. Patient insisted on being discharged home. She was weaned off of oxygen on room air and did well. She was therefore discharged home on 01/27/2021 with a prescription for p.o. Decadron 6 mg daily to complete a 10-day course. She is to follow-up with her primary care doctor and is to remain in self isolation till February 12, 2021, to complete a 20 day course of self isolation since she was diagnosed. She is also to go with home health care. Of note, in light of her poorly controlled blood sugars, patient was started on 10 units of Lantus daily and is to continue with insulin sliding scale at home. Patient seen and examined prior to discharge. She had no active complaints. She was on room air. Review of systems was otherwise negative. Labs and vitals reviewed. Home meds reviewed and reconciled. Physical Exam Const alert, oriented x3 and no apparent distress Constitutional Narrative: frail, looks older than stated age General Appearance: cooperative Exam Limitations: no limitations HEENT normocephalic and head/scalp atraumatic Eyes PERRL and EOMs intact bilaterally Neck no lymphadenopathy Resp Resp Narrative: diminished breath sounds bibasally, no wheezes or crackles. On room air. Cardio regular rate, regular rhythm, S1 normal heart sound, S2 normal heart sound and no murmurs GI normal to inspection, nondistended, normoactive bowel sounds, soft to palpation, non-tender and non-distended Extremity normal to inspection, full ROM and no clubbing, cyanosis or edema Skin no rashes or lesions noted Neuro oriented x3, CN's II-XII intact bilaterally and moves all extremities Sensorium / Orientation: awake and alert Psych affect normal Weight / BMI Weight Weight: 142 lb 3.17 oz Body Mass Index (BMI) 26.9 ABG / Lab / Microbiology Data Result Diagrams: 01/27/21 06:10 01/27/21 06:10 Laboratory: Laboratory Results - last 24 hr 01/26/21 05:16: B-Natriuretic Peptide 321.5 H 01/26/21 11:21: POC Glucose 336 H 01/26/21 17:03: POC Glucose 426 H 01/26/21 22:00: POC Glucose 452 H* 01/26/21 22:25: Glucose 488 H* 01/27/21 06:10: WBC 8.6, RBC 3.58 L, Hgb 9.7 L, Hct 30.8 L, MCV 86.0, MCH 27.1, MCHC 31.5 L, RDW Std Deviation 48.4 H, RDW Coeff of Wade 15.2 H, Plt Count 295, MPV 11.0, Immature Gran % (Auto) 0.700, Neut % (Auto) 82.6 H, Lymph % (Auto) 9.4 L, Nelson % (Auto) 7.3, Eos % (Auto) 0.0, Baso % (Auto) 0.0, Absolute Neuts (auto) 7.1, Absolute Lymphs (auto) 0.81 L, Nucleated RBC % 0 01/27/21 06:10: Sodium 138, Potassium 3.2 L, Chloride 101, Carbon Dioxide 26.0, Anion Gap 11, BUN 83 H, Creatinine 2.82 H, Estim Creat Clear Calc 13.41, Est GFR (MDRD) Af Amer 21 L, Est GFR (MDRD) Non-Af 17 L, BUN/Creatinine Ratio 29.4 H, Glucose 307 H, Calcium 7.7 L 01/27/21 07:58: POC Glucose 325 H Microbiology: Microbiology 01/24/21 00:10 Nasal Secretion SARS-CoV-2 Antigen (Rapid) - Final SARS-CoV-2 (COVID 19) D/C Instructions Discharge Diet: Low fat / Low cholesterol Discharge Activity: Return to Normal Activity Weight Bearing Status: Weight bearing as tolerated Call your doctor if you observe: Fever of 101 or Higher, Shortness of breath, Dizziness, Swelling in the ankles, Chest pain, Increased palpitations (irregular heartbeat) and Calf discomfort Meaningful Use Info Meaningful Use Diagnoses (Choose all that apply): None applicable Discharge Plan Admission Admit Date/Time: 01/24/21 01:05 Primary Reason for Your Visit: acute hypoxic respiratory failure due to COVID 19 pneumonia Attending Provider: Zully Redmond Primary Care Provider: Shawn Almeida Instructions Patient Instructions: Coronavirus Disease 2019 (COVID-19): Caring for Yourself or Others, COVID-19: Lying in a Prone Position (Proning), Preventing the Spread of Infection Understanding Isolation Procedures, Disinfecting Your Home of COVID-19, How COVID-19 Spreads Additional Instructions / Restrictions: to remain in self isolation till February 12, 2021. Discharge Orders/Prescriptions Prescriptions: New dexamethasone [Decadron] 6 mg tablet 6 mg PO DAILY Qty: 6 RF: 0 Lantus Solostar U-100 Insulin 100 unit/mL (3 mL) insulin pen 10 unit subcut QPM Qty: 15 RF: 1 Continued atorvastatin 40 MG tablet 40 mg PO DAILY RF: 0 amlodipine 10 MG tablet 10 mg PO DAILY RF: 0 lansoprazole 30 mg Capsule,Delayed Release(Dr/Ec) 30 mg PO DAILY RF: 0 pregabalin 50 MG capsule 50 mg PO TID Qty: 0 RF: 0 hydralazine 50 mg tablet 100 mg PO TID RF: 0 docusate sodium [DOK] 100 MG capsule 100 mg PO DAILY RF: 0 ondansetron 4 mg tablet,disintegrating 4 mg PO TID PRN (Reason: nausea and vomiting) 3 Days Qty: 10 RF: 0 tamsulosin 0.4 mg Capsule 0.4 mg PO DAILY@1730 Qty: 14 RF: 0 acetaminophen [Tylenol] 325 mg Tablet 650 mg PO Q4H PRN PRN (Reason: Fever, pain 1-01/18) Qty: 0 RF: 0 Eliquis 5 mg Tablet 10 mg PO BID Qty: 0 RF: 0 guaifenesin 100 mg/5 mL Liquid 20 ml PO Q4H PRN PRN (Reason: COUGH) Qty: 0 RF: 0 carvedilol 3.125 mg Tablet 3.125 mg PO BID Qty: 0 RF: 0 aspirin 81 mg Tablet,Chewable 81 mg PO DAILY Qty: 0 RF: 0 insulin lispro [Humalog KwikPen Insulin] 100 unit/mL Insulin Pen See Protocol unit subcut ACHS Qty: 0 RF: 0 Referrals / Follow Up: Shawn Almeida MD [Primary Care Provider] - Within 2 Weeks Disposition Disposition (needs filled in before D/C Order can be placed): Home Health Service Charges/Coding Visit Charges Inpatient E&M: 28584 Disch Hosp
--- NOTE | 2021-01-27 11:10 | CASEMGMT ---
Addendum entered by Barbara Friedman 01/27/21 12:06: SARAH received call from Ranjit with [facility] stating [facility] has been involved in pt's case and has utilized all their resources. Ranjit states she has spoken to pt's daughter Brandi about Assisted Living and recommends [facility] assisting pt with getting pt to Assisted Living. Ranjit asked about pt getting evaluated for competency. SARAH informed Ranjit that pt would need to go through her PCP Dr. Almeida to get competency evaluate. SARAH placed a call to pt's CM Isela Desai. Her voicemail states she is out of the office this week. SW did leave message updating her on how to get competency evaluation for pt. SW then transferred to covering CM Paco Dunne. SW updated Paco on pt's discharge home today. Paco states pt only has Emergency response button. SW in to speak with pt. SW familiar with pt from last week. SW introduced self and role at [facility]. Pt states she is going home. SARAH spoke with pt about recommendation of SNF. Pt states she is not going to a halfway. SW asked pt what happened at [place] that she left there. Pt states she had wet herself and they didn't come to get her. SW asked pt how long it took for staff to come to her room and pt states she didn't know, she states she left before they came in to her room. SW asked pt if she would consider a different halfway and pt states no. SW asked pt if she had family or friends to assist her at home. Pt states that she has a daughter (Brandi) and son (Tres) and grandchildren that are able to assist. SW asked pt if they would assist since she is COVID+. Pt states well my son is coming to pick me up today. SW asked pt if this worker could call her daughter Brandi and pt gave this worker permissoin to call her daughter. SARAH placed a call to pt's daughter Brandi and introduced self and role at [facility]. SARAH spoke with Brandi about how recommendation is SNF again but pt is refusing. SARAH asked Brandi about Assisted Living for pt. rBandi states well that is where she is going to have to go since she is refusing SNF. SARAH informed Brandi that [facility] can assist with getting pt to assisted living. SARAH spoke with Brandi about taking pt to PCP office, Dr. Almeida, to get competency evaluation for pt if she and Tres feel pt is not making safe decisions. Brandi states understanding. SARAH faxed discharge paperwork to [facility]. Original Note: Social Work Note Recommendation is still SNF for pt, pt adamantly refusing SNF placement. Pt to discharge home today. RN NOEMY working on [facility]. SARAH placed a call to [place] with [facility] and provided [facility] reports due to recommendation of SNF, pt refusing SNF, pt still requiring assistance with ADLs and pt has limited support at home. Barbara Friedman LABELING ASSOCIATE, MECHANICAL FITTER
[2021-01-27 13:16] LABS: Bedside Glucose 385 mg/dL (70-110)
--- NOTE | 2021-01-27 13:59 | PHA.DC.MR ---
Pharmacy Service has performed discharge medication reconciliation for this patient. The patient's discharge medication list was reviewed for discrepancies and discrepancies were resolved. Home Medications amlodipine 10 mg PO DAILY 06/05/18 atorvastatin 40 mg PO DAILY 06/05/18 lansoprazole 30 mg PO DAILY 11/03/20 pregabalin 50 mg PO TID #0 cap 11/07/20 ondansetron 4 mg PO TID PRN 3 Days #10 tab 12/02/20 docusate sodium [DOK] 100 mg PO DAILY 12/17/20 hydralazine 100 mg PO TID 12/17/20 tamsulosin 0.4 mg PO DAILY@1730 #14 cap 01/16/21 Eliquis 10 mg PO BID #0 tab 01/21/21 acetaminophen [Tylenol] 650 mg PO Q4H PRN PRN #0 tab 01/21/21 aspirin 81 mg PO DAILY #0 tab 01/21/21 carvedilol 3.125 mg PO BID #0 tab 01/21/21 guaifenesin 20 ml PO Q4H PRN PRN #0 ml 01/21/21 insulin lispro [Humalog KwikPen Insulin] See Protocol SUBCUT ACHS #0 ml 01/21/21 dexamethasone [Decadron] 6 mg PO DAILY #6 tab 01/27/21 insulin glargine [Lantus Solostar U-100 Insulin] 10 unit SUBCUT QPM #15 ml 01/27/21
--- NOTE | 2021-01-28 15:56 | CASEMGMT ---
JOVANA SALGUERO Discharge Follow Up Phone Call: ANKIT: Alaina Strata:4 Call Date: 01/28/21 Discharge Date: 01/27/21 Time of Call:1553 Duration:3 min Admitting Dx: acute respiratory failure JOVANA SALGUERO completed follow up phone call after recent hospitalization. Pt states she is doing well at home. She states she is walking with her walker, she took her medications today. She states she was able to get her rx picked up by her son. Pt has not heard from the [facility] agency yet. She is aware of her isolation guidelines. Pt has a follow up appt on 02/12/21 with her PCP. Pt states she is sitting there drinking a regular pepsi. She declined answering how her blood sugars were running. Pt denies further questions or concerns at this time. TC to [facility], spoke with Brenda. She states pt will be admitted to their services tomorrow and they will reach out to her.
== END 2021-01-27 15:00 | disposition home health service (06) | DRG 137 ==
LOC: ED 22:59 → MS3 01-24 02:08
PROVIDERS: Family Medicine; Internal Medicine; Admitting Provider Hospitalist; Emergency Provider Student in an Organized Health Care Education/Training Program; PCP Family Medicine; Visit Provider Student in an Organized Health Care Education/Training Program
DX: U07.1 COVID-19 (principal); J12.82 Pneumonia due to coronavirus disease 2019; J96.01 Acute respiratory failure with hypoxia; E11.22 Type 2 diabetes mellitus with diabetic chronic kidney disease; E78.5 Hyperlipidemia, unspecified; E87.0 Hyperosmolality and hypernatremia; N18.4 Chronic kidney disease, stage 4 (severe); E11.40 Type 2 diabetes mellitus with diabetic neuropathy, unspecified; E11.65 Type 2 diabetes mellitus with hyperglycemia; K21.9 Gastro-esophageal reflux disease without esophagitis; I82.462 Acute embolism and thrombosis of left calf muscular vein; I50.31 Acute diastolic (congestive) heart failure; I13.0 Hypertensive heart and chronic kidney disease with heart failure and stage 1 through stage 4 chronic kidney disease, or unspecified chronic kidney disease; Z79.4 Long term (current) use of insulin; Z79.899 Other long term (current) drug therapy; Z79.01 Long term (current) use of anticoagulants; Z79.82 Long term (current) use of aspirin; Z87.891 Personal history of nicotine dependence; Z28.3 Underimmunization status
CPT/HCPCS: 36415; 71045; 76770; 80048; 80069; 81001; 82947; 82962; 83880; 84145; 84484; 85025; 87426; 87635; 93005; 94640; 94760; 97162; 97166; 97535; 99251; 99285; U0005; A4216; G0463; J1940; U0003

== ENCOUNTER 2021-01-29 12:41 | Inpatient (IN) | payer MEDICAID, SELFPAY ==
[2021-01-29] VITALS (8 sets, daily range): BP systolic 131–166; BP diastolic 50–74; PULSE 59–70; RESP 18–20; TEMP 37–37.1; O2SAT 92–95; BMI 25.4; BMI 24.5
--- NOTE | 2021-01-29 12:49 | RAD_ITS ---
STUDY: X-RAY CHEST REASON FOR EXAM: Female, 75 years old. Sob . Covid positive. TECHNIQUE: Single AP portable view of the chest. COMPARISON: Comparison is made with prior study 01/25/2021. FINDINGS: EKG electrodes are seen. Since prior study, there has been progressive infiltration in the right upper and right lower lobes. Mild left basilar pulmonary infiltrate. There is no demonstrated pleural abnormality. Normal size heart. Normal mediastinum and roya. Normal visualized pulmonary arteries. Normal visualized aortic arch and descending thoracic aorta. Normal visualized thoracic spine. There is degenerative osteoarthritis of the bilateral shoulders. There is no demonstrated abnormality of the visualized soft tissue structures of the upper abdomen. RAD/Chest 1 View (Portable) IMPRESSION: Progressive right hemithorax infiltrates. Residual left lower lobe infiltrate. Electronically Signed: Jose David Dao MD at 14:10 EDT , Service support ,
--- NOTE | 2021-01-29 12:52 | EX.ED.DYSGE1 ---
HPI History of Present Illness Chief Complaint: Hyperglycemia Narrative Narrative: Patient is Covid positive as of 5 days ago, she lives home alone, her blood sugar was in the 600s today apparently she has not been eating or drinking since she has no access to any of this. She tells me she has been taking her medications but cannot give me a good idea of what they are. Apparently home health does help with this sometimes. She is denying fever chills she is complaining of generalized weakness which is much worse than normal. She has no shortness of breath. [facility] Medical History (Updated 01/29/21 @ 15:[address] Chuckie Rubio MD) Anxiety Chronic kidney disease, stage 3b Cognitive decline COVID-19 Depression Diabetes Gastric reflux GERD (gastroesophageal reflux disease) High cholesterol History of tobacco use HLD (hyperlipidemia) HTN (hypertension) Hydronephrosis Hypertension Injury of back Nephrolithiasis Non-smoker Pyelonephritis Shortness of breath on exertion Uncontrolled type 2 diabetes mellitus Uses wheelchair Home Medications amlodipine 10 mg PO DAILY 06/05/18 [History Last Taken 08/04/19] atorvastatin 40 mg PO DAILY 06/05/18 [History Last Taken 08/04/19] lansoprazole 30 mg PO DAILY 11/03/20 [History Last Taken Unknown] pregabalin 50 mg PO TID #0 cap 11/07/20 [Rx Last Taken 08/04/19] ondansetron 4 mg PO TID PRN 3 Days #10 tab 12/02/20 [Rx Last Taken Unknown] docusate sodium [DOK] 100 mg PO DAILY 12/17/20 [History Last Taken Unknown] hydralazine 100 mg PO TID 12/17/20 [History Last Taken Unknown] tamsulosin 0.4 mg PO DAILY@1730 #14 cap 01/16/21 [Rx Last Taken Unknown] Eliquis 10 mg PO BID #0 tab 01/21/21 [Rx Last Taken Unknown] acetaminophen [Tylenol] 650 mg PO Q4H PRN PRN #0 tab 01/21/21 [Rx Last Taken Unknown] aspirin 81 mg PO DAILY #0 tab 01/21/21 [Rx Last Taken Unknown] carvedilol 3.125 mg PO BID #0 tab 01/21/21 [Rx Last Taken Unknown] guaifenesin 20 ml PO Q4H PRN PRN #0 ml 01/21/21 [Rx Last Taken Unknown] insulin lispro [Humalog KwikPen Insulin] See Protocol SUBCUT ACHS #0 ml 01/21/21 [Rx Last Taken Unknown] dexamethasone [Decadron] 6 mg PO DAILY #6 tab 01/27/21 [Rx Last Taken Unknown] insulin glargine [Lantus Solostar U-100 Insulin] 10 unit SUBCUT QPM #15 ml 01/27/21 [Rx Last Taken Unknown] Allergy/AdvReac Type Severity Reaction Status Date / Time blue dye Allergy PASS OUT Verified 01/18/21 12:11 Family History Father Diabetes Mother Hypertension Surgical History H/O: hysterectomy History of cholecystectomy History of cystoscopy Social History household members: none Smoking Status: Former smoker alcohol intake: never substance use type: does not use ROS ROS ED ROS Narrative Past medical history: Reviewed, history of diabetes, hypertension, chronic pain Medications: Reviewed Social history: Noncontributory Review of systems: All systems negative except as indicated General: No fever. Generalized weakness as in HPI Eyes: No visual changes ENT: No upper airway congestion, normal voice Neck: No neck pain Cardiovascular: No chest pain Respiratory: No shortness of breath or cough Gastrointestinal: No abdominal pain, nausea vomiting or diarrhea Genitourinary: No dysuria Musculoskeletal: Some myalgias and generalized weakness Skin: No rash Neurological: No memory loss, confusion or any focal weakness EXAM Physical Exam Narrative Exam Narrative: Physical exam General: Patient appears chronically ill. Head: Normocephalic, Atraumatic Eyes: Conjunctiva not pale ENT: Somewhat dry mucous membranes Neck: Supple, Nontender, No lymphadenopathy Cardiovascular: Regular rate, Regular rhythm Respiratory: Coarse bilateral breath sounds she does not appear respiratory distress Abdomen: Soft, Nontender, Nondistended Back: Nontender, Normal Inspection. Negative for: CVA tenderness Extremities: Nontender, No edema Skin: Normal color, No rash Neurological: Alert, Normal Strength, Normal Sensation Psychological: Normal affect Const Vital Signs: 01/29/21 12:45 01/29/21 12:51 01/29/21 13:17 Temperature 98.6 F 98.6 F Temperature Source Oral Oral Pulse Rate 64 64 Respiratory Rate 20 H 20 H Respiratory Effort Normal Non-Labored Respiratory Pattern Normal Blood Pressure 166/74 H 166/74 H Blood Pressure Mean 104 104 Pulse Ox 95 95 Oxygen Delivery Method Room Air Room Air 01/29/21 14:14 01/29/21 15:16 Temperature Temperature Source Pulse Rate 70 63 Respiratory Rate 20 H 18 Respiratory Effort Respiratory Pattern Blood Pressure 162/52 H 131/50 H Blood Pressure Mean 88 77 Pulse Ox 95 92 Oxygen Delivery Method Room Air Room Air MDM MDM MDM Narrative Medical decision making narrative: Patient has hyperglycemia which I treated she also has generalized weakness and she is Covid positive, I try to get her in an ECF but at this time she is refusing and I cannot get her into a rehab facility secondary to the Covid, I called the hospitalist for admission Lab Data Labs: Laboratory Results - last 24 hr 01/29/21 01/29/21 01/29/21 13:05 13:05 14:13 WBC 4.1 L RBC 4.00 L Hgb 10.7 L Hct 34.2 L MCV 85.5 MCH 26.8 L MCHC 31.3 L RDW Std Deviation 46.2 H RDW Coeff of Wade 14.9 H Plt Count 272 MPV 11.5 Immature Gran % (Auto) 0.700 Neut % (Auto) 72.5 H Lymph % (Auto) 14.5 L [place] % (Auto) 12.3 H Eos % (Auto) 0.0 Baso % (Auto) 0.0 Absolute Neuts (auto) 3.0 Absolute Lymphs (auto) 0.60 L Nucleated RBC % 0 Diff Path Review May foll Sodium 139 Potassium 5.2 H Chloride 106 Carbon Dioxide 18.0 L Anion Gap 15 BUN 93 H Creatinine 3.09 H Estim Creat Clear Calc 12.24 Est GFR (MDRD) Af Amer 19 L Est GFR (MDRD) Non-Af 16 L BUN/Creatinine Ratio 30.1 H Glucose > 500 H* Calcium 7.8 L Total Bilirubin 0.40 AST 26 ALT 22 Alkaline Phosphatase 103 Troponin I High Sens 52 Total Protein 8.0 Albumin 2.6 L Globulin 5.4 H Albumin/Globulin Ratio 0.5 L Urine Color Red Urine Clarity Sl. Cloudy Urine pH 7.0 Ur Specific [place] 1.010 Urine Protein 100 H Urine Glucose (UA) 1000 H Urine Ketones Negative Urine Occult Blood 250 H Urine Nitrite Negative Urine Bilirubin Negative Urine Urobilinogen Normal Ur Leukocyte Esterase 500 H Urine RBC 25-50 SEEN Urine WBC 25-50 SEEN Ur Squamous Epith Cells 0-5 SEEN Urine Bacteria 1+ Urine Mucus 0 SEEN Acetone Level 01/29/21 15:10 WBC RBC Hgb Hct MCV MCH MCHC RDW Std Deviation RDW Coeff of Wade Plt Count MPV Immature Gran % (Auto) Neut % (Auto) Lymph % (Auto) [place] % (Auto) Eos % (Auto) Baso % (Auto) Absolute Neuts (auto) Absolute Lymphs (auto) Nucleated RBC % Diff Path Review Sodium Potassium Chloride Carbon Dioxide Anion Gap BUN Creatinine Estim Creat Clear Calc Est GFR (MDRD) Af Amer Est GFR (MDRD) Non-Af BUN/Creatinine Ratio Glucose Calcium Total Bilirubin AST ALT Alkaline Phosphatase Troponin I High Sens Total Protein Albumin Globulin Albumin/Globulin Ratio Urine Color Urine Clarity Urine pH Ur Specific [place] Urine Protein Urine Glucose (UA) Urine Ketones Urine Occult Blood Urine Nitrite Urine Bilirubin Urine Urobilinogen Ur Leukocyte Esterase Urine RBC Urine WBC Ur Squamous Epith Cells Urine Bacteria Urine Mucus Acetone Level NEGATIVE Radiography Diagnostic Testing: Clinical Impression(s) from Imaging Studies Chest X-Ray 01/29/21 12:49 IMPRESSION: Progressive right hemithorax infiltrates. Residual left lower lobe infiltrate. Electronically Signed: Jose David Dao MD at 14:10 EDT , Service support , Discharge Plan Triage Chief Complaint: Hyperglycemia ED Provider: Chuckie Rubio Dx/Rx/DC Orders Clinical Impression: Hyperglycemia, COVID-19 Prescriptions: No Action atorvastatin 40 MG tablet 40 mg PO DAILY RF: 0 amlodipine 10 MG tablet 10 mg PO DAILY RF: 0 lansoprazole 30 mg Capsule,Delayed Release(Dr/Ec) 30 mg PO DAILY RF: 0 pregabalin 50 MG capsule 50 mg PO TID Qty: 0 RF: 0 hydralazine 50 mg tablet 100 mg PO TID RF: 0 docusate sodium [DOK] 100 MG capsule 100 mg PO DAILY RF: 0 ondansetron 4 mg tablet,disintegrating 4 mg PO TID PRN (Reason: nausea and vomiting) 3 Days Qty: 10 RF: 0 tamsulosin 0.4 mg Capsule 0.4 mg PO DAILY@1730 Qty: 14 RF: 0 acetaminophen [Tylenol] 325 mg Tablet 650 mg PO Q4H PRN PRN (Reason: Fever, pain 1-01/18) Qty: 0 RF: 0 Eliquis 5 mg Tablet 10 mg PO BID Qty: 0 RF: 0 guaifenesin 100 mg/5 mL Liquid 20 ml PO Q4H PRN PRN (Reason: COUGH) Qty: 0 RF: 0 carvedilol 3.125 mg Tablet 3.125 mg PO BID Qty: 0 RF: 0 aspirin 81 mg Tablet,Chewable 81 mg PO DAILY Qty: 0 RF: 0 insulin lispro [Humalog KwikPen Insulin] 100 unit/mL Insulin Pen See Protocol unit subcut ACHS Qty: 0 RF: 0 dexamethasone [Decadron] 6 mg tablet 6 mg PO DAILY Qty: 6 RF: 0 Lantus Solostar U-100 Insulin 100 unit/mL (3 mL) insulin pen 10 unit subcut QPM Qty: 15 RF: 1 Primary Care Provider: Shawn Almeida Referrals: Shawn Almeida MD [Primary Care Provider] - Disposition Disposition: Acute Care Hospital [facility]
[2021-01-29 13:33] LABS: Hematocrit 34.2 % (37-47); Hemoglobin 10.7 g/dL (12.0-15.0); Lymphocyte % 14.5 % (19-41); Mean Corp Hgb Conc 31.3 g/dL (32-36); Mean Corpuscular Hgb 26.8 pg (27.0-32.0); Mean Corpuscular Volume 85.5 fL (81-99); Mean Platelet Vol. 11.5 fl (6.2-12.0); Monocyte# 0.51 X10^3/uL; Monocyte% 12.3 % (0-10); NRBC Flagged by Analyzer 0 % (0-5); Neutrophil # 2.99 X10^3/uL (2.7-7.7); Neutrophil % 72.5 % (47-70); POSITIVE DIFFERENTIAL YES; Platelet Count 272 K/mm3 (150-450); RBC Distribution Width CV 14.9 % (11.6-14.6); RBC Distribution Width SD 46.2 fl (35.1-43.9); White Blood Count 4.1 K/mm3 (4.4-11.0)
[2021-01-29 13:35] LABS: Differential Indicated SCAN CRITERIA MET
--- NOTE | 2021-01-29 13:40 | ED.RN ---
Called lab and let them know multiple nurses have attempted to draw pt. for labs but have been unsuccessful to collect all blood specimens. Nurse asked lab to come up and draw blood on pt. Lab states, we will see what we can do.
[2021-01-29 14:19] LABS: Mucous, Urine 0 SEEN /hpf (<or=2+)
[2021-01-29 14:25] LABS: Color, Urine Red (Yellow); Glucose, Dipstick 1000 mg/dl (Normal); Ketone-Dipstick Negative (Negative); Leukocyte Esterase-Dipstick 500 /ul (Negative); Nitrite-Dipstick Negative (Negative); Occult Blood-Urine 250 /ul (Negative); Protein-Dipstick 100 mg/dl (Negative); Urine Bilirubin Dipstick Negative (Negative); Urine Clarity Sl. Cloudy (Clear); Urine Urobilinogen Normal (Normal)
[2021-01-29 14:32] LABS: Bacteria 1+ /hpf (None Seen); Red Blood Cells-Urine 25-50 SEEN /hpf (0-5); Squamous Epithelial Cells - UA 0-5 SEEN /hpf (5-10); White Blood Cells 25-50 SEEN /hpf (0-5)
--- NOTE | 2021-01-29 14:40 | CM.ED ---
Addendum entered by Ally Mejia 01/29/21 19:14: SARAH noted patient is being admitted. SW called Ranjit at [facility] and made report based on information on squad report. SW noted that patient has been admitted to ICU. SW updated PCU group social worker in daily handoff. Plan: Acute group social worker to follow. Original Note: SARAH Note: Referral Source: MD Referral Reason: Patient is covid positive. Family not assisting. Minimial food and supplies at home. Patient states family not coming aroudn dut to diagnosis. Squad had concerns. SW called SNF that accept covid positive patients. Jazmine Piedra no admission staff available and this life underwriter did not leave message. SW called [facility] and they have covid positive rooms. SW called [facility] and they have NO rooms for covid positive. SW spoke with patients. SW discussed that patient had gone home 2 days ago and patient had returned to the ED. SW discussed SNF. Patient said No.. I don't like intermediate. SW again spoke about patient returning to the ED after discharge and patient said NO, I am not going to the intermediate.. I hate nursing homes. Patient said that she did not like SNF as the last one she was at the TV was so loud... I couldn't sleep. Patient said that she is meeting with her casemanager on 01/30 at 1:00pm to get a new apartment. Patient voiced that she is being evicted but her casemanager (from unknown agency as patient did not know where her CM is from) and that her daughter is going to help her with the new apartment and everything will be ok. Patient said that her friend has her dogs. Patient repeatedly voices she is not going to SNF but asked if she is being admitted. SW to follow Ally Mejia [employer] Plan: To be determined
[2021-01-29 15:23] LABS: ALB/GLOB Ratio 0.5 RATIO (0.9-2.4); AST(SGOT) 26 U/L (15-37); Alanine Aminotransfer ALT/SGPT 22 U/L (13-56); Albumin, Serum 2.6 g/dL (3.2-5.0); Alkaline Phosphatase 103 U/L (45-117); Anion Gap 15 (5-15); BUN 93 mg/dL (7-18); BUN/Creat Ratio 30.1 RATIO (10-20); Calcium,Total 7.8 mg/dL (8.5-10.1); Chloride 106 mmol/L (98-107); Creatinine, Serum 3.09 mg/dL (0.55-1.02); EST Glomerular Filtration Rate 16 mL/min (>60); Est Glom Filt Rate - Afr Amer 19 mL/min (>60); Estimated Creatinine Clearance 12.24 ml/min; Globulin 5.4 g/dL (2.2-4.2); Glucose > 500 mg/dL (74-106); Potassium 5.2 mmol/L (3.5-5.1); Sodium Level 139 mmol/L (136-145); Troponin-I HS 52 pg/mL (3.0-54.0)
[2021-01-29] MEDS: Insulin Lispro 100 UNIT/ML INSULN.PEN 15 UNIT SC (15:50)
--- NOTE | 2021-01-29 15:50 | HP.PCM_ITS ---
HPI - General General Date of Admission: 01/29/21 HPI Narrative DOMINICK NEELY, is a 75 F with an extensive PMH as outlined who was admitted via the ED on 01/29/2021 with a complaint of elevated blood sugars. Patient was recently discharged a few days ago after being managed for covid 19 pneumonia. SNF was recommended at discharge, but she adamantly refused. SHe came in with weakness and lethargy and was found to have markedly elevated blood sugars. She has not been eating or drinking much, and not compliant with her meds. She was discharged home on Lantus 10 units daily recently but has not been compliant. She denied any fever or chills, nausea vomiting or diarrhea. He denied any palpitations or dizziness. Review of systems otherwise negative. Vitals in the ED showed blood pressure of 131/50 with pulse of 63, respiratory rate of 18 and oxygen saturation of 92% on room air. Chemistry showed potassium of 5.2 with bicarb of 18 and anion gap of 15. Creatinine was 3.09. CBC showed hemoglobin of around 10 but was otherwise unremarkable. Urinalysis showed 1+ bacteria. Chest x-ray showed progressive right hemithorax infiltrates and residual left lower lobe infiltrate. She has been admitted to be managed for debility due to hyperglycemia which is also due to noncompliance with medication. [facility] Medical History (Updated 01/29/21 @ 15:[address] Chuckie Rubio MD) Anxiety Chronic kidney disease, stage 3b Cognitive decline COVID-19 Depression Diabetes Gastric reflux GERD (gastroesophageal reflux disease) High cholesterol History of tobacco use HLD (hyperlipidemia) HTN (hypertension) Hydronephrosis Hypertension Injury of back Nephrolithiasis Non-smoker Pyelonephritis Shortness of breath on exertion Uncontrolled type 2 diabetes mellitus Uses wheelchair Home Medications amlodipine 10 mg PO DAILY 06/05/18 [History Last Taken 08/04/19] atorvastatin 40 mg PO DAILY 06/05/18 [History Last Taken 08/04/19] lansoprazole 30 mg PO DAILY 11/03/20 [History Last Taken Unknown] pregabalin 50 mg PO TID #0 cap 11/07/20 [Rx Last Taken 08/04/19] ondansetron 4 mg PO TID PRN 3 Days #10 tab 12/02/20 [Rx Last Taken Unknown] docusate sodium [DOK] 100 mg PO DAILY 12/17/20 [History Last Taken Unknown] hydralazine 100 mg PO TID 12/17/20 [History Last Taken Unknown] tamsulosin 0.4 mg PO DAILY@1730 #14 cap 01/16/21 [Rx Last Taken Unknown] Eliquis 10 mg PO BID #0 tab 01/21/21 [Rx Last Taken Unknown] acetaminophen [Tylenol] 650 mg PO Q4H PRN PRN #0 tab 01/21/21 [Rx Last Taken Unknown] aspirin 81 mg PO DAILY #0 tab 01/21/21 [Rx Last Taken Unknown] carvedilol 3.125 mg PO BID #0 tab 01/21/21 [Rx Last Taken Unknown] guaifenesin 20 ml PO Q4H PRN PRN #0 ml 01/21/21 [Rx Last Taken Unknown] insulin lispro [Humalog KwikPen Insulin] See Protocol SUBCUT ACHS #0 ml 01/21/21 [Rx Last Taken Unknown] dexamethasone [Decadron] 6 mg PO DAILY #6 tab 01/27/21 [Rx Last Taken Unknown] insulin glargine [Lantus Solostar U-100 Insulin] 10 unit SUBCUT QPM #15 ml 01/27/21 [Rx Last Taken Unknown] Allergy/AdvReac Type Severity Reaction Status Date / Time blue dye Allergy PASS OUT Verified 01/18/21 12:11 Family History Father Diabetes Mother Hypertension Surgical History H/O: hysterectomy History of cholecystectomy History of cystoscopy Social History household members: none Smoking Status: Former smoker alcohol intake: never substance use type: does not use ROS Constitutional Constitutional: Reports anorexia, chills, fatigue, malaise and weakness; Denies fever(s) or night sweats Eyes Eyes: Denies change in vision ENT HEENT: Denies dysphagia, headache(s), hearing loss, loss taste/smell, nasal congestion, sore throat or throat swelling Cardiovascular Cardiovascular: Denies chest pain, edema, orthopnea, palpitations or paroxysmal nocturnal dyspnea Respiratory/Chest Respiratory/Chest: Denies cough, shortness of breath at rest or shortness of breath with exertion Gastrointestinal Gastrointestinal: Denies abdominal pain, constipation, dyspepsia, nausea or vomiting Genitourinary Genitourinary: Denies dysuria, urinary incontinence or urinary urgency Musculoskeletal Musculoskeletal: Denies back pain, extremity pain or joint pain Integumentary Integumentary: Denies dry skin Neurologic Neurologic: Denies confusion, headache(s), lack of coordination or numbness Psychiatric Psychiatric: Denies anxiety Endocrine Endocrinology: Denies change in body appearance Hematologic/Lymphatic Hematologic/Lymphatic: Denies anemia Vital Signs Vital Signs Vital Signs: 01/29/21 12:45 01/29/21 12:51 01/29/21 13:17 Temperature 98.6 F 98.6 F Temperature Source Oral Oral Pulse Rate 64 64 Respiratory Rate 20 H 20 H Respiratory Effort Normal Non-Labored Respiratory Pattern Normal Blood Pressure 166/74 H 166/74 H Blood Pressure Mean 104 104 Pulse Ox 95 95 Oxygen Delivery Method Room Air Room Air 01/29/21 14:14 01/29/21 15:16 Temperature Temperature Source Pulse Rate 70 63 Respiratory Rate 20 H 18 Respiratory Effort Respiratory Pattern Blood Pressure 162/52 H 131/50 H Blood Pressure Mean 88 77 Pulse Ox 95 92 Oxygen Delivery Method Room Air Room Air Weight Weight: 134 lb 7.712 oz Body Mass Index (BMI) 25.4 Physical Exam Const alert and oriented x3 Constitutional Narrative: very frail HEENT head/scalp atraumatic Mouth: dry mucous membranes Eyes PERRL and EOMs intact bilaterally Neck no lymphadenopathy and supple Resp normal respiratory effort, normal air movement and clear to auscultation bilaterally Cardio regular rate, regular rhythm, S1 normal heart sound, S2 normal heart sound and no murmurs GI normal to inspection, nondistended, normoactive bowel sounds, soft to palpation, non-tender and non-distended Extremity normal capillary refill and no clubbing, cyanosis or edema General Extremity: no tenderness to palpation of joints or extremities Skin General Skin Exam: turgor normal Neuro CN's II-XII intact bilaterally Motor Exam: strength 5/5 throughout Psych affect normal Results Lab / Micro Data Result Diagrams: 01/29/21 13:05 01/29/21 13:05 Labs: Laboratory Results - last 24 hr 01/29/21 13:05: WBC 4.1 L, RBC 4.00 L, Hgb 10.7 L, Hct 34.2 L, MCV 85.5, MCH 26.8 L, MCHC 31.3 L, RDW Std Deviation 46.2 H, RDW Coeff of Wade 14.9 H, Plt Count 272, MPV 11.5, Immature Gran % (Auto) 0.700, Neut % (Auto) 72.5 H, Lymph % (Auto) 14.5 L, [place] % (Auto) 12.3 H, Eos % (Auto) 0.0, Baso % (Auto) 0.0, Absolute Neuts (auto) 3.0, Absolute Lymphs (auto) 0.60 L, Nucleated RBC % 0, Diff Path Review August01/29/21 13:05: Sodium 139, Potassium 5.2 H, Chloride 106, Carbon Dioxide 18.0 L , Anion Gap 15, BUN 93 H, Creatinine 3.09 H, Estim Creat Clear Calc 12.24, Est GFR (MDRD) Af Amer 19 L, Est GFR (MDRD) Non-Af 16 L, BUN/Creatinine Ratio 30.1 H , Glucose > 500 H*, Calcium 7.8 L, Total Bilirubin 0.40, AST 26, ALT 22, Alkaline Phosphatase 103, Troponin I High Sens 52, Total Protein 8.0, Albumin 2.6 L, Globulin 5.4 H, Albumin/Globulin Ratio 0.5 L 01/29/21 14:13: Urine Color Red, Urine Clarity Sl. Cloudy, Urine pH 7.0, Ur Specific [place] 1.010, Urine Protein 100 H, Urine Glucose (UA) 1000 H, Urine Ketones Negative, Urine Occult Blood 250 H, Urine Nitrite Negative, Urine Bilirubin Negative, Urine Urobilinogen Normal, Ur Leukocyte Esterase 500 H, Urine RBC 25-50 SEEN, Urine WBC 25-50 SEEN, Ur Squamous Epith Cells 0-5 SEEN, Urine Bacteria 1+, Urine Mucus 0 SEEN 01/29/21 15:10: Acetone Level NEGATIVE Radiology Impression Chest X-Ray 01/29/21 12:49 IMPRESSION: Progressive right hemithorax infiltrates. Residual left lower lobe infiltrate. Electronically Signed: Jose David Dao MD at 14:10 EDT , Service support , Assessment & Plan Assessment/Plan (1) Hyperglycemia: PLAN: #Hyperglycemia in a known diabetic due to noncompliance with her meds * was discharged home 2 days ago with lantus 10 units and ISS; she hasnt been ta william her insulin, and has barely been eating at home because her friends who are supposed to be bringing her food have not been doing so as they are scared of her covid diagnosis * blood sugar was in the 600s on admission * was given SC insulin 15 units x 1 in the ED. * hydrate with IVF NS ~ 150cc/hr * trend blood sugars q1hrly. give sc insulin lispro 0/.15 unts/kg, if blood sugars remain elevated, to consider starting drip * #COVID 19 pneumonia * was saturating at 88-89% on room air. oxygen 2L and titrate as needed to maintain sats >90% * wasnt a candidate for remdesivir as the duration of her symptms werent clear. 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 On gabapentin * #CKD IV * had bilateral ureteral stents placed in December 2020 * Cr today: * follow up with nephrology and urology on outpatient basis. * #Debility and failure to thrive * patient has not been able to care for herself at home; she is depending on friends and her home nurse to come in and look after her * patient was recently discharged 2 days ago after refusing to go to SNF. * PT/OT consulted. * fall precautions * DVT prophylaxis: on eliquis. Disposition: patient was counseled again about placement, but again is refusing to go. Case management consulted. Charges/Coding Visit Charges Inpatient E&M: 03416 Init Hosp L3
[2021-01-29] MEDS: Morphine 4 MG/ML Syringe IV (15:51)
[2021-01-29] MEDS: Ondansetron 4 MG/2 ML Vial IV (15:51)
[2021-01-29 15:56] LABS: Lactic Acid 1.2 mmol/L (0.4-1.9)
[2021-01-29 17:16] LABS: Bedside Glucose 422 mg/dL (70-110)
[2021-01-29 18:55] LABS: Bedside Glucose 314 mg/dL (70-110)
[2021-01-29] MEDS: 0.9% Normal Saline 1,000 ML 150 ML IV (20:11)
[2021-01-29] MEDS: Insulin Lispro 100 UNIT/ML INSULN.PEN SC (22:52)
[2021-01-29] MEDS: guaiFENesin 600 MG Tablet PO (22:53)
[2021-01-29] MEDS: NYSTATIN 500,000 UNIT/5 ML UDC 500000 UNIT PO (22:53)
[2021-01-29 23:06] LABS: Bedside Glucose 210 mg/dL (70-110)
[2021-01-30] VITALS (18 sets, daily range): BP systolic 112–168; BP diastolic 40–77; PULSE 65–76; RESP 16–18; TEMP 36.8–37.3; O2SAT 88–95
[2021-01-30] MEDS: 0.9% Normal Saline 1,000 ML 150 ML IV ×2 (00:59→08:03)
[2021-01-30] MEDS: hydrALAZINE 20 MG/ML Vial 10 MG IV (01:10)
--- NOTE | 2021-01-30 01:16 | PCS.PANDOC ---
PANDEMIC DOCUMENTATION INITIATED: Date: 11/24/2020 Time: 190
[2021-01-30] MEDS: guaiFENesin 10 ML UDC (200MG/10ML) PO (03:45)
[2021-01-30 07:00] LABS: Bedside Glucose 107 mg/dL (70-110)
[2021-01-30 08:10] LABS: Bedside Glucose 110 mg/dL (70-110)
[2021-01-30 08:27] LABS: Absolute Neutrophil Count 11.9 X10^3/uL (2.0-7.7); Basophil# 0.01 X10^3/uL; Basophil% 0.1 % (0-1); Eosinophil# 0.03 X10^3/uL; Eosinophils% 0.2 % (0-5); Hematocrit 31.4 % (37-47); Hemoglobin 9.9 g/dL (12.0-15.0); Lymphocyte % 9.2 % (19-41); Mean Corp Hgb Conc 31.5 g/dL (32-36); Mean Corpuscular Hgb 27.7 pg (27.0-32.0); Mean Platelet Vol. 11.2 fl (6.2-12.0); Monocyte# 0.93 X10^3/uL; Monocyte% 6.6 % (0-10); NRBC Flagged by Analyzer 0 % (0-5); Neutrophil # 11.85 X10^3/uL (2.7-7.7); Neutrophil % 83.5 % (47-70); Platelet Count 252 K/mm3 (150-450); RBC Distribution Width CV 15.3 % (11.6-14.6); RBC Distribution Width SD 49.5 fl (35.1-43.9); Red Blood Count 3.57 M/mm3 (4.2-5.4); White Blood Count 14.2 K/mm3 (4.4-11.0)
[2021-01-30 08:56] LABS: Anion Gap 8 (5-15); BUN 69 mg/dL (7-18); Calcium,Total 7.3 mg/dL (8.5-10.1); Chloride 117 mmol/L (98-107); EST Glomerular Filtration Rate 22 mL/min (>60); Est Glom Filt Rate - Afr Amer 27 mL/min (>60); Estimated Creatinine Clearance 16.44 ml/min; Glucose 114 mg/dL (74-106); Potassium 3.7 mmol/L (3.5-5.1); Sodium Level 147 mmol/L (136-145)
[2021-01-30] MEDS: APIXABAN 5 MG TABLET PO ×2 (10:27→21:41)
[2021-01-30] MEDS: dexAMETHasone 2 MG TABLET 6 MG PO (10:27)
[2021-01-30] MEDS: 0.9% Saline Lock 10 ML Syringe IV ×2 (10:27→15:22)
[2021-01-30] MEDS: Carvedilol 3.125 MG TABLET PO ×2 (10:30→21:39)
[2021-01-30] MEDS: Lansoprazole 15 MG Capsule.DR 30 MG PO (10:30)
[2021-01-30] MEDS: NYSTATIN 500,000 UNIT/5 ML UDC 500000 UNIT PO ×4 (10:31→21:41)
[2021-01-30] MEDS: Aspirin 81 MG TAB.CHEW PO (10:31)
[2021-01-30] MEDS: amLODIPine 10 MG Tablet PO (10:31)
[2021-01-30] MEDS: guaiFENesin 600 MG Tablet PO ×2 (10:31→21:39)
[2021-01-30] MEDS: Insulin Lispro 100 UNIT/ML INSULN.PEN SC ×2 (10:47→21:35)
[2021-01-30 11:01] LABS: Bedside Glucose 169 mg/dL (70-110)
--- NOTE | 2021-01-30 13:15 | PN.HOSP_ITS ---
Subjective Subjective Patient seen and examined. She feels much better today. She has no active complaints. HEr blood sugars have trended down. Review of systems is otherwise negative. Cr is down to 2.3 from 3.09. Objective Data Objective Data Vital Signs: Vital Signs Temp Pulse Resp BP Pulse Ox 99.1 F 72 16 165/62 H 93 01/30/21 10:14 01/30/21 10:14 01/30/21 10:14 01/30/21 10:14 01/30/21 10:14 Oxygen Flow Rate (L/min) 2 Oxygen Delivery Method Nasal Cannula Weight: 130 lb 1.164 oz Body Mass Index (BMI) 24.5 Intake & Output: Intake and Output for Last 24 Hours 01/28/21 01/29/21 01/30/21 23:59 23:59 23:59 Intake Total 500 / 980 2420 / 2420 Output Total 550 / 550 Balance 500 / 530 1870 / 1870 Medical Nutrition Assessment Dietitian: Malnutrition Criteria Met Start: 01/30/21 12:06 Freq: Status: Active Protocol: Document 01/30/21 12:06 RIRI (Rec: 01/30/21 12:06 [facility] [id number]) Nutrition Malnutrition Evidence of Malnutrition Exists Yes Malnutrition (severe): Acute Illness/Injury Evidenced By Suboptimal Energy Intake ( Severe),Weight Loss (Severe) Clinical Problem Acute Disease or Injury Related Malnutrition Etiology related to acute illness and inability to meet est nutritional needs Signs/Symptoms as evidenced by 12.5% wt loss x 11 days and <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 Dietitian Recommendations/Changes Will liberalize diet to Consistent Carbohydrate - No Added Salt d/t signs/symptoms of malnutrition Will provide 120 ml glucerna shake w/ meals for increased nutrition if consumed Lab / Micro Data Result Diagrams: 01/30/21 08:15 01/30/21 08:15 Labs: Laboratory Results - last 24 hr 01/29/21 13:05: WBC 4.1 L, RBC 4.00 L, Hgb 10.7 L, Hct 34.2 L, MCV 85.5, MCH 26.8 L, MCHC 31.3 L, RDW Std Deviation 46.2 H, RDW Coeff of Wade 14.9 H, Plt Count 272, MPV 11.5, Immature Gran % (Auto) 0.700, Neut % (Auto) 72.5 H, Lymph % (Auto) 14.5 L, [place] % (Auto) 12.3 H, Eos % (Auto) 0.0, Baso % (Auto) 0.0, Absolute Neuts (auto) 3.0, Absolute Lymphs (auto) 0.60 L, Nucleated RBC % 0, Diff Path Review August01/29/21 13:05: Sodium 139, Potassium 5.2 H, Chloride 106, Carbon Dioxide 18.0 L , Anion Gap 15, BUN 93 H, Creatinine 3.09 H, Estim Creat Clear Calc 12.24, Est GFR (MDRD) Af Amer 19 L, Est GFR (MDRD) Non-Af 16 L, BUN/Creatinine Ratio 30.1 H , Glucose > 500 H*, Calcium 7.8 L, Total Bilirubin 0.40, AST 26, ALT 22, Alkaline Phosphatase 103, Troponin I High Sens 52, Total Protein 8.0, Albumin 2.6 L, Globulin 5.4 H, Albumin/Globulin Ratio 0.5 L 01/29/21 14:13: Urine Color Red, Urine Clarity Sl. Cloudy, Urine pH 7.0, Ur Specific [place] 1.010, Urine Protein 100 H, Urine Glucose (UA) 1000 H, Urine Ketones Negative, Urine Occult Blood 250 H, Urine Nitrite Negative, Urine Bilirubin Negative, Urine Urobilinogen Normal, Ur Leukocyte Esterase 500 H, Urine RBC 25-50 SEEN, Urine WBC 25-50 SEEN, Ur Squamous Epith Cells 0-5 SEEN, Urine Bacteria 1+, Urine Mucus 0 SEEN 01/29/21 15:10: Acetone Level NEGATIVE 01/29/21 15:10: Lactic Acid 1.2 01/29/21 17:11: POC Glucose 422 H 01/29/21 18:34: POC Glucose 314 H 01/29/21 22:47: POC Glucose 210 H 01/30/21 06:48: POC Glucose 107 01/30/21 08:06: POC Glucose 110 01/30/21 08:15: WBC 14.2 H, RBC 3.57 L, Hgb 9.9 L, Hct 31.4 L, MCV 88.0, MCH 27.7, MCHC 31.5 L, RDW Std Deviation 49.5 H, RDW Coeff of Wade 15.3 H, Plt Count 252, MPV 11.2, Immature Gran % (Auto) 0.400, Neut % (Auto) 83.5 H, Lymph % (Auto) 9.2 L, [place] % (Auto) 6.6, Eos % (Auto) 0.2, Baso % (Auto) 0.1, Absolute Neuts (auto) 11.9 H, Absolute Lymphs (auto) 1.30, Nucleated RBC % 0 01/30/21 08:15: Sodium 147 H, Potassium 3.7, Chloride 117 H, Carbon Dioxide 22.0, Anion Gap 8, BUN 69 H, Creatinine 2.30 H, Estim Creat Clear Calc 16.44, Est GFR (MDRD) Af Amer 27 L, Est GFR (MDRD) Non-Af 22 L, BUN/Creatinine Ratio 30.0 H, Glucose 114 H, Calcium 7.3 L 01/30/21 10:45: POC Glucose 169 H Radiography Diagnostic Testing: Radiology Impression Chest X-Ray 01/29/21 12:49 IMPRESSION: Progressive right hemithorax infiltrates. Residual left lower lobe infiltrate. Electronically Signed: Jose David Dao MD at 14:10 EDT , Service support , Physical Exam Const alert and oriented x3 Constitutional Narrative: very frail Exam Limitations: no limitations HEENT head/scalp atraumatic and moist oral mucous membranes Head and Scalp: normocephalic Eyes PERRL and EOMs intact bilaterally Neck no lymphadenopathy and supple Resp normal respiratory effort, normal air movement and clear to auscultation bilaterally Cardio regular rate, regular rhythm, S1 normal heart sound, S2 normal heart sound and no murmurs GI normal to inspection, nondistended, normoactive bowel sounds, soft to palpation, non-tender and non-distended Extremity normal to inspection, full ROM, normal capillary refill and no clubbing, cyanosis or edema General Extremity: no tenderness to palpation of joints or extremities Peripheral Pulses: Yes pulses 2+ throughout Skin no rashes or lesions noted General Skin Exam: turgor normal Neuro oriented x3 and CN's II-XII intact bilaterally Sensorium / Orientation: awake and alert Motor Exam: strength 5/5 throughout Psych affect normal Assessment & Plan Assessment/Plan (1) Hyperglycemia: PLAN: #Hyperglycemia in a known diabetic due to noncompliance with her meds * resolved. Blood sugar trended down with fluids and SQ insulin * patient transitioned to Sq lantus 10 units bid * ISS. Accuchecks ACHS * #COVID 19 pneumonia * on 2L of oxygen. * titrate oxygen to maintain sats >90% * breathing treatment with bronchodilators. 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 On gabapentin * #EMANUEL on CKD IV * had bilateral ureteral stents placed in December 2020 * Cr today:trended down from 3.09 to 2.30 * follow up with nephrology and urology on outpatient basis. * hydrated with IVF * #Leucocytosis * wbc up to 14.2. * likely reactive, from hyperglycemia. * No clear evidence of infection. Will trend and hold off on antibiotics for now * #Debility and failure to thrive * PT/OT on board. * Fall precautions. * patient still refusing placement, though she is too weak and frail and unable to care for herself at home. * DVT prophylaxis: on eliquis. Charges/Coding Visit Charges Inpatient E&M: 34231 Subs Hosp L2
[2021-01-30] MEDS: Pregabalin 50 MG Capsule PO ×2 (13:54→21:39)
[2021-01-30] MEDS: hydrALAZINE 50 MG Tablet 100 MG PO ×2 (13:54→21:40)
[2021-01-30 14:26] LABS: Bedside Glucose 148 mg/dL (70-110)
[2021-01-30] MEDS: Ondansetron 4 MG/2 ML Vial IV (15:21)
[2021-01-30 15:44] LABS: Pathologist Review Reviewed
--- NOTE | 2021-01-30 16:24 | CASEMGMT ---
Readmission chart review: 01/13/21-01/16/21 UTI, Hydronephrosis 01/18/21-01/21/21 Pna, hypoxia-d/c to [facility] left AMA same day 01/24/21-01/27/21 COVID, Acute hypoxemic resp failure-dx'd with COVID 01/29/21-current Hyperglycemia Pt is on 4th admission in the last 15 days. Therapy has recommended SNF at discharge each visit and pt has declined all except once and that visit did go to [facility] but left AMA the same day. Per EMS and pt herself, she is unable to care for self at home. Pt has a friend that assists but she also says that he is an alcoholic and has not been helping her much. Pt has a CM thru [facility], Isela Desai and has a med alert. See previous CM assessments/chart reviews. Pt cancelled delivered meals and per EMS, there was not much food in home. Pt did test positive for COVID on 01/24. Therapy is again recommending SNF. SW to f/u with pt regarding same tomorrow and this RN CM advised pt to think about SNF, voices understanding. Pt aware that once she gets stronger at SNF, she can discharge back home with her dogs, voices understanding. Pt states previous concerns that once she is there, they will keep her there forever and pt voices understanding to this RN CM that that will not happen. Pt was set up with [facility] but unsure if they were ever able to do start of care d/t pt always returning back to [facility] ED. CM to follow for any further discharge planning/needs. SStaten RN CM .
[2021-01-30 16:40] LABS: Bedside Glucose 148 mg/dL (70-110)
[2021-01-30] MEDS: Tamsulosin HCl 0.4 MG Capsule PO (17:57)
[2021-01-30] MEDS: Atorvastatin Calcium 40 MG Tablet PO (21:40)
[2021-01-30 22:05] LABS: Bedside Glucose 366 mg/dL (70-110)
[2021-01-31] VITALS (13 sets, daily range): BP systolic 118–158; BP diastolic 52–59; PULSE 64–79; RESP 15–18; TEMP 36.9–37.2; O2SAT 87–93
[2021-01-31] MEDS: 0.9% Saline Lock 10 ML Syringe IV (02:53)
[2021-01-31] MEDS: Ondansetron 4 MG/2 ML Vial IV ×2 (02:53→22:28)
[2021-01-31] MEDS: guaiFENesin 10 ML UDC (200MG/10ML) 20 ML PO ×3 (02:58→16:51)
[2021-01-31 05:45] LABS: Absolute Neutrophil Count 5.9 X10^3/uL (2.0-7.7); Hematocrit 28.8 % (37-47); Hemoglobin 8.8 g/dL (12.0-15.0); Mean Corp Hgb Conc 30.6 g/dL (32-36); Mean Corpuscular Hgb 27.2 pg (27.0-32.0); Mean Corpuscular Volume 88.9 fL (81-99); Monocyte% 5.7 % (0-10); NRBC Flagged by Analyzer 0 % (0-5); Neutrophil # 5.85 X10^3/uL (2.7-7.7); Neutrophil % 83.9 % (47-70); Platelet Count 205 K/mm3 (150-450); RBC Distribution Width CV 15.3 % (11.6-14.6); RBC Distribution Width SD 49.5 fl (35.1-43.9); Red Blood Count 3.24 M/mm3 (4.2-5.4)
[2021-01-31 06:28] LABS: Anion Gap 9 (5-15); BUN 70 mg/dL (7-18); BUN/Creat Ratio 29.5 RATIO (10-20); Calcium,Total 7.3 mg/dL (8.5-10.1); Chloride 112 mmol/L (98-107); Creatinine, Serum 2.37 mg/dL (0.55-1.02); EST Glomerular Filtration Rate 21 mL/min (>60); Est Glom Filt Rate - Afr Amer 26 mL/min (>60); Estimated Creatinine Clearance 15.95 ml/min; Glucose 324 mg/dL (74-106); Potassium 4.3 mmol/L (3.5-5.1); Sodium Level 141 mmol/L (136-145)
[2021-01-31] MEDS: Insulin Lispro 100 UNIT/ML INSULN.PEN SC ×4 (06:50→22:17)
[2021-01-31] MEDS: Pregabalin 50 MG Capsule PO ×3 (06:53→22:23)
[2021-01-31] MEDS: hydrALAZINE 50 MG Tablet 100 MG PO ×3 (06:53→22:23)
[2021-01-31 07:05] LABS: Bedside Glucose 284 mg/dL (70-110)
[2021-01-31] MEDS: NYSTATIN 500,000 UNIT/5 ML UDC 500000 UNIT PO ×4 (10:01→22:26)
[2021-01-31] MEDS: Carvedilol 3.125 MG TABLET PO ×2 (10:02→22:23)
[2021-01-31] MEDS: amLODIPine 10 MG Tablet PO (10:02)
[2021-01-31] MEDS: Aspirin 81 MG TAB.CHEW PO (10:02)
[2021-01-31] MEDS: Lansoprazole 15 MG Capsule.DR 30 MG PO (10:02)
[2021-01-31] MEDS: guaiFENesin 600 MG Tablet PO ×2 (10:02→22:23)
[2021-01-31] MEDS: dexAMETHasone 2 MG TABLET 6 MG PO (10:02)
[2021-01-31] MEDS: Acetaminophen 325 MG Tablet 650 MG PO (10:03)
[2021-01-31 11:36] LABS: Bedside Glucose 343 mg/dL (70-110)
--- NOTE | 2021-01-31 14:04 | PN.HOSP_ITS ---
Subjective Subjective Patient seen and examined. She has no complaints today. I am informed by her nurse that she had some hematuria overnight. Her eliquis is on hold. Review of systems is otherwise negative. She is still adamantly refusing to go to SNF. Objective Data Objective Data Vital Signs: Vital Signs Temp Pulse Resp BP Pulse Ox 98.9 F 77 18 149/52 H 87 01/31/21 09:48 01/31/21 09:48 01/31/21 09:48 01/31/21 09:48 01/31/21 10:00 Oxygen Flow Rate (L/min) 2 Oxygen Delivery Method Nasal Cannula Weight: 130 lb 1.164 oz Body Mass Index (BMI) 24.5 Intake & Output: Intake and Output for Last 24 Hours 01/29/21 01/30/21 01/31/21 23:59 23:59 23:59 Intake Total 500 / 980 3712.5 / 3952.5 1140 / 1140 Output Total 1050 / 1170 820 / 820 Balance 500 / 530 2662.5 / 2782.5 320 / 320 Medical Nutrition Assessment Dietitian: Malnutrition Criteria Met Start: 01/30/21 12:06 Freq: Status: Active Protocol: Document 01/30/21 12:06 RIRI (Rec: 01/30/21 12:06 RIRI [id number]) Nutrition Malnutrition Evidence of Malnutrition Exists Yes Malnutrition (severe): Acute Illness/Injury Evidenced By Suboptimal Energy Intake ( Severe),Weight Loss (Severe) Clinical Problem Acute Disease or Injury Related Malnutrition Etiology related to acute illness and inability to meet est nutritional needs Signs/Symptoms as evidenced by 12.5% wt loss x 11 days and <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 Dietitian Recommendations/Changes Will liberalize diet to Consistent Carbohydrate - No Added Salt d/t signs/symptoms of malnutrition Will provide 120 ml glucerna shake w/ meals for increased nutrition if consumed Lab / Micro Data Result Diagrams: 01/31/21 05:13 01/31/21 05:13 Labs: Laboratory Results - last 24 hr 01/29/21 13:05: Diff Path Review Reviewed 01/30/21 14:20: POC Glucose 148 H 01/30/21 16:21: POC Glucose 148 H 01/30/21 21:30: POC Glucose 366 H 01/31/21 05:13: WBC 7.0, RBC 3.24 L, Hgb 8.8 L, Hct 28.8 L, MCV 88.9, MCH 27.2, MCHC 30.6 L, RDW Std Deviation 49.5 H, RDW Coeff of Wade 15.3 H, Plt Count 205, MPV 12.0, Immature Gran % (Auto) 0.400, Neut % (Auto) 83.9 H, Lymph % (Auto) 10.0 L, [place] % (Auto) 5.7, Eos % (Auto) 0.0, Baso % (Auto) 0.0, Absolute Neuts (auto) 5.9, Absolute Lymphs (auto) 0.70 L, Nucleated RBC % 0 01/31/21 05:13: Sodium 141, Potassium 4.3, Chloride 112 H, Carbon Dioxide 20.0 L , Anion Gap 9, BUN 70 H, Creatinine 2.37 H, Estim Creat Clear Calc 15.95, Est GFR (MDRD) Af Amer 26 L, Est GFR (MDRD) Non-Af 21 L, BUN/Creatinine Ratio 29.5 H , Glucose 324 H, Calcium 7.3 L 01/31/21 06:49: POC Glucose 284 H 01/31/21 11:29: POC Glucose 343 H Physical Exam Const alert and oriented x3 Constitutional Narrative: very frail Exam Limitations: no limitations HEENT head/scalp atraumatic and moist oral mucous membranes Head and Scalp: normocephalic Eyes PERRL and EOMs intact bilaterally Neck no lymphadenopathy and supple Resp normal respiratory effort, normal air movement, no use of accessory muscles and clear to auscultation bilaterally Resp Narrative: on 2L of oxygen by nasal canula, diminished breath sounds bibasally, no wheezes or crackles. Cardio regular rate, regular rhythm, S1 normal heart sound, S2 normal heart sound and no murmurs GI normal to inspection, nondistended, normoactive bowel sounds, soft to palpation, non-tender and non-distended Extremity normal to inspection, full ROM, normal capillary refill and no clubbing, cyanosis or edema General Extremity: no tenderness to palpation of joints or extremities Peripheral Pulses: Yes pulses 2+ throughout Skin no rashes or lesions noted General Skin Exam: turgor normal Neuro oriented x3 and CN's II-XII intact bilaterally Sensorium / Orientation: awake and alert Motor Exam: strength 5/5 throughout Psych affect normal Assessment & Plan Assessment/Plan (1) Hyperglycemia: PLAN: #Hyperglycemia in a known diabetic due to noncompliance with her meds * resolved. * Transitioned to sq lantus 10 units bid * ISS. Accuchecks ACHS * #COVID 19 pneumonia * on 2L of oxygen. * titrate oxygen to maintain sats >90% * breathing treatment with bronchodilators. 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 On gabapentin * #EMANUEL on CKD IV * had bilateral ureteral stents placed in December 2020 * Cr today is 2.4 * follow up with nephrology and urology on outpatient basis. * dc IVF * #Leucocytosis * resolved. Wbc is down to 7. * #Debility and failure to thrive * PT/OT on board. * Fall precautions. * patient still refusing placement, though she is too weak and frail and unable to care for herself at home. Case management on board and seeking to encourage patient to go to SNF as patient admits to not being able to take care of herself. * DVT prophylaxis: SCDs; eliquis on hold due to hematuria. Charges/Coding Visit Charges Inpatient E&M: 86116 Subs Hosp L2
--- NOTE | 2021-01-31 15:37 | CM.ED ---
SARAH Note SW called patient in her room. Initially patient said that she wanted to go to her apartment and this medical writer said that patient has had numerous admissions within the last 15 days (4 admits) and that patient is an assist of 2 and unable to go home without rehab. SARAH advised of placeds that are accepting of COVID + after 10 days. Patient said that her first choice is [facility] in [place] and then [facility] in [place] as her son resides in [place]. SARAH will provide this information to unit social welfare clerk via daily report. Plan : SNF at discharge [facility]
[2021-01-31] MEDS: Tamsulosin HCl 0.4 MG Capsule PO (16:51)
[2021-01-31] MEDS: Loperamide 2 MG Capsule PO (16:51)
[2021-01-31 19:47] LABS: Bedside Glucose 287 mg/dL (70-110)
[2021-01-31] MEDS: Atorvastatin Calcium 40 MG Tablet PO (22:23)
[2021-01-31 22:40] LABS: Bedside Glucose 431 mg/dL (70-110)
[2021-02-01] VITALS (14 sets, daily range): BP systolic 133–164; BP diastolic 53–67; PULSE 66–79; RESP 16–18; TEMP 36.6–37.3; O2SAT 92–95
[2021-02-01] MEDS: guaiFENesin 10 ML UDC (200MG/10ML) 20 ML PO ×4 (02:02→22:47)
[2021-02-01] MEDS: hydrALAZINE 50 MG Tablet 100 MG PO ×3 (05:17→22:52)
[2021-02-01] MEDS: Pregabalin 50 MG Capsule PO ×3 (05:18→22:48)
[2021-02-01] MEDS: Insulin Lispro 100 UNIT/ML INSULN.PEN SC ×4 (06:27→22:52)
[2021-02-01 06:35] LABS: Bedside Glucose 227 mg/dL (70-110)
[2021-02-01 07:25] LABS: Absolute Lymphocyte Count 0.79 X10^3/uL (0.83-4.51); Absolute Neutrophil Count 12.7 X10^3/uL (2.0-7.7); Basophil# 0.01 X10^3/uL; Basophil% 0.1 % (0-1); Hematocrit 29.9 % (37-47); Hemoglobin 9.1 g/dL (12.0-15.0); Lymphocyte # 0.79 X10^3/ul (0.83-4.51); Lymphocyte % 5.6 % (19-41); Mean Corp Hgb Conc 30.4 g/dL (32-36); Mean Corpuscular Hgb 27.1 pg (27.0-32.0); Mean Platelet Vol. 11.8 fl (6.2-12.0); Monocyte# 0.54 X10^3/uL; Monocyte% 3.8 % (0-10); NRBC Flagged by Analyzer 0 % (0-5); Neutrophil # 12.74 X10^3/uL (2.7-7.7); Neutrophil % 89.5 % (47-70); Platelet Count 203 K/mm3 (150-450); RBC Distribution Width CV 15.4 % (11.6-14.6); RBC Distribution Width SD 50.4 fl (35.1-43.9); Red Blood Count 3.36 M/mm3 (4.2-5.4); White Blood Count 14.2 K/mm3 (4.4-11.0)
[2021-02-01 07:44] LABS: Anion Gap 9 (5-15); BUN 74 mg/dL (7-18); Calcium,Total 7.5 mg/dL (8.5-10.1); Chloride 110 mmol/L (98-107); Creatinine, Serum 2.64 mg/dL (0.55-1.02); EST Glomerular Filtration Rate 19 mL/min (>60); Est Glom Filt Rate - Afr Amer 23 mL/min (>60); Estimated Creatinine Clearance 14.32 ml/min; Glucose 237 mg/dL (74-106); Potassium 4.4 mmol/L (3.5-5.1); Sodium Level 140 mmol/L (136-145)
[2021-02-01] MEDS: Lansoprazole 15 MG Capsule.DR 30 MG PO (10:13)
[2021-02-01] MEDS: NYSTATIN 500,000 UNIT/5 ML UDC 500000 UNIT PO ×4 (10:13→22:47)
[2021-02-01] MEDS: dexAMETHasone 2 MG TABLET 6 MG PO (10:14)
[2021-02-01] MEDS: amLODIPine 10 MG Tablet PO (10:14)
[2021-02-01] MEDS: Aspirin 81 MG TAB.CHEW PO (10:14)
[2021-02-01] MEDS: Carvedilol 3.125 MG TABLET PO ×2 (10:14→22:48)
[2021-02-01] MEDS: guaiFENesin 600 MG Tablet PO ×2 (10:14→22:48)
[2021-02-01] MEDS: Acetaminophen 325 MG Tablet 650 MG PO ×2 (10:14→22:57)
--- NOTE | 2021-02-01 12:53 | PN.HOSP_ITS ---
Subjective Subjective Patient seen and examined. She has no complaints this morning. She is now agreeable to going to SNF. Review of systems is otherwise negative. She is now requiring more oxygen and is on 6L of oxygen today. Objective Data Objective Data Vital Signs: Vital Signs Temp Pulse Resp BP Pulse Ox 98.6 F 79 18 164/62 H 92 02/01/21 10:09 02/01/21 10:09 02/01/21 10:09 02/01/21 10:09 02/01/21 10:09 Oxygen Flow Rate (L/min) 6 Oxygen Delivery Method Nasal Cannula Weight: 130 lb 1.164 oz Body Mass Index (BMI) 24.5 Intake & Output: Intake and Output for Last 24 Hours 01/30/21 01/31/21 02/01/21 23:59 23:59 23:59 Intake Total 3712.5 / 3952.5 1440 / 1800 1020 / 1020 Output Total 1050 / 1170 820 / 1220 1100 / 1100 Balance 2662.5 / 2782.5 620 / 580 -80 / -80 Medical Nutrition Assessment Dietitian: Malnutrition Criteria Met Start: 01/30/21 12:06 Freq: Status: Active Protocol: Document 01/30/21 12:06 RIRI (Rec: 01/30/21 12:06 RIRI [id number]) Nutrition Malnutrition Evidence of Malnutrition Exists Yes Malnutrition (severe): Acute Illness/Injury Evidenced By Suboptimal Energy Intake ( Severe),Weight Loss (Severe) Clinical Problem Acute Disease or Injury Related Malnutrition Etiology related to acute illness and inability to meet est nutritional needs Signs/Symptoms as evidenced by 12.5% wt loss x 11 days and <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 Dietitian Recommendations/Changes Will liberalize diet to Consistent Carbohydrate - No Added Salt d/t signs/symptoms of malnutrition Will provide 120 ml glucerna shake w/ meals for increased nutrition if consumed Lab / Micro Data Result Diagrams: 02/01/21 06:46 02/01/21 06:46 Labs: Laboratory Results - last 24 hr 01/31/21 16:50: POC Glucose 287 H 01/31/21 22:16: POC Glucose 431 H 02/01/21 06:25: POC Glucose 227 H 02/01/21 06:46: WBC 14.2 H, RBC 3.36 L, Hgb 9.1 L, Hct 29.9 L, MCV 89.0, MCH 27.1, MCHC 30.4 L, RDW Std Deviation 50.4 H, RDW Coeff of Wade 15.4 H, Plt Count 203, MPV 11.8, Immature Gran % (Auto) 1.000 H, Neut % (Auto) 89.5 H, Lymph % (Auto) 5.6 L, [place] % (Auto) 3.8, Eos % (Auto) 0.0, Baso % (Auto) 0.1, Absolute Neuts (auto) 12.7 H, Absolute Lymphs (auto) 0.79 L, Nucleated RBC % 0 02/01/21 06:46: Sodium 140, Potassium 4.4, Chloride 110 H, Carbon Dioxide 21.0, Anion Gap 9, BUN 74 H, Creatinine 2.64 H, Estim Creat Clear Calc 14.32, Est GFR (MDRD) Af Amer 23 L, Est GFR (MDRD) Non-Af 19 L, BUN/Creatinine Ratio 28.0 H, Glucose 237 H, Calcium 7.5 L Physical Exam Const alert and oriented x3 Constitutional Narrative: very frail Exam Limitations: no limitations HEENT head/scalp atraumatic and moist oral mucous membranes Head and Scalp: normocephalic Eyes PERRL and EOMs intact bilaterally Neck no lymphadenopathy and supple Resp normal respiratory effort, normal air movement, no use of accessory muscles and clear to auscultation bilaterally Resp Narrative: on 6L of oxygen by nasal canula, diminished breath sounds bibasally, no wheezes or crackles. Cardio regular rate, regular rhythm, S1 normal heart sound, S2 normal heart sound and no murmurs GI normal to inspection, nondistended, normoactive bowel sounds, soft to palpation, non-tender and non-distended Extremity normal to inspection, full ROM, normal capillary refill and no clubbing, cyanosis or edema General Extremity: no tenderness to palpation of joints or extremities Peripheral Pulses: Yes pulses 2+ throughout Skin no rashes or lesions noted General Skin Exam: turgor normal Neuro oriented x3 and CN's II-XII intact bilaterally Sensorium / Orientation: awake and alert Motor Exam: strength 5/5 throughout Psych affect normal Assessment & Plan Assessment/Plan (1) Hyperglycemia: PLAN: #Hyperglycemia in a known diabetic due to noncompliance with her meds * resolved. * Transitioned to sq lantus 10 units bid * ISS. Accuchecks ACHS * #Acute hypoxic respiratory failure due to OVID 19 pneumonia * now on 6L of oxygen, up from 2L yesterday * in cumulative positive balance by 3.7L * titrate oxygen to maintain sats >90% * IV lasix 40mg x 1 to help with diuresis. * breathing treatment with bronchodilators. 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 On gabapentin * #EMANUEL on CKD IV * had bilateral ureteral stents placed in December 2020 * Cr today is2.64 * follow up with nephrology and urology on outpatient basis. * dc IVF * #Leucocytosis * resolved. * #Debility and failure to thrive * PT/OT on board. * Fall precautions. * now agreeable to going to a SNF in [place]. Case management on board. * * DVT prophylaxis: SCDs; eliquis on hold due to hematuria. Charges/Coding Visit Charges Inpatient E&M: 14436 Subs Hosp L2
[2021-02-01 13:26] LABS: Bedside Glucose 248 mg/dL (70-110)
[2021-02-01] MEDS: Furosemide 40 MG/4 ML Vial IV (13:48)
[2021-02-01] MEDS: Tamsulosin HCl 0.4 MG Capsule PO (16:38)
[2021-02-01 16:51] LABS: Bedside Glucose 172 mg/dL (70-110)
--- NOTE | 2021-02-01 18:37 | NURSING ---
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
[2021-02-01] MEDS: Atorvastatin Calcium 40 MG Tablet PO (22:48)
[2021-02-01] MEDS: Ondansetron 4 MG/2 ML Vial IV (22:59)
[2021-02-01] MEDS: 0.9% Saline Lock 10 ML Syringe IV (23:00)
[2021-02-01 23:21] LABS: Bedside Glucose 410 mg/dL (70-110)
[2021-02-02] VITALS (14 sets, daily range): BP systolic 98–157; BP diastolic 56–87; PULSE 67–78; RESP 18–20; TEMP 36.8–37.1; O2SAT 92–96
[2021-02-02] MEDS: guaiFENesin 10 ML UDC (200MG/10ML) 20 ML PO ×5 (06:01→22:12)
[2021-02-02] MEDS: Pregabalin 50 MG Capsule PO ×3 (06:01→22:11)
[2021-02-02] MEDS: Insulin Lispro 100 UNIT/ML INSULN.PEN SC ×4 (06:03→22:10)
[2021-02-02] MEDS: Acetaminophen 325 MG Tablet 650 MG PO ×3 (06:05→22:18)
[2021-02-02] MEDS: hydrALAZINE 50 MG Tablet 100 MG PO ×3 (06:05→22:11)
[2021-02-02 06:36] LABS: Bedside Glucose 229 mg/dL (70-110)
[2021-02-02 07:36] LABS: Absolute Lymphocyte Count 0.75 X10^3/uL (0.83-4.51); Absolute Neutrophil Count 12.6 X10^3/uL (2.0-7.7); Basophil# 0.02 X10^3/uL; Basophil% 0.1 % (0-1); Hematocrit 28.8 % (37-47); Hemoglobin 8.9 g/dL (12.0-15.0); Lymphocyte # 0.75 X10^3/ul (0.83-4.51); Lymphocyte % 5.4 % (19-41); Mean Corp Hgb Conc 30.9 g/dL (32-36); Mean Corpuscular Hgb 27.1 pg (27.0-32.0); Mean Corpuscular Volume 87.8 fL (81-99); Monocyte# 0.35 X10^3/uL; Monocyte% 2.5 % (0-10); NRBC Flagged by Analyzer 0 % (0-5); Neutrophil # 12.62 X10^3/uL (2.7-7.7); Neutrophil % 90.3 % (47-70); Platelet Count 200 K/mm3 (150-450); RBC Distribution Width CV 15.8 % (11.6-14.6); RBC Distribution Width SD 50.4 fl (35.1-43.9); Red Blood Count 3.28 M/mm3 (4.2-5.4)
[2021-02-02 08:07] LABS: Anion Gap 10 (5-15); BUN 73 mg/dL (7-18); BUN/Creat Ratio 26.8 RATIO (10-20); Calcium,Total 7.7 mg/dL (8.5-10.1); Chloride 107 mmol/L (98-107); Creatinine, Serum 2.72 mg/dL (0.55-1.02); EST Glomerular Filtration Rate 18 mL/min (>60); Est Glom Filt Rate - Afr Amer 22 mL/min (>60); Glucose 240 mg/dL (74-106); Potassium 5.2 mmol/L (3.5-5.1); Sodium Level 138 mmol/L (136-145)
--- NOTE | 2021-02-02 09:25 | CASEMGMT ---
SARAH noted patient is agreeable to [facility] or [facility]. SARAH faxed referral to [facility]. SARAH also called and left a voice mail regarding referral. Yaneli BANEGAS
[2021-02-02] MEDS: NYSTATIN 500,000 UNIT/5 ML UDC 500000 UNIT PO ×4 (09:46→22:12)
[2021-02-02] MEDS: Loperamide 2 MG Capsule PO (09:47)
[2021-02-02] MEDS: Lansoprazole 15 MG Capsule.DR 30 MG PO (09:47)
[2021-02-02] MEDS: amLODIPine 10 MG Tablet PO (09:47)
[2021-02-02] MEDS: dexAMETHasone 2 MG TABLET 6 MG PO (09:47)
[2021-02-02] MEDS: Aspirin 81 MG TAB.CHEW PO (09:47)
[2021-02-02] MEDS: Carvedilol 3.125 MG TABLET PO ×2 (09:47→22:11)
[2021-02-02] MEDS: Ondansetron 4 MG/2 ML Vial IV (09:47)
[2021-02-02] MEDS: guaiFENesin 600 MG Tablet PO ×2 (09:54→22:11)
[2021-02-02 11:30] LABS: Bedside Glucose 150 mg/dL (70-110)
--- NOTE | 2021-02-02 13:12 | PN.HOSP_ITS ---
Subjective Subjective Pateint seen and examined. SHe complained of coughing. Her cough sounded very wet today, though she was not expectorating. She denied any fever or chills. She was initially on 6L of oxygen; I was informed by her nurse later that she subsequently required up to 15L of oxygen, and had just been weaned down to 9L of oxygen. Objective Data Objective Data Vital Signs: Vital Signs Temp Pulse Resp BP Pulse Ox 98.4 F 73 18 141/87 H 92 02/02/21 12:52 02/02/21 12:57 02/02/21 12:52 02/02/21 12:52 02/02/21 12:52 Oxygen Flow Rate (L/min) 13 Oxygen Delivery Method Nasal Cannula Weight: 130 lb 1.164 oz Body Mass Index (BMI) 24.5 Intake & Output: Intake and Output for Last 24 Hours 01/31/21 02/01/21 02/02/21 23:59 23:59 23:59 Intake Total 1440 / 1800 1640 / 1640 500 / 500 Output Total 820 / 1220 2100 / 2100 300 / 300 Balance 620 / 580 -460 / -460 200 / 200 Medical Nutrition Assessment Dietitian: Malnutrition Criteria Met Start: 01/30/21 12:06 Freq: Status: Active Protocol: Document 01/30/21 12:06 RIRI (Rec: 01/30/21 12:06 RIRI [id number]) Nutrition Malnutrition Evidence of Malnutrition Exists Yes Malnutrition (severe): Acute Illness/Injury Evidenced By Suboptimal Energy Intake ( Severe),Weight Loss (Severe) Clinical Problem Acute Disease or Injury Related Malnutrition Etiology related to acute illness and inability to meet est nutritional needs Signs/Symptoms as evidenced by 12.5% wt loss x 11 days and <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 Dietitian Recommendations/Changes Will liberalize diet to Consistent Carbohydrate - No Added Salt d/t signs/symptoms of malnutrition Will provide 120 ml glucerna shake w/ meals for increased nutrition if consumed Lab / Micro Data Result Diagrams: 02/02/21 06:31 02/02/21 06:31 Labs: Laboratory Results - last 24 hr 02/01/21 11:15: POC Glucose 248 H 02/01/21 16:37: POC Glucose 172 H 02/01/21 22:46: POC Glucose 410 H 02/02/21 05:53: POC Glucose 229 H 02/02/21 06:31: WBC 14.0 H, RBC 3.28 L, Hgb 8.9 L, Hct 28.8 L, MCV 87.8, MCH 27.1, MCHC 30.9 L, RDW Std Deviation 50.4 H, RDW Coeff of Wade 15.8 H, Plt Count 200, MPV 12.0, Immature Gran % (Auto) 1.700 H, Neut % (Auto) 90.3 H, Lymph % (Auto) 5.4 L, [place] % (Auto) 2.5, Eos % (Auto) 0.0, Baso % (Auto) 0.1, Absolute Neuts (auto) 12.6 H, Absolute Lymphs (auto) 0.75 L, Nucleated RBC % 0 02/02/21 06:31: Sodium 138, Potassium 5.2 H, Chloride 107, Carbon Dioxide 21.0, Anion Gap 10, BUN 73 H, Creatinine 2.72 H, Estim Creat Clear Calc 13.90, Est GFR (MDRD) Af Amer 22 L, Est GFR (MDRD) Non-Af 18 L, BUN/Creatinine Ratio 26.8 H, Glucose 240 H, Calcium 7.7 L 02/02/21 11:13: POC Glucose 150 H Physical Exam Const alert and oriented x3 Constitutional Narrative: very frail and lethargic. Exam Limitations: no limitations HEENT head/scalp atraumatic and moist oral mucous membranes Head and Scalp: normocephalic Eyes PERRL and EOMs intact bilaterally Neck no lymphadenopathy and supple Resp normal air movement, no use of accessory muscles and clear to auscultation bilaterally Resp Narrative: tachypneic, coarse crackles bilaterally. mild wheezing. On 9L of oxygen Cardio regular rate, regular rhythm, S1 normal heart sound, S2 normal heart sound and no murmurs GI normal to inspection, nondistended, normoactive bowel sounds, soft to palpation, non-tender and non-distended Extremity normal to inspection, full ROM, normal capillary refill and no clubbing, cyanosis or edema General Extremity: no tenderness to palpation of joints or extremities Peripheral Pulses: Yes pulses 2+ throughout Skin no rashes or lesions noted General Skin Exam: turgor normal Neuro oriented x3 and CN's II-XII intact bilaterally Sensorium / Orientation: awake and alert Motor Exam: strength 5/5 throughout Psych affect normal Assessment & Plan Assessment/Plan (1) Hyperglycemia: PLAN: * #Acute hypoxic respiratory failure due to COVID 19 pneumonia * now on 9L of oxygen, was as high as 15L. * on decadron. Impaired kidney function precluded her receiving remdesivir and it was also not clear when her symptoms started exactly * will order CT without contrast. * in cumulative positive balance by ~ 3L * give a dose of iv lasix * consult pulmonology due to worsening respiratory status * tested positive for covid on 01/24/2021, will consult ID to see if she is a candidate for baricitinib as her oxygen requirements. * start on IV zosyn empirically * #DVT of left soleus vein: on eliquis; eliquis on hold due to hematuria #Type 2 diabetes mellitus with neuropathy and nephropathy * admitted with hyperglycemia due to noncompliance * now on lantus 10 units BID * ISS. Accuchecks ACHS * #EMANUEL on CKD IV * had bilateral ureteral stents placed in December 2020 * Cr today is 2.72. Having mild hematuria also, so eliquis on hold * follow up with nephrology and urology on outpatient basis. * Baseline Cr is 2-3 * #Hyperkalemia: K is 5.2 today. WIll give kayexalate and trend. * #Hematuria * patient having mild hematuria. eliquis on hold. * she does have bilateral stents in place. * consult urology due to hematuria and patient having stents in place. * #Debility and failure to thrive * PT/OT on board. * Fall precautions. * now agreeable to going to a SNF in [place]. Case management on board. * DVT prophylaxis: SCDs; eliquis on hold due to hematuria. Charges/Coding Visit Charges Inpatient E&M: 69176 Subs Hosp L3
--- NOTE | 2021-02-02 13:54 | CT_ITS ---
STUDY: CT CHEST WITHOUT CONTRAST REASON FOR EXAM: Female, 75 years old. Worsening shortness of breath RADIATION DOSAGE (If Supplied By Facility): CTDIvol = ( 11.96 ) mGy, DLP = ( 364.59 ) mGycm TECHNIQUE: Transaxial imaging was performed without the administration of intravenous contrast material. Multiplanar coronal and sagittal images were reformatted. Individualized dose optimization techniques were used for this CT. COMPARISON: Comparison is made with prior chest radiograph dated 01/29/2021. FINDINGS: There are diffuse bilateral pulmonary infiltrates involving both upper and lower lobes worse in the right hemithorax. There is no demonstrated pleural abnormality. There are calcifications of the coronary arteries. Normal mediastinum. Normal hilar regions. Normal unenhanced pulmonary arteries. Atherosclerotic calcification of the aortic arch. There are multi-level degenerative changes of the thoracic spine. There is no demonstrated abnormality of the visualized upper abdomen. CT/Chest without Contrast IMPRESSION: Diffuse bilateral pulmonary infiltrates. Electronically Signed: Jose David Dao MD at 15:06 EDT , Service support ,
[2021-02-02] MEDS: 0.9% Saline Lock 10 ML Syringe IV ×2 (14:12→22:11)
[2021-02-02] MEDS: Furosemide 40 MG/4 ML Vial IV (14:12)
[2021-02-02] MEDS: Sodium Polystyrene Sulfonate 15 GM/60 ML UDC 30 GM PO (14:12)
[2021-02-02 14:41] LABS: AST(SGOT) 27 U/L (15-37); Alanine Aminotransfer ALT/SGPT 19 U/L (13-56); Albumin, Serum 2.1 g/dL (3.2-5.0); Alkaline Phosphatase 83 U/L (45-117); Bilirubin, Direct 0.11 mg/dL (0.00-0.30); Globulin 4.8 g/dL (2.2-4.2); Protein, Total 6.9 g/dL (6.4-8.2); Troponin-I HS 46 pg/mL (3.0-54.0)
[2021-02-02 14:46] LABS: Procalcitonin 0.33 ng/mL (0.00-0.09)
--- NOTE | 2021-02-02 15:49 | CON.PCM.CC_ITS ---
Assessment & Plan Assessment/Plan (1) COVID-19: (2) Acute respiratory failure with hypoxia: PLAN: RECOMMENDATIONS: 1. Continue to diurese as tolerated 2. Panculture prior to any initiation of baricitinib 3. No echocardiogram needed (EF 60% on 01/20/2021) 4. Encourage incentive spirometer and Acapella 5. BiPAP rescue with sleep 6. Consider repeat lower extremity Doppler IMPRESSIONS: 1. Acute hypoxic respiratory failure following COVID-19 pneumonia Patient has not had any fever, increased secretions or other suggestion of a superimposed bacterial infection. However, would recommend panculture prior to any baricitinib. CT scan of the chest shows bilateral diffuse pulmonary infiltrates, but airways show partial collapse indicating an element of bronchomalacia. This may be secondary to recent steroid therapy. This would respond best to incentive spirometer and Acapella to help with pulmonary toileting. Positive pressure is the treatment of choice. Patient is +3-1/2 L over the course of her hospitalization, so active diuresis would be recommended with a goal of -500 mL to 1 L/day as renal function allows. Patient likely had an element of volume depletion on presentation secondary to osmotic diuresis. Outpatient complete PFT would be helpful in future monitoring. Pulmonary embolism would be a concern given patient's reported noncompliance with Eliquis therapy in the setting of a DVT and continued cessation secondary to hematuria. Could consider a repeat lower extremity Doppler to see if DVT is still present. 2. Acute on chronic kidney disease stage IV/hematuria/history of ureteral stents with nephrolithiasis and hydronephrosis Patient with recent obstruction requiring ureteral stents in December. Creatinine is slightly improved today. Patient has been seen by nephrology and urology previously. Baseline creatinine is around 2. Recommend diuresis as edin erated. This will also help with hyperkalemia. 3. Advanced age/history of noncompl iance/hypertension/hyperlipidemia/diabetes mellitus poorly controlled/depression Complicates care, management, recovery and prognosis. Defer to primary service. Likely okay to continue with baseline medications for now. Blood sugars are marginally controlled and will likely worsen now that Decadron is initiated. HPI Consult Data Date of Consult: 02/02/21 HPI Narrative HPI Narrative: DOMINICK NEELY is a 75 F, with past medical history listed below and recent admission secondary to COVID-19, who presents to [facility] on 01/29/2021 secondary to elevated blood sugars. Patient was recently hospitalized at [facility] secondary to COVID-19 pneumonia. Patient was recommended to go to a shelter facility at discharge, but she adamantly refused. Patient came in with weakness and lethargy and was found to have markedly elevated blood sugars. Patient had not been able to tolerate much p.o. and reportedly had not been compliant with her medications. Patient was discharged on Lantus, but really admitted that she was not compliant. Patient had denied any fevers, chills, nausea, vomiting or diarrhea. In the ER, patient was afebrile and hypertensive at 166/74. Patient was saturating well on room air. Patient's white blood cell count was 4.1 with a hemoglobin of 10.7, potassium of 5.2, BUN of 93 and creatinine of 3. UA showed significant glucosuria, but acetone levels were negative. Chest x-ray showed bilateral infiltrates. Patient was admitted and fluid resuscitated with maintenance IV fluids. Patient has had a significant improvement in renal function and blood sugar control. However, patient's oxygenation continues to worsen. Patient is currently requiring 10 L to maintain saturations. Patient was as high as 13 L earlier today, but did respond to Lasix therapy. Patient has remained afebrile throughout hospital course. Patient states that she has not had a bowel movement in 3 days. Patient is reporting suprapubic pain and belching. Patient did receive medications to induce a bowel movement this morning. Patient reports shortness of breath, but denies any chest pain. Patient has had a cough that is relatively nonproductive. Patient does report a history of smoking, but is never been diagnosed with COPD per her report. Patient does not use supplemental oxygen at baseline. Patient has been seen by nephrology previously with similar type presentation. Review of systems otherwise negative from a constitutional, HEENT, respiratory, cardiovascular, GI, genitourinary, musculoskeletal, skin, neurologic, psychiatric and hematologic system unless stated above. [facility] Medical History (Updated 02/02/21 @ 15:[address] Sekou Fernandez MD) Anxiety Chronic kidney disease, stage 3b Cognitive decline COVID-19 Depression Diabetes Gastric reflux GERD (gastroesophageal reflux disease) High cholesterol History of tobacco use HLD (hyperlipidemia) HTN (hypertension) Hydronephrosis Hypertension Injury of back Nephrolithiasis Non-smoker Pyelonephritis Shortness of breath on exertion Uncontrolled type 2 diabetes mellitus Uses wheelchair Home Medications amlodipine 10 mg PO DAILY 06/05/18 [History Last Taken 08/04/19] atorvastatin 40 mg PO QHS 06/05/18 [History Last Taken 08/04/19] lansoprazole 30 mg PO DAILY 11/03/20 [History Last Taken Unknown] pregabalin 50 mg PO TID #0 cap 11/07/20 [Rx Last Taken 08/04/19] ondansetron 4 mg PO TID PRN 3 Days #10 tab 12/02/20 [Rx Last Taken Unknown] docusate sodium [DOK] 100 mg PO DAILY 12/17/20 [History Last Taken Unknown] hydralazine 100 mg PO TID 12/17/20 [History Last Taken Unknown] acetaminophen [Tylenol] 650 mg PO Q4H PRN PRN #0 tab 01/21/21 [Rx Last Taken Unknown] guaifenesin 20 ml PO Q4H PRN PRN #0 ml 01/21/21 [Rx Last Taken Unknown] Eliquis 10 mg PO BID 01/29/21 [History Last Taken Unknown] aspirin 81 mg PO DAILY 01/29/21 [History Last Taken Unknown] carvedilol 3.125 mg PO BID 01/29/21 [History Last Taken Unknown] dexamethasone [Decadron] 6 mg PO DAILY 01/29/21 [History Last Taken Unknown] insulin glargine [Lantus Solostar U-100 Insulin] 10 unit SUBCUT QPM 01/29/21 [History Last Taken Unknown] insulin lispro [Humalog KwikPen Insulin] See Protocol SUBCUT ACHS 01/29/21 [History Last Taken Unknown] tamsulosin 0.4 mg PO DAILY@1730 01/29/21 [History Last Taken Unknown] Allergy/AdvReac Type Severity Reaction Status Date / Time blue dye Allergy PASS OUT Verified 01/18/21 12:11 Family History Father Diabetes Mother Hypertension Surgical History H/O: hysterectomy History of cholecystectomy History of cystoscopy Social History household members: none Smoking Status: Former smoker alcohol intake: never substance use type: does not use ROS ROS Narrative See HPI Physical Exam Const alert and oriented x3 Constitutional Narrative: very frail and lethargic. Exam Limitations: no limitations HEENT head/scalp atraumatic and moist oral mucous membranes Head and Scalp: normocephalic Eyes PERRL and EOMs intact bilaterally Neck no lymphadenopathy and supple Chest inspection of chest normal Chest: symmetrical chest wall rise; Negative for crepitus Resp normal air movement and no use of accessory muscles Resp Narrative: On 10L of oxygen Effort and Inspection: Negative for stridor Auscultation: rales diffuse, wheezes scattered wheezes and diminished lung sounds; Negative for rhonchi Cardio regular rate, regular rhythm, S1 normal heart sound, S2 normal heart sound and no murmurs GI normal to inspection, nondistended, normoactive bowel sounds, soft to palpation, non-tender and non-distended Extremity normal to inspection, full ROM, normal capillary refill and no clubbing, cyanosis or edema General Extremity: no tenderness to palpation of joints or extremities Peripheral Pulses: Yes pulses 2+ throughout Skin no rashes or lesions noted General Skin Exam: turgor normal Neuro oriented x3 and CN's II-XII intact bilaterally Sensorium / Orientation: awake and alert Motor Exam: strength 5/5 throughout Psych affect normal Medical Records Data Medical Nutrition Assessment Dietitian: Malnutrition Criteria Met Start: 01/30/21 12:06 Freq: Status: Active Protocol: Document 01/30/21 12:06 RIRI (Rec: 01/30/21 12:06 [facility] [id number]) Nutrition Malnutrition Evidence of Malnutrition Exists Yes Malnutrition (severe): Acute Illness/Injury Evidenced By Suboptimal Energy Intake ( Severe),Weight Loss (Severe) Clinical Problem Acute Disease or Injury Related Malnutrition Etiology related to acute illness and inability to meet est nutritional needs Signs/Symptoms as evidenced by 12.5% wt loss x 11 days and <50% 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 Dietitian Recommendations/Changes Will liberalize diet to Consistent Carbohydrate - No Added Salt d/t signs/symptoms of malnutrition Will provide 120 ml glucerna shake w/ meals for increased nutrition if consumed Lab / Micro Data Result Diagrams: 02/02/21 06:31 02/02/21 06:31 Labs: Laboratory Results - last 24 hr 02/01/21 16:37: POC Glucose 172 H 02/01/21 22:46: POC Glucose 410 H 02/02/21 05:53: POC Glucose 229 H 02/02/21 06:31: WBC 14.0 H, RBC 3.28 L, Hgb 8.9 L, Hct 28.8 L, MCV 87.8, MCH 27.1, MCHC 30.9 L, RDW Std Deviation 50.4 H, RDW Coeff of Wade 15.8 H, Plt Count 200, MPV 12.0, Immature Gran % (Auto) 1.700 H, Neut % (Auto) 90.3 H, Lymph % (Auto) 5.4 L, [place] % (Auto) 2.5, Eos % (Auto) 0.0, Baso % (Auto) 0.1, Absolute Neuts (auto) 12.6 H, Absolute Lymphs (auto) 0.75 L, Nucleated RBC % 0 02/02/21 06:31: Sodium 138, Potassium 5.2 H, Chloride 107, Carbon Dioxide 21.0, Anion Gap 10, BUN 73 H, Creatinine 2.72 H, Estim Creat Clear Calc 13.90, Est GFR (MDRD) Af Amer 22 L, Est GFR (MDRD) Non-Af 18 L, BUN/Creatinine Ratio 26.8 H, Glucose 240 H, Calcium 7.7 L 02/02/21 06:31: B-Natriuretic Peptide 372.0 H 02/02/21 11:13: POC Glucose 150 H 02/02/21 14:15: Total Bilirubin 0.40, Direct Bilirubin 0.11, AST 27, ALT 19, Alkaline Phosphatase 83, Troponin I High Sens 46, C-React Prot Ext Range 105.00 H, Total Protein 6.9, Albumin 2.1 L, Globulin 4.8 H 02/02/21 14:15: Procalcitonin 0.33 H Radiology Impression Chest CT 02/02/21 13:54 IMPRESSION: Diffuse bilateral pulmonary infiltrates. Electronically Signed: Jose David Dao MD at 15:06 EDT , Service support , Charges/Coding Visit Charges Inpatient E&M: 75459 Init Hosp L3
--- NOTE | 2021-02-02 16:01 | CON.PCM.ID_ITS ---
Assessment & Plan Assessment/Plan (1) COVID-19: PLAN: Sx started around 01/17. Unvaccinated. Covid (+) 01/24. Now wor sened O2. Ordered bnp, crp, LFT, sputum cx, procalcitonin. Will restart dex as she did not get full 10 days prior. Reviewed EUA and discussed risks/benefits with her, will start baricitinib. Will follow, thank you (2) Acute respiratory failure with hypoxia: HPI Consult Data Date of Consult: 02/02/21 HPI Narrative HPI Narrative: DOMINICK NEELY, is a 75 F who presented 01/29 with around 12 days cough, sputum, headache, aches, progressive dyspnea. Multiple admits this past month. Admitted 01/18 with these symptoms, covid neg, discharged on omnicef. Came back 01/24, covid (+), given dex. At home, glucose was up, worsened dyspnea, came back. Unvaccinated for covid. Now on 13L NC. Full ROS performed and neg except as noted above. COUNT INCLUDES [facility] Medical History Anxiety Chronic kidney disease, stage 3b Cognitive decline COVID-19 Depression Diabetes Gastric reflux GERD (gastroesophageal reflux disease) High cholesterol History of tobacco use HLD (hyperlipidemia) HTN (hypertension) Hydronephrosis Hypertension Injury of back Nephrolithiasis Non-smoker Pyelonephritis Shortness of breath on exertion Uncontrolled type 2 diabetes mellitus Uses wheelchair Home Medications amlodipine 10 mg PO DAILY 06/05/18 [History Last Taken 08/04/19] atorvastatin 40 mg PO QHS 06/05/18 [History Last Taken 08/04/19] lansoprazole 30 mg PO DAILY 11/03/20 [History Last Taken Unknown] pregabalin 50 mg PO TID #0 cap 11/07/20 [Rx Last Taken 08/04/19] ondansetron 4 mg PO TID PRN 3 Days #10 tab 12/02/20 [Rx Last Taken Unknown] docusate sodium [DOK] 100 mg PO DAILY 12/17/20 [History Last Taken Unknown] hydralazine 100 mg PO TID 12/17/20 [History Last Taken Unknown] acetaminophen [Tylenol] 650 mg PO Q4H PRN PRN #0 tab 01/21/21 [Rx Last Taken Unknown] guaifenesin 20 ml PO Q4H PRN PRN #0 ml 01/21/21 [Rx Last Taken Unknown] Eliquis 10 mg PO BID 01/29/21 [History Last Taken Unknown] aspirin 81 mg PO DAILY 01/29/21 [History Last Taken Unknown] carvedilol 3.125 mg PO BID 01/29/21 [History Last Taken Unknown] dexamethasone [Decadron] 6 mg PO DAILY 01/29/21 [History Last Taken Unknown] insulin glargine [Lantus Solostar U-100 Insulin] 10 unit SUBCUT QPM 01/29/21 [History Last Taken Unknown] insulin lispro [Humalog KwikPen Insulin] See Protocol SUBCUT ACHS 01/29/21 [History Last Taken Unknown] tamsulosin 0.4 mg PO DAILY@1730 01/29/21 [History Last Taken Unknown] Allergy/AdvReac Type Severity Reaction Status Date / Time blue dye Allergy PASS OUT Verified 01/18/21 12:11 Family History Father Diabetes Mother Hypertension Surgical History H/O: hysterectomy History of cholecystectomy History of cystoscopy Social History household members: none Smoking Status: Former smoker alcohol intake: never substance use type: does not use Physical Exam Const alert and oriented x3 Constitutional Narrative: ill appearing General Appearance: cooperative HEENT normocephalic and head/scalp atraumatic Eyes PERRL and EOMs intact bilaterally Neck supple and No nodes Resp Auscultation: diminished lung sounds Cardio regular rate and regular rhythm GI normal to inspection, nondistended, normoactive bowel sounds Extremity no clubbing, cyanosis or edema Skin no rashes or lesions noted Neuro CN's II-XII intact bilaterally Medical Records Data Medical Nutrition Assessment Dietitian: Malnutrition Criteria Met Start: 01/30/21 12: 06 Freq: Status: Active Protocol: Document 01/30/21 12:06 RIRI (Rec: 01/30/21 12:06 RIRI [id number]) Nutrition Malnutrition Evidence of Malnutrition Exists Yes Malnutrition (severe): Acute Illness/Injury Evidenced By Suboptimal Energy Intake ( Severe),Weight Loss (Severe) Clinical Problem Acute Disease or Injury Related Malnutrition Etiology related to acute illness and inability to meet est nutritional needs Signs/Symptoms as evidenced by 12.5% wt loss x 11 days and <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 Dietitian Recommendations/Changes Will liberalize diet to Consistent Carbohydrate - No Added Salt d/t signs/symptoms of malnutrition Will provide 120 ml glucerna shake w/ meals for increased nutrition if consumed Lab / Micro Data Result Diagrams: 02/02/21 06:31 02/02/21 06:31 Labs: Laboratory Results - last 24 hr 02/01/21 16:37: POC Glucose 172 H 02/01/21 22:46: POC Glucose 410 H 02/02/21 05:53: POC Glucose 229 H 02/02/21 06:31: WBC 14.0 H, RBC 3.28 L, Hgb 8.9 L, Hct 28.8 L, MCV 87.8, MCH 27.1, MCHC 30.9 L, RDW Std Deviation 50.4 H, RDW Coeff of Wade 15.8 H, Plt Count 200, MPV 12.0, Immature Gran % (Auto) 1.700 H, Neut % (Auto) 90.3 H, Lymph % (Auto) 5.4 L, [place] % (Auto) 2.5, Eos % (Auto) 0.0, Baso % (Auto) 0.1, Absolute Neuts (auto) 12.6 H, Absolute Lymphs (auto) 0.75 L, Nucleated RBC % 0 02/02/21 06:31: Sodium 138, Potassium 5.2 H, Chloride 107, Carbon Dioxide 21.0, Anion Gap 10, BUN 73 H, Creatinine 2.72 H, Estim Creat Clear Calc 13.90, Est GFR (MDRD) Af Amer 22 L, Est GFR (MDRD) Non-Af 18 L, BUN/Creatinine Ratio 26.8 H, Glucose 240 H, Calcium 7.7 L 02/02/21 06:31: B-Natriuretic Peptide 372.0 H 02/02/21 11:13: POC Glucose 150 H 02/02/21 14:15: Total Bilirubin 0.40, Direct Bilirubin 0.11, AST 27, ALT 19, Alkaline Phosphatase 83, Troponin I High Sens 46, C-React Prot Ext Range 105.00 H, Total Protein 6.9, Albumin 2.1 L, Globulin 4.8 H 02/02/21 14:15: Procalcitonin 0.33 H Radiology Impression Chest CT 02/02/21 13:54 IMPRESSION: Diffuse bilateral pulmonary infiltrates. Electronically Signed: Jose David Dao MD at 15:06 EDT , Service support ,
[2021-02-02] MEDS: Tamsulosin HCl 0.4 MG Capsule PO (16:42)
[2021-02-02 16:51] LABS: Bedside Glucose 357 mg/dL (70-110)
[2021-02-02] MEDS: Atorvastatin Calcium 40 MG Tablet PO (22:11)
[2021-02-02 22:46] LABS: Bedside Glucose 271 mg/dL (70-110)
[2021-02-03] VITALS (15 sets, daily range): BP systolic 134–159; BP diastolic 55–114; PULSE 67–83; RESP 18–24; TEMP 36.2–36.8; O2SAT 90–94
--- NOTE | 2021-02-03 03:21 | EKG12_ITS ---
Test Reason : CHEST PRESSURE Blood Pressure : / mmHG Vent. Rate : 069 BPM Atrial Rate : 069 BPM P-R Int : 166 ms QRS Dur : 122 ms QT Int : 444 ms P-R-T Axes : 083 -17 037 degrees QTc Int : 475 ms Normal sinus rhythm Right bundle branch block Abnormal ECG Confirmed by GILBERT ROWELL, BOB ([id number]), senior technical editor GULSHAN TRAYLOR ([id number]) on 02/04/2021 9:34:45 AM Referred By: JOSÉ Confirmed By:BOB HUNT MD
[2021-02-03] MEDS: Albuterol Sulfate 8 gm Inhaler (60 puffs) 1 PUFF INHALATION ×4 (04:03→20:58)
[2021-02-03] MEDS: Insulin Lispro 100 UNIT/ML INSULN.PEN SC ×4 (06:15→20:58)
[2021-02-03] MEDS: hydrALAZINE 50 MG Tablet 100 MG PO ×3 (06:16→20:56)
[2021-02-03] MEDS: Pregabalin 50 MG Capsule PO ×3 (06:16→20:57)
[2021-02-03 06:30] LABS: Bedside Glucose 178 mg/dL (70-110)
[2021-02-03 07:29] LABS: Hematocrit 29.1 % (37-47); Hemoglobin 9.1 g/dL (12.0-15.0); Mean Corp Hgb Conc 31.3 g/dL (32-36); Mean Corpuscular Hgb 27.2 pg (27.0-32.0); Mean Corpuscular Volume 86.9 fL (81-99); Mean Platelet Vol. 12.1 fl (6.2-12.0); Platelet Count 210 K/mm3 (150-450); RBC Distribution Width CV 15.9 % (11.6-14.6); RBC Distribution Width SD 50.3 fl (35.1-43.9); Red Blood Count 3.35 M/mm3 (4.2-5.4)
[2021-02-03 07:35] LABS: Scan Indicated on CBC? Y/N NO
[2021-02-03 07:59] LABS: ALB/GLOB Ratio 0.4 RATIO (0.9-2.4); AST(SGOT) 24 U/L (15-37); Alanine Aminotransfer ALT/SGPT 17 U/L (13-56); Albumin, Serum 1.9 g/dL (3.2-5.0); Alkaline Phosphatase 75 U/L (45-117); Anion Gap 11 (5-15); BUN 76 mg/dL (7-18); BUN/Creat Ratio 27.4 RATIO (10-20); Calcium,Total 7.7 mg/dL (8.5-10.1); Chloride 107 mmol/L (98-107); Creatinine, Serum 2.77 mg/dL (0.55-1.02); EST Glomerular Filtration Rate 18 mL/min (>60); Est Glom Filt Rate - Afr Amer 22 mL/min (>60); Estimated Creatinine Clearance 13.65 ml/min; Globulin 4.6 g/dL (2.2-4.2); Glucose 188 mg/dL (74-106); Potassium 5.3 mmol/L (3.5-5.1); Protein, Total 6.5 g/dL (6.4-8.2); Sodium Level 139 mmol/L (136-145)
[2021-02-03] MEDS: Lansoprazole 15 MG Capsule.DR 30 MG PO (08:55)
[2021-02-03] MEDS: guaiFENesin 10 ML UDC (200MG/10ML) 20 ML PO ×3 (08:55→20:56)
[2021-02-03] MEDS: amLODIPine 10 MG Tablet PO (08:55)
[2021-02-03] MEDS: Carvedilol 3.125 MG TABLET PO ×2 (08:56→20:57)
[2021-02-03] MEDS: Acetaminophen 325 MG Tablet 650 MG PO ×2 (08:56→20:57)
[2021-02-03] MEDS: dexAMETHasone 4 MG Tablet 6 MG PO (08:56)
[2021-02-03] MEDS: NYSTATIN 500,000 UNIT/5 ML UDC 500000 UNIT PO ×4 (08:56→20:56)
[2021-02-03] MEDS: Aspirin 81 MG TAB.CHEW PO (08:56)
[2021-02-03] MEDS: guaiFENesin 600 MG Tablet PO ×2 (08:56→20:57)
--- NOTE | 2021-02-03 10:16 | PN.CC_ITS ---
Assessment & Plan Assessment/Plan (1) COVID-19: (2) Acute respiratory failure with hypoxia: PLAN: RECOMMENDATIONS: 1. Continue to diurese as tolerated. Hold on Lasix today 2. Panculture prior to any initiation of baricitinib 3. No echocardiogram needed (EF 60% on 01/20/2021) 4. Encourage incentive spirometer and Acapella 5. BiPAP rescue with sleep 6. Consider repeat lower extremity Doppler if oxygenation worsens acutely IMPRESSIONS: 1. Acute hypoxic respiratory failure following COVID-19 pneumonia Patient has not had any fever, increased secretions or other suggestion of a superimposed bacterial infection. However, would recommend panculture prior to any baricitinib. CT scan of the chest shows bilateral diffuse pulmonary infiltrates, but airways show partial collapse indicating an element of bronchomalacia. This may be secondary to recent steroid therapy. This would respond best to incentive spirometer and Acapella to help with pulmonary toileting. Patient appears to have responded to diuretic therapy yesterday. Renal function is relatively stable despite diuresis. This makes PE less likely. However, if patient worsens, lower extremity Doppler could evaluate if DVT still present. 2. Acute on chronic kidney disease stage IV/hematuria/history of ureteral stents with nephrolithiasis and hydronephrosis Patient with recent obstruction requiring ureteral stents in December. Creatinine is stable today despite receiving diuretics yesterday. Patient has been seen by nephrology and urology previously. Baseline creatinine is around 2. Recommend diuresis as tolerated. This will also help with hyperkalemia. 3. Advanced age/history of noncomplia nce/hypertension/hyperlipidemia/diabetes mellitus poorly controlled/depression Complicates care, management, recovery and prognosis. Defer to primary service. Likely okay to continue with baseline medications for now. Blood sugars are marginally controlled and will likely worsen now that Decadron is initiated. Subjective Subjective Patient did well overnight. No acute issues were reported. Patient did have incontinence, so I and O's are not accurate. Patient subjectively feels slightly improved compared to yesterday. Patient does not appear to have had a weight taken today. Objective Data Objective Data Vital Signs: Vital Signs Temp Pulse Resp BP Pulse Ox 36.7 C 83 19 H 134/114 H 90 02/03/21 08:55 02/03/21 08:55 02/03/21 08:55 02/03/21 08:55 02/03/21 09:37 Oxygen Flow Rate (L/min) 9 Oxygen Delivery Method Nasal Cannula Weight: 59 kg Body Mass Index (BMI) 24.5 Intake & Output: Intake and Output for Last 24 Hours 02/01/21 02/02/21 02/03/21 23:59 23:59 23:59 Intake Total 1640 / 1640 1099.25 / 1099.25 87.83 / 87.83 Output Total 2100 / 2100 700 / 700 Balance -460 / -460 399.25 / 399.25 87.83 / 87.83 Medical Nutrition Assessment Dietitian: Malnutrition Criteria Met Start: 01/30/21 12:06 Freq: Status: Active Protocol: Document 01/30/21 12:06 RIRI (Rec: 01/30/21 12:06 [facility] [id number]) Nutrition Malnutrition Evidence of Malnutrition Exists Yes Malnutrition (severe): Acute Illness/Injury Evidenced By Suboptimal Energy Intake ( Severe),Weight Loss (Severe) Clinical Problem Acute Disease or Injury Related Malnutrition Etiology related to acute illness and inability to meet est nutritional needs Signs/Symptoms as evidenced by 12.5% wt loss x 11 days and <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1 L, Globulin 4.8 H 02/02/21 14:15: Procalcitonin 0.33 H 02/02/21 16:40: POC Glucose 357 H 02/02/21 22:09: POC Glucose 271 H 02/03/21 06:14: POC Glucose 178 H 02/03/21 07:00: WBC 14.0 H, RBC 3.35 L, Hgb 9.1 L, Hct 29.1 L, MCV 86.9, MCH 27.2, MCHC 31.3 L, RDW Std Deviation 50.3 H, RDW Coeff of Wade 15.9 H, Plt Count 210, MPV 12.1 H 02/03/21 07:00: Sodium 139, Potassium 5.3 H, Chloride 107, Carbon Dioxide 21.0, Anion Gap 11, BUN 76 H, Creatinine 2.77 H, Estim Creat Clear Calc 13.65, Est GFR (MDRD) Af Amer 22 L, Est GFR (MDRD) Non-Af 18 L, BUN/Creatinine Ratio 27.4 H, Glucose 188 H, Calcium 7.7 L, Total Bilirubin 0.40, AST 24, ALT 17, Alkaline Phosphatase 75, Total Protein 6.5, Albumin 1.9 L, Globulin 4.6 H, Albumin/Globulin Ratio 0.4 L Radiography Diagnostic Testing: Radiology Impression Chest CT 02/02/21 13:54 IMPRESSION: Diffuse bilateral pulmonary infiltrates. Electronically Signed: Jose David Dao MD at 15:06 EDT , Service support , Physical Exam Const alert and oriented x3 Constitutional Narrative: very frail and lethargic. Exam Limitations: no limitations HEENT head/scalp atraumatic and moist oral mucous membranes Head and Scalp: normocephalic Eyes PERRL and EOMs intact bilaterally Neck no lymphadenopathy and supple Chest inspection of chest normal Chest: symmetrical chest wall rise; Negative for crepitus Resp normal air movement and no use of accessory muscles Resp Narrative: On 8L of oxygen Effort and Inspection: Negative for stridor Auscultation: rales diffuse, wheezes scattered wheezes and diminished lung so unds; Negative for rhonchi Cardio regular rate, regular rhythm, S1 normal heart sound, S2 normal heart sound and no murmurs GI normal to inspection, nondistended, normoactive bowel sounds, soft to palpation, non-tender and non-distended Extremity normal to inspection, full ROM, normal capillary refill and no clubbing, cyanosis or edema General Extremity: no tenderness to palpation of joints or extremities Peripheral Pulses: Yes pulses 2+ throughout Skin no rashes or lesions noted General Skin Exam: turgor normal Neuro oriented x3 and CN's II-XII intact bilaterally Sensorium / Orientation: awake and alert Motor Exam: strength 5/5 throughout Psych affect normal Charges/Coding Visit Charges Inpatient E&M: 29649 Subs Hosp L2
--- NOTE | 2021-02-03 11:36 | PCM.PN.ID ---
Physical Exam Narrative Feeling a little better, no fever Const alert General Appearance: cooperative Resp Auscultation: diminished lung sounds Cardio regular rate and regular rhythm GI normal to inspection, nondistended, normoactive bowel sounds Skin no rashes or lesions noted ID ID: Route of nutrition/ use of supplements: [] Nutritional Intake: [] IV Site: [] Alexandre Catheter: [] Assessment & Plan Assessment/Plan (1) COVID-19: PLAN: Sx started around 01/17. Unvaccinated. Covid (+) 01/24. Developed worsened O2. Cont dex as she did not get full 10 days prior. On baricitinib. O2 improved this AM. Will follow (2) Acute respiratory failure with hypoxia:
[2021-02-03] MEDS: Ondansetron 4 MG/2 ML Vial IV (12:05)
[2021-02-03] MEDS: 0.9% Saline Lock 10 ML Syringe IV (12:05)
[2021-02-03 12:10] LABS: Bedside Glucose 214 mg/dL (70-110)
[2021-02-03] MEDS: Tamsulosin HCl 0.4 MG Capsule PO (17:04)
[2021-02-03 17:11] LABS: Bedside Glucose 231 mg/dL (70-110)
--- NOTE | 2021-02-03 18:58 | PCM.PN.HOSP ---
Subjective Subjective Patient was seen and examined today, she complains of shortness of breath although at rest the patient has a pulse ox of 93% on 8 L. Patient does not complain of any fevers or chills Objective Data Objective Data Vital Signs: Vital Signs Temp Pulse Resp BP Pulse Ox 97.2 F L 71 20 H 142/64 H 93 02/03/21 14:45 02/03/21 15:00 02/03/21 14:45 02/03/21 14:45 02/03/21 14:45 Oxygen Flow Rate (L/min) 8 Oxygen Delivery Method Nasal Cannula Weight: 59 kg Body Mass Index (BMI) 24.5 Intake & Output: Intake and Output for Last 24 Hours 02/01/21 02/02/21 02/03/21 23:59 23:59 23:59 Intake Total 1640 / 1640 1099.25 / 1099.25 624.33 / 624.33 Output Total 2100 / 2100 700 / 700 150 / 150 Balance -460 / -460 399.25 / 399.25 474.33 / 474.33 Medical Nutrition Assessment Dietitian: Malnutrition Criteria Met Start: 01/30/21 12:06 Freq: Status: Active Protocol: Document 02/03/21 14:37 RMA (Rec: 02/03/21 14:37 RMA [id number]) Nutrition Malnutrition Evidence of Malnutrition Exists Yes Malnutrition (severe): Acute Illness/Injury Evidenced By Suboptimal Energy Intake ( Severe),Weight Loss (Severe) Clinical Problem Acute Disease or Injury Related Malnutrition Etiology Severe protein/calorie malnutrition in the context of acute illness related to inadequate oral intake/ inability to meet est nutritional needs Signs/Symptoms as evidenced by 12.5% wt loss x 11 days, <50% po intake x >5 days prior to admission and Po meeting less than 50% estimated nutrition needs. 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 Dietitian Recommendations/Changes Will liberalize diet to Carbohydrate-Controlled/Sodium -Restricted (no fat restriction/cardiac) d/t signs /symptoms of malnutrition; monitor need to restrict K+/ protein given renal status. Continue 120 ml vanilla glucerna shake w/ meals for increased nutrition if consumed. Lab / Micro Data Result Diagrams: 02/03/21 07:00 02/03/21 07:00 Labs: Laboratory Results - last 24 hr 02/02/21 22:09: POC Glucose 271 H 02/03/21 06:14: POC Glucose 178 H 02/03/21 07:00: WBC 14.0 H, RBC 3.35 L, Hgb 9.1 L, Hct 29.1 L, MCV 86.9, MCH 27.2, MCHC 31.3 L, RDW Std Deviation 50.3 H, RDW Coeff of Wade 15.9 H, Plt Count 210, MPV 12.1 H 02/03/21 07:00: Sodium 139, Potassium 5.3 H, Chloride 107, Carbon Dioxide 21.0, Anion Gap 11, BUN 76 H, Creatinine 2.77 H, Estim Creat Clear Calc 13.65, Est GFR (MDRD) Af Amer 22 L, Est GFR (MDRD) Non-Af 18 L, BUN/Creatinine Ratio 27.4 H, Glucose 188 H, Calcium 7.7 L, Total Bilirubin 0.40, AST 24, ALT 17, Alkaline Phosphatase 75, Total Protein 6.5, Albumin 1.9 L, Globulin 4.6 H, Albumin/Globulin Ratio 0.4 L 02/03/21 12:00: POC Glucose 214 H 02/03/21 17:03: POC Glucose 231 H Micro: Microbiology 02/02/21 18:20 Urine Catheter - Catheter Urine Culture - Preliminary Alpha hemolytic organism Gram positive organism Physical Exam Const alert, oriented x3 and no apparent distress Constitutional Narrative: Patient appears frail and older than her stated age General Appearance: cooperative, well kempt and well developed Orientation / Consciousness: awake, oriented to person, oriented to place and oriented to time HEENT normocephalic, head/scalp atraumatic and moist oral mucous membranes Head and Scalp: normocephalic Eyes PERRL, EOMs intact bilaterally and conjunctivae normal Neck nuchal rigidity, supple, no JVD, thyroid normal and no carotid bruits General: trachea midline Resp normal respiratory effort, no retractions, no use of accessory muscles and clear to auscultation bilaterally Auscultation: Negative for rales, rhonchi or wheezes Cardio regular rate, regular rhythm, S1 normal heart sound, S2 normal heart sound, no murmurs, no rub and no gallops GI normal to inspection, nondistended, normoactive bowel sounds, soft to palpation, non-tender and non-distended Extremity no clubbing, cyanosis or edema Skin no rashes or lesions noted General Skin Exam: no breakdown Neuro oriented x3, CN's II-XII intact bilaterally, no focal motor deficits and no sensory deficits noted Sensorium / Orientation: awake and alert Speech: speech normal Psych thought process normal and affect normal Assessment & Plan Assessment/Plan (1) COVID-19: PLAN: 1. COVID-19 pneumonia-patient is currently on baricitinib and dexamethasone. She is currently on empiric Zosyn, patient was not given remdesivir due to her renal function and window of treatment was surpassed. #2 acute hypoxic respiratory failure secondary to #1-pulse ox will be monitored #3 generalized debility-PT and OT will see the patient, at this time patient refuses to go to a correction facility. #4 noncompliance with medical regimen-it is not clear that the patient is taking her medications properly at home, she refuses to go to a correction facility at this time. #5 chronic kidney disease stage IIIb secondary to type 2 diabetes #6 type 2 diabetes-continue to monitor blood sugars #7 severe protein and caloric malnutrition-nutritional services is seeing patient Charges/Coding Visit Charges Inpatient E&M: 42377 Subs Hosp L2
[2021-02-03] MEDS: Atorvastatin Calcium 40 MG Tablet PO (20:57)
[2021-02-03 21:11] LABS: Bedside Glucose 235 mg/dL (70-110)
--- NOTE | 2021-02-03 22:24 | NURSING ---
Gave report to Kenna WHALEY
[2021-02-04] VITALS (16 sets, daily range): BP systolic 124–175; BP diastolic 61–80; PULSE 70–81; RESP 16–20; TEMP 36.3–37; O2SAT 90–98
[2021-02-04] MEDS: Pregabalin 50 MG Capsule PO ×3 (06:04→22:04)
[2021-02-04] MEDS: hydrALAZINE 50 MG Tablet 100 MG PO ×3 (06:04→22:04)
[2021-02-04 06:20] LABS: Bedside Glucose 132 mg/dL (70-110)
--- NOTE | 2021-02-04 06:45 | CASEMGMT ---
Late Entry: Note from Tuesday02-02-21 Natalia at [facility] did call SW back and say they can take patient. However, they prefer she is on 5L or less if possible. SW will follow for d/c to [facility]. Yaneli Ward FILLER SHREDDER HELPERSerenity BANEGAS
[2021-02-04 07:28] LABS: Hematocrit 28.7 % (37-47); Hemoglobin 8.9 g/dL (12.0-15.0); Mean Corpuscular Hgb 27.5 pg (27.0-32.0); Mean Corpuscular Volume 88.6 fL (81-99); Platelet Count 247 K/mm3 (150-450); RBC Distribution Width SD 51.8 fl (35.1-43.9); Red Blood Count 3.24 M/mm3 (4.2-5.4); White Blood Count 18.2 K/mm3 (4.4-11.0)
[2021-02-04 07:42] LABS: ALB/GLOB Ratio 0.4 RATIO (0.9-2.4); AST(SGOT) 26 U/L (15-37); Alanine Aminotransfer ALT/SGPT 17 U/L (13-56); Alkaline Phosphatase 78 U/L (45-117); Anion Gap 9 (5-15); BUN 78 mg/dL (7-18); BUN/Creat Ratio 27.1 RATIO (10-20); Calcium,Total 7.7 mg/dL (8.5-10.1); Chloride 111 mmol/L (98-107); Creatinine, Serum 2.88 mg/dL (0.55-1.02); EST Glomerular Filtration Rate 17 mL/min (>60); Est Glom Filt Rate - Afr Amer 21 mL/min (>60); Estimated Creatinine Clearance 13.13 ml/min; Globulin 4.7 g/dL (2.2-4.2); Glucose 157 mg/dL (74-106); Potassium 5.1 mmol/L (3.5-5.1); Protein, Total 6.7 g/dL (6.4-8.2); Sodium Level 141 mmol/L (136-145)
[2021-02-04] MEDS: Lansoprazole 15 MG Capsule.DR 30 MG PO (10:10)
[2021-02-04] MEDS: amLODIPine 10 MG Tablet PO (10:10)
[2021-02-04] MEDS: Aspirin 81 MG TAB.CHEW PO (10:11)
[2021-02-04] MEDS: NYSTATIN 500,000 UNIT/5 ML UDC 500000 UNIT PO ×4 (10:11→22:03)
[2021-02-04] MEDS: guaiFENesin 600 MG Tablet PO ×2 (10:11→22:04)
[2021-02-04] MEDS: Carvedilol 3.125 MG TABLET PO ×2 (10:11→22:04)
[2021-02-04] MEDS: dexAMETHasone 4 MG Tablet 6 MG PO (10:11)
[2021-02-04] MEDS: Insulin Lispro 100 UNIT/ML INSULN.PEN SC ×3 (11:12→22:08)
[2021-02-04 11:36] LABS: Bedside Glucose 205 mg/dL (70-110)
--- NOTE | 2021-02-04 11:37 | PN.CC_ITS ---
Assessment & Plan Assessment/Plan (1) COVID-19: (2) Acute respiratory failure with hypoxia: PLAN: RECOMMENDATIONS: 1. Continue to diurese as tolerated. Hold on Lasix today given renal func tion 2. Out of bed as tolerated 3. No echocardiogram needed (EF 60% on 01/20/2021) 4. Encourage incentive spirometer and Acapella 5. BiPAP rescue with sleep 6. Continue to work with physical therapy. IMPRESSIONS: 1. Acute hypoxic respiratory failure following COVID-19 pneumonia Patient has not had any fever, increased secretions or other suggestion of a superimposed bacterial infection. However, would recommend panculture prior to any baricitinib. CT scan of the chest shows bilateral diffuse pulmonary infiltrates, but airways show partial collapse indicating an element of bronchomalacia. This may be secondary to recent steroid therapy. This would respond best to incentive spirometer and Acapella to help with pulmonary t oileting. Patient appears to have responded to diuretic therapy previously, but renal function has not responded well. This makes PE less likely. However, if patient worsens, lower extremity Doppler could evaluate if DVT still present. 2. Acute on chronic kidney disease stage IV/hematuria/history of ureteral stents with nephrolithiasis and hydronephrosis Patient with recent obstruction requiring ureteral stents in December. Creatinine is stable today despite receiving diuretics yesterday. Patient has been seen by nephrology and urology previously. Baseline creatinine is around 2. Recommend diuresis as tolerated. This will also help with hyperkalemia. 3. Advanced age/history of noncompliance/hypertension/hyperlipidemia/diabetes mellitus poorly controlled/depression Complicates care, management, recovery and prognosis. Defer to primary service. Likely okay to continue with baseline medications for now. Blood sugars are marginally controlled and patient appears to be tolerating Decadron. Subjective Subjective Patient continues to do okay. Nursing reports patient is not very motivated to use incentive spirometer or get out of bed. Patient continues to report shortness of breath and a cough that is nonproductive. Patient did cough when I was present and this sounded moist. Objective Data Objective Data Vital Signs: Vital Signs Temp Pulse Resp BP Pulse Ox 36.3 C L 77 20 H 159/63 H 93 02/04/21 08:16 02/04/21 08:16 02/04/21 08:16 02/04/21 08:16 02/04/21 08:16 Oxygen Flow Rate (L/min) 10 Oxygen Delivery Method Nasal Cannula Weight: 59 kg Body Mass Index (BMI) 24.5 Intake & Output: Intake and Output for Last 24 Hours 02/02/21 02/03/21 02/04/21 23:59 23:59 23:59 Intake Total 1099.25 / 1099.25 624.33 / 624.33 530 / 530 Output Total 700 / 700 150 / 150 225 / 225 Balance 399.25 / 399.25 474.33 / 474.33 305 / 305 Medical Nutrition Assessment Dietitian: Malnutrition Criteria Met Start: 01/30/21 12:06 Freq: Status: Active Protocol: Document 02/03/21 14:37 RMA (Rec: 02/03/21 14:37 RMA [id number]) Nutrition Malnutrition Evidence of Malnutrition Exists Yes Malnutrition (severe): Acute Illness/Injury Evidenced By Suboptimal Energy Intake ( Severe),Weight Loss (Severe) Clinical Problem Acute Disease or Injury Related Malnutrition Etiology Severe protein/calorie malnutrition in the context of acute illness related to inadequate oral intake/ inability to meet est nutritional needs Signs/Symptoms as evidenced by 12.5% wt loss x 11 days, <50% po intake x >5 days prior to admission and Po meeting less than 50% estimated nutrition needs. 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 Dietitian Recommendations/Changes Will liberalize diet to Carbohydrate-Controlled/Sodium -Restricted (no fat restriction/cardiac) d/t signs /symptoms of malnutrition; monitor need to restrict K+/ protein given renal status. Continue 120 ml vanilla glucerna shake w/ meals for increased nutrition if consumed. Lab / Micro Data Result Diagrams: 02/04/21 06:54 02/04/21 06:54 Labs: Laboratory Results - last 24 hr 02/03/21 12:00: POC Glucose 214 H 02/03/21 17:03: POC Glucose 231 H 02/03/21 20:51: POC Glucose 235 H 02/04/21 06:02: POC Glucose 132 H 02/04/21 06:54: WBC 18.2 H, RBC 3.24 L, Hgb 8.9 L, Hct 28.7 L, MCV 88.6, MCH 27.5, MCHC 31.0 L, RDW Std Deviation 51.8 H, RDW Coeff of Wade 16.0 H, Plt Count 247, MPV 12.0 02/04/21 06:54: Sodium 141, Potassium 5.1, Chloride 111 H, Carbon Dioxide 21.0, Anion Gap 9, BUN 78 H, Creatinine 2.88 H, Estim Creat Clear Calc 13.13, Est GFR (MDRD) Af Amer 21 L, Est GFR (MDRD) Non-Af 17 L, BUN/Creatinine Ratio 27.1 H, Glucose 157 H, Calcium 7.7 L, Total Bilirubin 0.50, AST 26, ALT 17, Alkaline P hosphatase 78, Total Protein 6.7, Albumin 2.0 L, Globulin 4.7 H, Albumin/Globulin Ratio 0.4 L 02/04/21 11:08: POC Glucose 205 H Micro: Microbiology 02/02/21 18:20 Urine Catheter - Catheter Urine Culture - Preliminary Alpha hemolytic organism Gram positive organism Physical Exam Const alert and oriented x3 Constitutional Narrative: very frail and lethargic. Exam Limitations: no limitations HEENT head/scalp atraumatic and moist oral mucous membranes Head and Scalp: normocephalic Eyes PERRL and EOMs intact bilaterally Neck no lymphadenopathy and supple Chest inspection of chest normal Chest: symmetrical chest wall rise; Negative for crepitus Resp normal air movement and no use of accessory muscles Resp Narrative: On 7L of oxygen Effort and Inspection: Negative for stridor Auscultation: rales diffuse, wheezes scattered wheezes and diminished lung sounds; Negative for rhonchi Cardio regular rate, regular rhythm, S1 normal heart sound, S2 normal heart sound and no murmurs GI normal to inspection, nondistended, normoactive bowel sounds, soft to palpation, non-tender and non-distended Extremity normal to inspection, full ROM, normal capillary refill and no clubbing, cyanosis or edema General Extremity: no tenderness to palpation of joints or extremities Peripheral Pulses: Yes pulses 2+ throughout Skin no rashes or lesions noted General Skin Exam: turgor normal Neuro oriented x3 and CN's II-XII intact bilaterally Sensorium / Orientation: awake and alert Motor Exam: strength 5/5 throughout Psych affect normal Charges/Coding Visit Charges Inpatient E&M: 79528 Subs Hosp L2
[2021-02-04 16:31] LABS: Bedside Glucose 247 mg/dL (70-110)
[2021-02-04] MEDS: Tamsulosin HCl 0.4 MG Capsule PO (17:48)
--- NOTE | 2021-02-04 18:51 | PCM.PN.HOSP ---
Subjective Subjective Patient was seen and examined today, her urine output has been low today but I am wary about giving the patient fluids due to her COVID-19 disease. Patient is currently on 10 L of oxygen via nasal cannula. Objective Data Objective Data Vital Signs: Vital Signs Temp Pulse Resp BP Pulse Ox 98.1 F 79 20 H 157/61 H 94 02/04/21 16:19 02/04/21 16:19 02/04/21 16:19 02/04/21 16:19 02/04/21 16:19 Oxygen Flow Rate (L/min) 10 Oxygen Delivery Method Nasal Cannula Weight: 59 kg Body Mass Index (BMI) 24.5 Intake & Output: Intake and Output for Last 24 Hours 02/02/21 02/03/21 02/04/21 23:59 23:59 23:59 Intake Total 1099.25 / 1099.25 624.33 / 624.33 815 / 815 Output Total 700 / 700 150 / 150 250 / 250 Balance 399.25 / 399.25 474.33 / 474.33 565 / 565 Medical Nutrition Assessment Dietitian: Malnutrition Criteria Met Start: 01/30/21 12:06 Freq: Status: Active Protocol: Document 02/03/21 14:37 RMA (Rec: 02/03/21 14:37 RMA [id number]) Nutrition Malnutrition Evidence of Malnutrition Exists Yes Malnutrition (severe): Acute Illness/Injury Evidenced By Suboptimal Energy Intake ( Severe),Weight Loss (Severe) Clinical Problem Acute Disease or Injury Related Malnutrition Etiology Severe protein/calorie malnutrition in the context of acute illness related to inadequate oral intake/ inability to meet est nutritional needs Signs/Symptoms as evidenced by 12.5% wt loss x 11 days, <50% po intake x >5 days prior to admission and Po meeting less than 50% estimated nutrition needs. 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 Dietitian Recommendations/Changes Will liberalize diet to Carbohydrate-Controlled/Sodium -Restricted (no fat restriction/cardiac) d/t signs /symptoms of malnutrition; monitor need to restrict K+/ protein given renal status. Continue 120 ml vanilla glucerna shake w/ meals for increased nutrition if consumed. Lab / Micro Data Result Diagrams: 02/04/21 06:54 02/04/21 06:54 Labs: Laboratory Results - last 24 hr 02/03/21 20:51: POC Glucose 235 H 02/04/21 06:02: POC Glucose 132 H 02/04/21 06:54: WBC 18.2 H, RBC 3.24 L, Hgb 8.9 L, Hct 28.7 L, MCV 88.6, MCH 27.5, MCHC 31.0 L, RDW Std Deviation 51.8 H, RDW Coeff of Wade 16.0 H, Plt Count 247, MPV 12.0 02/04/21 06:54: Sodium 141, Potassium 5.1, Chloride 111 H, Carbon Dioxide 21.0, Anion Gap 9, BUN 78 H, Creatinine 2.88 H, Estim Creat Clear Calc 13.13, Est GFR (MDRD) Af Amer 21 L, Est GFR (MDRD) Non-Af 17 L, BUN/Creatinine Ratio 27.1 H, Glucose 157 H, Calcium 7.7 L, Total Bilirubin 0.50, AST 26, ALT 17, Alkaline Phosphatase 78, Total Protein 6.7, Albumin 2.0 L, Globulin 4.7 H, Albumin/Globulin Ratio 0.4 L 02/04/21 11:08: POC Glucose 205 H 02/04/21 16:17: POC Glucose 247 H Micro: Microbiology 02/02/21 18:20 Urine Catheter - Catheter Urine Culture - Preliminary Alpha hemolytic organism Gram positive organism Physical Exam Const alert, oriented x3 and no apparent distress Constitutional Narrative: Patient appears older than her stated age, she appears frail General Appearance: cooperative, well kempt and well developed Orientation / Consciousness: awake, oriented to person, oriented to place and oriented to time HEENT normocephalic, head/scalp atraumatic and moist oral mucous membranes Head and Scalp: normocephalic Eyes PERRL, EOMs intact bilaterally and conjunctivae normal Neck nuchal rigidity, supple, no JVD, thyroid normal and no carotid bruits General: trachea midline Resp normal respiratory effort, no retractions, no use of accessory muscles and clear to auscultation bilaterally Auscultation: Negative for rales, rhonchi or wheezes Cardio regular rate, regular rhythm, S1 normal heart sound, S2 normal heart sound, no murmurs, no rub and no gallops GI normal to inspection, nondistended, normoactive bowel sounds, soft to palpation, non-tender and non-distended Extremity no clubbing, cyanosis or edema Skin no rashes or lesions noted General Skin Exam: no breakdown Neuro CN's II-XII intact bilaterally, no focal motor deficits and no sensory deficits noted Sensorium / Orientation: awake and alert Speech: speech normal Psych thought process normal Psych Narrative: Patient has a flat affect Assessment & Plan Assessment/Plan (1) COVID-19: PLAN: 1. COVID-19 pneumonia-patient is currently on baricitinib and dexamethasone. She is currently on empiric Zosyn, patient was not given remdesivir due to her renal function and window of treatment was surpassed. #2 acute hypoxic respiratory failure secondary to #1-pulse ox will be monitored #3 generalized debility-PT and OT will see the patient, at this time patient refuses to go to a intermediate facility. #4 noncompliance with medical regimen-it is not clear that the patient is taking her medications properly at home, she refuses to go to a intermediate facility at this time. #5 chronic kidney disease stage IIIb secondary to type 2 diabetes, labs will be monitored #6 type 2 diabetes-continue to monitor blood sugars #7 severe protein and caloric malnutrition-nutritional services is seeing patient Charges/Coding Visit Charges Inpatient E&M: 20041 Subs Hosp L2
[2021-02-04] MEDS: Ondansetron 4 MG/2 ML Vial IV (22:03)
[2021-02-04] MEDS: Atorvastatin Calcium 40 MG Tablet PO (22:04)
[2021-02-04 22:35] LABS: Bedside Glucose 277 mg/dL (70-110)
[2021-02-05] VITALS (19 sets, daily range): BP systolic 122–179; BP diastolic 53–98; PULSE 66–82; RESP 17–20; TEMP 35.8–37; O2SAT 91–95
[2021-02-05] MEDS: guaiFENesin 10 ML UDC (200MG/10ML) 20 ML PO ×3 (02:22→12:10)
[2021-02-05] MEDS: hydrALAZINE 20 MG/ML Vial 10 MG IV (02:25)
[2021-02-05] MEDS: Pregabalin 50 MG Capsule PO ×3 (05:41→21:35)
[2021-02-05] MEDS: hydrALAZINE 50 MG Tablet 100 MG PO ×3 (05:42→21:34)
[2021-02-05] MEDS: Albuterol Sulfate 8 gm Inhaler (60 puffs) 1 PUFF INHALATION ×3 (05:43→19:59)
[2021-02-05] MEDS: Insulin Lispro 100 UNIT/ML INSULN.PEN SC ×3 (06:46→21:26)
[2021-02-05 07:00] LABS: Bedside Glucose 170 mg/dL (70-110)
[2021-02-05 07:14] LABS: Hematocrit 28.1 % (37-47); Hemoglobin 8.5 g/dL (12.0-15.0); Mean Corp Hgb Conc 30.2 g/dL (32-36); Mean Corpuscular Hgb 27.1 pg (27.0-32.0); Mean Corpuscular Volume 89.5 fL (81-99); Platelet Count 237 K/mm3 (150-450); RBC Distribution Width SD 52.4 fl (35.1-43.9); Red Blood Count 3.14 M/mm3 (4.2-5.4); White Blood Count 14.4 K/mm3 (4.4-11.0)
[2021-02-05 07:50] LABS: ALB/GLOB Ratio 0.4 RATIO (0.9-2.4); AST(SGOT) 28 U/L (15-37); Alanine Aminotransfer ALT/SGPT 17 U/L (13-56); Albumin, Serum 1.9 g/dL (3.2-5.0); Alkaline Phosphatase 79 U/L (45-117); Anion Gap 7 (5-15); BUN 80 mg/dL (7-18); BUN/Creat Ratio 27.9 RATIO (10-20); Chloride 113 mmol/L (98-107); Creatinine, Serum 2.87 mg/dL (0.55-1.02); EST Glomerular Filtration Rate 17 mL/min (>60); Est Glom Filt Rate - Afr Amer 21 mL/min (>60); Estimated Creatinine Clearance 13.17 ml/min; Globulin 4.8 g/dL (2.2-4.2); Glucose 177 mg/dL (74-106); Potassium 4.8 mmol/L (3.5-5.1); Protein, Total 6.7 g/dL (6.4-8.2); Sodium Level 142 mmol/L (136-145)
[2021-02-05] MEDS: Carvedilol 3.125 MG TABLET PO ×2 (08:41→21:35)
[2021-02-05] MEDS: amLODIPine 10 MG Tablet PO (08:41)
[2021-02-05] MEDS: Aspirin 81 MG TAB.CHEW PO (08:41)
[2021-02-05] MEDS: NYSTATIN 500,000 UNIT/5 ML UDC 500000 UNIT PO ×4 (08:41→21:35)
[2021-02-05] MEDS: dexAMETHasone 4 MG Tablet 6 MG PO (08:41)
[2021-02-05] MEDS: guaiFENesin 600 MG Tablet PO ×2 (08:41→21:35)
[2021-02-05] MEDS: Acetaminophen 325 MG Tablet 650 MG PO (08:42)
[2021-02-05] MEDS: Lansoprazole 15 MG Capsule.DR 30 MG PO (08:42)
--- NOTE | 2021-02-05 08:56 | PN.CC_ITS ---
Assessment & Plan Assessment/Plan (1) COVID-19: (2) Acute respiratory failure with hypoxia: PLAN: RECOMMENDATIONS: 1. Continue to diurese as tolerated. Hold on Lasix today given renal func tion 2. Out of bed as tolerated 3. No echocardiogram needed (EF 60% on 01/20/2021) 4. Encourage incentive spirometer and Acapella 5. BiPAP rescue with sleep 6. Continue to work with physical therapy. IMPRESSIONS: 1. Acute hypoxic respiratory failure following COVID-19 pneumonia Patient has not had any fever, increased secretions or other suggestion of a superimposed bacterial infection. However, would recommend panculture prior to any baricitinib. CT scan of the chest shows bilateral diffuse pulmonary infiltrates, but airways show partial collapse indicating an element of bronchomalacia. This may be secondary to recent steroid therapy. This would respond best to incentive spirometer and Acapella to help with pulmonary t oileting. Patient would definitely benefit from better compliance with Acapella and incentive spirometer, but appears to be precontemplative. 2. Acute on chronic kidney disease stage IV/hematuria/history of ureteral stents with nephrolithiasis and hydronephrosis Patient with recent obstruction requiring ureteral stents in December. Creatinine is stable today despite receiving diuretics yesterday. Patient has been seen by nephrology and urology previously. Baseline creatinine is around 2. Recommend diuresis as tolerated. This will also help with hyperkalemia. 3. Advanced age/history of noncompliance/hypertension/hyperlipidemia/diabetes mellitus poorly controlled/depression Complicates care, management, recovery and prognosis. Defer to primary service. Likely okay to continue with baseline medications for now. Blood frazier gars are marginally controlled and patient appears to be tolerating Decadron. Subjective Subjective Patient has done okay over the last 24 hours. Patient is reporting a productive cough. Patient has not really been compliant with incentive spirometer and Acapella therapy. Patient does state that she was out of bed yesterday. Objective Data Objective Data Vital Signs: Vital Signs Temp Pulse Resp BP Pulse Ox 37.0 C 79 20 H 154/57 H 92 02/05/21 02:19 02/05/21 05:42 02/05/21 02:19 02/05/21 05:42 02/05/21 08:48 Oxygen Flow Rate (L/min) 8 Oxygen Delivery Method Nasal Cannula Weight: 59 kg Body Mass Index (BMI) 24.5 Intake & Output: Intake and Output for Last 24 Hours 02/03/21 02/04/21 02/05/21 23:59 23:59 23:59 Intake Total 624.33 / 624.33 1055 / 1055 443.75 / 443.75 Output Total 150 / 150 250 / 250 250 / 250 Balance 474.33 / 474.33 805 / 805 193.75 / 193.75 Medical Nutrition Assessment Dietitian: Malnutrition Criteria Met Start: 01/30/21 12:06 Freq: Status: Active Protocol: Document 02/03/21 14:37 RMA (Rec: 02/03/21 14:37 RMA [id number]) Nutrition Malnutrition Evidence of Malnutrition Exists Yes Malnutrition (severe): Acute Illness/Injury Evidenced By Suboptimal Energy Intake ( Severe),Weight Loss (Severe) Clinical Problem Acute Disease or Injury Related Malnutrition Etiology Severe protein/calorie malnutrition in the context of acute illness related to inadequate oral intake/ inability to meet est nutritional needs Signs/Symptoms as evidenced by 12.5% wt loss x 11 days, <50% po intake x >5 days prior to admission and Po meeting less than 50% estimated nutrition needs. 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 Dietitian Recommendations/Changes Will liberalize diet to Carbohydrate-Controlled/Sodium -Restricted (no fat restriction/cardiac) d/t signs /symptoms of malnutrition; monitor need to restrict K+/ protein given renal status. Continue 120 ml vanilla glucerna shake w/ meals for increased nutrition if consumed. Lab / Micro Data Result Diagrams: 02/05/21 07:02 02/05/21 07:02 Labs: Laboratory Results - last 24 hr 02/04/21 11:08: POC Glucose 205 H 02/04/21 16:17: POC Glucose 247 H 02/04/21 21:50: POC Glucose 277 H 02/05/21 06:44: POC Glucose 170 H 02/05/21 07:02: WBC 14.4 H, RBC 3.14 L, Hgb 8.5 L, Hct 28.1 L, MCV 89.5, MCH 27.1, MCHC 30.2 L, RDW Std Deviation 52.4 H, RDW Coeff of Wade 16.0 H, Plt Count 237, MPV 11.0 02/05/21 07:02: Sodium 142, Potassium 4.8, Chloride 113 H, Carbon Dioxide 22.0, Anion Gap 7, BUN 80 H, Creatinine 2.87 H, Estim Creat Clear Calc 13.17, Est GFR (MDRD) Af Amer 21 L, Est GFR (MDRD) Non-Af 17 L, BUN/Creatinine Ratio 27.9 H, Glucose 177 H, Calcium 8.0 L, Total Bilirubin 0.40, AST 28, ALT 17, Alkaline Phosphatase 79, Total Protein 6.7, Albumin 1.9 L, Globulin 4.8 H, Albumin/Globul in Ratio 0.4 L Micro: Microbiology 02/02/21 18:20 Urine Catheter - Catheter Urine Culture - Final Vancomycin Resist. E. faecium Staphylococcus epidermidis Physical Exam Const alert and oriented x3 Constitutional Narrative: very frail and interactive Exam Limitations: no limitations HEENT head/scalp atraumatic and moist oral mucous membranes Head and Scalp: normocephalic Eyes PERRL and EOMs intact bilaterally Neck no lymphadenopathy and supple Chest inspection of chest normal Chest: symmetrical chest wall rise; Negative for crepitus Resp normal air movement and no use of accessory muscles Resp Narrative: On 9L of oxygen Effort and Inspection: Negative for stridor Auscultation: rales diffuse, wheezes scattered wheezes and diminished lung sounds; Negative for rhonchi Cardio regular rate, regular rhythm, S1 normal heart sound, S2 normal heart sound and no murmurs GI normal to inspection, nondistended, normoactive bowel sounds, soft to palpation, non-tender and non-distended Extremity normal to inspection, full ROM, normal capillary refill and no clubbing, cyanosis or edema General Extremity: no tenderness to palpation of joints or extremities Peripheral Pulses: Yes pulses 2+ throughout Skin no rashes or lesions noted General Skin Exam: turgor normal Neuro oriented x3 and CN's II-XII intact bilaterally Sensorium / Orientation: awake and alert Motor Exam: strength 5/5 throughout Psych affect normal Charges/Coding Visit Charges Inpatient E&M: 98776 Subs Hosp L2
--- NOTE | 2021-02-05 10:54 | PCM.PN.ID ---
Physical Exam Narrative Lethargic, no fever Const Orientation / Consciousness: lethargic Resp Auscultation: rhonchi Cardio regular rate and regular rhythm GI normal to inspection, nondistended, normoactive bowel sounds Skin no rashes or lesions noted ID ID: Route of nutrition/ use of supplements: [] Nutritional Intake: [] IV Site: [] Alexandre Catheter: [] Assessment & Plan Assessment/Plan (1) COVID-19: PLAN: Sx started around 01/17. Unvaccinated. Covid (+) 01/24. Developed worsened O2. Cont dex as she did not get full 10 days prior. On baricitinib. O2 up to 11L overnight. Ucx with moderate VRE and MRSE. UA on admit with 25-50 wbc. With lethargy, leukocytosis, will start linezolid for short course. Plan on stopping zosyn soon. Will follow (2) Acute respiratory failure with hypoxia:
[2021-02-05] MEDS: hydrOXYzine PAM 25 MG Capsule 50 MG PO (12:10)
[2021-02-05] MEDS: Linezolid 600 MG Tablet PO ×2 (12:10→21:35)
[2021-02-05 12:21] LABS: Bedside Glucose 109 mg/dL (70-110)
[2021-02-05] MEDS: Tamsulosin HCl 0.4 MG Capsule PO (17:06)
[2021-02-05 17:16] LABS: Bedside Glucose 190 mg/dL (70-110)
--- NOTE | 2021-02-05 19:01 | PN.HOSP_ITS ---
Subjective Subjective Patient was seen and examined today, she is on 4 L nasal cannula at this time. Patient does not appear to be in any respiratory distress at rest. Objective Data Objective Data Vital Signs: Vital Signs Temp Pulse Resp BP Pulse Ox 96.9 F L 74 18 143/55 H 91 02/05/21 17:04 02/05/21 17:04 02/05/21 17:04 02/05/21 17:04 02/05/21 18:21 Oxygen Flow Rate (L/min) 4 Oxygen Delivery Method Nasal Cannula Weight: 59 kg Body Mass Index (BMI) 24.5 Intake & Output: Intake and Output for Last 24 Hours 02/03/21 02/04/21 02/05/21 23:59 23:59 23:59 Intake Total 624.33 / 624.33 1055 / 1055 853.75 / 853.75 Output Total 150 / 150 250 / 250 550 / 550 Balance 474.33 / 474.33 805 / 805 303.75 / 303.75 Medical Nutrition Assessment Dietitian: Malnutrition Criteria Met Start: 01/30/21 12:06 Freq: Status: Active Protocol: Document 02/03/21 14:37 RMA (Rec: 02/03/21 14:37 RMA [id number]) Nutrition Malnutrition Evidence of Malnutrition Exists Yes Malnutrition (severe): Acute Illness/Injury Evidenced By Suboptimal Energy Intake ( Severe),Weight Loss (Severe) Clinical Problem Acute Disease or Injury Related Malnutrition Etiology Severe protein/calorie malnutrition in the context of acute illness related to inadequate oral intake/ inability to meet est nutritional needs Signs/Symptoms as evidenced by 12.5% wt loss x 11 days, <50% po intake x >5 days prior to admission and Po meeting less than 50% estimated nutrition needs. 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 Dietitian Recommendations/Changes Will liberalize diet to Carbohydrate-Controlled/Sodium -Restricted (no fat restriction/cardiac) d/t signs /symptoms of malnutrition; monitor need to restrict K+/ protein given renal status. Continue 120 ml vanilla glucerna shake w/ meals for increased nutrition if consumed. Lab / Micro Data Result Diagrams: 02/06/21 06:25 02/06/21 06:25 Labs: Laboratory Results - last 24 hr 02/04/21 21:50: POC Glucose 277 H 02/05/21 06:44: POC Glucose 170 H 02/05/21 07:02: WBC 14.4 H, RBC 3.14 L, Hgb 8.5 L, Hct 28.1 L, MCV 89.5, MCH 27.1, MCHC 30.2 L, RDW Std Deviation 52.4 H, RDW Coeff of Wade 16.0 H, Plt Count 237, MPV 11.0 02/05/21 07:02: Sodium 142, Potassium 4.8, Chloride 113 H, Carbon Dioxide 22.0, Anion Gap 7, BUN 80 H, Creatinine 2.87 H, Estim Creat Clear Calc 13.17, Est GFR (MDRD) Af Amer 21 L, Est GFR (MDRD) Non-Af 17 L, BUN/Creatinine Ratio 27.9 H, Glucose 177 H, Calcium 8.0 L, Total Bilirubin 0.40, AST 28, ALT 17, Alkaline Phosphatase 79, Total Protein 6.7, Albumin 1.9 L, Globulin 4.8 H, Albumin/Globulin Ratio 0.4 L 02/05/21 12:08: POC Glucose 109 02/05/21 17:05: POC Glucose 190 H Micro: Microbiology 02/02/21 18:20 Urine Catheter - Catheter Urine Culture - Final Vancomycin Resist. E. faecium Staphylococcus epidermidis Physical Exam Const alert and no apparent distress Constitutional Narrative: Patient appears much older than her stated age General Appearance: cooperative, well kempt and well developed Orientation / Consciousness: awake, oriented to person, oriented to place and oriented to time HEENT normocephalic, head/scalp atraumatic and moist oral mucous membranes Head and Scalp: normocephalic Eyes PERRL, EOMs intact bilaterally and conjunctivae normal Neck nuchal rigidity, supple, no JVD, thyroid normal and no carotid bruits General: trachea midline Resp normal respiratory effort, no retractions, no use of accessory muscles and clear to auscultation bilaterally Auscultation: Negative for rales, rhonchi or wheezes Cardio regular rate, regular rhythm, S1 normal heart sound, S2 normal heart sound, no murmurs, no rub and no gallops GI normal to inspection, nondistended, normoactive bowel sounds, soft to palpation, non-tender and non-distended Extremity no clubbing, cyanosis or edema Skin no rashes or lesions noted General Skin Exam: no breakdown Neuro CN's II-XII intact bilaterally, no focal motor deficits and no sensory deficits noted Sensorium / Orientation: awake and alert Speech: speech normal Psych thought process normal and affect normal Assessment & Plan Assessment/Plan (1) COVID-19: PLAN: 1. COVID-19 pneumonia-patient is currently on baricitinib and dexamethasone. She is currently on empiric Zosyn, patient was not given remdesivir due to her renal function and window of treatment was surpassed. Patient is not very active in her room, I discussed her care with pulmonary medicine and they stated that they were encouraging the patient to become more mobile within her room. At this time, patient requires too high on oxygen flow to transfer her to an extended care facility. #2 acute hypoxic respiratory failure secondary to #1-pulse ox will be monitored #3 generalized debility-PT and OT will see the patient, at this time patient refuses to go to a care home facility, she will more than likely have to go however as she is not able to take care of her self at home. #4 noncompliance with medical regimen-it is not clear that the patient is taking her medications properly at home, she refuses to go to a care home facility at this time. #5 chronic kidney disease stage IIIb secondary to type 2 diabetes, labs will be monitored #6 type 2 diabetes-continue to monitor blood sugars #7 severe protein and caloric malnutrition-nutritional services is seeing patient Charges/Coding Visit Charges Inpatient E&M: 29267 Subs Hosp L2
[2021-02-05] MEDS: Atorvastatin Calcium 40 MG Tablet PO (21:35)
[2021-02-05 22:01] LABS: Bedside Glucose 217 mg/dL (70-110)
[2021-02-06] VITALS (16 sets, daily range): BP systolic 137–157; BP diastolic 49–77; PULSE 67–82; RESP 18–24; TEMP 36.1–36.7; O2SAT 91–95
[2021-02-06] MEDS: guaiFENesin 10 ML UDC (200MG/10ML) 20 ML PO ×2 (00:28→10:15)
[2021-02-06] MEDS: Pregabalin 50 MG Capsule PO ×3 (05:59→21:54)
[2021-02-06] MEDS: hydrALAZINE 50 MG Tablet 100 MG PO ×3 (05:59→21:54)
[2021-02-06 06:41] LABS: Bedside Glucose 102 mg/dL (70-110)
[2021-02-06 07:00] LABS: Hematocrit 25.8 % (37-47); Hemoglobin 7.8 g/dL (12.0-15.0); Mean Corp Hgb Conc 30.2 g/dL (32-36); Mean Corpuscular Volume 89.3 fL (81-99); Mean Platelet Vol. 11.4 fl (6.2-12.0); POSITIVE COUNT YES; POSITIVE MORPHOLOGY YES; Platelet Count 227 K/mm3 (150-450); RBC Distribution Width CV 16.1 % (11.6-14.6); RBC Distribution Width SD 52.9 fl (35.1-43.9); Red Blood Count 2.89 M/mm3 (4.2-5.4); White Blood Count 12.7 K/mm3 (4.4-11.0)
[2021-02-06 07:09] LABS: Differential Indicated MANUAL DIFF
[2021-02-06 07:18] LABS: Anion Gap 7 (5-15); BUN 86 mg/dL (7-18); BUN/Creat Ratio 28.6 RATIO (10-20); Calcium,Total 7.8 mg/dL (8.5-10.1); Chloride 116 mmol/L (98-107); Creatinine, Serum 3.01 mg/dL (0.55-1.02); EST Glomerular Filtration Rate 16 mL/min (>60); Est Glom Filt Rate - Afr Amer 20 mL/min (>60); Estimated Creatinine Clearance 12.56 ml/min; Glucose 103 mg/dL (74-106); Potassium 4.6 mmol/L (3.5-5.1); Sodium Level 145 mmol/L (136-145)
[2021-02-06 07:27] LABS: Total Cells Counted 100 (MANUAL DIFF)
[2021-02-06 07:29] LABS: Lymphocyte 13 % (19-41); Metamyelocyte 1 % (0-1); Monocyte 3 % (0-10); Neutrophil-Segmented 83 % (47-70); Platelet Estimate ADEQUATE (ADEQ); Red Cell Morphology NORM C+C NORMAL (NORM C&C)
[2021-02-06 07:30] LABS: Absolute Lymphocyte Count 1.64 X10^3/uL (0.83-4.51); Absolute Neutrophil Count 10.5 X10^3/uL (2.0-7.7); Lymphocyte # 1.64 X10^3/ul (0.83-4.51)
--- NOTE | 2021-02-06 09:20 | CASEMGMT ---
SARAH received a call from Isela Desai with [facility]. Isela was on vacation and did not know when patient came in to [facility]. SARAH let Isela know patient's admission date and diagnosis. Patient is currently not in agreement with placement, but she was last weekend. Patient is not ready for discharge yet, but SARAH will keep Isela up to date. Yaneli Ward MSW [facility]
--- NOTE | 2021-02-06 10:00 | CASEMGMT ---
SARAH sent updates to [place]. Yaneli Ward PEANUT VENDOR RN UROLOGY
--- NOTE | 2021-02-06 10:06 | PN.CC_ITS ---
Assessment & Plan Assessment/Plan (1) COVID-19: (2) Acute respiratory failure with hypoxia: PLAN: RECOMMENDATIONS: 1. Continue to diurese as tolerated. We will challenge given patient's +6 L over hospitalization 2. Out of bed as tolerated 3. No echocardiogram needed (EF 60% on 01/20/2021) 4. Encourage incentive spirometer and Acapella 5. BiPAP rescue with sleep 6. Continue to work with physical therapy. IMPRESSIONS: 1. Acute hypoxic respiratory failure following COVID-19 pneumonia Patient has not had any fever, increased secretions or other suggestion of a superimposed bacterial infection. However, would recommend panculture prior to any baricitinib. CT scan of the chest shows bilateral diffuse pulmonary infiltrates, but airways show partial collapse indicating an element of bronchomalacia. This may be secondary to recent steroid therapy. This would respond best to incentive spirometer and Acapella to help with pulmonary toileting. Patient would definitely benefit from better compliance with Acapella and incentive spirometer, but appears to be precontemplative. Slow recovery likely contributed by patient's lack of cooperation with Acapella, prone positioning and incentive spirometer 2. Acute on chronic kidney disease stage IV/hematuria/history of ureteral stents with nephrolithiasis and hydronephrosis Patient with recent obstruction requiring ureteral stents in December. Patient is over 6 L positive for the hospitalization. We will challenge with diuretics today. Patient has been seen by nephrology and urology previously. Baseline creatinine is around 2. Recommend diuresis as tolerated. This will also help with hyperkalemia. 3. Advanced age/history of noncompliance/hypertension/hyperlipidemia/diabetes mellitus poorly controlled/de pression Complicates care, management, recovery and prognosis. Defer to primary service. Likely okay to continue with baseline medications for now. Blood sugars are marginally controlled and patient appears to be tolerating Decadron. Subjective Subjective Patient continues to be minimally cooperative with supportive measures. Patient has been out of bed with therapy. Patient overall feels subjectively improved, but oxygenation significantly worsened overnight. Objective Data Objective Data Vital Signs: Vital Signs Temp Pulse Resp BP Pulse Ox 36.1 C L 75 18 157/56 H 95 02/06/21 10:00 02/06/21 10:00 02/06/21 10:00 02/06/21 10:02/06/21 10:00 Oxygen Flow Rate (L/min) 10 Oxygen Delivery Method Room Air Weight: 59 kg Body Mass Index (BMI) 24.5 Intake & Output: Intake and Output for Last 24 Hours 02/04/21 02/05/21 02/06/21 23:59 23:59 23:59 Intake Total 1055 / 1055 1153.75 / 1153.75 471.25 / 471.25 Output Total 250 / 250 750 / 750 400 / 400 Balance 805 / 805 403.75 / 403.75 71.25 / 71.25 Medical Nutrition Assessment Dietitian: Malnutrition Criteria Met Start: 01/30/21 12:06 Freq: Status: Active Protocol: Document 02/03/21 14:37 RMA (Rec: 02/03/21 14:37 RMA [id number]) Nutrition Malnutrition Evidence of Malnutrition Exists Yes Malnutrition (severe): Acute Illness/Injury Evidenced By Suboptimal Energy Intake ( Severe),Weight Loss (Severe) Clinical Problem Acute Disease or Injury Related Malnutrition Etiology Severe protein/calorie malnutrition in the context of acute illness related to inadequate oral intake/ inability to meet est nutritional needs Signs/Symptoms as evidenced by 12.5% wt loss x 11 days, <50% po intake x >5 days prior to admission and Po meeting less than 50% estimated nutrition needs. 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 Dietitian Recommendations/Changes Will liberalize diet to Carbohydrate-Controlled/Sodium -Restricted (no fat restriction/cardiac) d/t signs /symptoms of malnutrition; monitor need to restrict K+/ protein given renal status. Continue 120 ml vanilla glucerna shake w/ meals for increased nutrition if consumed. Lab / Micro Data Result Diagrams: 02/06/21 06:25 02/06/21 06:25 Labs: Laboratory Results - last 24 hr 02/05/21 12:08: POC Glucose 109 02/05/21 17:05: POC Glucose 190 H 02/05/21 21:25: POC Glucose 217 H 02/06/21 06:25: WBC 12.7 H, RBC 2.89 L, Hgb 7.8 L, Hct 25.8 L, MCV 89.3, MCH 27.0, MCHC 30.2 L, RDW Std Deviation 52.9 H, RDW Coeff of Wade 16.1 H, Plt Count 227, MPV 11.4, Neut % (Auto) Not Reportable, Absolute Neuts (auto) 10.5 H, Absolute Lymphs (auto) 1.64, Total Counted 100, Neutrophils % (Manual) 83 H, Lymphocytes % (Manual) 13 L, Monocytes % (Manual) 3, Metamyelocytes % 1, Diff Path Review May foll, Platelet Estimate ADEQUATE, RBC Morphology NORM C+C 02/06/21 06:25: Sodium 145, Potassium 4.6, Chloride 116 H, Carbon Dioxide 22.0, Anion Gap 7, BUN 86 H, Creatinine 3.01 H, Estim Creat Clear Calc 12.56, Est GFR (MDRD) Af Amer 20 L, Est GFR (MDRD) Non-Af 16 L, BUN/Creatinine Ratio 28.6 H, Glucose 103, Calcium 7.8 L 02/06/21 06:32: POC Glucose 102 Micro: Microbiology 02/02/21 18:20 Urine Catheter - Catheter Urine Culture - Final Vancomycin Resist. E. faecium Staphylococcus epidermidis Physical Exam Const alert and oriented x3 Constitutional Narrative: very frail and interactive Exam Limitations: no limitations HEENT head/scalp atraumatic and moist oral mucous membranes Head and Scalp: normocephalic Eyes PERRL and EOMs intact bilaterally Neck no lymphadenopathy and supple Chest inspection of chest normal Chest: symmetrical chest wall rise; Negative for crepitus Resp normal air movement and no use of accessory muscles Resp Narrative: On 9L of oxygen Effort and Inspection: Negative for stridor Auscultation: rales diffuse, wheezes scattered wheezes and diminished lung sounds; Negative for rhonchi Cardio regular rate, regular rhythm, S1 normal heart sound, S2 normal heart sound and no murmurs GI normal to inspection, nondistended, normoactive bowel sounds, soft to palpation, non-tender and non-distended Extremity normal to inspection, full ROM, normal capillary refill and no clubbing, cyanosis or edema General Extremity: no tenderness to palpation of joints or extremities Peripheral Pulses: Yes pulses 2+ throughout Skin no rashes or lesions noted General Skin Exam: turgor normal Neuro oriented x3 and CN's II-XII intact bilaterally Sensorium / Orientation: awake and alert Motor Exam: strength 5/5 throughout Psych affect normal Charges/Coding Visit Charges Inpatient E&M: 20337 Subs Hosp L2
[2021-02-06] MEDS: Linezolid 600 MG Tablet PO ×2 (10:09→21:57)
[2021-02-06] MEDS: Lansoprazole 15 MG Capsule.DR 30 MG PO (10:09)
[2021-02-06] MEDS: Aspirin 81 MG TAB.CHEW PO (10:09)
[2021-02-06] MEDS: guaiFENesin 600 MG Tablet PO ×2 (10:10→21:54)
[2021-02-06] MEDS: NYSTATIN 500,000 UNIT/5 ML UDC 500000 UNIT PO ×4 (10:10→21:57)
[2021-02-06] MEDS: dexAMETHasone 4 MG Tablet 6 MG PO (10:10)
[2021-02-06] MEDS: amLODIPine 10 MG Tablet PO (10:10)
[2021-02-06] MEDS: Carvedilol 3.125 MG TABLET PO ×2 (10:10→21:56)
[2021-02-06] MEDS: Ondansetron 4 MG/2 ML Vial IV (10:11)
[2021-02-06] MEDS: 0.9% Saline Lock 10 ML Syringe IV (10:15)
[2021-02-06] MEDS: Furosemide 40 MG/4 ML Vial IV (10:39)
--- NOTE | 2021-02-06 11:43 | PCM.PN.BLA ---
Progress Note The patient is a 75-year-old female well-known to me with bilateral indwelling ureteral catheter secondary to hydronephrosis. She has subsequently been admitted with COVID-19 and pneumonia and respiratory difficulty. A few days ago, she developed gross hematuria and I was asked to evaluate. The following morning upon entering the PCU, I was informed by the nurse that the patient had hematuria that had resolved and her urine was cassidy in color. Given her isolation and the fact that she can have intermittent hematuria from the stents, I did not further evaluate the situation. I did speak with the hospitalist group and recommended urine culture with appropriate management and that they could call me further if hematuria recurred. I am okay with resuming anticoagulation as needed. Thank you
[2021-02-06 12:30] LABS: Bedside Glucose 125 mg/dL (70-110)
[2021-02-06 13:24] LABS: Pathologist Review Reviewed
[2021-02-06] MEDS: Insulin Lispro 100 UNIT/ML INSULN.PEN SC ×2 (17:33→22:46)
[2021-02-06] MEDS: Tamsulosin HCl 0.4 MG Capsule PO (17:34)
[2021-02-06 17:56] LABS: Bedside Glucose 235 mg/dL (70-110)
--- NOTE | 2021-02-06 20:01 | PN.HOSP_ITS ---
Subjective Subjective Patient was seen and examined today, I talked briefly with pulmonary medicine about her care. Patient requires high flow oxygen on ambulation, she is not appropriate for transfer to an extended care facility at this time. She remains on baricitinib, dexamethasone, and Zosyn. Patient was given a dose of Lasix IV today. Objective Data Objective Data Vital Signs: Vital Signs Temp Pulse Resp BP Pulse Ox 96.9 F L 77 20 H 145/53 H 93 02/06/21 20:00 02/06/21 20:00 02/06/21 20:00 02/06/21 20:00 02/06/21 20:00 Oxygen Flow Rate (L/min) 8 Oxygen Delivery Method Nasal Cannula Weight: 59 kg Body Mass Index (BMI) 24.5 Intake & Output: Intake and Output for Last 24 Hours 02/04/21 02/05/21 02/06/21 23:59 23:59 23:59 Intake Total 1055 / 1055 1153.75 / 1153.75 881.25 / 881.25 Output Total 250 / 250 750 / 750 1000 / 1000 Balance 805 / 805 403.75 / 403.75 -118.75 / -118.75 Medical Nutrition Assessment Dietitian: Malnutrition Criteria Met Start: 01/30/21 12:06 Freq: Status: Active Protocol: Document 02/03/21 14:37 RMA (Rec: 02/03/21 14:37 RMA [id number]) Nutrition Malnutrition Evidence of Malnutrition Exists Yes Malnutrition (severe): Acute Illness/Injury Evidenced By Suboptimal Energy Intake ( Severe),Weight Loss (Severe) Clinical Problem Acute Disease or Injury Related Malnutrition Etiology Severe protein/calorie malnutrition in the context of acute illness related to inadequate oral intake/ inability to meet est nutritional needs Signs/Symptoms as evidenced by 12.5% wt loss x 11 days, <50% po intake x >5 days prior to admission and Po meeting less than 50% estimated nutrition needs. 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 Dietitian Recommendations/Changes Will liberalize diet to Carbohydrate-Controlled/Sodium -Restricted (no fat restriction/cardiac) d/t signs /symptoms of malnutrition; monitor need to restrict K+/ protein given renal status. Continue 120 ml vanilla glucerna shake w/ meals for increased nutrition if consumed. Lab / Micro Data Result Diagrams: 02/06/21 06:25 02/06/21 06:25 Labs: Laboratory Results - last 24 hr 02/05/21 21:25: POC Glucose 217 H 02/06/21 06:25: WBC 12.7 H, RBC 2.89 L, Hgb 7.8 L, Hct 25.8 L, MCV 89.3, MCH 27.0, MCHC 30.2 L, RDW Std Deviation 52.9 H, RDW Coeff of Wade 16.1 H, Plt Count 227, MPV 11.4, Neut % (Auto) Not Reportable, Absolute Neuts (auto) 10.5 H, Absolute Lymphs (auto) 1.64, Total Counted 100, Neutrophils % (Manual) 83 H, Lymphocytes % (Manual) 13 L, Monocytes % (Manual) 3, Metamyelocytes % 1, Diff Path Review Reviewed, Platelet Estimate ADEQUATE, RBC Morphology NORM C+C 02/06/21 06:25: Sodium 145, Potassium 4.6, Chloride 116 H, Carbon Dioxide 22.0, Anion Gap 7, BUN 86 H, Creatinine 3.01 H, Estim Creat Clear Calc 12.56, Est GFR (MDRD) Af Amer 20 L, Est GFR (MDRD) Non-Af 16 L, BUN/Creatinine Ratio 28.6 H, Glucose 103, Calcium 7.8 L 02/06/21 06:32: POC Glucose 102 02/06/21 12:17: POC Glucose 125 H 02/06/21 17:31: POC Glucose 235 H Micro: Microbiology 02/02/21 18:20 Urine Catheter - Catheter Urine Culture - Final Vancomycin Resist. E. faecium Staphylococcus epidermidis Physical Exam Const alert and no apparent distress Constitutional Narrative: Patient appears older than her stated age General Appearance: cooperative, well kempt and well developed Orientation / Consciousness: awake, oriented to person, oriented to place and oriented to time Exam Limitations: no limitations HEENT normocephalic, head/scalp atraumatic and moist oral mucous membranes Head and Scalp: normocephalic Eyes PERRL, EOMs intact bilaterally and conjunctivae normal Neck nuchal rigidity, supple, no JVD and thyroid normal General: trachea midline Resp normal respiratory effort, no retractions, no use of accessory muscles and clear to auscultation bilaterally Resp Narrative: tachypneic, coarse crackles bilaterally. mild wheezing. On 9L of oxygen Auscultation: Negative for rales, rhonchi or wheezes Cardio regular rate, regular rhythm, S1 normal heart sound, S2 normal heart sound, no murmurs, no rub and no gallops GI normal to inspection, nondistended, normoactive bowel sounds, soft to palpation, non-tender and non-distended Extremity no clubbing, cyanosis or edema General Extremity: no tenderness to palpation of joints or extremities Skin no rashes or lesions noted General Skin Exam: no breakdown Neuro CN's II-XII intact bilaterally, no focal motor deficits and no sensory deficits noted Sensorium / Orientation: awake and alert Speech: speech normal Motor Exam: strength 5/5 throughout Psych thought process normal and affect normal Psych Narrative: Patient has a flat affect Assessment & Plan Assessment/Plan (1) COVID-19: PLAN: 1. COVID-19 pneumonia-patient is currently on baricitinib and dexamethasone. She is currently on empiric Zosyn, patient was not given remdesivir due to her renal function and window of treatment was surpassed. Patient is not very active in her room #2 acute hypoxic respiratory failure secondary to #1-pulse ox will be monitored, she requires too high a flow of oxygen to be transferred to an extended care facility #3 generalized debility-PT and OT will see the patient, at this time patient refuses to go to a longterm facility, she will more than likely have to go however as she is not able to take care of her self at home. #4 noncompliance with medical regimen-it is not clear that the patient is taking her medications properly at home #5 chronic kidney disease stage IIIb secondary to type 2 diabetes, labs will be monitored #6 type 2 diabetes-continue to monitor blood sugars #7 severe protein and caloric malnutrition-nutritional services is seeing patient Charges/Coding Visit Charges Inpatient E&M: 32616 Subs Hosp L2
[2021-02-06] MEDS: Atorvastatin Calcium 40 MG Tablet PO (21:57)
[2021-02-06 23:01] LABS: Bedside Glucose 265 mg/dL (70-110)
[2021-02-07] VITALS (18 sets, daily range): BP systolic 132–153; BP diastolic 55–58; PULSE 60–78; RESP 18–24; TEMP 35.5–36.9; O2SAT 93–99
[2021-02-07] MEDS: Pregabalin 50 MG Capsule PO ×3 (06:28→21:57)
[2021-02-07] MEDS: hydrALAZINE 50 MG Tablet 100 MG PO ×3 (06:28→21:58)
[2021-02-07 06:46] LABS: Bedside Glucose 96 mg/dL (70-110)
[2021-02-07] MEDS: Lansoprazole 15 MG Capsule.DR 30 MG PO (10:22)
[2021-02-07] MEDS: Aspirin 81 MG TAB.CHEW PO (10:25)
[2021-02-07] MEDS: amLODIPine 10 MG Tablet PO (10:25)
[2021-02-07] MEDS: guaiFENesin 600 MG Tablet PO ×2 (10:25→21:57)
[2021-02-07] MEDS: Carvedilol 3.125 MG TABLET PO ×2 (10:26→22:06)
[2021-02-07] MEDS: dexAMETHasone 4 MG Tablet 6 MG PO (10:26)
[2021-02-07] MEDS: Linezolid 600 MG Tablet PO ×2 (10:26→21:59)
[2021-02-07] MEDS: NYSTATIN 500,000 UNIT/5 ML UDC 500000 UNIT PO ×4 (10:26→21:58)
[2021-02-07] MEDS: guaiFENesin 10 ML UDC (200MG/10ML) 20 ML PO (10:51)
[2021-02-07] MEDS: Acetaminophen 325 MG Tablet 650 MG PO (10:51)
[2021-02-07] MEDS: Insulin Lispro 100 UNIT/ML INSULN.PEN SC ×3 (14:01→22:12)
[2021-02-07 14:10] LABS: Bedside Glucose 204 mg/dL (70-110)
[2021-02-07] MEDS: Tamsulosin HCl 0.4 MG Capsule PO (18:14)
[2021-02-07 18:30] LABS: Bedside Glucose 175 mg/dL (70-110)
--- NOTE | 2021-02-07 19:30 | PN.HOSP_ITS ---
Subjective Subjective Patient was seen and examined today, she appears somnolent and lethargic but is able to speak a few sentences to this examiner. Patient is still on high flow nasal cannula oxygen at this time. Objective Data Objective Data Vital Signs: Vital Signs Temp Pulse Resp BP Pulse Ox 97.8 F 67 20 H 133/55 H 95 02/07/21 14:50 02/07/21 15:48 02/07/21 14:50 02/07/21 14:54 02/07/21 18:00 Oxygen Flow Rate (L/min) 8 Oxygen Delivery Method Nasal Cannula Weight: 59 kg Body Mass Index (BMI) 24.5 Intake & Output: Intake and Output for Last 24 Hours 02/05/21 02/06/21 02/07/21 23:59 23:59 23:59 Intake Total 1153.75 / 1153.75 1121.25 / 1121.25 955 / 955 Output Total 750 / 750 1300 / 1300 100 / 100 Balance 403.75 / 403.75 -178.75 / -178.75 855 / 855 Medical Nutrition Assessment Dietitian: Malnutrition Criteria Met Start: 01/30/21 12:06 Freq: Status: Active Protocol: Document 02/03/21 14:37 RMA (Rec: 02/03/21 14:37 RMA [id number]) Nutrition Malnutrition Evidence of Malnutrition Exists Yes Malnutrition (severe): Acute Illness/Injury Evidenced By Suboptimal Energy Intake ( Severe),Weight Loss (Severe) Clinical Problem Acute Disease or Injury Related Malnutrition Etiology Severe protein/calorie malnutrition in the context of acute illness related to inadequate oral intake/ inability to meet est nutritional needs Signs/Symptoms as evidenced by 12.5% wt loss x 11 days, <50% po intake x >5 days prior to admission and Po meeting less than 50% estimated nutrition needs. 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 Dietitian Recommendations/Changes Will liberalize diet to Carbohydrate-Controlled/Sodium -Restricted (no fat restriction/cardiac) d/t signs /symptoms of malnutrition; monitor need to restrict K+/ protein given renal status. Continue 120 ml vanilla glucerna shake w/ meals for increased nutrition if consumed. Lab / Micro Data Result Diagrams: 02/06/21 06:25 02/06/21 06:25 Labs: Laboratory Results - last 24 hr 02/06/21 22:45: POC Glucose 265 H 02/07/21 06:40: POC Glucose 96 02/07/21 13:58: POC Glucose 204 H 02/07/21 18:13: POC Glucose 175 H Micro: Microbiology 02/02/21 18:20 Urine Catheter - Catheter Urine Culture - Final Vancomycin Resist. E. faecium Staphylococcus epidermidis Physical Exam Narrative Constitutional Narrative: Patient appears older than her stated age General Appearance: Patient is lethargic and hard to understand when she speaks Orientation / Consciousness: awake Exam Limitations: HEENT normocephalic, head/scalp atraumatic and moist oral mucous membranes Head and Scalp: normocephalic Eyes PERRL, EOMs intact bilaterally and conjunctivae normal Neck nuchal rigidity, supple, no JVD and thyroid normal General: trachea midline Resp normal respiratory effort, no retractions, no use of accessory muscles and clear to auscultation bilaterally Resp Narrative: tachypneic, coarse crackles bilaterally. mild wheezing. On 9L of oxygen Auscultation: Negative for rales, rhonchi or wheezes Cardio regular rate, regular rhythm, S1 normal heart sound, S2 normal heart sound, no murmurs, no rub and no gallops GI normal to inspection, nondistended, normoactive bowel sounds, soft to palpation, non-tender and non-distended Extremity no clubbing, cyanosis or edema General Extremity: no tenderness to palpation of joints or extremities Skin no rashes or lesions noted General Skin Exam: no breakdown Neuro CN's II-XII intact bilaterally, no focal motor deficits and no sensory deficits noted Sensorium / Orientation: awake and alert Speech: speech normal Motor Exam: strength 5/5 throughout Psych Patient appears somnolent and is hard to understand when she speaks Psych Narrative: Patient has a flat affect Assessment & Plan Assessment/Plan (1) COVID-19: PLAN: 1. COVID-19 pneumonia-patient is currently on baricitinib and dexamethasone. She is currently on empiric Zosyn, patient was not given remdesivir due to her renal function and window of treatment was surpassed. Patient is not very active in her room #2 acute hypoxic respiratory failure secondary to #1-pulse ox will be monitored, she requires too high a flow of oxygen to be transferred to an extended care facility #3 generalized debility-PT and OT will see the patient, at this time patient refuses to go to a senior care facility, she will more than likely have to go however as she is not able to take care of her self at home. #4 noncompliance with medical regimen-it is not clear that the patient is taking her medications properly at home #5 chronic kidney disease stage IIIb secondary to type 2 diabetes, labs will be monitored #6 type 2 diabetes-continue to monitor blood sugars #7 severe protein and caloric malnutrition-nutritional services is seeing patient #8 Vancomycin-resistant Enterococcus in urine-these are at low numbers and appear to be colonization-patient is being treated with Zyvox by infectious diseases #9 somnolence/metabolic encephalopathy-I have decided to cut the patient's Lyrica dose down to 50 mg twice daily, I had written for Vistaril for her a couple of days ago for anxiety but she has not been receiving the Vistaril so I have decided to stop it. Charges/Coding Visit Charges Inpatient E&M: 75485 Subs Hosp L2
[2021-02-07] MEDS: Atorvastatin Calcium 40 MG Tablet PO (21:57)
[2021-02-07] MEDS: 0.9% Saline Lock 10 ML Syringe IV (22:05)
[2021-02-07 23:10] LABS: Bedside Glucose 257 mg/dL (70-110)
[2021-02-08] VITALS (21 sets, daily range): BP systolic 132–159; BP diastolic 50–63; PULSE 66–82; RESP 17–24; TEMP 36.6–36.9; O2SAT 87–99
[2021-02-08] MEDS: guaiFENesin 10 ML UDC (200MG/10ML) 20 ML PO ×4 (00:51→23:07)
[2021-02-08] MEDS: Menthol/Lanolin/Calamine/Znox 113 GM Tube 1 APPLIC TOPICAL ×3 (06:35→22:44)
[2021-02-08] MEDS: hydrALAZINE 50 MG Tablet 100 MG PO ×3 (06:35→22:44)
[2021-02-08 06:56] LABS: Bedside Glucose 78 mg/dL (70-110)
[2021-02-08] MEDS: 0.9% Saline Lock 10 ML Syringe IV ×2 (08:59→18:04)
[2021-02-08] MEDS: NYSTATIN 500,000 UNIT/5 ML UDC 500000 UNIT PO ×4 (09:00→22:44)
[2021-02-08] MEDS: Carvedilol 3.125 MG TABLET PO ×2 (09:01→22:44)
[2021-02-08] MEDS: Pregabalin 50 MG Capsule PO ×2 (09:01→22:48)
[2021-02-08] MEDS: amLODIPine 10 MG Tablet PO (09:01)
[2021-02-08] MEDS: Aspirin 81 MG TAB.CHEW PO (09:01)
[2021-02-08] MEDS: dexAMETHasone 4 MG Tablet 6 MG PO (09:01)
[2021-02-08] MEDS: guaiFENesin 600 MG Tablet PO ×2 (09:01→22:44)
[2021-02-08] MEDS: Linezolid 600 MG Tablet PO ×2 (09:01→22:44)
[2021-02-08] MEDS: Acetaminophen 325 MG Tablet 650 MG PO (09:03)
[2021-02-08] MEDS: Lansoprazole 15 MG Capsule.DR 30 MG PO (09:03)
[2021-02-08 11:46] LABS: Bedside Glucose 129 mg/dL (70-110)
--- NOTE | 2021-02-08 17:19 | PCM.PN.HOSP ---
Subjective Subjective Patient was seen and examined today, she did not complain of any shortness of breath at rest, late this afternoon she was able to be weaned down to 3 L at rest. Objective Data Objective Data Vital Signs: Vital Signs Temp Pulse Resp BP Pulse Ox 97.9 F 67 18 132/50 H 94 02/08/21 14:39 02/08/21 15:36 02/08/21 14:39 02/08/21 14:46 02/08/21 14:45 Oxygen Flow Rate (L/min) 3 Oxygen Delivery Method Nasal Cannula Weight: 59 kg Body Mass Index (BMI) 24.5 Intake & Output: Intake and Output for Last 24 Hours 02/06/21 02/07/21 02/08/21 23:59 23:59 23:59 Intake Total 1121.25 / 1121.25 955 / 955 575 / 575 Output Total 1300 / 1300 100 / 100 Balance -178.75 / -178.75 855 / 855 575 / 575 Medical Nutrition Assessment Dietitian: Malnutrition Criteria Met Start: 01/30/21 12:06 Freq: Status: Active Protocol: Document 02/03/21 14:37 RMA (Rec: 02/03/21 14:37 RMA [id number]) Nutrition Malnutrition Evidence of Malnutrition Exists Yes Malnutrition (severe): Acute Illness/Injury Evidenced By Suboptimal Energy Intake ( Severe),Weight Loss (Severe) Clinical Problem Acute Disease or Injury Related Malnutrition Etiology Severe protein/calorie malnutrition in the context of acute illness related to inadequate oral intake/ inability to meet est nutritional needs Signs/Symptoms as evidenced by 12.5% wt loss x 11 days, <50% po intake x >5 days prior to admission and Po meeting less than 50% estimated nutrition needs. 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 Dietitian Recommendations/Changes Will liberalize diet to Carbohydrate-Controlled/Sodium -Restricted (no fat restriction/cardiac) d/t signs /symptoms of malnutrition; monitor need to restrict K+/ protein given renal status. Continue 120 ml vanilla glucerna shake w/ meals for increased nutrition if consumed. Lab / Micro Data Result Diagrams: 02/06/21 06:25 02/06/21 06:25 Labs: Laboratory Results - last 24 hr 02/07/21 18:13: POC Glucose 175 H 02/07/21 22:11: POC Glucose 257 H 02/08/21 06:34: POC Glucose 78 02/08/21 11:40: POC Glucose 129 H Micro: Microbiology 02/02/21 18:20 Urine Catheter - Catheter Urine Culture - Final Vancomycin Resist. E. faecium Staphylococcus epidermidis Physical Exam Narrative Constitutional Narrative: Patient appears older than her stated age General Appearance: Patient is lethargic and hard to understand when she speaks Orientation / Consciousness: awake Exam Limitations: HEENT normocephalic, head/scalp atraumatic and moist oral mucous membranes Head and Scalp: normocephalic Eyes PERRL, EOMs intact bilaterally and conjunctivae normal Neck nuchal rigidity, supple, no JVD and thyroid normal General: trachea midline Resp normal respiratory effort, no retractions, no use of accessory muscles and clear to auscultation bilaterally Resp Narrative: tachypneic, coarse crackles bilaterally. mild wheezing. On 9L of oxygen Auscultation: Negative for rales, rhonchi or wheezes Cardio regular rate, regular rhythm, S1 normal heart sound, S2 normal heart sound, no murmurs, no rub and no gallops GI normal to inspection, nondistended, normoactive bowel sounds, soft to palpation, non-tender and non-distended Extremity no clubbing, cyanosis or edema General Extremity: no tenderness to palpation of joints or extremities Skin no rashes or lesions noted General Skin Exam: no breakdown Neuro CN's II-XII intact bilaterally, no focal motor deficits and no sensory deficits noted Sensorium / Orientation: awake and alert Speech: speech normal Motor Exam: strength 5/5 throughout Psych Patient appears somnolent and is hard to understand when she speaks Psych Narrative: Patient has a flat affect Assessment & Plan Assessment/Plan (1) COVID-19: PLAN: 1. COVID-19 pneumonia-patient is currently on baricitinib and dexamethasone. She is currently on empiric Zosyn, patient was not given remdesivir due to her renal function and window of treatment was surpassed. Patient is not very active in her room #2 acute hypoxic respiratory failure secondary to #1-pulse ox will be monitored, she will be required to be on 5 L or less of oxygen to go to an extended care facility according to the social service notes in her chart. #3 generalized debility-PT and OT will see the patient, at this time patient refuses to go to a long term facility, she will more than likely have to go however as she is not able to take care of her self at home. #4 noncompliance with medical regimen-it is not clear that the patient is taking her medications properly at home #5 chronic kidney disease stage IIIb secondary to type 2 diabetes, labs will be monitored #6 type 2 diabetes-continue to monitor blood sugars #7 severe protein and caloric malnutrition-nutritional services is seeing patient #8 Vancomycin-resistant Enterococcus in urine-these are at low numbers and appear to be colonization-patient is being treated with Zyvox by infectious diseases #9 somnolence/metabolic encephalopathy-patient seems less somnolent today, I will leave her Lyrica dosage where it is currently. Charges/Coding Visit Charges Inpatient E&M: 88189 Subs Hosp L2
[2021-02-08] MEDS: Tamsulosin HCl 0.4 MG Capsule PO (17:35)
[2021-02-08] MEDS: Ondansetron 4 MG/2 ML Vial IV (18:08)
[2021-02-08 18:21] LABS: Bedside Glucose 138 mg/dL (70-110)
[2021-02-08] MEDS: Atorvastatin Calcium 40 MG Tablet PO (22:44)
[2021-02-08] MEDS: Insulin Lispro 100 UNIT/ML INSULN.PEN SC (22:50)
[2021-02-08 23:21] LABS: Bedside Glucose 160 mg/dL (70-110)
[2021-02-09] VITALS (15 sets, daily range): BP systolic 137–169; BP diastolic 52–61; PULSE 69–82; RESP 16–23; TEMP 36.2–36.6; O2SAT 88–98
[2021-02-09] MEDS: guaiFENesin 10 ML UDC (200MG/10ML) 20 ML PO (04:50)
[2021-02-09] MEDS: hydrALAZINE 50 MG Tablet 100 MG PO ×3 (06:42→22:07)
[2021-02-09 06:50] LABS: Bedside Glucose 80 mg/dL (70-110)
[2021-02-09] MEDS: Lansoprazole 15 MG Capsule.DR 30 MG PO (09:45)
[2021-02-09] MEDS: Pregabalin 50 MG Capsule PO ×2 (09:45→22:08)
[2021-02-09] MEDS: dexAMETHasone 4 MG Tablet 6 MG PO (09:45)
[2021-02-09] MEDS: Aspirin 81 MG TAB.CHEW PO (09:46)
[2021-02-09] MEDS: amLODIPine 10 MG Tablet PO (09:46)
[2021-02-09] MEDS: Carvedilol 3.125 MG TABLET PO ×2 (09:46→22:08)
[2021-02-09] MEDS: NYSTATIN 500,000 UNIT/5 ML UDC 500000 UNIT PO ×4 (09:46→22:07)
[2021-02-09] MEDS: guaiFENesin 600 MG Tablet PO ×2 (09:46→22:08)
[2021-02-09] MEDS: Linezolid 600 MG Tablet PO ×2 (09:46→22:07)
[2021-02-09] MEDS: Menthol/Lanolin/Calamine/Znox 113 GM Tube 1 APPLIC TOPICAL ×2 (09:47→22:11)
[2021-02-09 12:45] LABS: Bedside Glucose 82 mg/dL (70-110)
--- NOTE | 2021-02-09 14:25 | PCM.PN.HOSP ---
Documented by User: Carlos BENITEZ 02/09/21 14:32 Subjective Subjective Patient is a 75-year-old female resting in bed, alert and orient x3. Patient reports feeling about the same from yesterday, but denies development of any new symptoms overnight. Does not appear to be in acute distress. Objective Data Objective Data Vital Signs: Vital Signs Temp Pulse Resp BP Pulse Ox 97.1 F L 77 23 H 160/58 H 92 02/09/21 09:40 02/09/21 09:40 02/09/21 09:40 02/09/21 09:40 02/09/21 12:09 Oxygen Flow Rate (L/min) [ 5 AMBULATING with Oxygen #2] Oxygen Flow Rate (L/min) [ 3 AMBULATING with Oxygen #1] Oxygen Flow Rate (L/min) [At 3 REST with Oxygen] Oxygen Flow Rate (L/min) 4 Oxygen Delivery Method Nasal Cannula Weight: 130 lb 1.164 oz Body Mass Index (BMI) 24.5 Intake & Output: Intake and Output for Last 24 Hours 02/07/21 02/08/21 02/09/21 23:59 23:59 23:59 Intake Total 955 / 955 1435 / 1435 290 / 290 Output Total 100 / 100 Balance 855 / 855 1435 / 1435 290 / 290 Medical Nutrition Assessment Dietitian: Malnutrition Criteria Met Start: 01/30/21 12:06 Freq: Status: Active Protocol: Document 02/03/21 14:37 RMA (Rec: 02/03/21 14:37 RMA [id number]) Nutrition Malnutrition Evidence of Malnutrition Exists Yes Malnutrition (severe): Acute Illness/Injury Evidenced By Suboptimal Energy Intake ( Severe),Weight Loss (Severe) Clinical Problem Acute Disease or Injury Related Malnutrition Etiology Severe protein/calorie malnutrition in the context of acute illness related to inadequate oral intake/ inability to meet est nutritional needs Signs/Symptoms as evidenced by 12.5% wt loss x 11 days, <50% po intake x >5 days prior to admission and Po meeting less than 50% estimated nutrition needs. 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 Dietitian Recommendations/Changes Will liberalize diet to Carbohydrate-Controlled/Sodium -Restricted (no fat restriction/cardiac) d/t signs /symptoms of malnutrition; monitor need to restrict K+/ protein given renal status. Continue 120 ml vanilla glucerna shake w/ meals for increased nutrition if consumed. Lab / Micro Data Result Diagrams: 02/06/21 06:25 02/06/21 06:25 Labs: Laboratory Results - last 24 hr 02/08/21 17:34: POC Glucose 138 H 02/08/21 22:50: POC Glucose 160 H 02/09/21 06:40: POC Glucose 80 02/09/21 12:41: POC Glucose 82 Micro: Microbiology 02/02/21 18:20 Urine Catheter - Catheter Urine Culture - Final Vancomycin Resist. E. faecium Staphylococcus epidermidis Physical Exam Const alert, oriented x3 and no apparent distress HEENT head/scalp atraumatic and moist oral mucous membranes Head and Scalp: normocephalic Eyes PERRL, EOMs intact bilaterally and conjunctivae normal Neck no lymphadenopathy, supple and no JVD Resp no retractions and no use of accessory muscles Effort and Inspection: tachypneic and respiratory distress Auscultation: diminished lung sounds Cardio regular rate, regular rhythm, no murmurs and no JVD GI normal to inspection, nondistended, normoactive bowel sounds, soft to palpation and non-tender Extremity normal to inspection, full ROM and no clubbing, cyanosis or edema Peripheral Pulses: Yes pulses 2+ throughout Skin no rashes or lesions noted, no wounds, skin turgor normal and no jaundice Neuro CN's II-XII intact bilaterally Psych affect normal Assessment & Plan Assessment/Plan (1) COVID-19: (2) Acute respiratory failure with hypoxia: PLAN: Day 12 Discharge planning: Currently [facility]. 1) COVID-19 pneumonia Patient is currently on Zosyn, baricitinib and dexamethasone per infectious disease. Patient was not given remdesivir due to her renal function. ID following. 2) acute hypoxic respiratory failure secondary to #1 Resolved. Patient is currently satting 92% on 4 L via nasal cannula. 3) generalized debility Patient to discharge to SNF for ongoing skilled care. 4) CKD stage IIIb Stable. Continue to monitor BMP. 5) DM2 Accu-Cheks with sliding scale insulin ordered. 6) severe protein calorie malnutrition Dietitian consult ordered. DVT prophylaxis - Eliquis Patient seen by Carlos Gan PA-C, under the supervision of Dr. Gilliam. Documented by User: Dr. Paco Gilliam MD 02/09/21 14:41 Objective Data Lab / Micro Data Result Diagrams: 02/06/21 06:25 02/06/21 06:25 Assessment & Plan Addt'l Comments This patient was seen in conjunction with Carlos Gan PA-C. I have independently interviewed and examined the patient and reviewed pertinent historical, laboratory, and other data. Please refer to Carlos Gan PA-C's note for details of this patient's presentation, findings, and recommendations. I have reviewed Carlos Gan PA-C's note and concur with documented findings. In brief, patient is a 75-year-old lady admitted with progressive shortness of breath diagnosed with SARS-CoV-2 pneumonia Physical Examination: GENERAL: cooperative but remains dyspneic at rest HEENT: Atraumatic; EYES; Anicteric, Normal Conjunctiva NECK; supple, normal thyroid, RESPIRATORY: Diminished to auscultation CARDIOVASCULAR: Regular S1 S2, GI: soft, normoactive bowel sounds, : No Renal angle tenderness; EXTREMITIES: No edema, no clubbing, MUSCULOSKELETAL: no muscle waisting NEURO: Awake; no lateralizing signs. SKIN: No Rash PSYCH; Flat affect Assessment: Acute hypoxic respiratory failure 2. SARS-CoV-2 pneumonia 3. Dyslipidemia 4. Physical deconditioning 5. Essential hypertension 6. Diabetes mellitus type 2 7. GERD 8. Severe protein calorie malnutrition in the context of acute illness as evidenced by inadequate oral intake, inability to meet estimated nutritional needs, weight loss. Plan consult placed to dietitian recommended liberalization of diet to carb control and sodium restricted in addition to nutritional supplements Recommendations: 1. I have discussed the results of my overview and impressions with the patient 2. Options for management were reviewed Charges/Coding Visit Charges Inpatient E&M: 25456 Subs Hosp L3
--- NOTE | 2021-02-09 15:24 | CASEMGMT ---
SW spoke with patient per her request. She told SW she has a new apartment. SW reminded patient she will need [facility] a [facility] facility before she can go to her new apartment. SW reminded her she told Ally one of other Social Workers that she would like [facility]. SW let her know [facility] can take her when she is ready. SARAH did check with Natalia at [facility] and they are still waiting on their O2 provider to get back to them about increasing their O2 capabilities. Yaneli Ward [employer]CTION[employer] TREATMENT SPECIALIST [facility]
--- NOTE | 2021-02-09 16:30 | PCM.PN.ID ---
Physical Exam Narrative Feeling better, some sputum, no fever Const alert General Appearance: cooperative Resp Auscultation: diminished lung sounds Cardio regular rate and regular rhythm GI normal to inspection, nondistended, normoactive bowel sounds Skin no rashes or lesions noted ID ID: Route of nutrition/ use of supplements: [] Nutritional Intake: [] IV Site: [] Alexandre Catheter: [] Assessment & Plan Assessment/Plan (1) COVID-19: PLAN: Sx started around 01/17. Unvaccinated. Covid (+) 01/24. Developed worsened O2. On dex. On baricitinib. Ucx with moderate VRE and MRSE. UA on admit with 25-50 wbc. With lethargy, leukocytosis, started linezolid for short course, stop date 02/11. Will follow (2) Acute respiratory failure with hypoxia:
[2021-02-09] MEDS: Tamsulosin HCl 0.4 MG Capsule PO (17:13)
[2021-02-09] MEDS: Insulin Lispro 100 UNIT/ML INSULN.PEN SC (17:13)
[2021-02-09 17:26] LABS: Bedside Glucose 181 mg/dL (70-110)
[2021-02-09] MEDS: Atorvastatin Calcium 40 MG Tablet PO (22:08)
[2021-02-09] MEDS: 0.9% Saline Lock 10 ML Syringe IV (22:09)
[2021-02-09 22:46] LABS: Bedside Glucose 142 mg/dL (70-110)
[2021-02-10] VITALS (13 sets, daily range): BP systolic 114–157; BP diastolic 47–98; PULSE 70–95; RESP 17–23; TEMP 36.4–36.9; O2SAT 90–94
[2021-02-10] MEDS: Loperamide 2 MG Capsule PO (00:48)
[2021-02-10] MEDS: 0.9% Saline Lock 10 ML Syringe IV ×2 (00:48→22:05)
[2021-02-10] MEDS: Ondansetron 4 MG/2 ML Vial IV (00:48)
[2021-02-10 05:38] LABS: Hematocrit 24.6 % (37-47); Hemoglobin 7.4 g/dL (12.0-15.0); Mean Corp Hgb Conc 30.1 g/dL (32-36); Mean Corpuscular Hgb 27.1 pg (27.0-32.0); Mean Corpuscular Volume 90.1 fL (81-99); Mean Platelet Vol. 11.9 fl (6.2-12.0); POSITIVE COUNT YES; POSITIVE MORPHOLOGY YES; Platelet Count 215 K/mm3 (150-450); RBC Distribution Width CV 16.2 % (11.6-14.6); RBC Distribution Width SD 52.6 fl (35.1-43.9); Red Blood Count 2.73 M/mm3 (4.2-5.4); White Blood Count 11.1 K/mm3 (4.4-11.0)
[2021-02-10 06:10] LABS: Differential Indicated MANUAL DIFF
[2021-02-10 06:19] LABS: ALB/GLOB Ratio 0.5 RATIO (0.9-2.4); AST(SGOT) 36 U/L (15-37); Alanine Aminotransfer ALT/SGPT 30 U/L (13-56); Albumin, Serum 2.1 g/dL (3.2-5.0); Alkaline Phosphatase 82 U/L (45-117); Anion Gap 9 (5-15); BUN 74 mg/dL (7-18); BUN/Creat Ratio 24.8 RATIO (10-20); Calcium,Total 7.5 mg/dL (8.5-10.1); Chloride 119 mmol/L (98-107); Creatinine, Serum 2.98 mg/dL (0.55-1.02); EST Glomerular Filtration Rate 16 mL/min (>60); Est Glom Filt Rate - Afr Amer 20 mL/min (>60); Estimated Creatinine Clearance 12.69 ml/min; Glucose 87 mg/dL (74-106); Magnesium 2.2 mg/dL (1.6-2.6); Protein, Total 6.1 g/dL (6.4-8.2); Sodium Level 147 mmol/L (136-145)
[2021-02-10] MEDS: hydrALAZINE 50 MG Tablet 100 MG PO ×3 (06:34→22:00)
[2021-02-10 06:46] LABS: Bedside Glucose 85 mg/dL (70-110)
[2021-02-10 06:54] LABS: Absolute Neutrophil Count 8.2 X10^3/uL (2.0-7.7)
[2021-02-10 06:55] LABS: Atypical Lymphocyte 2+ %; Lymphocyte 18 % (19-41); Metamyelocyte 2 % (0-1); Monocyte 4 % (0-10); Myelocyte 2 % (0-0); Neutrophil-Band 3 % (0-5); Neutrophil-Segmented 71 % (47-70); Platelet Estimate ADEQUATE (ADEQ)
[2021-02-10 06:56] LABS: Red Cell Morphology NORM C+C NORMAL (NORM C&C)
--- NOTE | 2021-02-10 08:56 | CASEMGMT ---
SW faxed PT/OT notes from yesterday to [facility]. Patient was 89% on 5L with activity. Max O2 at [facility] is 5L. SW will check with [facility]. Yaneli BANEGAS
[2021-02-10] MEDS: dexAMETHasone 4 MG Tablet 6 MG PO (10:04)
[2021-02-10] MEDS: Carvedilol 3.125 MG TABLET PO ×2 (10:05→22:01)
[2021-02-10] MEDS: NYSTATIN 500,000 UNIT/5 ML UDC 500000 UNIT PO ×4 (10:05→22:00)
[2021-02-10] MEDS: amLODIPine 10 MG Tablet PO (10:06)
[2021-02-10] MEDS: Aspirin 81 MG TAB.CHEW PO (10:06)
[2021-02-10] MEDS: Lansoprazole 15 MG Capsule.DR 30 MG PO (10:06)
[2021-02-10] MEDS: Linezolid 600 MG Tablet PO ×2 (10:06→22:00)
[2021-02-10] MEDS: guaiFENesin 600 MG Tablet PO ×2 (10:06→22:01)
[2021-02-10] MEDS: Menthol/Lanolin/Calamine/Znox 113 GM Tube 1 APPLIC TOPICAL ×2 (10:08→21:52)
[2021-02-10] MEDS: Pregabalin 50 MG Capsule PO ×2 (10:11→22:01)
--- NOTE | 2021-02-10 11:45 | PN.HOSP_ITS ---
Documented by User: Carlos BENITEZ 02/10/21 11:53 Subjective Subjective Patient is a 75-year-old female comfortably resting in a chair, alert and orient x3. Patient denies development of any new symptoms overnight and feel that her shortness of breath is stable. Patient does not appear in acute distress. Objective Data Objective Data Vital Signs: Vital Signs Temp Pulse Resp BP Pulse Ox 97.9 F 76 18 151/47 H 90 02/10/21 10:00 02/10/21 10:00 02/10/21 10:00 02/10/21 06:34 02/10/21 10:00 Oxygen Flow Rate (L/min) [ 5 AMBULATING with Oxygen #2] Oxygen Flow Rate (L/min) [ 3 AMBULATING with Oxygen #1] Oxygen Flow Rate (L/min) [At 3 REST with Oxygen] Oxygen Flow Rate (L/min) 4 Oxygen Delivery Method Nasal Cannula Weight: 130 lb 1.164 oz Body Mass Index (BMI) 24.5 Intake & Output: Intake and Output for Last 24 Hours 02/08/21 02/09/21 02/10/21 23:59 23:59 23:59 Intake Total 1435 / 1435 340 / 580 290 / 290 Balance 1435 / 1435 340 / 580 290 / 290 Medical Nutrition Assessment Dietitian: Malnutrition Criteria Met Start: 01/30/21 12:06 Freq: Status: Active Protocol: Document 02/03/21 14:37 RMA (Rec: 02/03/21 14:37 RMA [id number]) Nutrition Malnutrition Evidence of Malnutrition Exists Yes Malnutrition (severe): Acute Illness/Injury Evidenced By Suboptimal Energy Intake ( Severe),Weight Loss (Severe) Clinical Problem Acute Disease or Injury Related Malnutrition Etiology Severe protein/calorie malnutrition in the context of acute illness related to inadequate oral intake/ inability to meet est nutritional needs Signs/Symptoms as evidenced by 12.5% wt loss x 11 days, <50% po intake x >5 days prior to admission and Po meeting less than 50% estimated nutrition needs. 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 Dietitian Recommendations/Changes Will liberalize diet to Carbohydrate-Controlled/Sodium -Restricted (no fat restriction/cardiac) d/t signs /symptoms of malnutrition; monitor need to restrict K+/ protein given renal status. Continue 120 ml vanilla glucerna shake w/ meals for increased nutrition if consumed. Lab / Micro Data Result Diagrams: 02/10/21 05:08 02/10/21 05:08 Labs: Laboratory Results - last 24 hr 02/09/21 12:41: POC Glucose 82 02/09/21 17:11: POC Glucose 181 H 02/09/21 22:10: POC Glucose 142 H 02/10/21 05:08: WBC 11.1 H, RBC 2.73 L, Hgb 7.4 L, Hct 24.6 L, MCV 90.1, MCH 27.1, MCHC 30.1 L, RDW Std Deviation 52.6 H, RDW Coeff of Wade 16.2 H, Plt Count 215, MPV 11.9, Neut % (Auto) Not Reportable, Absolute Neuts (auto) 8.2 H, Absolute Lymphs (auto) 2.00, Neutrophils % (Manual) 71 H, Band Neutrophils % 3, Lymphocytes % (Manual) 18 L, Monocytes % (Manual) 4, Metamyelocytes % 2 H, Myelocytes % 2 H, Diff Path Review May foll, Atypical Lymphocytes 2+, Platelet Estimate ADEQUATE, RBC Morphology NORM C+C 02/10/21 05:08: Sodium 147 H, Potassium 4.0, Chloride 119 H, Carbon Dioxide 19.0 L, Anion Gap 9, BUN 74 H, Creatinine 2.98 H, Estim Creat Clear Calc 12.69, Est GFR (MDRD) Af Amer 20 L, Est GFR (MDRD) Non-Af 16 L, BUN/Creatinine Ratio 24.8 H , Glucose 87, Calcium 7.5 L, Magnesium 2.2, Total Bilirubin 0.40, AST 36, ALT 30, Alkaline Phosphatase 82, Total Protein 6.1 L, Albumin 2.1 L, Globulin 4.0, Albumin/Globulin Ratio 0.5 L 02/10/21 06:36: POC Glucose 85 Micro: Microbiology 02/02/21 18:20 Urine Catheter - Catheter Urine Culture - Final Vancomycin Resist. E. faecium Staphylococcus epidermidis Physical Exam Const alert, oriented x3 and no apparent distress Nutritional Appearance: underweight HEENT head/scalp atraumatic and moist oral mucous membranes Head and Scalp: normocephalic Eyes PERRL, EOMs intact bilaterally and conjunctivae normal Neck no lymphadenopathy, supple and no JVD Resp normal respiratory effort, no retractions, no use of accessory muscles and clear to auscultation bilaterally Cardio regular rate, regular rhythm, no murmurs and no JVD GI normal to inspection, nondistended, normoactive bowel sounds, soft to palpation, non-tender and non-distended Extremity normal to inspection, full ROM and no clubbing, cyanosis or edema Peripheral Pulses: Yes pulses 2+ throughout Skin no rashes or lesions noted, no wounds, skin turgor normal and no jaundice Neuro CN's II-XII intact bilaterally Psych affect normal Assessment & Plan Assessment/Plan (1) Acute respiratory failure with hypoxia: (2) Hyperglycemia: (3) COVID-19: (4) Leukocytosis: PLAN: Day 13 Discharge planning: Currently awaiting acceptance from [facility]. 1) COVID-19 pneumonia Patient is currently on Zosyn, Linezolid, baricitinib and dexamethasone per infectious disease. Patient was not given remdesivir due to her renal function. ID following. 2) acute hypoxic respiratory failure secondary to #1 Resolved. Patient is currently satting 92% on 4 L via nasal cannula. 3) generalized debility Patient to discharge to SNF for ongoing skilled care. 4) CKD stage IIIb Stable. Continue to monitor BMP. 5) DM2 Accu-Cheks with sliding scale insulin ordered. 6) severe protein calorie malnutrition Dietitian consult ordered. DVT prophylaxis - Eliquis Patient seen by Carlos Gan PA-C, under the supervision of Dr. Gilliam. Documented by User: Dr. Paco Gilliam MD 02/10/21 13:43 Objective Data Lab / Micro Data Result Diagrams: 02/10/21 05:08 02/10/21 05:08 Assessment & Plan Addt'l Comments This patient was seen in conjunction with Carlos Gan PA-C. I have independently interviewed and examined the patient and reviewed pertinent historical, laboratory, and other data. Please refer to Carlos Gan PA-C's note for details of this patient's presentation, findings, and recommendations. I have reviewed Carlos Gan PA-C's note and concur with documented findings. In brief, patient is a 75-year-old lady admitted with progressive shortness of breath diagnosed with SARS-CoV-2 pneumonia 02/10/2021; patient seen still remains relatively dyspneic at rest. Hemoglobin down to 7.4. Monitoring H&H with plans to transfuse patient become symptomatic hemoglobin falls below 7. Physical Examination: GENERAL: cooperative but remains dyspneic at rest HEENT: Atraumatic; EYES; Anicteric, Normal Conjunctiva NECK; supple, normal thyroid, RESPIRATORY: Diminished to auscultation CARDIOVASCULAR: Regular S1 S2, GI: soft, normoactive bowel sounds, : No Renal angle tenderness; EXTREMITIES: No edema, no clubbing, MUSCULOSKELETAL: no muscle waisting NEURO: Awake; no lateralizing signs. SKIN: No Rash PSYCH; Flat affect Assessment: 1. Acute hypoxic respiratory failure 2. SARS-CoV-2 pneumonia 3. Dyslipidemia 4. Physical deconditioning 5. Essential hypertension 6. Diabetes mellitus type 2 7. GERD 8. Severe protein calorie malnutrition in the context of acute illness as evidenced by inadequate oral intake, inability to meet estimated nutritional needs, weight loss. Plan consult placed to dietitian recommended liberalization of diet to carb control and sodium restricted in addition to nutritional s upplements 9. Anemia secondary to anemia of chronic disorder Recommendations: 1. I have discussed the results of my overview and impressions with the patient 2. Options for management were reviewed Charges/Coding Visit Charges Inpatient E&M: 91397 Subs Hosp L3
[2021-02-10 12:10] LABS: Bedside Glucose 124 mg/dL (70-110)
[2021-02-10 13:48] LABS: Pathologist Review Reviewed
[2021-02-10 16:46] LABS: Platelet Count 216 K/mm3 (150-450); RET-HE 36.6 pg (30-35); Reticulocyte Count 2.69 % (0.5-1.5)
[2021-02-10 16:50] LABS: Bedside Glucose 152 mg/dL (70-110)
[2021-02-10 16:56] LABS: Ferritin 667 ng/mL (8-252); Iron 145 ug/dL (50-170); Iron Binding Capacity,Total 187 ug/dL (250-450); PERCENT IRON SATURATION 77.5 % (15.0-55.0)
[2021-02-10] MEDS: Insulin Lispro 100 UNIT/ML INSULN.PEN SC (17:41)
[2021-02-10] MEDS: Tamsulosin HCl 0.4 MG Capsule PO (17:41)
[2021-02-10 20:23] LABS: Vitamin B12 965 pg/mL (211-911)
[2021-02-10] MEDS: guaiFENesin 10 ML UDC (200MG/10ML) 20 ML PO (21:53)
[2021-02-10] MEDS: Atorvastatin Calcium 40 MG Tablet PO (22:01)
[2021-02-10 22:25] LABS: Bedside Glucose 124 mg/dL (70-110)
[2021-02-11] VITALS (16 sets, daily range): BP systolic 146–167; BP diastolic 49–63; PULSE 69–84; RESP 16–20; TEMP 36.6–36.7; O2SAT 91–96
[2021-02-11] MEDS: guaiFENesin 10 ML UDC (200MG/10ML) 20 ML PO ×2 (06:44→14:25)
[2021-02-11] MEDS: hydrALAZINE 50 MG Tablet 100 MG PO ×3 (06:44→21:14)
[2021-02-11 06:50] LABS: Bedside Glucose 67 mg/dL (70-110)
--- NOTE | 2021-02-11 06:56 | NURSING ---
Patient blood sugar 67 given cookie and apple juice. Will recheck in 15 minutes.
[2021-02-11 07:46] LABS: Bedside Glucose 116 mg/dL (70-110)
[2021-02-11 07:57] LABS: Absolute Lymphocyte Count 1.25 X10^3/uL (0.83-4.51); Basophil# 0.01 X10^3/uL; Basophil% 0.1 % (0-1); Eosinophil# 0.01 X10^3/uL; Eosinophils% 0.1 % (0-5); Hemoglobin 7.3 g/dL (12.0-15.0); Lymphocyte # 1.25 X10^3/ul (0.83-4.51); Lymphocyte % 13.9 % (19-41); Mean Corp Hgb Conc 30.4 g/dL (32-36); Mean Corpuscular Hgb 27.3 pg (27.0-32.0); Mean Corpuscular Volume 89.9 fL (81-99); Mean Platelet Vol. 11.7 fl (6.2-12.0); Monocyte# 0.37 X10^3/uL; Monocyte% 4.1 % (0-10); NRBC Flagged by Analyzer 0 % (0-5); Neutrophil # 6.99 X10^3/uL (2.7-7.7); Neutrophil % 77.7 % (47-70); Platelet Count 187 K/mm3 (150-450); RBC Distribution Width CV 16.3 % (11.6-14.6); Red Blood Count 2.67 M/mm3 (4.2-5.4)
[2021-02-11 08:25] LABS: ALB/GLOB Ratio 0.6 RATIO (0.9-2.4); AST(SGOT) 47 U/L (15-37); Alanine Aminotransfer ALT/SGPT 32 U/L (13-56); Albumin, Serum 2.1 g/dL (3.2-5.0); Alkaline Phosphatase 83 U/L (45-117); Anion Gap 8 (5-15); BUN 70 mg/dL (7-18); BUN/Creat Ratio 23.6 RATIO (10-20); Calcium,Total 7.5 mg/dL (8.5-10.1); Chloride 121 mmol/L (98-107); Creatinine, Serum 2.97 mg/dL (0.55-1.02); EST Glomerular Filtration Rate 16 mL/min (>60); Est Glom Filt Rate - Afr Amer 20 mL/min (>60); Estimated Creatinine Clearance 12.73 ml/min; Globulin 3.8 g/dL (2.2-4.2); Glucose 62 mg/dL (74-106); Potassium 3.9 mmol/L (3.5-5.1); Protein, Total 5.9 g/dL (6.4-8.2); Sodium Level 148 mmol/L (136-145)
--- NOTE | 2021-02-11 09:29 | CASEMGMT ---
SARAH called Natalia at [facility] and left her a voice mail. SARAH asked if they have had any luck with obtaining higher O2 concentrators. Yaneli Ward [employer]
[2021-02-11] MEDS: Lansoprazole 15 MG Capsule.DR 30 MG PO (10:38)
[2021-02-11] MEDS: Pregabalin 50 MG Capsule PO ×2 (10:38→21:14)
[2021-02-11] MEDS: NYSTATIN 500,000 UNIT/5 ML UDC 500000 UNIT PO ×4 (10:38→21:25)
[2021-02-11] MEDS: Aspirin 81 MG TAB.CHEW PO (10:38)
[2021-02-11] MEDS: amLODIPine 10 MG Tablet PO (10:38)
[2021-02-11] MEDS: dexAMETHasone 4 MG Tablet 6 MG PO (10:38)
[2021-02-11] MEDS: Carvedilol 3.125 MG TABLET PO ×2 (10:38→21:14)
[2021-02-11] MEDS: guaiFENesin 600 MG Tablet PO ×2 (10:38→21:14)
--- NOTE | 2021-02-11 10:43 | TREXTCAR_ITS ---
Diet 02/03/21 14:34 Diet: Carbohydrate Controlled Food consistency:: Regular Liquid Consistency:: Regular/Thin Dietary Modifications:: Sodium Restricted Type of Dietary Supplement:: Glucerna Shake Is pt able to select menu?: Yes Diet Comments: 120 ml vanilla glucerna shake w/ meals Therapies Physical Therapy: Eval and Treat Occupational Therapy: Eval and Treat Speech Therapy: Eval and Treat Problem/Diagnosis (1) Acute respiratory failure with hypoxia: Status: Acute (2) Hyperglycemia: Status: Acute (3) COVID-19: Status: Acute (4) Leukocytosis: Status: Acute Allergies/Procedures Done in Hospital Allergies blue dye Allergy (Verified 01/18/21 12:11) PASS OUT Type of Care/Length of Stay Estimated LOS: Convalescent Care Less Than 30 days Type of Care Needed: Skilled Rehab Potential: Good Prognosis: Good Additional Orders/Day of Discharge Day of Discharge: 02/11/21 Dietary and Speech Recommendations Dietitian Recommendations/Changes: Will provide diet: Carbohydrate-Controlled/Sodium-Restricted (no fat restriction/cardiac) d/t signs/symptoms of malnutrition; monitor need to restrict K+/protein given renal status. Continue 120 ml vanilla glucerna shake w/ meals for increased nutrition if consumed. Discharge Plan Admission Admit Date/Time: 01/29/21 16:00 Primary Reason for Your Visit: Shortness of breath Attending Provider: Paco Gilliam Primary Care Provider: Shawn Almeida Consulting Providers: Bronson Olivera ; Sekou Fernandez ; Nicholas Mcfarland ; Elizabeth Reeves CARDIOVASCULAR DISEASE SPECIALIST ; Ashlyn Kaminski Discharge Orders/Prescriptions Prescriptions: Continued atorvastatin 40 MG tablet 40 mg PO QHS RF: 0 amlodipine 10 MG tablet 10 mg PO DAILY RF: 0 lansoprazole 30 mg Capsule,Delayed Release(Dr/Ec) 30 mg PO DAILY RF: 0 pregabalin 50 MG capsule 50 mg PO TID Qty: 0 RF: 0 hydralazine 50 mg tablet 100 mg PO TID RF: 0 docusate sodium [DOK] 100 MG capsule 100 mg PO DAILY RF: 0 ondansetron 4 mg tablet,disintegrating 4 mg PO TID PRN (Reason: nausea and vomiting) 3 Days Qty: 10 RF: 0 acetaminophen [Tylenol] 325 mg Tablet 650 mg PO Q4H PRN PRN (Reason: Fever, pain 1-10/10) Qty: 0 RF: 0 guaifenesin 100 mg/5 mL Liquid 20 ml PO Q4H PRN PRN (Reason: COUGH) Qty: 0 RF: 0 carvedilol 3.125 mg tablet 3.125 mg PO BID RF: 0 tamsulosin 0.4 mg capsule 0.4 mg PO DAILY@1730 RF: 0 aspirin 81 mg tablet,chewable 81 mg PO DAILY RF: 0 insulin lispro [Humalog KwikPen Insulin] 100 unit/mL insulin pen See Protocol unit subcut ACHS RF: 0 Lantus Solostar U-100 Insulin 100 unit/mL (3 mL) insulin pen 10 unit subcut QPM RF: 0 Eliquis 5 mg tablet 10 mg PO BID RF: 0 dexamethasone [Decadron] 6 mg tablet 6 mg PO DAILY Qty: 0 RF: 0 Referrals / Follow Up: Shawn Almeida MD [Primary Care Provider] - Within 2 Weeks Disposition Disposition (needs filled in before D/C Order can be placed): Home, Self Care
[2021-02-11] MEDS: Menthol/Lanolin/Calamine/Znox 113 GM Tube 1 APPLIC TOPICAL ×2 (10:51→21:27)
[2021-02-11] MEDS: Linezolid 600 MG Tablet PO ×2 (10:51→21:14)
[2021-02-11 11:05] LABS: Bedside Glucose 102 mg/dL (70-110)
--- NOTE | 2021-02-11 12:02 | PHA.DC.MR ---
Pharmacy Service has performed discharge medication reconciliation for this patient. The patient's discharge medication list was reviewed for discrepancies and discrepancies were resolved. This [facility] spoke to Carlos Gan regarding baricitinib. Patients usually do not go home and complete therapy. Typically, doses are stopped when they are discharged. He confirmed with Dr. Olivera that she does not need antibiotics or baricitinib. TORB to D/C baricitinib. New med list printed, signed, and given to Yaneli (SARAH). Home Medications amlodipine 10 mg PO DAILY 06/05/18 atorvastatin 40 mg PO QHS 06/05/18 lansoprazole 30 mg PO DAILY 11/03/20 pregabalin 50 mg PO TID #0 cap 11/07/20 ondansetron 4 mg PO TID PRN 3 Days #10 tab 12/02/20 docusate sodium [DOK] 100 mg PO DAILY 12/17/20 hydralazine 100 mg PO TID 12/17/20 acetaminophen [Tylenol] 650 mg PO Q4H PRN PRN #0 tab 01/21/21 guaifenesin 20 ml PO Q4H PRN PRN #0 ml 01/21/21 Eliquis 10 mg PO BID 01/29/21 Lantus Solostar U-100 Insulin 10 unit SUBCUT QPM 01/29/21 aspirin 81 mg PO DAILY 01/29/21 carvedilol 3.125 mg PO BID 01/29/21 insulin lispro [Humalog KwikPen Insulin] See Protocol SUBCUT ACHS 01/29/21 tamsulosin 0.4 mg PO DAILY@1730 01/29/21 dexamethasone [Decadron] 6 mg PO DAILY #0 tab 02/11/21
--- NOTE | 2021-02-11 13:50 | CASEMGMT ---
SARAH received a call from Natalia at [facility] and they have a concentrator that will go up to 10L. Patient can go today. SARAH notified physician. SARAH faxed all necessary information to [facility] to obtain a level of care. SARAH faxed orders to [facility]. SARAH called patient's daughter, Brandi and let her know that patient will be going to [facility] in [place] today. She thanked SARAH for the update. Once SARAH obtains the level of care SARAH will arrange transportation. Yaneli BANEGAS
--- NOTE | 2021-02-11 14:16 | DS.PCM_ITS ---
Documented by User: Carlos BENITEZ 02/11/21 14:20 Providers Date of Admission: 01/29/21 Primary Care Physician: Dr. Shawn Almeida MD Consultations 02/02/21 13:51 Consult: Infectious Disease Routine Consulting Provider: Bronson Olivera Reason for Consult: acute respiratory failure due to COVID EMERGENT Consult: No MD Notified: Yes Date Notified: 02/02/21 Time Notified: 13:51 Method of Notification: Verbal 02/02/21 15:02 Consult: Stockbroking Dealer / Pulmonary Medicine Routine Consulting Provider: Pulmonary Medicine [facility] Reason for Consult: acute hypoxic respiratory failure due to COVID EMERGENT Consult: No Notified: Yes Date Notified: 02/02/21 Time Notified: 15:03 Method of Notification: Text 02/02/21 16:16 Consult: Urology Routine Consulting Provider: Ashlyn Kaminski Reason for Consult: hematuria EMERGENT Consult: No Notified: Yes Date Notified: 02/02/21 Time Notified: 16:16 Method of Notification: Verbal Reason For Visit: hyperglycemia Diagnosis Discharge Diagnosis (1) Acute respiratory failure with hypoxia: Status: Acute Code(s): J96.01 - Acute respiratory failure with hypoxia (2) Hyperglycemia: Status: Acute Code(s): R73.9 - Hyperglycemia, unspecified (3) COVID-19: Status: Acute Code(s): U07.1 - COVID-19 (4) Leukocytosis: Status: Acute Code(s): D72.829 - Elevated white blood cell count, unspecified Medications at Discharge Home Medications amlodipine 10 mg PO DAILY 06/05/18 atorvastatin 40 mg PO QHS 06/05/18 lansoprazole 30 mg PO DAILY 11/03/20 pregabalin 50 mg PO TID #0 cap 11/07/20 ondansetron 4 mg PO TID PRN 3 Days #10 tab 12/02/20 docusate sodium [DOK] 100 mg PO DAILY 12/17/20 hydralazine 100 mg PO TID 12/17/20 acetaminophen [Tylenol] 650 mg PO Q4H PRN PRN #0 tab 01/21/21 guaifenesin 20 ml PO Q4H PRN PRN #0 ml 01/21/21 Eliquis 10 mg PO BID 01/29/21 Lantus Solostar U-100 Insulin 10 unit SUBCUT QPM 01/29/21 aspirin 81 mg PO DAILY 01/29/21 carvedilol 3.125 mg PO BID 01/29/21 insulin lispro [Humalog KwikPen Insulin] See Protocol SUBCUT ACHS 01/29/21 tamsulosin 0.4 mg PO DAILY@1730 01/29/21 dexamethasone [Decadron] 6 mg PO DAILY #0 tab 02/11/21 Hospital Course Summary of Care Provided Minutes Spent on Discharge: 35 Hospital Course: [facility] 1) COVID-19 pneumonia Completed course of Zosyn, linezolid, baricitinib and dexamethasone while admitted. We will continue dexamethasone for 1 day while in residential to complete 10-day course. Patient was not given remdesivir due to her renal function. Patient is to follow-up with primary care provider within the next 2 weeks. 2) acute hypoxic respiratory failure secondary to #1 Resolved. Patient is currently satting 92% on 4 L via nasal cannula. 3) generalized debility Patient to discharge to SNF for ongoing skilled care. 4) CKD stage IIIb Stable. Continue to monitor BMP. 5) DM2 Accu-Cheks with sliding scale insulin ordered. 6) severe protein calorie malnutrition Dietitian consult ordered, diet to be continued while at SNF. Patient seen by Carlos Gan PA-C, under the supervision of Dr. Gilliam. Physical Exam Narrative Patient is a 75-year-old female comfortably resting in bed, alert and oriented x3. Patient reports improvement in her shortness of breath from admission and denies development of any new symptoms overnight. Does not appear in acute distress. Const alert, oriented x3 and no apparent distress HEENT normocephalic, head/scalp atraumatic, hearing grossly normal bilaterally and moist oral mucous membranes Eyes PERRL, EOMs intact bilaterally and conjunctivae normal Neck no lymphadenopathy, supple and no JVD Resp normal respiratory effort, no retractions, no use of accessory muscles and clear to auscultation bilaterally Cardio regular rate, regular rhythm, no murmurs and no JVD GI normal to inspection, nondistended, normoactive bowel sounds, soft to palpation and non-tender Extremity normal to inspection, full ROM and no clubbing, cyanosis or edema Skin no rashes or lesions noted, no wounds and skin turgor normal Neuro CN's II-XII intact bilaterally Psych affect normal Medical Records Data Medical Nutrition Assessment Dietitian: Malnutrition Criteria Met Start: 01/30/21 12:06 Freq: Status: Active Protocol: Document 02/03/21 14:37 RMA (Rec: 02/03/21 14:37 RMA [id number]) Nutrition Malnutrition Evidence of Malnutrition Exists Yes Malnutrition (severe): Acute Illness/Injury Evidenced By Suboptimal Energy Intake ( Severe),Weight Loss (Severe) Clinical Problem Acute Disease or Injury Related Malnutrition Etiology Severe protein/calorie malnutrition in the context of acute illness related to inadequate oral intake/ inability to meet est nutritional needs Signs/Symptoms as evidenced by 12.5% wt loss x 11 days, <50% po intake x >5 days prior to admission and Po meeting less than 50% estimated nutrition needs. 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 Dietitian Recommendations/Changes Will liberalize diet to Carbohydrate-Controlled/Sodium -Restricted (no fat restriction/cardiac) d/t signs /symptoms of malnutrition; monitor need to restrict K+/ protein given renal status. Continue 120 ml vanilla glucerna shake w/ meals for increased nutrition if consumed. Weight / BMI Weight Weight: 130 lb 1.164 oz Body Mass Index (BMI) 24.5 ABG / Lab / Microbiology Data Result Diagrams: 02/11/21 05:50 02/11/21 05:50 Laboratory: Laboratory Results - last 24 hr 02/10/21 05:08: Retic Count 2.69 H, Immature Retic Fraction 4.50, Retic Hgb Equivalent 36.6 H 02/10/21 05:08: Iron 145, TIBC 187 L, Iron Saturation 77.5 H, Ferritin 667 H 02/10/21 16:43: POC Glucose 152 H 02/10/21 16:45: Vitamin B12 965 H 02/10/21 21:48: POC Glucose 124 H 02/11/21 05:50: WBC 9.0, RBC 2.67 L, Hgb 7.3 L, Hct 24.0 L, MCV 89.9, MCH 27.3, MCHC 30.4 L, RDW Std Deviation 54.0 H, RDW Coeff of Wade 16.3 H, Plt Count 187, MPV 11.7, Immature Gran % (Auto) 4.100 H, Neut % (Auto) 77.7 H, Lymph % (Auto) 13.9 L, [place] % (Auto) 4.1, Eos % (Auto) 0.1, Baso % (Auto) 0.1, Absolute Neuts (auto) 7.0, Absolute Lymphs (auto) 1.25, Nucleated RBC % 0 02/11/21 05:50: Sodium 148 H, Potassium 3.9, Chloride 121 H, Carbon Dioxide 19.0 L, Anion Gap 8, BUN 70 H, Creatinine 2.97 H, Estim Creat Clear Calc 12.73, Est GFR (MDRD) Af Amer 20 L, Est GFR (MDRD) Non-Af 16 L, BUN/Creatinine Ratio 23.6 H , Glucose 62 L, Calcium 7.5 L, Total Bilirubin 0.50, AST 47 H, ALT 32, Alkaline Phosphatase 83, Total Protein 5.9 L, Albumin 2.1 L, Globulin 3.8, Albumin/Globulin Ratio 0.6 L 02/11/21 06:42: POC Glucose 67 L 02/11/21 07:41: POC Glucose 116 H 02/11/21 10:50: POC Glucose 102 Microbiology: Microbiology 02/02/21 18:20 Urine Catheter - Catheter Urine Culture - Final Vancomycin Resist. E. faecium Staphylococcus epidermidis Meaningful Use Info Meaningful Use Diagnoses (Choose all that apply): None applicable Discharge Plan Admission Admit Date/Time: 01/29/21 16:00 Primary Reason for Your Visit: Shortness of breath Attending Provider: Paco Gilliam Primary Care Provider: Shawn Almeida Consulting Providers: Bronson Olivera ; Sekou Fernandez ; Nicholas Mcfarland ; Elizabeth Reeves PUBLIC HEALTH SOCIAL WORKER ; Ashlyn Kaminski Discharge Orders/Prescriptions Prescriptions: Continued atorvastatin 40 MG tablet 40 mg PO QHS RF: 0 amlodipine 10 MG tablet 10 mg PO DAILY RF: 0 lansoprazole 30 mg Capsule,Delayed Release(Dr/Ec) 30 mg PO DAILY RF: 0 pregabalin 50 MG capsule 50 mg PO TID Qty: 0 RF: 0 hydralazine 50 mg tablet 100 mg PO TID RF: 0 docusate sodium [DOK] 100 MG capsule 100 mg PO DAILY RF: 0 ondansetron 4 mg tablet,disintegrating 4 mg PO TID PRN (Reason: nausea and vomiting) 3 Days Qty: 10 RF: 0 acetaminophen [Tylenol] 325 mg Tablet 650 mg PO Q4H PRN PRN (Reason: Fever, pain -01/18) Qty: 0 RF: 0 guaifenesin 100 mg/5 mL Liquid 20 ml PO Q4H PRN PRN (Reason: COUGH) Qty: 0 RF: 0 carvedilol 3.125 mg tablet 3.125 mg PO BID RF: 0 tamsulosin 0.4 mg capsule 0.4 mg PO DAILY@1730 RF: 0 aspirin 81 mg tablet,chewable 81 mg PO DAILY RF: 0 insulin lispro [Humalog KwikPen Insulin] 100 unit/mL insulin pen See Protocol unit subcut ACHS RF: 0 Lantus Solostar U-100 Insulin 100 unit/mL (3 mL) insulin pen 10 unit subcut QPM RF: 0 Eliquis 5 mg tablet 10 mg PO BID RF: 0 dexamethasone [Decadron] 6 mg tablet 6 mg PO DAILY Qty: 0 RF: 0 Referrals / Follow Up: Shawn Almeida MD [Primary Care Provider] - Within 2 Weeks Disposition Disposition (needs filled in before D/C Order can be placed): Home, Self Care Documented by User: Dr. Paco Gilliam MD 02/11/21 14:24 Providers Date of Admission: 01/29/21 Reason For Visit: hyperglycemia Medications at Discharge Home Medications amlodipine 10 mg PO DAILY 06/05/18 atorvastatin 40 mg PO QHS 06/05/18 lansoprazole 30 mg PO DAILY 11/03/20 pregabalin 50 mg PO TID #0 cap 11/07/20 ondansetron 4 mg PO TID PRN 3 Days #10 tab 12/02/20 docusate sodium [DOK] 100 mg PO DAILY 12/17/20 hydralazine 100 mg PO TID 12/17/20 acetaminophen [Tylenol] 650 mg PO Q4H PRN PRN #0 tab 01/21/21 guaifenesin 20 ml PO Q4H PRN PRN #0 ml 10/13/21 Eliquis 10 mg PO BID 01/29/21 Lantus Solostar U-100 Insulin 10 unit SUBCUT QPM 01/29/21 aspirin 81 mg PO DAILY 01/29/21 carvedilol 3.125 mg PO BID 01/29/21 insulin lispro [Humalog KwikPen Insulin] See Protocol SUBCUT ACHS 01/29/21 tamsulosin 0.4 mg PO DAILY@1730 01/29/21 dexamethasone [Decadron] 6 mg PO DAILY #0 tab 02/11/21 Hospital Course Operations None Summary of Care Provided Minutes Spent on Discharge: 35 Hospital Course: This patient was seen in conjunction with Carlos Gan PA-C. I have independently interviewed and examined the patient and reviewed pertinent historical, laboratory, and other data. Please refer to Carlos Gan PA-C's note for details of this patient's presentation, findings, and recommendations. I have reviewed Carlos Gan PA-C's note and concur with documented findings. In brief, patient is a 75-year-old lady admitted with progressive shortness of breath diagnosed with SARS-CoV-2 pneumonia Assessment: Acute hypoxic respiratory failure 2. SARS-CoV-2 pneumonia 3. Dyslipidemia 4. Physical deconditioning 5. Essential hypertension 6. Diabetes mellitus type 2 7. GERD 8. Severe protein calorie malnutrition in the context of acute illness as evid enced by inadequate oral intake, inability to meet estimated nutritional needs, weight loss. Plan consult placed to dietitian recommended liberalization of diet to carb control and sodium restricted in addition to nutritional supplements Hospital course; as documented above ABG / Lab / Microbiology Data Result Diagrams: 02/11/21 05:50 02/11/21 05:50 Discharge Plan Admission Admit Date/Time: 01/29/21 16:00 Primary Reason for Your Visit: Shortness of breath Attending Provider: Paco Gilliam Primary Care Provider: Shawn Almeida Consulting Providers: Bronson Olivera ; Sekou Fernandez ; Nicholas Mcfarland ; Elizabeth Bruno NP ; Ashlyn Kaminski Discharge Orders/Prescriptions Prescriptions: Continued atorvastatin 40 MG tablet 40 mg PO QHS RF: 0 amlodipine 10 MG tablet 10 mg PO DAILY RF: 0 lansoprazole 30 mg Capsule,Delayed Release(Dr/Ec) 30 mg PO DAILY RF: 0 pregabalin 50 MG capsule 50 mg PO TID Qty: 0 RF: 0 hydralazine 50 mg tablet 100 mg PO TID RF: 0 docusate sodium [DOK] 100 MG capsule 100 mg PO DAILY RF: 0 ondansetron 4 mg tablet,disintegrating 4 mg PO TID PRN (Reason: nausea and vomiting) 3 Days Qty: 10 RF: 0 acetaminophen [Tylenol] 325 mg Tablet 650 mg PO Q4H PRN PRN (Reason: Fever, pain 1-01/18) Qty: 0 RF: 0 guaifenesin 100 mg/5 mL Liquid 20 ml PO Q4H PRN PRN (Reason: COUGH) Qty: 0 RF: 0 carvedilol 3.125 mg tablet 3.125 mg PO BID RF: 0 tamsulosin 0.4 mg capsule 0.4 mg PO DAILY@1730 RF: 0 aspirin 81 mg tablet,chewable 81 mg PO DAILY RF: 0 insulin lispro [Humalog KwikPen Insulin] 100 unit/mL insulin pen See Protocol unit subcut ACHS RF: 0 Lantus Solostar U-100 Insulin 100 unit/mL (3 mL) insulin pen 10 unit subcut QPM RF: 0 Eliquis 5 mg tablet 10 mg PO BID RF: 0 dexamethasone [Decadron] 6 mg tablet 6 mg PO DAILY Qty: 0 RF: 0 Referrals / Follow Up: Shawn Almeida MD [Primary Care Provider] - Within 2 Weeks Disposition Disposition (needs filled in before D/C Order can be placed): Home, Self Care Hospital Course Consultations Consultations: Consultations 02/02/21 13:51 Consult: Infectious Disease Routine Consulting Provider: Bronson Olivera Reason for Consult: acute respiratory failure due to COVID EMERGENT Consult: No Notified: Yes Date Notified: 02/02/21 Time Notified: 13:51 Method of Notification: Verbal 02/02/21 15:02 Consult: Stockbroking Dealer / Pulmonary Medicine Routine Consulting Provider: Pulmonary Medicine [facility] [place] Reason for Consult: acute hypoxic respiratory failure due to COVID EMERGENT Consult: No Notified: Yes Date Notified: 02/02/21 Time Notified: 15:03 Method of Notification: Text 02/02/21 16:16 Consult: Urology Routine Consulting Provider: Wyneski,Ashlyn Reason for Consult: hematuria EMERGENT Consult: No MD Notified: Yes Date Notified: 02/02/21 Time Notified: 16:16 Method of Notification: Verbal Operations None
--- NOTE | 2021-02-11 14:45 | CASEMGMT ---
SARAH called [facility] and spoke with Brandi. Brandi said she is the only one reviewing level of care requests today. She is not sure she will get to patient's today, but she will try. Yaneli BANEGAS
[2021-02-11 15:30] LABS: Bedside Glucose 125 mg/dL (70-110)
[2021-02-11] MEDS: Insulin Lispro 100 UNIT/ML INSULN.PEN SC (15:30)
[2021-02-11 15:40] LABS: Bedside Glucose 167 mg/dL (70-110)
[2021-02-11] MEDS: Tamsulosin HCl 0.4 MG Capsule PO (17:07)
--- NOTE | 2021-02-11 17:09 | CASEMGMT ---
SARAH did not receive the level of care for patient from [facility]. SARAH notified Natalia at [facility] that patient will not be coming today. SARAH also notified relief charge nurse and patient's daughter Brandi. Yaneli Ward COST ACCOUNTANT BASSAM
--- NOTE | 2021-02-11 18:18 | PN.HOSP_ITS ---
Documented by User: Carlos BENITEZ 02/11/21 18:21 Hospitalist Note Patient was supposed to discharge today 02/11/2021, associated paperwork was established however level of care form was not received from [facility]. box storage worker called [facility] and advised him that patient will not discharge today and should be coming tomorrow 02/12/2021. All associated medications continued. Please refer to discharge summary from 02/11/2021 for associated physical exam findings and establish care plans. Patient seen by Carlos Gan PA-C, under the supervision of Dr. Gilliam.
[2021-02-11] MEDS: Acetaminophen 325 MG Tablet 650 MG PO (21:14)
[2021-02-11] MEDS: Atorvastatin Calcium 40 MG Tablet PO (21:14)
[2021-02-11 21:40] LABS: Bedside Glucose 142 mg/dL (70-110)
[2021-02-11] MEDS: Loperamide 2 MG Capsule PO (22:26)
--- NOTE | 2021-02-11 22:32 | NURSING ---
pt had 2 loose stools in 15 min immoduim given
[2021-02-12] VITALS (7 sets, daily range): BP systolic 150–182; BP diastolic 49–69; PULSE 73–92; RESP 17–20; TEMP 36.1–36.6; O2SAT 94–97
[2021-02-12] MEDS: hydrALAZINE 50 MG Tablet 100 MG PO (05:40)
[2021-02-12 05:55] LABS: Absolute Lymphocyte Count 1.28 X10^3/uL (0.83-4.51); Absolute Neutrophil Count 7.4 X10^3/uL (2.0-7.7); Basophil# 0.01 X10^3/uL; Basophil% 0.1 % (0-1); Eosinophil# 0.01 X10^3/uL; Eosinophils% 0.1 % (0-5); Hematocrit 24.8 % (37-47); Hemoglobin 7.6 g/dL (12.0-15.0); Lymphocyte # 1.28 X10^3/ul (0.83-4.51); Lymphocyte % 13.8 % (19-41); Mean Corp Hgb Conc 30.6 g/dL (32-36); Mean Corpuscular Hgb 27.6 pg (27.0-32.0); Mean Corpuscular Volume 90.2 fL (81-99); Mean Platelet Vol. 12.2 fl (6.2-12.0); Monocyte# 0.26 X10^3/uL; Monocyte% 2.8 % (0-10); NRBC Flagged by Analyzer 0 % (0-5); Neutrophil # 7.35 X10^3/uL (2.7-7.7); Neutrophil % 79.3 % (47-70); Platelet Count 172 K/mm3 (150-450); RBC Distribution Width CV 16.3 % (11.6-14.6); RBC Distribution Width SD 53.3 fl (35.1-43.9); Red Blood Count 2.75 M/mm3 (4.2-5.4); White Blood Count 9.3 K/mm3 (4.4-11.0)
[2021-02-12 06:30] LABS: Bedside Glucose 103 mg/dL (70-110)
[2021-02-12 06:45] LABS: ALB/GLOB Ratio 0.6 RATIO (0.9-2.4); AST(SGOT) 45 U/L (15-37); Alanine Aminotransfer ALT/SGPT 34 U/L (13-56); Albumin, Serum 2.2 g/dL (3.2-5.0); Alkaline Phosphatase 82 U/L (45-117); Anion Gap 7 (5-15); BUN 65 mg/dL (7-18); BUN/Creat Ratio 23.4 RATIO (10-20); Calcium,Total 7.6 mg/dL (8.5-10.1); Chloride 122 mmol/L (98-107); Creatinine, Serum 2.78 mg/dL (0.55-1.02); EST Glomerular Filtration Rate 18 mL/min (>60); Est Glom Filt Rate - Afr Amer 21 mL/min (>60); Globulin 3.7 g/dL (2.2-4.2); Glucose 112 mg/dL (74-106); Potassium 3.8 mmol/L (3.5-5.1); Protein, Total 5.9 g/dL (6.4-8.2); Sodium Level 147 mmol/L (136-145)
[2021-02-12] MEDS: Acetaminophen 325 MG Tablet 650 MG PO (08:46)
--- NOTE | 2021-02-12 09:57 | CASEMGMT ---
SW received the level of care from [facility]. SARAH faxed this to [facility]. SARAH arranged for patient to get picked up at 11a via cot. SARAH called Natalia at [facility] and left messages on her cell phone and office phone letting her know patient is coming today at 11a and level of care was faxed. SARAH called [facility] and let her know patient is leaving to go to [facility] today. SARAH also faxed d/c orders to [facility]. SARAH left a message for patient's daughter. SARAH notified RN and pathology secretary/transcriptionist. Plan: d/c to [facility] under intermediate level of care on a convalescent stay. [facility] will transport via cot. Yaneli BANEGAS
[2021-02-12] MEDS: Carvedilol 3.125 MG TABLET PO (10:01)
[2021-02-12] MEDS: Aspirin 81 MG TAB.CHEW PO (10:01)
[2021-02-12] MEDS: NYSTATIN 500,000 UNIT/5 ML UDC 500000 UNIT PO (10:02)
[2021-02-12] MEDS: Lansoprazole 15 MG Capsule.DR 30 MG PO (10:02)
[2021-02-12] MEDS: amLODIPine 10 MG Tablet PO (10:02)
[2021-02-12] MEDS: guaiFENesin 600 MG Tablet PO (10:02)
[2021-02-12] MEDS: dexAMETHasone 4 MG Tablet 6 MG PO (10:02)
[2021-02-12] MEDS: Menthol/Lanolin/Calamine/Znox 113 GM Tube 1 APPLIC TOPICAL (10:05)
[2021-02-12] MEDS: Pregabalin 50 MG Capsule PO (10:31)
[2021-02-12 10:45] LABS: Bedside Glucose 139 mg/dL (70-110)
--- NOTE | 2021-02-12 10:53 | NURSING ---
Report called to Lucie, nurse at [facility].
== END 2021-02-12 11:19 | disposition intermediate care facility (04) | DRG 137 ==
LOC: ED 15:58 → PCU 17:30
PROVIDERS: Internal Medicine; Internal Medicine Critical Care Medicine; Internal Medicine Infectious Disease; Admitting Provider Student in an Organized Health Care Education/Training Program; Emergency Provider Emergency Medicine; PCP Family Medicine; Visit Provider Internal Medicine
DX: U07.1 COVID-19 (principal); J12.82 Pneumonia due to coronavirus disease 2019; Z23 Encounter for immunization; J96.01 Acute respiratory failure with hypoxia; E11.22 Type 2 diabetes mellitus with diabetic chronic kidney disease; E11.65 Type 2 diabetes mellitus with hyperglycemia; I12.9 Hypertensive chronic kidney disease with stage 1 through stage 4 chronic kidney disease, or unspecified chronic kidney disease; K21.9 Gastro-esophageal reflux disease without esophagitis; E78.5 Hyperlipidemia, unspecified; I82.462 Acute embolism and thrombosis of left calf muscular vein; E43 Unspecified severe protein-calorie malnutrition; E11.40 Type 2 diabetes mellitus with diabetic neuropathy, unspecified; N18.4 Chronic kidney disease, stage 4 (severe); R62.7 Adult failure to thrive; N17.9 Acute kidney failure, unspecified; R31.9 Hematuria, unspecified; E87.5 Hyperkalemia; F32.A Depression, unspecified; F41.9 Anxiety disorder, unspecified; Z96.0 Presence of urogenital implants; R32 Unspecified urinary incontinence; G93.41 Metabolic encephalopathy; Z16.21 Resistance to vancomycin; D63.8 Anemia in other chronic diseases classified elsewhere; Z68.24 Body mass index [BMI] 24.0-24.9, adult; Z79.899 Other long term (current) drug therapy; Z79.82 Long term (current) use of aspirin; Z79.01 Long term (current) use of anticoagulants; Z79.4 Long term (current) use of insulin; Z87.891 Personal history of nicotine dependence; Z91.14 Patient's other noncompliance with medication regimen; Z28.3 Underimmunization status; Z22.39 Carrier of other specified bacterial diseases
CPT/HCPCS: 36415; 71045; 71250; 80048; 80053; 80076; 81001; 82009; 82607; 82728; 82962; 83540; 83550; 83605; 83735; 83880; 84145; 84484; 85025; 85027; 85045; 86140; 87077; 87086; 87088; 87186; 93005; 97110; 97150; 97162; 97166; 97530; 97535; 97802; 97803; 99251; 99285; J7030; J7050; 90686; A4216; G0463; J1940; J2405

== ENCOUNTER 2021-02-16 02:48 | Inpatient (IN) | payer MEDICAID, SELFPAY ==
[2021-02-16] VITALS (33 sets, daily range): BP systolic 104–170; BP diastolic 44–99; PULSE 86–137; RESP 12–96; TEMP 2.4–37.1; O2SAT 88–100; BMI 23.1
--- NOTE | 2021-02-16 02:58 | RAD_ITS ---
HISTORY: line placement EXAMINATION/TECHNIQUE: XR Chest 1 View AP view COMPARISON: Chest CT from 02/02/21 FINDINGS: LINES/DEVICES: Right jugular central line tip at upper SVC. LUNGS: Persistent multifocal patchy bilateral airspace opacities. No sizable pleural effusion. No pneumothorax detected. MEDIASTINUM AND CARDIOVASCULAR STRUCTURES: Heart size within normal limits for imaging technique. Atherosclerotic calcifications along the aorta. BONES AND SOFT TISSUES: Skeletal degenerative changes. RAD/CXR for Line Placement IMPRESSION: Persistent bilateral pulmonary airspace disease/infiltrate. at 0435 Reported and signed by: Shawn Krause MD Electronically Signed: Shawn Krause MD at 4:34 EST Tel , Service support ,
--- NOTE | 2021-02-16 02:59 | HP.PCM.HOS_ITS ---
HPI - General General Date of Admission: 02/16/21 Date of Service: 02/16/21 Chief Complaint: hematuria HPI Narrative DOMINICK NEELY, is a 75 F who presents from outside hospital with hematuria. History obtained from the physician who initially did not see her. Patient was having hematuria but he could not quantify how much hematuria. The other physician checked her stool and was heme positive but there was no overt melena nor hematochezia. Patient's hemoglobin was 6.7 and she is ordered a unit of blood. triple-lumen catheter placed. They had difficulty obtaining IV access the patient did have a right IJ She was ordered 1 unit at the outside hospital but currently that was not provided to her. The patient here is confused and unable provide any worthwhile history. At the outside hospital, patient received IV fluids, Pipracil/tazobactam and vancomycin for sepsis. Patient was just discharged from [facility] on the third. Patient had COVID-19 and completed course of Zosyn, linezolid, baricitinib Patient onset of Covid was and dexamethasone. 17 January. Patient acute hypoxic respiratory failure as well urology and since her hematuria imp foundroved no intervention was and hematuria. Patient was s during that hospitalization. [facility] Medical History Anxiety Chronic kidney disease, stage 3b Cognitive decline COVID-19 Depression Diabetes Gastric reflux GERD (gastroesophageal reflux disease) High cholesterol History of tobacco use HLD (hyperlipidemia) HTN (hypertension) Hydronephrosis Hypertension Injury of back Nephrolithiasis Non-smoker Pyelonephritis Shortness of breath on exertion Uncontrolled type 2 diabetes mellitus Uses wheelchair Home Medications amlodipine 10 mg PO DAILY 06/05/18 [History Last Taken 08/04/19] atorvastatin 40 mg PO QHS 06/05/18 [History Last Taken 08/04/19] lansoprazole 30 mg PO DAILY 11/03/20 [History Last Taken Unknown] pregabalin 50 mg PO TID #0 cap 11/07/20 [Rx Last Taken 08/04/19] ondansetron 4 mg PO TID PRN 3 Days #10 tab 12/02/20 [Rx Last Taken Unknown] docusate sodium [DOK] 100 mg PO DAILY 12/17/20 [History Last Taken Unknown] hydralazine 100 mg PO TID 12/17/20 [History Last Taken Unknown] acetaminophen [Tylenol] 650 mg PO Q4H PRN PRN #0 tab 01/21/21 [Rx Last Taken Unknown] guaifenesin 20 ml PO Q4H PRN PRN #0 ml 01/21/21 [Rx Last Taken Unknown] Eliquis 10 mg PO BID 01/29/21 [History Last Taken Unknown] Lantus Solostar U-100 Insulin 10 unit SUBCUT QPM 01/29/21 [History Last Taken Unknown] aspirin 81 mg PO DAILY 01/29/21 [History Last Taken Unknown] carvedilol 3.125 mg PO BID 01/29/21 [History Last Taken Unknown] insulin lispro [Humalog KwikPen Insulin] See Protocol SUBCUT ACHS 01/29/21 [History Last Taken Unknown] tamsulosin 0.4 mg PO DAILY@1730 01/29/21 [History Last Taken Unknown] dexamethasone [Decadron] 6 mg PO DAILY #0 tab 02/11/21 [Rx Last Taken Unknown] Allergy/AdvReac Type Severity Reaction Status Date / Time blue dye Allergy PASS OUT Verified 01/18/21 12:11 Family History Father Diabetes Mother Hypertension Surgical History H/O: hysterectomy History of cholecystectomy History of cystoscopy Social History household members: none Smoking Status: Former smoker alcohol intake: never substance use type: does not use ROS Review of Systems ROS Unobtainable: due to encephalopathy Vital Signs Vital Signs Vital Signs: 02/16/21 02:36 Temperature 37.1 C Temperature Source Temporal Pulse Rate 94 Respiratory Rate 22 H Blood Pressure [BP] 164/53 H Blood Pressure Mean [BP] 90 Blood Pressure Source [BP] Monitor Blood Pressure Position [BP] Semi-Fowlers Blood Pressure Location [BP] Left Arm Pulse Ox 90 Oxygen Flow Rate (L/min) 7 Weight Weight: 55.4 kg Body Mass Index (BMI) 23.1 Physical Exam Const no apparent distress Constitutional Narrative: Pale. Listless. Orientation / Consciousness: confused HEENT normocephalic Eyes EOMs intact bilaterally Eyes Narrative: No icterus Neck no lymphadenopathy Neck Narrative: Right IJ triple-lumen catheter. Appears to be some superficial bruising around the catheter site. Resp normal respiratory effort Resp Narrative: Diminished Cardio regular rate, regular rhythm, S1 normal heart sound and S2 normal heart sound GI normal to inspection, nondistended, normoactive bowel sounds, soft to palpation, non-tender and non-distended Extremity Extremity Narrative: No edema. Patient had ecchymosis in the right groin likely from a triple-lumen attempt. Skin Skin Narrative: Bruising in her neck from triple-lumen catheter as well as in her groin from likely IV access attempt. Neuro Neuro Narrative: Moves all extremities spontaneously. Sensorium / Orientation: alert Results Lab / Micro Data Attestation: I reviewed the patient's lab results. Lab results narrative: White count 24.3, hemoglobin 6.7, platelets 77. Urinalysis was red, cloudy, specific gravity 1.025, large blood, greater than 300 protein and small leuk esterase BMP: Sodium 149, creatinine 2.5 lactic acid was 1 BNP is 3544 Troponin 87.6 COVID-19 test was positive EKG Initial EKG: Attestation: I personally reviewed and interpreted this EKG as follows: Prior EKG tracings: available for review EKG Rhythm Intrepretation: Sinus Rhythm (Right bundle branch block. Unchanged from EKG on February 03.) Assessment & Plan Assessment/Plan (1) Sepsis: QUALIFIERS: Sepsis type: sepsis due to unspecified organism Sepsis acute organ dysfunction status: with acute organ dysfunction Severe sepsis acute organ dysfunction type: encephalopathy Severe sepsis shock status: without septic shock Qualified Code(s): A41.9 - Sepsis, unspecified organism; R65.20 - Severe sepsis without septic shock; G93.40 - Encephalopathy, unspecified (2) Thrombocytopenia: (3) Metabolic encephalopathy: (4) Acute blood loss anemia: (5) COVID-19: PLAN: 1. Sepsis * Suspected * Unclear source * Check cultures * Received pip/tazo and vanc at OSH * check CXR * received IVF at OSH 2. Thrombocytopenia * Platelets were normal when she was just discharged to 77,000 * Likely compounding her bleeding * Unclear if this is consumptive or if this is a DIC process * Hold aspirin and anticoagulation * Check D-dimer 3. Metabolic encephalopathy * Suspect due to sepsis * Check head CT * Hold pregabalin 4. Acute blood loss anemia * Will transfuse 1 unit. Apparently the unit that was ordered at the outside hospital was not administered. * Follow-up hemoglobin afterwards 5. Elevated troponin * Unclear significance * May be skewed given her CKD * Follow-up 6. Elevated BNP * Clinically does not appear to be in heart failure * Will check a chest x-ray 7. Heme positive stools * Monitor for hematochezia or melena. I was informed by the emergency room physician that the patient was not having that * May need to consider GI evaluation * Hold antiplatelet and anticoagulants 8. Recent COVID-19 * Patient completed quarantine when she was last here. Patient's was positive at the outside hospital. No additional treatment at this time. * Patient was treated with dexamethasone and baricitinib during her last admission 9. Diabetes mellitus type 2 * With Lantus as well as sliding scale 10. Hematuria * Monitor for now * Hold Eliquis as well as aspirin * Consider reevaluation 11. VTE prophylaxis with SCDs. Charges/Coding Visit Charges Inpatient E&M: 32757 Init Hosp L3
--- NOTE | 2021-02-16 03:11 | CT_ITS ---
HISTORY: encephalopathy EXAMINATION: CT Head or Brain W/O Contrast Injection TECHNIQUE: Multiple axial images were obtained of the brain without intravenous contrast. A radiation dose optimization technique was used for this scan. IV Contrast dosage and agent: None. COMPARISON: Head CT from 11/03/20 FINDINGS: BRAIN PARENCHYMA: No intra- or extra-axial hemorrhage. No evidence of acute major territorial infarct. No intracranial mass or mass effect. There is mild, chronic hypoattenuation of the deep cerebral white matter. Chronic involutional changes again noted. CSF SPACES: Prominent cerebral sulci secondary to involutional changes. No hydrocephalus. Basal cisterns are patent. Intracranial atherosclerotic calcifications. CALVARIUM, SKULL BASE, PARANASAL SINUSES AND MASTOID AIR CELLS: Intact calvarium. Trace fluid versus mucosal thickening within maxillary sinuses. Trace fluid within left mastoid air cells. ORBITS: No acute findings. CT/Brain/Head without Contrast IMPRESSION: Chronic involutional and white matter changes. No evidence of acute intracranial process. Trace left mastoid effusion with minimal bilateral maxillary sinus disease. Individualized dose optimization techniques were used for this CT. at 0635 Reported and signed by: Shawn Krause MD Electronically Signed: Shawn Krause MD at 6:34 EST Tel , Service support ,
[2021-02-16 04:24] LABS: Absolute Lymphocyte Count 0.87 X10^3/uL (0.83-4.51); Absolute Neutrophil Count 14.1 X10^3/uL (2.0-7.7); Basophil# 0.01 X10^3/uL; Basophil% 0.1 % (0-1); Eosinophil# 0.01 X10^3/uL; Eosinophils% 0.1 % (0-5); Hematocrit 16.9 % (37-47); Lymphocyte # 0.87 X10^3/ul (0.83-4.51); Lymphocyte % 5.6 % (19-41); Mean Corp Hgb Conc 29.6 g/dL (32-36); Mean Corpuscular Hgb 27.2 pg (27.0-32.0); Mean Corpuscular Volume 91.8 fL (81-99); Mean Platelet Vol. 12.3 fl (6.2-12.0); Monocyte# 0.46 X10^3/uL; Monocyte% 2.9 % (0-10); NRBC Flagged by Analyzer 0 % (0-5); Neutrophil # 14.13 X10^3/uL (2.7-7.7); Neutrophil % 90.2 % (47-70); POSITIVE COUNT YES; Platelet Count 48 K/mm3 (150-450); RBC Distribution Width SD 56.5 fl (35.1-43.9); Red Blood Count 1.84 M/mm3 (4.2-5.4); White Blood Count 15.7 K/mm3 (4.4-11.0)
[2021-02-16 04:28] LABS: Differential Indicated SCAN CRITERIA MET
[2021-02-16 04:30] LABS: International Normalized Ratio 2.4
[2021-02-16 04:38] LABS: Anisocytosis 2+
--- NOTE | 2021-02-16 04:40 | CT_ITS ---
HISTORY: acute blood loss anemia EXAMINATION: CT Abdomen And Pelvis W/O Contrast Injection TECHNIQUE: Helically acquired images were obtained of the abdomen and pelvis without oral or IV contrast. A radiation dose optimization technique was used for this scan. IV Contrast dosage and agent: None. Oral contrast: None. COMPARISON: Unenhanced CT abdomen and pelvis from 01/13/21 FINDINGS: LOWER CHEST: Multifocal patchy bilateral airspace consolidation. Borderline cardiomegaly with coronary arterial stent on the right. Small hiatal hernia. LIVER: Homogeneous. No concerning lesion. GALLBLADDER AND BILIARY TREE: Status post cholecystectomy. No significant biliary ductal dilation. KIDNEYS AND URETERS: Interval placement of left ureteral stent, extending from the interpolar calyx into urinary bladder. No significant hydronephrosis on the left. 6 mm stone within lower pole left kidney. Stable position of right ureteral stent extending from the ureterovesical junction into urinary bladder. Stable mild right hydronephrosis. ADRENAL GLANDS: Non-enlarged. SPLEEN: Normal size without discrete mass. PANCREAS: Somewhat atrophic. No discrete mass or peripancreatic inflammation. BOWEL: No evidence of acute appendicitis. No abnormal stomach or bowel distension. No focal inflammatory change observed. LYMPH NODES: No enlarged mesenteric or retroperitoneal lymph nodes. PERITONEUM and RETROPERITONEUM: No free air or significant free fluid. No other fluid collection. VESSELS: Atherosclerosis with no abdominal aortic aneurysm. URINARY BLADDER: Bilateral ureteral stents projecting into bladder lumen. REPRODUCTIVE ORGANS: No pelvic masses. ABDOMINAL WALL: Mild soft tissue swelling and trace gas at right groin with overlying compression device, likely secondary to recent femoral line placement attempt and removal versus recent catheterization. No large organized hematoma. Periumbilical ventral fat hernia is again noted. No bowel herniation. BONES: Stable skeletal degenerative changes. CT/Abdomen/Pelvis without Cont IMPRESSION: 1. Patchy bilateral pulmonary consolidation suggesting pneumonia. 2. Bilateral ureteral stents in place with mild residual right hydronephrosis. Nonobstructing 6 mm left renal stone. 3. Mild soft tissue swelling right groin secondary to recent central line removal and/or catheterization. 4. Other nonurgent findings within body of report. Individualized dose optimization techniques were used for this CT. at 0652 Reported and signed by: Shawn Krause MD Electronically Signed: Shawn Krause MD at 6:50 EST Tel , Service support ,
--- NOTE | 2021-02-16 04:43 | NURSING ---
0235: Patient arrived to unit. R IJ central line dressing saturated in blood and running down patient's back. Per squad, dressing was changed prior to departure. R IJ dressing changed. Patient found to have a blood covered pressure dressing to R groin site from attempted central line placement at outside hospital. Dressing changed and sand bag placed.
[2021-02-16 04:49] LABS: ALB/GLOB Ratio 0.6 RATIO (0.9-2.4); AST(SGOT) 27 U/L (15-37); Alanine Aminotransfer ALT/SGPT 26 U/L (13-56); Alkaline Phosphatase 78 U/L (45-117); Anion Gap 9 (5-15); BUN 49 mg/dL (7-18); BUN/Creat Ratio 21.5 RATIO (10-20); Calcium,Total 7.1 mg/dL (8.5-10.1); Chloride 123 mmol/L (98-107); Creatinine, Serum 2.28 mg/dL (0.55-1.02); EST Glomerular Filtration Rate 22 mL/min (>60); Est Glom Filt Rate - Afr Amer 27 mL/min (>60); Estimated Creatinine Clearance 16.58 ml/min; Globulin 3.6 g/dL (2.2-4.2); Glucose 244 mg/dL (74-106); Protein, Total 5.6 g/dL (6.4-8.2); Sodium Level 149 mmol/L (136-145)
[2021-02-16 04:52] LABS: Lactic Acid 1.3 mmol/L (0.4-1.9)
[2021-02-16 04:55] LABS: Troponin-I HS 82 pg/mL (3.0-54.0)
[2021-02-16] MEDS: hydrALAZINE 50 MG Tablet 100 MG PO ×2 (05:44→14:59)
[2021-02-16 05:56] LABS: Bedside Glucose 274 mg/dL (70-110)
--- NOTE | 2021-02-16 06:19 | PCM.RX.CS ---
Consult Pharmacy has been consulted to manage selected antiobiotic: Vancomycin Type of Consult: New start Labs: Sodium 149 mmol/L (136-145) H 02/16/21 04:00 Potassium 4.0 mmol/L (3.5-5.1) 02/16/21 04:00 Chloride 123 mmol/L (98-107) H 02/16/21 04:00 Carbon Dioxide 17.0 mmol/L (21.0-32.0) L 02/16/21 04:00 Anion Gap 9 (5-15) 02/16/21 04:00 BUN 49 mg/dL (7-18) H 02/16/21 04:00 Creatinine 2.28 mg/dL (0.55-1.02) H 02/16/21 04:00 Est GFR (MDRD) Af Amer 27 mL/min (>60) L 02/16/21 04:00 Est GFR (MDRD) Non-Af 22 mL/min (>60) L 02/16/21 04:00 BUN/Creatinine Ratio 21.5 RATIO (10-20) H 02/16/21 04:00 Glucose 244 mg/dL (74-106) H 02/16/21 04:00 Goal Trough: 15-20 mcg/mL Pharmacy Plan for Drug Dosing: Pharmacy Service will continue to monitor and adjust dosing as required. Medications Discontinued Medications Vancomycin HCl 1,250 mg/ (Sodium Chloride) 275 mls @ 167 mls/hr IV X1 ONE Stop: 02/16/21 05:08 Last Admin: 02/16/21 05:41 Dose: Infused Documented by: RANDOM LEVEL ORDERED FOR 02/17 IN AM PER CrCl < 20 Follow-Up Labs: Trough Vancomycin Labs to be done on [date and time ordered]: 02/17 @ 0600 RANDOM
[2021-02-16] MEDS: Insulin Lispro 100 UNIT/ML INSULN.PEN SC ×3 (06:42→16:09)
[2021-02-16 08:20] LABS: D-Dimer Quantitative (DVT/PE) 4.29 FEU/ug/m (0.27-0.49)
--- NOTE | 2021-02-16 08:57 | VDLE_ITS ---
Reason For Study: Elevated D- Dimer RIGHT LEFT GSV is normal. GSV is normal. CFV is compressible, spontaneous, phasic, CFV is compressible, spontaneous, phasic, competent and demonstrates normal competent, and demonstrates normal augmentation. augmentation. FV is compressible, spontaneous, phasic, FV is compressible, spontaneous, phasic, competent and demonstrates normal competent and demonstrates normal augmentation. augmentation. POP V is compressible, spontaneous, phasic, POP V is compressible, spontaneous, phasic, competent and demonstrates normal competent and demonstrates normal augmentation. augmentation. T/P Trunk is compressible. T/P Trunk is compressible. PTV is compressible. PTV is compressible. RT PerV is compressible. LT PerV is compressible. Procedure Lt SoleusV is dilated and non compressible This is a venous duplex using B-mode, color consistent with acute DVT, no change from flow and spectral Doppler. previous study done on 01/19/21. Exam performed portable in patient room. A preliminary report was called and/or faxed to Haydee WHALEY. VL/Venous Duplex US - Pj Extrem Interpretation Summary Deep venous thrombosis left soleus vein No additional evidence for proximal progression bilateral lower extremities jose m p venous system. Patent and compressible bilateral great saphenous veins Left soleus vein DVT first noted January 19, 2021 Ordering Physician: Shawnee Menon Referring Physician: Shawn Almeida Performed By: Neeta Toscano, SOFYA, RVT
--- NOTE | 2021-02-16 09:30 | CASEMGMT ---
Patient was just discharged from [facility] to [facility] in [place]. SARAH faxed updates to [facility]. SARAH will check with patient's daughter to confirm the plan is to return to [facility]. Patient is only A&O X2. Yaneli BANEGAS
--- NOTE | 2021-02-16 09:39 | PCM.CONS.GEN ---
Assessment & Plan Assessment/Plan (1) Hematuria: (2) Hydronephrosis: PLAN: await urine culture results continue odom catheter. if urine remains red, will proceed with continuous bladder irrigation, alum etc I do not appreciate clot on CT at this time. continue with supportive care HPI Consult Data Date of Consult: 02/16/21 HPI Narrative HPI Narrative: DOMINICK NEELY, is a 75 F who presents with symptomatic anemia from the nursing facility. She has history of bilateral ureteral obstruction with bilateral ureteral stents inserted. She is in the process of getting transferred here, triple lumen catheter, etc. She complains of feeling cold. No other specific complaints at present. [facility] Medical History (Updated 02/16/21 @ 10:[address] Ashlyn Kaminski MD) Anxiety Chronic kidney disease, stage 3b Cognitive decline COVID-19 Depression Diabetes Gastric reflux GERD (gastroesophageal reflux disease) Hematuria High cholesterol History of tobacco use HLD (hyperlipidemia) HTN (hypertension) Hydronephrosis Hydronephrosis Hypertension Injury of back Nephrolithiasis Non-smoker Pyelonephritis Shortness of breath on exertion Uncontrolled type 2 diabetes mellitus Uses wheelchair Home Medications amlodipine 10 mg PO DAILY 06/05/18 [History Last Taken 08/04/19] atorvastatin 40 mg PO QHS 06/05/18 [History Last Taken 08/04/19] lansoprazole 30 mg PO DAILY 11/03/20 [History Last Taken Unknown] pregabalin 50 mg PO TID #0 cap 11/07/20 [Rx Last Taken 08/04/19] ondansetron 4 mg PO TID PRN 3 Days #10 tab 12/02/20 [Rx Last Taken Unknown] docusate sodium [DOK] 100 mg PO DAILY 12/17/20 [History Last Taken Unknown] hydralazine 100 mg PO TID 12/17/20 [History Last Taken Unknown] acetaminophen [Tylenol] 650 mg PO Q4H PRN PRN #0 tab 01/21/21 [Rx Last Taken Unknown] guaifenesin 20 ml PO Q4H PRN PRN #0 ml 01/21/21 [Rx Last Taken Unknown] Eliquis 10 mg PO BID 01/29/21 [History Last Taken Unknown] Lantus Solostar U-100 Insulin 10 unit SUBCUT QPM 01/29/21 [History Last Taken Unknown] aspirin 81 mg PO DAILY 01/29/21 [History Last Taken Unknown] carvedilol 3.125 mg PO BID 01/29/21 [History Last Taken Unknown] insulin lispro [Humalog KwikPen Insulin] See Protocol SUBCUT ACHS 01/29/21 [History Last Taken Unknown] tamsulosin 0.4 mg PO DAILY@1730 01/29/21 [History Last Taken Unknown] dexamethasone [Decadron] 6 mg PO DAILY #0 tab 02/11/21 [Rx Last Taken Unknown] Allergy/AdvReac Type Severity Reaction Status Date / Time blue dye Allergy PASS OUT Verified 01/18/21 12:11 Family History Father Diabetes Mother Hypertension Surgical History H/O: hysterectomy History of cholecystectomy History of cystoscopy Social History household members: none Smoking Status: Former smoker alcohol intake: never substance use type: does not use ROS ROS Narrative Feeling cold. No nausea, vomiting. Wick catheter to suction currently. no complaints of back pain, abdominal pain, burning with urination. Physical Exam Const alert, oriented x3 and no apparent distress HEENT normocephalic and hearing grossly normal bilaterally Face and Sinus: normal facial exam Nose: external nose normal External Ear: external ears normal Mouth: lips normal Eyes General Eye: normal appearance of both eyes Neck supple Neck Narrative: nurse cleaning triple lumen in right neck General: trachea midline Chest Chest: symmetrical chest wall rise Resp normal respiratory effort Effort and Inspection: able to speak in complete sentences, symmetric chest movement and actively coughing Cardio regular rate and regular rhythm GI soft to palpation, non-tender and non-distended external exam normal Narrative: wick catheter removed. 18Fr [address] way odom inserted with cranberry urine out. no clots. culture sent. External Female Exam: normal appearance of the urethra Back/Spine no CVA tenderness Extremity normal to inspection Skin no rashes or lesions noted and no wounds Skin Narrative: pale Neuro oriented x3, CN's II-XII intact bilaterally and moves all extremities Psych mental status grossly normal, thought process normal and cooperative Lab / Micro Data Result Diagrams: 02/16/21 04:00 02/16/21 04:00 Labs: Laboratory Results - last 24 hr 02/16/21 04:00: Lactic Acid 1.3 02/16/21 04:00: WBC 15.7 H, RBC 1.84 L, Hgb 5.0 L*, Hct 16.9 L, MCV 91.8, MCH 27.2, MCHC 29.6 L, RDW Std Deviation 56.5 H, RDW Coeff of Wade 17.0 H, Plt Count 48 L*, MPV 12.3 H, Immature Gran % (Auto) 1.100 H, Neut % (Auto) 90.2 H, Lymph % (Auto) 5.6 L, Price % (Auto) 2.9, Eos % (Auto) 0.1, Baso % (Auto) 0.1, Absolute Neuts (auto) 14.1 H, Absolute Lymphs (auto) 0.87, Nucleated RBC % 0, Diff Path Review August, Anisocytosis 2+ 02/16/21 04:00: PT 25.0 H, INR 2.4 02/16/21 04:00: Sodium 149 H, Potassium 4.0, Chloride 123 H, Carbon Dioxide 17.0 L, Anion Gap 9, BUN 49 H, Creatinine 2.28 H, Estim Creat Clear Calc 16.58, Est GFR (MDRD) Af Amer 27 L, Est GFR (MDRD) Non-Af 22 L, BUN/Creatinine Ratio 21.5 H, Glucose 244 H, Calcium 7.1 L, Total Bilirubin 0.40, AST 27, ALT 26, Alkaline Phosphatase 78, Total Protein 5.6 L, Albumin 2.0 L, Globulin 3.6, Albumin/Globulin Ratio 0.6 L 02/16/21 04:00: Troponin I High Sens 82 H 02/16/21 04:00: D-Dimer Quant (PE/DVT) 4.29 H* 02/16/21 05:04: Blood Type A POSITIVE, Antibody Screen NEGATIVE, Crossmatch See Detail 02/16/21 05:04: Crossmatch See Detail 02/16/21 05:49: POC Glucose 274 H Radiology Impression Chest X-Ray 02/16/21 02:58 IMPRESSION: Persistent bilateral pulmonary airspace disease/infiltrate. at 0435 Reported and signed by: Shawn Krause MD Electronically Signed: Shawn Krause MD at 4:34 EST Tel , Service support , Brain CT 02/16/21 03:11 IMPRESSION: Chronic involutional and white matter changes. No evidence of acute intracranial process. Trace left mastoid effusion with minimal bilateral maxillary sinus disease. Individualized dose optimization techniques were used for this CT. at 0635 Reported and signed by: Shawn Krause MD Electronically Signed: Shawn Krause MD at 6:34 EST Tel , Service support , Abdomen/Pelvis CT 02/16/21 04:40 IMPRESSION: 1. Patchy bilateral pulmonary consolidation suggesting pneumonia. 2. Bilateral ureteral stents in place with mild residual right hydronephrosis. Nonobstructing 6 mm left renal stone. 3. Mild soft tissue swelling right groin secondary to recent central line removal and/or catheterization. 4. Other nonurgent findings within body of report. Individualized dose optimization techniques were used for this CT. at 0652 Reported and signed by: Shawn Krause MD Electronically Signed: Shawn Krause MD at 6:50 EST Tel , Service support ,
[2021-02-16] MEDS: Pantoprazole Sodium 40 MG Tablet PO (10:13)
[2021-02-16] MEDS: Carvedilol 3.125 MG TABLET PO ×2 (10:13→22:01)
[2021-02-16] MEDS: amLODIPine 10 MG Tablet PO (10:13)
[2021-02-16] MEDS: Docusate Sodium 100 MG Capsule PO (10:13)
[2021-02-16] MEDS: guaiFENesin 10 ML UDC (200MG/10ML) 20 ML PO ×2 (10:39→15:54)
[2021-02-16 11:40] LABS: Bedside Glucose 398 mg/dL (70-110)
--- NOTE | 2021-02-16 13:51 | CHAPLAIN ---
Type of Pastoral Visit _x__ Initial Visit ___ Follow-up Visit ___ On-call Visit ___ General Patient Visit ___ Spiritual Assessment ___ Family Conference ___ Bereavement ___ Rapid Response ___ Code Blue ___ Other (describe below) Pastoral Care Referral From _x__ Patient ___ Family ___ Nurse ___ Physician ___ Bufferer ___ Director Of Laboratory Operations ___ Other (describe below) Sacrament/Intervention ___ Active listening ___ Anointing ___ Buddhism ___ Bereavement ___ Communion ___ Capri exploration ___ ___ Life review _x__ Prayer ___ Reconciliation ___ Sacrament of Sick _x__ Supportive presence ___ Wedding ___ Other (describe below) Pastoral Comments patient breathing is labored although she is able to talk briefly; visit was kept short; pt welcomed presence and prayer
--- NOTE | 2021-02-16 15:13 | NURSING ---
This RN reviewed SN charting
--- NOTE | 2021-02-16 15:34 | CASEMGMT ---
Readmission chart review: See extensive RA note completed by this RN NOEMY on 01/30/21. Pt was discharged to [facility] on 02/12/21 and then was taken to [facility] ED then transferred to [facility] as direct admit for Symptomatic anemia w/ Hematuria. Pt's Hgb at [place] was 6.7 and then 5.0 this am. Pt's Hgb upon discharging on 02/12/[address] Kaminski on board for odom placement and hematuria. CM to follow for any further discharge planning/needs. Giovanni WHALEY CM
[2021-02-16] MEDS: Furosemide 40 MG/4 ML Vial IV (16:03)
[2021-02-16] MEDS: 0.9% Saline Lock 10 ML Syringe IV ×2 (16:03→22:02)
--- NOTE | 2021-02-16 16:07 | RAD_ITS ---
STUDY: X-RAY CHEST REASON FOR EXAM: Female, 75 years old. sob TECHNIQUE: Single AP portable view of the chest. COMPARISON: 02/16/2021 at 02 57 FINDINGS: Right internal jugular venous line which is unchanged. No change in alveolar opacities in both lungs consistent with bilateral pneumonia, pulmonary edema, or air DS. There is no demonstrated pleural abnormality. There is moderate cardiac enlargement. Normal mediastinum and roya. Normal visualized pulmonary arteries. Normal visualized aortic arch and descending thoracic aorta. Normal visualized thoracic spine. Normal visualized ribs, clavicles, and shoulders. There is no demonstrated abnormality of the visualized soft tissue structures of the upper abdomen. RAD/Chest 1 View (Portable) IMPRESSION: No change from earlier today. Electronically Signed: Reji Nowak MD at 16:27 EST Tel , Service support ,
[2021-02-16 16:10] LABS: Bedside Glucose 409 mg/dL (70-110)
[2021-02-16] MEDS: Ipratropium/Albuterol Sulfate 3 ML AMPUL.NEB INHALATION ×3 (16:45→23:38)
--- NOTE | 2021-02-16 17:21 | PN.HOSP_ITS ---
Hospitalist Note Patient was admitted early this morning with a hemoglobin of 5 and a platelet count of 48,000. She was recently discharged here after an extended stay for COVID-19 pneumonia and hypoxic respiratory failure. At that time she was discharged on 3 L nasal cannula. With her hemoglobin being low she was been transfused 3 units of blood today and became increasingly hypoxic between her second and third unit and she was therefore given 40 mg of IV Lasix x1 dose and aerosols were initiated, incentive spirometer and Pep therapy were initiated as the patient is not taking deep breaths and is not been all that compliant with coughing and deep breathing. Her repeat hemoglobin after transfusion is pending. She had been on Eliquis and I suspect her continued oozing along with her hematuria is related to her Eliquis. She had been continuing 10 mg twice daily for a below the knee DVT. At this time I think we should discontinue her Eliquis indefinitely and a repeat ultrasound of her leg is pending. If the DVT is stable and below the knee I would not pursue any treatment at this time, if it propagates I would recommend IVC filter placement during this hospitalization. Given her continued respiratory failure we will transfer to the ICU. She has chronic renal failure on top of all her other comorbidities which I anticipate are contributing to her respiratory distress. Her chest x- ray still appears with significant bilateral infiltrates related to her COVID-19 infection but she has completed treatment with Zosyn, linezolid, baricitinib, and Decadron as she also had superimposed bacterial pneumonia. She is on Vanco and Zosyn at this time and cultures are pending. She is extremely frail at baseline. We will utilize BiPAP at 10/5 to assist with respiratory status and decreased distress. Transfer to ICU pending
[2021-02-16] MEDS: Tamsulosin HCl 0.4 MG Capsule PO (17:28)
[2021-02-16 17:41] LABS: Hematocrit 39.9 % (37-47); Hemoglobin 12.9 g/dL (12.0-15.0); Mean Corp Hgb Conc 32.3 g/dL (32-36); Mean Corpuscular Hgb 29.3 pg (27.0-32.0); Mean Corpuscular Volume 90.7 fL (81-99); Mean Platelet Vol. 11.7 fl (6.2-12.0); POSITIVE COUNT YES; RBC Distribution Width CV 14.2 % (11.6-14.6); RBC Distribution Width SD 46.9 fl (35.1-43.9); White Blood Count 12.4 K/mm3 (4.4-11.0)
[2021-02-16 18:05] LABS: Platelet Count 28 K/mm3 (150-450)
[2021-02-16 18:06] LABS: Scan Indicated on CBC? Y/N YES- FLAGS NOTED
--- NOTE | 2021-02-16 18:10 | NURSING ---
report called to icu
--- NOTE | 2021-02-16 18:52 | NURSING ---
received from [facility] bi-pap applied 23/01 60%
--- NOTE | 2021-02-16 21:38 | NURSING ---
PANDEMIC DOCUMENTATION DATE: 02/16/21 TIME: 023
[2021-02-16] MEDS: Furosemide 100 MG/10 ML Vial 80 MG IV (21:59)
[2021-02-16] MEDS: guaiFENesin 1,200 MG Tablet 1200 MG PO (22:01)
[2021-02-16] MEDS: Atorvastatin Calcium 40 MG Tablet PO (22:01)
[2021-02-16] MEDS: CHLORHEXIDINE GLUC 2% CLOTH 1 EACH TOWELETTE TOPICAL (22:02)
[2021-02-16 22:16] LABS: Bedside Glucose 353 mg/dL (70-110)
[2021-02-17] VITALS (40 sets, daily range): BP systolic 90–158; BP diastolic 43–80; PULSE 76–101; RESP 12–36; TEMP 36.5–37.2; O2SAT 87–97
--- NOTE | 2021-02-17 01:50 | NURSING ---
Ordered platelets arrived via building maintenance supervisor from [employer] per collaborative teacher.
[2021-02-17] MEDS: 0.9% Saline Lock 10 ML Syringe IV ×2 (02:13→06:33)
[2021-02-17] MEDS: Ipratropium/Albuterol Sulfate 3 ML AMPUL.NEB INHALATION ×6 (02:44→23:10)
[2021-02-17 06:26] LABS: Absolute Lymphocyte Count 0.76 X10^3/uL (0.83-4.51); Absolute Neutrophil Count 7.5 X10^3/uL (2.0-7.7); Basophil# 0.01 X10^3/uL; Basophil% 0.1 % (0-1); Eosinophil# 0.02 X10^3/uL; Eosinophils% 0.2 % (0-5); Hematocrit 29.3 % (37-47); Hemoglobin 9.9 g/dL (12.0-15.0); Lymphocyte # 0.76 X10^3/ul (0.83-4.51); Lymphocyte % 8.5 % (19-41); Mean Corp Hgb Conc 33.8 g/dL (32-36); Mean Corpuscular Hgb 29.8 pg (27.0-32.0); Mean Corpuscular Volume 88.3 fL (81-99); Mean Platelet Vol. 9.3 fl (6.2-12.0); Monocyte# 0.52 X10^3/uL; Monocyte% 5.8 % (0-10); NRBC Flagged by Analyzer 0 % (0-5); Neutrophil # 7.52 X10^3/uL (2.7-7.7); Neutrophil % 83.6 % (47-70); Platelet Count 100 K/mm3 (150-450); RBC Distribution Width CV 14.5 % (11.6-14.6); RBC Distribution Width SD 46.2 fl (35.1-43.9); Red Blood Count 3.32 M/mm3 (4.2-5.4)
[2021-02-17 06:41] LABS: International Normalized Ratio 1.8; Prothrombin Time (Protime)PT. 20.2 SECONDS (11.7-14.9)
[2021-02-17 06:43] LABS: ALB/GLOB Ratio 0.5 RATIO (0.9-2.4); AST(SGOT) 21 U/L (15-37); Alanine Aminotransfer ALT/SGPT 25 U/L (13-56); Alkaline Phosphatase 92 U/L (45-117); Anion Gap 8 (5-15); BUN 42 mg/dL (7-18); BUN/Creat Ratio 17.3 RATIO (10-20); Calcium,Total 7.4 mg/dL (8.5-10.1); Chloride 119 mmol/L (98-107); Creatinine, Serum 2.43 mg/dL (0.55-1.02); EST Glomerular Filtration Rate 21 mL/min (>60); Est Glom Filt Rate - Afr Amer 25 mL/min (>60); Estimated Creatinine Clearance 15.56 ml/min; Globulin 3.9 g/dL (2.2-4.2); Glucose 314 mg/dL (74-106); Magnesium 1.5 mg/dL (1.6-2.6); Phosphorus 2.9 mg/dL (2.5-4.9); Potassium 3.1 mmol/L (3.5-5.1); Protein, Total 5.9 g/dL (6.4-8.2); Sodium Level 148 mmol/L (136-145)
[2021-02-17 06:44] LABS: Vancomycin, Random Level 13.9 ug/mL (0.0-15.0)
--- NOTE | 2021-02-17 07:14 | EX.PCM.CONCC ---
Assessment & Plan Assessment/Plan (1) Acute blood loss anemia: (2) Hematuria: (3) Acute respiratory failure with hypoxia: (4) Thrombocytopenia: (5) Hyperglycemia: PLAN: RECOMMENDATIONS: 1. Lasix as needed to help with euvolemia 2. Aggressive pulmonary toileting. Increase activity as tolerated 3. Await urology plan for hematuria 4. Continue empiric antibiotics pending culture results 5. Keep platelets above 50,000 while actively having hematuria 6. Increase Lantus given hyperglycemia IMPRESSIONS: 1. Acute on chronic hypoxic respiratory failure secondary to acute on chronic CHF Patient presented with thrombocytopenia and anemia, likely secondary to GI/ sources. Patient received significant volume related to blood products. Patient appeared to have responded to BiPAP until diuretics could take effect. Continue with aggressive pulmonary toileting. We will continue diuretics as necessary to help with respiratory status. This is complicated by a recent COVID-19 hospitalization. 2. Potential sepsis in the setting of acute blood loss anemia Patient significantly debilitated given recent protracted hospitalization. Patient does have ureteral stents with hematuria, so bacteremia is possible. Cultures have been sent. Continue with aggressive broad-spectrum antibiotics pending the results. Patient has remained hemodynamically stable, but hydralazine has been held. Okay to continue with Coreg for now. Acute blood loss anemia complicated by anticoagulation, but patient does have a recent diagnosis of DVT that is still present. Patient may require evaluation for an IVC filter. 3. Uncontrolled diabetes mellitus type 2 Unclear if patient has an increased endogenous steroid production leading to hyperglycemia. Patient is not on steroids at this time. Lantus will be increased. Continue with sliding scale. 4. Debilitated/advanced age/recent DVT/thrombocytopenia Complicates care, management, recovery and prognosis. May need evaluation for IVC filter HPI Consult Data Date of Consult: 02/17/21 HPI Narrative HPI Narrative: DOMINICK NEELY is a 75 F, with past medical history listed below and well-known to me from recent [facility], who presents to [facility] as a transfer from [facility] secondary to hematuria and heme positive stools without overt melena or hematochezia. Patient reportedly was noted to have a hemoglobin of 6.7. Patient was given Zosyn and vancomycin for concerns of sepsis. Patient was recently discharged from [facility] on February 11 after being here approximately a month secondary to COVID-19. Patient is on Eliquis at baseline secondary to a DVT during that hospitalization. There was reportedly an attempt at a right femoral central line that was unsuccessful. This resulted in a 4 x 7 cm hematoma. On arrival, patient was afebrile, but hypertensive at 164/53. Patient was noted to have hematuria and outside laboratory data showed a white blood cell count of 24, hemoglobin of 6.7 and platelets of 77. BNP was elevated at 3544 and troponin was 87.6. Patient was given 3 units of packed red blood cells and platelets. However, overnight patient started to develop worsening respiratory status. Patient ultimately had to be transferred to the intensive care unit and placed on BiPAP therapy. Patient was also given a total of 120 mg of Lasix with reasonable urine output. On my arrival this morning, patient was able to be weaned to 5 L nasal cannula. Patient with a wet cough, but little production. Patient was denying any abdominal pain. Patient was not reporting any significant pain at the central line site. Patient did have some conversational dyspnea. Patient was on supplemental oxygen at the alf, but is unclear of the levels. Patient has not followed up as an outpatient with pulmonary at this point. Review of systems otherwise negative from a constitutional, HEENT, respiratory, cardiovascular, GI, genitourinary, musculoskeletal, skin, neurologic, psychiatric and hematologic system unless stated above. [facility] Medical History (Updated 02/16/21 @ 10:[address] Ashlyn Kaminski MD) Anxiety Chronic kidney disease, stage 3b Cognitive decline COVID-19 Depression Diabetes Gastric reflux GERD (gastroesophageal reflux disease) Hematuria High cholesterol History of tobacco use HLD (hyperlipidemia) HTN (hypertension) Hydronephrosis Hydronephrosis Hypertension Injury of back Nephrolithiasis Non-smoker Pyelonephritis Shortness of breath on exertion Uncontrolled type 2 diabetes mellitus Uses wheelchair Home Medications amlodipine 10 mg PO DAILY 06/05/18 [History Last Taken 08/04/19] atorvastatin 40 mg PO QHS 06/05/18 [History Last Taken 08/04/19] lansoprazole 30 mg PO DAILY 11/03/20 [History Last Taken Unknown] pregabalin 50 mg PO TID #0 cap 11/07/20 [Rx Last Taken 08/04/19] ondansetron 4 mg PO TID PRN 3 Days #10 tab 12/02/20 [Rx Last Taken Unknown] docusate sodium [DOK] 100 mg PO DAILY 12/17/20 [History Last Taken Unknown] hydralazine 100 mg PO TID 12/17/20 [History Last Taken Unknown] acetaminophen [Tylenol] 650 mg PO Q4H PRN PRN #0 tab 01/21/21 [Rx Last Taken Unknown] guaifenesin 20 ml PO Q4H PRN PRN #0 ml 01/21/21 [Rx Last Taken Unknown] Eliquis 10 mg PO BID 01/29/21 [History Last Taken Unknown] Lantus Solostar U-100 Insulin 10 unit SUBCUT QPM 01/29/21 [History Last Taken Unknown] aspirin 81 mg PO DAILY 01/29/21 [History Last Taken Unknown] carvedilol 3.125 mg PO BID 01/29/21 [History Last Taken Unknown] insulin lispro [Humalog KwikPen Insulin] See Protocol SUBCUT ACHS 01/29/21 [History Last Taken Unknown] tamsulosin 0.4 mg PO DAILY@1730 01/29/21 [History Last Taken Unknown] dexamethasone [Decadron] 6 mg PO DAILY #0 tab 02/11/21 [Rx Last Taken Unknown] Allergy/AdvReac Type Severity Reaction Status Date / Time blue dye Allergy PASS OUT Verified 01/18/21 12:11 Family History Father Diabetes Mother Hypertension Surgical History H/O: hysterectomy History of cholecystectomy History of cystoscopy Social History household members: none Smoking Status: Former smoker alcohol intake: never substance use type: does not use ROS ROS Narrative See HPI Physical Exam Const alert and no apparent distress Constitutional Narrative: Conversational and interactive. General Appearance: cooperative and comfortable HEENT normocephalic Eyes EOMs intact bilaterally Eyes Narrative: No icterus Neck no lymphadenopathy Neck Narrative: Right IJ triple-lumen catheter. Appears to be some superficial bruising around the catheter site. Chest inspection of chest normal Chest: symmetrical chest wall rise; Negative for crepitus Resp normal respiratory effort Auscultation: rhonchi, wheezes and diminished lung sounds; Negative for rales Cardio regular rate, regular rhythm, S1 normal heart sound and S2 normal heart sound GI normal to inspection, nondistended, normoactive bowel sounds, soft to palpation, non-tender and non-distended Extremity Extremity Narrative: No edema. General Extremity: clubbing; Negative for cyanosis or edema Skin Skin Narrative: Bruising in her neck from triple-lumen catheter as well as in her groin Neuro Neuro Narrative: Moves all extremities spontaneously. Right facial droop noted Sensorium / Orientation: alert Medical Records Data Medical Nutrition Assessment Dietitian: Malnutrition Criteria Met Start: 02/16/21 15:42 Freq: Status: Active Protocol: Document 02/16/21 15:42 RMA (Rec: 02/16/21 15:42 RMA [id number]) Nutrition Malnutrition Evidence of Malnutrition Exists Yes Malnutrition (severe): Acute Illness/Injury Evidenced By Suboptimal Energy Intake ( Severe),Weight Loss (Severe) Clinical Problem Acute Disease or Injury Related Malnutrition Etiology Severe protein-calorie malnutrition in the context of acute illness related to inadequate oral intake/Covid Signs/Symptoms as evidenced by ~13% wt loss x 1 month and PO meeting less than 50% estimated nutrition needs 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 Dietitian Recommendations/Changes Will liberalize diet to Carbohydrate-Controlled (no caloric/cardiac diet restriction). Will offer 240ml glucerna shake w/ breakfast and ensure pudding BID with lunch/dinner. Adjust ONS to optimize intake and prevent further wt loss. Lab / Micro Data Result Diagrams: 02/17/21 06:15 02/17/21 06:15 Labs: Laboratory Results - last 24 hr 02/16/21 04:00: D-Dimer Quant (PE/DVT) 4.29 H* 02/16/21 05:04: Crossmatch See Detail 02/16/21 05:04: Crossmatch See Detail 02/16/21 11:26: POC Glucose 398 H 02/16/21 16:07: POC Glucose 409 H 02/16/21 17:00: WBC 12.4 H, RBC 4.40, Hgb 12.9, Hct 39.9, MCV 90.7, MCH 29.3, MCHC 32.3 D, RDW Std Deviation 46.9 H, RDW Coeff of Wade 14.2, Plt Count 28 L*, MPV 11.7 02/16/21 22:05: POC Glucose 353 H 02/17/21 06:15: Random Vancomycin 13.9 02/17/21 06:15: WBC 9.0, RBC 3.32 L, Hgb 9.9 L, Hct 29.3 L, MCV 88.3, MCH 29.8, MCHC 33.8, RDW Std Deviation 46.2 H, RDW Coeff of Wade 14.5, Plt Count 100 L, MPV 9.3, Immature Gran % (Auto) 1.800 H, Neut % (Auto) 83.6 H, Lymph % (Auto) 8.5 L, [place] % (Auto) 5.8, Eos % (Auto) 0.2, Baso % (Auto) 0.1, Absolute Neuts (auto) 7.5, Absolute Lymphs (auto) 0.76 L, Nucleated RBC % 0 02/17/21 06:15: PT 20.2 H, INR 1.8 02/17/21 06:15: Sodium 148 H, Potassium 3.1 L, Chloride 119 H, Carbon Dioxide 21.0, Anion Gap 8, BUN 42 H, Creatinine 2.43 H, Estim Creat Clear Calc 15.56, Est GFR (MDRD) Af Amer 25 L, Est GFR (MDRD) Non-Af 21 L, BUN/Creatinine Ratio 17.3, Glucose 314 H, Calcium 7.4 L, Phosphorus 2.9, Magnesium 1.5 L, Total Bilirubin 0.60, AST 21, ALT 25, Alkaline Phosphatase 92, Total Protein 5.9 L, Albumin 2.0 L, Globulin 3.9, Albumin/Globulin Ratio 0.5 L Micro: Microbiology 02/16/21 20:35 Stool Stool Occult Blood (TANIYA) - Final Occult Blood Positive 02/16/21 09:25 Urine, Clean Catch Legionella Antigen - Final 02/16/21 09:25 Urine, Clean Catch Streptococcus pneumoniae Antigen (M - Final Radiology Impression Venous Doppler Study 02/16/21 08:57 Interpretation Summary Deep venous thrombosis left soleus vein No additional evidence for proximal progression bilateral lower extremities deep venous system. Patent and compressible bilateral great saphenous veins Left soleus vein DVT first noted January 19, 2021 Ordering Physician: Shawnee Menon Referring Physician: Shawn Almeida Performed By: Neeta Toscano, SOFYA, RVT Chest X-Ray 02/16/21 16:07 IMPRESSION: No change from earlier today. Electronically Signed: Reji Nowak MD at 16:27 EST Tel , Service support , Charges/Coding Visit Charges Inpatient E&M: 19394 Init Hosp L3
--- NOTE | 2021-02-17 07:31 | EX.PCM.CON.G ---
HPI Consult Data Date of Consult: 02/17/21 HPI Narrative HPI Narrative: DOMINICK NEELY, is a 75 F who presents from the nurse at home with hematuria. She was recently discharged from [facility] with a diagnosis of an acute DVT (on Eliquis), CKD stage III, COVID-19 pneumonia. On evaluation she was discovered to have anemia bicytopenia. She also was reported to have some darkened stools. There were checked and they were occult positive. At this time patient has received 3 units of packed red blood cells and platelets. She appears to be relatively stable. She does not know if she is ever had a colonoscopy. She says she gets acute abdominal pain on occasion. She takes aspirin on a daily basis along with Eliquis and recently was given dexamethasone for her pneumonia. [facility] Medical History (Updated 02/16/21 @ 10:[address] Ashlyn Kaminski MD) Anxiety Chronic kidney disease, stage 3b Cognitive decline COVID-19 Depression Diabetes Gastric reflux GERD (gastroesophageal reflux disease) Hematuria High cholesterol History of tobacco use HLD (hyperlipidemia) HTN (hypertension) Hydronephrosis Hydronephrosis Hypertension Injury of back Nephrolithiasis Non-smoker Pyelonephritis Shortness of breath on exertion Uncontrolled type 2 diabetes mellitus Uses wheelchair Home Medications amlodipine 10 mg PO DAILY 06/05/18 [History Last Taken 08/04/19] atorvastatin 40 mg PO QHS 06/05/18 [History Last Taken 08/04/19] lansoprazole 30 mg PO DAILY 11/03/20 [History Last Taken Unknown] pregabalin 50 mg PO TID #0 cap 11/07/20 [Rx Last Taken 08/04/19] ondansetron 4 mg PO TID PRN 3 Days #10 tab 12/02/20 [Rx Last Taken Unknown] docusate sodium [DOK] 100 mg PO DAILY 12/17/20 [History Last Taken Unknown] hydralazine 100 mg PO TID 12/17/20 [History Last Taken Unknown] acetaminophen [Tylenol] 650 mg PO Q4H PRN PRN #0 tab 01/21/21 [Rx Last Taken Unknown] guaifenesin 20 ml PO Q4H PRN PRN #0 ml 01/21/21 [Rx Last Taken Unknown] Eliquis 10 mg PO BID 01/29/21 [History Last Taken Unknown] Lantus Solostar U-100 Insulin 10 unit SUBCUT QPM 01/29/21 [History Last Taken Unknown] aspirin 81 mg PO DAILY 01/29/21 [History Last Taken Unknown] carvedilol 3.125 mg PO BID 01/29/21 [History Last Taken Unknown] insulin lispro [Humalog KwikPen Insulin] See Protocol SUBCUT ACHS 01/29/21 [History Last Taken Unknown] tamsulosin 0.4 mg PO DAILY@1730 01/29/21 [History Last Taken Unknown] dexamethasone [Decadron] 6 mg PO DAILY #0 tab 02/11/21 [Rx Last Taken Unknown] Allergy/AdvReac Type Severity Reaction Status Date / Time blue dye Allergy PASS OUT Verified 01/18/21 12:11 Family History Father Diabetes Mother Hypertension Surgical History H/O: hysterectomy History of cholecystectomy History of cystoscopy Social History household members: none Smoking Status: Former smoker alcohol intake: never substance use type: does not use ROS Review of Systems ROS Unobtainable: other Constitutional Constitutional: Denies fatigue, fever(s), poor appetite, weight gain or weight loss ENT HEENT: Denies mouth lesions Cardiovascular Cardiovascular: Denies abdominal bloating, abdominal edema or abdominal pain Respiratory/Chest Respiratory/Chest: Denies change in mental status, change in phlegm color, chest congestion or chest tightness Gastrointestinal Gastrointestinal: Denies belching, bloating, change in bowel habits, change in stool character, chewing difficulty, coffee ground emesis, constipation, cramping, diarrhea, dyspepsia, dysphagia, early satiety, excessive flatus, fecal incontinence, heartburn, hematemesis, hematochezia, hemorrhoids, loose stools, melena, nausea, odynophagia, rectal bleeding, tenesmus, vomiting or weight changes Genitourinary Genitourinary: Denies abdominal discomfort, burning urination or itching Musculoskeletal Musculoskeletal: Reports as per HPI; Denies muscle weakness or myalgias Integumentary Integumentary: Denies jaundice Neurologic Neurologic: Denies lack of coordination or weakness Psychiatric Psychiatric: Denies confusion, depression, memory loss, mood swings, paranoia or suicidal ideation Endocrine Endocrinology: Denies systems reviewed and no addt'l complaints, except as documented Hematologic/Lymphatic Hematologic/Lymphatic: Denies anemia, easy bleeding, easy bruising or lymphadenopathy Allergic/Immunologic Allergic/Immunologic: Denies systems reviewed and no addt'l complaints, except as documented Physical Exam Const alert General Appearance: cooperative Orientation / Consciousness: oriented to person HEENT hearing grossly normal bilaterally Head and Scalp: normal to inspection Face and Sinus: face symmetric Nose: external nose normal Mouth: oral and palatal mucosa normal Eyes conjunctivae normal General Eye: normal appearance of both eyes Neck full ROM General: normal visual inspection Lymph Lymphatic: no lymphadenopathy noted Chest inspection of chest normal and palpation of chest normal Chest: symmetrical chest wall rise Resp normal respiratory effort Effort and Inspection: able to speak in complete sentences Cardio regular rate GI non-distended Percussion: normal to percussion Rectal Exam: deferred Neuro Speech: speech normal Gait (Neuro): normal gait Medical Records Data Medical Nutrition Assessment Dietitian: Malnutrition Criteria Met Start: 02/16/21 15:42 Freq: Status: Active Protocol: Document 02/16/21 15:42 RMA (Rec: 02/16/21 15:42 RMA [id number]) Nutrition Malnutrition Evidence of Malnutrition Exists Yes Malnutrition (severe): Acute Illness/Injury Evidenced By Suboptimal Energy Intake ( Severe),Weight Loss (Severe) Clinical Problem Acute Disease or Injury Related Malnutrition Etiology Severe protein-calorie malnutrition in the context of acute illness related to inadequate oral intake/Covid Signs/Symptoms as evidenced by ~13% wt loss x 1 month and PO meeting less than 50% estimated nutrition needs 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 Dietitian Recommendations/Changes Will liberalize diet to Carbohydrate-Controlled (no caloric/cardiac diet restriction). Will offer 240ml glucerna shake w/ breakfast and ensure pudding BID with lunch/dinner. Adjust ONS to optimize intake and prevent further wt loss. Lab / Micro Data Result Diagrams: 02/17/21 06:15 02/17/21 06:15 Labs: Laboratory Results - last 24 hr 02/16/21 04:00: D-Dimer Quant (PE/DVT) 4.29 H* 02/16/21 05:04: Crossmatch See Detail 02/16/21 05:04: Crossmatch See Detail 02/16/21 11:26: POC Glucose 398 H 02/16/21 16:07: POC Glucose 409 H 02/16/21 17:00: WBC 12.4 H, RBC 4.40, Hgb 12.9, Hct 39.9, MCV 90.7, MCH 29.3, MCHC 32.3 D, RDW Std Deviation 46.9 H, RDW Coeff of Wade 14.2, Plt Count 28 L*, MPV 11.7 02/16/21 22:05: POC Glucose 353 H 02/17/21 06:15: Random Vancomycin 13.9 02/17/21 06:15: WBC 9.0, RBC 3.32 L, Hgb 9.9 L, Hct 29.3 L, MCV 88.3, MCH 29.8, MCHC 33.8, RDW Std Deviation 46.2 H, RDW Coeff of Wade 14.5, Plt Count 100 L, MPV 9.3, Immature Gran % (Auto) 1.800 H, Neut % (Auto) 83.6 H, Lymph % (Auto) 8.5 L, [place] % (Auto) 5.8, Eos % (Auto) 0.2, Baso % (Auto) 0.1, Absolute Neuts (auto) 7.5, Absolute Lymphs (auto) 0.76 L, Nucleated RBC % 0 02/17/21 06:15: PT 20.2 H, INR 1.8 02/17/21 06:15: Sodium 148 H, Potassium 3.1 L, Chloride 119 H, Carbon Dioxide 21.0, Anion Gap 8, BUN 42 H, Creatinine 2.43 H, Estim Creat Clear Calc 15.56, Est GFR (MDRD) Af Amer 25 L, Est GFR (MDRD) Non-Af 21 L, BUN/Creatinine Ratio 17.3, Glucose 314 H, Calcium 7.4 L, Phosphorus 2.9, Magnesium 1.5 L, Total Bilirubin 0.60, AST 21, ALT 25, Alkaline Phosphatase 92, Total Protein 5.9 L, Albumin 2.0 L, Globulin 3.9, Albumin/Globulin Ratio 0.5 L Micro: Microbiology 02/16/21 20:35 Stool Stool Occult Blood (TANIYA) - Final Occult Blood Positive 02/16/21 09:25 Urine, Clean Catch Legionella Antigen - Final 02/16/21 09:25 Urine, Clean Catch Streptococcus pneumoniae Antigen (M - Final Radiology Impression Venous Doppler Study 02/16/21 08:57 Interpretation Summary Deep venous thrombosis left soleus vein No additional evidence for proximal progression bilateral lower extremities deep venous system. Patent and compressible bilateral great saphenous veins Left soleus vein DVT first noted January 19, 2021 Ordering Physician: Shawnee Menon Referring Physician: Shawn Almeida Performed By: Neeta Toscano, SOFYA, RVT Chest X-Ray 02/16/21 16:07 IMPRESSION: No change from earlier today. Electronically Signed: Reji Nowak MD at 16:27 EST Tel , Service support , Assessment & Plan Assessment/Plan (1) Acute blood loss anemia: PLAN: Acute blood loss anemia from multiple sources and determined to be Hemoccult positive. She has multiple risk factors for GI blood loss including aspirin, thrombocytopenia with high-dose anticoagulation. In a patient that had does not know if she is had a colonoscopy she should undergo colonoscopy in an upper endoscopy for evaluation of her upper GI tract before she goes back on anticoagulation or antiplatelet therapy in the setting of thrombocytopenia. I will continue to follow when patient is more medically stable we will pursue endoscopic evaluation. Charges/Coding Visit Charges Inpatient E&M: 55753 Init Hosp L2
[2021-02-17] MEDS: Insulin Lispro 100 UNIT/ML INSULN.PEN SC ×3 (07:54→16:39)
--- NOTE | 2021-02-17 07:57 | PN.URO_ITS ---
Subjective Subjective Alicia was transferred to the ICU yesterday secondary to respiratory concerns. She has no complaints this morning seems to be breathing a little bit better. No complaints of flank pain or abdominal pain. Objective Data Objective Data Vital Signs: Vital Signs Temp Pulse Resp BP Pulse Ox 98.9 F 79 25 H 158/65 H 90 02/17/21 05:15 02/17/21 07:38 02/17/21 07:00 02/17/21 07:00 02/17/21 07:00 Oxygen Flow Rate (L/min) 5 Oxygen Delivery Method Nasal Cannula Weight: 58.513 kg Body Mass Index (BMI) 23.1 Intake & Output: Intake and Output for Last 24 Hours 02/15/21 02/16/21 02/17/21 23:59 23:59 23:59 Intake Total 1655 / 1655 370 / 370 Output Total 975 / 975 800 / 800 Balance 680 / 680 -430 / -430 Medical Nutrition Assessment Dietitian: Malnutrition Criteria Met Start: 02/16/21 15:42 Freq: Status: Active Protocol: Document 02/16/21 15:42 RMA (Rec: 02/16/21 15:42 RMA [id number]) Nutrition Malnutrition Evidence of Malnutrition Exists Yes Malnutrition (severe): Acute Illness/Injury Evidenced By Suboptimal Energy Intake ( Severe),Weight Loss (Severe) Clinical Problem Acute Disease or Injury Related Malnutrition Etiology Severe protein-calorie malnutrition in the context of acute illness related to inadequate oral intake/Covid Signs/Symptoms as evidenced by ~13% wt loss x 1 month and PO meeting less than 50% estimated nutrition needs 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 Dietitian Recommendations/Changes Will liberalize diet to Carbohydrate-Controlled (no caloric/cardiac diet restriction). Will offer 240ml glucerna shake w/ breakfast and ensure pudding BID with lunch/dinner. Adjust ONS to optimize intake and prevent further wt loss. Lab / Micro Data Result Diagrams: 02/17/21 06:15 02/17/21 06:15 Labs: Laboratory Results - last 24 hr 02/16/21 04:00: D-Dimer Quant (PE/DVT) 4.29 H* 02/16/21 05:04: Crossmatch See Detail 02/16/21 05:04: Crossmatch See Detail 02/16/21 11:26: POC Glucose 398 H 02/16/21 16:07: POC Glucose 409 H 02/16/21 17:00: WBC 12.4 H, RBC 4.40, Hgb 12.9, Hct 39.9, MCV 90.7, MCH 29.3, MCHC 32.3 D, RDW Std Deviation 46.9 H, RDW Coeff of Wade 14.2, Plt Count 28 L*, MPV 11.7 02/16/21 22:05: POC Glucose 353 H 02/17/21 06:15: Random Vancomycin 13.9 02/17/21 06:15: WBC 9.0, RBC 3.32 L, Hgb 9.9 L, Hct 29.3 L, MCV 88.3, MCH 29.8, MCHC 33.8, RDW Std Deviation 46.2 H, RDW Coeff of Wade 14.5, Plt Count 100 L, MPV 9.3, Immature Gran % (Auto) 1.800 H, Neut % (Auto) 83.6 H, Lymph % (Auto) 8.5 L, [place] % (Auto) 5.8, Eos % (Auto) 0.2, Baso % (Auto) 0.1, Absolute Neuts (auto) 7.5, Absolute Lymphs (auto) 0.76 L, Nucleated RBC % 0 02/17/21 06:15: PT 20.2 H, INR 1.8 02/17/21 06:15: Sodium 148 H, Potassium 3.1 L, Chloride 119 H, Carbon Dioxide 21.0, Anion Gap 8, BUN 42 H, Creatinine 2.43 H, Estim Creat Clear Calc 15.56, Est GFR (MDRD) Af Amer 25 L, Est GFR (MDRD) Non-Af 21 L, BUN/Creatinine Ratio 17.3, Glucose 314 H, Calcium 7.4 L, Phosphorus 2.9, Magnesium 1.5 L, Total Bilirubin 0.60, AST 21, ALT 25, Alkaline Phosphatase 92, Total Protein 5.9 L, Albumin 2.0 L, Globulin 3.9, Albumin/Globulin Ratio 0.5 L Micro: Microbiology 02/16/21 20:35 Stool Stool Occult Blood (TANIYA) - Final Occult Blood Positive 02/16/21 09:25 Urine, Clean Catch Legionella Antigen - Final 02/16/21 09:25 Urine, Clean Catch Streptococcus pneumoniae Antigen (M - Final Radiography Diagnostic Testing: Radiology Impression Venous Doppler Study 02/16/21 08:57 Interpretation Summary Deep venous thrombosis left soleus vein No additional evidence for proximal progression bilateral lower extremities deep venous system. Patent and compressible bilateral great saphenous veins Left soleus vein DVT first noted January 19, 2021 Ordering Physician: Shawnee Menon Referring Physician: Shawn Almeida Performed By: Neeta Toscano, SIDCS, RVT Chest X-Ray 02/16/21 16:07 IMPRESSION: No change from earlier today. Electronically Signed: Reji Nowak MD at 16:27 EST Tel , Service support , Physical Exam Const alert, oriented x3 and no apparent distress HEENT normocephalic Narrative: Urine is now pink-tinged in color. Significantly improved from yesterday. Assessment & Plan Assessment/Plan (1) Hematuria: (2) Hydronephrosis: PLAN: Continue supportive care Continue Alexandre catheter, no need for continuous bladder irrigation at the present time Await results of urine culture
[2021-02-17] MEDS: Potassium Chloride Oral Tablet 20 MEQ PO (08:12)
[2021-02-17] MEDS: amLODIPine 10 MG Tablet PO (08:16)
[2021-02-17] MEDS: guaiFENesin 1,200 MG Tablet 1200 MG PO ×2 (08:17→22:01)
[2021-02-17] MEDS: Vancomycin IV 1,000 MG/200 ML BAG 200 MG IV (08:21)
[2021-02-17] MEDS: Carvedilol 3.125 MG TABLET PO ×2 (08:21→22:00)
[2021-02-17] MEDS: Docusate Sodium 100 MG Capsule PO (08:22)
[2021-02-17] MEDS: Potassium Chloride 20mEq/100mL 20 MEQ/100 ML IV.SOLN. 100 MEQ IV BOLUS ×2 (09:10→11:08)
--- NOTE | 2021-02-17 09:11 | CASEMGMT ---
SARAH called Isela Desai with [facility] and let her know patient came into the hospital. SARAH let her know SW will update her when patient is ready for discharge. Yaneli BANEGAS
[2021-02-17] MEDS: Ondansetron 4 MG/2 ML Vial IV ×2 (11:11→18:36)
[2021-02-17 11:21] LABS: Bedside Glucose 321 mg/dL (70-110)
--- NOTE | 2021-02-17 11:24 | CASEMGMT ---
SW participated in ICU rounds. Pt initially said she did not want to go to [facility], then said she didn't want to go to the [place] [facility]. SW called daughter, inquired if she is in agreement w/pt returning to [facility] when ready, she is. SW inquired about pt's resistance at times to going to a [place] [facility]. The issue is not with the particular [place] [facility], but rather pt would rather go home. At this time it is not realistic for pt to return home however. Pt has had some confusion while in the hospital, so SW will continue to communicate w/daughter in regard to discharge plans. TIMUR Alan
[2021-02-17 14:23] LABS: Pathologist Review Reviewed
--- NOTE | 2021-02-17 16:02 | PCM.PN.HOSP ---
Subjective Subjective Patient's hemoglobin has improved as well as her platelets with transfusion of both overnight. Her respiratory status is improved and she is now able to monitor maintain on 5 L nasal cannula. Upon my evaluation she complains because I muted the TV and she was not able to hear any longer and she was not very interested in discussing her care or how she was feeling today. Oozing at her central line has improved. Objective Data Objective Data Vital Signs: Vital Signs Temp Pulse Resp BP Pulse Ox 97.8 F 87 20 H 90/59 L 90 02/17/21 14:00 02/17/21 15:20 02/17/21 15:00 02/17/21 15:20 02/17/21 15:32 Oxygen Flow Rate (L/min) 5 Oxygen Delivery Method Nasal Cannula Weight: 58.513 kg Body Mass Index (BMI) 23.1 Intake & Output: Intake and Output for Last 24 Hours 02/15/21 02/16/21 02/17/21 23:59 23:59 23:59 Intake Total 1655 / 1655 830 / 830 Output Total 975 / 975 1500 / 1500 Balance 680 / 680 -670 / -670 Medical Nutrition Assessment Dietitian: Malnutrition Criteria Met Start: 02/16/21 15:42 Freq: Status: Active Protocol: Document 02/17/21 10:47 AG (Rec: 02/17/21 10:47 AG [id number]) Nutrition Malnutrition Evidence of Malnutrition Exists Yes Malnutrition (severe): Acute Illness/Injury Evidenced By Suboptimal Energy Intake ( Severe),Weight Loss (Severe) Clinical Problem Acute Disease or Injury Related Malnutrition Etiology Severe protein-calorie malnutrition in the context of acute illness related to inadequate oral intake d/t COVID Signs/Symptoms as evidenced by 11#/8% wt loss x 1 month and PO meeting less than 50% estimated nutrition needs x 1 month 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 Dietitian Recommendations/Changes Continue Carbohydrate- Controlled diet (no caloric/ cardiac diet restriction) d/t malnutrition; Will continue 240ml glucerna shake w/ breakfast and ensure pudding BID with lunch/dinner. Will adjust ONS to optimize intake and prevent further wt loss. Lab / Micro Data Result Diagrams: 02/17/21 06:15 02/17/21 06:15 Labs: Laboratory Results - last 24 hr 02/16/21 04:00: Diff Path Review Reviewed 02/16/21 05:04: Crossmatch See Detail 02/16/21 16:07: POC Glucose 409 H 02/16/21 17:00: WBC 12.4 H, RBC 4.40, Hgb 12.9, Hct 39.9, MCV 90.7, MCH 29.3, MCHC 32.3 D, RDW Std Deviation 46.9 H, RDW Coeff of Wade 14.2, Plt Count 28 L*, MPV 11.7 02/16/21 22:05: POC Glucose 353 H 02/17/21 06:15: Random Vancomycin 13.9 02/17/21 06:15: WBC 9.0, RBC 3.32 L, Hgb 9.9 L, Hct 29.3 L, MCV 88.3, MCH 29.8, MCHC 33.8, RDW Std Deviation 46.2 H, RDW Coeff of Wade 14.5, Plt Count 100 L, MPV 9.3, Immature Gran % (Auto) 1.800 H, Neut % (Auto) 83.6 H, Lymph % (Auto) 8.5 L, Harford % (Auto) 5.8, Eos % (Auto) 0.2, Baso % (Auto) 0.1, Absolute Neuts (auto) 7.5, Absolute Lymphs (auto) 0.76 L, Nucleated RBC % 0 02/17/21 06:15: PT 20.2 H, INR 1.8 02/17/21 06:15: Sodium 148 H, Potassium 3.1 L, Chloride 119 H, Carbon Dioxide 21.0, Anion Gap 8, BUN 42 H, Creatinine 2.43 H, Estim Creat Clear Calc 15.56, Est GFR (MDRD) Af Amer 25 L, Est GFR (MDRD) Non-Af 21 L, BUN/Creatinine Ratio 17.3, Glucose 314 H, Calcium 7.4 L, Phosphorus 2.9, Magnesium 1.5 L, Total Bilirubin 0.60, AST 21, ALT 25, Alkaline Phosphatase 92, Total Protein 5.9 L, Albumin 2.0 L, Globulin 3.9, Albumin/Globulin Ratio 0.5 L 02/17/21 11:06: POC Glucose 321 H Micro: Microbiology 02/16/21 09:25 Urine Catheter - Alexandre Urine Culture - Preliminary Culture exhibits no growth. 02/16/21 20:35 Stool Stool Occult Blood (TANIYA) - Final Occult Blood Positive 02/16/21 09:25 Urine, Clean Catch Legionella Antigen - Final 02/16/21 09:25 Urine, Clean Catch Streptococcus pneumoniae Antigen (M - Final Radiography Diagnostic Testing: Radiology Impression Chest X-Ray 02/16/21 16:07 IMPRESSION: No change from earlier today. Electronically Signed: Reji Nowak MD at 16:27 EST Tel , Service support , Physical Exam Const alert, no apparent distress and average body habitus Constitutional Narrative: Elderly white female sitting up in bed watching television, mild confusion although orientation is considerably difficult to ascertain as patient is disinterested in communicating with me and more interested in watching television, nursing is at the bedside, patient appears much older than stated age Exam Limitations: other limitations HEENT head/scalp atraumatic and moist oral mucous membranes HEENT Narrative: Edentulous, no thrush, Mallampati 2 Head and Scalp: normocephalic Neck Neck Narrative: Right IJ in place and oozing appears to stop, ecchymosis around insertion site Resp normal respiratory effort, no retractions and no use of accessory muscles Resp Narrative: Scattered rhonchi but predominantly appears to be upper airway, scattered wheezes and diffusely diminished Auscultation: rhonchi and wheezes; Negative for crackles or rales Cardio regular rate, regular rhythm, S1 normal heart sound, S2 normal heart sound, no murmurs, no rub, no gallops, no clicks and no JVD GI normal to inspection, nondistended, normoactive bowel sounds, soft to palpation, non-tender and non-distended Extremity Extremity Narrative: Right groin is soft no edema, no cyanosis, clubbing present Peripheral Pulses: Yes pulses 2+ throughout Neuro moves all extremities and no focal motor deficits Sensorium / Orientation: awake and alert Psych Psych Narrative: Patient appears disinterested in her care Assessment & Plan Assessment/Plan (1) Acute and chronic respiratory failure with hypoxia: (2) Hydronephrosis: (3) Hematuria: (4) Acute blood loss anemia: (5) Thrombocytopenia: (6) DVT (deep venous thrombosis): PLAN: Acute on chronic hypoxic respiratory failure secondary to recent COVID-19 infection -Patient without history of heart failure -Echo done recently on 01/21/2021 shows an EF of 60% and a normal LV without diastolic dysfunction -It is conceivable that the patient could have pulmonary hypertension secondary to her chronic lung issues with recent Covid infection and her respiratory issues with transfusion are related to this -She has been weaned to 5 L nasal cannula -She was given Lasix yesterday without any marked improvement -Continue aggressive pulmonary toilet, incentive spirometry, Pep -Pulmonary medicine is consulted appreciate input Acute blood loss anemia -Patient is having both hematuria and is guaiac positive -Urology is following for her hematuria--> Alexandre is in place and no need for continuous bladder irrigation -GI is following for her positive guaiac stool and is proposing EGD and colonoscopy when she is more medically stable in the future -Patient was transfused 3 units of packed red blood cells for hemoglobin of 5 on 02/16/2021 -Hemoglobin this a.m. has improved to 9.9 -Continue to monitor with CBC in a.m. -Likely multifactorial with thrombocytopenia which I suspect was related to consumption with bleeding as well as being on Eliquis 10 mg twice daily for an extended period of time in conjunction with EMANUEL -We will stop anticoagulation indefinitely Thrombocytopenia -Suspect consumption -With active bleeding patient was transfused 2 pack of platelets -Platelet level has improved 100,000 -CBC in a.m. -Monitor closely Hematuria/hydronephrosis -Urology is following -Appreciate input -Hematuria has improved -Patient has stent in place -Continue Flomax Guaiac positive stool -GI is following and plans for EGD and colonoscopy in the future once patient is more medically stable inpatient versus outpatient -We will continue twice daily Protonix at this time with plans to switch to daily if no bleeding at discharge Chronic left soleal DVT -First noted on ultrasound January 19, 2021 -Patient has had no propagation since that point time -Would recommend repeat ultrasound in 1 week and if no propagation likely okay to leave off anticoagulation and not proceed with IVC -If patient demonstrates propagation will need to consider IVC placement -Would not recommend reinitiation of anticoagulation with considerable bleeding at this time Hypokalemia -Potassium replaced -Repeat in a.m. -Repeat mag Hypomagnesemia -Mag bolus given -Repeat mag in a.m. Hypernatremia/hyperchloremia -Will initiate low-dose of D5W and monitor respiratory status closely -Once normalized discontinue IV fluids CKD stage IV -Baseline serum creatinine appears to be between 2.5 and 3 -Continue Alexandre at this time -Current needs for FINISHED [employer] -Follow-up with nephrology as an outpatient as long as patient remains stable Potential sepsis -With marked debilitation after recent extensive hospitalization related to Covid -Cultures are pending -Tinea broad-spectrum antibiotics at this time and if cultures are negative then will discontinue DM-2 uncontrolled -Increase Lantus to 16 units -Continue sliding scale -Monitor closely but proceed with caution given renal failure as patient will have delayed clearance of insulins -Accu-Cheks before meals and at bedtime -Carb controlled diet Hypertension/hyperlipidemia -Continue amlodipine, hydralazine and Coreg -Continue to monitor blood pressure -Continue statin GERD -Continue Protonix IV 40 mg twice daily DVT prophylaxis -Hold Eliquis given bleeding -SCD right lower extremity -Known clot in left lower extremity CODE STATUS -Full code Charges/Coding Visit Charges Inpatient E&M: 40331 Subs Hosp L2
[2021-02-17 16:20] LABS: Bedside Glucose 170 mg/dL (70-110)
[2021-02-17] MEDS: Tamsulosin HCl 0.4 MG Capsule PO (16:39)
--- NOTE | 2021-02-17 19:05 | CPS ---
pt states she is nausious and doesn't want to use the BIPAP
[2021-02-17] MEDS: hydrALAZINE 50 MG Tablet 100 MG PO (21:57)
[2021-02-17] MEDS: Atorvastatin Calcium 40 MG Tablet PO (22:00)
[2021-02-17 22:21] LABS: Bedside Glucose 289 mg/dL (70-110)
[2021-02-18] VITALS (39 sets, daily range): BP systolic 78–141; BP diastolic 47–94; PULSE 84–140; RESP 16–34; TEMP 35.6–36.6; O2SAT 90–99
[2021-02-18] MEDS: Ipratropium/Albuterol Sulfate 3 ML AMPUL.NEB INHALATION ×3 (03:25→10:50)
[2021-02-18 05:11] LABS: Absolute Neutrophil Count 6.3 X10^3/uL (2.0-7.7); Eosinophil# 0.29 X10^3/uL; Eosinophils% 3.6 % (0-5); Hematocrit 28.2 % (37-47); Hemoglobin 9.2 g/dL (12.0-15.0); Lymphocyte % 11.1 % (19-41); Mean Corp Hgb Conc 32.6 g/dL (32-36); Mean Corpuscular Hgb 29.5 pg (27.0-32.0); Mean Corpuscular Volume 90.4 fL (81-99); Mean Platelet Vol. 9.9 fl (6.2-12.0); Monocyte# 0.58 X10^3/uL; Monocyte% 7.2 % (0-10); NRBC Flagged by Analyzer 0 % (0-5); Neutrophil # 6.25 X10^3/uL (2.7-7.7); POSITIVE COUNT YES; Platelet Count 87 K/mm3 (150-450); RBC Distribution Width CV 14.6 % (11.6-14.6); RBC Distribution Width SD 48.4 fl (35.1-43.9); Red Blood Count 3.12 M/mm3 (4.2-5.4); White Blood Count 8.1 K/mm3 (4.4-11.0)
[2021-02-18 05:35] LABS: ALB/GLOB Ratio 0.5 RATIO (0.9-2.4); AST(SGOT) 18 U/L (15-37); Alanine Aminotransfer ALT/SGPT 22 U/L (13-56); Albumin, Serum 1.8 g/dL (3.2-5.0); Alkaline Phosphatase 98 U/L (45-117); Anion Gap 7 (5-15); BUN 34 mg/dL (7-18); BUN/Creat Ratio 16.3 RATIO (10-20); Chloride 116 mmol/L (98-107); Creatinine, Serum 2.09 mg/dL (0.55-1.02); EST Glomerular Filtration Rate 25 mL/min (>60); Est Glom Filt Rate - Afr Amer 30 mL/min (>60); Estimated Creatinine Clearance 18.09 ml/min; Globulin 3.9 g/dL (2.2-4.2); Glucose 148 mg/dL (74-106); Magnesium 1.8 mg/dL (1.6-2.6); Potassium 3.8 mmol/L (3.5-5.1); Protein, Total 5.7 g/dL (6.4-8.2); Sodium Level 145 mmol/L (136-145); Vancomycin, Random Level 22.3 ug/mL (0.0-15.0)
--- NOTE | 2021-02-18 07:09 | PCM.RX.CS ---
Consult Pharmacy has been consulted to manage selected antiobiotic: Vancomycin Type of Consult: Follow-up Prior Doses of Antibiotics Received/Current Regimen: received 1000mg IV x1 yesterday at 08:21 and had 1250mg in AM of 02/16 Labs: Sodium 145 mmol/L (136-145) 02/18/21 05:00 Potassium 3.8 mmol/L (3.5-5.1) 02/18/21 05:00 Chloride 116 mmol/L (98-107) H 02/18/21 05:00 Carbon Dioxide 22.0 mmol/L (21.0-32.0) 02/18/21 05:00 Anion Gap 7 (5-15) 02/18/21 05:00 BUN 34 mg/dL (7-18) H 02/18/21 05:00 Creatinine 2.09 mg/dL (0.55-1.02) H 02/18/21 05:00 Est GFR (MDRD) Af Amer 30 mL/min (>60) L 02/18/21 05:00 Est GFR (MDRD) Non-Af 25 mL/min (>60) L 02/18/21 05:00 BUN/Creatinine Ratio 16.3 RATIO (10-20) 02/18/21 05:00 Glucose 148 mg/dL (74-106) H 02/18/21 05:00 Random Vancomycin 22.3 ug/mL (0.0-15.0) H 02/18/21 05:00 Microbiology: Microbiology 02/16/21 09:25 Urine Catheter - Alexandre Urine Culture - Preliminary Culture exhibits no growth. 02/16/21 20:35 Stool Stool Occult Blood (TANIYA) - Final Occult Blood Positive 02/16/21 09:25 Urine, Clean Catch Legionella Antigen - Final 02/16/21 09:25 Urine, Clean Catch Streptococcus pneumoniae Antigen (M - Final Weight used for dosin.2 kg Estimated Creatinine Clearance: 18ml/min Goal Trough: 15-20 mcg/mL Pharmacy Plan for Drug Dosing: The vanc random level drawn today at 05:00 (21 hours after the dose yesterday) was 22.3. This is above 20 so will not re-dose today. Since CrCl <20, will continue to dose off random level results so will repeat vanc random level tomorrow morning. Pharmacy Service will continue to monitor and adjust dosing as required. Follow-Up Labs: Trough Vancomycin - random Labs to be done on [date and time ordered]: 02/19/21 0600
[2021-02-18] MEDS: hydrALAZINE 50 MG Tablet 100 MG PO (07:24)
--- NOTE | 2021-02-18 08:19 | PCM.PN.INT ---
Assessment & Plan Assessment/Plan (1) Acute blood loss anemia: (2) Hematuria: (3) Acute respiratory failure with hypoxia: (4) Thrombocytopenia: (5) Hyperglycemia: PLAN: RECOMMENDATIONS: 1. Lasix as needed to help with euvolemia 2. Aggressive pulmonary toileting. Increase activity as tolerated 3. Defer to GI and urology for blood loss 4. Possibly okay to discontinue empiric antibiotics given negative cultures 5. Keep platelets above 50,000 while actively having hematuria 6. Increase Lantus given hyperglycemia 7. Okay to leave the intensive care unit from my perspective IMPRESSIONS: 1. Acute on chronic hypoxic respiratory failure secondary to acute on chronic CHF Patient presented with thrombocytopenia and anemia, likely secondary to GI/ sources. Patient received significant volume related to blood products. Patient appeared to have responded to BiPAP until diuretics could take effect. Continue with aggressive pulmonary toileting. We will continue diuretics as necessary to help with respiratory status. This is complicated by a recent COVID-19 hospitalization. Patient appears to be to her baseline oxygenation status. Okay to leave the intensive care unit. 2. Potential sepsis in the setting of acute blood loss anemia Patient significantly debilitated given recent protracted hospitalization. Patient does have ureteral stents with hematuria, so bacteremia is possible. Cultures have been sent. Continue with aggressive broad-spectrum antibiotics pending the results. Patient has remained hemodynamically stable, but hydralazine has been held. Okay to continue with Coreg for now. Anticipate bleeding will improve as Eliquis is metabolized. 3. Uncontrolled diabetes mellitus type 2 Unclear if patient has an increased endogenous steroid production leading to hyperglycemia. Patient is not on steroids at this time. Lantus will be increased. Continue with sliding scale. 4. Debilitated/advanced age/recent DVT/thrombocytopenia Complicates care, management, recovery and prognosis. May need evaluation for IVC filter Subjective Subjective Patient did well overnight. Patient is reporting generalized body aches, especially back pain and stiffness. Patient has been maintaining on 5 L nasal cannula. Patient continues to have hematuria, but blood counts have been stable. Patient is not reporting any dyspnea Objective Data Objective Data Vital Signs: Vital Signs Temp Pulse Resp BP Pulse Ox 36.4 C L 84 28 H 105/68 90 02/18/21 00:00 02/18/21 07:24 02/18/21 07:00 02/18/21 07:24 02/18/21 07:00 Oxygen Flow Rate (L/min) 5 Oxygen Delivery Method Nasal Cannula Weight: 58.2 kg Body Mass Index (BMI) 23.1 Intake & Output: Intake and Output for Last 24 Hours 02/16/21 02/17/21 02/18/21 23:59 23:59 23:59 Intake Total 1655 / 1655 1340 / 1348 58 / 58 Output Total 975 / 975 1800 / 1850 50 / 50 Balance 680 / 680 -460 / -502 Medical Nutrition Assessment Dietitian: Malnutrition Criteria Met Start: 02/16/21 15:42 Freq: Status: Active Protocol: Document 02/17/21 10:47 AG (Rec: 02/17/21 10:47 AG [id number]) Nutrition Malnutrition Evidence of Malnutrition Exists Yes Malnutrition (severe): Acute Illness/Injury Evidenced By Suboptimal Energy Intake ( Severe),Weight Loss (Severe) Clinical Problem Acute Disease or Injury Related Malnutrition Etiology Severe protein-calorie malnutrition in the context of acute illness related to inadequate oral intake d/t COVID Signs/Symptoms as evidenced by 11#/8% wt loss x 1 month and PO meeting less than 50% estimated nutrition needs x 1 month 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 Dietitian Recommendations/Changes Continue Carbohydrate- Controlled diet (no caloric/ cardiac diet restriction) d/t malnutrition; Will continue 240ml glucerna shake w/ breakfast and ensure pudding BID with lunch/dinner. Will adjust ONS to optimize intake and prevent further wt loss. Lab / Micro Data Result Diagrams: 02/18/21 05:00 02/18/21 05:00 Labs: Laboratory Results - last 24 hr 02/16/21 04:00: Diff Path Review Reviewed 02/17/21 11:06: POC Glucose 321 H 02/17/21 16:16: POC Glucose 170 H 02/17/21 22:09: POC Glucose 289 H 02/18/21 05:00: Random Vancomycin 22.3 H 02/18/21 05:00: WBC 8.1, RBC 3.12 L, Hgb 9.2 L, Hct 28.2 L, MCV 90.4, MCH 29.5, MCHC 32.6, RDW Std Deviation 48.4 H, RDW Coeff of Wade 14.6, Plt Count 87 L, MPV 9.9, Immature Gran % (Auto) 1.100 H, Neut % (Auto) 77.0 H, Lymph % (Auto) 11.1 L, Sebastian % (Auto) 7.2, Eos % (Auto) 3.6, Baso % (Auto) 0.0, Absolute Neuts (auto) 6.3, Absolute Lymphs (auto) 0.90, Nucleated RBC % 0 02/18/21 05:00: Sodium 145, Potassium 3.8, Chloride 116 H, Carbon Dioxide 22.0, Anion Gap 7, BUN 34 H, Creatinine 2.09 H, Estim Creat Clear Calc 18.09, Est GFR (MDRD) Af Amer 30 L, Est GFR (MDRD) Non-Af 25 L, BUN/Creatinine Ratio 16.3, Glucose 148 H, Calcium 7.0 L, Magnesium 1.8, Total Bilirubin 0.40, AST 18, ALT 22, Alkaline Phosphatase 98, Total Protein 5.7 L, Albumin 1.8 L, Globulin 3.9, Albumin/Globulin Ratio 0.5 L Micro: Microbiology 02/16/21 09:25 Urine Catheter - Alexandre Urine Culture - Final Culture exhibits no growth. 02/16/21 04:00 Blood Culture (Wb) - Other Blood Culture - Preliminary No growth in 48 hours. 02/16/21 20:35 Stool Stool Occult Blood (TANIYA) - Final Occult Blood Positive 02/16/21 09:25 Urine, Clean Catch Legionella Antigen - Final 02/16/21 09:25 Urine, Clean Catch Streptococcus pneumoniae Antigen (M - Final Physical Exam Const alert and no apparent distress Constitutional Narrative: Conversational and interactive. General Appearance: cooperative and comfortable HEENT normocephalic Eyes EOMs intact bilaterally Eyes Narrative: No icterus Neck no lymphadenopathy Neck Narrative: Right IJ triple-lumen catheter. Appears to be some superficial bruising around the catheter site. Chest inspection of chest normal Chest: symmetrical chest wall rise; Negative for crepitus Resp normal respiratory effort Auscultation: rhonchi, wheezes and diminished lung sounds; Negative for rales Cardio regular rate, regular rhythm, S1 normal heart sound and S2 normal heart sound GI normal to inspection, nondistended, normoactive bowel sounds, soft to palpation, non-tender and non-distended Extremity Extremity Narrative: No edema. General Extremity: clubbing; Negative for cyanosis or edema Skin Skin Narrative: Bruising in her neck from triple-lumen catheter as well as in her groin. These do not appear to be expanding Neuro Neuro Narrative: Moves all extremities spontaneously. Right facial droop noted Sensorium / Orientation: alert Charges/Coding Visit Charges Inpatient E&M: 28532 Subs Hosp L3
[2021-02-18] MEDS: guaiFENesin 1,200 MG Tablet 1200 MG PO ×2 (08:47→21:27)
[2021-02-18] MEDS: amLODIPine 10 MG Tablet PO (08:49)
[2021-02-18] MEDS: Docusate Sodium 100 MG Capsule PO (08:49)
[2021-02-18] MEDS: Carvedilol 3.125 MG TABLET PO (08:50)
[2021-02-18] MEDS: CHLORHEXIDINE GLUC 2% CLOTH 1 EACH TOWELETTE TOPICAL (08:50)
[2021-02-18 11:31] LABS: Bedside Glucose 98 mg/dL (70-110)
--- NOTE | 2021-02-18 12:10 | EKG12_ITS ---
Test Reason : A-FIB Blood Pressure : / mmHG Vent. Rate : 114 BPM Atrial Rate : 115 BPM P-R Int : 000 ms QRS Dur : 126 ms QT Int : 314 ms P-R-T Axes : 000 000 103 degrees QTc Int : 432 ms Atrial fibrillation with rapid ventricular response with premature ventricular or aberrantly conducte d complexes Right bundle branch block T wave abnormality, consider lateral ischemia Abnormal ECG Confirmed by FLEX ROWELL, FREEMAN ([id number]), editor map GULSHAN TRAYLOR ([id number]) on 02/24/2021 11:16:35 AM Referred By: Trena CURIEL Confirmed By:FREEMAN MCCORD MD
--- NOTE | 2021-02-18 12:39 | NURSING ---
a-fib on monitor hr 120-[address] schaefer informed awaiting orders
[2021-02-18] MEDS: Acetaminophen 325 MG Tablet 650 MG PO (12:45)
[2021-02-18] MEDS: Metoprolol Tartrate 5 MG/5 ML Vial IV (12:49)
[2021-02-18 13:55] LABS: Troponin-I HS 416 pg/mL (3.0-54.0)
--- NOTE | 2021-02-18 14:27 | ECHOLC_ITS ---
Reason For Study: Afib, Aflutter Procedure This was a limited 2D transthoracic echocardiogram. The study was technically difficult. Contrast injection was performed. Exam performed portable in ICU/CCU. Left Ventricle Normal LV size. D shaped septum in systole and diastole. Moderate concentric left ventricular hypertrophy. Left ventricular systolic function is normal. The estimated ejection fraction is 60 %. No regional wall motion abnormalities noted. Right Ventricle Normal RV size. Normal systolic function. Atria Normal left atrium. Normal right atrium. No doppler evidence for ASD. Mitral Valve There is no mitral annular calcification. Normal mitral valve. Trivial mitral valve insufficiency. Tricuspid Valve Normal tricuspid valve. Mild tricuspid valve insufficiency. Right ventricular systolic pressure estimated to be 36 mmHg. Aortic Valve Trisinus/trileaflet aortic valve. Mild focal aortic valve thickening. Trivial aortic valve insufficiency. Pulmonic Valve The pulmonic valve is not well visualized. Great Vessels The aortic root is not well visualized. Pericardium/Pleural No pericardial effusion. Medication Diluted definity 2ml given slow IV push to enhance endocardial definition. MMode/2D Measurements & Calculations LVIDd: 3.2 cm IVSd: 1.4 cm LVIDs: 2.1 cm LVPWd: 1.3 cm LVAd ap4: 17.4 cm2 FS: 34.3 % LVLd ap4: 6.8 cm EDV(MOD-sp4): 39.1 ml EDV(sp4-el): 37.5 ml LVAs ap4: 8.8 cm2 LVLs ap4: 5.8 cm ESV(MOD-sp4): 12.1 ml ESV(sp4-el): 11.3 ml EF(MOD-sp4): 69.0 % EF(sp4-el): 69.9 % SV(MOD-sp4): 27.0 ml SV(sp4-el): 26.2 ml Doppler Measurements & Calculations TR max leonel: 263.3 cm/sec TR max P.7 mmHg ECHO/Echo Limited w/Contrast Interpretation Summary The study was technically difficult. Contrast injection was performed. Left ventricular systolic function is normal. The estimated ejection fraction is 60 %. D shaped septum in systole and diastole. Moderate concentric left ventricular hypertrophy. Trivial mitral valve insufficiency. Mild tricuspid valve insufficiency. Mild focal aortic valve thickening. Trivial aortic valve insufficiency. Right ventricular systolic pressure estimated to be 36 mmHg. Ordering Physician: Shawnee Menon Referring Physician: Shawn Almeida Performed By: Neeta Toscano, SOFYA, RVT
--- NOTE | 2021-02-18 14:28 | PCM.PN.HOSP ---
Subjective Subjective Patient very much disinterested in talking to me about her health care and more interested in talking to me about getting stuff for her lips and repositioned at this time. I did reposition her and then tried to have another discussion with regards to her wishes in her care. She indicated several times she would like to be full code with regards to a cardiac at rest but indicated that she did not want to be on mechanical ventilation. I tried to explain with her typically cardiac arrest and mechanical ventilation go [id number] and a CODE STATUS of DO NOT INTUBATE but okay for CPR does not really make sense clinically but she was unwilling to have any further discussion with me and was more focused on her lips needing Vaseline. Today she developed atrial fibrillation with RVR which is new for her. Heart rates were in the 120s to 140s. She denied any chest pain or worsening shortness of breath with this. Per discussion with nursing staff she has been very dismissive with their interaction with her as well and they state her only real interest is going home to be with her dog. Objective Data Objective Data Vital Signs: Vital Signs Temp Pulse Resp BP Pulse Ox 97.9 F 140 H 28 H 116/60 91 02/18/21 08:00 02/18/21 12:49 02/18/21 12:00 02/18/21 12:49 02/18/21 10:24 Oxygen Flow Rate (L/min) 6 Oxygen Delivery Method Nasal Cannula Weight: 58.2 kg Body Mass Index (BMI) 23.1 Intake & Output: Intake and Output for Last 24 Hours 02/16/21 02/17/21 02/18/21 23:59 23:59 23:59 Intake Total 1655 / 1655 1340 / 1348 368 / 368 Output Total 975 / 975 1800 / 1850 550 / 550 Balance 680 / 680 -460 / -502 -182 / -182 Medical Nutrition Assessment Dietitian: Malnutrition Criteria Met Start: 02/16/21 15:42 Freq: Status: Active Protocol: Document 02/17/21 10:47 AG (Rec: 02/17/21 10:47 [id number]) Nutrition Malnutrition Evidence of Malnutrition Exists Yes Malnutrition (severe): Acute Illness/Injury Evidenced By Suboptimal Energy Intake ( Severe),Weight Loss (Severe) Clinical Problem Acute Disease or Injury Related Malnutrition Etiology Severe protein-calorie malnutrition in the context of acute illness related to inadequate oral intake d/t COVID Signs/Symptoms as evidenced by 11#/8% wt loss x 1 month and PO meeting less than 50% estimated nutrition needs x 1 month 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 Dietitian Recommendations/Changes Continue Carbohydrate- Controlled diet (no caloric/ cardiac diet restriction) d/t malnutrition; Will continue 240ml glucerna shake w/ breakfast and ensure pudding BID with lunch/dinner. Will adjust ONS to optimize intake and prevent further wt loss. Lab / Micro Data Result Diagrams: 02/18/21 05:00 02/18/21 05:00 Labs: Laboratory Results - last 24 hr 02/17/21 16:16: POC Glucose 170 H 02/17/21 22:09: POC Glucose 289 H 02/18/21 05:00: Random Vancomycin 22.3 H 02/18/21 05:00: WBC 8.1, RBC 3.12 L, Hgb 9.2 L, Hct 28.2 L, MCV 90.4, MCH 29.5, MCHC 32.6, RDW Std Deviation 48.4 H, RDW Coeff of Wade 14.6, Plt Count 87 L, MPV 9.9, Immature Gran % (Auto) 1.100 H, Neut % (Auto) 77.0 H, Lymph % (Auto) 11.1 L, [place] % (Auto) 7.2, Eos % (Auto) 3.6, Baso % (Auto) 0.0, Absolute Neuts (auto) 6.3, Absolute Lymphs (auto) 0.90, Nucleated RBC % 0 02/18/21 05:00: Sodium 145, Potassium 3.8, Chloride 116 H, Carbon Dioxide 22.0, Anion Gap 7, BUN 34 H, Creatinine 2.09 H, Estim Creat Clear Calc 18.09, Est GFR (MDRD) Af Amer 30 L, Est GFR (MDRD) Non-Af 25 L, BUN/Creatinine Ratio 16.3, Glucose 148 H, Calcium 7.0 L, Magnesium 1.8, Total Bilirubin 0.40, AST 18, ALT 22, Alkaline Phosphatase 98, Total Protein 5.7 L, Albumin 1.8 L, Globulin 3.9, Albumin/Globulin Ratio 0.5 L 02/18/21 11:24: POC Glucose 98 02/18/21 13:00: Troponin I High Sens 416 H* Micro: Microbiology 02/16/21 09:25 Urine Catheter - Alexandre Urine Culture - Final Culture exhibits no growth. 02/16/21 04:00 Blood Culture (Wb) - Other Blood Culture - Preliminary No growth in 48 hours. 02/16/21 20:35 Stool Stool Occult Blood (TANIYA) - Final Occult Blood Positive 02/16/21 09:25 Urine, Clean Catch Legionella Antigen - Final 02/16/21 09:25 Urine, Clean Catch Streptococcus pneumoniae Antigen (M - Final Physical Exam Const alert, oriented x3, no apparent distress and average body habitus Constitutional Narrative: Elderly white female sitting up in bed watching television, patient is lying somewhat cockeyed in bed and would like straight up, appears comfortable and nontoxic at this time, does have a coarse nonproductive cough Orientation / Consciousness: confused Exam Limitations: other limitations HEENT normocephalic, head/scalp atraumatic and moist oral mucous membranes HEENT Narrative: Poor dentition, Mallampati 2, no thrush Head and Scalp: normocephalic Eyes PERRL and EOMs intact bilaterally Eyes Narrative: No icterus, conjunctival pallor bilaterally Neck no lymphadenopathy Neck Narrative: Right IJ in place with surrounding ecchymosis Resp normal respiratory effort, no retractions and no use of accessory muscles Resp Narrative: Scattered rhonchi and coarse cough, scattered wheezes and diffusely diminished Auscultation: rhonchi and wheezes; Negative for crackles or rales Cardio regular rate, regular rhythm, S1 normal heart sound, S2 normal heart sound, no murmurs, no rub, no gallops, no clicks and no JVD GI normal to inspection, nondistended, normoactive bowel sounds, soft to palpation, non-tender and non-distended Extremity Extremity Narrative: Right groin is soft no edema, no cyanosis, clubbing present Peripheral Pulses: Yes pulses 2+ throughout Skin no wounds, skin turgor normal, no jaundice, no petechiae and no mottling Skin Narrative: Bruising in her neck from triple-lumen catheter as well as in her groin from likely IV access attempt. Neuro oriented x3, CN's II-XII intact bilaterally, moves all extremities and no focal motor deficits Neuro Narrative: Marked generalized weakness but no focal deficits, speech is clear today and patient appears stronger Sensorium / Orientation: awake and alert Speech: speech normal Psych Psych Narrative: Patient remains disinterested in her care Assessment & Plan Assessment/Plan (1) Acute and chronic respiratory failure with hypoxia: (2) Hydronephrosis: (3) Hematuria: (4) Acute blood loss anemia: (5) Thrombocytopenia: (6) DVT (deep venous thrombosis): PLAN: Acute on chronic hypoxic respiratory failure secondary to recent COVID-19 infection -Patient without history of heart failure -Echo done recently on 01/21/2021 shows an EF of 60% and a normal LV without diastolic dysfunction -It is conceivable that the patient could have pulmonary hypertension secondary to her chronic lung issues with recent Covid infection and her respiratory issues with transfusion are related to this -She has been weaned to 5-6 L nasal cannula with an SPO2 in the low 90s -Continue aggressive pulmonary toilet, incentive spirometry, Pep -Pulmonary medicine is consulted appreciate input AVasquez patton with RVR -This is new for the patient -Troponins have been cycled and initial troponin is elevated -We will repeat echocardiogram given troponin elevation -Unable to place on full anticoagulation given severe anemia and thrombocytopenia with marked hematuria and guaiac positive stool -Carvedilol was changed to metoprolol 25 mg twice daily and patient was given 5 mg IV push with no change in her heart rate -Amiodarone bolus to be given -Consult cardiology NSTEMI -Suspect NSTEMI type II given tachycardia and anemia on presentation although patient has several risk factors that place her at increased risk for coronary disease and type I NSTEMI -Patient is chest pain-free and has had no chest pain during her admission despite her anemia but she is a diabetic -Had an echo in January that had a normal EF at 65% -Troponin elevation in A. fib will recheck an echo at this time -Usual cardiac enzyme was greater than 400--> continue to cycle -Unable to initiate antiplatelet therapy or anticoagulation so anticipate medical therapy will be pursued with further diagnostic work-up as an outpatient as able -EKG shows some ST-T wave depression but is mild in the lateral/inferior leads but no ST elevation -This may improve with improved heart rate as well -Unable to start aspirin secondary to bleeding as noted above -Continue beta-scar -No ANTHONY inhibitor or ARB given renal function -Cardiology consultation is pending but anticipate medical management at this point given other comorbidities and risks Acute blood loss anemia -Patient is having both hematuria and is guaiac positive--> hematuria has improved -Urology is following for her hematuria--> Alexandre is in place and no need for continuous bladder irrigation -GI is following for her positive guaiac stool and is proposing EGD and colonoscopy when she is more medically stable in the future -Patient was transfused 3 units of packed red blood cells for hemoglobin of 5 on 02/16/2021 -Hemoglobin this a.m. is stable at 9.2 from 9.9 yesterday -Continue to monitor with CBC in a.m. -Likely multifactorial with thrombocytopenia which I suspect was related to consumption with bleeding as well as being on Eliquis 10 mg twice daily for an extended period of time in conjunction with EMANUEL -We will stop anticoagulation indefinitely Thrombocytopenia -Suspect consumption -With active bleeding patient was transfused 2 pack of platelets on 10/16/2020 -Platelet count is relatively stable at 87,000 -CBC in a.m. -Monitor closely Hematuria/hydronephrosis -Urology is following -Hematuria has improved -Appreciate input -Patient has stent in place -Continue Flomax Guaiac positive stool -GI is following and plans for EGD and colonoscopy in the future once patient is more medically stable inpatient versus outpatient -We will continue twice daily Protonix at this time with plans to switch to daily if no bleeding at discharge Chronic left soleal DVT -First noted on ultrasound January 19, 2021 -Patient has had no propagation since that point time -Would recommend repeat ultrasound in 1 week and if no propagation likely okay to leave off anticoagulation and not proceed with IVC -If patient demonstrates propagation will need to consider IVC placement -Would not recommend reinitiation of anticoagulation with considerable bleeding at this time Hypokalemia -Resolved Hypomagnesemia -Resolved. Hypernatremia/hyperchloremia -Resolved -Discontinue IV fluids CKD stage IV -Baseline serum creatinine appears to be between 2.5 and 3 -Continue Alexandre at this time -Current needs for NEUROLOGY STROKE PHYSICIAN -Follow-up with nephrology as an outpatient as long as patient remains stable Potential sepsis -With marked debilitation after recent extensive hospitalization related to Covid -Cultures are pending -Tinea broad-spectrum antibiotics at this time and if cultures are negative then will discontinue DM-2 uncontrolled -Continue Lantus to 16 units--> fasting a.m. blood sugar was 148 -Continue sliding scale -Monitor closely but proceed with caution given renal failure as patient will have delayed clearance of insulins -Accu-Cheks before meals and at bedtime -Carb controlled diet Hypertension/hyperlipidemia -Continue amlodipine, hydralazine and switch Coreg to metoprolol for heart rate control -Continue to monitor blood pressure -Continue statin GERD -Continue Protonix IV 40 mg twice daily DVT prophylaxis -Hold Eliquis given bleeding -SCD right lower extremity -Known clot in left lower extremity CODE STATUS -Full code -Attempted to have a discussion with regards to CODE STATUS today with the patient she is completely disinterested in having this conversation at this time. Her family is also disinterested in her care which complicates matters. I will consult palliative care given her overall prognosis is extremely poor. She has had multiple hospitalizations this year and has deteriorated significantly with diagnoses of Covid, COPD, CKD, and now atrial fibrillation with what appears to be an NSTEMI type I versus type II Charges/Coding Visit Charges Inpatient E&M: 47238 [facility] Hosp L3
--- NOTE | 2021-02-18 15:34 | CASEMGMT ---
Social Work Per physician order, referral made to Palliative medicine at [facility]. Phone call to Brandi at [facility] and updated and clinical information faxed. JAY Bernardo
--- NOTE | 2021-02-18 16:03 | PN_ITS ---
Subjective Subjective No complaints at present time. Does report that she is feeling a little cold and I brought her warm blanket. Objective Data Objective Data Vital Signs: Vital Signs Temp Pulse Resp BP Pulse Ox 96.1 F L 114 H 22 H 94/47 L 96 02/18/21 14:54 02/18/21 14:54 02/18/21 14:54 02/18/21 14:54 02/18/21 14:54 Oxygen Flow Rate (L/min) 6 Oxygen Delivery Method Nasal Cannula Weight: 58.2 kg Body Mass Index (BMI) 23.1 Intake & Output: Intake and Output for Last 24 Hours 02/16/21 02/17/21 02/18/21 23:59 23:59 23:59 Intake Total 1655 / 1655 1340 / 1348 471 / 471 Output Total 975 / 975 1800 / 1850 550 / 550 Balance 680 / 680 -460 / -502 -79 / -79 Medical Nutrition Assessment Dietitian: Malnutrition Criteria Met Start: 02/16/21 15:42 Freq: Status: Active Protocol: Document 02/17/21 10:47 AG (Rec: 02/17/21 10:47 [id number]) Nutrition Malnutrition Evidence of Malnutrition Exists Yes Malnutrition (severe): Acute Illness/Injury Evidenced By Suboptimal Energy Intake ( Severe),Weight Loss (Severe) Clinical Problem Acute Disease or Injury Related Malnutrition Etiology Severe protein-calorie malnutrition in the context of acute illness related to inadequate oral intake d/t COVID Signs/Symptoms as evidenced by 11#/8% wt loss x 1 month and PO meeting less than 50% estimated nutrition needs x 1 month 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 Dietitian Recommendations/Changes Continue Carbohydrate- Controlled diet (no caloric/ cardiac diet restriction) d/t malnutrition; Will continue 240ml glucerna shake w/ breakfast and ensure pudding BID with lunch/dinner. Will adjust ONS to optimize intake and prevent further wt loss. Lab / Micro Data Result Diagrams: 02/18/21 05:00 02/18/21 05:00 Labs: Laboratory Results - last 24 hr 02/17/21 16:16: POC Glucose 170 H 02/17/21 22:09: POC Glucose 289 H 02/18/21 05:00: Random Vancomycin 22.3 H 02/18/21 05:00: WBC 8.1, RBC 3.12 L, Hgb 9.2 L, Hct 28.2 L, MCV 90.4, MCH 29.5, MCHC 32.6, RDW Std Deviation 48.4 H, RDW Coeff of Wade 14.6, Plt Count 87 L, MPV 9.9, Immature Gran % (Auto) 1.100 H, Neut % (Auto) 77.0 H, Lymph % (Auto) 11.1 L , [place] % (Auto) 7.2, Eos % (Auto) 3.6, Baso % (Auto) 0.0, Absolute Neuts (auto) 6.3, Absolute Lymphs (auto) 0.90, Nucleated RBC % 0 02/18/21 05:00: Sodium 145, Potassium 3.8, Chloride 116 H, Carbon Dioxide 22.0, Anion Gap 7, BUN 34 H, Creatinine 2.09 H, Estim Creat Clear Calc 18.09, Est GFR (MDRD) Af Amer 30 L, Est GFR (MDRD) Non-Af 25 L, BUN/Creatinine Ratio 16.3, Glucose 148 H, Calcium 7.0 L, Magnesium 1.8, Total Bilirubin 0.40, AST 18, ALT 22, Alkaline Phosphatase 98, Total Protein 5.7 L, Albumin 1.8 L, Globulin 3.9, Albumin/Globulin Ratio 0.5 L 02/18/21 11:24: POC Glucose 98 02/18/21 13:00: Troponin I High Sens 416 H* Micro: Microbiology 02/16/21 09:25 Urine Catheter - Alexandre Urine Culture - Final Culture exhibits no growth. 02/16/21 04:00 Blood Culture (Wb) - Other Blood Culture - Preliminary No growth in 48 hours. 02/16/21 20:35 Stool Stool Occult Blood (TANIYA) - Final Occult Blood Positive 02/16/21 09:25 Urine, Clean Catch Legionella Antigen - Final 02/16/21 09:25 Urine, Clean Catch Streptococcus pneumoniae Antigen (M - Final Physical Exam Narrative Resting comfortably in bed. Abdomen soft. Urine is clear yellow in Alexandre tubing. Assessment & Plan Assessment/Plan (1) Hematuria: (2) Hydronephrosis: PLAN: Continue supportive care No intervention for hematuria as urine is clear and hematuria will be intermittent as long as the stents are in place Please call with questions, I do not plan to change her ureteral stents until she is more stable medically
[2021-02-18 16:43] LABS: Troponin-I HS 1179 pg/mL (3.0-54.0)
[2021-02-18] MEDS: Tamsulosin HCl 0.4 MG Capsule PO (17:15)
[2021-02-18 17:21] LABS: Bedside Glucose 65 mg/dL (70-110)
--- NOTE | 2021-02-18 17:58 | EKG12_ITS ---
Test Reason : A-FIB Blood Pressure : / mmHG Vent. Rate : 116 BPM Atrial Rate : 068 BPM P-R Int : 000 ms QRS Dur : 124 ms QT Int : 364 ms P-R-T Axes : 000 -09 035 degrees QTc Int : 505 ms Atrial fibrillation with rapid ventricular response Right bundle branch block Abnormal ECG When compared with ECG of 18-FEB-2021 12:10, MANUAL COMPARISON REQUIRED, DATA IS UNCONFIRMED Confirmed by FLEX ROWELL, FREEMAN ([id number]), book editor GULSHAN TRAYLOR ([id number]) on 02/24/2021 11:09:15 AM Referred By: Trena CURIEL Confirmed By:FREEMAN MCCORD MD
[2021-02-18 18:37] LABS: Troponin-I HS 2713 pg/mL (3.0-54.0)
--- NOTE | 2021-02-18 19:30 | CON.PCM.CA_ITS ---
Assessment & Plan Assessment/Plan (1) Abnormal cardiac enzyme level: PLAN: The patient does have abnormal troponin I levels. It appears she has had abnormal troponin I levels in the past. At the present time her troponin I levels raise concern as to whether or not she truly has a type I non-STEMI versus a type II non-STEMI secondary to supply demand mismatch being brought out by her multiple noncardiovascular issues such as her underlying pulmonary disease issues and infectious disease related issues superimposed upon the additional finding of atrial fibrillation. At the moment she does not complain of classic symptoms of an acute coronary syndrome event. Her ECG does not demonstrate any acute changes other than her atrial fibrillation. Her echocardiogram is as noted. At the moment her cardiac enzymes and her cardiac rhythm can be followed. She can be treated for the possibility of underlying cardiovascular disease with respect to CAD. Ideally this would include agents such as aspirin, antiplatel ets, and anticoagulants, however, she is not a candidate for these at this time secondary to concerns of her ongoing acute blood loss related issues requiring PRBC transfusions. She can also be treated with medicine such as nitrates as needed, beta-blockers (if her blood pressure tolerates), afterload reducing agents (if her blood pressure tolerates), and lipid-lowering agents. She does not appear to be an ideal candidate for additional noninvasive or invasive cardiovascular studies at this time secondary to her multiple noncardiac comorbidities and issues. (2) Atrial fibrillation: PLAN: She remains in atrial fibrillation. This may be brought out by her various noncardiac comorbidities. At the present time she can continue rate control as tolerated. She did receive 1 dose of IV amiodarone. It may not be unreasonable to place her on an IV amiodarone infusion and attempt to help slow her heart rate and potentially regain sinus rhythm. Again she is not an ideal candidate for anticoagulant therapy at this time secondary to her underlying hematologic issues. (3) Acute blood loss anemia: PLAN: She has been evaluated. She has received PRBCs. To be reasonable to try and keep her hemoglobin elevated to maximize her oxygen carrying capacity. (4) Thrombocytopenia: PLAN: Her thrombocytopenia also presents issues with respect to antiplatelet and anticoagulant therapy. (5) DVT (deep venous thrombosis): PLAN: Again she is not an ideal candidate for long-term oral anticoagulant therapy at this time. He is being followed by internal medicine for this issue. (6) Acute and chronic respiratory failure with hypoxia: PLAN: She does have what appears to be acute on chronic respiratory related issues thought secondary to her history of COVID-19 pneumonia. She continues to be followed by internal medicine and pulmonology/critical care medicine. (7) Sepsis: QUALIFIERS: Sepsis type: sepsis due to unspecified organism Sepsis acute organ dysfunction status: with acute organ dysfunction Severe sepsis acute organ dysfunction type: encephalopathy Severe sepsis shock status: without septic shock Qualified Code(s): A41.9 - Sepsis, unspecified organism; R65.20 - Severe sepsis without septic shock; G93.40 - Encephalopathy, unspecified PLAN: There is concern of underlying sepsis which could trigger her abnormal cardiac enzymes and her atrial dysrhythmia. She is continuing medical therapy for such. (8) Pneumonia: QUALIFIERS: Pneumonia type: due to unspecified organism Laterality: unspecified laterality Lung location: unspecified part of lung Qualified Code(s): J18.9 - Pneumonia, unspecified organism PLAN: Again she is being evaluated by internal medicine and pulmonology and critical care medicine for concerns of her underlying recent COVID-19 pneumonia and other infectious disease related issues requiring medical management. Again her pneumonia may be a triggering event for her atrial dysrhythmia. (9) HLD (hyperlipidemia): PLAN: She can continue lipid-lowering therapy as deemed appropriate. (10) Benign essential HTN: PLAN: Her blood pressure can be followed and taken into consideration with her medications. Addt'l Comments Overall, the present time, she is remaining in the ICU. She will continue to be monitored. She will continue cardiovascular medical management as best as possible taking into consideration her multiple noncardiac comorbidities and issues. This note was generated using a voice recognition system and there may be incorrect words, spelling or punctuation that were not noted when reviewing the office note prior to saving. HPI Consult Data Date of Consult: 02/18/21 HPI Narrative HPI Narrative: DOMINICK NEELY, is a 75 year old white female who presents for cardiovascular consultation based upon concerns of abnormal cardiac enzymes and atrial fibrillation. The patient denies any previously diagnosed cardiovascular history and she denies undergoing any previous cardiovascular testing. She is currently in the ICU for a variety of multiple medical issues including concerns of her underlying anemia related concerns of hematuria and guaiac positive stools as well as concerns of findings compatible with thrombocytopenia, chronic left lower extremity DVT, hyperlipidemia, hypertension, diabetes mellitus, chronic renal insufficiency, recent COVID-19, acute on chronic respiratory related thought secondary to her recent COVID-19, and possible sepsis who has now been noted to have findings of abnormal troponin I levels and atrial fibrillation. At the present time she denies any ongoing chest discomfort. She does not complain of any acute on chronic respiratory related issues. She continues with a cough. She states she has sensed her heartbeat up and down at times. There has been no report of near syncope or syncope. She did have cardiac enzymes performed. It is noted in January she had mildly elevated high-sensitivity troponin I levels. During this admission she came in with a mildly elevated high-sensitivity troponin I level which was subsequently increased. She was noted initially to have sinus rhythm. She subsequently developed atrial fibrillation with rapid ventricular response. Her ECG demonstrated atrial fibr illation with a right bundle branch block pattern. Her chest x-ray is demonstrated bilateral airspace disease/infiltrates (please see official report). She did undergo a transthoracic echocardiogram today with the results as noted below. During her hospitalization she has required PRBC transfusions as well. [facility] Medical History (Updated 02/18/21 @ 19:[address] Chuckie Mcclelland MD) Abnormal cardiac enzyme level Anxiety Atrial fibrillation Benign essential HTN Chronic kidney disease, stage 3b Cognitive decline COVID-19 Depression Diabetes Gastric reflux GERD (gastroesophageal reflux disease) Hematuria High cholesterol History of tobacco use HLD (hyperlipidemia) HLD (hyperlipidemia) HTN (hypertension) Hydronephrosis Hydronephrosis Hypertension Injury of back Nephrolithiasis Non-smoker Pyelonephritis Shortness of breath on exertion Uncontrolled type 2 diabetes mellitus Uses wheelchair Home Medications amlodipine 10 mg PO DAILY 06/05/18 [History Last Taken 08/04/19] atorvastatin 40 mg PO QHS 06/05/18 [History Last Taken 08/04/19] lansoprazole 30 mg PO DAILY 11/03/20 [History Last Taken Unknown] pregabalin 50 mg PO TID #0 cap 11/07/20 [Rx Last Taken 08/04/19] ondansetron 4 mg PO TID PRN 3 Days #10 tab 12/02/20 [Rx Last Taken Unknown] docusate sodium [DOK] 100 mg PO DAILY 12/17/20 [History Last Taken Unknown] hydralazine 100 mg PO TID 12/17/20 [History Last Taken Unknown] acetaminophen [Tylenol] 650 mg PO Q4H PRN PRN #0 tab 01/21/21 [Rx Last Taken Unknown] guaifenesin 20 ml PO Q4H PRN PRN #0 ml 01/21/21 [Rx Last Taken Unknown] Eliquis 10 mg PO BID 01/29/21 [History Last Taken Unknown] Lantus Solostar U-100 Insulin 10 unit SUBCUT QPM 01/29/21 [History Last Taken Unknown] aspirin 81 mg PO DAILY 01/29/21 [History Last Taken Unknown] carvedilol 3.125 mg PO BID 01/29/21 [History Last Taken Unknown] insulin lispro [Humalog KwikPen Insulin] See Protocol SUBCUT ACHS 01/29/21 [History Last Taken Unknown] tamsulosin 0.4 mg PO DAILY@1730 01/29/21 [History Last Taken Unknown] dexamethasone [Decadron] 6 mg PO DAILY #0 tab 02/11/21 [Rx Last Taken Unknown] Allergy/AdvReac Type Severity Reaction Status Date / Time blue dye Allergy PASS OUT Verified 01/18/21 12:11 Family History Father Diabetes Mother Hypertension Surgical History H/O: hysterectomy History of cholecystectomy History of cystoscopy Social History household members: none Smoking Status: Former smoker alcohol intake: never substance use type: does not use ROS Constitutional Constitutional: Reports weakness Eyes Eyes: Reports as per HPI ENT HEENT: Reports as per HPI Cardiovascular Cardiovascular: Reports dyspnea and palpitations Respiratory/Chest Respiratory/Chest: Reports cough and dyspnea Gastrointestinal Gastrointestinal: Reports as per HPI Genitourinary Genitourinary: Reports as per HPI Musculoskeletal Musculoskeletal: Reports as per HPI Integumentary Integumentary: Reports as per HPI Neurologic Neurologic: Reports as per HPI Physical Exam Narrative This is a pale appearing older than stated age appearing 75-year-old white female. Const alert and oriented x3 Orientation / Consciousness: awake HEENT normocephalic, head/scalp atraumatic and hearing grossly normal bilaterally Eyes PERRL, EOMs intact bilaterally and conjunctivae normal Neck full ROM, supple and no JVD Resp Auscultation: rhonchi Cardio Rhythm: abnormal rhythm irregularly irregular Heart Sounds: S1 normal and S2 normal GI normal to inspection, nondistended, normoactive bowel sounds Extremity no pedal edema Skin no rashes or lesions noted Neuro oriented x3, moves all extremities, no focal motor deficits and no sensory deficits noted Psych cooperative Risk Stratification Risk Stratification Applicable: Yes Age >/= 65: Yes >/= 3 CAD Risk Factors (HTN, HLD, DM, family hx of CAD, or current smoker): Yes Aspirin Use in the Past 7 Days: Yes Severe Angina (>/= episodes in 24 hours): No EKG ST Changes >/= 0.5mm: No Positive Cardiac Marker: Yes JACKIE Risk Stratification Score: 4 JACKIE % Risk: 20% Risk Objective Data Vital Signs: Vital Signs Temp Pulse Resp BP Pulse Ox 96.1 F L 98 18 105/67 92 02/18/21 14:54 02/18/21 18:00 02/18/21 18:00 02/18/21 18:00 02/18/21 18:00 Oxygen Flow Rate (L/min) 6 Oxygen Delivery Method Nasal Cannula Weight: 128 lb 4.944 oz Body Mass Index (BMI) 23.1 Intake & Output: Intake and Output for Last 24 Hours 02/16/21 02/17/21 02/18/21 23:59 23:59 23:59 Intake Total 1655 / 1655 1340 / 1348 2175 / 2175 Output Total 975 / 975 1800 / 1850 800 / 800 Balance 680 / 680 -460 / -502 1375 / 1375 Lab / Micro Data Result Diagrams: 02/18/21 05:00 02/18/21 05:00 Labs: Laboratory Results - last 24 hr 02/17/21 22:09: POC Glucose 289 H 02/18/21 05:00: Random Vancomycin 22.3 H 02/18/21 05:00: WBC 8.1, RBC 3.12 L, Hgb 9.2 L, Hct 28.2 L, MCV 90.4, MCH 29.5, MCHC 32.6, RDW Std Deviation 48.4 H, RDW Coeff of Wade 14.6, Plt Count 87 L, MPV 9.9, Immature Gran % (Auto) 1.100 H, Neut % (Auto) 77.0 H, Lymph % (Auto) 11.1 L , [place] % (Auto) 7.2, Eos % (Auto) 3.6, Baso % (Auto) 0.0, Absolute Neuts (auto) 6.3, Absolute Lymphs (auto) 0.90, Nucleated RBC % 0 02/18/21 05:00: Sodium 145, Potassium 3.8, Chloride 116 H, Carbon Dioxide 22.0, Anion Gap 7, BUN 34 H, Creatinine 2.09 H, Estim Creat Clear Calc 18.09, Est GFR (MDRD) Af Amer 30 L, Est GFR (MDRD) Non-Af 25 L, BUN/Creatinine Ratio 16.3, Glucose 148 H, Calcium 7.0 L, Magnesium 1.8, Total Bilirubin 0.40, AST 18, ALT 22, Alkaline Phosphatase 98, Total Protein 5.7 L, Albumin 1.8 L, Globulin 3.9, Albumin/Globulin Ratio 0.5 L 02/18/21 11:24: POC Glucose 98 02/18/21 13:00: Troponin I High Sens 416 H* 02/18/21 16:00: Troponin I High Sens 1179 H* 02/18/21 17:14: POC Glucose 65 L 02/18/21 18:10: Troponin I High Sens 2713 H* Micro: Microbiology 02/16/21 09:25 Urine Catheter - Alexandre Urine Culture - Final Culture exhibits no growth. 02/16/21 04:00 Blood Culture (Wb) - Other Blood Culture - Preliminary No growth in 48 hours. Cardiology Labs/Tests 02/18/21 05:00: WBC 8.1, RBC 3.12 L, Hgb 9.2 L, Hct 28.2 L, MCV 90.4, MCH 29.5, MCHC 32.6, Plt Count 87 L, MPV 9.9, Immature Gran % (Auto) 1.100 H, Neut % (Auto) 77.0 H, Lymph % (Auto) 11.1 L, [place] % (Auto) 7.2, Eos % (Auto) 3.6, Baso % (Auto) 0.0, Absolute Neuts (auto) 6.3, Nucleated RBC % 0 02/18/21 05:00: Sodium 145, Potassium 3.8, Chloride 116 H, Carbon Dioxide 22.0, Anion Gap 7, BUN 34 H, Creatinine 2.09 H, Est GFR (MDRD) Af Amer 30 L, Est GFR (MDRD) Non-Af 25 L, BUN/Creatinine Ratio 16.3, Glucose 148 H, Calcium 7.0 L, Magnesium 1.8, Total Bilirubin 0.40 Rhythm: Atrial fibrillation EKG: As noted above ECHO: As noted below Radiography Diagnostic Testing: Radiology Impression Echocardiogram 02/18/21 14:27 Interpretation Summary The study was technically difficult. Contrast injection was performed. Left ventricular systolic function is normal. The estimated ejection fraction is 60 %. D shaped septum in systole and diastole. Moderate concentric left ventricular hypertrophy. Trivial mitral valve insufficiency. Mild tricuspid valve insufficiency. Mild focal aortic valve thickening. Trivial aortic valve insufficiency. Right ventricular systolic pressure estimated to be 36 mmHg. Ordering Physician: Shawnee Menon Referring Physician: Shawn Almeida Performed By: Neeta Toscano RDCS, RVT
[2021-02-18] MEDS: 0.9% Saline Lock 10 ML Syringe IV ×2 (21:04→23:16)
[2021-02-18] MEDS: Atorvastatin Calcium 40 MG Tablet PO (21:28)
[2021-02-18 21:35] LABS: Bedside Glucose 52 mg/dL (70-110)
[2021-02-18] MEDS: Alteplase 2 MG/2 ML Vial IV (22:17)
[2021-02-19] VITALS (48 sets, daily range): BP systolic 94–142; BP diastolic 57–96; PULSE 61–121; RESP 16–30; TEMP 36.3–36.8; O2SAT 90–98
[2021-02-19] MEDS: Ipratropium/Albuterol Sulfate 3 ML AMPUL.NEB INHALATION ×3 (05:24→19:40)
--- NOTE | 2021-02-19 05:55 | EKG12_ITS ---
Test Reason : AM EKG Blood Pressure : / mmHG Vent. Rate : 108 BPM Atrial Rate : 107 BPM P-R Int : 000 ms QRS Dur : 132 ms QT Int : 380 ms P-R-T Axes : 000 -13 071 degrees QTc Int : 509 ms Atrial fibrillation with rapid ventricular response Right bundle branch block Abnormal ECG Confirmed by GILBERT ROWELL, BOB ([id number]), science editor GULSHAN TRAYLOR ([id number]) on 02/23/2021 10:44:57 AM Referred By: VEENA Confirmed By:BOB HUNT MD
[2021-02-19 07:07] LABS: Absolute Lymphocyte Count 0.75 X10^3/uL (0.83-4.51); Absolute Neutrophil Count 6.3 X10^3/uL (2.0-7.7); Basophil# 0.01 X10^3/uL; Basophil% 0.1 % (0-1); Eosinophil# 0.16 X10^3/uL; Hematocrit 28.8 % (37-47); Hemoglobin 9.3 g/dL (12.0-15.0); Lymphocyte # 0.75 X10^3/ul (0.83-4.51); Lymphocyte % 9.6 % (19-41); Mean Corp Hgb Conc 32.3 g/dL (32-36); Mean Corpuscular Hgb 29.4 pg (27.0-32.0); Mean Corpuscular Volume 91.1 fL (81-99); Mean Platelet Vol. 11.4 fl (6.2-12.0); Monocyte# 0.48 X10^3/uL; Monocyte% 6.1 % (0-10); NRBC Flagged by Analyzer 0 % (0-5); Neutrophil # 6.32 X10^3/uL (2.7-7.7); Neutrophil % 80.9 % (47-70); POSITIVE COUNT YES; Platelet Count 74 K/mm3 (150-450); RBC Distribution Width CV 14.6 % (11.6-14.6); RBC Distribution Width SD 48.8 fl (35.1-43.9); Red Blood Count 3.16 M/mm3 (4.2-5.4); White Blood Count 7.8 K/mm3 (4.4-11.0)
[2021-02-19 07:26] LABS: Vancomycin, Random Level 18.5 ug/mL (0.0-15.0)
--- NOTE | 2021-02-19 07:39 | PN.CC_ITS ---
Assessment & Plan Assessment/Plan (1) Acute blood loss anemia: (2) Hematuria: (3) Acute respiratory failure with hypoxia: (4) Thrombocytopenia: (5) Hyperglycemia: PLAN: RECOMMENDATIONS: 1. Lasix as needed to help with euvolemia. Consider diuretics today. 2. Aggressive pulmonary toileting. Increase activity as tolerated 3. Defer to GI and urology for blood loss 4. Possibly okay to discontinue empiric antibiotics given negative cultures 5. Keep platelets above 50,000 while actively having hematuria 6. Continue Lantus given hyperglycemia 7. Coordinate with cardiology for possible cardioversion 8. Okay to leave the intensive care unit to stepdown status after recovered from cardioversion IMPRESSIONS: 1. Acute on chronic hypoxic respiratory failure secondary to acute on chronic CHF Patient presented with thrombocytopenia and anemia, likely secondary to GI/ sources. Patient received significant volume related to blood products. Patient appeared to have responded to BiPAP until diuretics could take effect. Continue with aggressive pulmonary toileting. We will continue diuretics as necessary to help with respiratory status. This is complicated by a recent COVID-19 hospitalization. Patient appears to be to her baseline oxygenation status. Okay to leave the intensive care unit to stepdown status. 2. Potential sepsis in the setting of acute blood loss anemia secondary to ureter bleeding Patient significantly debilitated given recent protracted hospitalization. Patient does have ureteral stents with hematuria, so bacteremia is possible. Cultures have been sent. Likely okay to discontinue antibiotics. Patient has remained hemodynamically stable, but hydralazine has been held. Okay to continue with Coreg for now. Bleeding is improving 3. Uncontrolled diabetes mellitus type 2 Unclear if patient has an increased endogenous steroid production leading to hyperglycemia. Patient is not on steroids at this time. Lantus will be increased. Continue with sliding scale. 4. Debilitated/advanced age/recent DVT/thrombocytopenia Complicates care, management, recovery and prognosis. 5. A. fib with RVR?new onset Unclear etiology. Patient has been on amiodarone overnight, but remains in A. fib. Did discuss with cardiology at length. Optimally, anticoagulation will be avoided given ureteral bleeding. Patient has not been in A. fib for more than 48 hours. Will attempt a cardioversion later today. I have been asked to provide sedation as a separate procedure. Subjective Subjective Patient did okay yesterday. Unfortunately, patient developed A. fib with RVR later in the afternoon and was not transferred from the intensive care unit. Patient has remained stable on nasal cannula oxygen. Patient's hematuria has slightly improved, but some clots are still noted. Patient still reports generalized body aches. Objective Data Objective Data Vital Signs: Vital Signs Temp Pulse Resp BP Pulse Ox 36.3 C L 95 17 121/70 H 96 02/19/21 04:00 02/19/21 07:25 02/19/21 06:00 02/19/21 07:25 02/19/21 06:00 Oxygen Flow Rate (L/min) 6 Oxygen Delivery Method Nasal Cannula Weight: 58.2 kg Body Mass Index (BMI) 23.1 Intake & Output: Intake and Output for Last 24 Hours 02/17/21 02/18/21 02/19/21 23:59 23:59 23:59 Intake Total 1590 / 1598 2335 / 2335 250 / 250 Output Total 1800 / 1850 800 / 800 Balance -210 / -252 1535 / 1535 250 / 250 Medical Nutrition Assessment Dietitian: Malnutrition Criteria Met Start: 02/16/21 15:42 Freq: Status: Active Protocol: Document 02/17/21 10:47 AG (Rec: 02/17/21 10:47 AG [id number]) Nutrition Malnutrition Evidence of Malnutrition Exists Yes Malnutrition (severe): Acute Illness/Injury Evidenced By Suboptimal Energy Intake ( Severe),Weight Loss (Severe) Clinical Problem Acute Disease or Injury Related Malnutrition Etiology Severe protein-calorie malnutrition in the context of acute illness related to inadequate oral intake d/t COVID Signs/Symptoms as evidenced by 11#/8% wt loss x 1 month and PO meeting less than 50% estimated nutrition needs x 1 month 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 Dietitian Recommendations/Changes Continue Carbohydrate- Controlled diet (no caloric/ cardiac diet restriction) d/t malnutrition; Will continue 240ml glucerna shake w/ breakfast and ensure pudding BID with lunch/dinner. Will adjust ONS to optimize intake and prevent further wt loss. Lab / Micro Data Result Diagrams: 02/19/21 06:50 02/19/21 06:50 Labs: Laboratory Results - last 24 hr 02/18/21 11:24: POC Glucose 98 02/18/21 13:00: Troponin I High Sens 416 H* 02/18/21 16:00: Troponin I High Sens 1179 H* 02/18/21 17:14: POC Glucose 65 L 02/18/21 18:10: Troponin I High Sens 2713 H* 02/18/21 21:20: POC Glucose 52 L 02/19/21 06:50: Random Vancomycin 18.5 H 02/19/21 06:50: WBC 7.8, RBC 3.16 L, Hgb 9.3 L, Hct 28.8 L, MCV 91.1, MCH 29.4, MCHC 32.3, RDW Std Deviation 48.8 H, RDW Coeff of Wade 14.6, Plt Count 74 L, MPV 11.4, Immature Gran % (Auto) 1.300 H, Neut % (Auto) 80.9 H, Lymph % (Auto) 9.6 L , [place] % (Auto) 6.1, Eos % (Auto) 2.0, Baso % (Auto) 0.1, Absolute Neuts (auto) 6.3, Absolute Lymphs (auto) 0.75 L, Nucleated RBC % 0 Micro: Microbiology 02/16/21 09:25 Urine Catheter - Alexandre Urine Culture - Final Culture exhibits no growth. 02/16/21 04:00 Blood Culture (Wb) - Other Blood Culture - Preliminary No growth in 48 hours. 02/16/21 20:35 Stool Stool Occult Blood (TANIYA) - Final Occult Blood Positive 02/16/21 09:25 Urine, Clean Catch Legionella Antigen - Final 02/16/21 09:25 Urine, Clean Catch Streptococcus pneumoniae Antigen (M - Final Radiography Diagnostic Testing: Radiology Impression Echocardiogram 02/18/21 14:27 Interpretation Summary The study was technically difficult. Contrast injection was performed. Left ventricular systolic function is normal. The estimated ejection fraction is 60 %. D shaped septum in systole and diastole. Moderate concentric left ventricular hypertrophy. Trivial mitral valve insufficiency. Mild tricuspid valve insufficiency. Mild focal aortic valve thickening. Trivial aortic valve insufficiency. Right ventricular systolic pressure estimated to be 36 mmHg. Ordering Physician: Shawnee Menon Referring Physician: Shawn Almeida Performed By: Neeta Toscano, SOFYA, RVT Physical Exam Const alert and no apparent distress Constitutional Narrative: Conversational and interactive. General Appearance: cooperative and comfortable HEENT normocephalic Eyes EOMs intact bilaterally Eyes Narrative: No icterus Neck no lymphadenopathy Neck Narrative: Right IJ triple-lumen catheter. Appears to be some superficial bruising around the catheter site. Chest inspection of chest normal Chest: symmetrical chest wall rise; Negative for crepitus Resp normal respiratory effort Auscultation: rhonchi, wheezes and diminished lung sounds; Negative for rales Cardio regular rate, regular rhythm, S1 normal heart sound and S2 normal heart sound GI normal to inspection, nondistended, normoactive bowel sounds, soft to palpation, non-tender and non-distended Narrative: Improved hematuria, but some clots still noted. Extremity Extremity Narrative: No edema. General Extremity: clubbing; Negative for cyanosis or edema Skin Skin Narrative: Bruising in her neck from triple-lumen catheter as well as in her groin. These do not appear to be expanding Neuro Neuro Narrative: Moves all extremities spontaneously. Right facial droop noted Sensorium / Orientation: alert Charges/Coding Visit Charges Inpatient E&M: 42590 Subs Hosp L3
[2021-02-19 07:47] LABS: ALB/GLOB Ratio 0.5 RATIO (0.9-2.4); AST(SGOT) 127 U/L (15-37); Alanine Aminotransfer ALT/SGPT 42 U/L (13-56); Albumin, Serum 1.9 g/dL (3.2-5.0); Alkaline Phosphatase 184 U/L (45-117); Anion Gap 8 (5-15); BUN 35 mg/dL (7-18); BUN/Creat Ratio 14.3 RATIO (10-20); Calcium,Total 7.2 mg/dL (8.5-10.1); Chloride 115 mmol/L (98-107); Creatinine, Serum 2.44 mg/dL (0.55-1.02); EST Glomerular Filtration Rate 21 mL/min (>60); Est Glom Filt Rate - Afr Amer 25 mL/min (>60); Globulin 3.8 g/dL (2.2-4.2); Glucose 47 mg/dL (74-106); Potassium 4.3 mmol/L (3.5-5.1); Protein, Total 5.7 g/dL (6.4-8.2); Sodium Level 143 mmol/L (136-145); Thyroid Stim Hormone (TSH) 5.84 uIU/mL (0.358-3.74); Troponin-I HS 20707 pg/mL (3.0-54.0)
--- NOTE | 2021-02-19 08:15 | EKG12_ITS ---
Test Reason : POST CARDIOVERSION Blood Pressure : / mmHG Vent. Rate : 068 BPM Atrial Rate : 068 BPM P-R Int : 164 ms QRS Dur : 128 ms QT Int : 504 ms P-R-T Axes : 021 -17 -43 degrees QTc Int : 535 ms Normal sinus rhythm Right bundle branch block Abnormal ECG Confirmed by GILBERT ROWELL, BOB ([id number]), editor managing newspaper GULSHAN TRAYLOR ([id number]) on 02/23/2021 10:43:29 AM Referred By: DR HUNT Confirmed By:BOB HUNT MD
--- NOTE | 2021-02-19 08:16 | PN.CARD_ITS ---
Subjective Subjective The patient is a wake and alert. She has her chronic shortness of breath and chronic cough. Objective Data Vital Signs: Vital Signs Temp Pulse Resp BP Pulse Ox 97.4 F L 95 17 121/70 H 96 02/19/21 04:00 02/19/21 07:25 02/19/21 06:00 02/19/21 07:25 02/19/21 06:00 Oxygen Flow Rate (L/min) 6 Oxygen Delivery Method Nasal Cannula Weight: 128 lb 4.944 oz Body Mass Index (BMI) 23.1 Intake & Output: Intake and Output for Last 24 Hours 02/17/21 02/18/21 02/19/21 23:59 23:59 23:59 Intake Total 1590 / 1598 2335 / 2335 250 / 250 Output Total 1800 / 1850 800 / 800 Balance -210 / -252 1535 / 1535 250 / 250 Lab / Micro Data Result Diagrams: 02/19/21 06:50 02/19/21 06:50 Labs: Laboratory Results - last 24 hr 02/18/21 11:24: POC Glucose 98 02/18/21 13:00: Troponin I High Sens 416 H* 02/18/21 16:00: Troponin I High Sens 1179 H* 02/18/21 17:14: POC Glucose 65 L 02/18/21 18:10: Troponin I High Sens 2713 H* 02/18/21 21:20: POC Glucose 52 L 02/19/21 06:50: Sodium 143, Potassium 4.3, Chloride 115 H, Carbon Dioxide 20.0 L , Anion Gap 8, BUN 35 H, Creatinine 2.44 H, Estim Creat Clear Calc 15.50, Est GFR (MDRD) Af Amer 25 L, Est GFR (MDRD) Non-Af 21 L, BUN/Creatinine Ratio 14.3, Glucose 47 L, Calcium 7.2 L, Total Bilirubin 0.50, AST 127 H, ALT 42, Alkaline Phosphatase 184 H, Troponin I High Sens 13547 H*, Total Protein 5.7 L, Albumin 1.9 L, Globulin 3.8, Albumin/Globulin Ratio 0.5 L, TSH 5.84 H 02/19/21 06:50: Random Vancomycin 18.5 H 02/19/21 06:50: WBC 7.8, RBC 3.16 L, Hgb 9.3 L, Hct 28.8 L, MCV 91.1, MCH 29.4, MCHC 32.3, RDW Std Deviation 48.8 H, RDW Coeff of Wade 14.6, Plt Count 74 L, MPV 11.4, Immature Gran % (Auto) 1.300 H, Neut % (Auto) 80.9 H, Lymph % (Auto) 9.6 L , [place] % (Auto) 6.1, Eos % (Auto) 2.0, Baso % (Auto) 0.1, Absolute Neuts (auto) 6.3, Absolute Lymphs (auto) 0.75 L, Nucleated RBC % 0 Micro: Microbiology 02/16/21 09:25 Urine Catheter - Alexandre Urine Culture - Final Culture exhibits no growth. 02/16/21 04:00 Blood Culture (Wb) - Other Blood Culture - Preliminary No growth in 48 hours. Cardiology Labs/Tests 02/19/21 06:50: Sodium 143, Potassium 4.3, Chloride 115 H, Carbon Dioxide 20.0 L , Anion Gap 8, BUN 35 H, Creatinine 2.44 H, Est GFR (MDRD) Af Amer 25 L, Est GFR (MDRD) Non-Af 21 L, BUN/Creatinine Ratio 14.3, Glucose 47 L, Calcium 7.2 L, Total Bilirubin 0.50 02/19/21 06:50: WBC 7.8, RBC 3.16 L, Hgb 9.3 L, Hct 28.8 L, MCV 91.1, MCH 29.4, MCHC 32.3, Plt Count 74 L, MPV 11.4, Immature Gran % (Auto) 1.300 H, Neut % (Auto) 80.9 H, Lymph % (Auto) 9.6 L, [place] % (Auto) 6.1, Eos % (Auto) 2.0, Baso % (Auto) 0.1, Absolute Neuts (auto) 6.3, Nucleated RBC % 0 Rhythm: Atrial fibrillation EKG: Atrial fibrillation; right bundle branch block Radiography Diagnostic Testing: Radiology Impression Echocardiogram 02/18/21 14:27 Interpretation Summary The study was technically difficult. Contrast injection was performed. Left ventricular systolic function is normal. The estimated ejection fraction is 60 %. D shaped septum in systole and diastole. Moderate concentric left ventricular hypertrophy. Trivial mitral valve insufficiency. Mild tricuspid valve insufficiency. Mild focal aortic valve thickening. Trivial aortic valve insufficiency. Right ventricular systolic pressure estimated to be 36 mmHg. ____ Ordering Physician: Shawnee Menon Referring Physician: Shawn Almeida Performed By: Neeta Toscano, SOFYA, RVT Physical Exam Narrative This is a pale appearing older than stated age appearing 75-year-old white female. Const alert and oriented x3 Orientation / Consciousness: awake HEENT normocephalic, head/scalp atraumatic and hearing grossly normal bilaterally Eyes PERRL, EOMs intact bilaterally and conjunctivae normal Neck full ROM, supple and no JVD Resp Auscultation: rhonchi Cardio Rhythm: abnormal rhythm irregularly irregular Heart Sounds: S1 normal and S2 normal GI normal to inspection, nondistended, normoactive bowel sounds Extremity no pedal edema Skin no rashes or lesions noted Neuro oriented x3, moves all extremities, no focal motor deficits and no sensory deficits noted Psych cooperative Assessment & Plan Assessment/Plan (1) Abnormal cardiac enzyme level: PLAN: The patient does have abnormal troponin I levels. It appears she has had abnormal troponin I levels in the past. At the present time her troponin I levels raise concern as to whether or not she truly has a type I non-STEMI versus a type II non-STEMI secondary to supply demand mismatch being brought out by her multiple noncardiovascular issues such as her underlying pulmonary disease issues and infectious disease related issues superimposed upon the additional finding of atrial fibrillation. At the moment she does not complain of classic symptoms of an acute coronary syndrome event. Her ECG does not demonstrate any acute changes other than her atrial fibrillation. Her echocardiogram is as noted. At the moment her cardiac enzymes and her cardiac rhythm can be followed. She can be treated for the possibility of underlying cardiovascular disease with respect to CAD. Ideally this would include agents such as aspirin, a ntiplatelets, and anticoagulants, however, she is not a candidate for these at this time secondary to concerns of her ongoing acute blood loss related issues requiring PRBC transfusions. She can also be treated with medicine such as nitrates as needed, beta-blockers (if her blood pressure tolerates), afterload reducing agents (if her blood pressure tolerates), and lipid-lowering agents. She does not appear to be an ideal candidate for additional noninvasive or invasive cardiovascular studies at this time secondary to her multiple noncardiac comorbidities and issues. (2) Atrial fibrillation: PLAN: She remains in atrial fibrillation despite the addition of IV amiodarone. This may be brought out by her various noncardiac comorbidities. At the present time she can continue rate control as tolerated. Again she is not an ideal candidate for anticoagulant therapy at this time secondary to her underlying hematologic issues. As the patient has remained in atrial fibrillation and appears to be less than 24 hours since developing atrial fibrillation it may not be unreasonable to attempt a synchronized biphasic DC cardioversion to regain sinus rhythm. The procedure and risks were discussed with the patient. She was agreeable to this approach. (3) Acute blood loss anemia: PLAN: She has been evaluated. She has received PRBCs. To be reasonable to try and keep her hemoglobin elevated to maximize her oxygen carrying capacity. (4) Thrombocytopenia: PLAN: Her thrombocytopenia also presents issues with respect to antiplatelet and anticoagulant therapy. (5) DVT (deep venous thrombosis): PLAN: Again she is not an ideal candidate for long-term oral anticoagulant therapy at this time. He is being followed by internal medicine for this issue. (6) Acute and chronic respiratory failure with hypoxia: PLAN: She does have what appears to be acute on chronic respiratory related issues thought secondary to her history of COVID-19 pneumonia. She continues to be followed by internal medicine and pulmonology/critical care medicine. (7) Sepsis: QUALIFIERS: Sepsis type: sepsis due to unspecified organism Sepsis acute organ dysfunction status: with acute organ dysfunction Severe sepsis acute organ dysfunction type: encephalopathy Severe sepsis shock status: without septic shock Qualified Code(s): A41.9 - Sepsis, unspecified organism; R65.20 - Severe sepsis without septic shock; G93.40 - Encephalopathy, unspecified PLAN: There is concern of underlying sepsis which could trigger her abnormal cardiac enzymes and her atrial dysrhythmia. She is continuing medical therapy for such. (8) Pneumonia: QUALIFIERS: Pneumonia type: due to unspecified organism Laterality: unspecified laterality Lung location: unspecified part of lung Qualified Code(s): J18.9 - Pneumonia, unspecified organism PLAN: Again she is being evaluated by internal medicine and pulmonology and critical care medicine for concerns of her underlying recent COVID-19 pneumonia and other infectious disease related issues requiring medical management. Again her pneumonia may be a triggering event for her atrial dysrhythmia. (9) HLD (hyperlipidemia): PLAN: She can continue lipid-lowering therapy as deemed appropriate. (10) Benign essential HTN: PLAN: Her blood pressure can be followed and taken into consideration with her medications. Addt'l Comments The patient's case has been discussed and reviewed with Dr. Fernandez. This note was generated using a voice recognition system and there may be incorrect words, spelling or punctuation that were not noted when reviewing the office note prior to saving.
--- NOTE | 2021-02-19 08:32 | PCM.RX.CS ---
Consult Pharmacy has been consulted to manage selected antiobiotic: Vancomycin Type of Consult: Follow-up Labs: Sodium 143 mmol/L (136-145) 02/19/21 06:50 Potassium 4.3 mmol/L (3.5-5.1) 02/19/21 06:50 Chloride 115 mmol/L (98-107) H 02/19/21 06:50 Carbon Dioxide 20.0 mmol/L (21.0-32.0) L 02/19/21 06:50 Anion Gap 8 (5-15) 02/19/21 06:50 BUN 35 mg/dL (7-18) H 02/19/21 06:50 Creatinine 2.44 mg/dL (0.55-1.02) H 02/19/21 06:50 Est GFR (MDRD) Af Amer 25 mL/min (>60) L 02/19/21 06:50 Est GFR (MDRD) Non-Af 21 mL/min (>60) L 02/19/21 06:50 BUN/Creatinine Ratio 14.3 RATIO (10-20) 02/19/21 06:50 Glucose 47 mg/dL (74-106) L 02/19/21 06:50 Random Vancomycin 18.5 ug/mL (0.0-15.0) H 02/19/21 06:50 Microbiology: Microbiology 02/16/21 17:00 Blood Culture (Wb) - Anticubital Left Blood Culture - Preliminary No growth in 48 hours. 02/16/21 09:25 Urine Catheter - Alexandre Urine Culture - Final Culture exhibits no growth. 02/16/21 04:00 Blood Culture (Wb) - Other Blood Culture - Preliminary No growth in 48 hours. 02/16/21 20:35 Stool Stool Occult Blood (TANIYA) - Final Occult Blood Positive 02/16/21 09:25 Urine, Clean Catch Legionella Antigen - Final 02/16/21 09:25 Urine, Clean Catch Streptococcus pneumoniae Antigen (M - Final Goal Trough: 15-20 mcg/mL Pharmacy Plan for Drug Dosing: VANCOMYCIN LEVEL RECEIVED Current Vancomycin Dose: renal dosing, last dose was 1000mg x1 on 02/17/21 at 0821 Number of Doses Received: Vancomycin Level: 18.5 Hours Since Last Dose: Renal Function: SrCr 2.44 Renal Function Trend: SrCr increasing Lab/Micro: Vancomycin Plan/Comments: based on resulted trough of 18.5, recommend a x1 dose of 750mg on 02/19/21 Pending Level: 02/21/21 at 0600 Pharmacy Service will continue to monitor and adjust dosing as required. Follow-Up Labs: Trough Vancomycin - 02/21/21 at 0600
[2021-02-19] MEDS: Propofol 200 MG/20 ML Vial 20 MG IV BOLUS ×2 (08:44)
[2021-02-19] MEDS: 0.9% Saline Lock 10 ML Syringe IV (08:45)
--- NOTE | 2021-02-19 08:50 | PCM.OP.PRO ---
Assessment & Plan Assessment/Plan (1) Atrial fibrillation: (2) Abnormal cardiac enzyme level: (3) Acute blood loss anemia: Procedure Report Date of Procedure: 02/19/21 CONSCIOUS SEDATION REPORT BRIEF HISTORY OF PRESENT ILLNESS: The patient is a 75-year-old female who presented to [facility] for acute blood loss anemia and respiratory failure. Patient was in the intensive care unit initially requiring BiPAP therapy. Patient had improved with Lasix therapy, but then subsequently developed A. fib with RVR. Given patient's high bleeding risk, it was determined the patient should be cardioverted. This procedure did take place in the intensive care unit with full monitoring. PHYSICAL EXAMINATION: VITAL SIGNS: Reviewed and were acceptable. GENERAL: The patient is a female, in no apparent distress, speaking in full sentences. HEENT: Normocephalic, atraumatic. Mucous membranes are moist and pink. Good mouth opening noted. Trachea is midline. Good neck mobility. MP II CHEST: S1, S2 irregularly irregular. No murmurs, rubs or gallops were noted. LUNGS: Clear to auscultation bilaterally without appreciable wheezes, rales or rhonchi. ABDOMEN: Soft, nontender, nondistended. Positive bowel sounds. EXTREMITIES: There is no clubbing, cyanosis or edema. ASA Class: II DESCRIPTION OF PROCEDURE: After confirmation of informed consent, the patient's anesthesia plan was reviewed in detail. Propofol was chosen. Risks and benefits were reviewed and the patient agreed to proceed. At 8:44 AM, the patient was given 40 mg of propofol 4 mg of etomidate. The patient achieved an appropriate level of sedation and received 1 attempt synchronized cardioversion, at [address] Mcclelland at the bedside. This was successful in achieving normal sinus rhythm. The patient was monitored until 9 AM, at which time the patient reached their baseline mental status and function. The patient tolerated the procedure well. COMPLICATIONS: None ESTIMATED BLOOD LOSS: None RECOMMENDATIONS: Okay to recover in usual fashion. Procedures Pulmonary 9xxxx: [id number] Con Sedation (Independent of clinical assessment)
--- NOTE | 2021-02-19 09:11 | CARDIOVERS_ITS ---
Cardioversion Cardioversion: Date: 02-19-2021 Procedure: Synchronized Biphasic DC Cardioversion Indications: Atrial fibrillation Consent: Per the Patient Anesthesia: per Dr. Fernandez of pulmonology and critical care medicine with propofol 40 mg IV push total Procedure: Synchronized Biphasic DC Cardioversion: 200 J x 1: Result: Sinus rhythm Complications: no apparent complications This note was generated with [employer] dictation software. It may contain incorrect words, spelling, and punctuation that were not noted in checking the note before signing.
[2021-02-19] MEDS: Dextrose 50%-Water 25 GM/50 ML DISP.SYRIN IV (09:34)
[2021-02-19] MEDS: CHLORHEXIDINE GLUC 2% CLOTH 1 EACH TOWELETTE TOPICAL (10:00)
--- NOTE | 2021-02-19 10:00 | CON.PCM.PA_ITS ---
Assessment & Plan Assessment/Plan (1) Debility: (2) Shortness of breath: (3) Acute blood loss anemia: (4) Sepsis: QUALIFIERS: Sepsis acute organ dysfunction status: with acute organ dysfunction Sepsis type: sepsis due to unspecified organism Severe sepsis acute organ dysfunction type: encephalopathy Severe sepsis shock status: without septic shock Qualified Code(s): A41.9 - Sepsis, unspecified organism; R65.20 - Severe sepsis without septic shock; G93.40 - Encephalopathy, unspecified (5) Hematuria: (6) Hydronephrosis: (7) Acute and chronic respiratory failure with hypoxia: (8) DVT (deep venous thrombosis): (9) Atrial fibrillation: (10) Pneumonia: QUALIFIERS: Laterality: unspecified laterality Lung location: unspecified part of lung Pneumonia type: due to unspecified organism Qualified Code(s): J18.9 - Pneumonia, unspecified organism PLAN: 75-year-old female with multiple complex comorbidities, seen today for palliative care consultation for symptom management of shortness of breath, weakness, and various other complaints. She did have an outpatient initial palliative consultation scheduled for 03/02, consents are signed. 1. Weakness and debility: Significant given her multiple hospital admissions and ECF stays in the past several months. She seems quite debilitated. Suspect she will need ECF placement. I do not see her doing well overall. Remains a full code. We discussed this as well, she does not appear to grasp the concept of the different CODE STATUS. We will revisit this at a later date, probably will require an ACP visit. 2. Shortness of breath: Multifactorial, currently on 6 L and appears quite dyspneic/tachypneic, which according to staff has been consistent t/o her stay. Had a cardioversion this morning for A. fib RVR. She has some coarse wheezing. Scheduled Duonebs and PRN albuterol. I would not prescribe any medications for her shortness of breath such as Ativan or Roxanol due to risk of respiratory depression, however if she is agreeable to hospice, would recommend sending her to the [facility] for symptom management. I do not feel she has much time left. We discussed hospice and palliative services. Her main concern is finding a home so she can get her dog back. She deflects when talking about her serious health condition and probable limited life expectancy. Adds that she has limited reading and writing ability. She is agreeable to a liaison visit to further discuss hospice as I think that is more appropriate than palliative, we will need to accommodate and review information with her since she has limited reading ability. If the patient is discharged from the hospital, she should be seen by palliative for follow-up SAIRA, we will arrange that. Obviously she is high risk for readmission to the hospital. 3. Acute blood loss anemia/hematuria/hydronephrosis/acute on chronic hypoxemic respiratory failure/current DVT/atrial fibrillation/HTN/recent COVID-19 infection/pneumonia: Complicates overall care, management, recovery, and prognosis. Again, patient has a life expectancy of less than 6 months, I would better estimate less than 6 weeks. She really should be discharged to an extended care facility if not hospice/IPU. She cannot care for herself at home. It is unclear if she even has a place to stay. She has a son and daughter, but reports they do not help much. Thank you for the opportunity to participate in this patient's care, please do not hesitate to contact [facility] with any further questions or concerns. Palliative direct line is [phone]. We will follow up after discharge and will discuss palliative services further at that time. Greater than 50% of F2F visit dedicated to education and counseling of palliative care services, medications, comorbid conditions and potential ass istance with management, documentation regarding the above, discussing case with hospitalist, and plan of care moving forward. Start time: 1000 End time: 1115 HPI Consult Data Date of Consult: 02/19/21 HPI Narrative HPI Narrative: DOMINICK NEELY, is a 75 F who presented back to [facility] 02/16/2021 after being discharged 02/11 for hospital stay for respiratory failure secondary to Covid, was in the hospital at that time for 2 weeks. Her presenting symptoms this time was hematuria. Hemoglobin was significantly low, less than 6. She was admitted for further evaluation of suspected sepsis, thrombocytopenia, metabolic encephalopathy, and acute blood loss anemia. Dr. Kaminski was consulted and CT abdomen/pelvis was obtained. Showed patchy bilateral pulmonary consolidation suggesting pneumonia, bilateral ureteral stents in place with mild residual right hydronephrosis and a nonobstructing 6 mm left renal stone, mild soft tissue swelling right groin secondary to recent central line removal and or catheterization, and other nonemergent findings. She is received several units of blood and became hypoxic. She was diuresed. Notably on Eliquis for left lower extremity DVT. She was transferred to the ICU for closer observation. Given her multiple hospital and ECF stays, she has become quite weak and debilitated. It appears she has been in and out of of [facility] at least 6 times since October 2020. Overall, patient is in very poor health. During this hospital stay, she went into A. fib RVR requiring cardioversion 02/19/2021. She is being followed by Dr. Mcclelland, cardiology since she had elevated cardiac enzymes. Patient not candidate for long-term oral anticoagulant therapy secondary to her recurrent hematuria and anemia. H&H today were 9.3/28.8. Her renal function is still not ideal, BUN 35 and creatinine 2.44 today. However, this appears to be around her baseline renal function. Echocardiogram 02/18 which showed an estimated EF of 60%, normal LV systolic function, moderate concentric LVH, D-shaped septum in systole and diastole, mild TVI, trivial mitral and aortic valve insufficiency, RVSP estimated 36 mmHg. Patient reports significant shortness of breath. She reports activity i ntolerance and weakness, not able to walk much. Denies any N/V/D. Bowels are moving okay. No dysuria. She has a cough, mostly nonproductive. It is very coarse. She is not having any chest pain or syncope. No dizziness. Denies edema. No vision changes. [facility] Medical History Abnormal cardiac enzyme level Anxiety Atrial fibrillation Benign essential HTN Chronic kidney disease, stage 3b Cognitive decline COVID-19 Depression Diabetes Gastric reflux GERD (gastroesophageal reflux disease) Hematuria High cholesterol History of tobacco use HLD (hyperlipidemia) HLD (hyperlipidemia) HTN (hypertension) Hydronephrosis Hydronephrosis Hypertension Injury of back Nephrolithiasis Non-smoker Pyelonephritis Shortness of breath on exertion Uncontrolled type 2 diabetes mellitus Uses wheelchair Home Medications amlodipine 10 mg PO DAILY 06/05/18 [History Last Taken 08/04/19] atorvastatin 40 mg PO QHS 06/05/18 [History Last Taken 08/04/19] lansoprazole 30 mg PO DAILY 11/03/20 [History Last Taken Unknown] pregabalin 50 mg PO TID #0 cap 11/07/20 [Rx Last Taken 08/04/19] ondansetron 4 mg PO TID PRN 3 Days #10 tab 12/02/20 [Rx Last Taken Unknown] docusate sodium [DOK] 100 mg PO DAILY 12/17/20 [History Last Taken Unknown] hydralazine 100 mg PO TID 12/17/20 [History Last Taken Unknown] acetaminophen [Tylenol] 650 mg PO Q4H PRN PRN #0 tab 01/21/21 [Rx Last Taken Unknown] guaifenesin 20 ml PO Q4H PRN PRN #0 ml 01/21/21 [Rx Last Taken Unknown] Eliquis 10 mg PO BID 01/29/21 [History Last Taken Unknown] Lantus Solostar U-100 Insulin 10 unit SUBCUT QPM 01/29/21 [History Last Taken Unknown] aspirin 81 mg PO DAILY 01/29/21 [History Last Taken Unknown] carvedilol 3.125 mg PO BID 01/29/21 [History Last Taken Unknown] insulin lispro [Humalog KwikPen Insulin] See Protocol SUBCUT ACHS 01/29/21 [History Last Taken Unknown] tamsulosin 0.4 mg PO DAILY@1730 01/29/21 [History Last Taken Unknown] dexamethasone [Decadron] 6 mg PO DAILY #0 tab 02/11/21 [Rx Last Taken Unknown] Allergy/AdvReac Type Severity Reaction Status Date / Time blue dye Allergy PASS OUT Verified 01/18/21 12:11 Family History Father Diabetes Mother Hypertension Surgical History H/O: hysterectomy History of cholecystectomy History of cystoscopy Social History household members: none Smoking Status: Former smoker alcohol intake: never substance use type: does not use ROS ROS Narrative Review of systems otherwise negative from a constitutional, HEENT, respiratory, cardiovascular, GI, genitourinary, musculoskeletal, skin, neurologic, psychiatric and hematologic system unless stated above. Physical Exam Const alert General Appearance: cooperative, in distress Positive for respiratory (tachypneic, speaking in fragmented sentences.) and appears older than stated age HEENT normocephalic and head/scalp atraumatic Neck supple Resp Effort and Inspection: symmetric chest movement, tachypneic, uses accessory muscles and audible wheezes Auscultation: rales, rhonchi, wheezes and diminished lung sounds Cardio regular rate, regular rhythm, S1 normal heart sound and S2 normal heart sound GI normal to inspection, nondistended, normoactive bowel sounds Extremity General Extremity: Negative for clubbing or cyanosis Skin Skin Narrative: pale General Skin Exam: ecchymosis Neuro oriented x3, moves all extremities and no focal motor deficits Psych cooperative Activity / Motor Behavior: appropriate eye contact Thought Content: No hallucination(s) Insight: limited and other wants to talk more about finding her a house so she can have her dog back rather than her serious medical conditions.
[2021-02-19 10:06] LABS: Bedside Glucose 38 mg/dL (70-110)
[2021-02-19 10:06] LABS: Bedside Glucose 196 mg/dL (70-110)
--- NOTE | 2021-02-19 10:16 | NURSING ---
02/19/21 @ 1000- FSBS recheck was 196 after 25 g amp of dextrose 50% given at 0934. Patient now eating breakfast. Will continue to monitor. John Gomez RN
[2021-02-19] MEDS: Docusate Sodium 100 MG Capsule PO (10:35)
[2021-02-19] MEDS: Metoprolol Tartrate 25 MG Tablet PO ×2 (10:36→21:47)
[2021-02-19] MEDS: guaiFENesin 1,200 MG Tablet 1200 MG PO ×2 (10:36→21:47)
[2021-02-19] MEDS: amLODIPine 10 MG Tablet PO (10:37)
[2021-02-19 11:55] LABS: Bedside Glucose 145 mg/dL (70-110)
--- NOTE | 2021-02-19 14:07 | NURSING ---
02/19/21 @ 0844 - Consent obtained at 0800 [facility]- 40 mg of Propofol given IVP by Dr. Fernandez prior to start of procedure. 0846- 200 J synchronized cardioversion was delivered and successful. Patient rhythm change from Atrial Fibrillation to NSR was obtained. EKG obtained post cardioversion which showed NSR. See sediation documentation for assessment and VS post MAC. Will continue to monitor.
[2021-02-19 14:51] LABS: Heparin-Induced Plt Ab 0.096 OD (0.000-0.400)
--- NOTE | 2021-02-19 16:12 | PN.HOSP_ITS ---
Subjective Subjective Patient was sleeping upon my arrival but did wake up for exam her only interaction with me was to asked me to turn her shade down so the son was not in her eyes. She then closed her eyes and seemed to not want to interact any further. Objective Data Objective Data Vital Signs: Vital Signs Temp Pulse Resp BP Pulse Ox 97.9 F 62 24 H 108/67 92 02/19/21 12:00 02/19/21 13:48 02/19/21 13:01 02/19/21 13:48 02/19/21 12:00 Oxygen Flow Rate (L/min) 4 Oxygen Delivery Method Nasal Cannula Weight: 58.2 kg Body Mass Index (BMI) 23.1 Intake & Output: Intake and Output for Last 24 Hours 02/17/21 02/18/21 02/19/21 23:59 23:59 23:59 Intake Total 1590 / 1598 2335 / 2335 1216.38 / 1216.38 Output Total 1800 / 1850 800 / 800 240 / 240 Balance -210 / -252 1535 / 1535 976.38 / 976.38 Medical Nutrition Assessment Dietitian: Malnutrition Criteria Met Start: 02/16/21 15:42 Freq: Status: Active Protocol: Document 02/17/21 10:47 AG (Rec: 02/17/21 10:47 AG [id number]) Nutrition Malnutrition Evidence of Malnutrition Exists Yes Malnutrition (severe): Acute Illness/Injury Evidenced By Suboptimal Energy Intake ( Severe),Weight Loss (Severe) Clinical Problem Acute Disease or Injury Related Malnutrition Etiology Severe protein-calorie malnutrition in the context of acute illness related to inadequate oral intake d/t COVID Signs/Symptoms as evidenced by 11#/8% wt loss x 1 month and PO meeting less than 50% estimated nutrition needs x 1 month 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 Dietitian Recommendations/Changes Continue Carbohydrate- Controlled diet (no caloric/ cardiac diet restriction) d/t malnutrition; Will continue 240ml glucerna shake w/ breakfast and ensure pudding BID with lunch/dinner. Will adjust ONS to optimize intake and prevent further wt loss. Lab / Micro Data Result Diagrams: 02/19/21 06:50 02/19/21 06:50 Labs: Laboratory Results - last 24 hr 02/16/21 04:00: Heparin-induced Plt Ab 0.096 02/18/21 16:00: Troponin I High Sens 1179 H* 02/18/21 17:14: POC Glucose 65 L 02/18/21 18:10: Troponin I High Sens 2713 H* 02/18/21 21:20: POC Glucose 52 L 02/19/21 06:50: Sodium 143, Potassium 4.3, Chloride 115 H, Carbon Dioxide 20.0 L , Anion Gap 8, BUN 35 H, Creatinine 2.44 H, Estim Creat Clear Calc 15.50, Est GFR (MDRD) Af Amer 25 L, Est GFR (MDRD) Non-Af 21 L, BUN/Creatinine Ratio 14.3, Glucose 47 L, Calcium 7.2 L, Total Bilirubin 0.50, AST 127 H, ALT 42, Alkaline Phosphatase 184 H, Troponin I High Sens 30204 H*, Total Protein 5.7 L, Albumin 1.9 L, Globulin 3.8, Albumin/Globulin Ratio 0.5 L, TSH 5.84 H 02/19/21 06:50: Random Vancomycin 18.5 H 02/19/21 06:50: WBC 7.8, RBC 3.16 L, Hgb 9.3 L, Hct 28.8 L, MCV 91.1, MCH 29.4, MCHC 32.3, RDW Std Deviation 48.8 H, RDW Coeff of Wade 14.6, Plt Count 74 L, MPV 11.4, Immature Gran % (Auto) 1.300 H, Neut % (Auto) 80.9 H, Lymph % (Auto) 9.6 L , [place] % (Auto) 6.1, Eos % (Auto) 2.0, Baso % (Auto) 0.1, Absolute Neuts (auto) 6.3, Absolute Lymphs (auto) 0.75 L, Nucleated RBC % 0 02/19/21 09:24: POC Glucose 38 L* 02/19/21 10:00: POC Glucose 196 H 02/19/21 11:47: POC Glucose 145 H Micro: Microbiology 02/16/21 17:00 Blood Culture (Wb) - Anticubital Left Blood Culture - Preliminary No growth in 48 hours. 02/16/21 09:25 Urine Catheter - Alexandre Urine Culture - Final Culture exhibits no growth. 02/16/21 04:00 Blood Culture (Wb) - Other Blood Culture - Preliminary No growth in 48 hours. 02/16/21 20:35 Stool Stool Occult Blood (TANIYA) - Final Occult Blood Positive 02/16/21 09:25 Urine, Clean Catch Legionella Antigen - Final 02/16/21 09:25 Urine, Clean Catch Streptococcus pneumoniae Antigen (M - Final Radiography Diagnostic Testing: Radiology Impression Echocardiogram 02/18/21 14:27 Interpretation Summary The study was technically difficult. Contrast injection was performed. Left ventricular systolic function is normal. The estimated ejection fraction is 60 %. D shaped septum in systole and diastole. Moderate concentric left ventricular hypertrophy. Trivial mitral valve insufficiency. Mild tricuspid valve insufficiency. Mild focal aortic valve thickening. Trivial aortic valve insufficiency. Right ventricular systolic pressure estimated to be 36 mmHg. Ordering Physician: Shawnee Menon Referring Physician: Shawn Almeida Performed By: Neeta Toscano, SOFYA, RVT Physical Exam Const alert, oriented x3, no apparent distress and average body habitus Constitutional Narrative: Elderly white female lying in bed, sleeping but did awaken only to asked me to shot her shade and then she would no longer interact, appears comfortable, nontoxic Orientation / Consciousness: confused Exam Limitations: other limitations HEENT normocephalic, head/scalp atraumatic and moist oral mucous membranes Head and Scalp: normocephalic Resp normal respiratory effort, no retractions and no use of accessory muscles Resp Narrative: Scattered rhonchi and coarse cough, scattered wheezes and diffusely diminished Auscultation: rhonchi and wheezes; Negative for crackles or rales Cardio S1 normal heart sound, S2 normal heart sound, no murmurs, no rub, no gallops, no clicks and no JVD Cardio Narrative: Mild tachycardia with irregularly irregular rhythm GI normal to inspection, nondistended, normoactive bowel sounds, soft to palpation, non-tender and non-distended Extremity Extremity Narrative: Clubbing present, no cyanosis or edema Peripheral Pulses: Yes pulses 2+ throughout Skin no rashes or lesions noted, no wounds, skin turgor normal, no jaundice, no petechiae and no mottling Neuro oriented x3, moves all extremities and no focal motor deficits Neuro Narrative: Marked generalized weakness but no focal deficits, speech is clear today and patient appears stronger Sensorium / Orientation: awake and alert Speech: speech normal Psych Psych Narrative: Patient remains disinterested in her care Assessment & Plan Assessment/Plan (1) Acute and chronic respiratory failure with hypoxia: (2) Hydronephrosis: (3) Hematuria: (4) Acute blood loss anemia: (5) Thrombocytopenia: (6) DVT (deep venous thrombosis): PLAN: Acute on chronic hypoxic respiratory failure secondary to recent COVID-19 infection -Patient without history of heart failure -Echo done recently on 01/21/2021 shows an EF of 60% and a normal LV without diastolic dysfunction -It is conceivable that the patient could have pulmonary hypertension secondary to her chronic lung issues with recent Covid infection and her respiratory issues with transfusion are related to this -She has been weaned to 4 L nasal cannula with an SPO2 in the low 90-93% -Continue aggressive pulmonary toilet, incentive spirometry, Pep -Pulmonary medicine is consulted appreciate input -Patient has been unable to produce a sputum culture--> discontinue vancomycin and will continue Zosyn to complete a 7-day course -Day 3 of 7 A. fib with RVR -This is new for the patient -Plan is for cardioversion today -Limited echo is unchanged from previous echocardiogram -Unable to place on full anticoagulation given severe anemia and thrombocytopenia with marked hematuria and guaiac positive stool -Continue amiodarone per cardiology -Cardiology is following NSTEMI -Suspect NSTEMI type II given tachycardia and anemia on presentation although patient has several risk factors that place her at increased risk for coronary disease and type I NSTEMI -Peak troponin was 20,707 -Do anticipate the patient has significant coronary disease but we are unfortunately limited with care at this time given overall clinical picture -Had an echo in January that had a normal EF at 65% -Echo remained stable when compared to echo approximately 1 month ago -Unable to initiate antiplatelet therapy or anticoagulation so we will pursue medical therapy at this time and depending on her course consider further outpatient work-up -EKG shows some ST-T wave depression but is mild in the lateral/inferior leads but no ST elevation -This did resolve with improved heart rate control -Unable to start aspirin secondary to bleeding as noted above -Continue beta-scar -No ANTHONY inhibitor or ARB given renal function -Cardiology consultation is pending but anticipate medical management at this point given other comorbidities and risks Acute blood loss anemia -Patient is having both hematuria and is guaiac positive--> hematuria has improved -Urology is following for her hematuria--> Alexandre is in place and no need for continuous bladder irrigation -GI is following for her positive guaiac stool and is proposing EGD and colonoscopy when she is more medically stable in the future -Patient was transfused 3 units of packed red blood cells for hemoglobin of 5 on 02/16/2021 -Hemoglobin this a.m. is stable at 9.3 -Continue to monitor with CBC in a.m. -Likely multifactorial with thrombocytopenia which I suspect was related to consumption with bleeding as well as being on Eliquis 10 mg twice daily for an extended period of time in conjunction with EMANUEL -We will stop anticoagulation indefinitely Thrombocytopenia -Suspect consumption -With active bleeding patient was transfused 2 pack of platelets on 10/16/2020 -Platelet count is relatively stable -CBC in a.m. -Monitor closely Hematuria/hydronephrosis -Urology is following -Hematuria has improved -Maintain Alexandre until okay to remove from urology -Patient has stent in place -Continue Flomax Guaiac positive stool -GI is following and plans for EGD and colonoscopy in the future once patient is more medically stable inpatient versus outpatient -We will continue twice daily Protonix at this time with plans to switch to daily if no bleeding at discharge -If patient remains stable will convert to oral Protonix tomorrow Chronic left soleal DVT -First noted on ultrasound January 19, 2021 -Patient has had no propagation since that point time -Would recommend repeat ultrasound in 1 week and if no propagation likely okay to leave off anticoagulation and not proceed with IVC -If patient demonstrates propagation will need to consider IVC placement -Would not recommend reinitiation of anticoagulation with considerable bleeding at this time CKD stage IV -Baseline serum creatinine appears to be between 2.5 and 3 -Currently 2.44 -Continue Alexandre at this time and remove once okay with urology -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 -Follow-up with nephrology as an outpatient as long as patient remains stable Potential sepsis -With marked debilitation after recent extensive hospitalization related to Covid -Cultures are pending -Tinea broad-spectrum antibiotics at this time and if cultures are negative then will discontinue DM-2 uncontrolled -Patient with some hypoglycemia this morning therefore will discontinue Lantus at this time -Continue sliding scale -Monitor closely but proceed with caution given renal failure as patient will have delayed clearance of insulins -Accu-Cheks before meals and at bedtime -Carb controlled diet Hypertension/hyperlipidemia -Continue amlodipine, hydralazine and switch Coreg to metoprolol for heart rate control -Continue to monitor blood pressure -Continue statin GERD -Continue Protonix IV 40 mg twice daily DVT prophylaxis -Hold Eliquis given bleeding -SCD right lower extremity -Known clot in left lower extremity CODE STATUS -Full code -Palliative care did see the patient today and she seems somewhat interested in hospice as per discussion with the palliative care team. She likely would qualify for inpatient palliative care given her respiratory status. Palliative care team will address this further tomorrow. Charges/Coding Visit Charges Inpatient E&M: 38027 Subs Hosp L2
[2021-02-19] MEDS: Tamsulosin HCl 0.4 MG Capsule PO (16:58)
[2021-02-19] MEDS: Insulin Lispro 100 UNIT/ML INSULN.PEN SC (17:22)
[2021-02-19 17:25] LABS: Bedside Glucose 159 mg/dL (70-110)
--- NOTE | 2021-02-19 18:24 | NURSING ---
02/19/21 @ 1822- Report called and given to JOVANA Gonzalez.
--- NOTE | 2021-02-19 18:51 | NURSING ---
02/19/21 @ 1844- Patient taken down via bed to PCU room 118 in stable condition.
--- NOTE | 2021-02-19 20:11 | PCS.PANDOC ---
PANDEMIC DOCUMENTATION INITIATED: Date: 11/24/2020 Time: 190
[2021-02-19] MEDS: Atorvastatin Calcium 40 MG Tablet PO (21:47)
[2021-02-19] MEDS: hydrALAZINE 50 MG Tablet 100 MG PO (21:48)
[2021-02-19 21:50] LABS: Bedside Glucose 91 mg/dL (70-110)
[2021-02-20] VITALS (25 sets, daily range): BP systolic 100–132; BP diastolic 49–65; PULSE 58–82; RESP 17–27; TEMP 36.4–36.8; O2SAT 92–97
[2021-02-20] MEDS: guaiFENesin 10 ML UDC (200MG/10ML) 20 ML PO ×2 (01:40→22:40)
[2021-02-20 01:46] LABS: Bedside Glucose 112 mg/dL (70-110)
[2021-02-20] MEDS: Ondansetron 4 MG/2 ML Vial IV (02:50)
--- NOTE | 2021-02-20 05:55 | EKG12_ITS ---
Test Reason : AM EKG Blood Pressure : / mmHG Vent. Rate : 063 BPM Atrial Rate : 063 BPM P-R Int : 162 ms QRS Dur : 140 ms QT Int : 532 ms P-R-T Axes : 068 -09 -82 degrees QTc Int : 544 ms Normal sinus rhythm Right bundle branch block Abnormal ECG Confirmed by GILBERT ROWELL, BOB ([id number]), desk editor GULSHAN TRAYLOR ([id number]) on 02/23/2021 10:39:07 AM Referred By: DR CURIEL Confirmed By:BOB HUNT MD
[2021-02-20 06:36] LABS: Bedside Glucose 115 mg/dL (70-110)
[2021-02-20 06:56] LABS: Absolute Lymphocyte Count 0.61 X10^3/uL (0.83-4.51); Absolute Neutrophil Count 6.2 X10^3/uL (2.0-7.7); Basophil# 0.01 X10^3/uL; Basophil% 0.1 % (0-1); Eosinophil# 0.09 X10^3/uL; Eosinophils% 1.2 % (0-5); Hemoglobin 9.7 g/dL (12.0-15.0); Lymphocyte # 0.61 X10^3/ul (0.83-4.51); Lymphocyte % 8.2 % (19-41); Mean Corp Hgb Conc 32.3 g/dL (32-36); Mean Corpuscular Hgb 29.7 pg (27.0-32.0); Mean Corpuscular Volume 91.7 fL (81-99); Mean Platelet Vol. 12.4 fl (6.2-12.0); Monocyte# 0.45 X10^3/uL; NRBC Flagged by Analyzer 1.1 % (0-5); Neutrophil # 6.17 X10^3/uL (2.7-7.7); Neutrophil % 82.8 % (47-70); POSITIVE COUNT YES; Platelet Count 69 K/mm3 (150-450); RBC Distribution Width CV 14.6 % (11.6-14.6); RBC Distribution Width SD 49.1 fl (35.1-43.9); Red Blood Count 3.27 M/mm3 (4.2-5.4); White Blood Count 7.5 K/mm3 (4.4-11.0)
[2021-02-20 07:00] LABS: Differential Indicated SCAN CRITERIA MET
[2021-02-20 07:19] LABS: Anion Gap 12 (5-15); BUN 38 mg/dL (7-18); BUN/Creat Ratio 13.7 RATIO (10-20); Calcium,Total 7.2 mg/dL (8.5-10.1); Chloride 110 mmol/L (98-107); Creatinine, Serum 2.78 mg/dL (0.55-1.02); EST Glomerular Filtration Rate 18 mL/min (>60); Est Glom Filt Rate - Afr Amer 21 mL/min (>60); Glucose 118 mg/dL (74-106); Sodium Level 136 mmol/L (136-145)
[2021-02-20] MEDS: Ipratropium/Albuterol Sulfate 3 ML AMPUL.NEB INHALATION ×3 (07:28→19:51)
--- NOTE | 2021-02-20 07:53 | PCM.PN.INT ---
Assessment & Plan Assessment/Plan (1) Acute blood loss anemia: (2) Hematuria: (3) Acute respiratory failure with hypoxia: (4) Thrombocytopenia: (5) Hyperglycemia: PLAN: RECOMMENDATIONS: 1. Lasix as needed to help with euvolemia. Hold Lasix given renal function 2. Aggressive pulmonary toileting. Needs to get out of bed 3. Defer to GI and urology for blood loss 4. Possibly okay to discontinue empiric antibiotics given negative cultures 5. Keep platelets above 50,000 while actively having hematuria 6. Continue Lantus given hyperglycemia 7. Defer to cardiology on transitioning to p.o. amiodarone IMPRESSIONS: 1. Acute on chronic hypoxic respiratory failure secondary to acute on chronic CHF Patient presented with thrombocytopenia and anemia, likely secondary to GI/ sources. Patient received significant volume related to blood products. Patient appeared to have responded to BiPAP until diuretics could take effect. Continue with aggressive pulmonary toileting. We will continue diuretics as necessary to help with respiratory status. This is complicated by a recent COVID-19 hospitalization. Patient slightly up on her oxygen requirements, but this is likely secondary to decreased mobility. Patient needs aggressive pulmonary toileting and out of bed as tolerated. 2. Potential sepsis in the setting of acute blood loss anemia secondary to ureter bleeding Patient significantly debilitated given recent protracted hospitalization. Patient does have ureteral stents with hematuria, so bacteremia is possible. Cultures have been sent. Likely okay to discontinue antibiotics. Patient has remained hemodynamically stable, but hydralazine has been held. Okay to continue with Coreg for now. Bleeding is resolved 3. Uncontrolled diabetes mellitus type 2 Unclear if patient has an increased endogenous steroid production leading to hyperglycemia. Patient is not on steroids at this time. Lantus was discontinued secondary to some episodes of hypoglycemia. Continue with sliding scale. 4. Debilitated/advanced age/recent DVT/thrombocytopenia Complicates care, management, recovery and prognosis. 5. A. fib with RVR?new onset Resolved. Patient has remained in normal sinus rhythm. Defer to cardiology on transition to p.o. amiodarone. Subjective Subjective Patient did well overnight. Patient has remained in normal sinus rhythm following cardioversion. Patient reports global achiness and decreased sleep overnight. Objective Data Objective Data Vital Signs: Vital Signs Temp Pulse Resp BP Pulse Ox 36.6 C 59 L 22 H 119/58 L 97 02/20/21 04:00 02/20/21 07:00 02/20/21 07:00 02/20/21 07:00 02/20/21 07:00 Oxygen Flow Rate (L/min) 8 Oxygen Delivery Method Nasal Cannula Weight: 60.4 kg Body Mass Index (BMI) 23.1 Intake & Output: Intake and Output for Last 24 Hours 02/18/21 02/19/21 02/20/21 23:59 23:59 23:59 Intake Total 2335 / 2335 2252.97 / 2252.97 183.19 / 183.19 Output Total 800 / 800 490 / 490 100 / 100 Balance 1535 / 1535 1762.97 / 1762.97 83.19 / 83.19 Medical Nutrition Assessment Dietitian: Malnutrition Criteria Met Start: 02/16/21 15:42 Freq: Status: Active Protocol: Document 02/17/21 10:47 AG (Rec: 02/17/21 10:47 AG [id number]) Nutrition Malnutrition Evidence of Malnutrition Exists Yes Malnutrition (severe): Acute Illness/Injury Evidenced By Suboptimal Energy Intake ( Severe),Weight Loss (Severe) Clinical Problem Acute Disease or Injury Related Malnutrition Etiology Severe protein-calorie malnutrition in the context of acute illness related to inadequate oral intake d/t COVID Signs/Symptoms as evidenced by 11#/8% wt loss x 1 month and PO meeting less than 50% estimated nutrition needs x 1 month 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 Dietitian Recommendations/Changes Continue Carbohydrate- Controlled diet (no caloric/ cardiac diet restriction) d/t malnutrition; Will continue 240ml glucerna shake w/ breakfast and ensure pudding BID with lunch/dinner. Will adjust ONS to optimize intake and prevent further wt loss. Lab / Micro Data Result Diagrams: 02/20/21 06:35 02/20/21 06:35 Labs: Laboratory Results - last 24 hr 02/16/21 04:00: Heparin-induced Plt Ab 0.096 02/19/21 09:24: POC Glucose 38 L* 02/19/21 10:00: POC Glucose 196 H 02/19/21 11:47: POC Glucose 145 H 02/19/21 17:21: POC Glucose 159 H 02/19/21 21:43: POC Glucose 91 02/20/21 01:38: POC Glucose 112 H 02/20/21 06:31: POC Glucose 115 H 02/20/21 06:35: WBC 7.5, RBC 3.27 L, Hgb 9.7 L, Hct 30.0 L, MCV 91.7, MCH 29.7, MCHC 32.3, RDW Std Deviation 49.1 H, RDW Coeff of Wade 14.6, Plt Count 69 L, MPV 12.4 H, Immature Gran % (Auto) 1.700 H, Neut % (Auto) 82.8 H, Lymph % (Auto) 8.2 L, [place] % (Auto) 6.0, Eos % (Auto) 1.2, Baso % (Auto) 0.1, Absolute Neuts (auto) 6.2, Absolute Lymphs (auto) 0.61 L, Nucleated RBC % 1.1 02/20/21 06:35: Sodium 136, Potassium 4.0, Chloride 110 H, Carbon Dioxide 14.0 L, Anion Gap 12, BUN 38 H, Creatinine 2.78 H, Estim Creat Clear Calc 13.60, Est GFR (MDRD) Af Amer 21 L, Est GFR (MDRD) Non-Af 18 L, BUN/Creatinine Ratio 13.7, Glucose 118 H, Calcium 7.2 L Micro: Microbiology 02/16/21 17:00 Blood Culture (Wb) - Anticubital Left Blood Culture - Preliminary No growth in 48 hours. 02/16/21 09:25 Urine Catheter - Alexandre Urine Culture - Final Culture exhibits no growth. 02/16/21 04:00 Blood Culture (Wb) - Other Blood Culture - Preliminary No growth in 48 hours. 02/16/21 20:35 Stool Stool Occult Blood (TANIYA) - Final Occult Blood Positive 02/16/21 09:25 Urine, Clean Catch Legionella Antigen - Final 02/16/21 09:25 Urine, Clean Catch Streptococcus pneumoniae Antigen (M - Final Physical Exam Const alert and no apparent distress Constitutional Narrative: Conversational and interactive. General Appearance: cooperative and comfortable HEENT normocephalic Eyes EOMs intact bilaterally Eyes Narrative: No icterus Neck no lymphadenopathy Neck Narrative: Right IJ triple-lumen catheter. Chest inspection of chest normal Chest: symmetrical chest wall rise; Negative for crepitus Resp normal respiratory effort Auscultation: rhonchi, wheezes and diminished lung sounds; Negative for rales Cardio regular rate, regular rhythm, S1 normal heart sound and S2 normal heart sound GI normal to inspection, nondistended, normoactive bowel sounds, soft to palpation, non-tender and non-distended Narrative: Improved hematuria, but some clots still noted. Extremity Extremity Narrative: No edema. General Extremity: clubbing; Negative for cyanosis or edema Skin Skin Narrative: Improving bruising in her neck from triple-lumen catheter as well as in her groin. These do not appear to be expanding Neuro Neuro Narrative: Moves all extremities spontaneously. Right facial droop noted Sensorium / Orientation: alert Charges/Coding Visit Charges Inpatient E&M: 23226 Subs Hosp L3
--- NOTE | 2021-02-20 09:44 | PN.CARD_ITS ---
Subjective Subjective The patient is awake and alert. She denies any ongoing symptoms of chest discomfort, worsening shortness of breath, or obvious palpitations. Objective Data Vital Signs: Vital Signs Temp Pulse Resp BP Pulse Ox 97.5 F L 61 27 H 132/60 H 96 02/20/21 08:00 02/20/21 08:00 02/20/21 08:00 02/20/21 08:00 02/20/21 08:00 Oxygen Flow Rate (L/min) 5 Oxygen Delivery Method Nasal Cannula Weight: 133 lb 2.547 oz Body Mass Index (BMI) 23.1 Intake & Output: Intake and Output for Last 24 Hours 02/18/21 02/19/21 02/20/21 23:59 23:59 23:59 Intake Total 2335 / 2335 2252.97 / 2252.97 199.89 / 199.89 Output Total 800 / 800 490 / 490 100 / 100 Balance 1535 / 1535 1762.97 / 1762.97 99.89 / 99.89 Lab / Micro Data Result Diagrams: 02/20/21 06:35 02/20/21 06:35 Labs: Laboratory Results - last 24 hr 02/16/21 04:00: Heparin-induced Plt Ab 0.096 02/19/21 09:24: POC Glucose 38 L* 02/19/21 10:00: POC Glucose 196 H 02/19/21 11:47: POC Glucose 145 H 02/19/21 17:21: POC Glucose 159 H 02/19/21 21:43: POC Glucose 91 02/20/21 01:38: POC Glucose 112 H 02/20/21 06:31: POC Glucose 115 H 02/20/21 06:35: WBC 7.5, RBC 3.27 L, Hgb 9.7 L, Hct 30.0 L, MCV 91.7, MCH 29.7, MCHC 32.3, RDW Std Deviation 49.1 H, RDW Coeff of Wade 14.6, Plt Count 69 L, MPV 12.4 H, Immature Gran % (Auto) 1.700 H, Neut % (Auto) 82.8 H, Lymph % (Auto) 8.2 L, [place] % (Auto) 6.0, Eos % (Auto) 1.2, Baso % (Auto) 0.1, Absolute Neuts (auto) 6.2, Absolute Lymphs (auto) 0.61 L, Nucleated RBC % 1.1 02/20/21 06:35: Sodium 136, Potassium 4.0, Chloride 110 H, Carbon Dioxide 14.0 L , Anion Gap 12, BUN 38 H, Creatinine 2.78 H, Estim Creat Clear Calc 13.60, Est GFR (MDRD) Af Amer 21 L, Est GFR (MDRD) Non-Af 18 L, BUN/Creatinine Ratio 13.7, Glucose 118 H, Calcium 7.2 L Micro: Microbiology 02/16/21 17:00 Blood Culture (Wb) - Anticubital Left Blood Culture - Preliminary No growth in 48 hours. Cardiology Labs/Tests 02/20/21 06:35: WBC 7.5, RBC 3.27 L, Hgb 9.7 L, Hct 30.0 L, MCV 91.7, MCH 29.7, MCHC 32.3, Plt Count 69 L, MPV 12.4 H, Immature Gran % (Auto) 1.700 H, Neut % (Auto) 82.8 H, Lymph % (Auto) 8.2 L, [place] % (Auto) 6.0, Eos % (Auto) 1.2, Baso % (Auto) 0.1, Absolute Neuts (auto) 6.2, Nucleated RBC % 1.1 02/20/21 06:35: Sodium 136, Potassium 4.0, Chloride 110 H, Carbon Dioxide 14.0 L , Anion Gap 12, BUN 38 H, Creatinine 2.78 H, Est GFR (MDRD) Af Amer 21 L, Est GFR (MDRD) Non-Af 18 L, BUN/Creatinine Ratio 13.7, Glucose 118 H, Calcium 7.2 L Rhythm: Sinus rhythm Electrocardiogram: Sinus rhythm; right bundle branch block Physical Exam Narrative This is a pale appearing older than stated age appearing 75-year-old white female. Const alert and oriented x3 Orientation / Consciousness: awake HEENT normocephalic, head/scalp atraumatic and hearing grossly normal bilaterally Eyes PERRL, EOMs intact bilaterally and conjunctivae normal Neck full ROM, supple and no JVD Resp Auscultation: rhonchi Cardio Rate: regular rate Rhythm: regular rhythm Heart Sounds: S1 normal and S2 normal GI normal to inspection, nondistended, normoactive bowel sounds Extremity no pedal edema Skin no rashes or lesions noted Neuro oriented x3, moves all extremities, no focal motor deficits and no sensory deficits noted Psych cooperative Assessment & Plan Assessment/Plan (1) Abnormal cardiac enzyme level: PLAN: The patient does have abnormal troponin I levels. It appears she has had abnormal troponin I levels in the past. At the present time her troponin I levels raise concern as to whether or not she truly has a type I non-STEMI versus a type II non-STEMI secondary to supply demand mismatch being brought out by her multiple noncardiovascular issues such as her underlying pulmonary disease issues and infectious disease related issues superimposed upon the additional finding of atrial fibrillation. At the moment she does not complain of classic symptoms of an acute coronary syndrome event. Her ECG does not demonstrate any acute changes other than her atrial fibrillation. Her echocardiogram is as noted. At the moment her cardiac enzymes and her cardiac rhythm can be followed. She can be treated for the possibility of underlying cardiovascular disease with respect to CAD. Ideally this would include agents such as aspirin, antiplatelets, and anticoagulants, however, she is not a candidate for these at this time secondary to concerns of her ongoing acute blood loss related issues requiring PRBC transfusions. She can also be treated with medicine such as nitrates as needed, beta-blockers (if her blood pressure tolerates), afterload reducing agents (if her blood pressure tolerates), and lipid-lowering agents. She does not appear to be an ideal candidate for additional noninvasive or invasive cardiovascular studies at this time secondary to her multiple noncardiac comorbidities and issues. (2) Atrial fibrillation: PLAN: The patient underwent medication adjustment with IV amiodarone. She subsequently underwent synchronized biphasic DC cardioversion and regain sinus rhythm. At the present time her IV amiodarone will be changed to oral amiodarone therapy. Her rate and rhythm will be followed. Again she is not an ideal candidate for anticoagulant therapy based upon her underlying hematologic and hemorrhagic issues. (3) Acute blood loss anemia: PLAN: She has been evaluated. She has received PRBCs. To be reasonable to try and keep her hemoglobin elevated to maximize her oxygen carrying capacity. (4) Thrombocytopenia: PLAN: Her thrombocytopenia also presents issues with respect to antiplatelet and anticoagulant therapy. (5) DVT (deep venous thrombosis): PLAN: Again she is not an ideal candidate for long-term oral anticoagulant therapy at this time. He is being followed by internal medicine for this issue. (6) Acute and chronic respiratory failure with hypoxia: PLAN: She does have what appears to be acute on chronic respiratory related issues thought secondary to her history of COVID-19 pneumonia. She continues to be followed by internal medicine and pulmonology/critical care medicine. (7) Sepsis: QUALIFIERS: Sepsis type: sepsis due to unspecified organism Sepsis acute organ dysfunction status: with acute organ dysfunction Severe sepsis acute organ dysfunction type: encephalopathy Severe sepsis shock status: without septic shock Qualified Code(s): A41.9 - Sepsis, unspecified organism; R65.20 - Severe sepsis without septic shock; G93.40 - Encephalopathy, unspecified PLAN: There is concern of underlying sepsis which could trigger her abnormal cardiac enzymes and her atrial dysrhythmia. She is continuing medical therapy for such. (8) Pneumonia: QUALIFIERS: Pneumonia type: due to unspecified organism Laterality: unspecified laterality Lung location: unspecified part of lung Qualified Code(s): J18.9 - Pneumonia, unspecified organism PLAN: Again she is being evaluated by internal medicine and pulmonology and critical care medicine for concerns of her underlying recent COVID-19 pneumonia and other infectious disease related issues requiring medical management. Again her pneumonia may be a triggering event for her atrial dysrhythmia. (9) HLD (hyperlipidemia): PLAN: She can continue lipid-lowering therapy as deemed appropriate. (10) Benign essential HTN: PLAN: Her blood pressure can be followed and taken into consideration with her medications. Addt'l Comments This note was generated using a voice recognition system and there may be incorrect words, spelling or punctuation that were not noted when reviewing the office note prior to saving.
[2021-02-20] MEDS: guaiFENesin 1,200 MG Tablet 1200 MG PO ×2 (10:15→21:12)
[2021-02-20] MEDS: amLODIPine 10 MG Tablet PO (10:16)
[2021-02-20] MEDS: Docusate Sodium 100 MG Capsule PO (10:16)
[2021-02-20] MEDS: Metoprolol Tartrate 25 MG Tablet PO ×2 (10:17→21:11)
--- NOTE | 2021-02-20 11:33 | PCM.PN.PAL ---
Subjective Subjective Patient requiring 8 L of oxygen supplementation this morning, up from her 6 L yesterday. She is now requiring 5 L of oxygen.. Vitals have remained stable. She remains in a sinus rhythm. Patient reports she feels no different than yesterday. She is still coughing, short of breath, tachypneic. She is not really wanting to talk today, nods her head/shakes her head to answer questions. She has very coarse lungs, can hear the congestion without auscultation. She feels short of breath and is still tachypneic, same as yesterday. When asking Alicia if she is upset, she nods yes. She is overwhelmed and does not know what to do. I did discuss at length different CODE STATUS is and what they all entail. She seemed to understand but would not repeat back what she heard to me. She is still wanting to be a full code, shrugs her shoulders when asked if she would want to further evaluate her CODE STATUS. When asked if she would like to go to the [facility] for symptom control, she said yes, however explained to her this is hospice only. Objective Data Objective Data Vital Signs: Vital Signs Temp Pulse Resp BP Pulse Ox 97.5 F L 64 20 H 128/61 H 92 02/20/21 08:00 02/20/21 10:17 02/20/21 10:14 02/20/21 10:14 02/20/21 10:14 Oxygen Flow Rate (L/min) 5 Oxygen Delivery Method Nasal Cannula Weight: 60.4 kg Body Mass Index (BMI) 23.1 Intake & Output: Intake and Output for Last 24 Hours 02/18/21 02/19/21 02/20/21 23:59 23:59 23:59 Intake Total 2335 / 2335 2252.97 / 2252.97 237.19 / 237.19 Output Total 800 / 800 490 / 490 100 / 100 Balance 1535 / 1535 1762.97 / 1762.97 137.19 / 137.19 Medical Nutrition Assessment Dietitian: Malnutrition Criteria Met Start: 02/16/21 15:42 Freq: Status: Active Protocol: Document 02/17/21 10:47 AG (Rec: 02/17/21 10:47 AG [id number]) Nutrition Malnutrition Evidence of Malnutrition Exists Yes Malnutrition (severe): Acute Illness/Injury Evidenced By Suboptimal Energy Intake ( Severe),Weight Loss (Severe) Clinical Problem Acute Disease or Injury Related Malnutrition Etiology Severe protein-calorie malnutrition in the context of acute illness related to inadequate oral intake d/t COVID Signs/Symptoms as evidenced by 11#/8% wt loss x 1 month and PO meeting less than 50% estimated nutrition needs x 1 month 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 Dietitian Recommendations/Changes Continue Carbohydrate- Controlled diet (no caloric/ cardiac diet restriction) d/t malnutrition; Will continue 240ml glucerna shake w/ breakfast and ensure pudding BID with lunch/dinner. Will adjust ONS to optimize intake and prevent further wt loss. Lab / Micro Data Result Diagrams: 02/20/21 06:35 02/20/21 06:35 Labs: Laboratory Results - last 24 hr 02/16/21 04:00: Heparin-induced Plt Ab 0.096 02/19/21 11:47: POC Glucose 145 H 02/19/21 17:21: POC Glucose 159 H 02/19/21 21:43: POC Glucose 91 02/20/21 01:38: POC Glucose 112 H 02/20/21 06:31: POC Glucose 115 H 02/20/21 06:35: WBC 7.5, RBC 3.27 L, Hgb 9.7 L, Hct 30.0 L, MCV 91.7, MCH 29.7, MCHC 32.3, RDW Std Deviation 49.1 H, RDW Coeff of Wade 14.6, Plt Count 69 L, MPV 12.4 H, Immature Gran % (Auto) 1.700 H, Neut % (Auto) 82.8 H, Lymph % (Auto) 8.2 L, [place] % (Auto) 6.0, Eos % (Auto) 1.2, Baso % (Auto) 0.1, Absolute Neuts (auto) 6.2, Absolute Lymphs (auto) 0.61 L, Nucleated RBC % 1.1 02/20/21 06:35: Sodium 136, Potassium 4.0, Chloride 110 H, Carbon Dioxide 14.0 L, Anion Gap 12, BUN 38 H, Creatinine 2.78 H, Estim Creat Clear Calc 13.60, Est GFR (MDRD) Af Amer 21 L, Est GFR (MDRD) Non-Af 18 L, BUN/Creatinine Ratio 13.7, Glucose 118 H, Calcium 7.2 L Micro: Microbiology 02/16/21 17:00 Blood Culture (Wb) - Anticubital Left Blood Culture - Preliminary No growth in 48 hours. 02/16/21 09:25 Urine Catheter - Alexandre Urine Culture - Final Culture exhibits no growth. 02/16/21 04:00 Blood Culture (Wb) - Other Blood Culture - Preliminary No growth in 48 hours. 02/16/21 20:35 Stool Stool Occult Blood (TANIYA) - Final Occult Blood Positive 02/16/21 09:25 Urine, Clean Catch Legionella Antigen - Final 02/16/21 09:25 Urine, Clean Catch Streptococcus pneumoniae Antigen (M - Final Physical Exam Const alert General Appearance: cooperative HEENT normocephalic and head/scalp atraumatic Neck supple Resp Effort and Inspection: symmetric chest movement, tachypneic, uses accessory muscles and audible wheezes Auscultation: rales, rhonchi, wheezes and diminished lung sounds Cardio regular rate, regular rhythm, S1 normal heart sound and S2 normal heart sound GI normal to inspection, nondistended, normoactive bowel sounds Extremity General Extremity: Negative for clubbing or cyanosis Skin Skin Narrative: pale General Skin Exam: ecchymosis Neuro oriented x3, moves all extremities and no focal motor deficits Psych cooperative Activity / Motor Behavior: appropriate eye contact Thought Content: No hallucination(s) Insight: limited and other wants to talk more about finding her a house so she can have her dog back rather than her serious medical conditions. Assessment & Plan Assessment/Plan (1) Debility: (2) Shortness of breath: (3) Acute blood loss anemia: (4) Sepsis: QUALIFIERS: Sepsis type: sepsis due to unspecified organism Sepsis acute organ dysfunction status: with acute organ dysfunction Severe sepsis acute organ dysfunction type: encephalopathy Severe sepsis shock status: without septic shock Qualified Code(s): A41.9 - Sepsis, unspecified organism; R65.20 - Severe sepsis without septic shock; G93.40 - Encephalopathy, unspecified (5) Hematuria: (6) Acute and chronic respiratory failure with hypoxia: (7) DVT (deep venous thrombosis): (8) Atrial fibrillation: (9) Pneumonia: QUALIFIERS: Pneumonia type: due to unspecified organism Laterality: unspecified laterality Lung location: unspecified part of lung Qualified Code(s): J18.9 - Pneumonia, unspecified organism PLAN: 75-year-old female with multiple complex comorbidities, seen today for initial palliative care consultation for symptom management of shortness of breath, weakness, and various other complaints. Consents were signed for palliative prior to hospitalization. 1. Weakness and debility: Significant given her multiple hospital admissions and ECF stays in the past several months. She seems quite debilitated. Suspect she will need ECF placement. I do not see her doing well overall. Remains a full code. We discussed this as well, she does not appear to grasp the concept of the different CODE STATUS. 02/19: Again discussed different CODE STATUS, she just still does not seem to comprehend and wants chest compressions if her heart stops. However, she wants to go to the [facility], but discussed cannot be a full code to do so. Discussed symptom management, she is currently just nodding her head to questions and is not verbalizing. For now, supportive care and enrolled in palliative, would still strongly recommend hospice. 2. Shortness of breath: Multifactorial, currently on 6 L and appears quite dyspneic/tachypneic, which according to staff has been consistent t/o her stay. Had a cardioversion this morning for A. fib RVR. She has some coarse wheezing. Scheduled Duonebs and PRN albuterol. I would not prescribe any medications for her shortness of breath such as Ativan or Roxanol due to risk of respiratory depression, however if she is agreeable to hospice, would recommend sending her to the [facility] for symptom management. Discussed hospice and palliative services. Her main concern is finding a home so she can get her dog back. She deflects when talking about her serious health condition and probable limited life expectancy. Adds that she has limited reading and writing ability. She is agreeable to a liaison visit to further discuss hospice as I think that is more appropriate than palliative, we will need to accommodate and review information with her since she has limited reading ability. If the patient is discharged from the hospital, she should be seen by palliative for follow-up SAIRA, we will arrange that. Obviously she is high risk for readmission to the hospital. 02/19: unchanged. Still tachypneic, coughing, SOB at rest. 3. Acute blood loss anemia/hematuria/hydronephrosis/acute on chronic hypoxemic respiratory failure/current DVT/atrial fibrillation/HTN/recent COVID-19 infection/pneumonia: Complicates overall care, management, recovery, and prognosis. Again, patient has a life expectancy of less than 6 months, I would better estimate less than 6 weeks. She really should be discharged to an extended care facility if not hospice/[facility]. She cannot care for herself at home. It is unclear if she even has a place to stay. She has a son and daughter, but reports they do not help much. Thank you for the opportunity to participate in this patient's care, please do not hesitate to contact [facility] with any further questions or concerns. Palliative direct line is [phone]. Greater than 50% of F2F visit dedicated to education and counseling of palliative care services, medications, comorbid conditions and potential assistance with management, documentation regarding the above, discussing case with hospitalist, and plan of care moving forward. Start time: 1240 End time: 1304
[2021-02-20 12:31] LABS: Allen Test Positive; Base Excess -10 mmol/L (-2 to +2); Bicarbonate 16.6 mmol/L (22-26); Blood Gas Specimen Type ART; O2 Delivery Device Cannula; PO2 65 mmHG (75-100); SITE L Radial; SO2 90 % (95-99); Total Carbon Dioxide 18 mmol/L; pCO2 35.3 mmHg (35-45); pH 7.28 (7.35-7.45)
--- NOTE | 2021-02-20 14:18 | CASEMGMT ---
SARAH faxed updated clinicals to [facility]. Palliative did talk with patient yesterday and today about Hospice as she is more Hospice appropriate. Patient is not in agreement. Therefore at this time it appears the plan will be to return to [facility] at d/c. Yaneli [email or web address]
--- NOTE | 2021-02-20 14:25 | PCM.PN.HOSP ---
Subjective Subjective Patient is sitting up in bed watching television eating breakfast. She asked me for milk for her coffee and we did facilitate this. We had an extensive discussion regarding her health issues and her overall prognosis. Options were given to continue what were doing and pursue intermediate placement at discharge or to potentially consider hospice at this time at home versus inpatient hospice giving her support. I did make it clear to her that is most likely she has 6 months or less to live. She agrees that she is unable to care for herself at home and has multiple medical issues. Objective Data Objective Data Vital Signs: Vital Signs Temp Pulse Resp BP Pulse Ox 97.5 F L 58 L 20 H 128/61 H 92 02/20/21 08:00 02/20/21 12:26 02/20/21 11:09 02/20/21 10:14 02/20/21 10:14 Oxygen Flow Rate (L/min) 5 Oxygen Delivery Method Nasal Cannula Weight: 60.4 kg Body Mass Index (BMI) 23.1 Intake & Output: Intake and Output for Last 24 Hours 02/18/21 02/19/21 02/20/21 23:59 23:59 23:59 Intake Total 2335 / 2335 2252.97 / 2252.97 347.19 / 347.19 Output Total 800 / 800 490 / 490 100 / 100 Balance 1535 / 1535 1762.97 / 1762.97 247.19 / 247.19 Medical Nutrition Assessment Dietitian: Malnutrition Criteria Met Start: 02/16/21 15:42 Freq: Status: Active Protocol: Document 02/17/21 10:47 AG (Rec: 02/17/21 10:47 AG [id number]) Nutrition Malnutrition Evidence of Malnutrition Exists Yes Malnutrition (severe): Acute Illness/Injury Evidenced By Suboptimal Energy Intake ( Severe),Weight Loss (Severe) Clinical Problem Acute Disease or Injury Related Malnutrition Etiology Severe protein-calorie malnutrition in the context of acute illness related to inadequate oral intake d/t COVID Signs/Symptoms as evidenced by 11#/8% wt loss x 1 month and PO meeting less than 50% estimated nutrition needs x 1 month 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 Dietitian Recommendations/Changes Continue Carbohydrate- Controlled diet (no caloric/ cardiac diet restriction) d/t malnutrition; Will continue 240ml glucerna shake w/ breakfast and ensure pudding BID with lunch/dinner. Will adjust ONS to optimize intake and prevent further wt loss. Lab / Micro Data Result Diagrams: 02/20/21 06:35 02/20/21 06:35 Labs: Laboratory Results - last 24 hr 02/16/21 04:00: Heparin-induced Plt Ab 0.096 02/19/21 17:21: POC Glucose 159 H 02/19/21 21:43: POC Glucose 91 02/20/21 01:38: POC Glucose 112 H 02/20/21 06:31: POC Glucose 115 H 02/20/21 06:35: WBC 7.5, RBC 3.27 L, Hgb 9.7 L, Hct 30.0 L, MCV 91.7, MCH 29.7, MCHC 32.3, RDW Std Deviation 49.1 H, RDW Coeff of Wade 14.6, Plt Count 69 L, MPV 12.4 H, Immature Gran % (Auto) 1.700 H, Neut % (Auto) 82.8 H, Lymph % (Auto) 8.2 L, [place] % (Auto) 6.0, Eos % (Auto) 1.2, Baso % (Auto) 0.1, Absolute Neuts (auto) 6.2, Absolute Lymphs (auto) 0.61 L, Nucleated RBC % 1.1 02/20/21 06:35: Sodium 136, Potassium 4.0, Chloride 110 H, Carbon Dioxide 14.0 L, Anion Gap 12, BUN 38 H, Creatinine 2.78 H, Estim Creat Clear Calc 13.60, Est GFR (MDRD) Af Amer 21 L, Est GFR (MDRD) Non-Af 18 L, BUN/Creatinine Ratio 13.7, Glucose 118 H, Calcium 7.2 L Micro: Microbiology 02/16/21 17:00 Blood Culture (Wb) - Anticubital Left Blood Culture - Preliminary No growth in 48 hours. 02/16/21 09:25 Urine Catheter - Alexandre Urine Culture - Final Culture exhibits no growth. 02/16/21 04:00 Blood Culture (Wb) - Other Blood Culture - Preliminary No growth in 48 hours. 02/16/21 20:35 Stool Stool Occult Blood (TANIYA) - Final Occult Blood Positive 02/16/21 09:25 Urine, Clean Catch Legionella Antigen - Final 02/16/21 09:25 Urine, Clean Catch Streptococcus pneumoniae Antigen (M - Final ABG Data ABG results: ABG 02/20/21 12:25 Specimen Type ART Sample Site L Radial pH 7.28 L Bicarbonate Actual 16.6 L Total CO2 18 Base Excess -10 L O2 Saturation 90 L ABG pCO2 35.3 ABG pO2 65 L Michael Test Positive O2 Delivery Device Cannula Liter Flow 5.0 Physical Exam Const alert, oriented x3, no apparent distress and average body habitus Constitutional Narrative: Elderly white female lying in bed, watching television and eating breakfast, appears comfortable but is significantly tachypneic, nontoxic Orientation / Consciousness: confused Exam Limitations: other limitations HEENT normocephalic, head/scalp atraumatic and moist oral mucous membranes Head and Scalp: normocephalic Eyes Eyes Narrative: No icterus, conjunctival pallor bilaterally Neck Neck Narrative: Right IJ in place with surrounding ecchymosis Resp normal respiratory effort, no retractions and no use of accessory muscles Resp Narrative: Scattered rhonchi and coarse cough, scattered wheezes and diffusely diminished, patient is tachypneic at rest and has intermittent rhonchorous coughing but the cough is extremely weak Auscultation: rhonchi and wheezes; Negative for crackles or rales Cardio regular rate, regular rhythm, S1 normal heart sound, S2 normal heart sound, no murmurs, no rub, no gallops, no clicks and no JVD GI normal to inspection, nondistended, normoactive bowel sounds, soft to palpation, non-tender and non-distended Extremity Extremity Narrative: Clubbing present, no cyanosis or edema Peripheral Pulses: Yes pulses 2+ throughout Skin no rashes or lesions noted, no wounds, skin turgor normal, no jaundice, no petechiae and no mottling Skin Narrative: Ecchymosis surrounding her triple-lumen catheter in the right neck Neuro oriented x3, moves all extremities and no focal motor deficits Neuro Narrative: Marked generalized weakness but no focal deficits, speech is clear Sensorium / Orientation: awake and alert Speech: speech normal Psych Psych Narrative: It was more interested in conversation with regards to her care today but not wholly receptive Assessment & Plan Assessment/Plan (1) Acute and chronic respiratory failure with hypoxia: (2) Hydronephrosis: (3) Hematuria: (4) Acute blood loss anemia: (5) Thrombocytopenia: (6) DVT (deep venous thrombosis): PLAN: Acute on chronic hypoxic respiratory failure secondary to recent COVID-19 infection -Patient without history of heart failure -Echo done recently on 01/21/2021 shows an EF of 60% and a normal LV without diastolic dysfunction -It is conceivable that the patient could have pulmonary hypertension secondary to her chronic lung issues with recent Covid infection and her respiratory issues with transfusion are related to this -She had been weaned to 4 L nasal cannula with an SPO2 in the low 90-93% but is now back up to 5 L with an SPO2 of 92 to 96% -Continue aggressive pulmonary toilet, incentive spirometry, Pep--> patient is somewhat noncompliant with this -Pulmonary medicine is consulted appreciate input -Patient has been unable to produce a sputum culture--> discontinue vancomycin and will continue Zosyn to complete a 7-day course -Day 4 of 7 A. fib with RVR -This is new for the patient -Resolved and has maintained sinus rhythm status post cardioversion -Limited echo is unchanged from previous echocardiogram -Unable to place on full anticoagulation given severe anemia and thrombocytopenia with marked hematuria and guaiac positive stool -Continue amiodarone per cardiology -Cardiology is following-appreciate input NSTEMI -Suspect NSTEMI type II given tachycardia and anemia on presentation although patient has several risk factors that place her at increased risk for coronary disease and type I NSTEMI -Peak troponin was 20,707 -Do anticipate the patient has significant coronary disease but we are unfortunately limited with care at this time given overall clinical picture -Had an echo in January that had a normal EF at 65% -Echo remained stable when compared to echo approximately 1 month ago -Unable to initiate antiplatelet therapy or anticoagulation so we will pursue medical therapy at this time and depending on her course consider further outpatient work-up -EKG shows some ST-T wave depression but is mild in the lateral/inferior leads but no ST elevation -This did resolve with improved heart rate control -Unable to start aspirin secondary to bleeding as noted above -Continue beta-scar -No ANTHONY inhibitor or ARB given renal function -Cardiology consultation is pending but anticipate medical management at this point given other comorbidities and risks Acute blood loss anemia -Patient is having both hematuria and is guaiac positive--> hematuria has improved -Urology is following for her hematuria--> Alexandre is in place and no need for continuous bladder irrigation -GI is following for her positive guaiac stool and is proposing EGD and colonoscopy when she is more medically stable in the future -Patient was transfused 3 units of packed red blood cells for hemoglobin of 5 on 02/16/2021 -Hemoglobin this a.m. is stable at 9.3 -Continue to monitor with CBC in a.m. -Likely multifactorial with thrombocytopenia which I suspect was related to consumption with bleeding as well as being on Eliquis 10 mg twice daily for an extended period of time in conjunction with EMANUEL -We will stop anticoagulation indefinitely Metabolic acidosis -pH on blood gas is 7.28 and bicarb is 16.6 -Suspect related to chronic renal disease -Start oral bicarb -PCO2 is 35.3 -Treating her metabolic acidosis may improve her respiratory rate some Thrombocytopenia -Suspect consumption although slowly trending back down -With active bleeding patient was transfused 2 pack of platelets on 10/16/2020 -Platelet count today is 69,000 -CBC in a.m. -Monitor closely Hematuria/hydronephrosis -Urology is following -Hematuria has improved and almost resolved -Maintain Alexandre until okay to remove from urology -Patient has stent in place -Continue Flomax Guaiac positive stool -GI is following and plans for EGD and colonoscopy in the future once patient is more medically stable inpatient versus outpatient -We will continue twice daily Protonix at this time with plans to switch to daily if no bleeding at discharge -If patient remains stable will convert to oral Protonix tomorrow Chronic left soleal DVT -First noted on ultrasound January 19, 2021 -Patient has had no propagation since that point time -Would recommend repeat ultrasound in 1 week and if no propagation likely okay to leave off anticoagulation and not proceed with IVC -If patient demonstrates propagation will need to consider IVC placement -Would not recommend reinitiation of anticoagulation with considerable bleeding at this time CKD stage IV -Baseline serum creatinine appears to be between 2.5 and 3 -Currently 2.44 -Continue Alexander at this time and remove once okay with urology -No current needs for [employer]PER[employer]OR -Follow-up with nephrology as an outpatient as long as patient remains stable Potential sepsis -With marked debilitation after recent extensive hospitalization related to Covid -Cultures negative with no growth to date DM-2 uncontrolled -Continue sliding scale -Monitor closely but proceed with caution given renal failure as patient will have delayed clearance of insulins -Accu-Cheks before meals and at bedtime -Carb controlled diet Hypertension/hyperlipidemia -Continue amlodipine, hydralazine and metoprolol -Continue to monitor blood pressure -Continue statin GERD -Continue Protonix IV 40 mg twice daily DVT prophylaxis -Hold Eliquis given bleeding -SCD right lower extremity -Known clot in left lower extremity CODE STATUS -Full code -Her overall prognosis is extremely poor and I do anticipate that she is 6 months or less to live. She has had multiple hospitalizations and multiple comorbidities. I had an extensive discussion with the patient today with regards to her current medical status. She has multiorgan disease and when we attempt to help and treat 1 comorbidity we end up causing a problem in another area. She was somewhat open to the discussion of hospice upon my conversation but seemed less open with palliative care today. I did attempt to call her daughter to get her involved but she at this time was not available. I will try to call her again tomorrow. Charges/Coding Visit Charges Inpatient E&M: 65215 Subs Hosp L2
[2021-02-20] MEDS: hydrALAZINE 50 MG Tablet 100 MG PO (14:32)
[2021-02-20] MEDS: Amiodarone 200 MG Tablet PO ×2 (14:33→21:12)
[2021-02-20] MEDS: 0.9% Saline Lock 10 ML Syringe IV ×2 (15:35→21:25)
[2021-02-20] MEDS: Tamsulosin HCl 0.4 MG Capsule PO (15:40)
[2021-02-20 15:51] LABS: Bedside Glucose 137 mg/dL (70-110)
[2021-02-20] MEDS: Sodium Bicarbonate 650 MG Tablet PO (21:16)
[2021-02-20] MEDS: Pantoprazole Sodium 40 MG Tablet PO (21:16)
[2021-02-20] MEDS: Atorvastatin Calcium 40 MG Tablet PO (21:34)
[2021-02-20 22:40] LABS: Bedside Glucose 131 mg/dL (70-110)
[2021-02-21] VITALS (18 sets, daily range): BP systolic 112–140; BP diastolic 53–64; PULSE 57–64; RESP 18–24; TEMP 36.3–36.7; O2SAT 92–97
[2021-02-21] MEDS: Ondansetron 4 MG/2 ML Vial IV (02:28)
[2021-02-21 06:42] LABS: Absolute Lymphocyte Count 0.49 X10^3/uL (0.83-4.51); Absolute Neutrophil Count 4.9 X10^3/uL (2.0-7.7); Basophil# 0.02 X10^3/uL; Basophil% 0.3 % (0-1); Eosinophil# 0.07 X10^3/uL; Eosinophils% 1.2 % (0-5); Hematocrit 30.3 % (37-47); Hemoglobin 9.7 g/dL (12.0-15.0); Lymphocyte # 0.49 X10^3/ul (0.83-4.51); Lymphocyte % 8.2 % (19-41); Mean Corpuscular Hgb 29.6 pg (27.0-32.0); Mean Corpuscular Volume 92.4 fL (81-99); Mean Platelet Vol. 11.6 fl (6.2-12.0); Monocyte# 0.39 X10^3/uL; Monocyte% 6.5 % (0-10); NRBC Flagged by Analyzer 1.2 % (0-5); Neutrophil # 4.86 X10^3/uL (2.7-7.7); Neutrophil % 81.5 % (47-70); POSITIVE COUNT YES; POSITIVE DIFFERENTIAL YES; Platelet Count 86 K/mm3 (150-450); RBC Distribution Width CV 14.9 % (11.6-14.6); RBC Distribution Width SD 49.9 fl (35.1-43.9); Red Blood Count 3.28 M/mm3 (4.2-5.4)
[2021-02-21 06:43] LABS: Differential Indicated SCAN CRITERIA MET
[2021-02-21] MEDS: Amiodarone 200 MG Tablet PO ×3 (06:46→20:54)
[2021-02-21] MEDS: hydrALAZINE 50 MG Tablet 100 MG PO (06:46)
[2021-02-21 07:05] LABS: Bedside Glucose 135 mg/dL (70-110)
[2021-02-21 07:17] LABS: Differential Comment SCANNED
[2021-02-21 07:18] LABS: Anisocytosis RARE; Macrocytosis RARE; Polychromasia RARE
--- NOTE | 2021-02-21 07:18 | PCM.PN.INT ---
Assessment & Plan Assessment/Plan (1) Acute blood loss anemia: (2) Hematuria: (3) Acute respiratory failure with hypoxia: (4) Thrombocytopenia: (5) Hyperglycemia: PLAN: RECOMMENDATIONS: 1. Lasix as needed to help with euvolemia. Challenge with diuretics. 2. Aggressive pulmonary toileting. Needs to get out of bed and work with therapy 3. Defer to GI and urology for blood loss 4. Possibly okay to discontinue empiric antibiotics given negative cultures 5. Keep platelets above 50,000 while actively having hematuria 6. Continue Lantus given hyperglycemia 7. Defer to cardiology on transitioning to p.o. amiodarone IMPRESSIONS: 1. Acute on chronic hypoxic respiratory failure secondary to acute on chronic CHF Patient presented with thrombocytopenia and anemia, likely secondary to GI/ sources. Patient received significant volume related to blood products. Patient appeared to have responded to BiPAP until diuretics could take effect. Continue with aggressive pulmonary toileting. We will continue diuretics as necessary to help with respiratory status. This is complicated by a recent COVID-19 hospitalization. Patient stable on her oxygen requirements, but this is likely secondary to decreased mobility. Patient needs aggressive pulmonary toileting and out of bed as tolerated. 2. Potential sepsis in the setting of acute blood loss anemia secondary to ureter bleeding Patient significantly debilitated given recent protracted hospitalization. Patient does have ureteral stents with hematuria, so bacteremia is possible. Cultures have been sent. Likely okay to discontinue antibiotics. Patient has remained hemodynamically stable, but hydralazine has been held. Rate control per cardiology. Bleeding is resolved 3. Uncontrolled diabetes mellitus type 2 Unclear if patient has an increased endogenous steroid production leading to hyperglycemia. Patient is not on steroids at this time. Lantus was discontinued secondary to some episodes of hypoglycemia. Continue with sliding scale. Good control thus far 4. Debilitated/advanced age/recent DVT/thrombocytopenia Complicates care, management, recovery and prognosis. 5. A. fib with RVR?new onset Resolved. Patient has remained in normal sinus rhythm. Defer to cardiology on transition to p.o. amiodarone. Subjective Subjective Patient did okay overnight from a hemodynamic standpoint. No bleeding has been reported. Patient states that she wants to go home, but readily admits that she refuses to work with therapy. Patient states she will not go to the chair as she feels this hurts my butt too much. Objective Data Objective Data Vital Signs: Vital Signs Temp Pulse Resp BP Pulse Ox 36.7 C 62 18 133/64 H 96 02/21/21 06:58 02/21/21 06:58 02/21/21 06:58 02/21/21 06:58 02/21/21 06:58 Oxygen Flow Rate (L/min) 5 Oxygen Delivery Method Nasal Cannula Weight: 59.8 kg Body Mass Index (BMI) 23.1 Intake & Output: Intake and Output for Last 24 Hours 02/19/21 02/20/21 02/21/21 23:59 23:59 23:59 Intake Total 2252.97 / 2252.97 847.19 / 847.19 150 / 150 Output Total 490 / 490 300 / 400 200 / 200 Balance 1762.97 / 1762.97 547.19 / 447.19 -50 / -50 Medical Nutrition Assessment Dietitian: Malnutrition Criteria Met Start: 02/16/21 15:42 Freq: Status: Active Protocol: Document 02/17/21 10:47 AG (Rec: 02/17/21 10:47 AG [id number]) Nutrition Malnutrition Evidence of Malnutrition Exists Yes Malnutrition (severe): Acute Illness/Injury Evidenced By Suboptimal Energy Intake ( Severe),Weight Loss (Severe) Clinical Problem Acute Disease or Injury Related Malnutrition Etiology Severe protein-calorie malnutrition in the context of acute illness related to inadequate oral intake d/t COVID Signs/Symptoms as evidenced by 11#/8% wt loss x 1 month and PO meeting less than 50% estimated nutrition needs x 1 month 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 Dietitian Recommendations/Changes Continue Carbohydrate- Controlled diet (no caloric/ cardiac diet restriction) d/t malnutrition; Will continue 240ml glucerna shake w/ breakfast and ensure pudding BID with lunch/dinner. Will adjust ONS to optimize intake and prevent further wt loss. Lab / Micro Data Result Diagrams: 02/21/21 06:15 02/20/21 06:35 Labs: Laboratory Results - last 24 hr 02/20/21 06:35: Sodium 136, Potassium 4.0, Chloride 110 H, Carbon Dioxide 14.0 L, Anion Gap 12, BUN 38 H, Creatinine 2.78 H, Estim Creat Clear Calc 13.60, Est GFR (MDRD) Af Amer 21 L, Est GFR (MDRD) Non-Af 18 L, BUN/Creatinine Ratio 13.7, Glucose 118 H, Calcium 7.2 L 02/20/21 15:26: POC Glucose 137 H 02/20/21 21:01: POC Glucose 131 H 02/21/21 06:15: WBC 6.0, RBC 3.28 L, Hgb 9.7 L, Hct 30.3 L, MCV 92.4, MCH 29.6, MCHC 32.0, RDW Std Deviation 49.9 H, RDW Coeff of Wade 14.9 H, Plt Count 86 L, MPV 11.6, Immature Gran % (Auto) 2.300 H, Neut % (Auto) 81.5 H, Lymph % (Auto) 8.2 L, [place] % (Auto) 6.5, Eos % (Auto) 1.2, Baso % (Auto) 0.3, Absolute Neuts (auto) 4.9, Absolute Lymphs (auto) 0.49 L, Nucleated RBC % 1.2, Differential Comment SCANNED, Polychromasia RARE, Anisocytosis RARE, Macrocytosis RARE 02/21/21 06:45: POC Glucose 135 H Micro: Microbiology 02/16/21 17:00 Blood Culture (Wb) - Anticubital Left Blood Culture - Preliminary No growth in 48 hours. 02/16/21 09:25 Urine Catheter - Alexandre Urine Culture - Final Culture exhibits no growth. 02/16/21 04:00 Blood Culture (Wb) - Other Blood Culture - Preliminary No growth in 48 hours. 02/16/21 20:35 Stool Stool Occult Blood (TANIYA) - Final Occult Blood Positive 02/16/21 09:25 Urine, Clean Catch Legionella Antigen - Final 02/16/21 09:25 Urine, Clean Catch Streptococcus pneumoniae Antigen (M - Final ABG Data ABG results: ABG 02/20/21 12:25 Specimen Type ART Sample Site L Radial pH 7.28 L Bicarbonate Actual 16.6 L Total CO2 18 Base Excess -10 L O2 Saturation 90 L ABG pCO2 35.3 ABG pO2 65 L Michael Test Positive O2 Delivery Device Cannula Liter Flow 5.0 Physical Exam Const alert and no apparent distress Constitutional Narrative: Conversational and interactive. General Appearance: cooperative and comfortable HEENT normocephalic Eyes EOMs intact bilaterally Eyes Narrative: No icterus Neck no lymphadenopathy Neck Narrative: Right IJ triple-lumen catheter. Chest inspection of chest normal Chest: symmetrical chest wall rise; Negative for crepitus Resp normal respiratory effort Auscultation: rhonchi, wheezes and diminished lung sounds; Negative for rales Cardio regular rate, regular rhythm, S1 normal heart sound and S2 normal heart sound GI normal to inspection, nondistended, normoactive bowel sounds, soft to palpation, non-tender and non-distended Narrative: Improved hematuria with no clots noted. Extremity Extremity Narrative: No edema. General Extremity: clubbing; Negative for cyanosis or edema Skin Skin Narrative: Improving bruising in her neck from triple-lumen catheter as well as in her groin. These do not appear to be expanding Neuro Neuro Narrative: Moves all extremities spontaneously. Right facial droop noted Sensorium / Orientation: alert Psych Psych Narrative: Not willing to talk about medical issues, just perseverates on going home. Charges/Coding Visit Charges Inpatient E&M: 92839 Subs Hosp L2
[2021-02-21] MEDS: Ipratropium/Albuterol Sulfate 3 ML AMPUL.NEB INHALATION ×3 (07:22→19:57)
[2021-02-21 07:34] LABS: Anion Gap 11 (5-15); BUN 42 mg/dL (7-18); BUN/Creat Ratio 13.7 RATIO (10-20); Calcium,Total 7.4 mg/dL (8.5-10.1); Chloride 114 mmol/L (98-107); Creatinine, Serum 3.07 mg/dL (0.55-1.02); EST Glomerular Filtration Rate 16 mL/min (>60); Est Glom Filt Rate - Afr Amer 19 mL/min (>60); Estimated Creatinine Clearance 12.32 ml/min; Glucose 152 mg/dL (74-106); Potassium 3.7 mmol/L (3.5-5.1); Sodium Level 142 mmol/L (136-145)
[2021-02-21] MEDS: Sodium Bicarbonate 650 MG Tablet PO ×4 (08:55→20:55)
[2021-02-21] MEDS: Pantoprazole Sodium 40 MG Tablet PO ×2 (08:55→20:55)
[2021-02-21] MEDS: amLODIPine 10 MG Tablet PO (08:55)
[2021-02-21] MEDS: guaiFENesin 1,200 MG Tablet 1200 MG PO ×2 (08:55→20:55)
[2021-02-21] MEDS: Metoprolol Tartrate 25 MG Tablet PO ×2 (08:55→20:54)
[2021-02-21] MEDS: Docusate Sodium 100 MG Capsule PO (08:56)
[2021-02-21] MEDS: Furosemide 40 MG/4 ML Vial IV (08:58)
[2021-02-21] MEDS: Insulin Lispro 100 UNIT/ML INSULN.PEN SC ×2 (11:46→17:40)
[2021-02-21] MEDS: guaiFENesin 10 ML UDC (200MG/10ML) 20 ML PO ×2 (11:51→17:48)
--- NOTE | 2021-02-21 11:53 | PCM.PN.CARD ---
Subjective Subjective Patient seen evaluated at bedside no detailed history. On the compliance monitor she had underlying normal sinus rhythm. Objective Data Vital Signs: Vital Signs Temp Pulse Resp BP Pulse Ox 97.6 F L 64 18 140/59 H 92 02/21/21 08:51 02/21/21 08:55 02/21/21 08:51 02/21/21 08:51 02/21/21 08:51 Oxygen Flow Rate (L/min) 5 Oxygen Delivery Method Room Air Weight: 131 lb 13.383 oz Body Mass Index (BMI) 23.1 Intake & Output: Intake and Output for Last 24 Hours 02/19/21 02/20/21 02/21/21 23:59 23:59 23:59 Intake Total 2252.97 / 2252.97 847.19 / 847.19 150 / 150 Output Total 490 / 490 300 / 400 300 / 300 Balance 1762.97 / 1762.97 547.19 / 447.19 -150 / -150 Lab / Micro Data Result Diagrams: 02/21/21 06:15 02/21/21 06:15 Labs: Laboratory Results - last 24 hr 02/20/21 15:26: POC Glucose 137 H 02/20/21 21:01: POC Glucose 131 H 02/21/21 06:15: WBC 6.0, RBC 3.28 L, Hgb 9.7 L, Hct 30.3 L, MCV 92.4, MCH 29.6, MCHC 32.0, RDW Std Deviation 49.9 H, RDW Coeff of Wade 14.9 H, Plt Count 86 L, MPV 11.6, Immature Gran % (Auto) 2.300 H, Neut % (Auto) 81.5 H, Lymph % (Auto) 8.2 L, [place] % (Auto) 6.5, Eos % (Auto) 1.2, Baso % (Auto) 0.3, Absolute Neuts (auto) 4.9, Absolute Lymphs (auto) 0.49 L, Nucleated RBC % 1.2, Differential Comment SCANNED, Polychromasia RARE, Anisocytosis RARE, Macrocytosis RARE 02/21/21 06:15: Sodium 142, Potassium 3.7, Chloride 114 H, Carbon Dioxide 17.0 L, Anion Gap 11, BUN 42 H, Creatinine 3.07 H, Estim Creat Clear Calc 12.32, Est GFR (MDRD) Af Amer 19 L, Est GFR (MDRD) Non-Af 16 L, BUN/Creatinine Ratio 13.7, Glucose 152 H, Calcium 7.4 L 02/21/21 06:45: POC Glucose 135 H Micro: Microbiology 02/16/21 04:00 Blood Culture (Wb) - Other Blood Culture - Final No growth in 5 days. ABG Data ABG results: ABG 02/20/21 12:25 Specimen Type ART Sample Site L Radial pH 7.28 L Bicarbonate Actual 16.6 L Total CO2 18 Base Excess -10 L O2 Saturation 90 L ABG pCO2 35.3 ABG pO2 65 L Michael Test Positive O2 Delivery Device Cannula Liter Flow 5.0 Cardiology Labs/Tests 02/20/21 12:25: pH 7.28 L, Bicarbonate Actual 16.6 L, Base Excess -10 L, O2 Saturation 90 L, ABG pCO2 35.3, ABG pO2 65 L, Michael Test Positive 02/21/21 06:15: WBC 6.0, RBC 3.28 L, Hgb 9.7 L, Hct 30.3 L, MCV 92.4, MCH 29.6, MCHC 32.0, Plt Count 86 L, MPV 11.6, Immature Gran % (Auto) 2.300 H, Neut % (Auto) 81.5 H, Lymph % (Auto) 8.2 L, [place] % (Auto) 6.5, Eos % (Auto) 1.2, Baso % (Auto) 0.3, Absolute Neuts (auto) 4.9, Nucleated RBC % 1.2 02/21/21 06:15: Sodium 142, Potassium 3.7, Chloride 114 H, Carbon Dioxide 17.0 L, Anion Gap 11, BUN 42 H, Creatinine 3.07 H, Est GFR (MDRD) Af Amer 19 L, Est GFR (MDRD) Non-Af 16 L, BUN/Creatinine Ratio 13.7, Glucose 152 H, Calcium 7.4 L Rhythm: Normal sinus rhythm Assessment & Plan Assessment/Plan (1) Shortness of breath: PLAN: This patient seen and evaluated today at bedside and discussed with the medical team. Patient has a multiple medical comorbidities with the acute blood loss anemia, history of acute respiratory failure with hypoxia Thrombocytopenia. cardiac consultation was because of elevated cardiac biomarker high sensitive troponin in addition to atrial fibrillation She converted to normal sinus rhythm and has been on amiodarone. Due to her severe anemia and thrombocytopenia she is not a candidate for anticoagulation. Also patient has a history of Covid pneumonia. Cardiac assessment recommendation; Would recommend to continue conservative treatment, patient on amiodarone p.o. 200 mg daily Noted platelet count improving to 86 and hemoglobin around 9.6 Not a candidate for invasive cardiac evaluation at this point. We will continue to monitor and follow-up clinically With the plan of follow-up with cardiology. (2) Benign essential HTN: (3) Abnormal cardiac enzyme level: (4) Acute blood loss anemia: (5) Thrombocytopenia: (6) Sepsis: QUALIFIERS: Sepsis type: sepsis due to unspecified organism Sepsis acute organ dysfunction status: with acute organ dysfunction Severe sepsis acute organ dysfunction type: encephalopathy Severe sepsis shock status: without septic shock Qualified Code(s): A41.9 - Sepsis, unspecified organism; R65.20 - Severe sepsis without septic shock; G93.40 - Encephalopathy, unspecified (7) Pneumonia: QUALIFIERS: Pneumonia type: due to unspecified organism Laterality: unspecified laterality Lung location: unspecified part of lung Qualified Code(s): J18.9 - Pneumonia, unspecified organism
[2021-02-21 11:55] LABS: Bedside Glucose 236 mg/dL (70-110)
[2021-02-21] MEDS: Acetaminophen 325 MG Tablet 650 MG PO (14:32)
--- NOTE | 2021-02-21 17:09 | PCM.PN.HOSP ---
Subjective Subjective Patient is perseverating on the fact that she wants to go home. I keep discussing with her that she has the inability to take care of herself at home right now and nobody to rely on to help her. The conversation persisted with her just wanting to go home and she really was not listening to what I had to say. As documented we had an extensive discussion yesterday about options. At this time she is come up with no further input into what care she would like. Objective Data Objective Data Vital Signs: Vital Signs Temp Pulse Resp BP Pulse Ox 97.8 F 62 22 H 118/53 L 92 02/21/21 14:26 02/21/21 15:00 02/21/21 14:26 02/21/21 14:26 02/21/21 14:26 Oxygen Flow Rate (L/min) 5 Oxygen Delivery Method Nasal Cannula Weight: 59.8 kg Body Mass Index (BMI) 23.1 Intake & Output: Intake and Output for Last 24 Hours 02/19/21 02/20/21 02/21/21 23:59 23:59 23:59 Intake Total 2252.97 / 2252.97 847.19 / 847.19 200 / 200 Output Total 490 / 490 300 / 400 300 / 300 Balance 1762.97 / 1762.97 547.19 / 447.19 -100 / -100 Medical Nutrition Assessment Dietitian: Malnutrition Criteria Met Start: 02/16/21 15:42 Freq: Status: Active Protocol: Document 02/17/21 10:47 AG (Rec: 02/17/21 10:47 AG [id number]) Nutrition Malnutrition Evidence of Malnutrition Exists Yes Malnutrition (severe): Acute Illness/Injury Evidenced By Suboptimal Energy Intake ( Severe),Weight Loss (Severe) Clinical Problem Acute Disease or Injury Related Malnutrition Etiology Severe protein-calorie malnutrition in the context of acute illness related to inadequate oral intake d/t COVID Signs/Symptoms as evidenced by 11#/8% wt loss x 1 month and PO meeting less than 50% estimated nutrition needs x 1 month 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 Dietitian Recommendations/Changes Continue Carbohydrate- Controlled diet (no caloric/ cardiac diet restriction) d/t malnutrition; Will continue 240ml glucerna shake w/ breakfast and ensure pudding BID with lunch/dinner. Will adjust ONS to optimize intake and prevent further wt loss. Lab / Micro Data Result Diagrams: 02/21/21 06:15 02/21/21 06:15 Labs: Laboratory Results - last 24 hr 02/20/21 21:01: POC Glucose 131 H 02/21/21 06:15: WBC 6.0, RBC 3.28 L, Hgb 9.7 L, Hct 30.3 L, MCV 92.4, MCH 29.6, MCHC 32.0, RDW Std Deviation 49.9 H, RDW Coeff of Wade 14.9 H, Plt Count 86 L, MPV 11.6, Immature Gran % (Auto) 2.300 H, Neut % (Auto) 81.5 H, Lymph % (Auto) 8.2 L, [place] % (Auto) 6.5, Eos % (Auto) 1.2, Baso % (Auto) 0.3, Absolute Neuts (auto) 4.9, Absolute Lymphs (auto) 0.49 L, Nucleated RBC % 1.2, Differential Comment SCANNED, Polychromasia RARE, Anisocytosis RARE, Macrocytosis RARE 02/21/21 06:15: Sodium 142, Potassium 3.7, Chloride 114 H, Carbon Dioxide 17.0 L, Anion Gap 11, BUN 42 H, Creatinine 3.07 H, Estim Creat Clear Calc 12.32, Est GFR (MDRD) Af Amer 19 L, Est GFR (MDRD) Non-Af 16 L, BUN/Creatinine Ratio 13.7, Glucose 152 H, Calcium 7.4 L 02/21/21 06:45: POC Glucose 135 H 02/21/21 11:43: POC Glucose 236 H Micro: Microbiology 02/16/21 04:00 Blood Culture (Wb) - Other Blood Culture - Final No growth in 5 days. 02/16/21 17:00 Blood Culture (Wb) - Anticubital Left Blood Culture - Preliminary No growth in 48 hours. 02/16/21 09:25 Urine Catheter - Alexandre Urine Culture - Final Culture exhibits no growth. 02/16/21 20:35 Stool Stool Occult Blood (TANIYA) - Final Occult Blood Positive 02/16/21 09:25 Urine, Clean Catch Legionella Antigen - Final 02/16/21 09:25 Urine, Clean Catch Streptococcus pneumoniae Antigen (M - Final Physical Exam Const alert, oriented x3, no apparent distress and average body habitus Constitutional Narrative: Elderly white female lying in bed, watching television, appears comfortable but is significantly tachypneic, nontoxic, nursing at bedside Orientation / Consciousness: confused Exam Limitations: other limitations HEENT normocephalic, head/scalp atraumatic and moist oral mucous membranes Head and Scalp: normocephalic Resp normal respiratory effort, no retractions and no use of accessory muscles Resp Narrative: Scattered rhonchi and coarse cough, scattered wheezes and diffusely diminished, patient is tachypneic at rest and has intermittent rhonchorous coughing but the cough is extremely weak Auscultation: rhonchi and wheezes; Negative for crackles or rales Cardio regular rate, regular rhythm, S1 normal heart sound, S2 normal heart sound, no murmurs, no rub, no gallops, no clicks and no JVD GI normal to inspection, nondistended, normoactive bowel sounds, soft to palpation, non-tender and non-distended Extremity Extremity Narrative: Clubbing present, no cyanosis or edema Peripheral Pulses: Yes pulses 2+ throughout Skin no rashes or lesions noted, no wounds, skin turgor normal, no jaundice, no petechiae and no mottling Skin Narrative: Ecchymosis surrounding her triple-lumen catheter in the right neck Neuro oriented x3, moves all extremities and no focal motor deficits Neuro Narrative: Marked generalized weakness but no focal deficits, speech is clear Sensorium / Orientation: awake and alert Speech: speech normal Psych Psych Narrative: Patient consistently perseverating on just wanting to go home and be with her dog but not being realistic with her current capabilities Assessment & Plan Assessment/Plan (1) Acute and chronic respiratory failure with hypoxia: (2) Hydronephrosis: (3) Hematuria: (4) Acute blood loss anemia: (5) Thrombocytopenia: (6) DVT (deep venous thrombosis): PLAN: Acute on chronic hypoxic respiratory failure secondary to recent COVID-19 infection -Patient without history of heart failure -Echo done recently on 01/21/2021 shows an EF of 60% and a normal LV without diastolic dysfunction -It is conceivable that the patient could have pulmonary hypertension secondary to her chronic lung issues with recent Covid infection and her respiratory issues with transfusion are related to this -She remains on 5 L nasal cannula with an SPO2 in the low 92-95% -Continue aggressive pulmonary toilet, incentive spirometry, Pep--> patient is fairly noncompliant with any therapies recommended -Pulmonary medicine is consulted appreciate input -Continue Zosyn--> patient has not been able to produce a sputum -Day 5 of 7 -IV Lasix given pulmonary medicine today with no significant increase in urine output--> I suspect this is related to her renal function being poor A. fib with RVR -This is new for the patient -Resolved and has maintained sinus rhythm status post cardioversion -Limited echo is unchanged from previous echocardiogram -Unable to place on full anticoagulation given severe anemia and thrombocytopenia with marked hematuria and guaiac positive stool -Continue amiodarone per cardiology--> taper order in place by Dr. Mcclelland -Cardiology is following-appreciate input NSTEMI -Suspect NSTEMI type II given tachycardia and anemia on presentation although patient has several risk factors that place her at increased risk for coronary disease and type I NSTEMI -Peak troponin was 20,707 -Do anticipate the patient has significant coronary disease but we are unfortunately limited with care at this time given overall clinical picture -Had an echo in January that had a normal EF at 65% -Echo remained stable when compared to echo approximately 1 month ago -Unable to initiate antiplatelet therapy or anticoagulation so we will pursue medical therapy at this time and depending on her course consider further outpatient work-up -EKG shows some ST-T wave depression but is mild in the lateral/inferior leads but no ST elevation -This did resolve with improved heart rate control -Unable to start aspirin secondary to bleeding as noted above -Continue beta-scar -No ANTHONY inhibitor or ARB given renal function -Cardiology consultation is pending but anticipate medical management at this point given other comorbidities and risks Acute blood loss anemia -Patient is having both hematuria and is guaiac positive--> hematuria has improved -Urology is following for her hematuria--> Alexandre is in place and no need for continuous bladder irrigation -GI is following for her positive guaiac stool and is proposing EGD and colonoscopy when she is more medically stable in the future -Patient was transfused 3 units of packed red blood cells for hemoglobin of 5 on 02/16/2021 -Hemoglobin this a.m. is stable at 9.7 -Continue to monitor with CBC in a.m. -Likely multifactorial with thrombocytopenia which I suspect was related to consumption with bleeding as well as being on Eliquis 10 mg twice daily for an extended period of time in conjunction with EMANUEL -We will stop anticoagulation indefinitely Metabolic acidosis -Serum bicarb is trending up--> depending on serum bicarb tomorrow will obtain a repeat ABG -pH on blood gas is 7.28 and bicarb is 16.6-PCO2 is 35.3 02/20/2021 -Suspect related to chronic renal disease -Continue oral bicarb -Treating her metabolic acidosis may improve her respiratory rate some Thrombocytopenia -Suspect consumption although slowly trending back down -With active bleeding patient was transfused 2 pack of platelets on 10/16/2020 -Platelet count has now seemingly stabilized and today is back up to 86,000 -CBC in a.m. -Monitor closely Hematuria/hydronephrosis -Urology is following -Hematuria has improved and almost resolved -Maintain Alexandre until okay to remove from urology -Patient has stent in place -Continue Flomax Guaiac positive stool -GI is following and plans for EGD and colonoscopy in the future once patient is more medically stable inpatient versus outpatient -We will continue twice daily Protonix at this time with plans to switch to daily if no bleeding at discharge -Continue oral Protonix 40 mg twice daily Chronic left soleal DVT -First noted on ultrasound January 19, 2021 -Patient has had no propagation since that point time -Would recommend repeat ultrasound in 1 week and if no propagation likely okay to leave off anticoagulation and not proceed with IVC -If patient demonstrates propagation will need to consider IVC placement -Would not recommend reinitiation of anticoagulation with considerable bleeding at this time CKD stage IV -Baseline serum creatinine appears to be between 2.5 and 3 -Serum creatinine is worsening and is at 3.07 today -Continue Alexandre at this time and remove once okay with urology -No current needs for [employer] -Follow-up with nephrology as an outpatient as long as patient remains stable Potential sepsis -With marked debilitation after recent extensive hospitalization related to Covid -Cultures negative with no growth to date -Complete full course of antibiotics for suspected pneumonia as patient was not able to produce a specimen DM-2 uncontrolled -Continue sliding scale -Monitor closely but proceed with caution given renal failure as patient will have delayed clearance of insulins -Accu-Cheks before meals and at bedtime -Carb controlled diet Hypertension/hyperlipidemia -Continue amlodipine, hydralazine and metoprolol -Continue to monitor blood pressure -Continue statin GERD -Continue p.o. Protonix 40 mg twice daily DVT prophylaxis -Hold Eliquis given bleeding -SCD right lower extremity -Known clot in left lower extremity CODE STATUS -Full code -Her overall prognosis is extremely poor and I do anticipate that she is 6 months or less to live. She has had multiple hospitalizations and multiple comorbidities. I had an extensive discussion with the patient today with regards to her current medical status. She has multiorgan disease and when we attempt to help and treat 1 comorbidity we end up causing a problem in another area. She was somewhat open to the discussion of hospice upon my conversation on 02/20/2021 but seemed less open with palliative care. On 02/21/2021 she perseverated on going home with a full discharge although she is not capable of taking care of herself at all and is clearly not stable for any discharge plan out of the hospital unless it would be to hospice at this time. I did again call her daughter today at 1729 to see if we could have some assistance and to gather her input but again there was no answer. Charges/Coding Visit Charges Inpatient E&M: 22680 Subs Hosp L2
[2021-02-21] MEDS: Tamsulosin HCl 0.4 MG Capsule PO (17:41)
[2021-02-21 17:55] LABS: Bedside Glucose 268 mg/dL (70-110)
[2021-02-21] MEDS: Atorvastatin Calcium 40 MG Tablet PO (20:54)
[2021-02-21] MEDS: 0.9% Saline Lock 10 ML Syringe IV (20:55)
[2021-02-21 21:11] LABS: Bedside Glucose 198 mg/dL (70-110)
[2021-02-22] VITALS (16 sets, daily range): BP systolic 111–125; BP diastolic 58–104; PULSE 55–65; RESP 16–28; TEMP 36.2–36.8; O2SAT 93–97
[2021-02-22] MEDS: guaiFENesin 10 ML UDC (200MG/10ML) 20 ML PO ×3 (00:18→14:21)
[2021-02-22] MEDS: Acetaminophen 325 MG Tablet 650 MG PO (03:06)
[2021-02-22] MEDS: Amiodarone 200 MG Tablet PO ×3 (06:27→21:32)
[2021-02-22] MEDS: Insulin Lispro 100 UNIT/ML INSULN.PEN SC ×3 (06:27→17:09)
[2021-02-22] MEDS: Ipratropium/Albuterol Sulfate 3 ML AMPUL.NEB INHALATION ×3 (06:50→20:15)
[2021-02-22 06:55] LABS: Absolute Lymphocyte Count 0.42 X10^3/uL (0.83-4.51); Absolute Neutrophil Count 3.9 X10^3/uL (2.0-7.7); Basophil# 0.01 X10^3/uL; Basophil% 0.2 % (0-1); Eosinophil# 0.09 X10^3/uL; Eosinophils% 1.9 % (0-5); Hematocrit 28.9 % (37-47); Hemoglobin 9.1 g/dL (12.0-15.0); Lymphocyte # 0.42 X10^3/ul (0.83-4.51); Lymphocyte % 8.7 % (19-41); Mean Corp Hgb Conc 31.5 g/dL (32-36); Mean Corpuscular Hgb 28.9 pg (27.0-32.0); Mean Corpuscular Volume 91.7 fL (81-99); Mean Platelet Vol. 12.1 fl (6.2-12.0); Monocyte# 0.36 X10^3/uL; Monocyte% 7.5 % (0-10); NRBC Flagged by Analyzer 1.2 % (0-5); Neutrophil # 3.85 X10^3/uL (2.7-7.7); POSITIVE COUNT YES; POSITIVE DIFFERENTIAL YES; Platelet Count 82 K/mm3 (150-450); RBC Distribution Width CV 15.4 % (11.6-14.6); Red Blood Count 3.15 M/mm3 (4.2-5.4); White Blood Count 4.8 K/mm3 (4.4-11.0)
[2021-02-22 06:57] LABS: Differential Indicated SCAN CRITERIA MET
[2021-02-22 07:00] LABS: Bedside Glucose 204 mg/dL (70-110)
[2021-02-22 07:13] LABS: Anion Gap 12 (5-15); BUN 48 mg/dL (7-18); BUN/Creat Ratio 13.8 RATIO (10-20); Calcium,Total 7.3 mg/dL (8.5-10.1); Chloride 112 mmol/L (98-107); Creatinine, Serum 3.47 mg/dL (0.55-1.02); EST Glomerular Filtration Rate 14 mL/min (>60); Est Glom Filt Rate - Afr Amer 17 mL/min (>60); Glucose 233 mg/dL (74-106); Potassium 3.4 mmol/L (3.5-5.1); Sodium Level 142 mmol/L (136-145)
--- NOTE | 2021-02-22 07:31 | NURSING ---
all documentation completed by Kika DAVIS reviewed by this RN
--- NOTE | 2021-02-22 07:45 | PCM.PN.INT ---
Assessment & Plan Assessment/Plan (1) Acute blood loss anemia: (2) Hematuria: (3) Acute respiratory failure with hypoxia: (4) Thrombocytopenia: (5) Hyperglycemia: PLAN: RECOMMENDATIONS: 1. Lasix as needed to help with euvolemia. Hold diuretics. 2. Aggressive pulmonary toileting. Needs to get out of bed and work with therapy 3. Defer to GI and urology for blood loss 4. Possibly okay to discontinue empiric antibiotics given negative cultures 5. Keep platelets above 50,000 while actively having hematuria 6. Continue Lantus given hyperglycemia 7. Continue amiodarone. Agree with holding anticoagulation IMPRESSIONS: 1. Acute on chronic hypoxic respiratory failure secondary to acute on chronic CHF Patient presented with thrombocytopenia and anemia, likely secondary to GI/ sources. Patient received significant volume related to blood products. Patient appeared to have responded to BiPAP until diuretics could take effect. Continue with aggressive pulmonary toileting. We will continue diuretics as necessary to help with respiratory status. This is complicated by a recent COVID-19 hospitalization. Patient stable on her oxygen requirements, but this is likely secondary to decreased mobility. Patient needs aggressive pulmonary toileting and out of bed as tolerated. No diuresis given increase in creatinine 2. Potential sepsis in the setting of acute blood loss anemia secondary to ureter bleeding Patient significantly debilitated given recent protracted hospitalization. Patient does have ureteral stents with hematuria, so bacteremia is possible. Cultures have been sent. Likely okay to discontinue antibiotics. Tomorrow will be 7 total days of antibiotics. Patient has remained hemodynamically stable, but hydralazine has been held. Rate control per cardiology. Bleeding is resolved 3. Uncontrolled diabetes mellitus type 2 Unclear if patient has an increased endogenous steroid production leading to hyperglycemia. Patient is not on steroids at this time. Lantus was discontinued secondary to some episodes of hypoglycemia. Continue with sliding scale. Good control thus far 4. Debilitated/advanced age/recent DVT/thrombocytopenia Complicates care, management, recovery and prognosis. 5. A. fib with RVR?new onset Resolved. Patient has remained in normal sinus rhythm. Defer to cardiology on transition to p.o. amiodarone. Subjective Subjective Patient did well overnight. No acute issues were reported. Patient continues to refuse getting out of bed. Patient denied any chest pain or shortness of breath. Objective Data Objective Data Vital Signs: Vital Signs Temp Pulse Resp BP Pulse Ox 36.6 C 58 L 24 H 111/78 95 02/22/21 06:34 02/22/21 06:50 02/22/21 06:50 02/22/21 06:34 02/22/21 06:50 Oxygen Flow Rate (L/min) 4 Oxygen Delivery Method Nasal Cannula Weight: 61.1 kg Body Mass Index (BMI) 23.1 Intake & Output: Intake and Output for Last 24 Hours 02/20/21 02/21/21 02/22/21 23:59 23:59 23:59 Intake Total 847.19 / 847.19 200 / 200 290 / 290 Output Total 300 / 400 350 / 450 200 / 200 Balance 547.19 / 447.19 -150 / -250 90 / 90 Medical Nutrition Assessment Dietitian: Malnutrition Criteria Met Start: 02/16/21 15:42 Freq: Status: Active Protocol: Document 02/17/21 10:47 AG (Rec: 02/17/21 10:47 AG [id number]) Nutrition Malnutrition Evidence of Malnutrition Exists Yes Malnutrition (severe): Acute Illness/Injury Evidenced By Suboptimal Energy Intake ( Severe),Weight Loss (Severe) Clinical Problem Acute Disease or Injury Related Malnutrition Etiology Severe protein-calorie malnutrition in the context of acute illness related to inadequate oral intake d/t COVID Signs/Symptoms as evidenced by 11#/8% wt loss x 1 month and PO meeting less than 50% estimated nutrition needs x 1 month 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 Dietitian Recommendations/Changes Continue Carbohydrate- Controlled diet (no caloric/ cardiac diet restriction) d/t malnutrition; Will continue 240ml glucerna shake w/ breakfast and ensure pudding BID with lunch/dinner. Will adjust ONS to optimize intake and prevent further wt loss. Lab / Micro Data Result Diagrams: 02/22/21 06:22 02/22/21 06:22 Labs: Laboratory Results - last 24 hr 02/21/21 11:43: POC Glucose 236 H 02/21/21 17:35: POC Glucose 268 H 02/21/21 20:49: POC Glucose 198 H 02/22/21 06:22: WBC 4.8, RBC 3.15 L, Hgb 9.1 L, Hct 28.9 L, MCV 91.7, MCH 28.9, MCHC 31.5 L, RDW Std Deviation 51.0 H, RDW Coeff of Wade 15.4 H, Plt Count 82 L, MPV 12.1 H, Immature Gran % (Auto) 1.700 H, Neut % (Auto) 80.0 H, Lymph % (Auto) 8.7 L, [place] % (Auto) 7.5, Eos % (Auto) 1.9, Baso % (Auto) 0.2, Absolute Neuts (auto) 3.9, Absolute Lymphs (auto) 0.42 L, Nucleated RBC % 1.2 02/22/21 06:22: Sodium 142, Potassium 3.4 L, Chloride 112 H, Carbon Dioxide 18.0 L, Anion Gap 12, BUN 48 H, Creatinine 3.47 H, Estim Creat Clear Calc 10.90, Est GFR (MDRD) Af Amer 17 L, Est GFR (MDRD) Non-Af 14 L, BUN/Creatinine Ratio 13.8, Glucose 233 H, Calcium 7.3 L 02/22/21 06:26: POC Glucose 204 H Micro: Microbiology 02/16/21 17:00 Blood Culture (Wb) - Anticubital Left Blood Culture - Final No growth in 5 days. 02/16/21 04:00 Blood Culture (Wb) - Other Blood Culture - Final No growth in 5 days. 02/16/21 09:25 Urine Catheter - Alexandre Urine Culture - Final Culture exhibits no growth. 02/16/21 20:35 Stool Stool Occult Blood (TANIYA) - Final Occult Blood Positive 02/16/21 09:25 Urine, Clean Catch Legionella Antigen - Final 02/16/21 09:25 Urine, Clean Catch Streptococcus pneumoniae Antigen (M - Final Physical Exam Const alert and no apparent distress Constitutional Narrative: Conversational and interactive. General Appearance: cooperative and comfortable HEENT normocephalic Eyes EOMs intact bilaterally Eyes Narrative: No icterus Neck no lymphadenopathy Neck Narrative: Right IJ triple-lumen catheter. Chest inspection of chest normal Chest: symmetrical chest wall rise; Negative for crepitus Resp normal respiratory effort Auscultation: rhonchi, wheezes and diminished lung sounds; Negative for rales Cardio regular rate, regular rhythm, S1 normal heart sound and S2 normal heart sound GI normal to inspection, nondistended, normoactive bowel sounds, soft to palpation, non-tender and non-distended Extremity Extremity Narrative: No edema. General Extremity: clubbing; Negative for cyanosis or edema Skin Skin Narrative: Improving bruising in her neck from triple-lumen catheter as well as in her groin. These do not appear to be expanding Neuro Neuro Narrative: Moves all extremities spontaneously. Right facial droop noted Sensorium / Orientation: alert Psych Psych Narrative: Not willing to talk about medical issues, just perseverates on going home. Charges/Coding Visit Charges Inpatient E&M: 51526 Subs Hosp L2
[2021-02-22 08:58] LABS: Differential Comment SCANNED
[2021-02-22] MEDS: Pantoprazole Sodium 40 MG Tablet PO ×2 (09:11→21:31)
[2021-02-22] MEDS: Docusate Sodium 100 MG Capsule PO (09:11)
[2021-02-22] MEDS: Metoprolol Tartrate 25 MG Tablet PO (09:11)
[2021-02-22] MEDS: amLODIPine 10 MG Tablet PO (09:11)
[2021-02-22] MEDS: Sodium Bicarbonate 650 MG Tablet PO ×4 (09:11→21:31)
[2021-02-22] MEDS: guaiFENesin 1,200 MG Tablet 1200 MG PO ×2 (09:11→21:31)
[2021-02-22] MEDS: Potassium Chloride Oral Soln 20 MEQ/15 ML UDC 40 MEQ PO (10:10)
[2021-02-22 12:25] LABS: Bedside Glucose 205 mg/dL (70-110)
--- NOTE | 2021-02-22 13:36 | PN.CARD_ITS ---
Subjective Subjective Evaluated today no symptoms reported Objective Data Vital Signs: Vital Signs Temp Pulse Resp BP Pulse Ox 97.6 F L 58 L 28 H 113/58 L 94 02/22/21 09:08 02/22/21 12:41 02/22/21 12:41 02/22/21 09:08 02/22/21 09:08 Oxygen Flow Rate (L/min) 4 Oxygen Delivery Method Nasal Cannula Weight: 134 lb 11.239 oz Body Mass Index (BMI) 23.1 Intake & Output: Intake and Output for Last 24 Hours 02/20/21 02/21/21 02/22/21 23:59 23:59 23:59 Intake Total 847.19 / 847.19 200 / 200 290 / 290 Output Total 300 / 400 350 / 450 250 / 250 Balance 547.19 / 447.19 -150 / -250 40 / 40 Lab / Micro Data Result Diagrams: 02/22/21 06:22 02/22/21 06:22 Labs: Laboratory Results - last 24 hr 02/21/21 17:35: POC Glucose 268 H 02/21/21 20:49: POC Glucose 198 H 02/22/21 06:22: WBC 4.8, RBC 3.15 L, Hgb 9.1 L, Hct 28.9 L, MCV 91.7, MCH 28.9, MCHC 31.5 L, RDW Std Deviation 51.0 H, RDW Coeff of Wa[place] 15.4 H, Plt Count 82 L, MPV 12.1 H, Immature Gran % (Auto) 1.700 H, Neut % (Auto) 80.0 H, Lymph % (Auto) 8.7 L, [place] % (Auto) 7.5, Eos % (Auto) 1.9, Baso % (Auto) 0.2, Absolute Neuts (auto) 3.9, Absolute Lymphs (auto) 0.42 L, Nucleated RBC % 1.2, Differential Comment SCANNED 02/22/21 06:22: Sodium 142, Potassium 3.4 L, Chloride 112 H, Carbon Dioxide 18.0 L, Anion Gap 12, BUN 48 H, Creatinine 3.47 H, Estim Creat Clear Calc 10.90, Est GFR (MDRD) Af Amer 17 L, Est GFR (MDRD) Non-Af 14 L, BUN/Creatinine Ratio 13.8, Glucose 233 H, Calcium 7.3 L 02/22/21 06:26: POC Glucose 204 H 02/22/21 12:16: POC Glucose 205 H Micro: Microbiology 02/16/21 17:00 Blood Culture (Wb) - Anticubital Left Blood Culture - Final No growth in 5 days. 02/16/21 04:00 Blood Culture (Wb) - Other Blood Culture - Final No growth in 5 days. Cardiology Labs/Tests 02/22/21 06:22: WBC 4.8, RBC 3.15 L, Hgb 9.1 L, Hct 28.9 L, MCV 91.7, MCH 28.9, MCHC 31.5 L, Plt Count 82 L, MPV 12.1 H, Immature Gran % (Auto) 1.700 H, Neut % (Auto) 80.0 H, Lymph % (Auto) 8.7 L, [place] % (Auto) 7.5, Eos % (Auto) 1.9, Baso % (Auto) 0.2, Absolute Neuts (auto) 3.9, Nucleated RBC % 1.2 02/22/21 06:22: Sodium 142, Potassium 3.4 L, Chloride 112 H, Carbon Dioxide 18.0 L, Anion Gap 12, BUN 48 H, Creatinine 3.47 H, Est GFR (MDRD) Af Amer 17 L, Est GFR (MDRD) Non-Af 14 L, BUN/Creatinine Ratio 13.8, Glucose 233 H, Calcium 7.3 L Rhythm: EKG: ECHO: Stress Test: Cardiac Cath: PCI: CT Surgery: Holter monitor: EPS: PPM: CXR: Chest CT Scan: Assessment & Plan Assessment/Plan (1) Atrial fibrillation: PLAN: 75-year-old patient with multiple medical comorbidities patient had anemia with thrombocytopenia She has a new onset A. fib with RVR converted to normal sinus rhythm and has been on. Cardiovascular assessment and recommendations; This patient is not a candidate for anticoagulation she remains in sinus rhythm on amiodarone. Patient had a recent COVID-19 with abnormal troponin I, and this can be evaluated as an outpatient setting once she is stable. At this point patient is not a candidate for invasive cardiac evaluation Primary interpreter and translator Dr. Mcclelland, will resume care (2) Shortness of breath: (3) Acute and chronic respiratory failure with hypoxia: (4) Acute blood loss anemia: (5) Thrombocytopenia:
--- NOTE | 2021-02-22 14:59 | PCM.PN.HOSP ---
Subjective Subjective Patient still perseverating on going home but does seem to realize that she is unable to care for herself. Despite her saying she wants to go home she is not willing to do things such as get out of bed, work with therapy, use her incentive spirometer and Acapella to help facilitate getting home eventually. I discussed all these things with her today and again she seems refractory to conversation with regards to her next level of care. Her daughter did present at the bedside today and had a discussion with nursing and evidently her daughter is in agreement that something needs to be done including considering hospice. Unfortunately her mother is decisional at this time and cannot force her to do anything. Objective Data Objective Data Vital Signs: Vital Signs Temp Pulse Resp BP Pulse Ox 97.6 F L 55 L 18 123/104 H 93 02/22/21 14:16 02/22/21 14:18 02/22/21 14:16 02/22/21 14:16 02/22/21 14:16 Oxygen Flow Rate (L/min) 4 Oxygen Delivery Method Nasal Cannula Weight: 61.1 kg Body Mass Index (BMI) 23.1 Intake & Output: Intake and Output for Last 24 Hours 02/20/21 02/21/21 02/22/21 23:59 23:59 23:59 Intake Total 847.19 / 847.19 200 / 200 290 / 290 Output Total 300 / 400 350 / 450 250 / 250 Balance 547.19 / 447.19 -150 / -250 40 / 40 Medical Nutrition Assessment Dietitian: Malnutrition Criteria Met Start: 02/16/21 15:42 Freq: Status: Active Protocol: Document 02/17/21 10:47 AG (Rec: 02/17/21 10:47 AG [id number]) Nutrition Malnutrition Evidence of Malnutrition Exists Yes Malnutrition (severe): Acute Illness/Injury Evidenced By Suboptimal Energy Intake ( Severe),Weight Loss (Severe) Clinical Problem Acute Disease or Injury Related Malnutrition Etiology Severe protein-calorie malnutrition in the context of acute illness related to inadequate oral intake d/t COVID Signs/Symptoms as evidenced by 11#/8% wt loss x 1 month and PO meeting less than 50% estimated nutrition needs x 1 month 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 Dietitian Recommendations/Changes Continue Carbohydrate- Controlled diet (no caloric/ cardiac diet restriction) d/t malnutrition; Will continue 240ml glucerna shake w/ breakfast and ensure pudding BID with lunch/dinner. Will adjust ONS to optimize intake and prevent further wt loss. Lab / Micro Data Result Diagrams: 02/22/21 06:22 02/22/21 06:22 Labs: Laboratory Results - last 24 hr 02/21/21 17:35: POC Glucose 268 H 02/21/21 20:49: POC Glucose 198 H 02/22/21 06:22: WBC 4.8, RBC 3.15 L, Hgb 9.1 L, Hct 28.9 L, MCV 91.7, MCH 28.9, MCHC 31.5 L, RDW Std Deviation 51.0 H, RDW Coeff of Wade 15.4 H, Plt Count 82 L, MPV 12.1 H, Immature Gran % (Auto) 1.700 H, Neut % (Auto) 80.0 H, Lymph % (Auto) 8.7 L, [place] % (Auto) 7.5, Eos % (Auto) 1.9, Baso % (Auto) 0.2, Absolute Neuts (auto) 3.9, Absolute Lymphs (auto) 0.42 L, Nucleated RBC % 1.2, Differential Comment SCANNED 02/22/21 06:22: Sodium 142, Potassium 3.4 L, Chloride 112 H, Carbon Dioxide 18.0 L, Anion Gap 12, BUN 48 H, Creatinine 3.47 H, Estim Creat Clear Calc 10.90, Est GFR (MDRD) Af Amer 17 L, Est GFR (MDRD) Non-Af 14 L, BUN/Creatinine Ratio 13.8, Glucose 233 H, Calcium 7.3 L 02/22/21 06:26: POC Glucose 204 H 02/22/21 12:16: POC Glucose 205 H Micro: Microbiology 02/16/21 17:00 Blood Culture (Wb) - Anticubital Left Blood Culture - Final No growth in 5 days. 02/16/21 04:00 Blood Culture (Wb) - Other Blood Culture - Final No growth in 5 days. 02/16/21 09:25 Urine Catheter - Alexandre Urine Culture - Final Culture exhibits no growth. 02/16/21 20:35 Stool Stool Occult Blood (TANIYA) - Final Occult Blood Positive 02/16/21 09:25 Urine, Clean Catch Legionella Antigen - Final 02/16/21 09:25 Urine, Clean Catch Streptococcus pneumoniae Antigen (M - Final Physical Exam Const alert, oriented x3, no apparent distress and average body habitus Constitutional Narrative: Elderly white female lying in bed, watching television, appears comfortable but is significantly tachypneic, nontoxic, nursing at bedside Orientation / Consciousness: confused Exam Limitations: no limitations HEENT normocephalic, head/scalp atraumatic and moist oral mucous membranes Head and Scalp: normocephalic Neck no lymphadenopathy Neck Narrative: Right IJ in place with surrounding ecchymosis Resp normal respiratory effort, no retractions and no use of accessory muscles Resp Narrative: Scattered rhonchi and coarse cough, scattered wheezes and diffusely diminished, patient is tachypneic at rest and has intermittent rhonchorous coughing but the cough is extremely weak Auscultation: rhonchi and wheezes; Negative for crackles or rales Cardio regular rhythm, S1 normal heart sound, S2 normal heart sound, no murmurs, no rub, no gallops, no clicks and no JVD Cardio Narrative: Mild bradycardia GI normal to inspection, nondistended, normoactive bowel sounds, soft to palpation, non-tender and non-distended Extremity Extremity Narrative: Clubbing present, no cyanosis or edema Peripheral Pulses: Yes pulses 2+ throughout Neuro oriented x3, moves all extremities and no focal motor deficits Neuro Narrative: Marked generalized weakness but no focal deficits, speech is clear Sensorium / Orientation: awake and alert Speech: speech normal Assessment & Plan Assessment/Plan (1) Acute and chronic respiratory failure with hypoxia: (2) Hydronephrosis: (3) Hematuria: (4) Acute blood loss anemia: (5) Thrombocytopenia: (6) DVT (deep venous thrombosis): PLAN: Acute on chronic hypoxic respiratory failure secondary to recent COVID-19 infection -Patient without history of heart failure -Echo done recently on 01/21/2021 shows an EF of 60% and a normal LV without diastolic dysfunction -It is conceivable that the patient could have pulmonary hypertension secondary to her chronic lung issues with recent Covid infection and her respiratory issues with transfusion are related to this -Patient has been weaned to 4 L nasal cannula with an SPO2 in the low 93-95% -Continue aggressive pulmonary toilet, incentive spirometry, Pep--> patient is fairly noncompliant with any therapies recommended -Pulmonary medicine is consulted appreciate input -Continue Zosyn--> patient has not been able to produce a sputum -Day 6 7 -No Lasix today New A. fib with RVR -Resolved and has maintained sinus rhythm status post cardioversion -Limited echo is unchanged from previous echocardiogram -Unable to place on full anticoagulation given severe anemia and thrombocytopenia with marked hematuria and guaiac positive stool -Continue amiodarone per cardiology--> taper order in place by Dr. Mcclelland -Cardiology is following-appreciate input NSTEMI -Suspect NSTEMI type II given tachycardia and anemia on presentation although patient has several risk factors that place her at increased risk for coronary disease and type I NSTEMI -Peak troponin was 20,707 -Do anticipate the patient has significant coronary disease but we are unfortunately limited with care at this time given overall clinical picture -Had an echo in January that had a normal EF at 65% -Echo remained stable when compared to echo approximately 1 month ago -Unable to initiate antiplatelet therapy or anticoagulation so we will pursue medical therapy at this time and depending on her course consider further outpatient work-up -EKG shows some ST-T wave depression but is mild in the lateral/inferior leads but no ST elevation -This did resolve with improved heart rate control -Unable to start aspirin secondary to bleeding as noted above -Continue beta-scar but reduce dose from 25 mg a day to 12.5 mg a day secondary to bradycardia -No ANTHONY inhibitor or ARB given renal function -Cardiology consultation is pending but anticipate medical management at this point given other comorbidities and risks Acute blood loss anemia -Patient is having both hematuria and is guaiac positive--> hematuria has improved -Urology is following for her hematuria--> Alexandre is in place and no need for continuous bladder irrigation -GI is following for her positive guaiac stool and is proposing EGD and colonoscopy when she is more medically stable in the future -Patient was transfused 3 units of packed red blood cells for hemoglobin of 5 on 02/16/2021 -Hemoglobin has now stabilized -Continue to monitor with CBC in a.m. -Likely multifactorial with thrombocytopenia which I suspect was related to consumption with bleeding as well as being on Eliquis 10 mg twice daily for an extended period of time in conjunction with EMANUEL -stop anticoagulation indefinitely Metabolic acidosis -Serum bicarbonate is trending up with p.o. replacement--> may need to decrease dose once normalizes if she becomes more alkalotic -pH on blood gas is 7.28 and bicarb is 16.6-PCO2 is 35.3 02/20/2021 -Suspect related to chronic renal disease -Continue oral bicarb -Treating her metabolic acidosis may improve her respiratory rate some Hypokalemia -P.o. potassium replacement given -Repeat in a.m. Thrombocytopenia -Suspect consumption although slowly trending back down -With active bleeding patient was transfused 2 pack of platelets on 10/16/2020 -Platelet count has appeared to stabilize -CBC in a.m. -Monitor closely Hematuria/hydronephrosis -Urology is following -Hematuria has improved and almost resolved -Maintain Alexandre until okay to remove from urology -Patient has stent in place -Continue Flomax Guaiac positive stool -GI is following and plans for EGD and colonoscopy in the future once patient is more medically stable inpatient versus outpatient -We will continue twice daily Protonix at this time with plans to switch to daily if no bleeding at discharge -Continue oral Protonix 40 mg twice daily Chronic left soleal DVT -First noted on ultrasound January 19, 2021 -Patient has had no propagation since that point time -Would recommend repeat ultrasound in 1 week and if no propagation likely okay to leave off anticoagulation and not proceed with IVC -If patient demonstrates propagation will need to consider IVC placement -Would not recommend reinitiation of anticoagulation with considerable bleeding at this time CKD stage IV -Baseline serum creatinine appears to be between 2.5 and 3 -Serum creatinine is worsening and is at 3.55 but Lasix was given yesterday by pulmonary -RONALD Alexandre -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 -Follow-up with nephrology as an outpatient as long as patient remains stable Potential sepsis -With marked debilitation after recent extensive hospitalization related to Covid -Cultures negative with no growth to date -Complete full course of antibiotics for suspected pneumonia as patient was not able to produce a specimen DM-2 uncontrolled -Continue sliding scale -We will add 5 units of Lantus his blood sugars have been uncontrolled -Was on a higher dose previously but discontinued due to some hypoglycemia -Accu-Cheks before meals and at bedtime -Carb controlled diet Hypertension/hyperlipidemia -Continue amlodipine, hydralazine and metoprolol -Continue to monitor blood pressure -Continue statin GERD -Continue p.o. Protonix 40 mg twice daily DVT prophylaxis -Hold Eliquis given bleeding -SCD right lower extremity -Known clot in left lower extremity CODE STATUS -Full code -Her overall prognosis is extremely poor and I do anticipate that she is 6 months or less to live. She has had multiple hospitalizations and multiple comorbidities. I had an extensive discussion with the patient today with regards to her current medical status. She has multiorgan disease and when we attempt to help and treat 1 comorbidity we end up causing a problem in another area. She was somewhat open to the discussion of hospice upon my conversation on 02/20/2021 but seemed less open with palliative care. On 02/21/2021 she perseverated on going home with a full discharge although she is not capable of taking care of herself at all and is clearly not stable for any discharge plan out of the hospital unless it would be to hospice at this time. I did call her daughter twice and was unable to get a hold of her. She does present on 02/22/2021 to visit her mom and per discussion with nursing staff agrees that her overall prognosis is poor and has had discussions with her in the past with regards to placement and hospice. Unfortunately, Ms. Ramirez is still resistant and perseverating on going home. Charges/Coding Visit Charges Inpatient E&M: 17367 Subs Hosp L2
--- NOTE | 2021-02-22 16:28 | PCM.HOSP.N ---
Hospitalist Note Daughter was able to come in and has had discussions with her mother regarding her current medical status and overall prognosis and they have come to the conclusion that hospice would be the best line of care for her. The patient is aware that this means she is dying and has 6 or less months to live and understands that this will be comfort and quality related care rather than quantity related care. I do believe she will likely qualify for the inpatient hospice unit given her respiratory status and other issues and do anticipate life expectancy to be days to weeks. Hospice was called and plans to set up arrangements to initiate this tomorrow 02/23/2021.
[2021-02-22] MEDS: Tamsulosin HCl 0.4 MG Capsule PO (17:08)
[2021-02-22 17:15] LABS: Bedside Glucose 188 mg/dL (70-110)
[2021-02-22] MEDS: Atorvastatin Calcium 40 MG Tablet PO (21:32)
[2021-02-22] MEDS: Metoprolol Tartrate 25 MG Tablet 12.5 MG PO (21:34)
[2021-02-22] MEDS: 0.9% Saline Lock 10 ML Syringe IV (21:39)
[2021-02-22 22:36] LABS: Bedside Glucose 215 mg/dL (70-110)
[2021-02-23] VITALS (9 sets, daily range): BP systolic 135–152; BP diastolic 60–75; PULSE 59–93; RESP 16–18; TEMP 36.4–36.7; O2SAT 93–96
[2021-02-23] MEDS: guaiFENesin 10 ML UDC (200MG/10ML) 20 ML PO (00:08)
[2021-02-23] MEDS: hydrALAZINE 50 MG Tablet 100 MG PO (05:47)
[2021-02-23] MEDS: Amiodarone 200 MG Tablet PO (05:48)
[2021-02-23] MEDS: Insulin Lispro 100 UNIT/ML INSULN.PEN SC (06:30)
[2021-02-23 06:36] LABS: Bedside Glucose 219 mg/dL (70-110)
[2021-02-23] MEDS: Ipratropium/Albuterol Sulfate 3 ML AMPUL.NEB INHALATION (07:32)
--- NOTE | 2021-02-23 09:05 | CASEMGMT ---
SARAH called [facility]. SARAH spoke with Kapil. Kapil received referral information and it has been passed on to the pivot maker who should be reaching out to family in the next 30 minutes. Yaneli BANEGAS
[2021-02-23 09:22] LABS: Anion Gap 11 (5-15); BUN 49 mg/dL (7-18); Calcium,Total 7.2 mg/dL (8.5-10.1); Chloride 114 mmol/L (98-107); Creatinine, Serum 3.77 mg/dL (0.55-1.02); EST Glomerular Filtration Rate 13 mL/min (>60); Est Glom Filt Rate - Afr Amer 15 mL/min (>60); Estimated Creatinine Clearance 10.03 ml/min; Glucose 189 mg/dL (74-106); Potassium 3.1 mmol/L (3.5-5.1); Sodium Level 143 mmol/L (136-145)
[2021-02-23] MEDS: amLODIPine 10 MG Tablet PO (09:39)
[2021-02-23] MEDS: Pantoprazole Sodium 40 MG Tablet PO (09:39)
[2021-02-23] MEDS: guaiFENesin 1,200 MG Tablet 1200 MG PO (09:39)
[2021-02-23] MEDS: Metoprolol Tartrate 25 MG Tablet 12.5 MG PO (09:39)
[2021-02-23] MEDS: Sodium Bicarbonate 650 MG Tablet PO (09:39)
[2021-02-23 09:51] LABS: Bedside Glucose 167 mg/dL (70-110)
--- NOTE | 2021-02-23 10:08 | CASEMGMT ---
SARAH returned a phon call from Andres with Hospice. Andres asked about a discharge plan for patient. SARAH let her know according to physician's note from yesterday it looked like inpatient Hospice unit. Andres will let physician know this information. SARAH let her know if not [facility] then it would be [facility]. She is working on getting a hold of patient's daughter to set up an appt. Andres will get back to SARAH. Yaneli Ward TRACK MOVING MACHINE OPERATOR BASSAM
--- NOTE | 2021-02-23 10:16 | CASEMGMT ---
SARAH called Natalia with [facility]. SARAH let Natalia know that patient and her daughter have agreed to Hospice. Currently it may be inpatient Hospice unit vs back to [facility]. Natalia said either is fine and she asked that SARAH keep her updated. Yaneli BANEGAS
--- NOTE | 2021-02-23 10:53 | CASEMGMT ---
SARHA spoke with Andres at Hospice. Andres is meeting with patient's daughter at 1130 to have Hospice papers signed. Dr Redmond needs to call Dr Lara at Hospice to see if patient can go to the [facility]. Andres said if patient is okayed to go to the IPU the Hospice transport unit will pick her up at noon. SARAH updated RN and physician. SARAH also gave physician Dr Lara phone number. Yaneli Ward PROOF OPERATOR WAFER LINE WORKER
--- NOTE | 2021-02-23 12:02 | PCM.PN.CARD ---
Subjective Subjective The patient appears to be awake and alert. She has no new acute cardiovascular complaints. She is pending further evaluation for hospice therapy according to the [facility] medical staff. Objective Data Vital Signs: Vital Signs Temp Pulse Resp BP Pulse Ox 97.5 F L 62 16 135/60 H 96 02/23/21 09:14 02/23/21 09:39 02/23/21 09:14 02/23/21 09:14 02/23/21 09:14 Oxygen Flow Rate (L/min) 5 Oxygen Delivery Method Nasal Cannula Weight: 136 lb 10.986 oz Body Mass Index (BMI) 23.1 Intake & Output: Intake and Output for Last 24 Hours 02/21/21 02/22/21 02/23/21 23:59 23:59 23:59 Intake Total 200 / 200 340 / 580 530 / 530 Output Total 350 / 450 300 / 400 200 / 200 Balance -150 / -250 40 / 180 330 / 330 Lab / Micro Data Result Diagrams: 02/22/21 06:22 02/23/21 08:40 Labs: Laboratory Results - last 24 hr 02/22/21 12:16: POC Glucose 205 H 02/22/21 17:06: POC Glucose 188 H 02/22/21 22:29: POC Glucose 215 H 02/23/21 06:29: POC Glucose 219 H 02/23/21 08:40: Sodium 143, Potassium 3.1 L, Chloride 114 H, Carbon Dioxide 18.0 L, Anion Gap 11, BUN 49 H, Creatinine 3.77 H, Estim Creat Clear Calc 10.03, Est GFR (MDRD) Af Amer 15 L, Est GFR (MDRD) Non-Af 13 L, BUN/Creatinine Ratio 13.0, Glucose 189 H, Calcium 7.2 L 02/23/21 09:34: POC Glucose 167 H Cardiology Labs/Tests 02/23/21 08:40: Sodium 143, Potassium 3.1 L, Chloride 114 H, Carbon Dioxide 18.0 L, Anion Gap 11, BUN 49 H, Creatinine 3.77 H, Est GFR (MDRD) Af Amer 15 L, Est GFR (MDRD) Non-Af 13 L, BUN/Creatinine Ratio 13.0, Glucose 189 H, Calcium 7.2 L Rhythm: Sinus rhythm Physical Exam Narrative This is a pale appearing older than stated age appearing 75-year-old white female. Const alert and oriented x3 Orientation / Consciousness: awake HEENT normocephalic, head/scalp atraumatic and hearing grossly normal bilaterally Eyes PERRL, EOMs intact bilaterally and conjunctivae normal Neck full ROM, supple and no JVD Resp Auscultation: rhonchi Cardio Rate: regular rate Rhythm: regular rhythm Heart Sounds: S1 normal and S2 normal GI normal to inspection, nondistended, normoactive bowel sounds Extremity no pedal edema Skin no rashes or lesions noted Neuro oriented x3, moves all extremities, no focal motor deficits and no sensory deficits noted Psych cooperative Assessment & Plan Assessment/Plan (1) Atrial fibrillation: PLAN: At the present time she appears to be remaining in sinus rhythm. She will continue medical therapy which has included an amiodarone taper. Again she does not appear to be an ideal candidate for long-term oral systemic anticoagulant therapy based upon her multiple noncardiac comorbidities/hemorrhagic issues/hematologic issues, etc. (2) Acute and chronic respiratory failure with hypoxia: PLAN: She continues to follow with internal medicine and pulmonology as deemed appropriate. (3) Acute blood loss anemia: PLAN: Based upon her hemorrhagic issues she is not thought to be a candidate for long-term oral systemic anticoagulant therapy. (4) Thrombocytopenia: PLAN: Based upon her hematologic issues there is also concern about initiation of long-term oral systemic anticoagulant therapy. Addt'l Comments It also appears that she is being considered for hospice therapy. This note was generated using a voice recognition system and there may be incorrect words, spelling or punctuation that were not noted when reviewing the office note prior to saving.
--- NOTE | 2021-02-23 12:09 | CASEMGMT ---
Patient has been accepted at the inpatient Hospice unit. 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 SARAH faxed DNR to Hospice. SARAH notified patient, RN, and principal secretary. SARAH also called patient's daughter Brandi and Andres from Hospice was with her so she is aware of transport. SARAH also called [facility] and left her a voice mail letting her know the plan. SARAH also called Natalia at [facility] and let her know patient is going to inpatient Hospice. She thanked SARAH for the update. Plan: d/c to [facility]patient [facility]. Hospice transported patient. Yaneli BANEGAS
--- NOTE | 2021-02-23 12:11 | NURSING ---
Report given to Wilda at [facility]. Per RN, leave RIJ in place.
--- NOTE | 2021-02-23 16:18 | DS.PCM_ITS ---
Providers Date of Admission: 02/16/21 Primary Care Physician: Dr. 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 / Pulmonary Medicine Routine Consulting Provider: Pulmonary Medicine [facility] Reason for Consult: Acute hypoxic failure EMERGENT Consult: No Notified: Yes Date Notified: 02/16/21 Time Notified: 17:30 Method of Notification: Text 02/16/21 21:07 Consult: Gastroenterology Routine Consulting Provider: [facility] Reason for Consult: anemia-acute and occult positive EMERGENT Consult: No Notified: Yes Date Notified: 02/16/21 Time Notified: 07:14 Method of Notification: Verbal 02/18/21 14:05 Consult: Cardiology Routine Consulting Provider: Gonzalez Sharp Reason for Consult: Troponin elevation/New atrial Fibrillation EMERGENT Consult: No Notified: Yes Date Notified: 02/18/21 Time Notified: 15:02 Method of Notification: Text 02/18/21 14:42 Consult: Hospice / Palliative Care Routine Consulting Provider: [facility] Reason for Consult: poor prognosis EMERGENT Consult: No Notified: Yes Date Notified: 02/18/21 Time Notified: 15:19 Method of Notification: Answering Service Reason For Visit: SYMPTOMATIC ANEMIA Diagnosis Discharge Diagnosis (1) Atrial fibrillation: Status: Acute Code(s): I48.91 - Unspecified atrial fibrillation (2) Acute and chronic respiratory failure with hypoxia: Status: Chronic Code(s): J96.21 - Acute and chronic respiratory failure with hypoxia (3) Acute blood loss anemia: Status: Acute Code(s): D62 - Acute posthemorrhagic anemia (4) Thrombocytopenia: Status: Acute Code(s): D69.6 - Thrombocytopenia, unspecified Medications at Discharge Home Medications amlodipine 10 mg PO DAILY 06/05/18 atorvastatin 40 mg PO QHS 06/05/18 lansoprazole 30 mg PO DAILY 11/03/20 pregabalin 50 mg PO TID #0 cap 11/07/20 ondansetron 4 mg PO TID PRN 3 Days #10 tab 12/02/20 docusate sodium [DOK] 100 mg PO DAILY 12/17/20 hydralazine 100 mg PO TID 12/17/20 acetaminophen [Tylenol] 650 mg PO Q4H PRN PRN #0 tab 01/21/21 guaifenesin 20 ml PO Q4H PRN PRN #0 ml 01/21/21 Eliquis 10 mg PO BID 01/29/21 Lantus Solostar U-100 Insulin 10 unit SUBCUT QPM 01/29/21 aspirin 81 mg PO DAILY 01/29/21 carvedilol 3.125 mg PO BID 01/29/21 insulin lispro [Humalog KwikPen Insulin] See Protocol SUBCUT ACHS 01/29/21 tamsulosin 0.4 mg PO DAILY@1730 01/29/21 dexamethasone [Decadron] 6 mg PO DAILY #0 tab 02/11/21 Hospital Course Operations None Procedures None Summary of Care Provided Minutes Spent on Discharge: 45 Hospital Course: Patient is a 75 y/o with an extensive PMH as outlined who was admitted from an outside hospital with a complaint of hematuria. She was also noted to have heme positive stools. Hemoglobin was 6.7, and so she was transfused with one uit of PRBC. She had just been discharged from [facility] on 02/11/2021 afer being manged for covid 19 infection and acute hypoxic respiratory failure. She received Zosyn and linezolid and baricitinib during that admission as well as dexamethasone. During this admission, she was admitted and managed for sepsis of unclear etiology as well as normal cytopenia and acute metabolic encephalopathy with acute blood loss anemia. Of note, during previous admission she was noted to have a DVT of the lower extremity. Cardiology and critical care were consulted. Urology and GI were also consulted on account of the hematuria and suspected GI blood loss. Blood cultures were negative so empiric antibiotics were discontinued. Patient was initially admitted to the ICU and transferred out of the ICU subsequently when she improved. Patient remained very debilitated during admission as she had been during previous admissions. Palliative care was consulted and thought patient was hospice appropriate. Patient initially demurred but her daughter was brought in and counseled and eventually patient agreed to be evaluated by hospice. She was seen by the hospice team on 02/23/2021 and agreed to go to inpatient hospice care. CODE STATUS was changed to DNR CC. Patient was seen and examined prior to discharge. She was very frail and lethargic. She had no active complaints. Review of systems otherwise negative. Physical Exam Const alert, oriented x3 and no apparent distress Constitutional Narrative: lethargic Orientation / Consciousness: awake and lethargic Exam Limitations: no limitations HEENT normocephalic, head/scalp atraumatic and moist oral mucous membranes Eyes PERRL and EOMs intact bilaterally Eyes Narrative: No icterus, conjunctival pallor bilaterally Neck no lymphadenopathy Neck Narrative: Right IJ in place Resp normal respiratory effort, no retractions and no use of accessory muscles Resp Narrative: coarse crackles in all lung gutiérrez bilaterally. On 5L of oxygen. Auscultation: rhonchi and wheezes; Negative for crackles or rales Cardio regular rhythm, S1 normal heart sound, S2 normal heart sound, no murmurs, no rub, no gallops, no clicks and no JVD Cardio Narrative: Mild bradycardia GI normal to inspection, nondistended, normoactive bowel sounds, soft to palpation, non-tender and non-distended Extremity Extremity Narrative: Clubbing present, no cyanosis or edema Skin no rashes or lesions noted, no wounds, skin turgor normal, no jaundice, no petechiae and no mottling Neuro oriented x3, moves all extremities and no focal motor deficits Sensorium / Orientation: awake and alert Speech: speech normal Psych Psych Narrative: flat affect Weight / BMI Weight Weight: 136 lb 10.986 oz Body Mass Index (BMI) 23.1 ABG / Lab / Microbiology Data Result Diagrams: 02/22/21 06:22 02/23/21 08:40 Laboratory: Laboratory Results - last 24 hr 02/22/21 17:06: POC Glucose 188 H 02/22/21 22:29: POC Glucose 215 H 02/23/21 06:29: POC Glucose 219 H 02/23/21 08:40: Sodium 143, Potassium 3.1 L, Chloride 114 H, Carbon Dioxide 18.0 L, Anion Gap 11, BUN 49 H, Creatinine 3.77 H, Estim Creat Clear Calc 10.03, Est GFR (MDRD) Af Amer 15 L, Est GFR (MDRD) Non-Af 13 L, BUN/Creatinine Ratio 13.0, Glucose 189 H, Calcium 7.2 L 02/23/21 09:34: POC Glucose 167 H Microbiology: Microbiology 02/16/21 17:00 Blood Culture (Wb) - Anticubital Left Blood Culture - Final No growth in 5 days. 02/16/21 04:00 Blood Culture (Wb) - Other Blood Culture - Final No growth in 5 days. 02/16/21 09:25 Urine Catheter - Alexandre Urine Culture - Final Culture exhibits no growth. 02/16/21 20:35 Stool Stool Occult Blood (TANIYA) - Final Occult Blood Positive 02/16/21 09:25 Urine, Clean Catch Legionella Antigen - Final 02/16/21 09:25 Urine, Clean Catch Streptococcus pneumoniae Antigen (M - Final D/C Instructions Discharge Diet: No restrictions Meaningful Use Info Meaningful Use Diagnoses (Choose all that apply): None applicable Discharge Plan Admission Admit Date/Time: 02/16/21 02:48 Primary Reason for Your Visit: sepsis, debility Attending Provider: Zully Redmond Primary Care Provider: Shawn Almeida Consulting Providers: Gonzalez Sharp ; Lavinia Rudd ; Paco Raymond ; Jennie Vega ; Michell Malcolm ; Shantel Juarez ; Aubree Frey SILK WINDING MACHINE OPERATOR ; Sekou Fernandez ; Nicholas Mcfarland ; Elizabeth Reeves SILK WINDING MACHINE OPERATOR ; Ashlyn Kaminski Discharge Orders/Prescriptions Prescriptions: No Action atorvastatin 40 MG tablet 40 mg PO QHS RF: 0 amlodipine 10 MG tablet 10 mg PO DAILY RF: 0 lansoprazole 30 mg Capsule,Delayed Release(Dr/Ec) 30 mg PO DAILY RF: 0 pregabalin 50 MG capsule 50 mg PO TID Qty: 0 RF: 0 hydralazine 50 mg tablet 100 mg PO TID RF: 0 docusate sodium [DOK] 100 MG capsule 100 mg PO DAILY RF: 0 ondansetron 4 mg tablet,disintegrating 4 mg PO TID PRN (Reason: nausea and vomiting) 3 Days Qty: 10 RF: 0 acetaminophen [Tylenol] 325 mg Tablet 650 mg PO Q4H PRN PRN (Reason: Fever, pain 1-01/18) Qty: 0 RF: 0 guaifenesin 100 mg/5 mL Liquid 20 ml PO Q4H PRN PRN (Reason: COUGH) Qty: 0 RF: 0 carvedilol 3.125 mg tablet 3.125 mg PO BID RF: 0 tamsulosin 0.4 mg capsule 0.4 mg PO DAILY@1730 RF: 0 aspirin 81 mg tablet,chewable 81 mg PO DAILY RF: 0 insulin lispro [Humalog KwikPen Insulin] 100 unit/mL insulin pen See Protocol unit subcut ACHS RF: 0 Lantus Solostar U-100 Insulin 100 unit/mL (3 mL) insulin pen 10 unit subcut QPM RF: 0 Eliquis 5 mg tablet 10 mg PO BID RF: 0 dexamethasone [Decadron] 6 mg tablet 6 mg PO DAILY Qty: 0 RF: 0 Referrals / Follow Up: Shawn Almeida MD [Primary Care Provider] - Disposition Disposition (needs filled in before D/C Order can be placed): Hospice in Medical Facility Charges/Coding Visit Charges Inpatient E&M: 97457 Disch Hosp
== END 2021-02-23 12:22 | disposition hospice, inpatient (51) | DRG 720 ==
LOC: PCU 02-18 08:58 → ICU 02-18 08:58 → PCU 02-20 08:09
PROVIDERS: Internal Medicine; Internal Medicine Critical Care Medicine; PCP Family Medicine; Visit Provider Student in an Organized Health Care Education/Training Program
DX: A41.9 Sepsis, unspecified organism (principal); I48.91 Unspecified atrial fibrillation; J96.21 Acute and chronic respiratory failure with hypoxia; D62 Acute posthemorrhagic anemia; D69.6 Thrombocytopenia, unspecified; G93.41 Metabolic encephalopathy; E11.65 Type 2 diabetes mellitus with hyperglycemia; E11.22 Type 2 diabetes mellitus with diabetic chronic kidney disease; I82.562 Chronic embolism and thrombosis of left calf muscular vein; E87.6 Hypokalemia; E83.42 Hypomagnesemia; E87.0 Hyperosmolality and hypernatremia; E87.8 Other disorders of electrolyte and fluid balance, not elsewhere classified; I12.9 Hypertensive chronic kidney disease with stage 1 through stage 4 chronic kidney disease, or unspecified chronic kidney disease; N18.4 Chronic kidney disease, stage 4 (severe); E78.5 Hyperlipidemia, unspecified; K21.9 Gastro-esophageal reflux disease without esophagitis; E43 Unspecified severe protein-calorie malnutrition; I45.10 Unspecified right bundle-branch block; R65.20 Severe sepsis without septic shock; J44.0 Chronic obstructive pulmonary disease with (acute) lower respiratory infection; J15.9 Unspecified bacterial pneumonia; U09.9 Post COVID-19 condition, unspecified; E87.2 Acidosis; E11.649 Type 2 diabetes mellitus with hypoglycemia without coma; R19.5 Other fecal abnormalities; K92.2 Gastrointestinal hemorrhage, unspecified; R77.8 Other specified abnormalities of plasma proteins; R54 Age-related physical debility; Z66 Do not resuscitate; Z96.0 Presence of urogenital implants; Z79.01 Long term (current) use of anticoagulants; Z79.4 Long term (current) use of insulin; Z79.82 Long term (current) use of aspirin; Z99.81 Dependence on supplemental oxygen; Z79.899 Other long term (current) drug therapy; Z87.891 Personal history of nicotine dependence
CPT/HCPCS: 36415; 36600; 70450; 71045; 74176; 80048; 80053; 80202; 82274; 82803; 82962; 83605; 83735; 84100; 84443; 84484; 85025; 85027; 85379; 85610; 86022; 86644; 86850; 86900; 86901; 86920; 86922; 86965; 87040; 87086; 87449; 92960; 93005; 93308; 93970; 94002; 94003; 94640; 94667; 94668; 97110; 97162; 97166; 97530; 97535; 97802; 97803; J2997; J7040; J7050; P9016; P9035; Q9957; A4216; C8924; J1940; J2405